=== PATIENT | female | born 1945 | race Caucasian/White ===

== ENCOUNTER → 2020-03-09 10:10 | Outpatient (REF) | payer MEDICARE, SELFPAY ==
--- NOTE | 2020-03-09 | NM_ITS ---
Lexiscan Myocardial perfusion study Indication: Chest pain, assess for coronary artery disease and ischemia Technique: The patient was brought in for a Lexiscan perfusion study on 03/09/2020 and was injected 0.4 mg of Lexiscan intravenously. Within a minute of this injection 25 mCi of sestamibi was given intravenously. Images were obtained using the SPECT gamma camera interlaced with the gating device. Images were obtained in supine position. Resting perfusion study was performed on 03/12/2020. Patient was administered 25 mCi of sestamibi intravenously at rest. Images were then obtained in supine position. Total DLP 55mGy-cm. Images were processed with the software and compared side to side in short axis, horizontal long axis and vertical long axis views. Findings: Raw acquisition was reviewed. The stress perfusion study showed no significant perfusion abnormality. Both uncorrected as well as CT attenuation corrected images were reviewed. The gated study shows normal LV systolic function with calculated LVEF of > 75%. LV cavity is normal in size. The gated study shows normal wall thickening and contraction of segments. Resting study shows no significant perfusion abnormality. Gating at rest reveals normal wall motion with ejection fraction at > 75%. The findings are consistent with no reversible or fixed perfusion abnormality. Impression: 1. Myocardial perfusion imaging study shows normal myocardial perfusion. No evidence of any ischemia or infarction. 2. Gated LVEF is > 75%. 3. Transient ischemic dilatation not present. EKG component of the test reported separately.
--- NOTE | 2020-03-09 10:00 | CA_ITS ---
Acquisition Time: 2020-03-09 10:19:34 Total Exercise Time: 00:05:44 Test Indications: COPD, CAD Medications: SEE CARD Protocol: JOSE E Max HR: 131 BPM 89% of Pred: 147 BPM Max BP: 178/060 mmHG Max Work Load: 2.7 METS Pt attempted exercise, however unable to walk on the treadmil. Test switched to Lexiscan. Pt tolerated well. Denies any anginal sx. Pt reports to have a headache , sx reversed with Aminophyline 75 mg IV. Tylenol 650 mg ordered. EKG without any arrhythmias, Non-diagnostic for ischemia. Nuclear images to follow. Normotensive response to test. Test reviewed with Dr. Hardy. Referred By: Bronson Hardy Overread By: Mariel Brian
[2020-03-09 14:01] LABS: MANUAL DIFF FLAG NO
[2020-03-09 14:08] LABS: Basophils Percent Auto 0.2 % (0-2); Eosinophils Absolute Auto 0.1 X10*3/uL (0.0-0.4); Eosinophils Percent Auto 0.6 % (0-4); Hematocrit 43.1 % (37-47); Hemoglobin 13.6 g/dl (12.0-16.0); Imm Gran Abs Auto 0.06 X10*3/uL (0.00-0.03); Imm Gran Pct Auto 0.5 % (0.0-0.4); Lymphocytes Percent Auto 15.6 % (20-40); Mean Corpuscular HGB Conc 31.6 g/dl (31.0-35.0); Mean Corpuscular Hemoglobin 30.1 pg (27.0-33.0); Mean Corpuscular Volume 95.4 fL (80-98); Mean Platelet Volume 8.8 fL (9.4-12.3); Monocytes Absolute Auto 0.8 X10*3/uL (0.1-1.2); Monocytes Percent Auto 6.1 % (2-11); Neutrophils Absolute Auto 9.8 X10*3/uL (2.0-8.3); Platelet Count 274 X10*3/uL (160-400); Red Blood Count 4.52 X10*6/uL (4.20-5.50); Red Cell Distribution Width 14.7 % (11.0-16.0); White Blood Count 12.7 X10*3/uL (4.8-10.8)
[2020-03-09 14:41] LABS: Alanine Aminotransferase 8 U/L (0-31); Albumin Level 4.2 g/dL (3.5-5.0); Alkaline Phosphatase 133 U/L (39-117); Anion Gap 12 (12-20); Aspartate Amino Transferase 16 U/L (5-31); Bilirubin Total 0.3 mg/dL (0.0-1.0); Blood Urea Nitrogen 13 mg/dL (9-16); Calcium 9.2 mg/dL (8.4-10.2); Carbon Dioxide 26 mmol/L (22-29); Chloride 106 mmol/L (96-108); Estimated Glomerular Filt Rate > 60; Glucose Random 88 mg/dL (60-115); Potassium 3.6 mmol/l (3.3-5.1); Sodium 140 mmol/L (135-145); Total Protein 6.7 g/dL (6.5-8.0)
[2020-03-09 14:54] LABS: TSH reflex Free T4 0.86 mIU/mL (0.32-4.0)
[2020-03-09 15:30] LABS: Vitamin B12 368 pg/mL (200-900)
[2020-03-12 14:37] LABS: LDL Cholesterol Direct 54 mg/dL (<100)
== END ==
LOC: HO.CARD 10:10
PROVIDERS: Absent Provider Internal Medicine; PCP Internal Medicine; Visit Provider Internal Medicine
DX: R07.2 Precordial pain (principal); E78.5 Hyperlipidemia, unspecified; J44.9 Chronic obstructive pulmonary disease, unspecified; M85.80 Other specified disorders of bone density and structure, unspecified site; I65.23 Occlusion and stenosis of bilateral carotid arteries; I25.10 Atherosclerotic heart disease of native coronary artery without angina pectoris; F17.200 Nicotine dependence, unspecified, uncomplicated; K21.9 Gastro-esophageal reflux disease without esophagitis; M25.50 Pain in unspecified joint; I48.0 Paroxysmal atrial fibrillation; Z99.81 Dependence on supplemental oxygen
CPT/HCPCS: 36415; 78452; 80053; 82607; 83721; 84443; 85025; 93017; A9500; J0280; J2785

== ENCOUNTER 2020-03-15 13:44 | Outpatient (REF) | payer MEDICARE, SELFPAY ==
--- NOTE | 2020-03-15 | MM_ITS ---
EXAMINATION: MM SCREENING DIGITAL BREAST TOMOSYNTHESIS, BILATERAL CLINICAL INFORMATION: Screening. Asymptomatic. The lifetime risk of breast cancer based on the Tyrer-Cuzick Model is 1%. COMPARISON: Mammography: 11/03/2017, 06/13/2016 TECHNIQUE: Digital breast tomosynthesis is performed in both the craniocaudal and mediolateral oblique views along with computer-aided detection (CAD). Synthesized 2D images are generated from the tomosynthesis. FINDINGS: There are scattered areas of fibroglandular density (ACR BI-RADS breast composition Category b). There are no significant masses, abnormal calcifications, or other abnormalities. There are scattered bilateral round and coarse and vascular calcifications again seen. No significant changes. IMPRESSION: No mammographic evidence of malignancy. ASSESSMENT: BI-RADS 2: Benign RECOMMENDATION: Routine annual mammography screening. This patient's information was entered into a reminder system with a target due date for their next mammogram.
== END 2020-03-15 13:45 | disposition home or self-care (01) ==
LOC: HO.MAMMO 13:44
PROVIDERS: PCP Internal Medicine; Visit Provider Internal Medicine
DX: Z12.31 Encounter for screening mammogram for malignant neoplasm of breast (principal)
CPT/HCPCS: 77063; 77067; 78014

== ENCOUNTER → 2020-03-22 09:08 | Outpatient (BNVA) | payer MEDICARE, SELFPAY | PROVIDERS: PCP Anesthesiology; Visit Provider Internal Medicine | DX: R07.2 Precordial pain (principal); I25.10 Atherosclerotic heart disease of native coronary artery without angina pectoris; I48.0 Paroxysmal atrial fibrillation; I65.23 Occlusion and stenosis of bilateral carotid arteries; R20.0 Anesthesia of skin; F17.200 Nicotine dependence, unspecified, uncomplicated | CPT/HCPCS: 99214 ==

== ENCOUNTER 2020-04-18 10:45 | Outpatient (REF) | payer MEDICARE, SELFPAY ==
--- NOTE | 2020-04-18 10:51 | CT_ITS ---
EXAMINATION: CT ANGIOGRAM HEAD CT ANGIOGRAM NECK CLINICAL INFORMATION: Anesthesia of skin. COMPARISON: CT head from 12/12/2018. Brain MRI from 08/25/2017. TECHNIQUE: Initial noncontrast warehouse shipping supervisor imaging of the head and neck was performed. Noncontrast head CT was also performed. Test bolus sequences followed by intravenous administration 80 mL of Omnipaque 350. Helical imaging was performed in the axial plane from the aortic arch to the skull vertex. Delayed postcontrast imaging of the head was also performed. The data was processed at the research technologist's workstation for generation of MIP sequences. Angled MIPs and volume rendered reformatted images were also generated at an offline 3D workstation. Stenoses are assessed in accordance with NASCET criteria unless otherwise indicated. DLP: 1993 mGy-cm This CT examination was performed using dose optimization techniques as appropriate, variously including the following: *Automated exposure control. *Adjustment of mA and/or kV according to patient size (this includes techniques or standardized protocols for targeted exams where dose is matched to indication/reason for exam; i.e. extremities or head). *Use of iterative reconstruction technique. FINDINGS: CT Head: There is no evidence of acute intracranial hemorrhage or edematous territorial infarction. Scattered hypoattenuation in the periventricular and deep white matter are consistent with mild to moderate microangiopathy. Grey-white matter differentiation is preserved. The ventricles are normal in size and configuration. No evidence for obstructive hydrocephalus. No abnormal mass effect or midline shift. No extra-axial fluid collections. No pathologic intra-axial enhancement or regional oligemia. No acute soft tissue or osseous abnormalities. The patient is edentulous.Moderate rightward nasal septal deviation. Mild mucosal thickening of the paranasal sinuses. The mastoid air cells and middle ear cavities are clear. CT Neck: The thyroid gland and remaining cervical soft tissues are within normal limits. Moderate multilevel degenerative spondyloarthropathy of the cervical spine. Straightening of the normal cervical lordosis. Advanced degenerative disc disease from C3-C7 with disc-osteophyte complexes. Moderate facet and uncovertebral joint arthropathy leads to osseous encroachment on the neural foramina from C3-C7. CT Upper Chest: The visualized lung apices are notable for moderate underlying centrilobular emphysema. Moderate subpleural irregular reticulations. Neck CTA: Aortic Arch: Normal contour and caliber with moderate calcific atherosclerotic disease. Two vessel branching pattern of the arch with left common carotid artery arising from the brachiocephalic trunk. Great Vessel Origins: No significant stenosis of the branch origins. Right Common Carotid Artery: Normal opacification without focal stenosis or occlusion. Cervical Right Internal Carotid Artery: Calcific atherosclerotic disease of the carotid bulb and proximal internal carotid artery causing less than 50% stenosis. Left Common Carotid Artery: Normal opacification without focal stenosis or occlusion. Cervical Left Internal Carotid Artery: Calcific atherosclerotic disease of the carotid bulb and proximal internal carotid artery causing less than 50% stenosis. Cervical Right Vertebral Artery: Co-dominant. Normal opacification without focal stenosis or occlusion. Cervical Left Vertebral Artery: Co-dominant. Normal opacification without focal stenosis or occlusion. Brain CTA: Intracranial Internal Carotid Arteries: Calcific atherosclerotic disease of the intracranial internal carotid arteries without occlusion or flow-limiting stenosis. Normal contrast opacification of the petrous, cavernous, paraophthalmic, and supraclinoid segments of the internal carotid arteries without focal stenosis. There is a 0.1 cm infundibulum at the origin of the right posterior communicating artery. Right Anterior Cerebral Artery: There is a 0.25 cm saccular aneurysm projecting posteriorly and inferiorly from the distal A1 segment of the right anterior cerebral artery (image [id number]). Otherwise, normal A1 segment. Normal opacification of the distal segments of the CLARE. Left Anterior Cerebral Artery: Normal A1 segment. Normal opacification of the distal segments of the CLARE. Anterior Communicating Artery: Normal. Right Middle Cerebral Artery: Normal opacification of the M1 segment of the MCA without focal stenosis or occlusion. Normal arborization of the distal segments. Left Middle Cerebral Artery: Normal opacification of the M1 segment of the MCA without focal stenosis or occlusion. Normal arborization of the distal segments. Right Vertebral Artery: Normal opacification of the V4 segment. Normal opacification of the proximal segments of the posterior inferior cerebellar artery. Left Vertebral Artery: Normal opacification of the V4 segment. Normal opacification of the proximal segments of the posterior inferior cerebellar artery. Basilar Artery: Normal opacification without focal stenosis or occlusion. Normal appearance of the proximal superior cerebellar arteries. Right Posterior Cerebral Artery: Normal P1 segment. Normal opacification of the distal segments of the WAREHOUSE SHIPPING SUPERVISOR. Left Posterior Cerebral Artery: The P1 segment is atretic. origin of the WAREHOUSE SHIPPING SUPERVISOR with robust opacification of the posterior communicating artery. Normal opacification of the distal segments of the WAREHOUSE SHIPPING SUPERVISOR. Normal opacification of the superior sagittal, straight, transverse, and sigmoid sinuses. CT/CT angio head neck IMPRESSION: 1. No evidence of acute intracranial hemorrhage or edematous territorial infarction. 2. CTA of the head and neck without proximal occlusion or flow-limiting stenosis. Atherosclerotic disease of the bilateral ICAs causes less than 50% stenoses. 3. There is a 0.25 cm saccular aneurysm arising from the distal A1 segment of the right CLARE. 4. Mild to moderate underlying microangiopathy. 5. Emphysema.
[2020-04-18 11:39] LABS: Anion Gap 12 (12-20); Blood Urea Nitrogen 18 mg/dL (9-16); Calcium 8.6 mg/dL (8.4-10.2); Carbon Dioxide 24 mmol/L (22-29); Chloride 108 mmol/L (96-108); Estimated Glomerular Filt Rate > 60; Glucose Random 111 mg/dL (60-115); Potassium 3.8 mmol/l (3.3-5.1); Sodium 140 mmol/L (135-145)
[2020-04-18] MEDS: iohexoL 350 MG/ML 100 ML INFUS..BTL IV (12:56)
== END 2020-04-18 10:46 | disposition home or self-care (01) ==
LOC: HO.CT 10:45
PROVIDERS: Visit Provider Internal Medicine
DX: I48.0 Paroxysmal atrial fibrillation (principal); R20.0 Anesthesia of skin
CPT/HCPCS: 70496; 70498; 80048; Q9967

== ENCOUNTER → 2020-04-25 12:48 | Outpatient (BNVA) | payer MEDICARE, SELFPAY | PROVIDERS: PCP Internal Medicine; Referring Provider Internal Medicine; Visit Provider Internal Medicine | DX: I25.10 Atherosclerotic heart disease of native coronary artery without angina pectoris (principal); I48.0 Paroxysmal atrial fibrillation; I65.23 Occlusion and stenosis of bilateral carotid arteries; R07.2 Precordial pain; R20.0 Anesthesia of skin; F17.200 Nicotine dependence, unspecified, uncomplicated; Z79.01 Long term (current) use of anticoagulants; Z79.899 Other long term (current) drug therapy | CPT/HCPCS: 99212 ==

== ENCOUNTER 2020-07-04 13:49 | Outpatient (REF) | payer MEDICARE, SELFPAY | END 2020-07-04 13:50 | disposition home or self-care (01) | LOC: HO.LAB 13:49 | PROVIDERS: Visit Provider Nurse Practitioner Family | DX: R31.9 Hematuria, unspecified (principal); N39.0 Urinary tract infection, site not specified | CPT/HCPCS: 87086 ==

== ENCOUNTER → 2020-09-04 13:27 | Outpatient (BNVA) | payer OTHER, SELFPAY | PROVIDERS: PCP Internal Medicine; Visit Provider Internal Medicine | DX: Z13.89 Encounter for screening for other disorder (principal) | CPT/HCPCS: Q3014 ==

== ENCOUNTER 2020-10-19 11:10 | Outpatient (REF) | payer OTHER, SELFPAY ==
--- NOTE | ~2020-10-19 | XR_ITS ---
EXAMINATION: XR LUMBOSACRAL SPINE CLINICAL INFORMATION: Low back pain COMPARISON: Previous x-ray April [address] of the abdomen and pelvis March 2019 TECHNIQUE: Three views of the lumbosacral spine. FINDINGS: There is curvature of the lumbar spine to the right. Bone alignment is otherwise normal. There are L1, L2 and L4 vertebral body compression fractures. The L4 vertebral body compression fracture appears slightly increased from prior exam April 2018. No new fracture is seen. There is degenerative disc disease and facet arthritis of the lower lumbar spine. There is evidence of atherosclerotic disease. There is soft tissue calcification in the left upper quadrant. This projects anteriorly on the lateral view and may represent something in the stomach. XR/XR lumbar spine 2-3V IMPRESSION: L1, L2 and L4 vertebral body compression fractures. The L4 vertebral body compression fracture appears increased from previous exams. Degenerative changes of the lower lumbar spine.
[2020-10-19 14:06] LABS: Hematocrit 41.2 % (37-47); Hemoglobin 13.1 g/dl (12.0-16.0)
[2020-10-19 14:19] LABS: Alanine Aminotransferase 10 U/L (0-31); Albumin Level 4.1 g/dL (3.5-5.0); Alkaline Phosphatase 153 U/L (39-117); Anion Gap 16 (12-20); Aspartate Amino Transferase 18 U/L (5-31); Bilirubin Total 0.6 mg/dL (0.0-1.0); Blood Urea Nitrogen 8 mg/dL (9-16); Calcium 9.3 mg/dL (8.4-10.2); Carbon Dioxide 25 mmol/L (22-29); Chloride 105 mmol/L (96-108); Cholesterol 150 mg/dL; Estimated Glomerular Filt Rate > 60; Glucose Fasting 94 mg/dL (60-99); HDL Cholesterol 67 mg/dL; LDL Cholesterol Calculated 59 mg/dl; Magnesium 1.9 mg/dL (1.6-2.6); Potassium 3.6 mmol/L (3.3-5.1); Sodium 142 mmol/L (135-145); Total Protein 6.8 g/dL (6.5-8.0); Triglycerides 121 mg/dL
== END 2020-10-19 11:11 | disposition home or self-care (01) ==
LOC: HO.HMGCLDS 11:10
PROVIDERS: PCP Internal Medicine; Visit Provider Internal Medicine
DX: M54.5 Low back pain (principal); F41.8 Other specified anxiety disorders; I10 Essential (primary) hypertension; E78.9 Disorder of lipoprotein metabolism, unspecified; I48.0 Paroxysmal atrial fibrillation; F17.200 Nicotine dependence, unspecified, uncomplicated; Z91.09 Other allergy status, other than to drugs and biological substances
CPT/HCPCS: 36415; 72100; 80053; 80061; 83735; 85014; 85018

== ENCOUNTER 2021-01-16 13:58 | Outpatient (REF) | payer OTHER, SELFPAY ==
[2021-01-16 16:23] LABS: MANUAL DIFF FLAG NO
[2021-01-16 16:27] LABS: Basophils Absolute Auto 0.1 X10*3/uL (0.0-0.2); Basophils Percent Auto 0.5 % (0-2); Eosinophils Absolute Auto 0.1 X10*3/uL (0.0-0.4); Eosinophils Percent Auto 0.7 % (0-4); Hematocrit 39.5 % (37-47); Hemoglobin 12.7 g/dl (12.0-16.0); Imm Gran Abs Auto 0.05 X10*3/uL (0.00-0.03); Imm Gran Pct Auto 0.5 % (0.0-0.4); Lymphocytes Absolute Auto 2.5 X10*3/uL (1.2-4.9); Lymphocytes Percent Auto 23.1 % (20-40); Mean Corpuscular HGB Conc 32.2 g/dl (31.0-35.0); Mean Corpuscular Hemoglobin 29.7 pg (27.0-33.0); Mean Corpuscular Volume 92.5 fL (80-98); Mean Platelet Volume 9.4 fL (9.4-12.3); Monocytes Absolute Auto 0.7 X10*3/uL (0.1-1.2); Monocytes Percent Auto 6.8 % (2-11); Neutrophils Absolute Auto 7.4 X10*3/uL (2.0-8.3); Neutrophils Percent Auto 68.4 % (45-73); Platelet Count 370 X10*3/uL (160-400); Red Blood Count 4.27 X10*6/uL (4.20-5.50); Red Cell Distribution Width 15.4 % (11.0-16.0); White Blood Count 10.8 X10*3/uL (4.8-10.8)
[2021-01-16 17:02] LABS: Alanine Aminotransferase < 6 U/L (0-31); Albumin Level 4.1 g/dL (3.5-5.0); Alkaline Phosphatase 132 U/L (39-117); Anion Gap 16 (12-20); Aspartate Amino Transferase 17 U/L (5-31); Bilirubin Total 0.5 mg/dL (0.0-1.0); Blood Urea Nitrogen 7 mg/dL (9-16); Calcium 9.8 mg/dL (8.4-10.2); Carbon Dioxide 23 mmol/L (22-29); Chloride 106 mmol/L (96-108); Estimated Glomerular Filt Rate > 60; Glucose Random 87 mg/dL (60-115); Potassium 3.8 mmol/L (3.3-5.1); Sodium 141 mmol/L (135-145); Total Protein 6.7 g/dL (6.5-8.0)
== END 2021-01-16 13:59 | disposition home or self-care (01) ==
LOC: HO.HMGCLDS 13:58
PROVIDERS: PCP Internal Medicine; Visit Provider Internal Medicine
DX: Z01.818 Encounter for other preprocedural examination (principal); F41.8 Other specified anxiety disorders; I10 Essential (primary) hypertension; E78.9 Disorder of lipoprotein metabolism, unspecified
CPT/HCPCS: 36415; 80053; 85025

== ENCOUNTER 2021-06-13 10:43 | Outpatient (REF) | payer OTHER, SELFPAY ==
--- NOTE | ~2021-06-13 | CT_ITS ---
EXAMINATION: CT ABDOMEN AND PELVIS WITH CONTRAST CLINICAL INFORMATION: Unspecified abdominal pain COMPARISON: 03/17/2019 TECHNIQUE: Multidetector volumetric images were obtained from the superior aspect of the liver through the pubic symphysis following administration 85 mL of Omnipaque 350 intravenous contrast. Sagittal and coronal reformatted images were obtained on the technologist's workstation. Oral contrast: Yes This CT examination was performed using dose optimization techniques as appropriate, variously including the following: *Automated exposure control *Adjustment of mA and/or kV according to patient size (this includes techniques or standardized protocols for targeted exams where dose is matched to indication/reason for exam; i.e. extremities or head) *Use of iterative reconstruction technique DLP: 239 mGy-cm FINDINGS: LUNG BASES: The visualized lung bases are unremarkable. LIVER, GALLBLADDER, AND BILIARY TREE: The liver is normal in size, shape, and attenuation. No focal hepatic lesion or biliary ductal dilatation is present. The gallbladder is unremarkable with no evidence of radiopaque gallstones, gallbladder wall thickening, or obvious pericholecystic inflammatory changes. PANCREAS: Unremarkable. SPLEEN: Unremarkable. ADRENAL GLANDS: Unremarkable. KIDNEYS AND URETERS: The kidneys are normal in size, shape, and attenuation. No hydronephrosis, hydroureter, or calculi seen. No perinephric stranding. BLADDER: Unremarkable. GASTROINTESTINAL TRACT: Small bowel and colon are non-dilated. No bowel wall thickening. No pericolonic inflammatory changes to suggest colitis or diverticulitis. ABDOMINAL WALL: No significant hernia is appreciated. LYMPH NODES: Normal. VASCULAR: Moderate atherosclerosis of the abdominal aorta. No aneurysm. There is moderate atherosclerosis of the celiac and superior mesenteric artery origins and bilateral renal artery origins. PELVIC VISCERA: Suspect hysterectomy. No pelvic mass. OSSEOUS STRUCTURES: Progressive compression of the L4 vertebral body. Stable compression of the L2 vertebral body. CT/CT abdomen pelvis w con IMPRESSION: No explanation for abdominal pain. Fleischner guidelines were followed.
[2021-06-13 11:51] LABS: Blood Urea Nitrogen 8 mg/dL (9-16); Estimated Glomerular Filt Rate > 60
[2021-06-13] MEDS: Barium Sulfate Oral (Berry) 450 ML ORAL.SUSP 900 ML PO (14:39)
[2021-06-13] MEDS: iohexoL 350 MG/ML 100 ML INFUS..BTL IV (14:40)
== END 2021-06-13 10:44 | disposition home or self-care (01) ==
LOC: HO.CT 10:43
PROVIDERS: PCP Internal Medicine; Visit Provider Internal Medicine
DX: G89.29 Other chronic pain (principal); M54.9 Dorsalgia, unspecified; S32.009S Unspecified fracture of unspecified lumbar vertebra, sequela; X58.XXXS Exposure to other specified factors, sequela; Y93.9 Activity, unspecified; Y92.9 Unspecified place or not applicable; Y99.8 Other external cause status; R10.9 Unspecified abdominal pain; R63.4 Abnormal weight loss; R63.0 Anorexia; Z72.0 Tobacco use
CPT/HCPCS: 36415; 74177; 82565; 84520; Q9967

== ENCOUNTER → 2021-06-24 14:35 | Outpatient (BNVA) | payer OTHER, SELFPAY | PROVIDERS: PCP Internal Medicine; Visit Provider Internal Medicine | DX: J44.9 Chronic obstructive pulmonary disease, unspecified (principal); Z87.891 Personal history of nicotine dependence | CPT/HCPCS: 99212 ==

== ENCOUNTER → 2021-06-26 14:30 | Outpatient (BNVA) | payer OTHER, SELFPAY | PROVIDERS: PCP Internal Medicine; Referring Provider Internal Medicine; Visit Provider Internal Medicine | DX: I25.10 Atherosclerotic heart disease of native coronary artery without angina pectoris (principal); I48.0 Paroxysmal atrial fibrillation; I65.23 Occlusion and stenosis of bilateral carotid arteries; F17.210 Nicotine dependence, cigarettes, uncomplicated; Z79.01 Long term (current) use of anticoagulants; Z79.899 Other long term (current) drug therapy | CPT/HCPCS: 93005; 99212 ==

== ENCOUNTER 2021-07-31 14:15 | Outpatient (REF) | payer MEDICARE, SELFPAY ==
--- NOTE | ~2021-07-31 | XR_ITS ---
EXAMINATION: XR CHEST CLINICAL INFORMATION: COPD COMPARISON: February 25, 2019 and December 12, 2018 TECHNIQUE: 2 views of the chest were obtained. FINDINGS: There is hyperinflation lungs. No acute parenchymal disease is appreciated. No pneumothorax or pleural effusion. Heart normal size. No evidence of pulmonary edema. Status post previous left shoulder surgery. There is osteopenia visualized bones. XR/XR chest 2V IMPRESSION: Hyperinflation without acute parenchymal disease.
== END 2021-07-31 14:16 | disposition home or self-care (01) ==
LOC: HO.HMGCX 14:15
PROVIDERS: Visit Provider Internal Medicine
DX: J44.9 Chronic obstructive pulmonary disease, unspecified (principal)
CPT/HCPCS: 71046

== ENCOUNTER 2021-08-01 13:37 | Outpatient (REF) | payer MEDICARE, SELFPAY ==
--- NOTE | ~2021-08-01 | MR_ITS ---
EXAMINATION: MR LUMBAR SPINE WITHOUT CONTRAST CLINICAL INFORMATION: 76-year-old with complaints of low back pain, right hip and leg pain anteriorly in the right leg and foot. Radiculopathy, lumbar region, low back pain. COMPARISON: 12/17/2017 MRI TECHNIQUE: MRI of the lumbar spine was obtained using routine sequences without contrast. FINDINGS: Coronal Alignment: Slight upper lumbar dextrocurvature and partially visualized thoracic levocurvature similar to previous study. Sagittal Alignment: There is 2 mm of grade 1 degenerative spondylolisthesis at L5-S1 which has developed since previous exam. Otherwise lumbar lordotic curvature is relatively maintained. Lumbosacral Junction: Normal. Vertebral Bodies: [id number] compression deformity noted along the superior endplate of L5 asymmetric to the left has developed since previous exam with a central predominance. Since the previous study, there has been approximately 40-50% loss of height of the L4 vertebral body, consistent with a compression fracture, which appears incompletely healed. There is a stable mild anterior wedge compression deformity of L2. There is also a stable mild anterior wedge compression deformity of L1. Disc Spaces and Endplates: Multilevel disc desiccation is again noted. Remodeling of the endplates at L4-L5 and L3-L4 have occurred since the previous exam related to the L4 compression fracture. Prominent anterior marginal spondylosis at L4-L5 and L3-L4 has developed, partially related to the anteropulsion of L4 with mild retropulsion of the superior and inferior endplates of L4 as well. Disc space height loss and disc desiccation at L5-S1 is stable. Anterolateral spondylosis at L2-L3 and L1-L2 are similar to previous study. Spinal Canal: No abnormal developmental findings. Bone Marrow: Type I degenerative marrow signal changes are noted along the endplates at L5-S1 which have developed since previous exam. There are type I degenerative marrow signal changes along the inferior endplate of L3 also developed since previous exam. Minimal type I degenerative endplate change along the anterior aspect of the superior endplate of L4. Mild marrow edema noted along the superior endplate of L4 with low T1 signal likely indicates a nonhealed compression fracture. Conus Medullaris: Terminates at L1. Morphology and signal is normal. Intradural Nerve Roots: Within normal limits. L5-S1: Small central extruded disc herniation with slight cephalad migration is noted with mild indentation of the ventral thecal sac superimposed on diffuse disc bulging somewhat progressed from previous study. Moderate bilateral facet arthropathy appears slightly more prominent on current exam. Marked right-sided paravertebral disc osteophyte complex appears slightly more prominent. Moderate to severe right-sided neural foraminal stenosis and moderate left-sided neural foraminal stenosis have progressed from previous study, with right L5 nerve root impingement progressed. No significant canal stenosis. L4-L5: Diffuse disc bulging with a superimposed right subarticular to foraminal disc herniation progressed from previous study, with flattening of the dural sac asymmetric to the right, partly related to a mild degree of retropulsion of the inferior endplate from the L4 compression fracture. There is moderate bilateral facet arthropathy progressed from previous study, now with mild right subarticular recess stenosis without significant central spinal canal stenosis. Severe right-sided neural foraminal stenosis markedly progressed from previous exam. There is also severe left-sided neural foraminal stenosis progressed from previous study with bilateral L4 nerve root impingement, right more than left. L3-L4: Diffuse disc bulging noted asymmetric to the left progressed from previous study, with flattening of the dural sac, bilateral facet arthropathy and ligamentum flavum thickening progressed from previous study. There is a superimposed left paramedian extruded disc herniation with cephalad migration and indentation of the left ventral thecal sac. There is moderate left subarticular recess stenosis which has developed on current study without definite neural impingement. No significant central spinal canal stenosis. There is moderate left-sided neural foraminal stenosis, with asymmetric disc bulging abutting the exiting left L3 nerve root on current exam. L2-L3: Minimal posterolateral foraminal disc protrusions, right more than left, slightly more apparent on the right without neural impingement. Bilateral facet arthropathy similar to previous exam. No significant canal stenosis or neural foraminal compromise. L1-L2: Small bilateral foraminal disc protrusions stable in appearance without neural impingement, with stable ligamentum flavum thickening and facet arthrosis. No canal or neural foraminal stenosis. Paraspinal/Retroperitoneal: The paravertebral soft tissues appear unremarkable. MR/MR lumbar spine wo con IMPRESSION: 1. Interval moderate compression fracture of the L4 vertebral body which is not yet healed. Interval mild to moderate compression fracture deformity along the superior and plate of L5 asymmetric to the left which appears predominately healed. Stable mild compression fracture deformities of L1 and L2. 2. Multilevel disc bulging and facet arthropathy, some of which is progressed from previous study as described above, with a left paramedian extruded disc herniation with cephalad migration at L3-L4 on current exam. Mild right subarticular recess stenosis at L4-L5 on current study and [id number] left subarticular recess stenosis at L3-L4 also developed since previous exam. No central spinal canal stenosis. 3. Multilevel bilateral neural foraminal stenosis, progressed at multiple levels as detailed above with multilevel bilateral exiting neural impingement as described by level above.
== END 2021-08-01 13:38 | disposition home or self-care (01) ==
LOC: HO.MRI 13:37
PROVIDERS: Visit Provider Internal Medicine
DX: M54.16 Radiculopathy, lumbar region (principal); S32.009A Unspecified fracture of unspecified lumbar vertebra, initial encounter for closed fracture
CPT/HCPCS: 72148

== ENCOUNTER 2021-08-13 15:51 | Outpatient (REF) | payer MEDICARE, SELFPAY ==
--- NOTE | ~2021-08-13 | CT_ITS ---
EXAMINATION: CT CHEST SCREENING CLINICAL INFORMATION: Current smoker. 67 pack year history. COMPARISON: Previous chest CTA April 2016 TECHNIQUE: Multidetector volumetric CT imaging of the chest is performed without contrast using low dose technique. Additional 2D coronal and sagittal reformatted images and axial 3D maximum intensity projection (MIP) images are generated on the CT workstation. This CT examination was performed using dose optimization techniques as appropriate, variously including the following: *Automated exposure control *Adjustment of mA and/or kV according to patient size (this includes techniques or standardized protocols for targeted exams where dose is matched to indication/reason for exam; i.e. extremities or head) *Use of iterative reconstruction technique DLP: 42 mGy-cm FINDINGS: LUNGS: There is evidence of emphysema. There is biapical pleural and parenchymal scarring. There is scarring or subsegmental atelectasis in the anterior segment of the right upper lobe. There is a 3 mm right upper lobe nodule, axial image 218 series 5. There is a 2 mm peripheral or subpleural probably calcified left upper lobe nodule, axial image 261 series 5. There are several small peripheral or subpleural nodules or areas of pleural thickening in the major fissure. There is endobronchial soft tissue opacification in the right lower lobe, for example, axial image 317 series 5. There are increased peripheral reticular markings at the lung bases, right greater than left, questionable for mild interstitial disease. No endobronchial or endotracheal lesion is seen. MEDIASTINUM: The heart does not appear enlarged. There is coronary artery calcification. There is a small pericardial effusion. The mediastinum is otherwise normal. PLEURA: There is no pleural effusion. No pleural mass or thickening. AXILLA: No lymphadenopathy. UPPER ABDOMEN: There is evidence of atherosclerotic disease. OSSEOUS STRUCTURES: There is an old mild T9 vertebral body compression fracture. There are degenerative changes of the spine. There are postsurgical changes to the left shoulder. CT/CT lung screening IMPRESSION: Emphysema. Biapical pleural parenchymal scarring. Scarring or subsegmental atelectasis in the anterior segment of the right upper lobe. Small pulmonary nodules or micronodules. Question mild interstitial disease at the lung bases. Coronary artery calcification and severe atherosclerotic disease. Small pericardial effusion. ASSESSMENT: Lung-RADS category 2: Benign RECOMMENDATION: Annual low-dose chest CT follow-up recommended.
== END 2021-08-13 15:52 | disposition home or self-care (01) ==
LOC: HO.CT 15:51
PROVIDERS: Visit Provider Surgery
DX: Z12.2 Encounter for screening for malignant neoplasm of respiratory organs (principal); F17.210 Nicotine dependence, cigarettes, uncomplicated
CPT/HCPCS: 71271

== ENCOUNTER 2021-09-06 | Outpatient (REF) | payer OTHER, SELFPAY | END 2021-09-06 00:01 | LOC: CF | PROVIDERS: Visit Provider Physician Assistant Medical | DX: Z87.891 Personal history of nicotine dependence (principal) | CPT/HCPCS: G0296 ==

== ENCOUNTER → 2021-09-13 15:46 | Outpatient (BNVA) | payer OTHER, SELFPAY | PROVIDERS: PCP Internal Medicine; Visit Provider Nurse Practitioner Family | DX: M25.561 Pain in right knee (principal); M25.551 Pain in right hip; M25.552 Pain in left hip; M79.7 Fibromyalgia; M51.36 Other intervertebral disc degeneration, lumbar region; M43.06 Spondylolysis, lumbar region; M54.16 Radiculopathy, lumbar region | CPT/HCPCS: 99202 ==

== ENCOUNTER → 2021-10-11 13:43 | Outpatient (BNVA) | payer OTHER, SELFPAY | PROVIDERS: PCP Internal Medicine; Visit Provider Nurse Practitioner Family | DX: Z51.81 Encounter for therapeutic drug level monitoring (principal); F11.20 Opioid dependence, uncomplicated; M79.7 Fibromyalgia; M54.16 Radiculopathy, lumbar region; M51.36 Other intervertebral disc degeneration, lumbar region; M54.9 Dorsalgia, unspecified; G89.29 Other chronic pain | CPT/HCPCS: Q3014 ==

== ENCOUNTER 2021-12-10 06:07 | Outpatient (REF) | payer OTHER, SELFPAY ==
--- NOTE | ~2021-12-10 | FL_ITS ---
EXAMINATION: XR FLUOROSCOPY WITH IMAGES CLINICAL INFORMATION: Radiculopathy lumbar region. COMPARISON: None. TECHNIQUE: Fluoroscopy performed by Anya Anderson. Fluoroscopy time: 0.3 minutes DAP: 2.6 Gycm2 Images: 1 FINDINGS: Lateral view of the lower lumbar spine demonstrates needle placement and contrast injection over the right posterior elements at L4-L5. FL/FL guidance in treatment room IMPRESSION: Fluoroscopy guidance for pain management procedure.
== END 2021-12-10 06:08 | disposition home or self-care (01) ==
LOC: HO.RADIR 06:07
PROVIDERS: Visit Provider Anesthesiology
DX: M54.16 Radiculopathy, lumbar region (principal); M51.36 Other intervertebral disc degeneration, lumbar region; M79.7 Fibromyalgia
CPT/HCPCS: 62323; J3300

== ENCOUNTER 2022-01-10 12:16 | Outpatient (REF) | payer OTHER, SELFPAY ==
[2022-01-10 13:35] LABS: MANUAL DIFF FLAG NO
[2022-01-10 13:49] LABS: Basophils Absolute Auto 0.1 X10*3/uL (0.0-0.2); Basophils Percent Auto 0.4 % (0-2); Eosinophils Percent Auto 0.4 % (0-4); Hematocrit 41.4 % (37.0-47.0); Hemoglobin 13.6 g/dl (12.0-16.0); Imm Gran Abs Auto 0.12 X10*3/uL (0.00-0.03); Imm Gran Pct Auto 1.1 % (0.0-0.4); Lymphocytes Absolute Auto 2.3 X10*3/uL (1.2-4.9); Lymphocytes Percent Auto 20.4 % (20-40); Mean Corpuscular HGB Conc 32.9 g/dl (31.0-35.0); Mean Corpuscular Hemoglobin 29.8 pg (27.0-33.0); Mean Corpuscular Volume 90.8 fL (80.0-98.0); Mean Platelet Volume 8.6 fL (9.4-12.3); Monocytes Absolute Auto 0.8 X10*3/uL (0.1-1.2); Monocytes Percent Auto 7.3 % (2-11); Neutrophils Absolute Auto 7.9 x10*3/uL (2.0-8.3); Neutrophils Percent Auto 70.4 % (45-73); Platelet Count 305 X10*3/uL (160-400); Red Blood Count 4.56 X10*6/uL (4.20-5.50); Red Cell Distribution Width 19.3 % (11.0-16.0); White Blood Count 11.1 X10*3/uL (4.8-10.8)
[2022-01-10 13:58] LABS: Appearance Urine HAZY; Color Urine YELLOW; Glucose Urine UA NEG (NEG); Leukocyte Esterase Urine NEG (NEG); Nitrite Urine NEG (NEG); Specific Gravity - Urine <= 1.005 (1.005-1.025); UACC Culture Trigger NO; Urine Blood 1+ (NEG); Urine Ketones NEG (NEG); Urine Protein NEG (NEG-TRACE)
[2022-01-10 14:00] LABS: Alanine Aminotransferase 12 U/L (0-31); Albumin Level 4.5 g/dL (3.5-5.0); Alkaline Phosphatase 125 U/L (39-117); Anion Gap 15 (12-20); Aspartate Amino Transferase 23 U/L (5-31); Bilirubin Total 0.6 mg/dL (0.0-1.0); Blood Urea Nitrogen 13 mg/dL (9-16); Calcium 9.5 mg/dL (8.4-10.2); Carbon Dioxide 25 mmol/L (22-29); Chloride 106 mmol/L (96-108); Cholesterol 161 mg/dL; Estimated Glomerular Filt Rate > 60; Glucose Fasting 89 mg/dL (60-99); HDL Cholesterol 77 mg/dL; LDL Cholesterol Calculated 58 mg/dl; Potassium 3.5 mmol/L (3.3-5.1); Sodium 142 mmol/L (135-145); Total Protein 7.1 g/dL (6.5-8.0); Triglycerides 132 mg/dL
[2022-01-10 14:21] LABS: TSH reflex Free T4 1.08 uIU/mL (0.32-4.0)
[2022-01-10 14:31] LABS: WBC Urine 0-2 /HPF (0-4)
== END 2022-01-10 12:17 | disposition home or self-care (01) ==
LOC: HO.HMGCLDS 12:16
PROVIDERS: PCP Nurse Practitioner Family; Visit Provider Nurse Practitioner Family
DX: Z00.00 Encounter for general adult medical examination without abnormal findings (principal); R35.0 Frequency of micturition
CPT/HCPCS: 36415; 80053; 80061; 81001; 84443; 85025; 87086

== ENCOUNTER → 2022-02-24 16:03 | Outpatient (BNVA) | payer OTHER, SELFPAY | PROVIDERS: PCP Nurse Practitioner Family; Visit Provider Anesthesiology | DX: M54.16 Radiculopathy, lumbar region (principal); M51.36 Other intervertebral disc degeneration, lumbar region; M79.7 Fibromyalgia; G89.29 Other chronic pain; M54.9 Dorsalgia, unspecified; Z87.81 Personal history of (healed) traumatic fracture | CPT/HCPCS: 99212 ==

== ENCOUNTER 2022-03-19 13:05 | Outpatient (REF) | payer OTHER, SELFPAY | END 2022-03-19 13:06 | disposition home or self-care (01) | LOC: HO.RESP 13:05 | PROVIDERS: PCP Nurse Practitioner Family; Visit Provider Internal Medicine | DX: Z13.89 Encounter for screening for other disorder (principal) ==

== ENCOUNTER 2022-07-02 10:22 | Outpatient (REF) | payer OTHER, SELFPAY ==
--- NOTE | ~2022-07-02 | XR_ITS ---
EXAMINATION: XR CHEST CLINICAL INFORMATION: Acute bronchitis COMPARISON: Chest radiograph 07/31/[address] chest 08/13/2021 TECHNIQUE: 2 views of the chest were obtained. FINDINGS: Again seen are hyperinflated lungs consistent with COPD. No other significant abnormality is noted involving the heart, lungs, mediastinum, bony thorax or soft tissues. XR/XR chest 2V IMPRESSION: COPD. No acute intrathoracic disease.
== END 2022-07-02 10:23 | disposition home or self-care (01) ==
LOC: HO.HMGCX 10:22
PROVIDERS: PCP Nurse Practitioner Family; Visit Provider Internal Medicine
DX: J20.9 Acute bronchitis, unspecified (principal)
CPT/HCPCS: 71046

== ENCOUNTER → 2022-09-15 13:47 | Outpatient (BNVA) | payer OTHER, SELFPAY | PROVIDERS: PCP Nurse Practitioner Family; Visit Provider Anesthesiology | DX: J44.9 Chronic obstructive pulmonary disease, unspecified (principal); Z87.891 Personal history of nicotine dependence | CPT/HCPCS: 94618; 99212 ==

== ENCOUNTER 2022-10-03 11:23 | Day surgery (SDC) | payer OTHER, SELFPAY ==
[2022-09-30 15:27] VITALS: BMI 21.2
--- NOTE | 2022-10-01 10:41 | HO.ANESPROP2 ---
Documented by User: Shahida Hightower NP 10/02/22 10:51 HPI - Anesthesia Eval Consult details Narrative: 77yo F for Spinal Cord Stimulation Trial Previously cancelled self d/t illness 07/2022. Pulmo eval 09/2022 - does not need supplemental O2 by 6 minute walk test, pending overnight oximetry, cough and congestion since restarting smoking Cardio eval 06/2021 - stable (notifed Juma at pain management that patient will need cardiac eval prior to implant) Xarelto for afib - ok'd to hold preop by cardiology [facility] Active Problems Active Problems: All Active Problems (Updated 09/30/22 @ 15:26 by Rachel Simpson, HAIDER) Precordial chest pain (Acute) Arm numbness (Acute) Lipid disorder (Acute) Environmental allergies (Acute) Hypertension, essential (Acute) Bronchitis (Acute) Compression fracture of lumbar spine, non-traumatic (Acute) Weight loss (Acute) Lack of appetite (Acute) Recurrent closed fracture of lumbar vertebra (Acute) Chronic back pain (Acute) Abdominal discomfort (Acute) Lumbar radiculitis (Acute) Recurrent fracture of lumbar vertebra (Acute) Neuropathy (Acute) Acute bronchitis (Acute) Pain management (Acute) Coronary artery disease (Acute) Right knee pain (Acute) Bilateral hip pain (Acute) Fibromyalgia (Acute) Lumbar spondylolysis (Acute) Lumbar degenerative disc disease (Acute) Lumbar radiculopathy (Acute) Major depression, recurrent (Acute) Anxiety, generalized (Acute) Physical exam (Acute) Urinary frequency (Acute) Leukocytosis (Acute) History of vertebral compression fracture (Acute) Chronic pain syndrome (Acute) Brain aneurysm (Acute) Atherosclerotic cardiovascular disease (Acute) Bilateral carotid artery stenosis (Acute) PAF (paroxysmal atrial fibrillation) (Acute ~04/2016) COPD (chronic obstructive pulmonary disease) (Acute) Personal history of nicotine dependence (Acute) Depression with anxiety (Acute) Past Medical History Medical History (Updated 09/30/22 @ 15:26 by Rachel Simpson, HAIDER) Atherosclerotic cardiovascular disease Basal cell carcinoma Bilateral carotid artery stenosis Brain aneurysm COPD (chronic obstructive pulmonary disease) Depression with anxiety History of COVID-19 (~06/2021) History of non-ST elevation myocardial infarction (NSTEMI) (~04/2016) Osteopenia (~2009) PAF (paroxysmal atrial fibrillation) (~04/2016) Personal history of nicotine dependence Family History Family History Father No problems noted. Mother No problems noted. Brother Stroke Surgical History Surgical History History of arthroscopic surgery of shoulder (~2009) History of bladder surgery History of carpal tunnel release History of inguinal hernia repair, bilateral (~2018) History of skin surgery History of thumb surgery History of total hysterectomy History of tubal ligation Social History Social History Housing: Other Housing Other:: mobile home Are you a primary child care lead teacher to a significant other at home: No Do you presently have visiting nurse or other home services: Yes ([facility]) Patient Tobacco Use Status: Current everyday Tobacco user Tobacco use type: Cigarette Cigarettes Per Day: 10 Years Smoked: 68 e-Cigarette/Vaping Use: Never Used Second Hand Smoke Exposure: Yes Use of substances other than those prescribed or required for medical reasons: Yes Have you been hit, kicked, punched, or otherwise hurt by someone within the past year? If so, by whom?: No Are you DNR?: No Advance Directives: Yes Advance Directives Information Provided: Yes Advance Directives on File: Yes Advance Directives Date on File: 12/20/18 Recently lost weight without trying: No Eating poorly because of decreased appetite: No Nutrition Risks: Surgical patient >75years Poor oral hygiene: No (upper & lower denture) Current occupational status: retired and disabled Cognitive needs: No Hearing needs: No Vision needs: No Meds Allergies Allergy/AdvReac Type Severity Reaction Status Date / Time Cephalosporins Allergy Unknown UNKNOWN Verified 09/15/22 15:52 [CEPHALOSPORINS] clonidine [CLONIDINE] Allergy Unknown UNKNOWN Verified 09/15/22 15:52 gabapentin [GABAPENTIN] Allergy Unknown UNKNOWN Verified 09/15/22 15:52 mirtazapine [From REMERON] Allergy Unknown UNKNOWN Verified 09/15/22 15:52 naproxen Allergy Unknown UNKNOWN Verified 09/15/22 15:52 tramadol Allergy Unknown UNKNOWN Verified 09/15/22 15:52 bupropion [From WELLBUTRIN] AdvReac Unknown Shaky Verified 09/15/22 15:52 Home Medications Medication Instructions Recorded Confirmed Last Taken Type clonazepam 0.5 mg tablet 0.5 mg PO TID PRN Anxiety 03/08/20 09/30/22 Unknown History trazodone 150 mg tablet 150 mg PO BEDTIME 03/08/20 09/30/22 Unknown History calcium carbonate 500 mg calcium 500 mg PO DAILY 05/15/22 09/30/22 Unknown History (1,250 mg) chewable tablet (Calcium 500) psyllium husk 0.52 gram capsule 0.52 g PO DAILY 05/15/22 09/30/22 Unknown History (Fiber (psyllium husk)) guaifenesin 400 mg tablet (Chest 400 mg PO QID 07/02/22 Unknown History Congestion Relief) nystatin 100,000 unit/mL oral 4 ml PO TID PRN 09/15/22 Unknown History suspension Exam Exam Date and Time: October 01, 2022 1041 Height,Weight and Vital Signs: Height 5 ft Weight 49.442 kg Pertinent Lab Results Pertinent Lab Results: Laboratory Tests 01/10/22 01/10/22 12:27 12:27 WBC 11.1 H Hgb 13.6 Hct 41.4 Plt Count 305 Sodium 142 Potassium 3.5 Chloride 106 Carbon Dioxide 25 BUN 13 D Creatinine 0.70 Narrative Narrative: From 06/2021 cardiology office visit: Coronary CT from 2018-moderate calcific plaque, most evident in the mid LAD where it is nearly circumferential with moderate luminal narrowing in the 50-69% range.? Moderate nearly circumferential calcific plaque in the mid RCA with about 50% stenosis.? Mild scattered narrowings elsewhere. Neck CTA with nonobstructive disease in both carotids.? However there was 0.25 cm saccular aneurysm noted.? There was microangiopathy. Assessment and Plan Assessment Anesthesia Assessment: Chart Reviewed Documented by User: Jc Posadas MD 10/03/22 13:33 [facility] Past Medical History Medical History (Updated 09/30/22 @ 15:26 by Rachel Simpson RN) Atherosclerotic cardiovascular disease Basal cell carcinoma Bilateral carotid artery stenosis Brain aneurysm COPD (chronic obstructive pulmonary disease) Depression with anxiety History of COVID-19 (~06/2021) History of non-ST elevation myocardial infarction (NSTEMI) (~04/2016) Osteopenia (~2009) PAF (paroxysmal atrial fibrillation) (~04/2016) Personal history of nicotine dependence Family History Family History Father No problems noted. Mother No problems noted. Brother Stroke Family history of problems with anesthesia: No Surgical History Surgical History History of arthroscopic surgery of shoulder (~2009) History of bladder surgery History of carpal tunnel release History of inguinal hernia repair, bilateral (~2018) History of skin surgery History of thumb surgery History of total hysterectomy History of tubal ligation History of Problems with Anesthesia: No Social History Social History Housing: Other Housing Other:: mobile home Are you a primary child care lead teacher to a significant other at home: No Do you presently have visiting nurse or other home services: Yes ([facility]) Patient Tobacco Use Status: Current everyday Tobacco user Tobacco use type: Cigarette Cigarettes Per Day: 10 Years Smoked: 68 e-Cigarette/Vaping Use: Never Used Second Hand Smoke Exposure: Yes Use of substances other than those prescribed or required for medical reasons: Yes Have you been hit, kicked, punched, or otherwise hurt by someone within the past year? If so, by whom?: No Are you DNR?: No Advance Directives: Yes Advance Directives Information Provided: Yes Advance Directives on File: Yes Advance Directives Date on File: 12/20/18 Recently lost weight without trying: No Eating poorly because of decreased appetite: No Nutrition Risks: Surgical patient >75years Poor oral hygiene: No (upper & lower denture) Current occupational status: retired and disabled Cognitive needs: No Hearing needs: No Vision needs: No Meds Allergies Allergy/AdvReac Type Severity Reaction Status Date / Time Cephalosporins Allergy Unknown UNKNOWN Verified 09/15/22 15:52 [CEPHALOSPORINS] clonidine [CLONIDINE] Allergy Unknown UNKNOWN Verified 09/15/22 15:52 gabapentin [GABAPENTIN] Allergy Unknown UNKNOWN Verified 09/15/22 15:52 mirtazapine [From REMERON] Allergy Unknown UNKNOWN Verified 09/15/22 15:52 naproxen Allergy Unknown UNKNOWN Verified 09/15/22 15:52 tramadol Allergy Unknown UNKNOWN Verified 09/15/22 15:52 bupropion [From WELLBUTRIN] AdvReac Unknown Shaky Verified 09/15/22 15:52 Home Medications Medication Instructions Recorded Confirmed Last Taken Type clonazepam 0.5 mg tablet 0.5 mg PO TID PRN Anxiety 03/08/20 09/30/22 Unknown History trazodone 150 mg tablet 150 mg PO BEDTIME 03/08/20 09/30/22 Unknown History calcium carbonate 500 mg calcium 500 mg PO DAILY 05/15/22 09/30/22 Unknown History (1,250 mg) chewable tablet (Calcium 500) psyllium husk 0.52 gram capsule 0.52 g PO DAILY 05/15/22 09/30/22 Unknown History (Fiber (psyllium husk)) guaifenesin 400 mg tablet (Chest 400 mg PO QID 07/02/22 Unknown History Congestion Relief) nystatin 100,000 unit/mL oral 4 ml PO TID PRN 09/15/22 Unknown History suspension Exam Airway Mallampati Class: II TM Dist: >3cm Neck ROM: Limited Heart: rrr Lungs: decreased bs bilat Assessment and Plan Assessment Anesthesia Assessment: Anesthesia Plan Discussed Final Anesthetic Review Family History of Problems with Anesthesia: No History of Problems with Anesthesia: No NPO: Yes ASA Class: IV Final Preanesthetic Review: No Changes in Pt Med Stat, Meds/Allgs Chart Reviewed, Consent Obtained/Reviewed and Anes Risks/Benef Reviewed Patient Risk: High Procedure Risk: Intermediate Anesthetic Plan Anesthetic Plan: MAC: and Agree w/ Assess. and Plan Disposition: Standard PACU
--- NOTE | ~2022-10-03 | FL_ITS ---
EXAMINATION: FL FLUOROSCOPY GUIDANCE IN OR CLINICAL INFORMATION: Spinal cord sterilization trial. COMPARISON: Fluoroscopy for pain management 12/10/2021 TECHNIQUE: Fluoroscopy Supervised By: Dr. Shmuel Mena. Fluoroscopy Time: 2.5 minutes. Cumulative Dose: 38.9 mGy. DAP: 4.83 Gy-cm2. Images: 6. FINDINGS: There are posterior epidural electrodes overlying from T8 to T11 vertebra for pain management. There is mild degenerative disc changes T12-L1 disc level with spondylosis. No lytic or sclerotic process seen. FL/FL guidance in OR IMPRESSION: Fluoroscopy guidance was provided for pain management to the referring physician. No radiologist was present.
[2022-10-03 12:14] VITALS: BP 106/67; PULSE 91; RESP 16; TEMP 36.8; O2SAT 95
--- NOTE | 2022-10-03 12:24 | PC.NURSE ---
MD BRITT AWARE OF PATIENTS TWO FALLS WITH IN THE LAST 1-1/2 WEEKS. FIRST FALL TRIPPED AND FELL HITTING LEFT POSTERIOR HEAD. NO LOC. NO N/V. NO HEMATOMA NOTED. LUMP NOTED. SECOND FALL WITH TRIMMING BUSHES IN THE YARD AND FELL HITTING THE FROM LEFT SIDE OF HER FOREHEAD. NO LOC. NO HEMATOMA NOTED. SHE FELL ON THURSDAY. STOPPED HER XARELTO ON THURSDAY. NO HEMATOMAS NOTED. NO BRUISING. NEUROS INTACT. CLEAR SPEECH. 2MM REACTIVE PUPILS. SYMM SMILE. EQUAL HAND GRASPS.
[2022-10-03] MEDS: Lactated Ringers 1,000 ML 50 ML IVCONT (12:35)
--- NOTE | 2022-10-03 14:22 | MHC.SHP ---
Pre-Procedural Eval Section A Date of Service: 10/03/22 The patient is an INPATIENT: No Changes since office visit: Yes Patient answered all questions The History & Physical has been completed within 30 days and I have reviewed it.: No Section B Chief Complaint: Other intervertebral disc degeneration, lumbar reg Details of Present Illness: As above Relevant Family History (Specify if Yes): No Relevant Social History: None Present Medications: see Short Stay Collaborative assessment Medical History: No relevant PMH History of Previous Operations: Relevant previous surgery/procedure and date(s) Allergies: Allergies Allergy/AdvReac Type Severity Reaction Status Date / Time Cephalosporins Allergy Unknown UNKNOWN Verified 09/15/22 15:52 [CEPHALOSPORINS] clonidine [CLONIDINE] Allergy Unknown UNKNOWN Verified 09/15/22 15:52 gabapentin [GABAPENTIN] Allergy Unknown UNKNOWN Verified 09/15/22 15:52 mirtazapine [From REMERON] Allergy Unknown UNKNOWN Verified 09/15/22 15:52 naproxen Allergy Unknown UNKNOWN Verified 09/15/22 15:52 tramadol Allergy Unknown UNKNOWN Verified 09/15/22 15:52 bupropion [From WELLBUTRIN] AdvReac Unknown Shaky Verified 09/15/22 15:52 Review of Systems Sugical H&P ROS: Negative: Constitution, Neurological, Psychiatric, Hem-Onc, Allergic/Immunologic, Gastrointestinal, Genitourinary, Integumentary, Endocrine and Eyes/Ears/Nose/Throat and Yes, Specify: Cardiovascular (carotid stenosis), Respiratory (COPD, current smoker) and Musculoskeletal (h/o vertebral compression f-xs) Exam Surgical H&P Exam: Normal: HEENT, Normal: Heart, Normal: Lungs, Normal: Extremities, Normal: Abdomen, Normal: Skin and Normal: Neurological Plan Diagnosis/Plan: Unchanged I have reviewed the history and physical and performed a pertinent physical examination on my patient. No changes have occurred unless specified. Time Spent With Patient Time: Total time managing care of this patient today _5___ minutes.
[2022-10-03 16:00] VITALS: BP 98/50; PULSE 69; RESP 16; TEMP 36.8; O2SAT 94
[2022-10-03 16:15] VITALS: BP 104/41; PULSE 69; RESP 16; TEMP 36.7; O2SAT 94
--- NOTE | 2022-10-03 16:18 | PM.OP ---
Brief Operative Note Date of Service: 10/03/22 Pre-op diagnosis: SPONDYLOSIS LUMBAR SPINE WITH RADICULOPATHY Post-op diagnosis: same Procedure: TRIAL of NEVRO SCS Implants: none permanent Surgeon: Shmuel Mena MD Anesthesia: MAC Was an Recreational Vehicle Resort Manager used for this Procedure?: No Estimated blood loss (mL): 0 Pathology: none sent Condition: stable Disposition: PACU
--- NOTE | 2022-10-03 16:19 | W.PM.OPN ---
Operative Note Operative Note Date of Service: 10/03/22 Narrative: trial of Nevro spinal cord stimulator. Tova is very pleasant 77 years old female? who is here for the trial of spinal cord stimulator Nevro for the treatment of Spondylosis of lumbar spine with radiculopathy and pain related to multiple old compression fracture of the lumbar spine vertebra is.. Preoperatively patient received?? clindamycin 300 mg IV intravenously approximately 30 minute before the procedure.? After obtaining informed consent patient was brought to the operating room, she was positioned?? Prone on the operating table, [place] [employer] monitors were applied and patient was? sedated. ? Time-out was performed delineating correct site, side, the nature of the procedure, patient's allergy, preoperative antibiotic if needed.? All operating room staff was participating in OR time-out procedure. Patient's entire back was prepped with ChloraPrep twice and draped with full body fenestrated drape.? Sterilely draped C-arm was brought over operating field and sqare picture of T11-T12, L1, L2 vertebrae as were demonstrated on the screen.?The decision was made to concentrate the attention on T12- L1 interlaminar space.? The location of the projection of the right pedicle center of the _L2 vertebra was found on the skin using C-arm.? This location was injected with mixture of lidocaine 2% and ropivacaine 0.5% 5 cc.? After that 11 blade was used to make a bettie on the skin.? 10 cm 14 gauge introducer epidural needle was inserted through the bettie and advanced to? T12-L1 epidural interspace.? The advancement of the needle was performed on anterior posterior and lateral views.?ADRIANNE to air was used to detect epidural space. ? . the needle was advancing to were the [id number] interspace on anterior posterior and lateral views.Guitar wire and loss of resistance technique were used to locate epidural space.? When guitar wire was spread in the epidural fashion, epidural lead was inserted through the needle and it was advanced to top T8 position PRACTICALLY at THE MIDLINE in the posterior epidural space.? After that location of the projection of the LEFT pedicle center of the? L2 vertebra was found on the skin using C-arm.? This location was injected with mixture of lidocaine 2% and ropivacaine 0.5% 5 cc.? After that 11 blade was used to make a bettie on the skin.? 10 cm 14 gauge? introducer epidural needle was inserted through the bettie and advanced to T12-L1 epidural interspace.? The advancement of the needle was done on AP and lateral views, ADRIANNE to air was used to detect epidural space, guitar wire was advanced to the needle and was spreading in epidural fashion and after that epidural stimulation lead was inserted through the needle and was advancing to the posterior epidural space to the level of T9 upper third of the vertebra with the position slightly left to midline? right inserted wire. The position of the leads verified on anterior posterior and lateral views,The stilets and epidural needle were withdrawn and care was taken not to dislodge the epidural leads. The anchoring devices were dislodged on the leads and advanced to the level of the skin.? The anchoring device was sutured with two 0-0 silk sutures for each anchor? to the skin of the patient.? The screws were tighten on the anchoring devices until 3 clicks were heard. The leads were connected to testing device.? Bacitracin ointment was applied to the entrance point of the needle entrance on the right.? Sterile dressing applied.? The lead was connected to stimulating device which was taped to the skin. The impedance was checked and it was appropriate. The patient tolerated procedure well.? she was taken outside of the operating room to recovery room where she recovered uneventfully.
[2022-10-03 16:30] VITALS: BP 107/52; PULSE 74; RESP 16; O2SAT 92
== END 2022-10-03 16:54 | disposition home or self-care (01) ==
PROVIDERS: PCP Nurse Practitioner Family; Visit Provider Anesthesiology
PROC: (CPT 63650; principal; 2022-10-03 13:00)
DX: M51.36 Other intervertebral disc degeneration, lumbar region (principal); M47.26 Other spondylosis with radiculopathy, lumbar region; G89.4 Chronic pain syndrome; M54.9 Dorsalgia, unspecified; R53.83 Other fatigue; M79.7 Fibromyalgia; M85.80 Other specified disorders of bone density and structure, unspecified site; Z87.81 Personal history of (healed) traumatic fracture; I25.10 Atherosclerotic heart disease of native coronary artery without angina pectoris; I48.0 Paroxysmal atrial fibrillation; I25.2 Old myocardial infarction; J44.9 Chronic obstructive pulmonary disease, unspecified; R63.4 Abnormal weight loss; Z68.21 Body mass index [BMI] 21.0-21.9, adult; F41.8 Other specified anxiety disorders; Z88.8 Allergy status to other drugs, medicaments and biological substances; Z99.89 Dependence on other enabling machines and devices; F17.210 Nicotine dependence, cigarettes, uncomplicated; Z86.16 Personal history of COVID-19
CPT/HCPCS: 63650 ×2; C1713; C1897; J2795

== ENCOUNTER 2022-10-09 09:49 | Outpatient (REF) | payer OTHER, SELFPAY ==
--- NOTE | ~2022-10-09 | XR_ITS ---
EXAMINATION: XR HIP, LEFT CLINICAL INFORMATION: Unilateral primary osteoarthritis. COMPARISON: None available. TECHNIQUE: Two views of the left hip. FINDINGS: Mild decrease in the left hip joint space is seen. No bony erosive changes, fracture or dislocation. Mild periarticular spurring is seen lateral hip joint The soft tissues are normal. XR/XR hip LT min 2V IMPRESSION: Mild degenerative changes left hip. No visible acute fracture or dislocation.
== END 2022-10-09 09:50 | disposition home or self-care (01) ==
LOC: HO.XRAY 09:49
PROVIDERS: PCP Nurse Practitioner Family; Visit Provider Anesthesiology
DX: M16.12 Unilateral primary osteoarthritis, left hip (principal); M79.7 Fibromyalgia; M51.36 Other intervertebral disc degeneration, lumbar region; M54.9 Dorsalgia, unspecified; Z87.81 Personal history of (healed) traumatic fracture
CPT/HCPCS: 73502; 99212

== ENCOUNTER 2022-12-12 14:43 | Outpatient (REF) | payer OTHER, SELFPAY ==
[2022-12-21 05:28] LABS: Methylmalonic Acid 129 nmol/L (87-318)
== END 2022-12-12 14:44 | disposition home or self-care (01) ==
LOC: HO.HMGCLDS 14:43
PROVIDERS: PCP Nurse Practitioner Family; Visit Provider Nurse Practitioner Family
DX: R41.3 Other amnesia (principal)
CPT/HCPCS: 36415; 82607; 82746; 83921

== ENCOUNTER 2023-01-13 11:07 | Outpatient (REF) | payer OTHER, SELFPAY ==
[2023-01-13 13:50] LABS: Appearance Urine Clear; Color Urine Yellow; Glucose Urine UA Negative (Negative); Leukocyte Esterase Urine Trace (Negative); Nitrite Urine Negative (Negative); Specific Gravity - Urine 1.015 (1.005-1.025); UMIC TRIGGER UACC YES; Urine Blood Trace (Negative); Urine Ketones Negative (Negative); Urine Protein Negative (Neg-Trace)
[2023-01-13 13:55] LABS: Bacteria Urine None Seen (None Seen); Hyaline Casts Urine 0-2 /LPF (0-2); Squamous Epithelial Cell Urine 0-2 /HPF (0-2); WBC Urine 0-5 /HPF (0-5)
== END 2023-01-13 11:08 | disposition home or self-care (01) ==
LOC: HO.HMGCLDS 11:07
PROVIDERS: PCP Nurse Practitioner Family; Visit Provider Nurse Practitioner Family
DX: I25.10 Atherosclerotic heart disease of native coronary artery without angina pectoris (principal); E78.9 Disorder of lipoprotein metabolism, unspecified
CPT/HCPCS: 81001

== ENCOUNTER 2023-01-13 12:44 | Outpatient (AMB) | payer OTHER, SELFPAY ==
--- NOTE | 2023-01-13 13:20 | MHC.OFFWIV ---
Intake Vital Signs 01/13/23 13:21 Height 5 ft Weight 50.802 kg BMI 21.9 BP 120/72 Blood Pressure Location Lt brachial Position Sitting Pulse 91 Pulse Source Pulse Oximeter Temp 96.7 F L Temp Source Temporal Artery Scan Pulse Oximetry (%) 95 Oxygen Delivery Method Room Air Intake Visit Reasons: EP ?Center EYE (both) Intake Note: Pt is here c/o bilateral pink eye for the last few weeks. Patient Tobacco Use Status: Current everyday Tobacco user Allergies Cephalosporins [CEPHALOSPORINS] Allergy (Unknown, Verified 01/13/23 13:21) UNKNOWN clonidine [CLONIDINE] Allergy (Unknown, Verified 01/13/23 13:21) UNKNOWN gabapentin [GABAPENTIN] Allergy (Unknown, Verified 01/13/23 13:21) UNKNOWN mirtazapine [From REMERON] Allergy (Unknown, Verified 01/13/23 13:21) UNKNOWN naproxen Allergy (Unknown, Verified 01/13/23 13:21) UNKNOWN tramadol Allergy (Unknown, Verified 01/13/23 13:21) UNKNOWN bupropion [From WELLBUTRIN] Adverse Reaction (Unknown, Verified 01/13/23 13:21) Shaky Do you need a note to return to daycare/school/sports/work: No HPI HPI Comments History of Present Illness Details 77-year-old female presents for recurrent conjunctivitis. She states that ever since she got her cataracts removed that she gets conjunctivitis son a regular basis. She states that the erythromycin eye ointment does not work for her because she cannot see after she uses it. She has been using old eyedrops from her cataract surgery to help alleviate her symptoms. Her 2nd concern is dysuria. She did provide a urine sample this morning, and states that she has had the symptoms for a few days now. She does not report any fevers or chills, denies abdominal pain, nausea, vomiting, or weakness. [facility] Medical History Atherosclerotic cardiovascular disease Basal cell carcinoma Bilateral carotid artery stenosis Brain aneurysm COPD (chronic obstructive pulmonary disease) Depression with anxiety History of COVID-19 (~06/2021) History of non-ST elevation myocardial infarction (NSTEMI) (~04/2016) Osteopenia (~2009) PAF (paroxysmal atrial fibrillation) (~04/2016) Personal history of nicotine dependence Surgical History History of arthroscopic surgery of shoulder (~2009) History of bladder surgery History of carpal tunnel release History of inguinal hernia repair, bilateral (~2018) History of skin surgery History of thumb surgery History of total hysterectomy History of tubal ligation Family History Father No problems noted. Mother No problems noted. Brother Stroke Social History Housing: Other Housing Other:: mobile home Are you a primary acute care certified nursing assistant to a significant other at home: No Do you presently have visiting nurse or other home services: Yes ([facility]) Patient Tobacco Use Status: Current everyday Tobacco user Tobacco use type: Cigarette Cigarettes Per Day: 10 Years Smoked: 68 e-Cigarette/Vaping Use: Never Used Second Hand Smoke Exposure: Yes Advance Directives Date on File: 12/20/18 Current occupational status: retired and disabled Cognitive needs: No Hearing needs: No Vision needs: No Review of Systems Const Details: Constitutional: No Fever, No Chills ENT/Mouth: No Ear Pain, No Hoarseness, No sore throat Eyes: Positive bilateral Eye irritation and redness, No Swelling, No Foreign Body Cardiovascular: No Chest Pain, No SOB Respiratory: No Cough, No Dyspnea Gastrointestinal: No Nausea, No Vomiting, No Diarrhea, No abdominal Pain Genitourinary: Positive Dysuria, No Hematuria Musculoskeletal: No joint pain, No Myalgias, No Joint Swelling Skin: No Skin lacerations, No rash Neuro: No Weakness, No Numbness, No Paresthesias, No Dizziness, No Headache All systems reviewed & are unremarkable except as noted in HPI and below Physical Exam Vital Signs: Last Vital Signs Temp 96.7 F L 01/13/23 13:21 Pulse 91 01/13/23 13:21 BP 120/72 01/13/23 13:21 Pulse Ox 95 01/13/23 13:21 Oxygen Delivery Method Room Air 01/13/23 13:21 BMI result Body Mass Index 21.9 Appearance: Alert. Oriented X3. No acute distress. Eyes: Pupils equal, round and reactive to light. Sclera nonicteric. Bilateral conjunctivitis, clear drainage noted. ENT: Pharynx normal. No vertebral tenderness or step-offs. No nuchal rigidity. No mastoid tenderness. Neck: Normal inspection. Neck supple. CVS: Normal heart rate and rhythm. Pulses normal. Respiratory: No respiratory distress. Breath sounds normal. Skin: Skin warm and dry. Normal skin color. Normal skin turgor. Extremities: No lower extremity edema. Gait is well balanced well coordinated. Neuro: No motor deficit. No sensory deficit. Cranial nerves 2-12 intact. Assessment & Plan Assessment & Plan (1) Conjunctivitis, acute, bilateral: Code(s): H10.33 - Unspecified acute conjunctivitis, bilateral (2) UTI (urinary tract infection): Code(s): N39.0 - Urinary tract infection, site not specified Qualifiers: Urinary tract infection type: site unspecified Hematuria presence: with hematuria Qualified Code(s): N39.0 - Urinary tract infection, site not specified; R31.9 - Hematuria, unspecified Plan 77-year-old female presents with bilateral conjunctivitis. She has had recurrent conjunctivitis over the past few months and was given both erythromycin and polymyxin, states that the erythromycin is intolerable because she cannot see after she uses it. She has been using her old eye drops that were given to her for her cataract surgery. She states that those drops are not helpful. She does not report any risk of foreign body, does not wear contact lenses, and does not report changes in vision. Her conjunctivae are erythematous with clear drainage. Patient is adamant that she requires eyedrops to help alleviate this symptom. I did discuss antibiotic stewardship, however she is not interested in this conversation and is demanding these drops. Patient's request was respected. Patient's 2nd concern was dysuria, which she mentioned as she was walking out the door. Patient did provide a urine sample earlier today, which is indicative of urinary tract infection. Patient does not report any abdominal flank pain. Denies nausea and vomiting. When asked about her allergy symptoms to cephalosporins, patient states that does not what her reaction is and stated that she is not allergic to any medication. Will treat with cefuroxime 500 mg twice a day for the next 7 days. Patient does understand that she must drink plenty of fluids. Supportive measures with Tylenol and Motrin. Patient verbalized understanding of discharge instructions. Verbalized understandings of signs and symptoms indicating need for emergent intervention. Medications: New cefuroxime axetil 500 mg PO Q12H 5 days 10 tabs 0RF neomycin-polymyxin B-dexameth 3.5mg/mL-10,000 unit/mL-0.1 % Apply 1 drop to each eye every 12 hours for the next 7 days. 1 drp ophthalmic (eye) Q12H 5 mL 0RF Patient Instructions: You were evaluated for multiple concerns. Her 1st concern was bilateral conjunctivitis. Please use polymyxin drops as directed to each eye. Wash her hands before and after applying the ointment. 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 For your urinary tract infection please take cefuroxime. Take cefuroxime 500 mg every 12 hours for the next 7 days. Drink plenty of fluids. Alternate Tylenol 650 mg every 6 hours and Motrin 600 mg every 6 hours as needed for pain and fever management. Consider taking these medications 3 hours apart so you have pain and fever management every 3 hours. Write down what time you take these medications to prevent accidental overdose. Motrin is the same medication as Advil and ibuprofen. Tylenol is the same medication as acetaminophen. Thank you for choosing this urgent care for evaluation. Please follow-up with primary care physician as needed. Return to the emergency department for any new, concerning, or worsening symptoms. Coding Level of Care Code Est Pt Level 3 (44375) Diagnoses Conjunctivitis, acute, bilateral H10.33 UTI (urinary tract infection) N39.0; R31.9 Urinary tract infection type: site unspecified Hematuria presence: with hematuria
[2023-01-13 13:21] VITALS: BP 120/72; PULSE 91; TEMP 35.9; O2SAT 95; BMI 21.9
== END 2023-01-13 16:20 | disposition home or self-care (01) ==
PROVIDERS: PCP Nurse Practitioner Family; Visit Provider Nurse Practitioner Family
DX: H10.33 Unspecified acute conjunctivitis, bilateral (principal); N39.0 Urinary tract infection, site not specified; R31.9 Hematuria, unspecified
CPT/HCPCS: 99213

== ENCOUNTER 2023-02-19 13:01 | Outpatient (AMB) | payer OTHER, SELFPAY ==
--- NOTE | 2023-02-19 13:02 | A.OFFPC_ITS ---
Vital Signs 02/19/23 13:04 Height 5 ft Weight 110 lb BMI 21.5 BP 108/80 Blood Pressure Location Lt brachial Position Sitting Pulse 90 Pulse Source Pulse Oximeter Pulse Oximetry (%) 97 Oxygen Delivery Method Room Air Intake Visit Reasons: Eye drainage Allergies Cephalosporins [CEPHALOSPORINS] Allergy (Unknown, Verified 02/19/23 17:20) UNKNOWN clonidine [CLONIDINE] Allergy (Unknown, Verified 02/19/23 17:20) UNKNOWN gabapentin [GABAPENTIN] Allergy (Unknown, Verified 02/19/23 17:20) UNKNOWN mirtazapine [From REMERON] Allergy (Unknown, Verified 02/19/23 17:20) UNKNOWN naproxen Allergy (Unknown, Verified 02/19/23 17:20) UNKNOWN tramadol Allergy (Unknown, Verified 02/19/23 17:20) UNKNOWN bupropion [From WELLBUTRIN] Adverse Reaction (Unknown, Verified 02/19/23 17:20) [place] Medication List - Last Reconciled 02/19/[address] [facility]- albuterol sulfate 90 mcg/actuation 2 puffs PO Q6H PRN 30 days albuterol sulfate 2.5 mg (3 mL) inhalation TID atorvastatin 40 mg PO DAILY calcium carbonate (Calcium 500) 500 mg PO DAILY cefuroxime axetil 500 mg PO Q12H 5 days cetirizine 5 mg (1/2 x 10 mg) PO DAILY PRN 90 days cholecalciferol (vitamin D3) 50 mcg PO ONCE 90 days clonazepam 0.5 mg PO TID PRN diltiazem HCl ER (Tiadylt ER) 120 mg PO DAILY [[facility] Attn: Angela Bowman FAX [phone] tel [phone] ext [phone]] fluticasone propionate 110 mcg/actuation (Flovent HFA) 1 puff inhalation BID lidocaine 5% 1 appl topical BEDTIME PRN 30 days memantine (Namenda) 5 mg PO QAM neomycin-polymyxin B-dexameth 3.5mg/mL-10,000 unit/mL-0.1 % 1 drp ophthalmic (eye) Q12H ofloxacin 0.3% 2 drps ophthalmic (eye) QID pregabalin 50 mg PO BID 30 days rivaroxaban (Xarelto) 20 mg PO DAILY 90 days trazodone 150 mg PO BEDTIME Tobacco use date assessed: 11/13/22 Fall risk assessment: No Falls in past year Last assessed Fall Risk: 02/19/23 Dental Screening Dental Screen Date: 02/19/23 Was dental information given to patient?: Patient declined HPI Eye drainage HPI Details Pt reports erythema and drainage of her bilat eyes, left>right. She has been seen in the walk-in multiple times and was treated for conjunctivitis. Pt reports that her symptoms tend to decrease, but then return. She wakes up with dryness and crust of her eyes. This has been ongoing since October. Will refer to ophthalmology. Will also send ofloxacin drops. Denies fever, chills, and dizziness. [facility] Medical History Atherosclerotic cardiovascular disease Basal cell carcinoma Bilateral carotid artery stenosis Brain aneurysm COPD (chronic obstructive pulmonary disease) Depression with anxiety History of COVID-19 (~06/2021) History of non-ST elevation myocardial infarction (NSTEMI) (~04/2016) Osteopenia (~2009) PAF (paroxysmal atrial fibrillation) (~04/2016) Personal history of nicotine dependence Surgical History History of inguinal hernia repair, bilateral (~2018) History of skin surgery History of arthroscopic surgery of shoulder (~2009) History of carpal tunnel release History of bladder surgery History of thumb surgery History of tubal ligation History of total hysterectomy Family History Father No problems noted. Mother No problems noted. Brother Stroke Social History Housing: Other Housing Other:: mobile home Are you a primary career counselor to a significant other at home: No Do you presently have visiting nurse or other home services: Yes ([facility]) Patient Tobacco Use Status: Current everyday Tobacco user Tobacco use type: Cigarette Cigarettes Per Day: 10 Years Smoked: 68 e-Cigarette/Vaping Use: Never Used Second Hand Smoke Exposure: Yes Advance Directives Date on File: 12/20/18 Current occupational status: retired and disabled Cognitive needs: No Hearing needs: No Vision needs: No Questionnaire Thrive Questionnaire Date Thrive assessed: 01/08/22 ARPITA-7 AMB Questionnaire ARPITA-7 Date ARPITA - 7 assessed: 01/08/22 Source: Developed by Drs. Celso Chauhan, Naila Wilkins, Isael French and colleagues, with an educational edmundo from [employer]. Review of Systems Const Reports as per HPI Physical exam (Primary Care) Vital Signs: Last Vital Signs Pulse 90 02/19/23 13:04 BP 108/80 02/19/23 13:04 Pulse Ox 97 02/19/23 13:04 Oxygen Delivery Method Room Air 02/19/23 13:04 BMI result Body Mass Index 21.5 Tobacco/Smoking Status: Tobacco use Status Tobacco use date assessed 11/13/22 02/19/23 13:07 Patient Tobacco Use Status Current everyday Tobacco 02/19/23 13:07 Tobacco use type Cigarette 02/19/23 13:07 e-Cigarette/Vaping Use Never Used 02/19/23 13:07 Thrive Assessment: Date of Thrive Assessment Date Thrive assessed 01/08/22 02/19/23 13:07 Const General: cooperative Orientation/consciousness: patient oriented x3 Eyes Other: bilat scleras erythematous, left>right, clear drainage to bilat eyes, left>right Resp Effort & Inspection: normal respiratory effort Auscultation: clear to auscultation bilaterally Cardio Rate: regular rate Rhythm: regular rhythm Heart sounds: S1 normal heart sound present, S2 normal heart sound present and Murmur heart sound present systolic Neuro General: patient oriented x3 Psych Appearance: grossly normal Mental Status: mental status grossly normal Speech and movement: Normal speech and movement present Affect: normal affect Attitude: cooperative Thought process: Normal thought process present Thought content: Normal thought content present Insight: Good insight present (Psych) Judgement: Good judgement present (Psych) Assessment and Plan Assessment & Plan (1) Redness of eye, left: Code(s): H57.89 - Other specified disorders of eye and adnexa Plan: Referred to ophthalmology (2) Eye drainage: Code(s): H57.89 - Other specified disorders of eye and adnexa Plan: Referred to ophthalmology Plan The patient agreed to the use of a medical lab tech instructor for this encounter. Scribed for MAYA Yeung by Tiana Millan medical lab tech instructor, on 02/19/2023 at 13:20 EST. Orders: Referrals Ophthalmology Referral H57.89 - Other specified disorders of eye and adnexa Medications: New ofloxacin 0.3% 2 drps ophthalmic (eye) QID 10 mL 0RF Coding Level of Care Code Est Pt Level 3 (38993) Diagnoses Redness of eye, left H57.89 Eye drainage H57.89
[2023-02-19 13:04] VITALS: BP 108/80; PULSE 90; O2SAT 97; BMI 21.5
== END 2023-02-19 14:25 | disposition home or self-care (01) ==
PROVIDERS: PCP Nurse Practitioner Family; Visit Provider Nurse Practitioner Family
DX: H57.89 Other specified disorders of eye and adnexa (principal)
CPT/HCPCS: 99213

== ENCOUNTER → 2023-02-23 16:10 | Outpatient (BNVA) | payer OTHER, SELFPAY | PROVIDERS: PCP Nurse Practitioner Family; Referring Provider Nurse Practitioner Family; Visit Provider Nurse Practitioner Family | DX: Z01.810 Encounter for preprocedural cardiovascular examination (principal); I25.10 Atherosclerotic heart disease of native coronary artery without angina pectoris; I48.0 Paroxysmal atrial fibrillation; I65.23 Occlusion and stenosis of bilateral carotid arteries; I10 Essential (primary) hypertension | CPT/HCPCS: 93005; 99212 ==

== ENCOUNTER 2023-02-23 16:11 | Outpatient (AMB) | payer OTHER, SELFPAY ==
--- NOTE | 2023-02-23 16:11 | MHC.OFFVIS ---
Intake Vital Signs 02/23/23 16:12 Height 5 ft Weight 110 lb BMI 21.5 BP 120/74 Blood Pressure Location Lt brachial Position Sitting Pulse 88 Intake Visit Reasons: pre op Intake Note: pre-op Quality Process Engineer Required: No Allergies Cephalosporins [CEPHALOSPORINS] Allergy (Unknown, Verified 02/23/23 16:15) UNKNOWN clonidine [CLONIDINE] Allergy (Unknown, Verified 02/23/23 16:15) UNKNOWN gabapentin [GABAPENTIN] Allergy (Unknown, Verified 02/23/23 16:15) UNKNOWN mirtazapine [From REMERON] Allergy (Unknown, Verified 02/23/23 16:15) UNKNOWN naproxen Allergy (Unknown, Verified 02/23/23 16:15) UNKNOWN tramadol Allergy (Unknown, Verified 02/23/23 16:15) UNKNOWN bupropion [From WELLBUTRIN] Adverse Reaction (Unknown, Verified 02/23/23 16:15) Shaky Medication List - Last Reconciled 02/23/23 by NATALIE CharlesC albuterol sulfate 90 mcg/actuation 2 puffs PO Q6H PRN 30 days albuterol sulfate 2.5 mg (3 mL) inhalation TID atorvastatin 40 mg PO DAILY calcium carbonate (Calcium 500) 500 mg PO DAILY cefuroxime axetil 500 mg PO Q12H 5 days cetirizine 5 mg (1/2 x 10 mg) PO DAILY PRN 90 days cholecalciferol (vitamin D3) 50 mcg PO ONCE 90 days clonazepam 0.5 mg PO TID PRN diltiazem HCl ER (Tiadylt ER) 120 mg PO DAILY [[facility] [employer] Attn: Angela Bowman FAX [phone] tel [phone] ext [phone]] fluticasone propionate 110 mcg/actuation (Flovent HFA) 1 puff inhalation BID lidocaine 5% 1 appl topical BEDTIME PRN 30 days memantine (Namenda) 5 mg PO QAM neomycin-polymyxin B-dexameth 3.5mg/mL-10,000 unit/mL-0.1 % 1 drp ophthalmic (eye) Q12H ofloxacin 0.3% 2 drps ophthalmic (eye) QID pregabalin 50 mg PO BID 30 days rivaroxaban (Xarelto) 20 mg PO DAILY 90 days trazodone 150 mg PO BEDTIME HPI pre op HPI Details Tova is a 78-year-old female past medical history of smoking, hypertension, hyperlipidemia, carotid stenosis, coronary artery disease, paroxysmal atrial fibrillation who presents for follow-up and preop cardiac evaluation. Her last prior visit to our office was 06/26/2021. Today she reports she has been doing generally well over the last year and half. She has been experiencing some chronic back pain and will be undergoing a spinal stimulator placement this Thursday. She had the trial stimulator placed and it gave her full relief of her discomfort. She has not been having any concerning chest discomfort. She has COPD and has some shortness of breath with activity. She denies PND, orthopnea or edema. She denies heart palpitations, dizziness, presyncope, syncope, falls. She ambulates steadily with a cane. She reports good activity tolerance and is able to climb the for stairs getting into her home. She is taking her medications as directed. She has placed her Xarelto on hold today for her procedure. No bleeding issues reported. [facility] Medical History Atherosclerotic cardiovascular disease Basal cell carcinoma Bilateral carotid artery stenosis Brain aneurysm COPD (chronic obstructive pulmonary disease) Depression with anxiety History of COVID-19 (~06/2021) History of non-ST elevation myocardial infarction (NSTEMI) (~04/2016) Osteopenia (~2009) PAF (paroxysmal atrial fibrillation) (~04/2016) Personal history of nicotine dependence Surgical History History of inguinal hernia repair, bilateral (~2018) History of skin surgery History of arthroscopic surgery of shoulder (~2009) History of carpal tunnel release History of bladder surgery History of thumb surgery History of tubal ligation History of total hysterectomy Family History Father No problems noted. Mother No problems noted. Brother Stroke Social History Housing: Other Housing Other:: mobile home Are you a primary patient centered care specialist to a significant other at home: No Do you presently have visiting nurse or other home services: Yes ([facility]) Patient Tobacco Use Status: Current everyday Tobacco user Tobacco use type: Cigarette Cigarettes Per Day: 10 Years Smoked: 68 e-Cigarette/Vaping Use: Never Used Second Hand Smoke Exposure: Yes Advance Directives Date on File: 12/20/18 Current occupational status: retired and disabled Cognitive needs: No Hearing needs: No Vision needs: No Review of Systems Const All systems reviewed & are unremarkable except as noted in HPI and below ENT Reports dizziness Card Denies chest pain, Denies chest pain at rest, Denies chest pain with activity, Denies rapid heart rate, Denies pedal edema, Denies edema, Denies leg edema, Denies lightheadedness, Denies palpitations, Denies dyspnea, Denies dyspnea on exertion and Denies orthopnea Resp Denies cough, Denies dyspnea and Denies dyspnea on exertion GI Denies hematochezia and Denies change in stool character Musc Details: uses cane Reports abnormal gait, Reports limited range of motion, Denies muscle cramps, Denies muscle weakness, Denies numbness, Denies radiating pain into limb, Denies stiffness and Denies tingling Neuro Reports abnormal gait, Reports dizziness, Denies numbness and Denies tingling Endo Denies palpitations Physical Exam Vital Signs: Last Vital Signs Pulse 88 02/23/23 16:12 BP 120/74 02/23/23 16:12 BMI result Body Mass Index 21.5 Const General: cooperative, healthy appearing, comfortable and no acute distress Orientation/consciousness: patient oriented x3 Neck Neck: Yes normal visual inspection Resp Effort & Inspection: normal respiratory effort Auscultation: clear to auscultation bilaterally, no crackles, no rales, no rhonchi and no wheezes Cardio Jugular venous distension: no JVD Rate: regular rate Rhythm: regular rhythm Heart sounds: S1 normal heart sound present, S2 normal heart sound present, no murmurs and no rubs Neuro General: patient oriented x3 Extrem General: Yes normal to inspection Psych Appearance: grossly normal Mental Status: mental status grossly normal Speech and movement: Normal speech and movement present Office Procedures EKG Details: Today, read by me, normal sinus rhythm, right atrial enlargement, incomplete right bundle branch block, rate 88, QTC 457 millisecond [id number], Complete Assessment & Plan Assessment & Plan (1) Atherosclerotic cardiovascular disease: Comment: Coronary CT from 2018-moderate calcific plaque, most evident in the mid LAD where it is nearly circumferential with moderate luminal narrowing in the 50-69% range. Moderate nearly circumferential calcific plaque in the mid RCA with about 50% stenosis. Mild scattered narrowings elsewhere. Code(s): I25.10 - Atherosclerotic heart disease of [place] coronary artery without angina pectoris Plan: History of CAD, nonobstructive based on coronary CTA in 2018. She did undergo a nuclear stress test 03/09/2020 showing normal myocardial perfusion imaging with EF greater than 75%. She had echocardiogram 04/26/2019 showing EF greater than 70%, no valve abnormality and no regional wall motion abnormalities. EKG done today showing normal sinus rhythm, right atrial enlargement, incomplete right bundle branch block, rate 88. No acute ST or T-wave abnormalities. She denies any anginal sounding symptoms. She does have COPD which she says has been stable. At this time will have her continue on atorvastatin with ideal LDL goal less than 70. Labs done 01/10/2022 showed LDL 58. She will need an updated lipid profile. She is not on aspirin as she is on Xarelto. She will continue on diltiazem. Signs and symptoms of angina reviewed. Cardiology follow-up 6 months. The importance of routine follow-up reviewed with her. (2) PAF (paroxysmal atrial fibrillation): Onset Date: ~04/2016 Comment: (onset 04/2016) - follows w/[facility]--last saw 06/2021-states has not been called for follow-up appt Code(s): I48.0 - Paroxysmal atrial fibrillation Plan: History of paroxysmal atrial fibrillation. Had been on amiodarone in the past, no longer is. Currently just on diltiazem for heart rate control. EKG done today showing normal sinus rhythm. Patient denies having any heart palpitations since her last visit. She has not felt that she was in atrial fibrillation at any point. She has been taking Xarelto for anticoagulation. No bleeding issues reported. Continue current treatment (3) Bilateral carotid artery stenosis: Code(s): I65.23 - Occlusion and stenosis of bilateral carotid arteries Plan: Head and neck CTA done 04/18/2020 showed atherosclerotic disease of the bilateral ICAs causing less than 50% stenosis. Continue with good blood pressure and cholesterol control. (4) Hypertension, essential: Code(s): I10 - Essential (primary) hypertension Plan: Well controlled at present. No med changes made (5) Preop cardiovascular exam: Code(s): Z01.810 - Encounter for preprocedural cardiovascular examination Plan: Preop for spinal stimulator placement on 02/27/2023. Known history of nonobstructive coronary artery disease, paroxysmal atrial fibrillation. No recent ischemic evaluation. Will arrange for pharmacological nuclear stress test this week. Preop clearance to be completed once test results are known. Coding Level of Care Code Est Pt Level 4 (42066) Diagnoses Atherosclerotic cardiovascular disease I25.10 PAF (paroxysmal atrial fibrillation) I48.0 Bilateral carotid artery stenosis I65.23 Hypertension, essential I10 Preop cardiovascular exam Z01.810 CPT Codes EKG - CPT: [id number], Complete ([id number]) Time Spent (min) 28
[2023-02-23 16:12] VITALS: BP 120/74; PULSE 88; BMI 21.5
== END 2023-02-23 16:42 | disposition home or self-care (01) ==
PROVIDERS: PCP Nurse Practitioner Family; Referring Provider Nurse Practitioner Family; Visit Provider Nurse Practitioner Family
DX: I48.0 Paroxysmal atrial fibrillation (principal)
CPT/HCPCS: 93010; 99214

== ENCOUNTER → 2023-02-25 10:50 | Outpatient (REF) | payer OTHER, SELFPAY ==
--- NOTE | ~2023-02-25 | NM_ITS ---
Lexiscan Myocardial perfusion study Indication: Preoperative cardiac vascular evaluation Technique: The patient was brought in for a Lexiscan perfusion study on 02/25/2023 and was injected 0.4 mg of Lexiscan intravenously. Within a minute of this injection 25 mCi of sestamibi was given intravenously. Images were obtained using the SPECT gamma camera interlaced with the gating device. Images were obtained in supine position. Resting perfusion study was performed on 02/26/2023. Patient was administered 25 mCi of sestamibi intravenously at rest. Images were then obtained in supine position. Images were processed with the software and compared side to side in short axis, horizontal long axis and vertical long axis views. Total DLP 69mGy-cm. Findings: Raw acquisition reviewed. Arms by the patient's side. The stress perfusion study showed no significant perfusion abnormality. Both uncorrected as well as CT attenuation corrected images were reviewed. The gated study shows normal LV systolic function with calculated LVEF of 67%. LV cavity is normal in size. The gated study shows normal wall thickening and contraction of segments. Resting study shows no significant perfusion abnormality. Gating at rest reveals normal wall motion. Visually normal LVEF. Calculated value not accurate. The findings are consistent with no clear reversible or fixed perfusion defects. NM/NM cardiolite stress test Impression: 1. Myocardial perfusion imaging study shows normal myocardial perfusion. 2. Gated LVEF is 67% during stress. 3. Transient ischemic dilatation not present. EKG component of the test reported separately.
--- NOTE | 2023-02-25 10:59 | CA_ITS ---
Acquisition Time: 2023-02-25 11:07:19 Total Exercise Time: 00:02:00 Test Indications: CAD Medications: SEE H Protocol: LEXISCAN Max HR: 131 BPM 90% of Pred: 144 BPM Max BP: 124/070 mmHG Max Work Load: 1.0 METS Pharmacolgoical stress test with Lexiscan injection while sitting and kicking her legs, without anginal symptoms, with isolated PAC and PVCs, with normotensive response to injection, with nondiagnostic EKGs. Aminophylline 75mg IVP given to reverse Lexiscan. Nuclear images pending. Test reviewed with Dr. Gonsalez. Referred By: Crista Burgos Overread By: Jesusita Johnson
== END ==
LOC: HO.CARD 10:50
PROVIDERS: PCP Nurse Practitioner Family; Visit Provider Nurse Practitioner Family
DX: Z01.810 Encounter for preprocedural cardiovascular examination (principal); I48.0 Paroxysmal atrial fibrillation; I25.10 Atherosclerotic heart disease of native coronary artery without angina pectoris
CPT/HCPCS: 78452; 93017; A9500; J0280; J2785

== ENCOUNTER → 2023-02-25 10:59 | Outpatient (BNV) | payer OTHER, SELFPAY | PROVIDERS: PCP Nurse Practitioner Family; Visit Provider Nurse Practitioner | DX: I25.10 Atherosclerotic heart disease of native coronary artery without angina pectoris (principal) | CPT/HCPCS: 78452; 93016; 93018 ==

== ENCOUNTER 2023-02-27 06:39 | Day surgery (SDC) | payer OTHER, SELFPAY ==
[2023-02-25 15:50] VITALS: BMI 21.5
--- NOTE | 2023-02-26 11:52 | P.CONAN_ITS ---
Documented by User: Shahida Hightower NP 02/26/23 15:10 HPI - Anesthesia Eval Consult details Narrative: Pending nuc med for cardiac clearance Pulmo eval 09/2022 - does not need supplemental O2 by 6 minute walk test, pending overnight oximetry, cough and congestion since restarting smoking Cardio eval 02/2023 - t/c with Crista Burgos NP. OK to proceed with low-intermed risk. Xarelto for afib PMFSH Active Problems Active Problems: All Active Problems (Updated 02/23/23 @ 16:47 by Crista Burgos NP-C) Preop cardiovascular exam (Acute) Eye drainage (Acute) Redness of eye, left (Acute) Memory loss (Acute) Conjunctivitis, acute, bilateral (Acute) Arthritis of left hip (Acute) Precordial chest pain (Acute) Arm numbness (Acute) Lipid disorder (Acute) Environmental allergies (Acute) Hypertension, essential (Acute) Bronchitis (Acute) Compression fracture of lumbar spine, non-traumatic (Acute) Weight loss (Acute) Lack of appetite (Acute) Recurrent closed fracture of lumbar vertebra (Acute) Chronic back pain (Acute) Abdominal discomfort (Acute) Lumbar radiculitis (Acute) Recurrent fracture of lumbar vertebra (Acute) Neuropathy (Acute) Acute bronchitis (Acute) Pain management (Acute) Coronary artery disease (Acute) Right knee pain (Acute) Bilateral hip pain (Acute) Fibromyalgia (Acute) Lumbar spondylolysis (Acute) Lumbar degenerative disc disease (Acute) Lumbar radiculopathy (Acute) Major depression, recurrent (Acute) Anxiety, generalized (Acute) Physical exam (Acute) Urinary frequency (Acute) Leukocytosis (Acute) History of vertebral compression fracture (Acute) Chronic pain syndrome (Acute) Brain aneurysm (Acute) Atherosclerotic cardiovascular disease (Acute) Bilateral carotid artery stenosis (Acute) PAF (paroxysmal atrial fibrillation) (Acute ~04/2016) COPD (chronic obstructive pulmonary disease) (Acute) Personal history of nicotine dependence (Acute) Depression with anxiety (Acute) Past Medical History Medical History Atherosclerotic cardiovascular disease Basal cell carcinoma Bilateral carotid artery stenosis Brain aneurysm COPD (chronic obstructive pulmonary disease) Depression with anxiety History of COVID-19 (~06/2021) History of non-ST elevation myocardial infarction (NSTEMI) (~04/2016) Osteopenia (~2009) PAF (paroxysmal atrial fibrillation) (~04/2016) Personal history of nicotine dependence Family History Family History Father No problems noted. Mother No problems noted. Brother Stroke Family history of problems with anesthesia: No Surgical History Surgical History History of inguinal hernia repair, bilateral (~2018) History of skin surgery History of arthroscopic surgery of shoulder (~2009) History of carpal tunnel release History of bladder surgery History of thumb surgery History of tubal ligation History of total hysterectomy History of Problems with Anesthesia: No Social History Social History Housing: Other Housing Other:: mobile home Are you a primary career discovery teacher to a significant other at home: No Do you presently have visiting nurse or other home services: Yes ([facility]) Patient Tobacco Use Status: Current everyday Tobacco user Tobacco use type: Cigarette Cigarettes Per Day: 0.5 Years Smoked: 68 e-Cigarette/Vaping Use: Never Used Second Hand Smoke Exposure: Yes Use of substances other than those prescribed or required for medical reasons: Yes Are you DNR?: No Advance Directives: No Advance Directives Information Provided: Yes Advance Directives on File: No Advance Directives Date on File: 12/20/18 Current occupational status: retired and disabled Cognitive needs: No Hearing needs: No Vision needs: No Meds Allergies Allergy/AdvReac Type Severity Reaction Status Date / Time Cephalosporins Allergy Unknown UNKNOWN Verified 02/23/23 16:15 [CEPHALOSPORINS] clonidine [CLONIDINE] Allergy Unknown UNKNOWN Verified 02/23/23 16:15 gabapentin [GABAPENTIN] Allergy Unknown UNKNOWN Verified 02/23/23 16:15 mirtazapine [From REMERON] Allergy Unknown UNKNOWN Verified 02/23/23 16:15 naproxen Allergy Unknown UNKNOWN Verified 02/23/23 16:15 tramadol Allergy Unknown UNKNOWN Verified 02/23/23 16:15 bupropion [From WELLBUTRIN] AdvReac Unknown Shaky Verified 02/23/23 16:15 Home Medications Medication Instructions Recorded Confirmed Last Taken Type clonazepam 0.5 mg tablet 0.5 mg PO TID PRN Anxiety 03/08/20 02/23/23 Unknown History trazodone 150 mg tablet 150 mg PO BEDTIME 03/08/20 02/23/23 Unknown History calcium carbonate 500 mg calcium 500 mg PO DAILY 05/15/22 02/23/23 Unknown History (1,250 mg) chewable tablet (Calcium 500) Exam Exam Date and Time: February 26, 2023 1152 Height,Weight and Vital Signs: Height 5 ft Weight 49.895 kg Assessment and Plan Assessment Anesthesia Assessment: Chart Reviewed Final Anesthetic Review Family History of Problems with Anesthesia: No History of Problems with Anesthesia: No Documented by User: Nicolasa Marte MD 02/27/23 08:23 [facility] Past Medical History Medical History Atherosclerotic cardiovascular disease Basal cell carcinoma Bilateral carotid artery stenosis Brain aneurysm COPD (chronic obstructive pulmonary disease) Depression with anxiety History of COVID-19 (~06/2021) History of non-ST elevation myocardial infarction (NSTEMI) (~04/2016) Osteopenia (~2009) PAF (paroxysmal atrial fibrillation) (~04/2016) Personal history of nicotine dependence Family History Family History Father No problems noted. Mother No problems noted. Brother Stroke Surgical History Surgical History History of inguinal hernia repair, bilateral (~2018) History of skin surgery History of arthroscopic surgery of shoulder (~2009) History of carpal tunnel release History of bladder surgery History of thumb surgery History of tubal ligation History of total hysterectomy Social History Social History Housing: Other Housing Other:: mobile home Are you a primary career discovery teacher to a significant other at home: No Do you presently have visiting nurse or other home services: Yes ([facility]NA) Patient Tobacco Use Status: Current everyday Tobacco user Tobacco use type: Cigarette Cigarettes Per Day: 0.5 Years Smoked: 68 e-Cigarette/Vaping Use: Never Used Second Hand Smoke Exposure: Yes Use of substances other than those prescribed or required for medical reasons: Yes Are you DNR?: No Advance Directives: No Advance Directives Information Provided: Yes Advance Directives on File: No Advance Directives Date on File: 12/20/18 Current occupational status: retired and disabled Cognitive needs: No Hearing needs: No Vision needs: No Meds Allergies Allergy/AdvReac Type Severity Reaction Status Date / Time Cephalosporins Allergy Unknown UNKNOWN Verified 02/23/23 16:15 [CEPHALOSPORINS] clonidine [CLONIDINE] Allergy Unknown UNKNOWN Verified 02/23/23 16:15 gabapentin [GABAPENTIN] Allergy Unknown UNKNOWN Verified 02/23/23 16:15 mirtazapine [From REMERON] Allergy Unknown UNKNOWN Verified 02/23/23 16:15 naproxen Allergy Unknown UNKNOWN Verified 02/23/23 16:15 tramadol Allergy Unknown UNKNOWN Verified 02/23/23 16:15 bupropion [From WELLBUTRIN] AdvReac Unknown Shaky Verified 02/23/23 16:15 Home Medications Medication Instructions Recorded Confirmed Last Taken Type clonazepam 0.5 mg tablet 0.5 mg PO TID PRN Anxiety 03/08/20 02/23/23 Unknown History trazodone 150 mg tablet 150 mg PO BEDTIME 03/08/20 02/23/23 Unknown History calcium carbonate 500 mg calcium 500 mg PO DAILY 05/15/22 02/23/23 Unknown History (1,250 mg) chewable tablet (Calcium 500) Exam Airway Mallampati Class: III TM Dist: >3cm Neck ROM: Full Denture: Upper and Lower Lungs: clear Assessment and Plan Final Anesthetic Review NPO: Yes ASA Class: III Final Preanesthetic Review: No Changes in Pt Med Stat, Meds/Allgs Chart Reviewed, Consent Obtained/Reviewed and Anes Risks/Benef Reviewed Patient Risk: Intermediate Procedure Risk: Low Anesthetic Plan Anesthetic Plan: GA Disposition: Standard PACU
[2023-02-27] VITALS (8 sets, daily range): BP systolic 107–164; BP diastolic 45–83; PULSE 70–78; RESP 10–17; TEMP 36.6–36.8; O2SAT 94–99
--- NOTE | ~2023-02-27 | FL_ITS ---
EXAMINATION: XR FLUOROSCOPY WITH IMAGES CLINICAL INFORMATION: Spinal cord stimulation. COMPARISON: Previous exam most recent September 2022 TECHNIQUE: Fluoroscopy Supervised By: Dr. Shmuel Mena. Fluoroscopy Time: 12.8 minutes. Cumulative Dose: 118 mGy. DAP: 3.20 Gycm2. Images: 7. FINDINGS: Fluoroscopy guidance for spinal cord stimulator. Initial image demonstrates angle stimulator lead projecting over the lower thoracic spinal canal. Final image demonstrates 2 stimulator leads projecting over the lower thoracic spinal canal. FL/FL guidance in OR IMPRESSION: Fluoroscopy guidance for spinal cord stimulation.
--- NOTE | 2023-02-27 08:10 | MHC.SHP ---
Pre-Procedural Eval Section A Date of Service: 02/27/23 Section B Chief Complaint: Other spondylosis with radiculopathy, lumbar regio Details of Present Illness: chronic pain syndrome plus as above Relevant Family History (Specify if Yes): No Relevant Social History: None Present Medications: None Medical History: No relevant PMH History of Previous Operations: No relevant previous surgery Allergies: Allergies Allergy/AdvReac Type Severity Reaction Status Date / Time Cephalosporins Allergy Unknown UNKNOWN Verified 02/23/23 16:15 [CEPHALOSPORINS] clonidine [CLONIDINE] Allergy Unknown UNKNOWN Verified 02/23/23 16:15 gabapentin [GABAPENTIN] Allergy Unknown UNKNOWN Verified 02/23/23 16:15 mirtazapine [From REMERON] Allergy Unknown UNKNOWN Verified 02/23/23 16:15 naproxen Allergy Unknown UNKNOWN Verified 02/23/23 16:15 tramadol Allergy Unknown UNKNOWN Verified 02/23/23 16:15 bupropion [From WELLBUTRIN] AdvReac Unknown Shaky Verified 02/23/23 16:15 Review of Systems Sugical H&P ROS: Negative: Constitution, Neurological, Psychiatric, Hem-Onc, Allergic/Immunologic, Gastrointestinal, Genitourinary, Integumentary, Endocrine and Eyes/Ears/Nose/Throat and Yes, Specify: Cardiovascular (peripheral vscular disease, CAD.), Respiratory (COPD) and Musculoskeletal (chronic pain syndrome, spondylosis lumbar spine.) Exam Surgical H&P Exam: Normal: HEENT, Normal: Heart, Normal: Lungs, Normal: Extremities, Normal: Abdomen, Normal: Skin and Normal: Neurological Plan Diagnosis/Plan: Unchanged I have reviewed the history and physical and performed a pertinent physical examination on my patient. No changes have occurred unless specified. Time Spent With Patient Time: Total time managing care of this patient today __5__ minutes.
--- NOTE | 2023-02-27 11:21 | P.BOP_ITS ---
Brief Operative Note Date of Service: 02/27/23 Pre-op diagnosis: Chronic pain syndrome Post-op diagnosis: same Procedure: Implantation of Nevro SCS Implants: Nevro omnia battery and 2 epidural leads Surgeon: Shmuel Mena MD Anesthesia: GETA Was an Kennel Manager used for this Procedure?: No Estimated blood loss (mL): 14 Pathology: none sent Condition: stable Disposition: PACU
--- NOTE | 2023-02-27 11:25 | P.OP_ITS ---
Operative Note Operative Note Date of Service: 02/27/23 Narrative: Tova is very pleasant 78 years old female who came today the operating room for the implant of Nevro spinal cord stimulator for the treatment of mostly axial lower back pain . After obtaining informed consent patient was brought to the operating room, she was positioned supine on the stretcher, [employer] physiology monitors were applied and patient was induced with general anesthesia with endotracheal i ntubation.? After that patient was transferred on the operating table prone, all pressure points were protected. ? Time-out was performed delineating correct site, side, the nature of the procedure, patient's allergy, preoperative antibiotic if needed.? All operating room staff was participating in OR time-out procedure. Time-out was performed delineating correct site, side, the nature of the procedure, patient's allergy, preoperative antibiotic.? All operating room staff was participating in OR time-out procedure. Patient's entire back was prepped with ChloraPrep twice and draped with full body drape including Ioban film.? Sterilely draped C-arm was brought over operating field and square picture of T12, L1, L2?vertebrae? were demonstrated on the screen.? THE PROJECTION OF? L1-L2 and L3?SPINOUS PROCESSES TO THE SKIN WERE INFILTRATED WITH LIDOCAINE 2% MIXED WITH BUPIVACAINE 0.5%.? 5. CM LONG VERTICAL INCISION using a 10 blade scalpel WAS PERFORMED IN STRICT MIDLINE VERTICAL FASHION.? THOROUGH HEMOSTASIS WAS PERFORMED using electrocautery. ?Thorough tissue dissections was performed until prevertebral fascia was freed from overlying tissues.? Attention FIRST? was concentrated on the RIGHT T12-L1 epidural interspace.? The location of the projection of the right pedicle center of the?L2?vertebra was found on the prevertebral fascia using C-arm. 10 cm 14 gauge straight introducer epidural needle was inserted through the fascia and advanced toward?T12-L1 epidural interspace.? The advancement of the needle was performed on anterior posterior and lateral views.? Guitar wire and loss of resistance technique were used to locate epidural space.?When loss of resistance was felt in the needle, guitar wire was obtained inserted into the needle and spread in epidural fashion. After that epidural lead was inserted through the needle and it was advanced to the position in the POSTERIOR EPIDURAL SPACE strictly on the MIDLINE at the posterior T8 vertebral body body epidural space. The location of the lead was verified by lateral x-ray in the posterior epidural space. After that location of the projection of the LEFT pedicle center of the L2 vertebra was found -using C-arm.? This location was injected with mixture of lidocaine 2% and Marcaine 0.5% 5 cc.? Again here 10 cm 14 gauge straight epidural needle was inserted through the prevertebral fascia and advanced to T12-L1 intervertebral interspace now on the left side.? Loss of resistance to air technique was used to locate epidural space and guitar wire was used to confirm position of the epidural space. When guitar wire was spread in the epidural fashion, epidural lead was inserted through the needle and advanced to the T9 POSTERIOR EPIDURAL SPACE?LEFT to the existing LEAD.? THE LOCATION OF BOTH LEADS in the posterior epidural space WAS VERIFIED ON ANTERIOR POSTERIOR AND LATERAL VIEWS. After satisfactory position of the leads were established the needles were withdrawn, the stylette wires were removed from the epidural leads.? The anchoring devices were dislodged on the leads and advanced to the level of the prevertebral fascia.? The anchoring devices were advanced along the epidural leads and dislodged on epidural leads at the level of prevertebral fascia.? They were sutured to prevertebral fascia with 2 separate Tycron 1-0 sutures per each anchoring device.? The fixating screws were fixed until 3 clicks were heard on each anchoring device. After that the wound was irrigated with copious amount of Vancomycin containing normal saline and packed with Vancomycin soaked 4 x 4. ?After that attention was concentrated on the right upper buttock??of the patient?where he wanted the? battery to be implanted.?Using 10 scalpel 6 cm long horizontal incision was performed 3 cm below the projection to the skin of the right iliac creest. ? The wound was deepened and widened and thorough hemostasis was performed. The pocket was created to accommodate the battery. Irrigation with vancomycin containing saline was performed.After that the? tunneling device was used to connect midline incision and the right upper buttock incision. Thorough hemostasis was performed. ?? After that tunneling device was used to connect both wounds and dislodge epidural leads from midline wound to the lateral wound in the upper Left buttock..? The epidural lead's contacting ends were connected to the battery. The impedance was satisfactory. After that both wounds were thoroughly irrigated with normal saline containing vancomycin.? Tycron 1 0 Sutures were applied to the most superior lateral and most superior medial corners of the? wound.? Those sutures were tied after the battery was inserted into the pocket with the epidural leads collected behind the body of the battery.. After that 0 Polisorb sutures were used to close both wounds.?0-2 Polisorb surures were used to approximate the level of the skin on the both wounds.? Emilee were applied to skin level.? Bacitracin ointment was smeared on the staple line.? Sterile dressing was applied.? Abdominal binder was applied.? The patient was transferred to the stretcher, awaken, and in stable condition transferred to PACU.?
== END 2023-02-27 12:58 | disposition home or self-care (01) ==
PROVIDERS: PCP Nurse Practitioner Family; Visit Provider Anesthesiology
PROC: (CPT 63685; principal; 2023-02-27 08:20)
DX: M47.26 Other spondylosis with radiculopathy, lumbar region (principal); M51.36 Other intervertebral disc degeneration, lumbar region; M16.12 Unilateral primary osteoarthritis, left hip; G89.4 Chronic pain syndrome; M85.80 Other specified disorders of bone density and structure, unspecified site; M79.7 Fibromyalgia; I48.0 Paroxysmal atrial fibrillation; I25.10 Atherosclerotic heart disease of native coronary artery without angina pectoris; I10 Essential (primary) hypertension; I25.2 Old myocardial infarction; E78.5 Hyperlipidemia, unspecified; F41.8 Other specified anxiety disorders; J44.9 Chronic obstructive pulmonary disease, unspecified; Z99.89 Dependence on other enabling machines and devices; Z79.01 Long term (current) use of anticoagulants; Z79.51 Long term (current) use of inhaled steroids; Z88.8 Allergy status to other drugs, medicaments and biological substances; Z88.1 Allergy status to other antibiotic agents; Z86.16 Personal history of COVID-19; F17.210 Nicotine dependence, cigarettes, uncomplicated; Z87.81 Personal history of (healed) traumatic fracture
CPT/HCPCS: 63685; 63650 ×2; C1713; C1778; C1787; C1816; J2250; J2371; J2405; J2795; J3010; J3370

== ENCOUNTER → 2023-02-27 06:39 | Outpatient (BNV) | payer OTHER, SELFPAY | PROVIDERS: PCP Nurse Practitioner Family; Visit Provider Anesthesiology | DX: G89.4 Chronic pain syndrome (principal) | CPT/HCPCS: 63650; 63685 ==

== ENCOUNTER 2023-03-05 09:26 | Outpatient (AMB) | payer OTHER, SELFPAY ==
[2023-03-05 09:41] VITALS: BP 130/60; PULSE 104; RESP 14; O2SAT 94; BMI 21.1
--- NOTE | 2023-03-05 09:41 | A.OFFVIS_ITS ---
Intake Vital Signs 03/05/23 09:41 Height 5 ft Weight 108 lb 4 oz BMI 21.1 BP 130/60 Blood Pressure Location Lt brachial Position Sitting Respiration 14 Pulse 104 H Pulse Source Pulse Oximeter Pulse Oximetry (%) 94 Oxygen Delivery Method Room Air Intake Visit Reasons: S/p NEVRO SCS Implant 02/27/23/CONFIRMED Intake Note: patient comes in for post-op week 1. Allergies Cephalosporins [CEPHALOSPORINS] Allergy (Unknown, Verified 03/05/23 09:41) UNKNOWN clonidine [CLONIDINE] Allergy (Unknown, Verified 03/05/23 09:41) UNKNOWN gabapentin [GABAPENTIN] Allergy (Unknown, Verified 03/05/23 09:41) UNKNOWN mirtazapine [From REMERON] Allergy (Unknown, Verified 03/05/23 09:41) UNKNOWN naproxen Allergy (Unknown, Verified 03/05/23 09:41) UNKNOWN tramadol Allergy (Unknown, Verified 03/05/23 09:41) UNKNOWN bupropion [From WELLBUTRIN] Adverse Reaction (Unknown, Verified 03/05/23 09:41) Xochitl HPI HPI Comments History of Present Illness Details Tova is in the office today S/p implantation of the SCS Nevro on 02/27/23. She reports strong postoperative pain syndrome which interferes with her perception of the SCS function. The devise is on minimal power now. She continues to take oral opioids for postoperative pain. The dressing was removed: the wounds are clean no swelling , no redness, no pathological discharge, minimal tenderness on palpation. Next time she is here we will remove the madonna and will start the device on full power. By that time her postop pain must be much better. Trial of the SCS Nevro with good results in September of 2022. Prior: Right L5-S1 interlaminar PADMINI with Dr. Mena on 11/19/21. Tova is 77 years old female who is suffering from degenerative disc disease with radiculopathy, chronic syndrome, spondylosis of lumbar spine. She has axial lower back pain with radiation into lower extremities. She received epidural steroid injections in the past with less than initial results according to the patient's. She wants some permanent pain improvement. She was offered Nevro SCS, she went for psychological evaluation and she was approved for trial procedure. New appointment is after the trial. came to the office for the follow-up after epidural steroid injection it was done L5-S1 epidural steroid injection on the premise that she received multiple epidural steroid injections in the past.? Today she insisted that those epidural steroid injections never worked.? She is interested in some permanent solutions of her procedure.? We discussed Nevro spinal cord stimulator.? I explained to the patient psychological evaluation.? She signed the consent for psych evaluation.? Unfortunately the brochure for never SCS was not today in the office and we will mail these brochure to her as soon as it is available for us.? Because the psychological evaluation is being backed up I will schedule appointment this patient with me in 2 months. Patient is a pleasant 76 years old female presents today for initial evaluation of chronic ?whole body pain? and chronic right lumbar radiculopathy that has been progressively worsening over the last year. She presents in significant distress due to lumbar pain especially with bending forward and flexion and limited extension. Denies trauma, injury or falls but reports few years ago her back was hurting significantly after heavy snow shoveling. Patient reports her back pain travels upward and also radiates to her right hip, right buttocks, and down into her right lower leg laterally to the ankle with mild numbness and tingling. Pain described as constant aching, stabbing, sharp, tiring, and exhausting. It interferes with her daily activities, functioning and sleep. Patient was previously followed by Dr. Baker in [place] for pain management and received multiple therapeutic injections, last injection on 03/13/20 bilateral L5-S1 lumbar PADMINI with good results. Per old records review, the patient was also referred to Dr. Stone at [facility] on 09/2018 for disc herniations and nerve compression. Patient denies previous back surgery. She has a history of recurrent spinal fractures, L1 and L2 stable compression fractures and L4 compression fracture has not yet healed. Patient was evaluated by [facility] vascular services for possible kyphoplasty on 05/2019 but reports it has not been done. She is a chronic current everyday smoker with a 50+ pack years, now at 5-7 cig/day and marijuana use. Patient reports she has been losing weight of 30 lbs in about 5-6 months, with decreased appetite due to constant pain. 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 Patient reports she feels fatigued with low energy levels all the time, and was recommended to drink Ensure. She reports being diagnosed with fibromyalgia a long time ago. Denies any fever, malaise, abdominal or groin pain, dizziness, chest pain, bladder/bowel dysfunction or saddle anesthesia. She reports intermittent weakness and ambulates with antalgic gate and use of cane. She also tried gabapentin which has not been helpful. No previous physical therapy done and patient currently unable to participate in formal PT due to significant pain and her current condition. Recent lumbar MRI is noted below, with significant advancement of multilevel disc bulging and facet arthropathy, multilevel bilateral neural foraminal stenosis, mild to moderate compression fracture L1, L2, and L4. Since the previous study, there has been approximately 40-50% loss of height of the L4 vertebral body, consistent with a compression fracture, which appears incompletely healed. Mild right subarticular recess stenosis at L4-L5 on and [id number] left subarticular recess stenosis at L3-L4 and no central spinal canal stenosis, grade 1 degenerative spondylolisthesis at L5-S1. Moderate to severe right-sided neural foraminal stenosis and moderate left-sided neural foraminal stenosis have progressed from previous study, with right L5 nerve root impingement progressed.? I will send medical records release requests to [facility] vascular Dr. Dugan last evaluation report with spine fluoroscopy for kyphoplasty and [facility] neurosurgeon Dr. Stone for surgical evaluation for back surgery in 2019. Patient with extensive cardiac history, has been on Xarelto to maintain her sinu s rhythm with a history of atrial fibrillation due COPD exacerbation.?She is interested to repeat lumbar ESIs as well as non-opioid medical management to alleviate her pain. [facility] Medical History Atherosclerotic cardiovascular disease Basal cell carcinoma Bilateral carotid artery stenosis Brain aneurysm COPD (chronic obstructive pulmonary disease) Depression with anxiety History of COVID-19 (~06/2021) History of non-ST elevation myocardial infarction (NSTEMI) (~04/2016) Osteopenia (~2009) PAF (paroxysmal atrial fibrillation) (~04/2016) Personal history of nicotine dependence Surgical History History of inguinal hernia repair, bilateral (~2018) History of skin surgery History of arthroscopic surgery of shoulder (~2009) History of carpal tunnel release History of bladder surgery History of thumb surgery History of tubal ligation History of total hysterectomy Family History Father No problems noted. Mother No problems noted. Brother Stroke Social History Housing: Other Housing Other:: mobile home Are you a primary hospice patient care secretary to a significant other at home: No Do you presently have visiting nurse or other home services: Yes ([facility]NA) Patient Tobacco Use Status: Current everyday Tobacco user Tobacco use type: Cigarette Cigarettes Per Day: 0.5 Years Smoked: 68 e-Cigarette/Vaping Use: Never Used Second Hand Smoke Exposure: Yes Advance Directives Date on File: 12/20/18 Current occupational status: retired and disabled Cognitive needs: No Hearing needs: No Vision needs: No Review of Systems Const All systems reviewed & are unremarkable except as noted in HPI and below ENT Reports Normal hearing present Neuro Reports Normal hearing present and Denies Sensory deficit (Neuro) Physical Exam Vital Signs: Last Vital Signs Pulse 104 H 03/05/23 09:41 Resp 14 03/05/23 09:41 BP 130/60 03/05/23 09:41 Pulse Ox 94 03/05/23 09:41 Oxygen Delivery Method Room Air 03/05/23 09:41 BMI result Body Mass Index 21.1 Const General: cooperative and healthy appearing Nutritional Appearance: well nourished Orientation/consciousness: patient oriented x3 Limitations: no limitations HEENT Head: Yes normal to inspection Ears: hearing grossly normal bilaterally and external ears normal Face and sinus: Yes normal facial exam and Yes face symmetric Eyes Other: Right and left eye: Bulbar conjunctiva is congested. General: appearance normal, both eyes and all related structures Visual Escamilla: normal visual escamilla by confrontation Pupils: Equal, round and reactive pupils present EOM: EOMs intact bilaterally Neck Neck: Yes normal visual inspection Chest Chest palpation & inspection: normal palpation of entire chest wall Resp Effort & Inspection: normal respiratory effort, able to speak in complete sentences, normal respiratory pattern, no audible wheezes, no cough and respiratory effort not decreased Cardio Jugular venous distension: no JVD GI Inspection: Yes normal to inspection Palpation (GI): Soft to palpation General: Yes no CVA tenderness Back/Spine/Pelvis Other: Patient is able to walk on heels and tip toes with cane and mild difficulty. Back extension and forward flexion easily reproduces patient's severe lower back pain. Demonstrates 4/5 strength of quadriceps bilaterally as well as flexion/dorsiflexion of bilateral feet against resistance. Significant TTP in projection of the bilateral SIJ. Jose Miguel test and Stinchfield test resulted in significant pain in the projection SIJ bilaterally. Unable to perform further testing due to exacerbation in pain. Bilateral groin pain with hip internal and external rotations. Back: no CVA tenderness Skin General skin exam: no rashes or lesions noted and dry skin Neuro General: patient oriented x3 Cranial nerves: Yes Equal, round and reactive pupils present and Yes Normal hearing present Cognition (Neuro): normal cognition Gait exam (Neuro): Antalgic gait present and No Assistive device used Motor exam (neuro): no tremor noted Sensory Exam: No Sensory deficit (Neuro) Deep tendon reflexes (DTR's): Right patellar reflex intensity grade: 1+, Left patellar reflex intensity grade: 1+, Right ankle reflex intensity grade: 1+ and Left ankle reflex intensity grade: 1+ Coordination: Romberg test negative Extrem General: Yes full ROM, Yes capillary refill normal, Yes no clubbing, cyanosis or edema and Yes no calf tenderness Psych Appearance: grossly normal Mental Status: mental status grossly normal Speech and movement: Clear speech present Affect: normal affect Attitude: cooperative Thought process: Normal thought process present Thought content: Normal thought content present, suicidality, no hallucinations and No Depressive thoughts present Insight: Good insight present (Psych) Judgement: Good judgement present (Psych) Assessment & Plan Assessment & Plan (1) Fibromyalgia: Code(s): M79.7 - Fibromyalgia (2) Lumbar radiculopathy: Code(s): M54.16 - Radiculopathy, lumbar region (3) Lumbar degenerative disc disease: Code(s): M51.36 - Other intervertebral disc degeneration, lumbar region (4) Chronic back pain: Code(s): M54.9 - Dorsalgia, unspecified; G89.29 - Other chronic pain (5) Chronic pain syndrome: Code(s): G89.4 - Chronic pain syndrome (6) History of vertebral compression fracture: Code(s): Z87.81 - Personal history of (healed) traumatic fracture (7) Arthritis of left hip: Code(s): M16.12 - Unilateral primary osteoarthritis, left hip Plan Right L5-S1 interlaminar PADMINI 11/19/21 w resulted in pain aggravation. Patient has combination of axial lumbar and thoracic back pain and radiation of the pain into right lower extremity. She has significant osteoporosis. She is also on Xarelto which her meal temperer allows her to stop provided that she understands that it will slightly increase the risk of stroke for her. trial of SCS Nevro. She reports 80% pain relief on her lower back pain with radiation into the right lower extremity however the pain in the axial sacral and coccygeal spine remains untouched by the stimulation. Also reports no pain improvement on the left hip pain with radiation into the left groin. I suspected she has left hip arthritis, I offered her hip x-ray and after that I will perform left hip steroid injection. She was not decisive whether not she wants the permanent implant of Nevro SCS. Eventually she thought that the partial cover of pain is better than none and decided to go for the SCS Nevro implant. Dressing change today as above - the machine is on minimal power now. Next week madonna removal and we will start full amplitude and frequency stimulation. Coding Level of Care Code Est Pt Level 4 (16159) Diagnoses Fibromyalgia M79.7 Lumbar radiculopathy M54.16 Lumbar degenerative disc disease M51.36 Chronic back pain M54.9; G89.29 Chronic pain syndrome G89.4 History of vertebral compression fracture Z87.81 Arthritis of left hip M16.12
== END 2023-03-05 10:00 | disposition home or self-care (01) ==
PROVIDERS: PCP Nurse Practitioner Family; Visit Provider Anesthesiology
DX: M79.7 Fibromyalgia (principal); M54.16 Radiculopathy, lumbar region; M51.36 Other intervertebral disc degeneration, lumbar region; M54.9 Dorsalgia, unspecified; G89.29 Other chronic pain; G89.4 Chronic pain syndrome; Z87.81 Personal history of (healed) traumatic fracture; M16.12 Unilateral primary osteoarthritis, left hip
CPT/HCPCS: 99024

== ENCOUNTER → 2023-03-05 09:26 | Outpatient (BNVA) | payer OTHER, SELFPAY | PROVIDERS: PCP Nurse Practitioner Family; Visit Provider Anesthesiology | DX: G89.4 Chronic pain syndrome (principal); M79.7 Fibromyalgia; M54.16 Radiculopathy, lumbar region; M51.36 Other intervertebral disc degeneration, lumbar region; G89.29 Other chronic pain; M54.9 Dorsalgia, unspecified; M16.12 Unilateral primary osteoarthritis, left hip; Z87.81 Personal history of (healed) traumatic fracture | CPT/HCPCS: 99212 ==

== ENCOUNTER 2023-03-09 14:19 | Outpatient (AMB) | payer OTHER, SELFPAY ==
--- NOTE | 2023-03-09 14:23 | A.OFFVIS_ITS ---
Intake Vital Signs 03/09/23 14:25 Height 5 ft Weight 109 lb BMI 21.3 BP 110/60 Blood Pressure Location Lt brachial Position Sitting Pulse 90 Pulse Source Pulse Oximeter Pulse Oximetry (%) 95 Oxygen Delivery Method Room Air Intake Visit Reasons: COPD Intake Note: pt is here for follow up and states she is coughing, wheezing and shortness of breath, as the same as last visit. Doper Operator Required: No Allergies Cephalosporins [CEPHALOSPORINS] Allergy (Unknown, Verified 03/09/23 14:41) UNKNOWN clonidine [CLONIDINE] Allergy (Unknown, Verified 03/09/23 14:41) UNKNOWN gabapentin [GABAPENTIN] Allergy (Unknown, Verified 03/09/23 14:41) UNKNOWN mirtazapine [From REMERON] Allergy (Unknown, Verified 03/09/23 14:41) UNKNOWN naproxen Allergy (Unknown, Verified 03/09/23 14:41) UNKNOWN tramadol Allergy (Unknown, Verified 03/09/23 14:41) UNKNOWN bupropion [From WELLBUTRIN] Adverse Reaction (Unknown, Verified 03/09/23 14:41) Shaky Medication List - Last Reconciled 03/09/23 by Satinder Granados MD albuterol sulfate 90 mcg/actuation 2 puffs PO Q6H PRN 30 days albuterol sulfate 2.5 mg (3 mL) inhalation TID atorvastatin 40 mg PO DAILY calcium carbonate (Calcium 500) 500 mg PO DAILY cetirizine 5 mg (1/2 x 10 mg) PO DAILY PRN 90 days cholecalciferol (vitamin D3) 50 mcg PO ONCE 90 days clindamycin HCl 300 mg PO Q6H 14 days clonazepam 0.5 mg PO TID PRN diltiazem HCl ER (Tiadylt ER) 120 mg PO DAILY [[facility] to [facility] Attn: Angela Bowman FAX [phone] tel [phone] ext [phone]] fluticasone propionate 110 mcg/actuation (Flovent HFA) 1 puff inhalation BID lidocaine 5% 1 appl topical BEDTIME PRN 30 days memantine (Namenda) 5 mg PO QAM neomycin-polymyxin B-dexameth 3.5mg/mL-10,000 unit/mL-0.1 % 1 drp ophthalmic (eye) Q12H ofloxacin 0.3% 2 drps ophthalmic (eye) QID pregabalin 50 mg PO BID 30 days rivaroxaban (Xarelto) 20 mg PO DAILY 90 days trazodone 150 mg PO BEDTIME Do you need a note to return to daycare/school/sports/work: No HPI COPD HPI Details This 78 years old thin build very pleasant lady, Tova, is here for 4 months follow-up. She continues to smoke, currently half pack of cigarettes a day. Has mild intermittent cough, and gets short of breath if she walks around with a cane, Her walking is impaired because of ongoing back pain. Just recently she has a stimulator placed in the back to control pain. Her respiratory status is the staying stable. She uses O2 2 L/minute at night. [facility] Medical History (Updated 03/09/23 @ 15:02 by Satinder Granados MD) Nocturnal hypoxemia Basal cell carcinoma History of COVID-19 (~06/2021) Personal history of nicotine dependence Osteopenia (~2009) History of non-ST elevation myocardial infarction (NSTEMI) (~04/2016) COPD (chronic obstructive pulmonary disease) Depression with anxiety Brain aneurysm Bilateral carotid artery stenosis PAF (paroxysmal atrial fibrillation) (~04/2016) Atherosclerotic cardiovascular disease Surgical History History of inguinal hernia repair, bilateral (~2018) History of skin surgery History of arthroscopic surgery of shoulder (~2009) History of carpal tunnel release History of bladder surgery History of thumb surgery History of tubal ligation History of total hysterectomy Family History Father No problems noted. Mother No problems noted. Brother Stroke Social History Housing: Other Housing Other:: mobile home Are you a primary hiv/aids care nurse to a significant other at home: No Do you presently have visiting nurse or other home services: Yes (VNA) Patient Tobacco Use Status: Current everyday Tobacco user Tobacco use type: Cigarette Cigarettes Per Day: 0.5 Years Smoked: 68 e-Cigarette/Vaping Use: Never Used Second Hand Smoke Exposure: Yes Advance Directives Date on File: 12/20/18 Current occupational status: retired and disabled Cognitive needs: No Hearing needs: No Vision needs: No Review of Systems Const All systems reviewed & are unremarkable except as noted in HPI and below Eyes Reports no additional complaints ENT Reports no additional complaints Card Denies chest pain and Reports irregular heart rhythm (Paroxysmal atrial fib) Resp Reports as per HPI GI Reports no additional complaints Reports no additional complaints Musc Reports back pain (Chronic, due to compression fractures) Skin/Breast Reports dry skin Neuro Reports memory loss (Minimal) Psych Reports anxiety (Controlled) and Reports memory loss (Minimal) Physical Exam Vital Signs: Last Vital Signs Pulse 90 03/09/23 14:25 BP 110/60 03/09/23 14:25 Pulse Ox 95 03/09/23 14:25 Oxygen Delivery Method Room Air 03/09/23 14:25 BMI result Body Mass Index 21.3 Const General: comfortable, no acute distress, alert and awake Orientation/consciousness: patient oriented x3 HEENT Head: Yes normal to inspection General nose exam: No nasal polyps present and No nasal discharge present Face and sinus: Yes sinuses nontender Mouth: oropharynx normal Throat: Yes posterior oropharynx normal Eyes General: appearance normal, both eyes and all related structures Neck Neck: Yes normal visual inspection, Yes no lymphadenopathy, Yes trachea midline and Yes no JVD Thyroid: Thyroid normal Chest Chest palpation & inspection: normal inspection of the chest, normal palpation of entire chest wall and no tenderness Resp Other: Percussion note hyper-resonant. Breath sounds are distant with prolonged expiratory phase, No wheezes or rhonchi are heard. Cardio Palpation: normal PMI Rate: regular rate Rhythm: regular rhythm Heart sounds: no gallops and no murmurs GI Palpation (GI): Soft to palpation, nontender, No hepatosplenomegaly present and no masses Auscultation: normal bowel sounds Back/Spine/Pelvis Thoracic/Lumbar Spine: thoracic and lumbar spine normal to inspection and thoraco-lumbar ROM limited Skin General skin exam: no rashes or lesions noted and dry skin Neuro General: patient oriented x3 and no focal motor deficits Cranial nerves: Yes CN's II-XII intact bilaterally Extrem General: Yes normal to inspection, Yes no clubbing, cyanosis or edema and Yes no calf tenderness Psych Appearance: grossly normal and well kempt Speech and movement: Normal speech and movement present Results Reviewed Results Reviewed: Patient had overnight oximetry recording on 09/23--09/24 O2 sat below 88% for 1 hour and 51 minute Assessment & Plan Assessment & Plan (1) COPD (chronic obstructive pulmonary disease): Comment: Has history of chronic obstructive pulmonary disease for the past many years, a relatively stable. Mostly , stable but having increased cough and congested feeling since she started smoking again. [place] : I counseled her strongly that she should quit smoking completely. Continue Flovent-110 2 puffs b.i.d.. ProAir 2 puffs Q 4-6 hours p.r.n.. Albuterol solution in the nebulizer, Q 4-6 hours p.r.n., do not use ProAir and albuterol updraft at the same time. Code(s): J44.9 - Chronic obstructive pulmonary disease, unspecified (2) Personal history of nicotine dependence: Comment: (onset 9yo, x 67yrs, max 1ppd, now <1/2ppd - 50+PYH) Patient is participating in Annual lung screening program. [place] : Talked to her at length about smoking, try to convince her to quit smoking. Offered script for nicotine patch but she does not want to use it. She did promise to me that she is going to cut down the number by half, and hopefully in the next 6 months will be able. to quit completely Code(s): Z87.891 - Personal history of nicotine dependence (3) Nocturnal hypoxemia: Comment: Overnight oximetry recording on 09/23/182022, recorded O2 sat below 88% for 1 hour 51 minutes. She remains on O2 2 L/minute at night. On her last visit she had 6 minutes walk test. And did not qualify for daytime oxygen Code(s): G47.34 - Idiopathic sleep related nonobstructive alveolar hypoventilation Coding Level of Care Code Est Pt Level 3 (41354) Diagnoses COPD (chronic obstructive pulmonary disease) J44.9 Personal history of nicotine dependence Z87.891 Nocturnal hypoxemia G47.34
[2023-03-09 14:25] VITALS: BP 110/60; PULSE 90; O2SAT 95; BMI 21.3
== END 2023-03-09 14:54 | disposition home or self-care (01) ==
PROVIDERS: PCP Nurse Practitioner Family; Visit Provider Internal Medicine
DX: J44.9 Chronic obstructive pulmonary disease, unspecified (principal); Z87.891 Personal history of nicotine dependence; G47.34 Idiopathic sleep related nonobstructive alveolar hypoventilation
CPT/HCPCS: 99213

== ENCOUNTER → 2023-03-09 14:19 | Outpatient (BNVA) | payer OTHER, SELFPAY | PROVIDERS: Visit Provider Internal Medicine | DX: J44.9 Chronic obstructive pulmonary disease, unspecified (principal); G47.34 Idiopathic sleep related nonobstructive alveolar hypoventilation; F17.210 Nicotine dependence, cigarettes, uncomplicated; Z99.81 Dependence on supplemental oxygen | CPT/HCPCS: 99212 ==

== ENCOUNTER 2023-03-12 09:34 | Outpatient (AMB) | payer OTHER, SELFPAY ==
--- NOTE | 2023-03-12 09:35 | MHC.OFFVIS ---
Intake Vital Signs 03/12/23 09:44 Height 5 ft Weight 110 lb 6 oz BMI 21.6 BP 102/62 Blood Pressure Location Rt brachial Position Sitting Respiration 14 Pulse 98 Pulse Source Pulse Oximeter Pulse Oximetry (%) 95 Oxygen Delivery Method Room Air Intake Visit Reasons: S/p NEVRO SCS Implant 02/27/23 Intake Note: patient comes in for s/p Nevro SCS Implant 02/27/23. Allergies Cephalosporins [CEPHALOSPORINS] Allergy (Unknown, Verified 03/12/23 09:47) UNKNOWN clonidine [CLONIDINE] Allergy (Unknown, Verified 03/12/23 09:47) UNKNOWN gabapentin [GABAPENTIN] Allergy (Unknown, Verified 03/12/23 09:47) UNKNOWN mirtazapine [From REMERON] Allergy (Unknown, Verified 03/12/23 09:47) UNKNOWN naproxen Allergy (Unknown, Verified 03/12/23 09:47) UNKNOWN tramadol Allergy (Unknown, Verified 03/12/23 09:47) UNKNOWN bupropion [From WELLBUTRIN] Adverse Reaction (Unknown, Verified 03/12/23 09:47) Shaky HPI HPI Comments History of Present Illness Details Tova is in the office today S/p implantation of the SCS Nevro on 02/27/23. She reports strong postoperative pain syndrome which interferes with her perception of the SCS function. The devise is on minimal power now. She continues to take oral opioids for postoperative pain. The dressing was removed: the wounds are clean, no redness, no pathological discharge, minimal tenderness on palpation, minimal swelling is detected with small area of the skin excoriation at lower wound at her buttock The madonna were removed today and the edges of the skin are competent. Decided not to charge the device today, bicitracin ointment applied. We will wait for one more week with the charge, I will schedule her for the nursing wisit in one one week - we will charge it at that time provided there is no complications at the wounds sites. Trial of the SCS Nevro with good results in September of 2022. Prior: Right L5-S1 interlaminar PADMINI with Dr. Mena on 11/19/21. Tova is 77 years old female who is suffering from degenerative disc disease with radiculopathy, chronic syndrome, spondylosis of lumbar spine. She has axial lower back pain with radiation into lower extremities. She received epidural steroid injections in the past with less than initial results according to the patient's. She wants some permanent pain improvement. She was offered Nevro SCS, she went for psychological evaluation and she was approved for trial procedure. New appointment is after the trial. came to the office for the follow-up after epidural steroid injection it was done L5-S1 epidural steroid injection on the premise that she received multiple epidural steroid injections in the past.? Today she insisted that those epidural steroid injections never worked.? She is interested in some permanent solutions of her procedure.? We discussed Nevro spinal cord stimulator.? I explained to the patient psychological evaluation.? She signed the consent for psych evaluation.? Unfortunately the brochure for never SCS was not today in the office and we will mail these brochure to her as soon as it is available for us.? Because the psychological evaluation is being backed up I will schedule appointment this patient with me in 2 months. Patient is a pleasant 76 years old female presents today for initial evaluation of chronic ?whole body pain? and chronic right lumbar radiculopathy that has been progressively worsening over the last year. She presents in significant distress due to lumbar pain especially with bending forward and flexion and limited extension. Denies trauma, injury or falls but reports few years ago her back was hurting significantly after heavy snow shoveling. Patient reports her back pain travels upward and also radiates to her right hip, right buttocks, and down into her right lower leg laterally to the ankle with mild numbness and tingling. Pain described as constant aching, stabbing, sharp, tiring, and exhausting. It interferes with her daily activities, functioning and sleep. Patient was previously followed by Dr. Baker in [place] for pain management and received multiple therapeutic injections, last injection on 03/13/20 bilateral L5-S1 lumbar PADMINI with good results. Per old records review, the patient was also referred to Dr. Stone at [facility] on 09/2018 for disc herniations and nerve compression. Patient denies previous back surgery. She has a history of recurrent spinal fractures, L1 and L2 stable compression fractures and L4 compression fracture has not yet healed. Patient was evaluated by [facility] vascular services for possible kyphoplasty on 05/2019 but reports it has not been done. She is a chronic current everyday smoker with a 50+ pack years, now at 5-7 cig/day and marijuana use. Patient reports she has been losing weight of 30 lbs in about 5-6 months, with decreased appetite due to constant pain. 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 Patient reports she feels fatigued with low energy levels all the time, and was recommended to drink Ensure. She reports being diagnosed with fibromyalgia a long time ago. Denies any fever, malaise, abdominal or groin pain, dizziness, chest pain, bladder/bowel dysfunction or saddle anesthesia. She reports intermittent weakness and ambulates with antalgic gate and use of cane. She also tried gabapentin which has not been helpful. No previous physical therapy done and patient currently unable to participate in formal PT due to significant pain and her current condition. Recent lumbar MRI is noted below, with significant advancement of multilevel disc bulging and facet arthropathy, multilevel bilateral neural foraminal stenosis, mild to moderate compression fracture L1, L2, and L4. Since the previous study, there has been approximately 40-50% loss of height of the L4 vertebral body, consistent with a compression fracture, which appears incompletely healed. Mild right subarticular recess stenosis at L4-L5 on and [id number] left subarticular recess stenosis at L3-L4 and no central spinal canal stenosis, grade 1 degenerative spondylolisthesis at L5-S1. Moderate to severe right-sided neural foraminal stenosis and moderate left-sided neural foraminal stenosis have progressed from previous study, with right L5 nerve root impingement progressed.? I will send medical records release requests to [facility] vascular Dr. Dugan last evaluation report with spine fluoroscopy for kyphoplasty and [facility] neurosurgeon Dr. Stone for surgical evaluation for back surgery in 2019. Patient with extensive cardiac history, has been on Xarelto to maintain her sinus rhythm with a history of atrial fibrillation due COPD exacerbation.?She is interested to repeat lumbar ESIs as well as non-opioid medical management to alleviate her pain. [facility] Medical History (Updated 03/09/23 @ 15:02 by Satinder Granados MD) Nocturnal hypoxemia Basal cell carcinoma History of COVID-19 (~06/2021) Personal history of nicotine dependence Osteopenia (~2009) History of non-ST elevation myocardial infarction (NSTEMI) (~04/2016) COPD (chronic obstructive pulmonary disease) Depression with anxiety Brain aneurysm Bilateral carotid artery stenosis PAF (paroxysmal atrial fibrillation) (~04/2016) Atherosclerotic cardiovascular disease Surgical History History of inguinal hernia repair, bilateral (~2018) History of skin surgery History of arthroscopic surgery of shoulder (~2009) History of carpal tunnel release History of bladder surgery History of thumb surgery History of tubal ligation History of total hysterectomy Family History Father No problems noted. Mother No problems noted. Brother Stroke Social History Housing: Other Housing Other:: mobile home Are you a primary resident care spec to a significant other at home: No Do you presently have visiting nurse or other home services: Yes ([facility]) Patient Tobacco Use Status: Current everyday Tobacco user Tobacco use type: Cigarette Cigarettes Per Day: 0.5 Years Smoked: 68 e-Cigarette/Vaping Use: Never Used Second Hand Smoke Exposure: Yes Advance Directives Date on File: 12/20/18 Current occupational status: retired and disabled Cognitive needs: No Hearing needs: No Vision needs: No Review of Systems Const All systems reviewed & are unremarkable except as noted in HPI and below ENT Reports Normal hearing present Neuro Reports Normal hearing present and Denies Sensory deficit (Neuro) Physical Exam Vital Signs: Last Vital Signs Pulse 98 03/12/23 09:44 Resp 14 03/12/23 09:44 BP 102/62 03/12/23 09:44 Pulse Ox 95 03/12/23 09:44 Oxygen Delivery Method Room Air 03/12/23 09:44 BMI result Body Mass Index 21.6 Const General: cooperative and healthy appearing Nutritional Appearance: well nourished Orientation/consciousness: patient oriented x3 Limitations: no limitations HEENT Head: Yes normal to inspection Ears: hearing grossly normal bilaterally and external ears normal Face and sinus: Yes normal facial exam and Yes face symmetric Eyes Other: Right and left eye: Bulbar conjunctiva is congested. Resp Effort & Inspection: normal respiratory effort, able to speak in complete sentences, normal respiratory pattern, no audible wheezes, no cough and respiratory effort not decreased Cardio Jugular venous distension: no JVD GI Inspection: Yes normal to inspection Palpation (GI): Soft to palpation General: Yes no CVA tenderness Back/Spine/Pelvis Other: Patient is able to walk on heels and tip toes with cane and mild difficulty. Back extension and forward flexion easily reproduces patient's severe lower back pain. Demonstrates 4/5 strength of quadriceps bilaterally as well as flexion/dorsiflexion of bilateral feet against resistance. Significant TTP in projection of the bilateral SIJ. Jose Miguel test and Stinchfield test resulted in significant pain in the projection SIJ bilaterally. Unable to perform further testing due to exacerbation in pain. Bilateral groin pain with hip internal and external rotations. Back: no CVA tenderness Skin General skin exam: no rashes or lesions noted and dry skin Neuro General: patient oriented x3 Cranial nerves: Yes Normal hearing present Cognition (Neuro): normal cognition Gait exam (Neuro): Antalgic gait present and No Assistive device used Motor exam (neuro): no tremor noted Sensory Exam: No Sensory deficit (Neuro) Deep tendon reflexes (DTR's): Right patellar reflex intensity grade: 1+, Left patellar reflex intensity grade: 1+, Right ankle reflex intensity grade: 1+ and Left ankle reflex intensity grade: 1+ Coordination: Romberg test negative Extrem General: Yes full ROM, Yes capillary refill normal, Yes no clubbing, cyanosis or edema and Yes no calf tenderness Psych Appearance: grossly normal Mental Status: mental status grossly normal Speech and movement: Clear speech present Affect: normal affect Attitude: cooperative Thought process: Normal thought process present Thought content: Normal thought content present, suicidality, no hallucinations and No Depressive thoughts present Insight: Good insight present (Psych) Judgement: Good judgement present (Psych) Assessment & Plan Assessment & Plan (1) Fibromyalgia: Code(s): M79.7 - Fibromyalgia (2) Lumbar radiculopathy: Code(s): M54.16 - Radiculopathy, lumbar region (3) Lumbar degenerative disc disease: Code(s): M51.36 - Other intervertebral disc degeneration, lumbar region (4) Chronic back pain: Code(s): M54.9 - Dorsalgia, unspecified; G89.29 - Other chronic pain (5) Chronic pain syndrome: Code(s): G89.4 - Chronic pain syndrome (6) History of vertebral compression fracture: Code(s): Z87.81 - Personal history of (healed) traumatic fracture (7) Arthritis of left hip: Code(s): M16.12 - Unilateral primary osteoarthritis, left hip Plan Right L5-S1 interlaminar PADMINI 11/19/21 w resulted in pain aggravation. Patient has combination of axial lumbar and thoracic back pain and radiation of the pain into right lower extremity. She has significant osteoporosis. She is also on Xarelto which her contract clerk allows her to stop provided that she understands that it will slightly increase the risk of stroke for her. trial of SCS Nevro. She reports 80% pain relief on her lower back pain with radiation into the right lower extremity however the pain in the axial sacral and coccygeal spine remains untouched by the stimulation. Also reports no pain improvement on the left hip pain with radiation into the left groin. She was not decisive whether not she wants the permanent implant of Nevro SCS. Eventually she thought that the partial cover of pain is better than none and decided to go for the SCS Nevro implant. Dressing change today as above - the machine is still on minimal power now.[place] removed as above. Decided to wait for 1 more week with the full charge of the device due to minimal wound changes as above. Next week nursing appointment- if everything is healed OK - we will charge the devise and start it at the full power. Coding Level of Care Code Est Pt Level 4 (43667) Diagnoses Fibromyalgia M79.7 Lumbar radiculopathy M54.16 Lumbar degenerative disc disease M51.36 Chronic back pain M54.9; G89.29 Chronic pain syndrome G89.4 History of vertebral compression fracture Z87.81 Arthritis of left hip M16.12
[2023-03-12 09:44] VITALS: BP 102/62; PULSE 98; RESP 14; O2SAT 95; BMI 21.6
== END 2023-03-12 09:56 | disposition home or self-care (01) ==
PROVIDERS: PCP Nurse Practitioner Family; Visit Provider Anesthesiology
DX: M79.7 Fibromyalgia (principal); M54.16 Radiculopathy, lumbar region; M51.36 Other intervertebral disc degeneration, lumbar region; M54.9 Dorsalgia, unspecified; G89.29 Other chronic pain; G89.4 Chronic pain syndrome; Z87.81 Personal history of (healed) traumatic fracture; M16.12 Unilateral primary osteoarthritis, left hip
CPT/HCPCS: 99214

== ENCOUNTER → 2023-03-12 09:34 | Outpatient (BNVA) | payer OTHER, SELFPAY | PROVIDERS: PCP Nurse Practitioner Family; Visit Provider Anesthesiology | DX: M16.12 Unilateral primary osteoarthritis, left hip (principal); M79.7 Fibromyalgia; M54.16 Radiculopathy, lumbar region; M51.36 Other intervertebral disc degeneration, lumbar region; M54.9 Dorsalgia, unspecified; G89.4 Chronic pain syndrome; Z87.81 Personal history of (healed) traumatic fracture | CPT/HCPCS: 99212 ==

== ENCOUNTER → 2023-03-18 11:05 | Outpatient (BNVA) | payer OTHER, SELFPAY | PROVIDERS: PCP Nurse Practitioner Family; Visit Provider Anesthesiology | DX: Z48.00 Encounter for change or removal of nonsurgical wound dressing (principal); Z96.82 Presence of neurostimulator | CPT/HCPCS: 99211 ==

== ENCOUNTER 2023-04-07 14:25 | Outpatient (REF) | payer OTHER, SELFPAY ==
[2023-04-07 16:26] LABS: Appearance Urine Clear; Color Urine Orange; Glucose Urine UA 100 mg/dL (Negative); Leukocyte Esterase Urine Trace (Negative); Nitrite Urine Positive (Negative); UMIC TRIGGER UACC YES; Urine Blood Trace (Negative); Urine Ketones Trace mg/dL (Negative); Urine Protein 100 (2+) mg/dL (Neg-Trace)
[2023-04-07 17:14] LABS: Bacteria Urine None Seen (None Seen); Calcium Oxalate Crystals Urine Present; Hyaline Casts Urine 0-2 /LPF (0-2); RBC Urine 0-2 /HPF (0-2); Squamous Epithelial Cell Urine 0-2 /HPF (0-2); UACC Culture Trigger YES; WBC Urine 0-5 /HPF (0-5)
== END 2023-04-07 14:26 | disposition home or self-care (01) ==
LOC: HO.HMGCLDS 14:25
PROVIDERS: PCP Nurse Practitioner Family; Visit Provider Nurse Practitioner Family
DX: R30.0 Dysuria (principal)
CPT/HCPCS: 81001; 81003; 87086

== ENCOUNTER 2023-06-04 13:40 | Emergency (ER) | payer OTHER, SELFPAY ==
--- OUTSIDE RECORDS SUMMARY | 2023-06-04 15:55 | XMS_ITS | Patient Health Record ---
Author Name Unknown [facility] Address [address] [facility] [place] [address] Care Team Providers Care Service Associate Name Role Phone Jung Randhawa Primary Care Provider Unav Mireya Khan Unavailable [phone] ALLERGIES Allergen (clinical drug ingredient) Drug/Non Drug Allergy documented on EMR Reaction Allergy Type Onset Date Status Medicinal cephalosporin and acting as antibacterial agent (FN) Cephalosporin (uncoded) Unknown Allergy Active bupropion BuPROPion HCl Unknown Drug Allergy Act cordell gabapentin Gabapentin Unknown Drug Allergy Activ e mirtazapine Mirtazapine Unknown Drug Allergy Act cordell naproxen Naproxen Unknown Drug Allergy Active mirtazapine Remeron Unknown Drug Allergy Activ e tramadol Tramadol HCl Unknown Drug Allergy Acti ve clonidine CloNIDine Unknown Drug Allergy Active REASON FOR REFERRAL No Information MEDICATIONS Medication SIG (Take, Route, Frequency, Duration) Notes Start Date End Date Status dilTIAZem HCl 120 MG as directed Orally Active Xarelto 10 MG 1 tablet with food O rally Once a day for 30 day(s) Active Multi For Her - as directed Orally Active Walking Boot/Pneumatic As directed Wear Daily for Until further notice 12/06/2019 Active Vitamin D3 Active traZODone HCl 150 MG 1 tablet at bedtime Orally Once a day for 30 day(s) Active clonazePAM 0.5 MG 1 tablet at bedtime Orally Once a day Active Cetirizine HCl 10 MG 1 tablet Orally Onc e a day for 30 day(s) Active Atorvastatin Calcium 40 MG 1 tablet Oral ly Once a day for 30 day(s) Active SOCIAL HISTORY Tobacco Use: Social History Observation Description Date Details (start date - stop date) Current Smoker NA - NA Sex Assigned At : Social History Observation Description Sex Assigned At Unknown Tobacco Use/Smoking Question Answer Notes Are you a: current smoker How many cigarettes a day do you smoke? 6-10 Alcohol Screen Question Answer Notes Did you have a drink containing alcohol in the p ast year? No Points 0 Interpretation Negative Tobacco use other than smoking: Question Answer Notes Are you an other tobacco user? No VITAL SIGNS Blood pressure diastolic 60 mm Hg 12/12/2022 Height 5 ft in 04/07/2023 Blood pressure systolic 120 mm Hg 12/12/2022 Weight 109 lbs 04/07/2023 BMI 21.29 kg/m2 04/07/2023 Encounters Encounter Location Date Provider Diagnosis [facility] [address] 10/01/2022 Mireya Darby [facility] [address] 12/12/2022 Mireya Perica Fungal infection of nail B35.1 ; Pain of toe of right foot M79.674 and Pain of toe of left foot M79.[address] [address] 03/17/2023 Mireya Darby [facility] [address] 04/07/2023 Mireya Perica Fungal infection of nail B35.1 ; Pain of toe of right foot M79.674 and Pain of toe of left foot M79.675 ASSESSMENTS Encounter Date Diagnosis Assessment Notes Treatment Notes Treatment Clinical Notes 12/12/2022 Pain of toe of right foot (ICD-10 - M79.674) 12/12/2022 Fungal infection of nail (ICD-10 - B35.1) 04/07/2023 Pain of toe of right foot (ICD-10 - M79.674) 04/07/2023 Fungal infection of nail (ICD-10 - B35.1) 04/07/2023 Pain of toe of left foot (ICD-10 - M79.675) 12/12/2022 Pain of toe of left foot (ICD-10 - M79.675) PLAN OF TREATMENT Pending Test Test Name Order Date X ray : Foot, left 3V 12/06/2019 X ray : Foot, left 3V 11/29/2019 [id number] Unna Boot 11/29/2019 Next Appt Details Provider Name:Mireya Suzanne castillo, 06/30/2023 02:00:00 PM, [address] [place], [address], Insurance Providers Payer Name Payer Address Payer Phone Subscriber Number Group Number Insured Name Patient Relationship to Insured Coverage Start Date Coverage End Date [facility] [employer] Claims [address] [place] [address] [id number] Tova Lopez Self - patient is the insured MEDICAL (GENERAL) HISTORY Medical History History ICD Code Anxiety Arthritis asthma Cancer Fibromyalgia Heart disease Hepatitis C COPD Osteoporosis Sciatica Warts Measles Surgical History Surgery Date(Month/Year) hysterectomy Hernia Repair X2 tubal ligation cancer surgery- nose and leg carpal tunnel surgery
== END 2023-06-04 16:24 | disposition left against medical advice (07) ==
LOC: HO.ED 15:54
PROVIDERS: Emergency Provider Emergency Medicine; PCP Nurse Practitioner Family
DX: R06.02 Shortness of breath (principal)

== ENCOUNTER 2023-06-05 12:39 | Emergency (ER) | payer OTHER, SELFPAY ==
--- NOTE | ~2023-06-05 | XR_ITS ---
EXAMINATION: XR CHEST CLINICAL INFORMATION: Left lower lobe bronchi COMPARISON: July 02, [address] scan of August 13, 2021 TECHNIQUE: 2 views of the chest were obtained. FINDINGS: No significant abnormality is noted involving the heart, lungs, mediastinum, bony thorax or soft tissues. Spinal stimulator wires seen with tip at the level of the T6-T7 disc space. There is a focal bulge anteriorly of the distal thoracic aorta which was present on prior CT scan. Status post left shoulder surgery. XR/XR chest 2V IMPRESSION: No acute disease.
--- NOTE | 2023-06-05 12:53 | ECG_ITS ---
Test Reason : chest tightness Blood Pressure : / mmHG Vent. Rate : 074 BPM Atrial Rate : 074 BPM P-R Int : 144 ms QRS Dur : 086 ms QT Int : 398 ms P-R-T Axes : 069 043 040 degrees QTc Int : 441 ms Artifact in tracing Normal sinus rhythm Possible Left atrial enlargement Borderline ECG When compared with ECG of 12-NOV-2018 14:31, No significant changes seen Referred By: Kamille Cox Electronically Signed By:BRISSA VAZQUEZ
--- NOTE | 2023-06-05 14:05 | ED_ITS ---
HPI - General Adult General Chief complaint: General Medical Stated complaint: Chest Tightness COPD Time Seen by Provider: 06/05/23 16:18 Source: patient Mode of arrival: ambulatory Limitations: no limitations History of Present Illness HPI narrative: 78-year-old female history of COPD, bronchitis hypertension, ACS presents to ED for coughing green phlegm, nasal congestion, head congestion and chills. Patient denies any chest pain or shortness of breath. Patient denies any pleurisy, leg swelling, calf pain, or coughing up blood. Patient states usually when she gets those episodes primary care provider gives her Z-Nigel and prednisone but she was not able to see her primary care provider today Related Data Home Medications Medication Instructions Recorded Confirmed clonazepam 0.5 mg tablet 0.5 mg PO TID PRN Anxiety 03/08/20 03/18/23 trazodone 150 mg tablet 150 mg PO BEDTIME 03/08/20 03/18/23 calcium carbonate 500 mg calcium 500 mg PO DAILY 05/15/22 03/18/23 (1,250 mg) chewable tablet (Calcium 500) Previous Rx's Medication Instructions Recorded pregabalin 50 mg capsule 50 mg PO BID 30 days #60 caps 11/21/21 lidocaine 5 % topical ointment 1 appl topical BEDTIME PRN pain 30 12/03/21 days #60 grams cholecalciferol (vitamin D3) 50 50 mcg PO ONCE 90 days #90 caps 07/12/22 mcg (2,000 unit) capsule Ensure #30 ea 09/23/22 diltiazem HCl 120 mg capsule,24 120 mg PO DAILY #30 caps 10/15/22 hr,extended release (Tiadylt ER) [id number]-[id number]-nhppqoyv 3.5 1 drp ophthalmic (eye) Q12H #5 mL 01/13/23 mg/mL-10,000 unit/mL-0.1% eye drops ofloxacin 0.3 % eye drops 2 drp ophthalmic (eye) QID #10 mL 02/19/23 clindamycin HCl 300 mg capsule 300 mg PO Q6H 14 days #56 caps 02/27/23 albuterol sulfate 2.5 mg/3 mL 2.5 mg (3 mL) inhalation TID #180 03/28/23 (0.083 %) solution for nebulization mL albuterol sulfate 90 mcg/actuation 2 puff PO Q6H PRN bronchospasm 30 03/28/23 aerosol inhaler days #8.5 grams cetirizine 10 mg tablet 5 mg (1/2 x 10 mg) PO DAILY PRN 03/28/23 for allergies 90 days #45 tabs fluticasone propionate 110 1 puff inhalation BID #36 grams 03/28/23 mcg/actuation HFA aerosol inhaler (Flovent HFA) atorvastatin 40 mg tablet 40 mg PO DAILY #90 tabs 03/30/23 rivaroxaban 20 mg tablet (Xarelto) 20 mg PO DAILY 90 days #90 tabs 03/30/23 memantine 5 mg tablet (Namenda) 5 mg PO QAM #90 tabs 04/02/23 sulfamethoxazole 800 1 tab PO BID 3 days #6 tabs 04/08/23 mg-trimethoprim 160 mg tablet (Bactrim DS) azithromycin 250 mg tablet See Rx Instructions PO .COMPLEX #6 06/05/23 tabs prednisone 20 mg tablet 40 mg (2 x 20 mg) PO DAILY 5 days 06/05/23 #10 tabs Allergies Allergy/AdvReac Type Severity Reaction Status Date / Time Cephalosporins Allergy Unknown UNKNOWN Verified 06/05/23 14:06 [CEPHALOSPORINS] clonidine [CLONIDINE] Allergy Unknown UNKNOWN Verified 06/05/23 14:06 gabapentin [GABAPENTIN] Allergy Unknown UNKNOWN Verified 06/05/23 14:06 mirtazapine [From REMERON] Allergy Unknown UNKNOWN Verified 06/05/23 14:06 naproxen Allergy Unknown UNKNOWN Verified 06/05/23 14:06 tramadol Allergy Unknown UNKNOWN Verified 06/05/23 14:06 bupropion [From WELLBUTRIN] AdvReac Unknown Shaky Verified 06/05/23 14:06 Review of Systems Review of Systems: nasal congestion, head congestion, coughing up green phlegh, chills Yes all other systems are reviewed and are negative [facility], [facility] Past Medical History Medical History (Updated 06/05/23 @ 16:55 by ALVA Rios) Nocturnal hypoxemia Basal cell carcinoma History of COVID-19 (~06/2021) Personal history of nicotine dependence Osteopenia (~2009) History of non-ST elevation myocardial infarction (NSTEMI) (~04/2016) COPD (chronic obstructive pulmonary disease) Depression with anxiety Brain aneurysm Bilateral carotid artery stenosis PAF (paroxysmal atrial fibrillation) (~04/2016) Atherosclerotic cardiovascular disease Surgical History History of inguinal hernia repair, bilateral (~2018) History of skin surgery History of arthroscopic surgery of shoulder (~2009) History of carpal tunnel release History of bladder surgery History of thumb surgery History of tubal ligation History of total hysterectomy Family History Family History Father No problems noted. Mother No problems noted. Brother Stroke Social History Social History Housing: Other Housing Other:: mobile home Are you a primary wound care nurse to a significant other at home: No Do you presently have visiting nurse or other home services: Yes (VNA) Patient Tobacco Use Status: Current everyday Tobacco user Tobacco use type: Cigarette Cigarettes Per Day: 0.5 Years Smoked: 68 e-Cigarette/Vaping Use: Never Used Second Hand Smoke Exposure: Yes Advance Directives: Yes Advance Directives Information Provided: No Advance Directives on File: No Advance Directives Date on File: 12/20/18 Current occupational status: retired and disabled Cognitive needs: No Hearing needs: No Vision needs: No Physical Exam ED Vital Signs: Vital Signs - 24 hr 06/05/23 14:07 06/05/23 16:26 06/05/23 16:56 Temperature 98.2 F 98.1 F Pulse Rate 70 72 87 Respiratory Rate 18 18 19 Blood Pressure 132/61 134/63 Pulse Oximetry 95 97 95 Oxygen Delivery Method Room Air Room Air BMI result Body Mass Index 21.5 Const General: cooperative, healthy appearing, comfortable, no acute distress, well developed and alert Orientation/consciousness: oriented to person, oriented to place, oriented to time and patient oriented x3 HENMT Head: Yes normal to inspection, Yes No palpable skull fracture present, Yes normocephalic and Yes atraumatic Throat: Yes posterior oropharynx normal, Yes tonsils normal and Yes uvula midline Eyes General: appearance normal, both eyes and all related structures Neck Neck: Yes normal visual inspection, Yes full ROM, Yes no lymphadenopathy, Yes no meningeal signs, Yes trachea midline, Yes supple, No anterior neck swelling and No tender Chest Chest palpation & inspection: normal inspection of the chest and normal palpation of entire chest wall Resp Effort & Inspection: normal respiratory effort and able to speak in complete sentences Auscultation: wheezes expiratory wheezes (mild) Cardio Jugular venous distension: no JVD Heart sounds: S1 normal heart sound present and S2 normal heart sound present GI Inspection: Yes normal to inspection Palpation (GI): Soft to palpation, not firm, nontender, no guarding and not rigid General: Yes no CVA tenderness Back/Spine/Pelvis Back: no CVA tenderness and No back tenderness Skin General skin exam: no rashes or lesions noted, elasticity normal and turgor normal Neuro General: oriented to person, oriented to place, oriented to time, patient oriented x3, gait normal, tone normal, moves all extremities, Normal light touch and pain sensation, no meningeal signs, no focal motor deficits, CN's II-XI intact bilaterally and normal sensation to monofilament Extrem Other: bilateral lower extremity negative for swelling, pitting edema, or calf tenderness. General: Yes normal to inspection and Yes full ROM Psych Appearance: grossly normal, well kempt and not disheveled Course Course Course Narrative: This is a rapid medical exam: Additional HPI, ROS, PE not included below will be deferred to primary provider. Patient is a 78-year-old female with history of COPD, NSTEMI, brain aneurism, carotid artery stenosis, paroxysmal afib presenting to the ED with complaint of nasal congestion for the past 5 days. Reports history of COPD and states PCP typically prescribes a z pack and prednisone with cold symptoms. Denies fevers, chest pain, palpitations. Left lower lobe rhonchi noted in triage. Plan: viral swabs and CXR Medical Decision Making Medical Decision Making MDM Narrative: 78-year-old female Past medical history of bronchitis, COPD, hypertension presents to the ED for coughing, green phlegm, body aches, nasal congestion, head congestion, and chills with body aches. patient denies any chest pain or shortness of breath. Patient well-appearing. Patient requesting antibiotics steroids to treat her bronchitis which is a usual treatment from primary care provider. EKG negative STEMI. SARs negative. Chest x-ray negative pneumonia. not suspecting myocardial infarction. Not suspect of hear tfailure. not suspecting PE. patient informed to stop smoking. NO need for labs. Differential Diagnosis Differential Diagnoses: The differential diagnosis associated with the presentation includes ( COVID, RSV, influenza, pneumonia, bronchitis, COPD) Admission/Observation Consideration of admission/observation: Escalation of care including admission/observation considered Lab Data MDM Lab Attestation statement: I reviewed the patient's lab results. Labs: Lab Results 06/05/23 Range/Units 15:06 Influenza Type A (PCR) NEGATIVE (Negative) Influenza Type B (PCR) NEGATIVE (Negative) RSV RNA Qual (PCR) NEGATIVE (Negative) SARS-CoV-2 RNA (RT-PCR) NEGATIVE (Negative) Independent Interpretation I performed an independent interpretation of an: Plain X-Ray Radiology Impression Discussion of test interpretation with radiology: I have reviewed the radiologist's reading. External Record Review External record reviewed: Other ( prior visit) Prescription Management I considered prescription management with: Antibiotic and Other (Steroids) Discharge Plan Discharge Clinical Impression: Bronchitis Patient Disposition: Home, Self-Care Instructions: Acute Bronchitis (ED) Additional Instructions: return to ED immediately for chest pain, shortness of breath, coughing up blood, leg swelling, calf pain, chest pain on inspiration, or any other conc erning symptoms. Please follow-up with the primary care provider. Use albuterol inhaler / nebulizer as needed Prescriptions: New prednisone 20 mg tablet 40 mg PO DAILY 5 Days Qty: 10 0RF azithromycin 250 mg tablet See Rx Instructions .ROUTE .COMPLEX Qty: 6 0RF Rx Instructions: For 250 mg dose pack: take 500 mg today (day 1), then 250 mg for 4 days (days 2-5) No Action pregabalin 50 mg capsule 50 mg PO BID 30 Days Qty: 60 0RF cholecalciferol (vitamin D3) 50 mcg (2,000 unit) capsule 50 mcg PO ONCE 90 Days Qty: 90 1RF (DME) Ensure See Rx Instructions .Route .MEDSUPPLY Qty: 30 11RF Rx Instructions: [facility] [employer] Straw[facility] to [facility] Attn: Angela Bowman FAX [phone] tel [phone] ext [phone] diltiazem HCl [Tiadylt ER] 120 mg capsule,extended release 24 hr 120 mg PO DAILY Qty: 30 0RF Rx Instructions: OVERDUE FOR APPT. PLEASE CALL [phone] TO SCHEDULE FOLLOW UP FOR 2022 SO WE CAN CONTINUE REFILLING. albuterol sulfate 90 mcg/actuation HFA aerosol inhaler 2 puff PO Q6H PRN (Reason: bronchospasm) 30 Days Qty: 8.5 3RF albuterol sulfate 2.5 mg /3 mL (0.083 %) solution for nebulization 2.5 mg inhalation TID Qty: 180 3RF cetirizine 10 mg tablet 5 mg PO DAILY PRN (Reason: for allergies) 90 Days Qty: 45 1RF Flovent HFA 110 mcg/actuation HFA aerosol inhaler 1 puff inhalation BID Qty: 36 1RF Xarelto 20 mg tablet 20 mg PO DAILY 90 Days Qty: 90 3RF atorvastatin 40 mg tablet 40 mg PO DAILY Qty: 90 3RF memantine [Namenda] 5 mg tablet 5 mg PO QAM Qty: 90 1RF sulfamethoxazole-trimethoprim [Bactrim DS] 800-160 mg tablet 1 tab PO BID 3 Days Qty: 6 0RF clindamycin HCl 300 mg capsule 300 mg PO Q6H 14 Days Qty: 56 1RF Rx Instructions: Take probiotics OTC 25 billion cultures in between the doses of the antibiotics. neomycin-polymyxin B-dexameth 3.5mg/mL-10,000 unit/mL-0.1 % drops,suspension 1 drp ophthalmic (eye) Q12H Qty: 5 0RF Rx Instructions: Apply 1 drop to each eye every 12 hours for the next 7 days. ofloxacin 0.3 % drops 2 drp ophthalmic (eye) QID Qty: 10 0RF lidocaine 5 % ointment 1 appl topical BEDTIME PRN (Reason: pain) 30 Days Qty: 60 0RF calcium carbonate [Calcium 500] 500 mg calcium (1,250 mg) tablet,chewable 500 mg PO DAILY trazodone 150 mg tablet 150 mg PO BEDTIME clonazepam 0.5 mg tablet 0.5 mg PO TID PRN (Reason: Anxiety) Interventions: ED Discharge Assessment Last Done: 06/05/23 17:01 Discharge Date/Time: 06/05/23 17:01 Print Language: Samoan
[2023-06-05 14:07] VITALS: BP 132/61; PULSE 70; RESP 18; TEMP 36.8; O2SAT 95; BMI 21.5
[2023-06-05 16:09] LABS: Influenza A PCR NEGATIVE (Negative); Influenza B PCR NEGATIVE (Negative); Resp Syncy Virus RNA Qual PCR NEGATIVE (Negative); SARS COV2 PCR INHOUSE NEGATIVE (Negative)
[2023-06-05 16:26] VITALS: BP 134/63; PULSE 72; RESP 18; TEMP 36.7; O2SAT 97
[2023-06-05 16:56] VITALS: PULSE 87; RESP 19; O2SAT 95
== END 2023-06-05 17:01 | disposition home or self-care (01) ==
PROVIDERS: Registered Nurse Emergency; Emergency Provider Emergency Medicine; PCP Nurse Practitioner Family
DX: J40 Bronchitis, not specified as acute or chronic (principal); R07.89 Other chest pain; R05.9 Cough, unspecified; R09.81 Nasal congestion; J44.9 Chronic obstructive pulmonary disease, unspecified; I25.2 Old myocardial infarction; I48.0 Paroxysmal atrial fibrillation; Z20.822 Contact with and (suspected) exposure to COVID-19; Z20.828 Contact with and (suspected) exposure to other viral communicable diseases
CPT/HCPCS: 0241U; 71046; 93005; 99283; 99284

== ENCOUNTER → 2023-06-05 12:53 | Outpatient (BNV) | payer OTHER, SELFPAY | PROVIDERS: PCP Nurse Practitioner Family; Visit Provider Internal Medicine | DX: R07.89 Other chest pain (principal) | CPT/HCPCS: 93010 ==

== ENCOUNTER 2023-07-30 15:03 | Outpatient (AMB) | payer OTHER, SELFPAY ==
[2023-07-30 15:18] VITALS: BP 112/60; PULSE 113; TEMP 36.8; O2SAT 94; BMI 22.1
--- NOTE | 2023-07-30 15:18 | AM.OFFWIN_ITS ---
Intake Vital Signs 07/30/23 15:18 Height 5 ft Weight 113 lb 4 oz BMI 22.1 BP 112/60 Blood Pressure Location Rt brachial Position Sitting Pulse 113 H Pulse Source Pulse Oximeter Temp 98.3 F Temp Source Oral Pulse Oximetry (%) 94 Oxygen Delivery Method Room Air Intake Visit Reasons: EP cough congestion headache Intake Note: pt is here for c.o cough, congestion, headache Patient Tobacco Use Status: Current everyday Tobacco user Allergies Cephalosporins [CEPHALOSPORINS] Allergy (Unknown, Verified 07/30/23 15:20) UNKNOWN clonidine [CLONIDINE] Allergy (Unknown, Verified 07/30/23 15:20) UNKNOWN gabapentin [GABAPENTIN] Allergy (Unknown, Verified 07/30/23 15:20) UNKNOWN mirtazapine [From REMERON] Allergy (Unknown, Verified 07/30/23 15:20) UNKNOWN naproxen Allergy (Unknown, Verified 07/30/23 15:20) UNKNOWN tramadol Allergy (Unknown, Verified 07/30/23 15:20) UNKNOWN bupropion [From WELLBUTRIN] Adverse Reaction (Unknown, Verified 07/30/23 15:20) Shaky Do you need a note to return to daycare/school/sports/work: Yes HPI HPI Comments History of Present Illness Details 78 y/o female patient who presents to [facility] in clinic with c/o URI symptoms. [facility] Medical History (Updated 06/05/23 @ 16:55 by ALVA Rios) Nocturnal hypoxemia Basal cell carcinoma History of COVID-19 (~06/2021) Personal history of nicotine dependence Osteopenia (~2009) History of non-ST elevation myocardial infarction (NSTEMI) (~04/2016) COPD (chronic obstructive pulmonary disease) Depression with anxiety Brain aneurysm Bilateral carotid artery stenosis PAF (paroxysmal atrial fibrillation) (~04/2016) Atherosclerotic cardiovascular disease Surgical History History of inguinal hernia repair, bilateral (~2018) History of skin surgery History of arthroscopic surgery of shoulder (~2009) History of carpal tunnel release History of bladder surgery History of thumb surgery History of tubal ligation History of total hysterectomy Family History Father No problems noted. Mother No problems noted. Brother Stroke Social History Housing: Other Housing Other:: mobile home Are you a primary career development coordinator to a significant other at home: No Do you presently have visiting nurse or other home services: Yes (VNA) Patient Tobacco Use Status: Current everyday Tobacco user Tobacco use type: Cigarette Cigarettes Per Day: 0.5 Years Smoked: 68 e-Cigarette/Vaping Use: Never Used Second Hand Smoke Exposure: Yes Advance Directives Date on File: 12/20/18 Current occupational status: retired and disabled Cognitive needs: No Hearing needs: No Vision needs: No Physical Exam Vital Signs: Last Vital Signs Temp 98.3 F 07/30/23 15:18 Pulse 113 H 07/30/23 15:18 BP 112/60 07/30/23 15:18 Pulse Ox 94 07/30/23 15:18 Oxygen Delivery Method Room Air 07/30/23 15:18 BMI result Body Mass Index 22.1 Office Procedures Nebulizer Treatment Nebulizer Treatment 47200-[id number]/MDI RX initial, or Nebulizer Subsequent Treatment Office Meds ipratropium 0.5 mg-albuterol 3 mg (2.5 mg base)/3 mL nebulization soln Performing Provider: Melodie Go NP Performing Location: [facility] Administered by: Aylin Higuera RN on 07/30/23 15:57 Dose Route Admin Location Dispensed Lot Number Expiration Date [employer] Shield Installer 3 mL inhalation 3 mL [id number] 03/08/24 6348-5259-60 [facility] Assessment & Plan Assessment & Plan (1) Upper respiratory infection: Code(s): J06.9 - Acute upper respiratory infection, unspecified Qualifiers: URI type: acute nasopharyngitis (common cold) Qualified Code(s): J00 - Acute nasopharyngitis [common cold] Plan: - Warm fluids - Rest - Abx as prescribed - Neb at home as instructed (2) COPD with acute exacerbation: Code(s): J44.1 - Chronic obstructive pulmonary disease with (acute) exacerbation Plan: - Warm fluids - Rest - Abx as prescribed - Neb at home as instructed Orders: Orders SARS-CoV2/FLU/RSV Today J00 - Acute nasopharyngitis [common cold] AMB Nebulizer Treatment Today J00 - Acute nasopharyngitis [common cold] Medications: New azithromycin 500 mg PO DAILY 3 days 3 tabs 0RF J44.1 - Chronic obstructive pulmonary disease with (acute) exacerbation lefamulin 600 mg PO Q12H 5 days 10 tabs 0RF J44.1 - Chronic obstructive pulmonary disease with (acute) exacerbation ipratropium-albuterol 0.5 mg-3 mg(2.5 mg base)/3 mL 3 mL inhalation Q4-6H PRN 90 mL 0RF wheezing J44.1 - Chronic obstructive pulmonary disease with (acute) exacerbation prednisone 50 mg PO DAILY 5 days 5 tabs 0RF J44.1 - Chronic obstructive pulmonary disease with (acute) exacerbation Coding Level of Care Code Est Pt Level 4 (36642) Diagnoses Acute nasopharyngitis J00 URI type: acute nasopharyngitis (common cold) COPD with acute exacerbation J44.1 CPT Codes Nebulizer Treatment - Nebulizer Treatment, initial or subsequent: 74402- Nebulizer/MDI RX initial, or Nebulizer Subsequent Treatment ([id number]) Time Spent (min) 25
== END 2023-07-30 16:03 | disposition home or self-care (01) ==
PROVIDERS: PCP Nurse Practitioner Family; Visit Provider Nurse Practitioner Family
DX: J00 Acute nasopharyngitis [common cold] (principal); J44.1 Chronic obstructive pulmonary disease with (acute) exacerbation
CPT/HCPCS: 94640; 99214; J7620

== ENCOUNTER 2023-07-30 15:43 | Outpatient (REF) | payer OTHER, SELFPAY ==
[2023-07-31 11:50] LABS: Influenza A PCR NEGATIVE (Negative); Influenza B PCR NEGATIVE (Negative); Resp Syncy Virus RNA Qual PCR NEGATIVE (Negative); SARS COV2 PCR INHOUSE NEGATIVE (Negative)
== END 2023-07-30 15:44 | disposition home or self-care (01) ==
LOC: HO.LAB 15:43
PROVIDERS: Visit Provider Nurse Practitioner Family
DX: J00 Acute nasopharyngitis [common cold] (principal); Z11.52 Encounter for screening for COVID-19; Z20.828 Contact with and (suspected) exposure to other viral communicable diseases
CPT/HCPCS: 0241U

== ENCOUNTER 2023-08-03 11:01 | Emergency (ER) | payer OTHER, SELFPAY ==
[2023-08-03] VITALS (7 sets, daily range): BP systolic 140–161; BP diastolic 66–85; PULSE 74–110; RESP 15–20; TEMP 36.7–37; O2SAT 87–98; BMI 18.0
--- NOTE | 2023-08-03 | ECG_ITS ---
Test Reason : CHEST PAIN Blood Pressure : / mmHG Vent. Rate : 085 BPM Atrial Rate : 085 BPM P-R Int : 150 ms QRS Dur : 096 ms QT Int : 384 ms P-R-T Axes : 076 057 058 degrees QTc Int : 456 ms Artifact in tracing Normal sinus rhythm Cannot rule out Anterior infarct , age undetermined Abnormal ECG When compared with ECG of 05-JUN-2023 13:09, No significant change was found Referred By: Generic ED Physician Electronically Signed By:BRISSA VAZQUEZ
--- NOTE | ~2023-08-03 | XR_ITS ---
EXAMINATION: XR CHEST CLINICAL INFORMATION: Cough. COMPARISON: Chest 06/05/2023. TECHNIQUE: Frontal view of the chest was obtained. FINDINGS: The lungs are well-expanded and clear acute pneumonic process. There is a round nodule in the left CP angle measuring 6 mm. It was not seen on the recent chest x-ray 06/05/2023. Question artifact versus primary nodule. Heart size and pulmonary vascularity is normal. No gross bony abnormality seen there are dual spinal electrodes with their tips centered approximately T7-T8 disc level XR/XR chest 1V IMPRESSION: No acute pulmonary process seen. There is a small nodule left CP angle question artifact versus primary lung nodule is not seen on recent exam 06/05/2023. Recommend CT chest correlation
--- NOTE | 2023-08-03 11:29 | PC.NURSE ---
Pt presents to ED from home via EMS. Pt reports having a cold since February that has not gone away. Pt is a smoker, cigarettes and marijuana daily. Pt has O2 at home PRN but has not been using it. Pt reports worsening SOB and productive cough w/ green mucus X3 days, reports she is on prednisone and z-pack from her PCP. EMS gave pt Duoneb and 125 mg of Solu-medrol via IVP through 20G in left AC. Pt reports feeling better from interventions. Pt alert and oriented, breathing even and unlabored, skin WNL. No outward distress noted. Pt denies any pain, N/V/D. Pt on bedside spool cleaner, NSR. SPO2 on 2L O2 95%.
[2023-08-03 11:37] LABS: MANUAL DIFF FLAG NO
--- NOTE | 2023-08-03 11:40 | ED_ITS ---
HPI - SOB/Dyspnea General Chief Complaint: Upper Respiratory Symptoms Stated Complaint: PROD COUGH,SOB 93% RA X3 DAYS PER EMS Time Seen by Provider: 08/03/23 11:28 Source: patient Limitations: no limitations History of Present Illness HPI Narrative: 78 years old of female presented to the emergency department complaining of shortness of breath she has history of COPD, she ran out of oxygen at home. Denies any fever any chills any vomiting MD elicited complaint: shortness of breath Pertinent past history: COPD Onset (ago): day(s) (3) Context: recent illness Timing: constant Severity: moderate Exacerbating factors: nothing Relieving factors: nothing Associated symptoms: denies other symptoms Related Data Home Medications Medication Instructions Recorded Confirmed clonazepam 0.5 mg tablet 0.5 mg PO TID PRN Anxiety 03/08/20 03/18/23 calcium carbonate 500 mg calcium 500 mg PO DAILY 05/15/22 03/18/23 (1,250 mg) chewable tablet (Calcium 500) Previous Rx's Medication Instructions Recorded lidocaine 5 % topical ointment 1 appl topical BEDTIME PRN pain 30 12/03/21 days #60 grams cholecalciferol (vitamin D3) 50 50 mcg PO ONCE 90 days #90 caps 07/12/22 mcg (2,000 unit) capsule Ensure #30 ea 09/23/22 albuterol sulfate 2.5 mg/3 mL 2.5 mg (3 mL) inhalation TID #180 03/28/23 (0.083 %) solution for nebulization mL albuterol sulfate 90 mcg/actuation 2 puff PO Q6H PRN bronchospasm 30 03/28/23 aerosol inhaler days #8.5 grams fluticasone propionate 110 1 puff inhalation BID #36 grams 03/28/23 mcg/actuation HFA aerosol inhaler (Flovent HFA) atorvastatin 40 mg tablet 40 mg PO DAILY #90 tabs 03/30/23 rivaroxaban 20 mg tablet (Xarelto) 20 mg PO DAILY 90 days #90 tabs 03/30/23 memantine 5 mg tablet (Namenda) 5 mg PO QAM #90 tabs 04/02/23 diltiazem HCl 120 mg capsule,24 120 mg PO DAILY #30 caps 06/09/23 hr,extended release (Tiadylt ER) azithromycin 500 mg tablet 500 mg PO DAILY 3 days #3 tabs 02/22/24 ipratropium 0.5 mg-albuterol 3 mg 3 ml inhalation Q4-6H PRN wheezing 07/30/23 (2.5 mg base)/3 mL nebulization #90 mL soln lefamulin 600 mg tablet 600 mg PO Q12H 5 days #10 tabs 07/30/23 prednisone 50 mg tablet 50 mg PO DAILY 5 days #5 tabs 07/30/23 cetirizine 10 mg tablet 5 mg (1/2 x 10 mg) PO DAILY PRN 08/02/23 for allergies 90 days #45 tabs budesonide 1 mg/2 mL suspension 1 mg (2 mL) inhalation DAILY #60 mL 08/03/23 for nebulization (Pulmicort) doxycycline monohydrate 100 mg 100 mg PO BID #14 caps 08/03/23 capsule (Monodox) prednisone 20 mg tablet 60 mg (3 x 20 mg) PO DAILY #12 tabs 08/03/23 Allergies Allergy/AdvReac Type Severity Reaction Status Date / Time Cephalosporins Allergy Unknown UNKNOWN Verified 08/03/23 11:11 [CEPHALOSPORINS] clonidine [CLONIDINE] Allergy Unknown UNKNOWN Verified 08/03/23 11:11 gabapentin [GABAPENTIN] Allergy Unknown UNKNOWN Verified 08/03/23 11:11 mirtazapine [From REMERON] Allergy Unknown UNKNOWN Verified 08/03/23 11:11 naproxen Allergy Unknown UNKNOWN Verified 08/03/23 11:11 tramadol Allergy Unknown UNKNOWN Verified 08/03/23 11:11 bupropion [From WELLBUTRIN] AdvReac Unknown Shaky Verified 08/03/23 11:11 Review of Systems 2 Constitutional: Constitutional: Reports no additional constitutional complaints Eyes: Eyes: Reports no additional eye complaints Respiratory: Respiratory: Reports as per HPI Neurologic: Reports system reviewed and no additional complaints, except as documented [facility] Past Medical History Attestation statement: The following information was validated with the patient. [facility] Narrative: COPD O2 dependent Source: unable to obtain Medical History Nocturnal hypoxemia Basal cell carcinoma History of COVID-19 (~06/2021) Personal history of nicotine dependence Osteopenia (~2009) History of non-ST elevation myocardial infarction (NSTEMI) (~04/2016) COPD (chronic obstructive pulmonary disease) Depression with anxiety Brain aneurysm Bilateral carotid artery stenosis PAF (paroxysmal atrial fibrillation) (~04/2016) Atherosclerotic cardiovascular disease Surgical History History of inguinal hernia repair, bilateral (~2018) History of skin surgery History of arthroscopic surgery of shoulder (~2009) History of carpal tunnel release History of bladder surgery History of thumb surgery History of tubal ligation History of total hysterectomy Family History Family History Father No problems noted. Mother No problems noted. Brother Stroke Social History Social History Housing: Other Housing Other:: mobile home Are you a primary healthcare applications analyst to a significant other at home: No Do you presently have visiting nurse or other home services: Yes ([facility]) Patient Tobacco Use Status: Current everyday Tobacco user Tobacco use type: Cigarette Cigarettes Per Day: 0.5 Years Smoked: 68 Smoked in Last 30 Days: Yes e-Cigarette/Vaping Use: Never Used Second Hand Smoke Exposure: Yes Use of substances other than those prescribed or required for medical reasons: Yes Substance Use Type: Marijuana Advance Directives: Yes Advance Directives on File: Yes Advance Directives Date on File: 12/20/18 Current occupational status: retired and disabled Cognitive needs: No Hearing needs: No Vision needs: No Physical Exam 2 Vital Signs: Vital Signs: Last Vital Signs Temp 98.3 F 08/03/23 14:06 Pulse 80 08/03/23 14:06 Resp 16 08/03/23 14:06 BP 150/85 H 08/03/23 14:06 Pulse Ox 96 08/03/23 14:06 O2 Del Method Nasal Cannula 08/03/23 14:06 O2 Flow Rate 2 08/03/23 14:06 Oxygen Flow Rate 2 08/03/23 11:25 BMI result Body Mass Index 18.0 Const: General: cooperative Nutritional Appearance: average body habitus Orientation/consciousness: patient oriented x3 Limitations: no limitations HEENT: Head: Yes normal to inspection Ears: hearing grossly normal bilaterally General nose exam: Normal external nose present Face and sinus: Yes normal facial exam Mouth: Normal oral and palatal mucosa present Throat: Yes posterior oropharynx normal Neck: Neck: Yes normal visual inspection Thyroid: Thyroid normal Chest: Chest palpation & inspection: normal inspection of the chest Resp: Effort & Inspection: normal respiratory effort Auscultation: rhonchi Cardio: Jugular venous distension: no JVD Rate: regular rate Rhythm: r egular rhythm GI: Inspection: Yes normal to inspection Palpation (GI): Soft to palpation Auscultation: normal bowel sounds Skin: General skin exam: no rashes or lesions noted and elasticity normal L esions: no lesions Neuro: General: patient oriented x3 Course Reevaluation(s) Reevaluation #1: Patient remained clinically stable at chest x-ray was negative blood work was essentially normal except potassium in low. I consulted with the transplant case managergeothermal production manager therapist we arranged home oxygen also will send a prescription for prednisone doxycycline I will treat as exacerbation of COPD but again I think she is okay to be discharged home she was observed in the emergency room a few hours and she remained in stable condition. Time: 15:07 Medical Decision Making Medical Decision Making [facility] Narrative: Patient presented with shortness of breath she ran out of oxygen at home, will obtain a chest x-ray anyway labs COVID Differential Diagnosis Differential Diagnoses: The differential diagnosis associated with the presentation includes COPD exacerbation/pneumonia/COVID Admission/Observation Consideration of admission/observation: Escalation of care including admission/observation considered Lab Data [facility] Lab Attestation statement: I reviewed the patient's lab results. 08/03/23 11:32 08/03/23 11:32 Labs: Lab Results 08/03/23 Range/Units 11:32 WBC 8.4 (4.8-10.8) X10*3/uL RBC 4.22 (4.20-5.50) X10*6/uL Hgb 13.1 (12.0-16.0) g/dl Hct 39.8 (37.0-47.0) % MCV 94.3 (80.0-98.0) fL MCH 31.0 (27.0-33.0) pg MCHC 32.9 (31.0-35.0) g/dl RDW 15.9 (11.0-16.0) % Plt Count 232 (160-400) X10*3/uL MPV 8.2 L (9.4-12.3) fL Immature Gran % (Auto) 0.5 H (0.0-0.4) % Neut % (Auto) 63.9 (45-73) % Lymph % (Auto) 28.7 (20-40) % Cabell % (Auto) 6.6 (2-11) % Eos % (Auto) 0.1 (0-4) % Baso % (Auto) 0.2 (0-2) % Lymph # (Auto) 2.4 (1.2-4.9) X10*3/uL [place]ell # (Auto) 0.6 (0.1-1.2) X10*3/uL Eos # (Auto) 0.0 (0.0-0.4) X10*3/uL Baso # (Auto) 0.0 (0.0-0.2) X10*3/uL Abs Immat Gran (auto) 0.04 H (0.00-0.03) X10*3/uL Absolute Neuts (auto) 5.4 (2.0-8.3) x10*3/uL Absolute Nucleated RBC 0.000 (0.0-0.012) X10*3/uL Nucleated RBC % (auto) 0.0 (0.0-0.2) /100WBC Sodium 144 (135-145) mmol/L Potassium 3.1 L (3.3-5.1) mmol/L Chloride 110 H (96-108) mmol/L Carbon Dioxide 25 (22-29) mmol/L Anion Gap 12 (12-20) BUN 18 H (9-16) mg/dL Creatinine 0.77 (0.5-1.4) mg/dL Estim Creat Clear Calc 46.8 Estimated GFR > 60 Random Glucose 84 (60-115) mg/dL Calcium 8.8 D (8.4-10.2) mg/dL Influenza Type A (PCR) NEGATIVE (Negative) Influenza Type B (PCR) NEGATIVE (Negative) RSV RNA Qual (PCR) NEGATIVE (Negative) SARS-CoV-2 RNA (RT-PCR) NEGATIVE (Negative) Discharge Plan Discharge Clinical Impression: COPD exacerbation Patient Disposition: Home, Self-Care Instructions: COPD (Chronic Obstructive Pulmonary Disease) (DC) Prescriptions: New prednisone 20 mg tablet 60 mg PO DAILY Qty: 12 0RF doxycycline monohydrate [Monodox] 100 mg capsule 100 mg PO BID Qty: 14 0RF No Action cholecalciferol (vitamin D3) 50 mcg (2,000 unit) capsule 50 mcg PO ONCE 90 Days Qty: 90 1RF (DME) Ensure See Rx Instructions .Route .MEDSUPPLY Qty: 30 11RF Rx Instructions: [facility] [employer] Strawberries to [facility] Attn: Angela Bowman FAX [phone] tel [phone] ext [phone] albuterol sulfate 90 mcg/actuation HFA aerosol inhaler 2 puff PO Q6H PRN (Reason: bronchospasm) 30 Days Qty: 8.5 3RF albuterol sulfate 2.5 mg /3 mL (0.083 %) solution for nebulization 2.5 mg inhalation TID Qty: 180 3RF Flovent HFA 110 mcg/actuation HFA aerosol inhaler 1 puff inhalation BID Qty: 36 1RF Xarelto 20 mg tablet 20 mg PO DAILY 90 Days Qty: 90 3RF atorvastatin 40 mg tablet 40 mg PO DAILY Qty: 90 3RF memantine [Namenda] 5 mg tablet 5 mg PO QAM Qty: 90 1RF diltiazem HCl [Tiadylt ER] 120 mg capsule,extended release 24 hr 120 mg PO DAILY Qty: 30 6RF cetirizine 10 mg tablet 5 mg PO DAILY PRN (Reason: for allergies) 90 Days Qty: 45 1RF budesonide [Pulmicort] 1 mg/2 mL suspension for nebulization 1 mg inhalation DAILY Qty: 60 0RF azithromycin 500 mg tablet 500 mg PO DAILY 3 Days Qty: 3 0RF prednisone 50 mg tablet 50 mg PO DAILY 5 Days Qty: 5 0RF lefamulin 600 mg tablet 600 mg PO Q12H 5 Days Qty: 10 0RF ipratropium-albuterol 0.5 mg-3 mg(2.5 mg base)/3 mL solution for nebulization 3 ml inhalation Q4-6H PRN (Reason: wheezing) Qty: 90 0RF lidocaine 5 % ointment 1 appl topical BEDTIME PRN (Reason: pain) 30 Days Qty: 60 0RF calcium carbonate [Calcium 500] 500 mg calcium (1,250 mg) tablet,chewable 500 mg PO DAILY clonazepam 0.5 mg tablet 0.5 mg PO TID PRN (Reason: Anxiety) Referrals: Jung Schaefer, CAMBERING MACHINE OPERATOR-BC [Primary Care Provider] - 2 days
[2023-08-03 11:41] LABS: Basophils Percent Auto 0.2 % (0-2); Eosinophils Percent Auto 0.1 % (0-4); Hematocrit 39.8 % (37.0-47.0); Hemoglobin 13.1 g/dl (12.0-16.0); Imm Gran Abs Auto 0.04 X10*3/uL (0.00-0.03); Imm Gran Pct Auto 0.5 % (0.0-0.4); Lymphocytes Absolute Auto 2.4 X10*3/uL (1.2-4.9); Lymphocytes Percent Auto 28.7 % (20-40); Mean Corpuscular HGB Conc 32.9 g/dl (31.0-35.0); Mean Corpuscular Volume 94.3 fL (80.0-98.0); Mean Platelet Volume 8.2 fL (9.4-12.3); Monocytes Absolute Auto 0.6 X10*3/uL (0.1-1.2); Monocytes Percent Auto 6.6 % (2-11); Neutrophils Absolute Auto 5.4 x10*3/uL (2.0-8.3); Neutrophils Percent Auto 63.9 % (45-73); Platelet Count 232 X10*3/uL (160-400); Red Blood Count 4.22 X10*6/uL (4.20-5.50); Red Cell Distribution Width 15.9 % (11.0-16.0); White Blood Count 8.4 X10*3/uL (4.8-10.8)
[2023-08-03 11:54] LABS: Anion Gap 12 (12-20); Blood Urea Nitrogen 18 mg/dL (9-16); Calcium 8.8 mg/dL (8.4-10.2); Carbon Dioxide 25 mmol/L (22-29); Chloride 110 mmol/L (96-108); Creatinine Clr Calc Pharmacy 46.8; Estimated Glomerular Filt Rate > 60; Glucose Random 84 mg/dL (60-115); Potassium 3.1 mmol/L (3.3-5.1); Sodium 144 mmol/L (135-145)
[2023-08-03 12:20] LABS: Influenza A PCR NEGATIVE (Negative); Influenza B PCR NEGATIVE (Negative); Resp Syncy Virus RNA Qual PCR NEGATIVE (Negative); SARS COV2 PCR INHOUSE NEGATIVE (Negative)
--- NOTE | 2023-08-03 13:48 | MHC.CM.ED ---
Received case management consult from Dr Roth. Patient came to the ER due to shortness of breath and being out of oxygen. Met with patient and her son Keyur in regards to discharge planning. Patient lives alone, ambulates with a cane and uses [facility] for oxygen services. PCP verified. Copy of HCP verified to be on file. Patient states she intermittently uses oxygen, needed it this morning and it wasn't working. T/W verified patient has a concentrator at home, not oxygen tanks. RT Jian spoke with [employer]. They will replace her concentrator. Jian will provide an oxygen tank for her to go home. Keyur will transport patient home. Patient, Ray, Nat MALONEY and Dr Roth all aware and agreeable to d/c plan.
[2023-08-03] MEDS: Doxycycline Monohydrate 100 MG CAPSULE PO (15:18)
[2023-08-03] MEDS: Potassium Chloride ER 20 MEQ TAB.ER.PRT PO (15:18)
[2023-08-03] MEDS: methylPREDNISolone Sod Succ 125 MG/2 ML VIAL IVPUSH (15:18)
--- NOTE | 2023-08-03 16:48 | PC.NURSE ---
Pt asked for IV to be taken out due to pain, adamant. IV removed. Pt staying as phy obs due to oxygen tank issue at home.
--- NOTE | 2023-08-03 18:01 | MHC.CM.ED ---
Per Respiratory therapy: [facility] services with [facility] have been arranged, but needs authorization from [facility]. Pt will stay overnight, with expected discharge for tomorrow, 08/04 with home oxygen services.
--- NOTE | 2023-08-03 19:58 | MHC.EDTECH ---
Patient given a dinner tray
[2023-08-03] MEDS: clonazePAM 0.5 MG TABLET PO (20:39)
[2023-08-03] MEDS: traZODone HCL 100 MG TABLET 150 MG PO (20:39)
[2023-08-04 00:23] VITALS: BP 163/81; PULSE 61; RESP 15; TEMP 36.7; O2SAT 96
--- NOTE | 2023-08-04 02:51 | PC.NURSE ---
Addendum entered by Val Eagle 08/04/23 03:00: pt on 2L nasal cannula upon arrival to [facility]. Original Note: this rn assumed care of pt. pt transported from main ed to [facility], pt placed in hospital bed. no acute distress noted, respirations even and unlabored.
--- NOTE | 2023-08-04 07:25 | PC.NURSE ---
Addendum entered by Leah Severino RN 08/04/23 09:51: med rec cancelled per [facility] since pt is due to be discharged at some point today. Addendum entered by Jeanette Mejia [facility] 08/04/23 07:42: Patient is being discharged today and is currently not admitted. RN can do med rec if needed, pharmacy will prioritize admissions and attempt this med rec after. Original Note: called pharmacy for med rec per [facility].
--- NOTE | 2023-08-04 08:30 | PC.RT ---
pt was seen yesterday by me as she had oxygen issues at home. Pt does have home oxygen but pt states her 02 concentrator is broken and she ran out of oxygen tanks. Thus the reason why she is here. I spoke with her [facility] and they need authorization for her new script. Which means this: She was evlauted in the ED yesterday and now she will require 2 liters of oxygen during ambulation. Her prior script was only for night time. Now that her sript has change, we need authorixation from her insurance which is [facility]. I am wating for [facility] to call me so we can get this done for her today and discharge home.
--- NOTE | 2023-08-04 09:52 | PC.NURSE ---
assumed care of pt at 0700. pt a&o x4, calm, and cooperative. pt ambulated to bathroom with 1 assist/standby and portable O2 tank. back to bed and consumed breakfast. pt denies pain. rr even/unlabored. plan is for new prescription for continuous O2 at home. awaiting insurance auth. then plan to d/c. call dawson within reach. plan of care ongoing.
--- NOTE | 2023-08-04 09:58 | PHA.MEDREC ---
Pharmacy Consult ? Medication Reconciliation Pharmacy has completed the medication reconciliation. Spoke with patient who had a list with her a bedside.
--- NOTE | 2023-08-04 11:49 | MHC.CM.ED ---
Patient remains in Er overflow. Per Jerry, RT patient has been approved for oxygen. [facility] oxygen tanks to the hospital and then arrange a concentrator once patient gets home. Patient, Emerita Trivedi RN and Mila CALLE made aware. Continue to monitor for d/c needs.
[2023-08-04 13:56] VITALS: BP 147/71; PULSE 82; RESP 20; TEMP 37; O2SAT 92
--- NOTE | 2023-08-04 14:12 | PC.NURSE ---
Patient's son approaching RN station asking where O2 tanks are, son called insurance who states they never got a request form and gave him a number to send an expedited request form to. RT Jerry & Woody Case Management made aware. Jerry RT in contact with [facility] regarding location of the o2 tanks.
[2023-08-04] MEDS: Rivaroxaban 20 MG TABLET PO (15:38)
[2023-08-04] MEDS: Atorvastatin Calcium 40 MG TABLET PO (15:38)
--- NOTE | 2023-08-04 16:15 | MHC.CM.ED ---
HCP faxed to Thao at [facility] (fax [phone]) at Thao's request. Copies given to jodie.
--- NOTE | 2023-08-04 16:30 | PC.RT ---
I have spoke to [facility] 6 times today asking about patients oxygen tanks to be delivered. [facility] Rep says that Insurance [employer] company still has not have pre-authorization. Pt already has oxygen at home so this is just a script change. [facility] rep did says that someone should be here soon for 02 tank drop off and then the patient can go home and be also set up with her new concentrator. Son very upset and doesn't understand why it is taking so long. I did call Taylor Yadav and she did talk with family.
[2023-08-04] MEDS: dilTIAZem HCL CD 120 MG CAP.ER.DEG PO (17:58)
== END 2023-08-04 18:05 | disposition home or self-care (01) ==
PROVIDERS: Emergency Provider Emergency Medicine; PCP Nurse Practitioner Family
DX: J44.1 Chronic obstructive pulmonary disease with (acute) exacerbation (principal); Z99.81 Dependence on supplemental oxygen; Z11.52 Encounter for screening for COVID-19; Z20.828 Contact with and (suspected) exposure to other viral communicable diseases
CPT/HCPCS: 0241U; 71045; 80048; 85025; 93005; 99285; J2930

== ENCOUNTER → 2023-08-03 11:19 | Outpatient (BNV) | payer OTHER, SELFPAY | PROVIDERS: Emergency Provider Emergency Medicine; PCP Nurse Practitioner Family; Visit Provider Internal Medicine | DX: R94.31 Abnormal electrocardiogram [ECG] [EKG] (principal) | CPT/HCPCS: 93010 ==

== ENCOUNTER 2023-08-11 12:50 | Inpatient (IN) | payer OTHER, SELFPAY ==
[2023-08-11] VITALS (7 sets, daily range): BP systolic 103–130; BP diastolic 49–74; PULSE 89–130; RESP 18–22; TEMP 36.9–39.2; O2SAT 88–100; BMI 21.9
--- NOTE | ~2023-08-11 | XR_ITS ---
EXAMINATION: XR CHEST CLINICAL INFORMATION: SOB COMPARISON: None available. TECHNIQUE: 2 views of the chest were obtained. FINDINGS: The lungs are well-expanded and clear. Heart size and pulmonary vascularity is normal. No gross bony abnormality seen. There are posterior spinal electrodes in mid dorsal spine. There is mild compression deformity T10 vertebra, new versus old. XR/XR chest 2V IMPRESSION: No acute intracranial process seen.
--- NOTE | 2023-08-11 12:58 | ED_ITS ---
HPI - General Adult General Chief complaint: Dyspnea Stated complaint: SOB,88% RA,DUINEB GIVEN PER EMS Time Seen by Provider: 08/11/23 12:58 Source: patient and EMS Mode of arrival: EMS Limitations: no limitations History of Present Illness HPI narrative: Patient is a 78 year old, assigned female at , with a history of HTN, CAD, B/L carotid artery stenosis, A fib, brain aneurism, fibromyalgia, and COPD presents to the ED for a 5 hour history of SOB. Patient reports upon waking up this morning she was struggling to breathe. She reports being hospitalized a week ago for similar symptoms and she was sent home on oxygen and antibiotics. Patient reports compliance with her ABX, oxygen, and all home meds. Patient endorses persistent nasal congestion dating back to February and a recent onset of a headache and generalized weakness. Patient denies dizziness, lightheadedness, acute vision changes, chest pain, urinary/bowel symptoms, and body aches. Denies recent travel and sick contacts. MD complaint: SOB Onset (ago): hour(s) (5) Radiation: non-radiation Severity: mild Severity scale (1-10): 3 Relieving factors: none Exacerbating factors: none Associated symptoms: headaches, shortness of breath and weakness Treatments prior to arrival: other (Given solumedrol, DuoNeb, and oxygen by EMS prior to arrival) Related Data Home Medications Medication Instructions Recorded Confirmed clonazepam 0.5 mg tablet 0.5 mg PO TID PRN Anxiety 03/08/20 08/04/23 meclizine 25 mg tablet 25 mg PO DAILY PRN Vertigo 08/04/23 08/04/23 omeprazole 20 mg capsule,delayed 20 mg PO DAILY 08/04/23 08/04/23 release trazodone 150 mg tablet 150 mg PO BEDTIME PRN insomnia 08/04/23 08/04/23 Previous Rx's Medication Instructions Recorded Ensure #30 ea 09/23/22 albuterol sulfate 2.5 mg/3 mL 2.5 mg (3 mL) inhalation TID #180 03/28/23 (0.083 %) solution for nebulization mL albuterol sulfate 90 mcg/actuation 2 puff PO Q6H PRN bronchospasm 30 03/28/23 aerosol inhaler days #8.5 grams fluticasone propionate 110 1 puff inhalation BID #36 grams 03/28/23 mcg/actuation HFA aerosol inhaler (Flovent HFA) atorvastatin 40 mg tablet 40 mg PO DAILY #90 tabs 03/30/23 rivaroxaban 20 mg tablet (Xarelto) 20 mg PO DAILY 90 days #90 tabs 03/30/23 diltiazem HCl 120 mg capsule,24 120 mg PO DAILY #30 caps 06/09/23 hr,extended release (Tiadylt ER) ipratropium 0.5 mg-albuterol 3 mg 3 ml inhalation Q4-6H PRN wheezing 07/30/23 (2.5 mg base)/3 mL nebulization #90 mL soln doxycycline monohydrate 100 mg 100 mg PO BID #14 caps 08/03/23 capsule (Monodox) prednisone 20 mg tablet 60 mg (3 x 20 mg) PO DAILY #12 tabs 08/03/23 Allergies Allergy/AdvReac Type Severity Reaction Status Date / Time Cephalosporins Allergy Unknown UNKNOWN Verified 08/11/23 13:17 [CEPHALOSPORINS] clonidine [CLONIDINE] Allergy Unknown UNKNOWN Verified 08/11/23 13:17 gabapentin [GABAPENTIN] Allergy Unknown UNKNOWN Verified 08/11/23 13:17 mirtazapine [From REMERON] Allergy Unknown UNKNOWN Verified 08/11/23 13:17 naproxen Allergy Unknown UNKNOWN Verified 08/11/23 13:17 tramadol Allergy Unknown UNKNOWN Verified 08/11/23 13:17 bupropion [From WELLBUTRIN] AdvReac Unknown Shaky Verified 08/11/23 13:17 Review of Systems 2 Constitutional: Constitutional: Denies chills, Denies fever(s), Reports headache(s), Denies night sweats and Reports weakness Eyes: Eyes: Reports no additional eye complaints, Denies blurry vision, Denies change in vision, Denies diplopia, Denies eye discharge, Denies loss of vision and Denies eye pain ENT: Reports Normal hearing present, Denies dizziness, Reports headache(s), Reports nasal congestion and Denies sore throat Cardiovascular: Cardiovascular: Denies chest pain, Denies lightheadedness, Denies Loss of Consciousness and Reports dyspnea Respiratory: Respiratory: Reports cough and Reports dyspnea Gastrointestinal: Gastrointestinal: Reports no additional gastrointestinal complaints, Denies abdominal pain, Denies melena, Denies hematochezia, Denies change in bowel habits and Denies change in stool character Genitourinary: Genitourinary: Denies hematuria, Denies urinary frequency, Denies dysuria, Denies urinary incontinence, Denies urinary hesitancy and Denies urinary urgency Musculoskeletal: Musculoskeletal: Reports no additional musculoskeletal complaints, Denies numbness and Denies tingling Neurologic: Reports Normal hearing present, Denies dizziness, Reports headache(s), Denies loss of vision, Denies numbness, Denies tingling and Reports weakness Psychiatric: Psychiatric: Reports no additional psychiatric complaints Endocrine: Endocrine: Reports no additional endocrine complaints Hematologic/Lymphatic: Hematologic/Lymphatic: Reports no additional hematologic/lymphatic complaints Allergic/Immunologic: Allergic/Immunologic: Reports no additional allergic/immunologic complaints [facility] Past Medical History Medical History Nocturnal hypoxemia Basal cell carcinoma History of COVID-19 (~06/2021) Personal history of nicotine dependence Osteopenia (~2009) History of non-ST elevation myocardial infarction (NSTEMI) (~04/2016) COPD (chronic obstructive pulmonary disease) Depression with anxiety Brain aneurysm Bilateral carotid artery stenosis PAF (paroxysmal atrial fibrillation) (~04/2016) Atherosclerotic cardiovascular disease Surgical History History of inguinal hernia repair, bilateral (~2018) History of skin surgery History of arthroscopic surgery of shoulder (~2009) History of carpal tunnel release History of bladder surgery History of thumb surgery History of tubal ligation History of total hysterectomy Family History Family History Father No problems noted. Mother No problems noted. Brother Stroke Social History Social History Housing: Other Housing Other:: mobile home Are you a primary memory care program director to a significant other at home: No Do you presently have visiting nurse or other home services: Yes (VNA) Patient Tobacco Use Status: Current everyday Tobacco user Tobacco use type: Cigarette Cigarettes Per Day: 0.5 Years Smoked: 68 Smoked in Last 30 Days: No e-Cigarette/Vaping Use: Never Used Second Hand Smoke Exposure: Yes Use of substances other than those prescribed or required for medical reasons: No Substance Use Type: Marijuana Advance Directives: Yes Advance Directives on File: Yes Advance Directives Date on File: 08/03/23 Current occupational status: retired and disabled Cognitive needs: No Hearing needs: No Vision needs: No Physical Exam ED Vital Signs: Vital Signs - 24 hr 08/11/23 13:03 08/11/23 13:19 08/11/23 13:50 Temperature 102.5 F H Pulse Rate 129 H 122 H 130 H Respiratory Rate 22 H 20 Blood Pressure 116/74 126/68 Pulse Oximetry 90 L 92 Oxygen Delivery Method Nasal Cannula Nasal Cannula Oxygen Flow Rate 4 08/11/23 15:04 Temperature 98.4 F Pulse Rate 114 H Respiratory Rate 19 Blood Pressure 97/58 L Pulse Oximetry 100 Oxygen Delivery Method Nasal Cannula Oxygen Flow Rate 4 BMI result Body Mass Index 21.9 Const General: cooperative, alert and awake Orientation/consciousness: patient oriented x3 Limitations: no limitations HENMT Head: Yes normal to inspection Ears: hearing grossly normal bilaterally General nose exam: Normal external nose present Face and sinus: Yes normal facial exam Eyes General: appearance normal, both eyes and all related structures Resp Effort & Inspection: able to speak in complete sentences, audible wheezes and Actively coughing Auscultation: wheezes expiratory wheezes and lower bilaterally Cardio Palpation: normal PMI Rate: tachycardic Rhythm: regular rhythm Neuro General: patient oriented x3 Cranial nerves: Yes Normal hearing present Medications Administered Discontinued Medications Generic Name Dose Route Start Last Admin Trade Name Freq PRN Reason Stop Dose Admin Acetaminophen 650 mg 08/11/23 13:16 08/11/23 13:38 Acetaminophen 325 Mg Tablet PO 08/11/23 13:17 650 mg ONCE ONE Administration Levalbuterol HCl 2.5 mg/ 0 mg 08/11/23 13:13 08/11/23 13:19 Ipratropium [place] 0.5 mg INHALE 08/11/23 13:14 1 dose ONCE ONE Administration Sodium Chloride 1,000 mls @ 999 mls/hr 08/11/23 13:30 08/11/23 13:31 Ns IV 08/11/23 14:30 999 mls/hr .Q1H1M KELLY Administration Levofloxacin 750 mg in 150 mls @ 100 mls/hr 08/11/23 13:17 08/11/23 13:48 Levaquin IV 08/11/23 14:46 100 mls/hr ONCE ONE Administration Medical Decision Making Medical Decision Making MDM Narrative: Patient is a 78 year old assigned female at with a history of COPD on 2LPM of oxygen at baseline presenting to the emergency department today with increased shortness of breath and feeling generally unwell. Patient's physical exam was as noted in the physical exam portion of this note. Patient's blood work showed a slightly elevated WBC count of 13.4 but was otherwise unremarkable. Patient's COVID-19 and RSV tests were negative. Patient's influenza test was positive. Patient's EKG was unremarkable. Patient's chest x- ray showed no acute process. Patient was febrile. Patient's clinical presentation is most consistent with influenza and not sepsis (@1500). Patient was initially 88% on her normal 2 liters of oxygen. Patient was upped to 4 lpm and is saturating in the low 90s. I spoke to the hospitalist who agreed to admission. I explained my physical exam findings as well as all test results to the patient. I answered all questions asked by the patient. Patient verbalized agreement and understanding with this treatment plan and admission. Differential Diagnosis Differential Diagnoses: The differential diagnosis associated with the presentation includes Influenza PNA COPD exacerbation Admission/Observation Consideration of admission/observation: Escalation of care including admission/observation considered Patient admitted. Consult Healthcare Provider Management of the patient was discussed with: Hospitalist (agreed to admission as noted in the MDM Rationale portion of this note.) Lab Data [facility] Lab Attestation statement: I reviewed the patient's lab results. My interpretation of these results are in the MDM Rationale portion of this note. 08/11/23 13:31 08/11/23 13:31 Labs: Lab Results 08/11/23 Range/Units 13:31 WBC 13.4 H (4.8-10.8) X10*3/uL RBC 4.97 (4.20-5.50) X10*6/uL Hgb 15.3 (12.0-16.0) g/dl Hct 45.1 (37.0-47.0) % MCV 90.7 (80.0-98.0) fL MCH 30.8 (27.0-33.0) pg MCHC 33.9 (31.0-35.0) g/dl RDW 15.9 (11.0-16.0) % Plt Count 269 (160-400) X10*3/uL MPV 8.2 L (9.4-12.3) fL Immature Gran % (Auto) 1.7 H (0.0-0.4) % Neut % (Auto) 79.4 H (45-73) % Lymph % (Auto) 14.4 L (20-40) % [place] % (Auto) 4.2 (2-11) % Eos % (Auto) 0.2 (0-4) % Baso % (Auto) 0.1 (0-2) % Lymph # (Auto) 1.9 (1.2-4.9) X10*3/uL [place] # (Auto) 0.6 (0.1-1.2) X10*3/uL Eos # (Auto) 0.0 (0.0-0.4) X10*3/uL Baso # (Auto) 0.0 (0.0-0.2) X10*3/uL Abs Immat Gran (auto) 0.23 H (0.00-0.03) X10*3/uL Absolute Neuts (auto) 10.6 H (2.0-8.3) x10*3/uL Absolute Nucleated RBC 0.000 (0.0-0.012) X10*3/uL Nucleated RBC % (auto) 0.0 (0.0-0.2) /100WBC Sodium 136 (135-145) mmol/L Potassium 3.6 (3.3-5.1) mmol/L Chloride 101 (96-108) mmol/L Carbon Dioxide 25 (22-29) mmol/L Anion Gap 14 (12-20) BUN 17 H (9-16) mg/dL Creatinine 0.85 (0.5-1.4) mg/dL Estim Creat Clear Calc 40.4 Estimated GFR > 60 Random Glucose 101 (60-115) mg/dL Lactic Acid 1.9 (0.5-2.0) mmol/L Calcium 9.3 (8.4-10.2) mg/dL Magnesium 1.6 (1.6-2.6) mg/dL Total Bilirubin 0.7 (0.0-1.0) mg/dL AST 27 (5-31) U/L ALT 13 (0-31) U/L Alkaline Phosphatase 140 H (39-117) U/L Troponin I High Sens 11.5 (<3.5-17.0) ng/L Total Protein 7.0 (6.5-8.0) g/dL Albumin 4.0 (3.5-5.0) g/dL Influenza Type A (PCR) POSITIVE A (Negative) Influenza Type B (PCR) NEGATIVE (Negative) RSV RNA Qual (PCR) NEGATIVE (Negative) SARS-CoV-2 RNA (RT-PCR) NEGATIVE (Negative) Independent Interpretation I performed an independent interpretation of an: EKG and Plain X-Ray Interpretation: My interpretation is in agreement with the radiologist's impression of this imaging study. - EXAMINATION: XR CHEST CLINICAL INFORMATION: SOB COMPARISON: None available. TECHNIQUE: 2 views of the chest were obtained. FINDINGS: The lungs are well-expanded and clear. Heart size and pulmonary vascularity is normal. No gross bony abnormality seen. There are posterior spinal electrodes in mid dorsal spine. There is mild compression deformity T10 vertebra, new versus old. XR/XR chest 2V IMPRESSION: No acute intracranial process seen. Dictated By: Rohan Celeste MD Signed By: Electronically signed by Rohan Celeste MD 08/11/23 1502 - Vent. Rate: 126 BPM Atrial Rate: 126 BPM P-R Int: 132 ms QRS Dur: 080 ms QT Int: 308 ms P-R-T Axes: 081 064 079 degrees QTc Int: 446 ms Sinus tachycardia Otherwise normal ECG When compared with ECG of 03-AUG-2023 11:19, T wave amplitude has increased in Inferior leads Nonspecific T wave abnormality no longer evident in Anterior leads DD/ 1317 Radiology Impression Discussion of test interpretation with radiology: I have reviewed the radiologist's reading. Independent Historian Clinical information obtained from an independent historian. History obtained from or confirmed by: EMS (EMS provided additional history and confirmed the history provided by the patient.) Critical Care Time Critical Care Time Critical Care Time: Yes Total Critical Care Time: 45 Attestation: I spent 45 minutes of Critical Care Time with this patient. This does not include time spent on separately reported billable procedures. Discharge Plan Discharge Clinical Impression: Influenza Patient Disposition: Admitted As Inpatient Prescriptions: No Action (DME) Ensure See Rx Instructions .Route .MEDSUPPLY Qty: 30 11RF Rx Instructions: Chocolate & Strawberries to [facility] Attn: Angela Bowman FAX [phone] tel [phone] ext [phone] albuterol sulfate 90 mcg/actuation HFA aerosol inhaler 2 puff PO Q6H PRN (Reason: bronchospasm) 30 Days Qty: 8.5 3RF albuterol sulfate 2.5 mg /3 mL (0.083 %) solution for nebulization 2.5 mg inhalation TID Qty: 180 3RF Flovent HFA 110 mcg/actuation HFA aerosol inhaler 1 puff inhalation BID Qty: 36 1RF Xarelto 20 mg tablet 20 mg PO DAILY 90 Days Qty: 90 3RF atorvastatin 40 mg tablet 40 mg PO DAILY Qty: 90 3RF diltiazem HCl [Tiadylt ER] 120 mg capsule,extended release 24 hr 120 mg PO DAILY Qty: 30 6RF prednisone 20 mg tablet 60 mg PO DAILY Qty: 12 0RF doxycycline monohydrate [Monodox] 100 mg capsule 100 mg PO BID Qty: 14 0RF meclizine 25 mg Tablet 25 mg PO DAILY PRN (Reason: Vertigo) omeprazole 20 mg Capsule,Delayed Release(Dr/Ec) 20 mg PO DAILY trazodone 150 mg tablet 150 mg PO BEDTIME PRN (Reason: insomnia) ipratropium-albuterol 0.5 mg-3 mg(2.5 mg base)/3 mL solution for nebulization 3 ml inhalation Q4-6H PRN (Reason: wheezing) Qty: 90 0RF clonazepam 0.5 mg tablet 0.5 mg PO TID PRN (Reason: Anxiety)
--- NOTE | 2023-08-11 12:59 | ECG_ITS ---
Test Reason : sob Blood Pressure : / mmHG Vent. Rate : 126 BPM Atrial Rate : 126 BPM P-R Int : 132 ms QRS Dur : 080 ms QT Int : 308 ms P-R-T Axes : 081 064 079 degrees QTc Int : 446 ms Sinus tachycardia Otherwise normal ECG When compared with ECG of 03-AUG-2023 11:19, T wave amplitude has increased in Inferior leads Nonspecific T wave abnormality no longer evident in Anterior leads Referred By: Huong Navarro Electronically Signed By:Pedro Gonsalez
[2023-08-11] MEDS: levalbuterol HCL 2.5 MG, Ipratropium Bromide 0.5 MG INHALE (13:19)
[2023-08-11] MEDS: 0.9 % Sodium Chloride 1,000 ML 999 ML IV (13:31)
[2023-08-11 13:37] LABS: MANUAL DIFF FLAG NO
[2023-08-11] MEDS: Acetaminophen 325 MG TABLET 650 MG PO (13:38)
[2023-08-11 13:41] LABS: Basophils Percent Auto 0.1 % (0-2); Eosinophils Percent Auto 0.2 % (0-4); Hematocrit 45.1 % (37.0-47.0); Hemoglobin 15.3 g/dl (12.0-16.0); Imm Gran Abs Auto 0.23 X10*3/uL (0.00-0.03); Imm Gran Pct Auto 1.7 % (0.0-0.4); Lymphocytes Absolute Auto 1.9 X10*3/uL (1.2-4.9); Lymphocytes Percent Auto 14.4 % (20-40); Mean Corpuscular HGB Conc 33.9 g/dl (31.0-35.0); Mean Corpuscular Hemoglobin 30.8 pg (27.0-33.0); Mean Corpuscular Volume 90.7 fL (80.0-98.0); Mean Platelet Volume 8.2 fL (9.4-12.3); Monocytes Absolute Auto 0.6 X10*3/uL (0.1-1.2); Monocytes Percent Auto 4.2 % (2-11); Neutrophils Absolute Auto 10.6 x10*3/uL (2.0-8.3); Neutrophils Percent Auto 79.4 % (45-73); Platelet Count 269 X10*3/uL (160-400); Red Blood Count 4.97 X10*6/uL (4.20-5.50); Red Cell Distribution Width 15.9 % (11.0-16.0); White Blood Count 13.4 X10*3/uL (4.8-10.8)
--- NOTE | 2023-08-11 13:45 | PC.NURSE ---
Patient comes to ER for SOB while at home, patient is alert and oriented, skin warm to touch, patient reports no pain, lung sounds clear, diminished in bases,patient has junky cough, patient tachy 120s-130s, ST on monitor.
[2023-08-11] MEDS: levoFLOXacin/D5W 750 MG/150 ML PIGGYBACK 100 MG IV (13:48)
[2023-08-11 13:55] LABS: Lactic Acid 1.9 mmol/L (0.5-2.0)
[2023-08-11 14:00] LABS: Alanine Aminotransferase 13 U/L (0-31); Alkaline Phosphatase 140 U/L (39-117); Anion Gap 14 (12-20); Aspartate Amino Transferase 27 U/L (5-31); Bilirubin Total 0.7 mg/dL (0.0-1.0); Blood Urea Nitrogen 17 mg/dL (9-16); Calcium 9.3 mg/dL (8.4-10.2); Carbon Dioxide 25 mmol/L (22-29); Chloride 101 mmol/L (96-108); Creatinine Clr Calc Pharmacy 40.4; Estimated Glomerular Filt Rate > 60; Glucose Random 101 mg/dL (60-115); Magnesium 1.6 mg/dL (1.6-2.6); Potassium 3.6 mmol/L (3.3-5.1); Sodium 136 mmol/L (135-145)
[2023-08-11 14:04] LABS: Troponin-I High Sensitivity 11.5 ng/L (<3.5-17.0)
[2023-08-11 14:22] LABS: Influenza A PCR POSITIVE (Negative); Influenza B PCR NEGATIVE (Negative); Resp Syncy Virus RNA Qual PCR NEGATIVE (Negative); SARS COV2 PCR INHOUSE NEGATIVE (Negative)
--- NOTE | 2023-08-11 15:14 | P.HPHOSP_ITS ---
History of Present Illness Date of Service: 08/11/23 Chief Complaint: SOB 78 year old woman with hypertension, coronary artery disease, bilateral carotid stenosis, AFib presented to the ER with shortness breath. She reported that she felt shortness of breath today and then noticed later in the day that her oxygen was kinked min that she was not getting enough oxygen. She reported that since February of last year she has been feeling pretty unwell from her COPD and has been more short of breath in the last several days. She reported her last cigarette was approximately 7 days ago and has not smoked since, she has been smoking since he was 9 years old. She denied fever, chills, nausea, vomiting, diarrhea, recent travel, sick contacts. She reports presenting to the ER a week ago for similar symptoms and she was sent home on oxygen and antibiotics. Patient reports compliance with her ABX, oxygen, and all home meds. Labs WNL, mildly elevated WBC, blood pressure on the lower side. She was given a dose of Levaquin, Tylenol, Solu-Medrol, levalbuterol in 1 L of IV fluid. She will be admitted for further management and treatment of acute hypoxic respiratory failure secondary to influenza a and COPD exacerbation. Review of Systems 2 Review of Systems: Denies any recent fever chills or decrease in appetite respiratory See HPI cardiovascular Denied chest pain gastrointestinal denies any dysphagia abdominal pain nausea vomiting or diarrhea genitourinary denies any dysuria frequency or hematuria musculoskeletal denies any joint pain or swelling neuropsych denies any weakness or seizures all other systems reviewed are negative [facility] Medical History Nocturnal hypoxemia Basal cell carcinoma History of COVID-19 (~06/2021) Personal history of nicotine dependence Osteopenia (~2009) History of non-ST elevation myocardial infarction (NSTEMI) (~04/2016) COPD (chronic obstructive pulmonary disease) Depression with anxiety Brain aneurysm Bilateral carotid artery stenosis PAF (paroxysmal atrial fibrillation) (~04/2016) Atherosclerotic cardiovascular disease Family History Father No problems noted. Mother No problems noted. Brother Stroke Surgical History History of inguinal hernia repair, bilateral (~2019) History of skin surgery History of arthroscopic surgery of shoulder (~2009) History of carpal tunnel release History of bladder surgery History of thumb surgery History of tubal ligation History of total hysterectomy Social History Housing: Other Housing Other:: mobile home Are you a primary team primary care physician to a significant other at home: No Do you presently have visiting nurse or other home services: Yes (VNA) Patient Tobacco Use Status: Current everyday Tobacco user Tobacco use type: Cigarette Cigarettes Per Day: 0.5 Years Smoked: 68 Smoked in Last 30 Days: No e-Cigarette/Vaping Use: Never Used Second Hand Smoke Exposure: Yes Use of substances other than those prescribed or required for medical reasons: No Substance Use Type: Marijuana Advance Directives: Yes Advance Directives on File: Yes Advance Directives Date on File: 08/03/23 Current occupational status: retired and disabled Cognitive needs: No Hearing needs: No Vision needs: No Meds Allergies Allergy/AdvReac Type Severity Reaction Status Date / Time Cephalosporins Allergy Unknown UNKNOWN Verified 08/11/23 13:17 [CEPHALOSPORINS] clonidine [CLONIDINE] Allergy Unknown UNKNOWN Verified 08/11/23 13:17 gabapentin [GABAPENTIN] Allergy Unknown UNKNOWN Verified 08/11/23 13:17 mirtazapine [From REMERON] Allergy Unknown UNKNOWN Verified 08/11/23 13:17 naproxen Allergy Unknown UNKNOWN Verified 08/11/23 13:17 tramadol Allergy Unknown UNKNOWN Verified 08/11/23 13:17 bupropion [From WELLBUTRIN] AdvReac Unknown Shaky Verified 08/11/23 13:17 Home Medications Medication Instructions Recorded Confirmed Last Taken Type clonazepam 0.5 mg tablet 0.5 mg PO TID PRN Anxiety 03/08/20 08/04/23 Unknown History meclizine 25 mg tablet 25 mg PO DAILY PRN Vertigo 08/04/23 08/04/23 Unknown History omeprazole 20 mg capsule,delayed 20 mg PO DAILY 08/04/23 08/04/23 Unknown History release trazodone 150 mg tablet 150 mg PO BEDTIME PRN insomnia 08/04/23 08/04/23 Unknown History Physical Exam 2 Vital Signs and Narrative: Vital Signs: Last Vital Signs Temp 98.4 F 08/11/23 15:04 Pulse 114 H 08/11/23 15:04 Resp 19 08/11/23 15:04 BP 97/58 L 08/11/23 15:04 Pulse Ox 100 08/11/23 15:04 O2 Del Method Nasal Cannula 08/11/23 15:04 O2 Flow Rate 4 08/11/23 15:04 BMI result Body Mass Index 21.9 Appearing in no acute distress head is normocephalic atraumatic eyes pupils are PERRLA sclera is anicteric mouth throat mucous membranes are intact and moist neck is supple no lymphadenopathy, no JVD noted lung sounds mild expiratory wheezing heart regular rate rhythm, clear S1, S2 positive bowel sounds, abdomen is soft, nontender neuro patient is alert x3, no focal deficits Results Labs 08/11/23 13:31 08/11/23 13:31 Labs: Laboratory Results - last 24 hr 08/11/23 13:31 MCV 90.7 MCH 30.8 MCHC 33.9 RDW 15.9 Plt Count 269 MPV 8.2 L Immature Gran % (Auto) 1.7 H Neut % (Auto) 79.4 H Lymph % (Auto) 14.4 L [place] % (Auto) 4.2 Eos % (Auto) 0.2 Baso % (Auto) 0.1 Lymph # (Auto) 1.9 [place] # (Auto) 0.6 Eos # (Auto) 0.0 Baso # (Auto) 0.0 Abs Immat Gran (auto) 0.23 H Absolute Neuts (auto) 10.6 H Absolute Nucleated RBC 0.000 Nucleated RBC % (auto) 0.0 Anion Gap 14 Estim Creat Clear Calc 40.4 Estimated GFR > 60 Random Glucose 101 Lactic Acid 1.9 Calcium 9.3 Magnesium 1.6 Total Bilirubin 0.7 AST 27 ALT 13 Alkaline Phosphatase 140 H Troponin I High Sens 11.5 Total Protein 7.0 Albumin 4.0 Influenza Type A (PCR) POSITIVE A Influenza Type B (PCR) NEGATIVE RSV RNA Qual (PCR) NEGATIVE SARS-CoV-2 RNA (RT-PCR) NEGATIVE Imaging Radiologist's Impressions: Impressions Chest X-Ray 08/11/23 14:38 IMPRESSION: No acute intracranial process seen. Assessment and Plan (1) Influenza: Status: Acute (2) Nocturnal hypoxemia: Status: Acute Plan 78 year old women admitted with acute Hypoxic respiratory failure secondary to COPD and Influenza Viral sepsis Fever, tachycardia, tachypnea, Influenza A Treat symptoms Acute hypoxic respiratory failure secondary to Influenza A and COPD exacerbation with likely bronchitis Tamiflu IV solumedrol scheduled duonebs supplemental oxygen Azithromycin PAF CCB, xarelto CAD CCB, statin GERD PPI Mental health continue home medications DVT prophylaxis with xarelto Full code patient will require at least 48 hours for tx of resp failure secondary to COPD and flu requiring close monitoring due to resp failure and patients hx of CAD Quality Stroke Does the patient have a stroke diagnosis?: No VTE Prior VTE?: No VTE Risk Level:: Medical - moderate - high VTE Device Contraindication: Treatment Not Indicated VTE Drug Contraindication: N/A - Med Ordered
--- NOTE | 2023-08-11 16:55 | PHA.MEDREC ---
Pharmacy Consult ? Medication Reconciliation Pharmacy has completed the medication reconciliation. Patient just discharge from [facility] on 08/04/23 where med rec was completed by FELIZ Fraire. Spoke with patient who reported medications. Report clonazepam she takes BID instead of prn. Patient reported pravastatin but only has claim history for atorvastatin. Patient reports 2 more days of doxycycline. Alessandra Suarez, PharmD
[2023-08-11] MEDS: Azithromycin 500 MG in 0.9 % Sodium Chloride 250 ML 125 MG IV (17:22)
[2023-08-11] MEDS: Enoxaparin Sodium 40 MG/0.4 ML SYRINGE SUBCUT (17:24)
[2023-08-11 17:45] LABS: Troponin-I High Sensitivity 59.5 ng/L (<3.5-17.0)
[2023-08-11 20:45] LABS: Troponin-I High Sensitivity 181.7 ng/L (<3.5-17.0)
--- NOTE | 2023-08-11 20:56 | PC.NURSE ---
Critical lab received: Troponin 181.7 [place] text sent to Dr. José Luis Shipman. No new orders received at this time.
[2023-08-11] MEDS: Fluticasone Propionate 100 MCG BLST.W.DEV 1 PUFF INHALE (21:35)
[2023-08-11] MEDS: clonazePAM 0.5 MG TABLET PO (22:09)
[2023-08-11] MEDS: traZODone HCL 50 MG TABLET 150 MG PO (22:09)
[2023-08-12] VITALS (10 sets, daily range): BP systolic 104–145; BP diastolic 61–89; PULSE 70–109; RESP 18–24; TEMP 36–36.9; O2SAT 91–97
[2023-08-12] MEDS: 0.9 % Sodium Chloride Flush 3 ML SYRINGE IVFLUSH ×4 (00:28→20:08)
--- NOTE | 2023-08-12 02:25 | MHC.EDTECH ---
This tech took over care of patient at 0100AM,Hourly rounds and vitals completed,patient was a 1 assist to commode with a steady gait,patient urinated a small amount,lane-care giving, Belonging list completed and copy placed in chart.call dawson in reach
--- NOTE | 2023-08-12 04:08 | MHC.EDTECH ---
Hourly rounds completed,patient is resting comfortably at this time,call dawson in reach
[2023-08-12] MEDS: Albuterol Sulfate 90 MCG 8 GM INHALER 2 PUFF INHALE ×2 (04:16→08:17)
--- NOTE | 2023-08-12 04:24 | PC.NURSE ---
Pt reports nasal congestion. Pt is requesting flonase nasal spray that she uses at home that provides relief with this issue. [address] text sent to Dr. José Luis Shipman.
--- NOTE | 2023-08-12 05:37 | MHC.EDTECH ---
Hourly rounds and vitals completed,patient is resting comfortably at this time,call dawson in reach
[2023-08-12 06:20] LABS: Alanine Aminotransferase 11 U/L (0-31); Albumin Level 3.3 g/dL (3.5-5.0); Alkaline Phosphatase 109 U/L (39-117); Anion Gap 9 (12-20); Aspartate Amino Transferase 26 U/L (5-31); Bilirubin Total 0.5 mg/dL (0.0-1.0); Blood Urea Nitrogen 16 mg/dL (9-16); Calcium 8.4 mg/dL (8.4-10.2); Carbon Dioxide 23 mmol/L (22-29); Chloride 108 mmol/L (96-108); Creatinine Clr Calc Pharmacy 47.7; Estimated Glomerular Filt Rate > 60; Glucose Random 149 mg/dL (60-115); Magnesium 1.8 mg/dL (1.6-2.6); Potassium 3.7 mmol/L (3.3-5.1); Sodium 136 mmol/L (135-145); Total Protein 5.9 g/dL (6.5-8.0)
[2023-08-12 06:23] LABS: Hematocrit 37.5 % (37.0-47.0); Hemoglobin 12.6 g/dl (12.0-16.0); Mean Corpuscular HGB Conc 33.6 g/dl (31.0-35.0); Mean Corpuscular Hemoglobin 30.8 pg (27.0-33.0); Mean Corpuscular Volume 91.7 fL (80.0-98.0); Mean Platelet Volume 8.3 fL (9.4-12.3); Platelet Count 231 X10*3/uL (160-400); Red Blood Count 4.09 X10*6/uL (4.20-5.50); Red Cell Distribution Width 15.7 % (11.0-16.0); White Blood Count 8.5 X10*3/uL (4.8-10.8)
[2023-08-12] MEDS: Atorvastatin Calcium 40 MG TABLET PO (08:01)
[2023-08-12] MEDS: Rivaroxaban 20 MG TABLET PO (08:01)
[2023-08-12] MEDS: dilTIAZem HCL CD 120 MG CAP.ER.DEG PO (08:02)
[2023-08-12] MEDS: clonazePAM 0.5 MG TABLET PO ×2 (08:02→20:08)
[2023-08-12] MEDS: Omeprazole 20 MG CAPSULE.DR PO (08:02)
[2023-08-12] MEDS: Oseltamivir Phosphate 75 MG CAPSULE PO (08:03)
[2023-08-12] MEDS: Fluticasone Propionate 100 MCG BLST.W.DEV 1 PUFF INHALE ×2 (08:12→19:52)
--- NOTE | 2023-08-12 09:40 | HO.PM.IMPN ---
Subjective Subjective Date of Service: 08/12/23 Physical Exam Vital Signs: Vital Signs: Last Vital Signs Temp 96.8 F 08/12/23 08:00 Pulse 100 08/12/23 08:00 Resp 18 08/12/23 08:00 BP 133/89 08/12/23 08:00 Pulse Ox 93 08/12/23 08:00 O2 Del Method Nasal Cannula 08/12/23 08:00 O2 Flow Rate 4 08/12/23 08:00 BMI result Body Mass Index 21.9 Objective Data Active Medications Acetaminophen (Acetaminophen 325 Mg Tablet) 650 mg PO Q6H PRN PRN Reason: Pain, Mild (Pain Scale 1-3) Albuterol Sulfate (Albuterol Sulfate 90 Mcg 8 Gm Inhaler) 2 puff INHALE Q6H PRN PRN Reason: bronchospasm Last Admin: 08/12/23 08:17 Dose: 2 puff Documented By: PARESH Atorvastatin Calcium (Atorvastatin Calcium 40 Mg Tablet) 40 mg PO DAILY [facility] Last Admin: 08/12/23 08:01 Dose: 40 mg Documented By: BRIANA Clonazepam (Clonazepam 0.5 Mg Tablet) 0.5 mg PO BID [facility] Last Admin: 08/12/23 08:02 Dose: 0.5 mg Documented By: BRIANA Diltiazem HCl (Diltiazem Hcl Cd 120 Mg Cap.Er.Deg) 120 mg PO DAILY [facility]; Protocol Last Admin: 08/12/23 08:02 Dose: 120 mg Documented By: BRIANA Enoxaparin Sodium (Enoxaparin Sodium 40 Mg/0.4 Ml Syringe) 40 mg SUBCUT Q24H [facility] Last Admin: 08/11/23 17:24 Dose: 40 mg Documented By: VIKRAM Fluticasone Propionate (Fluticasone Propionate 100 Mcg Blst.W.Dev) 1 puff INHALE RBID [facility] Last Admin: 08/12/23 08:12 Dose: 1 puff Documented By: PARESH Azithromycin 500 mg/ Sodium (Chloride) 250 mls @ 125 mls/hr IV Q24H [facility] Last Infusion: 08/11/23 19:22 Dose: Infused Documented By: DIOGENES Meclizine HCl (Meclizine Hcl 25 Mg Tablet) 25 mg PO DAILY PRN PRN Reason: Vertigo Omeprazole (Omeprazole 20 Mg Capsule.) 20 mg PO DAILY@0630 [facility] Last Admin: 08/12/23 08:02 Dose: 20 mg Documented By: BRIANA Ondansetron HCl (Ondansetron Hcl 4 Mg/2 Ml Vial) 4 mg IVPUSH Q8H PRN PRN Reason: Nausea and Vomiting Oseltamivir Phosphate (Oseltamivir Phosphate 30 Mg Capsule) 30 mg PO BID [facility] Stop: 08/16/23 21:01 Rivaroxaban (Rivaroxaban 20 Mg Tablet) 20 mg PO DAILY [facility] Last Admin: 08/12/23 08:01 Dose: 20 mg Documented By: BRIANA Sodium Chloride (0.9 % Sodium Chloride Flush 3 Ml Syringe) 3 ml IVFLUSH QSHIFT [facility] Last Admin: 08/12/23 08:03 Dose: 3 ml Documented By: BRIANA Trazodone HCl (Trazodone Hcl 50 Mg Tablet) 150 mg PO BEDTIME [facility] Last Admin: 08/11/23 22:09 Dose: 150 mg Documented By: DIOGENES Labs 08/12/23 05:50 08/12/23 05:50 Labs: Laboratory Results - last 24 hr 08/11/23 08/11/23 08/11/23 13:31 15:46 19:57 MCV 90.7 MCH 30.8 MCHC 33.9 RDW 15.9 Plt Count 269 MPV 8.2 L Immature Gran % (Auto) 1.7 H Neut % (Auto) 79.4 H Lymph % (Auto) 14.4 L [place] % (Auto) 4.2 Eos % (Auto) 0.2 Baso % (Auto) 0.1 Lymph # (Auto) 1.9 [place] # (Auto) 0.6 Eos # (Auto) 0.0 Baso # (Auto) 0.0 Abs Immat Gran (auto) 0.23 H Absolute Neuts (auto) 10.6 H Absolute Nucleated RBC 0.000 Nucleated RBC % (auto) 0.0 Anion Gap 14 Estim Creat Clear Calc 40.4 Estimated GFR > 60 Random Glucose 101 Lactic Acid 1.9 Calcium 9.3 Magnesium 1.6 Total Bilirubin 0.7 AST 27 ALT 13 Alkaline Phosphatase 140 H Troponin I High Sens 11.5 59.5 H* D 181.7 H* D Total Protein 7.0 Albumin 4.0 Influenza Type A (PCR) POSITIVE A Influenza Type B (PCR) NEGATIVE RSV RNA Qual (PCR) NEGATIVE SARS-CoV-2 RNA (RT-PCR) NEGATIVE 08/12/23 05:50 MCV 91.7 MCH 30.8 MCHC 33.6 RDW 15.7 Plt Count 231 MPV 8.3 L Immature Gran % (Auto) Neut % (Auto) Lymph % (Auto) [place] % (Auto) Eos % (Auto) Baso % (Auto) Lymph # (Auto) [place] # (Auto) Eos # (Auto) Baso # (Auto) Abs Immat Gran (auto) Absolute Neuts (auto) Absolute Nucleated RBC 0.000 Nucleated RBC % (auto) 0.0 Anion Gap 9 L Estim Creat Clear Calc 47.7 Estimated GFR > 60 Random Glucose 149 H Lactic Acid Calcium 8.4 D Magnesium 1.8 Total Bilirubin 0.5 AST 26 ALT 11 Alkaline Phosphatase 109 Troponin I High Sens Total Protein 5.9 L Albumin 3.3 L Influenza Type A (PCR) Influenza Type B (PCR) RSV RNA Qual (PCR) SARS-CoV-2 RNA (RT-PCR) Assessment and Plan (1) Influenza: Status: Acute Plan 78 year old women admitted with acute Hypoxic respiratory failure secondary to COPD and Influenza Viral sepsis Fever, tachycardia, tachypnea, Influenza A Treat symptoms Acute hypoxic respiratory failure secondary to Influenza A and COPD exacerbation with likely bronchitis Tamiflu prednisone 40 mg daily scheduled duonebs supplemental oxygen Azithromycin PAF CCB, xarelto CAD statin GERD PPI Mental health continue home medications DVT prophylaxis with xarelto Full code patient will require at least 48 hours for tx of resp failure secondary to COPD and flu requiring close monitoring due to resp failure and patients hx of CAD Quality Stroke Does the patient have a stroke diagnosis?: No VTE Prior VTE?: No VTE Risk Level:: Medical - moderate - high VTE Device Contraindication: Treatment Not Indicated VTE Drug Contraindication: N/A - Med Ordered
[2023-08-12] MEDS: predniSONE 20 MG TABLET 40 MG PO (09:46)
--- NOTE | 2023-08-12 10:27 | MHC.CM.PN ---
pt lives in a mobile home had no previous servies has a ride home home 02
[2023-08-12] MEDS: Albuterol/Iprat 2.5/0.5MG 3 ML AMPUL.NEB INHALE (11:37)
[2023-08-12] MEDS: Fluticasone Propionate Nasal 16 GM SPRAY 1 SPRAY NOSTRIL-B (13:03)
--- NOTE | 2023-08-12 15:32 | PC.RT ---
pt has home oxygen. She is on 2 liters with ambulation and Nocturnal at 2 liters pt has [employer] as a DME
[2023-08-12] MEDS: Acetaminophen 325 MG TABLET 650 MG PO (15:37)
[2023-08-12] MEDS: Enoxaparin Sodium 40 MG/0.4 ML SYRINGE SUBCUT (17:05)
[2023-08-12] MEDS: Azithromycin 500 MG in 0.9 % Sodium Chloride 250 ML 125 MG IV (17:05)
[2023-08-12] MEDS: Oseltamivir Phosphate 30 MG CAPSULE PO (20:08)
[2023-08-12] MEDS: traZODone HCL 50 MG TABLET 150 MG PO (20:08)
[2023-08-13] VITALS (7 sets, daily range): BP systolic 114–141; BP diastolic 61–92; PULSE 67–93; RESP 14–19; TEMP 36.2–37.2; O2SAT 91–97
[2023-08-13] MEDS: Oseltamivir Phosphate 30 MG CAPSULE PO ×2 (07:49→20:26)
[2023-08-13] MEDS: dilTIAZem HCL CD 120 MG CAP.ER.DEG PO (07:49)
[2023-08-13] MEDS: predniSONE 20 MG TABLET 40 MG PO (07:49)
[2023-08-13] MEDS: clonazePAM 0.5 MG TABLET PO ×2 (07:49→20:26)
[2023-08-13] MEDS: Atorvastatin Calcium 40 MG TABLET PO (07:49)
[2023-08-13] MEDS: Rivaroxaban 20 MG TABLET PO (07:49)
[2023-08-13] MEDS: Fluticasone Propionate 100 MCG BLST.W.DEV 1 PUFF INHALE ×2 (08:01→19:34)
[2023-08-13] MEDS: Albuterol/Iprat 2.5/0.5MG 3 ML AMPUL.NEB INHALE ×2 (08:04→19:34)
--- NOTE | 2023-08-13 12:57 | HO.PM.IMPN ---
Subjective Subjective Date of Service: 08/13/23 Interval History: seen and examined this morning follow up for copd exacerbation, influenza reporting sob, nasal congestion, cough, still requiring supplemental o2 Review of Systems Review of Systems: Yes all other systems are reviewed and are negative Constitutional Constitutional: Denies chills and Denies fever(s) Cardiovascular Cardiovascular: Denies chest pain and Denies palpitations Respiratory Respiratory: Reports cough Endocrine Endocrine: Denies palpitations Physical Exam Vital Signs: Vital Signs: Last Vital Signs Temp 97.1 F 08/13/23 07:01 Pulse 83 08/13/23 08:04 Resp 16 08/13/23 08:04 BP 129/73 08/13/23 07:01 Pulse Ox 96 08/13/23 07:01 O2 Del Method Nasal Cannula 08/13/23 07:01 O2 Flow Rate 3 08/13/23 07:01 BMI result Body Mass Index 21.9 Const: General: cooperative, comfortable, alert and awake Nutritional Appearance: thin Orientation/consciousness: patient oriented x3 Resp: Effort & Inspection: normal respiratory effort, able to speak in complete sentences, no respiratory distress and no use of accessory muscles Cardio: Rate: regular rate GI: Inspection: No distended Palpation (GI): Soft to palpation and nontender Neuro: General: patient oriented x3, moves all extremities and CN's II-XI intact bilaterally Extrem: General: Yes no pedal edema Objective Data Active Medications Acetaminophen (Acetaminophen 325 Mg Tablet) 650 mg PO Q6H PRN PRN Reason: Pain, Mild (Pain Scale 1-3) Last Admin: 08/12/23 15:37 Dose: 650 mg Documented By: DARLIN Albuterol Sulfate (Albuterol Sulfate 90 Mcg 8 Gm Inhaler) 2 puff INHALE Q6H PRN PRN Reason: bronchospasm Last Admin: 08/12/23 08:17 Dose: 2 puff Documented By: PARESH Albuterol/Ipratropium (Albuterol/Iprat 2.5/0.5mg 3 Ml Ampul.Neb) 3 ml INHALE RBID [facility] Last Admin: 08/13/23 08:04 Dose: 3 ml Documented By: WILLIAM Atorvastatin Calcium (Atorvastatin Calcium 40 Mg Tablet) 40 mg PO DAILY [facility] Last Admin: 08/13/23 07:49 Dose: 40 mg Documented By: GREGG Clonazepam (Clonazepam 0.5 Mg Tablet) 0.5 mg PO BID [facility] Last Admin: 08/13/23 07:49 Dose: 0.5 mg Documented By: GREGG Diltiazem HCl (Diltiazem Hcl Cd 120 Mg Cap.Er.Deg) 120 mg PO DAILY [facility]; Protocol Last Admin: 08/13/23 07:49 Dose: 120 mg Documented By: GREGG Enoxaparin Sodium (Enoxaparin Sodium 40 Mg/0.4 Ml Syringe) 40 mg SUBCUT Q24H [facility] Last Admin: 08/12/23 17:05 Dose: 40 mg Documented By: DARLIN Fluticasone Propionate (Fluticasone Propionate 100 Mcg Blst.W.Dev) 1 puff INHALE RBID [facility] Last Admin: 08/13/23 08:01 Dose: 1 puff Documented By: WILLIAM Fluticasone Propionate (Fluticasone Propionate Nasal 16 Gm [place]) 1 spray NOSTRIL-B BID PRN PRN Reason: Dry Nasal Passages Last Admin: 08/12/23 13:03 Dose: 1 spray Documented By: DARLIN Comments: pharmacy bringing new label. Azithromycin 500 mg/ Sodium (Chloride) 250 mls @ 125 mls/hr IV Q24H [facility] Last Infusion: 08/12/23 19:46 Dose: Infused Documented By: FREDY Meclizine HCl (Meclizine Hcl 25 Mg Tablet) 25 mg PO DAILY PRN PRN Reason: Vertigo Omeprazole (Omeprazole 20 Mg Capsule.) 20 mg PO DAILY@0630 [facility] Last Admin: 08/12/23 08:02 Dose: 20 mg Documented By: BRIANA Ondansetron HCl (Ondansetron Hcl 4 Mg/2 Ml Vial) 4 mg IVPUSH Q8H PRN PRN Reason: Nausea and Vomiting Oseltamivir Phosphate (Oseltamivir Phosphate 30 Mg Capsule) 30 mg PO BID [facility] Stop: 08/16/23 21:01 Last Admin: 08/13/23 07:49 Dose: 30 mg Documented By: GREGG Prednisone (Prednisone 20 Mg Tablet) 40 mg PO DAILY [facility] Last Admin: 08/13/23 07:49 Dose: 40 mg Documented By: GREGG Rivaroxaban (Rivaroxaban 20 Mg Tablet) 20 mg PO DAILY [facility] Last Admin: 08/13/23 07:49 Dose: 20 mg Documented By: GREGG Sodium Chloride (0.9 % Sodium Chloride Flush 3 Ml Syringe) 3 ml IVFLUSH QSHIFT [facility] Last Admin: 08/13/23 08:50 Dose: Not Given Documented By: GREGG Non-Admin Reason: Previously Administered Trazodone HCl (Trazodone Hcl 50 Mg Tablet) 150 mg PO BEDTIME [facility] Last Admin: 08/12/23 20:08 Dose: 150 mg Documented By: FREDY Labs 08/12/23 05:50 08/12/23 05:50 Microbiology Microbiology Results: Microbiology 08/11/23 13:48 Blood Culture - Preliminary Blood - Venous No growth after 24 hours. 08/11/23 13:31 Blood Culture - Preliminary Blood - Venous No growth after 24 hours. Assessment and Plan (1) Influenza: Status: Acute (2) COPD (chronic obstructive pulmonary disease): Status: Acute Plan 78 year old women admitted with acute Hypoxic respiratory failure secondary to COPD and Influenza Viral sepsis Fever, tachycardia, tachypnea due to Influenza A fever resolved, tachycardia and tachypnea resolved Acute hypoxic respiratory failure secondary to Influenza A and COPD exacerbation with likely bronchitis continue Tamiflu continue prednisone 40 mg daily continue azithromycin scheduled duonebs supplemental oxygen, wean as tolerated; uses noctural oxygen at baseline elevated troponin no chest pain likely due to demand, but since was increasing, will repeat to confirm PAF continue diltiazem, xarelto CAD statin GERD PPI Mental health continue home medications DVT prophylaxis with xarelto Full code dispo - seen by PT, recommend home without services when medically ready require ongoing inpatient stay for tx of resp failure secondary to COPD and flu requiring close monitoring due to resp failure and patients hx of CAD Quality Stroke Does the patient have a stroke diagnosis?: No VTE Prior VTE?: No VTE Risk Level:: Medical - moderate - high VTE Device Contraindication: Treatment Not Indicated VTE Drug Contraindication: N/A - Med Ordered
[2023-08-13] MEDS: Fluticasone Propionate Nasal 16 GM SPRAY 1 SPRAY NOSTRIL-B (13:58)
[2023-08-13 14:16] LABS: Troponin-I High Sensitivity 75.5 ng/L (<3.5-17.0)
[2023-08-13] MEDS: 0.9 % Sodium Chloride Flush 3 ML SYRINGE IVFLUSH ×2 (17:28→20:26)
[2023-08-13] MEDS: Azithromycin 500 MG in 0.9 % Sodium Chloride 250 ML 125 MG IV (17:28)
[2023-08-13] MEDS: traZODone HCL 50 MG TABLET 150 MG PO (20:26)
[2023-08-14 03:11] VITALS: BP 110/56; PULSE 74; RESP 18; TEMP 36.5; O2SAT 99
[2023-08-14] MEDS: Omeprazole 20 MG CAPSULE.DR PO (06:04)
[2023-08-14 08:00] VITALS: BP 106/61; PULSE 86; RESP 18; TEMP 36.2; O2SAT 92
[2023-08-14] MEDS: Fluticasone Propionate 100 MCG BLST.W.DEV 1 PUFF INHALE (08:11)
[2023-08-14 08:15] VITALS: PULSE 74; RESP 18; O2SAT 96
[2023-08-14] MEDS: Albuterol/Iprat 2.5/0.5MG 3 ML AMPUL.NEB INHALE (08:15)
[2023-08-14] MEDS: predniSONE 20 MG TABLET 40 MG PO (08:19)
[2023-08-14] MEDS: Atorvastatin Calcium 40 MG TABLET PO (08:19)
[2023-08-14] MEDS: Oseltamivir Phosphate 30 MG CAPSULE PO (08:19)
[2023-08-14] MEDS: dilTIAZem HCL CD 120 MG CAP.ER.DEG PO (08:19)
[2023-08-14] MEDS: clonazePAM 0.5 MG TABLET PO (08:19)
[2023-08-14] MEDS: Rivaroxaban 20 MG TABLET PO (08:19)
[2023-08-14] MEDS: 0.9 % Sodium Chloride Flush 3 ML SYRINGE IVFLUSH (08:20)
--- NOTE | 2023-08-14 11:38 | PC.RT ---
pt sats on room air were 90%-93%. Pt was off oxygen for appx. 20 minutes. She does not need it at rest. Pt will still need 2 liters for ambulation and nocturnal per her last prescription. She has a [employer] o2 tank at bedside for discharge today.
--- NOTE | 2023-08-14 11:49 | P.DS_ITS ---
DS: Providers Provider Date of Service: 08/14/23 Date of admission: 08/11/23 15:30 Date of discharge: 08/14/23 Primary care physician: Jung Schaefer [facility] Attending physician on discharge: Darin Tay Discharging clinician: Denise Arenas DS: Diagnosis Discharge Diagnosis (1) Influenza: Status: Acute (2) COPD (chronic obstructive pulmonary disease): Status: Acute (3) Acute bronchitis: Status: Acute DS: Summary Hospital Course Hospital Course: From H&P on the day of admission 78 year old woman with hypertension, coronary artery disease, bilateral carotid stenosis, AFib presented to the ER with shortness breath. She reported that she felt shortness of breath today and then noticed later in the day that her oxygen was kinked min that she was not getting enough oxygen. She reported that since February of last year she has been feeling pretty unwell from her COPD and has been more short of breath in the last several days. She reported her last cigarette was approximately 7 days ago and has not smoked since, she has been smoking since he was 9 years old. She denied fever, chills, nausea, vomiting, diarrhea, recent travel, sick contacts. She reports presenting to the ER a week ago for similar symptoms and she was sent home on oxygen and antibiotics. Patient reports compliance with her ABX, oxygen, and all home meds. Labs WNL, mildly elevated WBC, blood pressure on the lower side. She was given a dose of Levaquin, Tylenol, Solu-Medrol, levalbuterol in 1 L of IV fluid. She will be admitted for further management and treatment of acute hypoxic respiratory failure secondary to influenza a and COPD exacerbation. Viral sepsis Fever, tachycardia, tachypnea due to Influenza A/ viral sepsis. fever resolved, tachycardia and tachypnea resolved Acute hypoxic respiratory failure secondary to Influenza A and COPD exacerbation with likely bronchitis She was treated with Tamiflu , oral steroids and azithromycin. uses oxygen at night and prn. she was weaned off of oxygen at rest, her breathing has improved and she is eager to return home. elevated troponin no chest pain. likely due to demand,repeat trending down Patient was evaluated by Physical therapy, she was able to ambulate without any significant shortness of breath. She was deemed to be at her functional baseline with good safety awareness and did not meet criteria for home physical therapy. Time Attestation Total time managing care of this patient today: 36 mintues. Discharge Coordination Time (in mins): 36 Quality: Safe Use of Opioids Does Pt have an Active Cancer Diagnosis on the Problem List?: No Quality: Stroke Does the patient have a stroke diagnosis?: No Physical Exam Vital Signs: Vital Signs: Last Vital Signs Temp 97.1 F 08/14/23 08:00 Pulse 74 08/14/23 08:15 Resp 18 08/14/23 08:15 BP 106/61 08/14/23 08:00 Pulse Ox 92 08/14/23 08:00 O2 Del Method Nasal Cannula 08/14/23 08:00 O2 Flow Rate 3.0 08/14/23 08:00 BMI result Body Mass Index 21.9 Const: General: cooperative, comfortable, alert and awake Nutritional Appearance: thin Orientation/consciousness: patient oriented x3 Resp: Effort & Inspection: normal respiratory effort, able to speak in complete sentences, no respiratory distress and no use of accessory muscles Cardio: Rate: regular rate GI: Inspection: No distended Palpation (GI): Soft to palpation and nontender Neuro: General: patient oriented x3, moves all extremities and CN's II-XI in tact bilaterally Extrem: General: Yes no pedal edema DS: Data Data Completed and Pending Labs on day of discharge: Laboratory Results - last 24 hr 08/13/23 13:38 Troponin I High Sens 75.5 H* D Preliminary micro results at discharge 08/11/23 13:48 Blood Culture - Preliminary Blood - Venous No growth after 48 hours. 08/11/23 13:31 Blood Culture - Preliminary Blood - Venous No growth after 48 hours. Discharge Plan Discharge Anticipated Discharge Date/Time: 08/14/23 11:32 Patient Disposition: Home, Self-Care Discharge Diagnosis: influenza copd exacerbation/acute bronchitis Referrals: Jung Schaefer [employer] [employer] [Primary Care Provider] - 1 Week Discharge Medications: New prednisone 20 mg Tablet 40 mg PO DAILY 3 Days Qty: 6 0RF oseltamivir 30 mg Capsule 30 mg PO BID Qty: 5 0RF azithromycin 250 mg tablet 250 mg PO DAILY 3 Days Qty: 3 0RF Continued albuterol sulfate 90 mcg/actuation HFA aerosol inhaler 2 puff PO Q6H PRN (Reason: bronchospasm) 30 Days Qty: 8.5 3RF albuterol sulfate 2.5 mg /3 mL (0.083 %) solution for nebulization 2.5 mg inhalation TID Qty: 180 3RF Flovent HFA 110 mcg/actuation HFA aerosol inhaler 1 puff inhalation BID Qty: 36 1RF Xarelto 20 mg tablet 20 mg PO DAILY 90 Days Qty: 90 3RF atorvastatin 40 mg tablet 40 mg PO DAILY Qty: 90 3RF diltiazem HCl [Tiadylt ER] 120 mg capsule,extended release 24 hr 120 mg PO DAILY Qty: 30 6RF meclizine 25 mg Tablet 25 mg PO DAILY PRN (Reason: Vertigo) omeprazole 20 mg Capsule,Delayed Release(Dr/Ec) 20 mg PO DAILY trazodone 150 mg tablet 150 mg PO BEDTIME ipratropium-albuterol 0.5 mg-3 mg(2.5 mg base)/3 mL solution for nebulization 3 ml inhalation Q4-6H PRN (Reason: wheezing) Qty: 90 0RF clonazepam 0.5 mg tablet 0.5 mg PO BID Discontinued doxycycline monohydrate [Monodox] 100 mg capsule 100 mg PO BID Qty: 14 0RF Rx Instructions: FINISH 08/12/23 No Action (DME) Ensure See Rx Instructions .Route .MEDSUPPLY Qty: 30 11RF Rx Instructions: [facility] [employer] to [facility] Attn: Angela Bowman FAX [phone] tel [phone] ext [phone] Discharge Orders: Discharge Order (Routine); Ordered 08/14/23 Ordered By: Denise Arenas Activity on Discharge: As tolerated Stand Alone Forms: Patient Portal Discharge page Care Plan Goals: see below Health Concerns: influenza copd exacerbation acute bronchitis Plan of Treatment: Complete course of antibiotics as prescribed Complete course of Tamiflu for influenza Complete short course of steroids Continue home breathing treatments Call to schedule a follow-up appointment with PCP Call 911 or return to the emergency department for any new worsening symptoms Assessment: see discharge summary
--- NOTE | 2023-08-14 12:38 | PC.NURSE ---
While pt in bathroom, HR increased to 140 on counter hand, sinus tachycardia. Pt asymptomatic, no chest pain, lightheadedness or dizziness. Radial pulse 100. ALVA Bojorquez made aware.
--- NOTE | 2023-08-14 12:40 | MHC.CM.PN ---
pt dcd home no servies indicated
== END 2023-08-14 14:18 | disposition home or self-care (01) | DRG 871 ==
LOC: HO.ED 15:19 → HO.EDOVER 15:55 → HO.S3 08-12 07:29
PROVIDERS: Internal Medicine; Physician Assistant Medical; Admitting Provider Nurse Practitioner Acute Care; Emergency Provider Student in an Organized Health Care Education/Training Program; PCP Nurse Practitioner Family; Visit Provider Physician Assistant Medical
DX: A41.89 Other specified sepsis (principal); J96.01 Acute respiratory failure with hypoxia; J44.1 Chronic obstructive pulmonary disease with (acute) exacerbation; I25.10 Atherosclerotic heart disease of native coronary artery without angina pectoris; J10.1 Influenza due to other identified influenza virus with other respiratory manifestations; I48.0 Paroxysmal atrial fibrillation; K21.9 Gastro-esophageal reflux disease without esophagitis; Z20.822 Contact with and (suspected) exposure to COVID-19; Z99.81 Dependence on supplemental oxygen; Z87.891 Personal history of nicotine dependence; Z79.51 Long term (current) use of inhaled steroids; Z79.899 Other long term (current) drug therapy
CPT/HCPCS: 0241U; 36415; 71046; 80053; 83605; 83735; 84484; 85025; 85027; 87040; 93005; 94640; 97161; 99285; J0456; J1650; J1956

== ENCOUNTER → 2023-08-11 12:59 | Outpatient (BNV) | payer OTHER, SELFPAY | PROVIDERS: Admitting Provider Nurse Practitioner Acute Care; Emergency Provider Student in an Organized Health Care Education/Training Program; PCP Nurse Practitioner Family; Visit Provider Internal Medicine Cardiovascular Disease | DX: R00.0 Tachycardia, unspecified (principal) | CPT/HCPCS: 93010 ==

== ENCOUNTER → 2023-08-11 15:30 | Outpatient (BNV) | payer OTHER, SELFPAY | PROVIDERS: Admitting Provider Nurse Practitioner Acute Care; Emergency Provider Student in an Organized Health Care Education/Training Program; PCP Nurse Practitioner Family; Visit Provider Nurse Practitioner Acute Care | DX: J44.1 Chronic obstructive pulmonary disease with (acute) exacerbation (principal); J96.01 Acute respiratory failure with hypoxia; J11.1 Influenza due to unidentified influenza virus with other respiratory manifestations | CPT/HCPCS: 99223; 99232; 99239 ==

== ENCOUNTER 2023-08-17 16:04 | Outpatient (AMB) | payer OTHER, SELFPAY ==
[2023-08-17 16:06] VITALS: BP 140/60; PULSE 76; O2SAT 93; BMI 22.3
--- NOTE | 2023-08-17 16:06 | MHC.PC.OV ---
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 Accompanied by: Self / Same As Patient Allergies Cephalosporins [CEPHALOSPORINS] Allergy (Unknown, Verified 08/17/23 16:07) UNKNOWN clonidine [CLONIDINE] Allergy (Unknown, Verified 08/17/23 16:07) UNKNOWN gabapentin [GABAPENTIN] Allergy (Unknown, Verified 08/17/23 16:07) UNKNOWN mirtazapine [From REMERON] Allergy (Unknown, Verified 08/17/23 16:07) UNKNOWN naproxen Allergy (Unknown, Verified 08/17/23 16:07) UNKNOWN tramadol Allergy (Unknown, Verified 08/17/23 16:07) UNKNOWN bupropion [From WELLBUTRIN] Adverse Reaction (Unknown, Verified 08/17/23 16:07) Shaky Tobacco use date assessed: 08/17/23 Fall risk assessment: 1 Fall in past year Last assessed Fall Risk: 08/17/23 Dental Screening Dental Screen Date: 08/17/23 Did you have a dental visit in the last 12 months?: Yes Did you have a dental problem in the last 6 months where you did not have access to dental care?: No Was dental information given to patient?: Patient has dentist HPI Annual PE HPI Details Pt was seen in the ER on 3/5 c/o shortness of breath. Pt was given solu-medrol, duoneb, and oxygen by EMS. Labs showed slightly elevated WBC count of 13.4, otherwise unremarkable. She was negative for COVID and RSV. Pt tested positive for influenza A. EKG was unremarkable. Chest XR showed no acute process. Pt was febrile. She was initially satting 88% on 2L oxygen, this was increased to 4L and pt started saturating in the low 90s. Pt was given levaquin, tylenol, solu-medrol, and levalbuterol in 1L IV fluids. She was admitted for acute hypoxic respiratory failure secondary to influenza A and COPD exacerbation. Pt's fever resolved. Her tachycardia and tachypnea also resolved. She was d/c with tamiflu, prednisone, and azithromycin. Pt reports doing well. She is wearing 2L O2 (which is set up at her house). She reports some intermittent shortness of breath when she is off oxygen. Pt is following up with pulmonology and cardiology in the near future. She has not smoked in over a week. Denies fever, chills, and chest pain. [facility] Medical History (Updated 08/17/23 @ 17:07 by MAYA Hartley) Nocturnal hypoxemia Basal cell carcinoma History of COVID-19 (~06/2021) Personal history of nicotine dependence Osteopenia (~2009) History of non-ST elevation myocardial infarction (NSTEMI) (~04/2016) COPD (chronic obstructive pulmonary disease) Depression with anxiety Brain aneurysm Bilateral carotid artery stenosis PAF (paroxysmal atrial fibrillation) (~04/2016) Atherosclerotic cardiovascular disease Surgical History History of inguinal hernia repair, bilateral (~2018) History of skin surgery History of arthroscopic surgery of shoulder (~2009) History of carpal tunnel release History of bladder surgery History of thumb surgery History of tubal ligation History of total hysterectomy Family History Father No problems noted. Mother No problems noted. Brother Stroke Social History Household Members: None Housing: Other Housing Other:: mobile home Are you a primary medical care evaluation specialist to a significant other at home: No Do you presently have visiting nurse or other home services: Yes ([facility] q6 months) Patient Tobacco Use Status: Former Tobacco user Tobacco use type: Cigarette Cigarettes Per Day: 0.5 Years Smoked: 68 e-Cigarette/Vaping Use: Former Use Second Hand Smoke Exposure: Yes Substance Use Type: Marijuana Advance Directives Date on File: 08/03/23 service: No Current occupational status: retired and disabled Cognitive needs: No Hearing needs: No Vision needs: No Questionnaire Thrive Questionnaire Date Thrive assessed: 08/12/23 ARPITA-7 AMB Questionnaire ARPITA-7 Date ARPITA - 7 assessed: 01/08/22 Source: Developed by Drs. Celso Chauhan, Naila Wilkins, Iasel French and colleagues, with an educational edmundo from [employer]. Review of Systems Const Reports as per HPI Physical exam (Primary Care) Vital Signs: Last Vital Signs Pulse 76 08/17/23 16:06 BP 120/60 08/17/23 17:10 Pulse Ox 93 08/17/23 16:06 Oxygen Delivery Method Room Air 08/17/23 16:06 BMI result Body Mass Index 22.3 Tobacco/Smoking Status: Tobacco use Status Tobacco use date assessed 08/17/23 08/17/23 16:09 Patient Tobacco Use Status Former Tobacco user 08/17/23 16:09 Tobacco use type Cigarette 08/17/23 16:09 e-Cigarette/Vaping Use Former Use 08/17/23 16:09 Thrive Assessment: Date of Thrive Assessment Date Thrive assessed 08/12/23 08/17/23 16:09 Const General: cooperative Orientation/consciousness: patient oriented x3 Resp Effort & Inspection: normal respiratory effort Auscultation: diminished lung sounds (though moving air) bilateral Cardio Rate: regular rate Rhythm: regular rhythm Heart sounds: S1 normal heart sound present and S2 normal heart sound present Neuro General: patient oriented x3 Extrem Right lower extremity: no edema Left lower extremity: no edema Psych Appearance: grossly normal Mental Status: mental status grossly normal Speech and movement: Normal speech and movement present Affect: normal affect Attitude: cooperative Thought process: Normal thought process present Thought content: Normal thought content present Insight: Good insight present (Psych) Judgement: Good judgement present (Psych) Assessment and Plan Assessment & Plan (1) Influenza: Code(s): J11.1 - Influenza due to unidentified influenza virus with other respiratory manifestations (2) COPD (chronic obstructive pulmonary disease): Code(s): J44.9 - Chronic obstructive pulmonary disease, unspecified Plan: following up with pulmonary, pt has quit smoking, in good spirits Plan The patient agreed to the use of a bilingual medical receptionist for this encounter. Scribed for MAYA Yeung by Tiana Millan bilingual medical receptionist, on 08/17/2023 at 16:55 EST. Medications: New cholecalciferol (vitamin D3) 50 mcg PO DAILY 90 caps 0RF Coding Level of Care Code Est Pt Level 3 (56424) Diagnoses Influenza J11.1 COPD (chronic obstructive pulmonary disease) J44.9
[2023-08-17 17:10] VITALS: BP 120/60
== END 2023-08-17 17:15 | disposition home or self-care (01) ==
PROVIDERS: PCP Nurse Practitioner Family; Visit Provider Nurse Practitioner Family
DX: J11.1 Influenza due to unidentified influenza virus with other respiratory manifestations (principal); J44.9 Chronic obstructive pulmonary disease, unspecified
CPT/HCPCS: 99213

== ENCOUNTER 2023-10-05 13:26 | Outpatient (AMB) | payer OTHER, SELFPAY ==
[2023-10-05 14:25] VITALS: BP 114/72; PULSE 82; BMI 23.1
--- NOTE | 2023-10-05 14:25 | MHC.OFFVIS ---
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: No Allergies Cephalosporins [CEPHALOSPORINS] Allergy (Unknown, Verified 10/05/23 14:27) UNKNOWN clonidine [CLONIDINE] Allergy (Unknown, Verified 10/05/23 14:27) UNKNOWN gabapentin [GABAPENTIN] Allergy (Unknown, Verified 10/05/23 14:27) UNKNOWN mirtazapine [From REMERON] Allergy (Unknown, Verified 10/05/23 14:27) UNKNOWN naproxen Allergy (Unknown, Verified 10/05/23 14:27) UNKNOWN tramadol Allergy (Unknown, Verified 10/05/23 14:27) UNKNOWN bupropion [From WELLBUTRIN] Adverse Reaction (Unknown, Verified 10/05/23 14:27) Shaky Medication List - Last Reconciled 10/05/23 by NATALIE CharlesC albuterol sulfate 90 mcg/actuation 2 puffs PO Q6H PRN 30 days albuterol sulfate 2.5 mg (3 mL) inhalation TID atorvastatin 40 mg PO DAILY cholecalciferol (vitamin D3) 50 mcg PO DAILY clonazepam 0.5 mg PO BID diltiazem HCl ER (Tiadylt ER) 120 mg PO DAILY [Ensure Chocolate ] fluticasone propionate 110 mcg/actuation (Flovent HFA) 1 puff inhalation BID ipratropium-albuterol 0.5 mg-3 mg(2.5 mg base)/3 mL 3 mL inhalation Q4-6H PRN meclizine 25 mg PO DAILY PRN rivaroxaban (Xarelto) 20 mg PO DAILY 90 days trazodone 150 mg PO BEDTIME HPI HPI RS 6 month f/u HS: Details: Tova is a 78-year-old female with past medical history of hypertension, hyperlipidemia, COPD, carotid stenosis, nonobstructive CAD, paroxysmal atrial fibrillation who was recently admitted to [facility] with increased shortness of breath and treated for hypoxic respiratory failure. Her troponin levels were elevated and it was thought to be related to demand. She now presents for follow-up. Today she reports she has been doing better since her hospital discharge. She feels her breathing is almost back to normal. She does not require oxygen during the daytime. She will wear it at night as needed. No PND, orthopnea or edema. No chest discomfort at rest or with activity. No lightheadedness, presyncope, syncope, falls. She is chronic back pain and had a spinal stimulator placed since last visit. She continues to have back, hip and thigh pain bilateral. She uses a cane for ambulation. She is taking her meds as directed. [facility] Medical History Nocturnal hypoxemia Basal cell carcinoma History of COVID-19 (~06/2021) Personal history of nicotine dependence Osteopenia (~2009) History of non-ST elevation myocardial infarction (NSTEMI) (~04/2016) COPD (chronic obstructive pulmonary disease) Depression with anxiety Brain aneurysm Bilateral carotid artery stenosis PAF (paroxysmal atrial fibrillation) (~04/2016) Atherosclerotic cardiovascular disease Surgical History History of inguinal hernia repair, bilateral (~2018) History of skin surgery History of arthroscopic surgery of shoulder (~2009) History of carpal tunnel release History of bladder surgery History of thumb surgery History of tubal ligation History of total hysterectomy Family History Father No problems noted. Mother No problems noted. Brother Stroke Social History Household Members: None Housing: Other Housing Other:: mobile home Are you a primary neurocritical care physician to a significant other at home: No Do you presently have visiting nurse or other home services: Yes ([facility] q6 months) Patient Tobacco Use Status: Former Tobacco user Tobacco use type: Cigarette Cigarettes Per Day: 0.5 Years Smoked: 68 e-Cigarette/Vaping Use: Former Use Second Hand Smoke Exposure: Yes Substance Use Type: Marijuana Advance Directives Date on File: 08/03/23 service: No Current occupational status: retired and disabled Cognitive needs: No Hearing needs: No Vision needs: No Review of Systems Const All systems reviewed & are unremarkable except as noted in HPI and below ENT Denies dizziness Card Denies chest pain, Denies chest pain at rest, Denies chest pain with activity, Denies rapid heart rate, Denies pedal edema, Denies edema, Denies leg edema, Denies lightheadedness, Denies palpitations, Denies dyspnea, Reports dyspnea on exertion and Denies orthopnea Resp Denies cough, Denies dyspnea and Reports dyspnea on exertion GI Denies hematochezia and Denies change in stool character Musc Details: back, hip and thigh pain Reports abnormal gait, Denies limited range of motion, Denies muscle cramps, Denies muscle weakness, Denies numbness, Denies radiating pain into limb, Denies stiffness and Denies tingling Neuro Reports abnormal gait, Denies dizziness, Denies numbness and Denies tingling Endo Denies palpitations Physical Exam Vital Signs: Last Vital Signs Pulse 82 10/05/23 14:25 BP 114/72 10/05/23 14:25 BMI result Body Mass Index 23.1 Const General: cooperative, healthy appearing, comfortable and no acute distress Orientation/consciousness: patient oriented x3 Neck Neck: Yes normal visual inspection and Yes no JVD Resp Effort & Inspection: normal respiratory effort Auscultation: clear to auscultation bilaterally, no crackles, no rales, no rhonchi and no wheezes Cardio Jugular venous distension: no JVD Rate: regular rate Rhythm: regular rhythm Heart sounds: S1 normal heart sound present, S2 normal heart sound present, no murmurs and no rubs Neuro General: patient oriented x3 Extrem General: Yes normal to inspection, No no pedal edema and No calf tenderness Psych Appearance: grossly normal Mental Status: mental status grossly normal Speech and movement: Normal speech and movement present Assessment & Plan Assessment & Plan (1) COPD exacerbation: Code(s): J44.1 - Chronic obstructive pulmonary disease with (acute) exacerbation Category: Medical Plan: Recent [facility] admission for hypoxic respiratory failure, COPD exacerbation. Did not appear to have Congestive heart failure. Troponin levels were elevated up to 181.7 and thought to be related to demand. She does have p.r.n. oxygen to use at home. She continues to smoke marijuana. At this point she says her breathing has greatly improved. She is only using oxygen nighttime. On examination today she does not appear fluid overloaded. Signs and symptoms of heart failure reviewed with her. (2) Elevated troponin: Code(s): R79.89 - Other specified abnormal findings of blood chemistry Category: Medical Plan: Troponin elevation during recent hospital admission. EKG did not show acute ST and T-wave abnormalities. Echocardiogram was not done at that time. A nuclear stress test had been done 02/26/2023 which showed normal myocardial perfusion imaging. She has a reported history of nonobstructive CAD. She has no reports of anginal sounding symptoms. At this time will check an echocardiogram to assess for reduction in EF or regional wall motion abnormalities. Plan to call her with results. She has not on aspirin as she is on Xarelto. She is on atorvastatin and on diltiazem. Beta-babs is avoided as she has COPD. (3) Atherosclerotic cardiovascular disease: Comment: Coronary CT from 2018-moderate calcific plaque, most evident in the mid LAD where it is nearly circumferential with moderate luminal narrowing in the 50-69% range. Moderate nearly circumferential calcific plaque in the mid RCA with about 50% stenosis. Mild scattered narrowings elsewhere. Code(s): I25.10 - Atherosclerotic heart disease of [place] coronary artery without angina pectoris Category: Medical Plan: As above (4) PAF (paroxysmal atrial fibrillation): Onset Date: ~04/2016 Comment: (onset 04/2016) - follows w/[facility]--last saw 06/2021-states has not been called for follow-up appt Code(s): I48.0 - Paroxysmal atrial fibrillation Category: Medical Plan: History of paroxysmal atrial fibrillation. Currently suppressed with diltiazem. Pulse is regular on examination today. She is on Xarelto for anticoagulation. No bleeding issues reported. Continue current management. (5) Bilateral carotid artery stenosis: Code(s): I65.23 - Occlusion and stenosis of bilateral carotid arteries Category: Medical Plan: History of bilateral carotid stenosis. CTA of the head and neck done 04/18/2020 shows atherosclerotic disease of bilateral ICAs causing less than 50% stenosis. Patient reports that her brother has had a stroke in the past. Will update a carotid ultrasound to assess for degree of ICA stenosis. Continue statin and Xarelto. (6) Hospital discharge follow-up: Code(s): Z09 - Encounter for follow-up examination after completed treatment for conditions other than malignant neoplasm Category: Medical Plan: As above Plan Time spent on chart review, documentation, interview and assessment Orders: Orders CA echo transthoracic complete 10/05/23 I25.10 - Atherosclerotic heart disease of [place] coronary artery without angina pectoris, R79.89 - Other specified abnormal findings of blood chemistry US carotid duplex BI 10/05/23 I65.23 - Occlusion and stenosis of bilateral carotid arteries Coding Level of Care Code Est Pt Level 4 (04997) Diagnoses COPD exacerbation J44.1 Elevated troponin R79.89 Atherosclerotic cardiovascular disease I25.10 PAF (paroxysmal atrial fibrillation) I48.0 Bilateral carotid artery stenosis I65.23 Hospital discharge follow-up Z09 Time Spent (min) 30
== END 2023-10-05 15:02 | disposition home or self-care (01) ==
PROVIDERS: PCP Nurse Practitioner Family; Visit Provider Nurse Practitioner Family
DX: J44.1 Chronic obstructive pulmonary disease with (acute) exacerbation (principal); R79.89 Other specified abnormal findings of blood chemistry; I25.10 Atherosclerotic heart disease of native coronary artery without angina pectoris; I48.0 Paroxysmal atrial fibrillation; I65.23 Occlusion and stenosis of bilateral carotid arteries; Z09 Encounter for follow-up examination after completed treatment for conditions other than malignant neoplasm
CPT/HCPCS: 99214

== ENCOUNTER → 2023-10-05 13:26 | Outpatient (BNVA) | payer OTHER, SELFPAY | PROVIDERS: PCP Nurse Practitioner Family; Visit Provider Nurse Practitioner Family | DX: R79.89 Other specified abnormal findings of blood chemistry (principal); I25.10 Atherosclerotic heart disease of native coronary artery without angina pectoris; I48.0 Paroxysmal atrial fibrillation; I65.23 Occlusion and stenosis of bilateral carotid arteries; J44.9 Chronic obstructive pulmonary disease, unspecified; Z79.01 Long term (current) use of anticoagulants; Z79.899 Other long term (current) drug therapy | CPT/HCPCS: 99212 ==

== ENCOUNTER 2023-10-19 15:11 | Outpatient (AMB) | payer OTHER, SELFPAY ==
[2023-10-19 15:20] VITALS: BP 112/72; PULSE 104; O2SAT 96; BMI 22.6
--- NOTE | 2023-10-19 15:20 | A.OFFVIS_ITS ---
Vital Signs 10/19/23 15:20 Height 5 ft Weight 115 lb 11.883 oz BMI 22.6 BP 112/72 Blood Pressure Location Lt brachial Position Sitting Pulse 104 H Pulse Source Pulse Oximeter Pulse Oximetry (%) 96 Oxygen Delivery Method Room Air Intake Visit Reasons: copd Intake Note: pt is here for follow up and states she is having issues with her spinal implant, her breathing is a little off with coughing, and some short of breath. Credit Administration Officer Required: No Allergies Cephalosporins [CEPHALOSPORINS] Allergy (Unknown, Verified 10/19/23 15:38) UNKNOWN clonidine [CLONIDINE] Allergy (Unknown, Verified 10/19/23 15:38) UNKNOWN gabapentin [GABAPENTIN] Allergy (Unknown, Verified 10/19/23 15:38) UNKNOWN mirtazapine [From REMERON] Allergy (Unknown, Verified 10/19/23 15:38) UNKNOWN naproxen Allergy (Unknown, Verified 10/19/23 15:38) UNKNOWN tramadol Allergy (Unknown, Verified 10/19/23 15:38) UNKNOWN bupropion [From WELLBUTRIN] Adverse Reaction (Unknown, Verified 10/19/23 15:38) Shaky Medication List - Last Reconciled 10/19/23 by Satinder Granados MD albuterol sulfate 90 mcg/actuation 2 puffs PO Q6H PRN 30 days albuterol sulfate 2.5 mg (3 mL) inhalation TID atorvastatin 40 mg PO DAILY cholecalciferol (vitamin D3) 50 mcg PO DAILY clonazepam 0.5 mg PO BID diltiazem HCl ER (Tiadylt ER) 120 mg PO DAILY [Ensure Chocolate ] fluticasone propionate 110 mcg/actuation (Flovent HFA) 1 puff inhalation BID ipratropium-albuterol 0.5 mg-3 mg(2.5 mg base)/3 mL 3 mL inhalation Q4-6H PRN meclizine 25 mg PO DAILY PRN rivaroxaban (Xarelto) 20 mg PO DAILY 90 days trazodone 150 mg PO BEDTIME Do you need a note to return to daycare/school/sports/work: No HPI HPI copd: Details: MARRY IS 78 YEARS OLD VERY PLEASANT FEMALE. SHE IS HERE FOR 6 MONTHS FOLLOW-UP RECENTLY ADMITTED TO THE HOSPITAL FOR A FEW DAYS WITH AN ACUTE EXACERBATION. SHE IS DOING OKAY AND SHE IS HAPPY THAT FOR THE LAST 3 WEEKS SHE HAS NOT SMOKED. SHE USES O2 2 L/MINUTE AT NIGHT FOR NOCTURNAL HYPOXEMIA HAS NOT REQUIRED TO USE OXYGEN DURING THE DAYTIME. SHE WALKS AROUND IN THE HOUSE WITHOUT MUCH SHORTNESS OF BREATH. COUGH ONLY ONCE IN A WHILE. AND SHE USES HER RESCUE INHALER ONLY ONCE IN A WHILE. [facility] Medical History Nocturnal hypoxemia Basal cell carcinoma History of COVID-19 (~06/2021) Personal history of nicotine dependence Osteopenia (~2009) History of non-ST elevation myocardial infarction (NSTEMI) (~04/2016) COPD (chronic obstructive pulmonary disease) Depression with anxiety Brain aneurysm Bilateral carotid artery stenosis PAF (paroxysmal atrial fibrillation) (~04/2016) Atherosclerotic cardiovascular disease Surgical History History of inguinal hernia repair, bilateral (~2018) History of skin surgery History of arthroscopic surgery of shoulder (~2009) History of carpal tunnel release History of bladder surgery History of thumb surgery History of tubal ligation History of total hysterectomy Family History Father No problems noted. Mother No problems noted. Brother Stroke Social History Household Members: None Housing: Other Housing Other:: mobile home Are you a primary cna caregiver to a significant other at home: No Do you presently have visiting nurse or other home services: Yes ([facility] q6 months) Patient Tobacco Use Status: Current someday Tobacco user Tobacco use type: Cigarette Cigarette Packs Per Day: 2 Cigarettes Per Day: 0.5 Years Smoked: 68 e-Cigarette/Vaping Use: Former Use Second Hand Smoke Exposure: Yes Substance Use Type: Marijuana Advance Directives Date on File: 08/03/23 service: No Current occupational status: retired and disabled Cognitive needs: No Hearing needs: No Vision needs: No Review of Systems Const All systems reviewed & are unremarkable except as noted in HPI and below Eyes Reports no additional complaints ENT Reports no additional complaints Card Denies chest pain and Reports irregular heart rhythm (Paroxysmal atrial fib) Resp Reports as per HPI GI Reports no additional complaints Reports no additional complaints Musc Reports back pain (Chronic, due to compression fractures) Skin/Breast Reports dry skin Neuro Reports memory loss (Minimal) Psych Reports anxiety (Controlled) and Reports memory loss (Minimal) Physical Exam Vital Signs: Last Vital Signs Pulse 104 H 10/19/23 15:20 BP 112/72 10/19/23 15:20 Pulse Ox 96 10/19/23 15:20 Oxygen Delivery Method Room Air 10/19/23 15:20 BMI result Body Mass Index 22.6 Const General: comfortable, no acute distress, alert and awake Orientation/consciousness: patient oriented x3 HEENT Head: Yes normal to inspection General nose exam: No nasal polyps present and No nasal discharge present Face and sinus: Yes sinuses nontender Mouth: oropharynx normal Throat: Yes posterior oropharynx normal Eyes General: appearance normal, both eyes and all related structures Neck Neck: Yes normal visual inspection, Yes no lymphadenopathy, Yes trachea midline and Yes no JVD Thyroid: Thyroid normal Chest Chest palpation & inspection: normal inspection of the chest, normal palpation of entire chest wall and no tenderness Resp Other: Percussion note hyper-resonant. Breath sounds are distant with prolonged expiratory phase, No wheezes or rhonchi are heard. Cardio Palpation: normal PMI Rate: regular rate Rhythm: regular rhythm Heart sounds: no gallops and no murmurs GI Palpation (GI): Soft to palpation, nontender, No hepatosplenomegaly present and no masses Auscultation: normal bowel sounds Back/Spine/Pelvis Thoracic/Lumbar Spine: thoracic and lumbar spine normal to inspection and thoraco-lumbar ROM limited Skin General skin exam: no rashes or lesions noted and dry skin Neuro General: patient oriented x3 and no focal motor deficits Cranial nerves: Yes CN's II-XII intact bilaterally Extrem General: Yes normal to inspection, Yes no clubbing, cyanosis or edema and Yes no calf tenderness Psych Appearance: grossly normal and well kempt Speech and movement: Normal speech and movement present Office Procedures Spirometry Testing Spirometry Comments: In office Spirometry testing completed. Results printed to Dr Granados. [id number] Spirometry Results Reviewed Results Reviewed: SPIROMETRY FVC 99%. FEV1. 67% FEV1/FVC 52 FEF 25-75 39%. c/w moderately severe obstructive airway disorder Assessment & Plan Assessment & Plan (1) COPD (chronic obstructive pulmonary disease): Comment: MARRY HAS CUSTODIAL DIAGNOSIS OF CHRONIC OBSTRUCTIVE PULMONARY DISEASE WHICH IS MODERATELY SEVERE. REMAINS STABLE AND CONTROLLED WITH HER CURRENT REGIMEN. Code(s): J44.9 - Chronic obstructive pulmonary disease, unspecified Category: Medical Plan: ADVISED TO CONTINUE FLOVENT HFA-110 2 PUFFS B.I.D. IPRATROPIUM-ALBUTEROL 3 MALE IN NEBULIZER Q 4-6 HOURS P.R.N. ALBUTEROL HFA 2 PUFFS Q 4-6 HOURS P.R.N. WHEN OUTDOORS (2) Personal history of nicotine dependence: Comment: (onset 9yo, x 67yrs, max 1ppd, now <1/2ppd - 50+PYH) Patient is participating in Annual lung screening program. [place] : Talked to her at length about smoking, try to convince her to quit smoking. She is happy that since her admission in the hospital a few weeks ago she has not smoked. She is also happy that she is saving about 40 dollars per month , by not buying cigarettes. Code(s): Z87.891 - Personal history of nicotine dependence Category: Medical Plan: Commended for not smoking, Encouraged to stay off smoking in future. Coding Level of Care Code Est Pt Level 3 (75705) Diagnoses COPD (chronic obstructive pulmonary disease) J44.9 Personal history of nicotine dependence Z87.891 CPT Codes Spirometry - CPT: 89765- Spirometry ([id number])
== END 2023-10-19 16:01 | disposition home or self-care (01) ==
PROVIDERS: PCP Nurse Practitioner Family; Visit Provider Internal Medicine
DX: J44.9 Chronic obstructive pulmonary disease, unspecified (principal); Z87.891 Personal history of nicotine dependence
CPT/HCPCS: 94010; 99213

== ENCOUNTER → 2023-10-19 15:11 | Outpatient (BNVA) | payer OTHER, SELFPAY | PROVIDERS: PCP Nurse Practitioner Family; Visit Provider Internal Medicine | DX: J44.9 Chronic obstructive pulmonary disease, unspecified (principal); Z87.891 Personal history of nicotine dependence | CPT/HCPCS: 94010; 99212 ==

== ENCOUNTER → 2023-10-26 12:32 | Outpatient (REF) | payer OTHER, SELFPAY ==
--- NOTE | ~2023-10-26 | US_ITS ---
EXAMINATION: US EXTRACRANIAL CAROTID DUPLEX, BILATERAL CLINICAL INFORMATION: Occlusion and stenosis of the carotid arteries COMPARISON: None available. TECHNIQUE: Real-time ultrasound and Doppler techniques (integrating B-mode 2-D vascular images, Doppler spectral analysis and color-flow Doppler imaging) were utilized to interrogate the extracranial carotid arteries, the vertebral arteries and proximal subclavian arteries bilaterally. The degree of stenosis is determined by criteria similar to NASCET. FINDINGS: Right Side: 1. There is mild atherosclerotic plaque seen in the bifurcation/proximal ICA region. 2. The common carotid artery PSV proximally is 66 cm/s and distally 60 cm/s. 3. The proximal internal carotid artery velocities are 58 cm/s systolic and 16 cm/s diastolic. 4. The proximal external carotid artery PSV is 95 cm/s. 5. The vertebral artery shows antegrade flow. 6. The subclavian artery waveforms are normal. Left Side: 1. There is mild atherosclerotic plaque seen in the bifurcation/proximal ICA region. 2. The common carotid artery PSV proximally is 76 cm/s and distally 62 cm/s. 3. The proximal internal carotid artery velocities are 68 cm/s systolic and 21 cm/s diastolic. 4. The proximal external carotid artery PSV is 90 cm/s. 5. The vertebral artery shows antegrade flow. 6. The subclavian artery waveforms are normal. US/US carotid duplex BI IMPRESSION: 1. RIGHT: Minimal, non-hemodynamically significant stenosis of the proximal right internal carotid artery corresponding to a 0-49% stenosis by velocity criteria. 2. LEFT: Minimal, non-hemodynamically significant stenosis of the proximal left internal carotid artery corresponding to a 0-49% stenosis by velocity criteria.
--- NOTE | 2023-10-26 12:37 | CA_ITS ---
Transthoracic Echocardiogram Patient (Last, First, Middle): Tova Lopez E Gender: Female Date of : 1945 Age: 78 Procedure Date: 10/26/2023 Procedure Type: Transthoracic Echocardiogram Location: OP Height: 152.4 cm Weight: 52.16 kg BSA: 1.48 m2 Heart Rate: bpm Flow Match Sofa Cutter: KRISTOPHER Referring MD: Crista Burgos SHOVEL LOGGER-Abelino Symptoms: R79.89 - Other specified abnormal findings of blood chemistry Study Quality: Good ECG Rhythm: Sinus Conclusions: - The left ventricular systolic function is normal. The visually estimated ejection fraction is between 60-65%. - No obvious valvular pathology seen on this study. Findings Left Ventricle Normal left ventricular cavity size. There is normal left ventricular wall thickness. The left ventricular systolic function is normal. The visually estimated ejection fraction is between 60-65%. There is no evidence of regional wall motion abnormalities. Diastolic function is normal for age. Right Ventricle Normal right ventricular cavity size and systolic function. Atria Both atria are normal in size. Aortic Valve There is a normal trileaflet aortic valve. There is no aortic valve stenosis. There is no aortic valve regurgitation. Mitral Valve The mitral valve appears normal. There is no mitral valve regurgitation. There is no mitral valve stenosis. Pulmonic Valve The pulmonic valve is likely normal. Tricuspid Valve There is trace tricuspid valve regurgitation. There is no evidence of pulmonary hypertension. Great Vessels The sinuses of valsalva is normal in size. Venous The inferior vena cava is normal in size and collapses greater than 50% with inspiration. Pericardium/Pleural There is no evidence of pericardial effusion. Prior Study Comparison No significant change compared to prior study dated: 04/26/2019. Recommendations, Care & Conclusions No obvious valvular pathology seen on this study. Measurements 2D Linear Measurements IVSd: 0.88 0.6-0.9/0.6-1.0 cm LVIDd: 3.32 3.9-5.3/4.2-5.9 cm LVIDd Index: 2.24 2.4-3.2/2.2-3.1 cm/m2 LVIDs: 2.11 2.0-3.6 cm LVPWd: 0.96 0.7-1.1 cm Ao Root: 2.70 2.1-3.5 cm LA Diam: 2.10 2.7-3.8/3.0-4.0 cm LAIDs Index: 1.42 1.5-2.3 cm/m2 LV Mass: 105.07 67-162/88-224 g LV Mass Index: 71.00 43-95/49-115 g/m2 LVOT Diam: 2.00 3.0+(-)1.3 cm 2D Systolic Function EF 4C: 57.40 >55% EF 2C: 53.10 >55% EF BiP: 55.80 >55% Mitral Valve MV Pk E: 0.65 MV PK A: 1.04 MV Decel Time: 213.00 E/A: 0.60 E'Lateral: 6.20 E'Medial: 5.66 E/E' Med: 11.40 E/E' Lat: 10.40 PHT: 62.00 MVA PHT: 3.55 Decel [place]: 3.04 Aortic Valve AoV Pk Gabriel: 1.05 AoV Mn Gabriel: 0.73 AoV VTI: 0.24 AoV Pk Grad: 4.00 Aov Mn Grad: 3.00 ALICIA Cont.VTI: 2.76 LVOT LVOT Pk Gabriel: 0.82 LVOT Mn Gabriel: 0.53 LVOT VTI: 0.21 LVOT Pk Grad: 3.00 LVOT Mn Grad: 1.00 LVOT Diam: 2.00 LVOT Area: 3.14 Diastolic Function MV Pk E: 0.65 MV Pk A: 1.04 E/A: 0.60 E'Medial: 5.66 E/E' Med: 11.40 E' Laterial: 6.20 E/E' Lat: 10.40 Right Ventricle TAPSE (mm): 18.00 TVS' Gabriel: 8.00 Tricuspid Valve TR Pk Gabriel: 2.08 TR Pk Grad: 17.00 RA Press: 3.00 RVSP: 20.00 Great Vessels Aorta Ao Root-2D: 2.70 2.0-3.7 cm Pulmonary Valve PV Pk Gabriel: 0.82 Peak PV Grad: 3.00 Updated in Other Vendor System with Status of Final Bronson Hardy MD electronically signed on 10/27/2023 9:15:06 AM with status of Final
== END ==
LOC: HO.CARD 12:32
PROVIDERS: PCP Nurse Practitioner Family; Visit Provider Nurse Practitioner Family
DX: I25.10 Atherosclerotic heart disease of native coronary artery without angina pectoris (principal); I65.23 Occlusion and stenosis of bilateral carotid arteries; R79.89 Other specified abnormal findings of blood chemistry
CPT/HCPCS: 93306; 93880

== ENCOUNTER → 2023-10-26 12:37 | Outpatient (BNV) | payer OTHER, SELFPAY | PROVIDERS: PCP Nurse Practitioner Family; Visit Provider Internal Medicine | DX: I36.1 Nonrheumatic tricuspid (valve) insufficiency (principal); R79.89 Other specified abnormal findings of blood chemistry | CPT/HCPCS: 93306 ==

== ENCOUNTER 2023-12-07 14:18 | Outpatient (REF) | payer OTHER, SELFPAY ==
--- NOTE | ~2023-12-07 | XR_ITS ---
EXAMINATION: XR THORACIC SPINE CLINICAL INFORMATION: Mechanical complication of implanted electronic neuro, patient states she has too much jewelry and refused to move. Visualization limited due to overlying jewelry. COMPARISON: Chest radiograph of 08/11/2023, 06/05/2023. CT lung screening August 13, 2021. TECHNIQUE: 4 views of the thoracic spine. FINDINGS: The bones are diffusely demineralized. Mild thoracolumbar scoliosis with multilevel degenerative changes. Extensive atherosclerotic aortic calcifications with focal bulging anteriorly of the distal thoracic aorta as noted on 06/05/2023 exam which could be better evaluated with dedicated views of the chest. Degenerative changes on very limited images of the cervical spine could be evaluated with dedicated cervical spine radiographs. Evaluation substantially limited due to overlying jewelry. Redemonstration of mild compression deformity of T9 thoracic vertebra. Redemonstration of posterior spinal electrodes in mid dorsal spine. XR/XR thoracic spine 3V IMPRESSION: 1. Mild thoracolumbar scoliosis with multilevel degenerative changes. 2. Redemonstration of mild compression deformity of T9 vertebral body, better characterized on CT scan of the chest of August 13, 2021.
== END 2023-12-07 14:19 | disposition home or self-care (01) ==
LOC: HO.XRAY 14:18
PROVIDERS: PCP Nurse Practitioner Family; Visit Provider Anesthesiology
DX: T85.192A Other mechanical complication of implanted electronic neurostimulator of spinal cord electrode (lead), initial encounter (principal); M79.7 Fibromyalgia
CPT/HCPCS: 72072; 99212

== ENCOUNTER 2023-12-07 14:18 | Outpatient (AMB) | payer OTHER, SELFPAY ==
--- NOTE | 2023-12-07 14:53 | A.OFFVIS_ITS ---
Vital Signs 12/07/23 15:24 Height 5 ft Weight 110 lb 8 oz BMI 21.6 BP 102/60 Blood Pressure Location Lt brachial Position Sitting Respiration 14 Pulse 102 H Pulse Source Pulse Oximeter Pulse Oximetry (%) 93 Oxygen Delivery Method Room Air Intake Visit Reasons: discuss Nevro SCS removal Intake Note: Patient comes in to discuss Nevro SCS removal. Reports pain 12/15. Allergies Cephalosporins [CEPHALOSPORINS] Allergy (Unknown, Verified 12/07/23 15:26) UNKNOWN clonidine [CLONIDINE] Allergy (Unknown, Verified 12/07/23 15:26) UNKNOWN gabapentin [GABAPENTIN] Allergy (Unknown, Verified 12/07/23 15:26) UNKNOWN mirtazapine [From REMERON] Allergy (Unknown, Verified 12/07/23 15:26) UNKNOWN naproxen Allergy (Unknown, Verified 12/07/23 15:) UNKNOWN tramadol Allergy (Unknown, Verified 12/07/23 15:26) UNKNOWN bupropion [From WELLBUTRIN] Adverse Reaction (Unknown, Verified 12/07/23 15:26) Xochitl DESOUZA Comments Details: Tova is back in my office after more than 1 year of absence. She received Nevro spinal cord stimulator for the treatment of lower back pain mostly axial in nature. Today she came in my office and reported that spinal cord stimulator is not helping her back. She states that she spoke with Nevro SCS representatives and tried to adjust the stimulation however it was not successful. I decided to send her for the x-ray of the thoracic spine to verify appropriate position of the epidural leads. Epidural leads are positioned appropriately with the tip of the 1st lead closely attached to bottom of T7 vertebra and the 2nd lead positioned in the projection of the top of T9 vertebra. Both leads on the lateral view positioned in the posterior epidural space. Therefore failure of spinal cord stimulator can not be explained by mouth position. She requests me to remove spinal cord stimulator. I can not do this procedure on her insistence. However 1st I would like to hear from the Nevro SCS wire rope sales representative on whether this case could be salvageable by changing stimulation. She reported now the pain radiating into bilateral lower extremities. Possibility exists to turn the device on low frequency stimulation to to help lower extremity pain. [facility] Medical History Nocturnal hypoxemia Basal cell carcinoma History of COVID-19 (~06/2021) Personal history of nicotine dependence Osteopenia (~2009) History of non-ST elevation myocardial infarction (NSTEMI) (~04/2016) COPD (chronic obstructive pulmonary disease) Depression with anxiety Brain aneurysm Bilateral carotid artery stenosis PAF (paroxysmal atrial fibrillation) (~04/2016) Atherosclerotic cardiovascular disease Surgical History History of inguinal hernia repair, bilateral (~2018) History of skin surgery History of arthroscopic surgery of shoulder (~2009) History of carpal tunnel release History of bladder surgery History of thumb surgery History of tubal ligation History of total hysterectomy Family History Father No problems noted. Mother No problems noted. Brother Stroke Social History Household Members: None Housing: Other Housing Other:: mobile home Are you a primary lawn care technician to a significant other at home: No Do you presently have visiting nurse or other home services: Yes ([facility] q6 months) Patient Tobacco Use Status: Current someday Tobacco user Tobacco use type: Cigarette Cigarette Packs Per Day: 2 Cigarettes Per Day: 0.5 Years Smoked: 68 e-Cigarette/Vaping Use: Former Use Second Hand Smoke Exposure: Yes Substance Use Type: Marijuana Advance Directives Date on File: 08/03/23 service: No Current occupational status: retired and disabled Cognitive needs: No Hearing needs: No Vision needs: No Review of Systems Const All systems reviewed & are unremarkable except as noted in HPI and below Physical Exam Vital Signs: Last Vital Signs Pulse 102 H 12/07/23 15:24 Resp 14 12/07/23 15:24 BP 102/60 12/07/23 15:24 Pulse Ox 93 12/07/23 15:24 Oxygen Delivery Method Room Air 12/07/23 15:24 BMI result Body Mass Index 21.6 Const General: cooperative and healthy appearing Nutritional Appearance: well nourished Limitations: no limitations Resp Effort & Inspection: normal respiratory effort, able to speak in complete sentences, normal respiratory pattern, no audible wheezes, no cough and respirat ory effort not decreased Cardio Jugular venous distension: no JVD GI Inspection: Yes normal to inspection Palpation (GI): Soft to palpation General: Yes no CVA tenderness Back/Spine/Pelvis Other: Patient is able to walk on heels and tip toes with cane and mild difficulty. Back extension and forward flexion easily reproduces patient's severe lower back pain. Demonstrates 4/5 strength of quadriceps bilaterally as well as flexion/dorsiflexion of bilateral feet against resistance. Significant TTP in projection of the bilateral SIJ. Jose Miguel test and Stinchfield test resulted in significant pain in the projection SIJ bilaterally. Unable to perform further testing due to exacerbation in pain. Bilateral groin pain with hip internal and external rotations. Back: no CVA tenderness Skin General skin exam: no rashes or lesions noted and dry skin Extrem General: Yes full ROM, Yes capillary refill normal, Yes no clubbing, cyanosis or edema and Yes no calf tenderness Psych Appearance: grossly normal Mental Status: mental status grossly normal Speech and movement: Clear speech present Affect: normal affect Attitude: cooperative Thought process: Normal thought process present Thought content: Normal thought content present, suicidality, no hallucinations and No Depressive thoughts present Insight: Good insight present (Psych) Judgement: Good judgement present (Psych) Assessment & Plan Assessment & Plan (1) Spinal cord stimulator dysfunction: Code(s): T85.192A - Other mechanical complication of implanted electronic neurostimulator of spinal cord electrode (lead), initial encounter Category: Medical (2) Fibromyalgia: Code(s): M79.7 - Fibromyalgia Category: Medical (3) Lumbar radiculopathy: Code(s): M54.16 - Radiculopathy, lumbar region Category: Medical (4) Lumbar degenerative disc disease: Code(s): M51.36 - Other intervertebral disc degeneration, lumbar region Category: Medical (5) Chronic back pain: Code(s): M54.9 - Dorsalgia, unspecified; G89.29 - Other chronic pain Category: Medical (6) Chronic pain syndrome: Code(s): G89.4 - Chronic pain syndrome Category: Medical (7) History of vertebral compression fracture: Code(s): Z87.81 - Personal history of (healed) traumatic fracture Category: Medical (8) Arthritis of left hip: Code(s): M16.12 - Unilateral primary osteoarthritis, left hip Category: Medical Plan Right L5-S1 interlaminar PADMINI 11/19/21 w resulted in pain aggravation. Patient has combination of axial lumbar and thoracic back pain and radiation of the pain into right lower extremity. She has significant osteoporosis. She is also on Xarelto which her administrative coordinator allows her to stop provided that she understands that it will slightly increase the risk of stroke for her. trial of SCS Nevro results: 80% pain relief on her lower back pain with radiation into the right lower extremity however the pain in the axial sacral and coccygeal spine remains untouched by the stimulation. Also reports no pain improvement on the left hip pain with radiation into the left groin. She was not been decisive whether or not she wants the permanent implant of Nevro SCS. Eventually she thought that the partial cover of pain is better than none and decided to go for the SCS Nevro implant Now she reports that her pain is not covered at all. I will discuss it with SCS Nevro wire rope sales representative. If she insists on removal of the device I will schedule her for removal. Orders: Orders XR thoracic spine 3V 12/07/23 T85.192A - Other mechanical complication of implanted electronic neurostimulator of spinal cord electrode (lead), initial encounter Coding Level of Care Code Est Pt Level 3 (67587) Diagnoses Spinal cord stimulator dysfunction T85.192A Fibromyalgia M79.7 Lumbar radiculopathy M54.16 Lumbar degenerative disc disease M51.36 Chronic back pain M54.9; G89.29 Chronic pain syndrome G89.4 History of vertebral compression fracture Z87.81 Arthritis of left hip M16.12
[2023-12-07 15:24] VITALS: BP 102/60; PULSE 102; RESP 14; O2SAT 93; BMI 21.6
== END 2023-12-07 15:08 | disposition home or self-care (01) ==
PROVIDERS: PCP Nurse Practitioner Family; Visit Provider Anesthesiology
DX: T85.192A Other mechanical complication of implanted electronic neurostimulator of spinal cord electrode (lead), initial encounter (principal); M79.7 Fibromyalgia; M54.16 Radiculopathy, lumbar region; M51.36 Other intervertebral disc degeneration, lumbar region; M54.9 Dorsalgia, unspecified; G89.29 Other chronic pain; G89.4 Chronic pain syndrome; Z87.81 Personal history of (healed) traumatic fracture; M16.12 Unilateral primary osteoarthritis, left hip
CPT/HCPCS: 99213

== ENCOUNTER 2023-12-14 10:27 | Outpatient (AMB) | payer OTHER, SELFPAY ==
[2023-12-14 10:36] VITALS: BP 106/74; PULSE 90; TEMP 36.6; O2SAT 97; BMI 21.4
--- NOTE | 2023-12-14 10:36 | MHC.OFFWIV ---
Intake Vital Signs 12/14/23 10:36 Height 5 ft Weight 109 lb 8 oz BMI 21.4 BP 106/74 Blood Pressure Location Rt brachial Position Sitting Pulse 90 Pulse Source Pulse Oximeter Temp 97.8 F Temp Source Oral Pulse Oximetry (%) 97 Intake Visit Reasons: EP lower back rt leg pain Intake Note: pt is here for lower back right leg pain Patient Tobacco Use Status: Current someday Tobacco user Allergies Cephalosporins [CEPHALOSPORINS] Allergy (Unknown, Verified 12/14/23 10:36) UNKNOWN clonidine [CLONIDINE] Allergy (Unknown, Verified 12/14/23 10:36) UNKNOWN gabapentin [GABAPENTIN] Allergy (Unknown, Verified 12/14/23 10:36) UNKNOWN mirtazapine [From REMERON] Allergy (Unknown, Verified 12/14/23 10:36) UNKNOWN naproxen Allergy (Unknown, Verified 12/14/23 10:36) UNKNOWN tramadol Allergy (Unknown, Verified 12/14/23 10:36) UNKNOWN bupropion [From WELLBUTRIN] Adverse Reaction (Unknown, Verified 12/14/23 10:36) [place] Do you need a note to return to daycare/school/sports/work: No HPI HPI Comments History of Present Illness Details Patient is a 78-year-old female complaining of worsening chronic back pain. She states she had a spinal stimulator implanted about a year ago and she noticed a few months ago it stopped working as well. She states she did have a fall over the winter onto her right hip, she slipped in the snow. She states she got an x-ray of her low back on December 06 but she does not have the reading yet, and she is wondering if something happened with a spinal stimulator. She states she is using it as directed for up to 4 hours and does not get any relief from it. She states [facility] came to her house on Thursday and yesterday and gave her a Toradol injection which seemed to help. However she states she has reduced eating and drinking because she is in so much pain. She states she can only walk hunched over. She states she goes to pain management, Dr. Underwood is the doctor who implanted the stimulator and they have called their office but have not been able to get an appointment for follow-up. She did state she was trouble shooting with the company who implanted the stimulator but when they called this morning, she was still sleeping and she has not called them back. [facility] Medical History Nocturnal hypoxemia Basal cell carcinoma History of COVID-19 (~06/2021) Personal history of nicotine dependence Osteopenia (~2009) History of non-ST elevation myocardial infarction (NSTEMI) (~04/2016) COPD (chronic obstructive pulmonary disease) Depression with anxiety Brain aneurysm Bilateral carotid artery stenosis PAF (paroxysmal atrial fibrillation) (~04/2016) Atherosclerotic cardiovascular disease Surgical History History of inguinal hernia repair, bilateral (~2018) History of skin surgery History of arthroscopic surgery of shoulder (~2009) History of carpal tunnel release History of bladder surgery History of thumb surgery History of tubal ligation History of total hysterectomy Family History Father No problems noted. Mother No problems noted. Brother Stroke Social History Household Members: None Housing: Other Housing Other:: mobile home Are you a primary transitional care liaison to a significant other at home: No Do you presently have visiting nurse or other home services: Yes ([facility] q6 months) Patient Tobacco Use Status: Current someday Tobacco user Tobacco use type: Cigarette Cigarette Packs Per Day: 2 Cigarettes Per Day: 0.5 Years Smoked: 68 e-Cigarette/Vaping Use: Former Use Second Hand Smoke Exposure: Yes Substance Use Type: Marijuana Advance Directives Date on File: 08/03/23 service: No Current occupational status: retired and disabled Cognitive needs: No Hearing needs: No Vision needs: No Physical Exam Vital Signs: Last Vital Signs Temp 97.8 F 12/14/23 10:36 Pulse 90 12/14/23 10:36 BP 106/74 12/14/23 10:36 Pulse Ox 97 12/14/23 10:36 BMI result Body Mass Index 21.4 Const General: cooperative and well developed Orientation/consciousness: patient oriented x3 Limitations: wheelchair HEENT Head: Yes normal to inspection Eyes General: appearance normal, both eyes and all related structures Neck Neck: Yes normal visual inspection and Yes full ROM Resp Effort & Inspection: normal respiratory effort and able to speak in complete sentences Back/Spine/Pelvis Thoracic/Lumbar Spine: pain with thoraco-lumbar ROM, thoraco-lumbar ROM limited, No thoracic spinal tenderness and No lumbar spinal tenderness Skin General skin exam: no rashes or lesions noted Neuro General: patient oriented x3 Extrem General: Yes normal to inspection Assessment & Plan Assessment & Plan (1) Back pain: Code(s): M54.9 - Dorsalgia, unspecified Qualifiers: Back pain location: low back pain Chronicity: chronic Back pain laterality: bilateral Sciatica presence: without sciatica Qualified Code(s): M54.50 - Low back pain, unspecified; G89.29 - Other chronic pain Plan: Patient states she was getting Toradol from visiting nurse but she is on Xarelto so she should not be taking Toradol. She said it did give her a little bit of relief, in that light, I will prescribe a burst of prednisone hoping the anti-inflammatory effect we will help her with her back pain. Also recommended Voltaren gel and lidocaine patches. Also recommended that she follow up with the company who controls her spinal stimulator to see if they can change the settings. Apparently they did leave her a message at 07:00. And I highly recommended she follow up with pain management to continue the conversation about her spinal stimulator. Also recommended trying to increase her p.o. intake, using ensure shakes and electrolyte drinks. Explained to patient the risks and benefits of prednisone, noted that it could help stimulate her appetite a little bit as well. Plan see above Medications: New prednisone 40 mg (2 x 20 mg) PO DAILY 10 tabs 0RF Coding Level of Care Code Est Pt Level 4 (58685) Diagnoses Chronic bilateral low back pain without sciatica M54.50; G89.29 Back pain location: low back pain Chronicity: chronic Back pain laterality: bilateral Sciatica presence: without sciatica
== END 2023-12-14 11:57 | disposition home or self-care (01) ==
PROVIDERS: PCP Nurse Practitioner Family; Visit Provider Physician Assistant
DX: M54.50 Low back pain, unspecified (principal); G89.29 Other chronic pain
CPT/HCPCS: 99214

== ENCOUNTER 2023-12-17 14:58 | Outpatient (AMB) | payer OTHER, SELFPAY ==
--- NOTE | 2023-12-17 15:00 | A.OFFVIS_ITS ---
Vital Signs 12/17/23 15:12 Height 5 ft Weight 109 lb BMI 21.3 BP 123/57 L Blood Pressure Location Lt brachial Position Sitting Respiration 14 Pulse 75 Pulse Source Pulse Oximeter Pulse Oximetry (%) 95 Oxygen Delivery Method Room Air Intake Visit Reasons: discuss xray results Intake Note: Patient comes in to discuss xrays results. Reports pain 03/17. Allergies Cephalosporins [CEPHALOSPORINS] Allergy (Unknown, Verified 12/17/23 15:12) UNKNOWN clonidine [CLONIDINE] Allergy (Unknown, Verified 12/17/23 15:12) UNKNOWN gabapentin [GABAPENTIN] Allergy (Unknown, Verified 12/17/23 15:12) UNKNOWN mirtazapine [From REMERON] Allergy (Unknown, Verified 12/17/23 15:12) UNKNOWN naproxen Allergy (Unknown, Verified 12/17/23 15:12) UNKNOWN tramadol Allergy (Unknown, Verified 12/17/23 15:12) UNKNOWN bupropion [From WELLBUTRIN] Adverse Reaction (Unknown, Verified 12/17/23 15:12) Xochitl DESOUZA Comments Details: Tova is back in my office after more than 1 year of absence. She received Nevro spinal cord stimulator for the treatment of lower back pain mostly axial in nature. Today she came in my office and reported that spinal cord stimulator is not helping her back pain. She also reported severe discomfort with charging the battery. She also reported that she can not tolerate that battery because it is very painful for her. She also reported pain in the projection of the implantation of the anchor of the epidural stimulating leads. She reports that this area is very painful. She was sent for x-ray of the thoracic spine. The spinal cord positioned appropriately. I suggested that she contact Nevro direct marketing representative and try low frequency paresthesia stimulation to help her pain. Unfortunately patient does not want to try anything. She wants spinal cord stimulator to be removed. She lost a lot of weight and the device is now very shallow under her skin. She reports that she would rather have her regular pain then to have pain from spinal cord stimulator anchor and spinal cord stimulator battery. We decided that I will schedule her for removal of the device as soon as possible. [facility] Medical History Nocturnal hypoxemia Basal cell carcinoma History of COVID-19 (~06/2021) Personal history of nicotine dependence Osteopenia (~2009) History of non-ST elevation myocardial infarction (NSTEMI) (~04/2016) COPD (chronic obstructive pulmonary disease) Depression with anxiety Brain aneurysm Bilateral carotid artery stenosis PAF (paroxysmal atrial fibrillation) (~04/2016) Atherosclerotic cardiovascular disease Surgical History History of inguinal hernia repair, bilateral (~2018) History of skin surgery History of arthroscopic surgery of shoulder (~2009) History of carpal tunnel release History of bladder surgery History of thumb surgery History of tubal ligation History of total hysterectomy Family History Father No problems noted. Mother No problems noted. Brother Stroke Social History Household Members: None Housing: Other Housing Other:: mobile home Are you a primary healthcare specialist to a significant other at home: No Do you presently have visiting nurse or other home services: Yes ([facility] q6 months) Patient Tobacco Use Status: Current someday Tobacco user Tobacco use type: Cigarette Cigarette Packs Per Day: 2 Cigarettes Per Day: 0.5 Years Smoked: 68 e-Cigarette/Vaping Use: Former Use Second Hand Smoke Exposure: Yes Substance Use Type: Marijuana Advance Directives Date on File: 08/03/23 service: No Current occupational status: retired and disabled Cognitive needs: No Hearing needs: No Vision needs: No Review of Systems Const All systems reviewed & are unremarkable except as noted in HPI and below Physical Exam Vital Signs: Last Vital Signs Pulse 75 12/17/23 15:12 Resp 14 12/17/23 15:12 BP 123/57 L 12/17/23 15:12 Pulse Ox 95 12/17/23 15:12 Oxygen Delivery Method Room Air 12/17/23 15:12 BMI result Body Mass Index 21.3 Const General: cooperative and healthy appearing Nutritional Appearance: well nourished Limitations: no limitations Resp Effort & Inspection: normal respiratory effort, able to speak in complete sentences, normal respiratory pattern, no audible wheezes, no cough and respiratory effort not decreased Cardio Jugular venous distension: no JVD GI Inspection: Yes normal to inspection Palpation (GI): Soft to palpation General: Yes no CVA tenderness Back/Spine/Pelvis Other: Patient is able to walk on heels and tip toes with cane and mild difficulty. Back extension and forward flexion easily reproduces patient's severe lower back pain. Demonstrates 4/5 strength of quadriceps bilaterally as well as flexion/dorsiflexion of bilateral feet against resistance. Significant TTP in projection of the bilateral SIJ. Jose Miguel test and Stinchfield test resulted in significant pain in the projection SIJ bilaterally. Unable to perform further testing due to exacerbation in pain. Bilateral groin pain with hip internal and external rotations. Back: no CVA tenderness Skin General skin exam: no rashes or lesions noted and dry skin Extrem General: Yes full ROM, Yes capillary refill normal, Yes no clubbing, cyanosis or edema and Yes no calf tenderness Psych Appearance: grossly normal Mental Status: mental status grossly normal Speech and movement: Clear speech present Affect: normal affect Attitude: cooperative Thought process: Normal thought process present Thought content: Normal thought content present, suicidality, no hallucinations and No Depressive thoughts present Insight: Good insight present (Psych) Judgement: Good judgement present (Psych) Assessment & Plan Assessment & Plan (1) Spinal cord stimulator dysfunction: Code(s): T85.192A - Other mechanical complication of implanted electronic neurostimulator of spinal cord electrode (lead), initial encounter Category: Medical (2) Fibromyalgia: Code(s): M79.7 - Fibromyalgia Category: Medical (3) Lumbar radiculopathy: Code(s): M54.16 - Radiculopathy, lumbar region Category: Medical (4) Lumbar degenerative disc disease: Code(s): M51.36 - Other intervertebral disc degeneration, lumbar region Category: Medical (5) Chronic back pain: Code(s): M54.9 - Dorsalgia, unspecified; G89.29 - Other chronic pain Category: Medical (6) Chronic pain syndrome: Code(s): G89.4 - Chronic pain syndrome Category: Medical (7) History of vertebral compression fracture: Code(s): Z87.81 - Personal history of (healed) traumatic fracture Category: Medical (8) Arthritis of left hip: Code(s): M16.12 - Unilateral primary osteoarthritis, left hip Category: Medical Plan Right L5-S1 interlaminar PADMINI 11/19/21 w resulted in pain aggravation. Patient has combination of axial lumbar and thoracic back pain and radiation of the pain into right lower extremity. She has significant osteoporosis. She is also on Xarelto which her chainman allows her to stop provided that she understands that it will slightly increase the risk of stroke for her. trial of SCS Nevro results: 80% pain relief on her lower back pain with radiation into the right lower extremity however the pain in the axial sacral and coccygeal spine remains untouched by the stimulation. Also reports no pain improvement on the left hip pain with radiation into the left groin. She was not been decisive whether or not she wants the permanent implant of Nevro SCS. Eventually she thought that the partial cover of pain is better than none and decided to go for the SCS Nevro implant Now she reports that her pain is not covered at all. I suggested low frequency stimulation but patient decided to insist on removal of the device. I will schedule her for the procedure as soon as possible. Patient Instructions: I here by testify that I spent 30 minutes in conversation with this patient as well as planning her care and organizing this note. Coding Level of Care Code Est Pt Level 4 (17800) Diagnoses Spinal cord stimulator dysfunction T85.192A Fibromyalgia M79.7 Lumbar radiculopathy M54.16 Lumbar degenerative disc disease M51.36 Chronic back pain M54.9; G89.29 Chronic pain syndrome G89.4 History of vertebral compression fracture Z87.81 Arthritis of left hip M16.12
[2023-12-17 15:12] VITALS: BP 123/57; PULSE 75; RESP 14; O2SAT 95; BMI 21.3
== END 2023-12-17 15:39 | disposition home or self-care (01) ==
PROVIDERS: PCP Nurse Practitioner Family; Visit Provider Anesthesiology
DX: T85.192A Other mechanical complication of implanted electronic neurostimulator of spinal cord electrode (lead), initial encounter (principal); M79.7 Fibromyalgia; M54.16 Radiculopathy, lumbar region; M51.36 Other intervertebral disc degeneration, lumbar region; M54.9 Dorsalgia, unspecified; G89.29 Other chronic pain; G89.4 Chronic pain syndrome; Z87.81 Personal history of (healed) traumatic fracture; M16.12 Unilateral primary osteoarthritis, left hip
CPT/HCPCS: 99214

== ENCOUNTER → 2023-12-17 14:58 | Outpatient (BNVA) | payer OTHER, SELFPAY | PROVIDERS: PCP Nurse Practitioner Family; Visit Provider Anesthesiology | DX: T85.192A Other mechanical complication of implanted electronic neurostimulator of spinal cord electrode (lead), initial encounter (principal); M79.7 Fibromyalgia; M54.16 Radiculopathy, lumbar region; M51.36 Other intervertebral disc degeneration, lumbar region; M54.9 Dorsalgia, unspecified; M16.12 Unilateral primary osteoarthritis, left hip; G89.4 Chronic pain syndrome; Z87.81 Personal history of (healed) traumatic fracture | CPT/HCPCS: 99212 ==

== ENCOUNTER 2023-12-22 10:31 | Outpatient (AMB) | payer OTHER, SELFPAY ==
--- NOTE | 2023-12-22 11:00 | AM.OFFWIN_ITS ---
Intake Vital Signs 12/22/23 11:02 Height 5 ft BP 110/60 Blood Pressure Location Rt brachial Position Sitting Pulse 118 H Pulse Source Pulse Oximeter Temp 97.8 F Temp Source Oral Pulse Oximetry (%) 98 Oxygen Delivery Method Room Air Intake Visit Reasons: EP rt side body pain Patient Tobacco Use Status: Current someday Tobacco user Allergies Cephalosporins [CEPHALOSPORINS] Allergy (Unknown, Verified 12/22/23 11:00) UNKNOWN clonidine [CLONIDINE] Allergy (Unknown, Verified 12/22/23 11:00) UNKNOWN gabapentin [GABAPENTIN] Allergy (Unknown, Verified 12/22/23 11:00) UNKNOWN mirtazapine [From REMERON] Allergy (Unknown, Verified 12/22/23 11:00) UNKNOWN naproxen Allergy (Unknown, Verified 12/22/23 11:00) UNKNOWN tramadol Allergy (Unknown, Verified 12/22/23 11:00) UNKNOWN bupropion [From WELLBUTRIN] Adverse Reaction (Unknown, Verified 12/22/23 11:00) Shaky Do you need a note to return to daycare/school/sports/work: No HPI HPI Comments History of Present Illness Details This is a 78-year-old female with a past medical history of lumbar radiculopathy presenting for evaluation of right-sided low back pain that radiates into her right leg. Patient states that this is a chronic problem and she has a neurostimulator which she states is not working for her pain. Patient states that she is scheduled to have her neurostimulator removed and states that there are no providers currently managing her pain. Patient denies any numbness, tingling or loss of sensation in her right lower extremity. Patient is able to ambulate at home with a cane. Patient states she has only been taking Tylenol without relief of her discomfort. Of note, upon intake the patient was noted to be tachycardic however her heart rate at this time is 88 bpm. [facility] Medical History Nocturnal hypoxemia Basal cell carcinoma History of COVID-19 (~06/2021) Personal history of nicotine dependence Osteopenia (~2009) History of non-ST elevation myocardial infarction (NSTEMI) (~04/2016) COPD (chronic obstructive pulmonary disease) Depression with anxiety Brain aneurysm Bilateral carotid artery stenosis PAF (paroxysmal atrial fibrillation) (~04/2016) Atherosclerotic cardiovascular disease Surgical History History of inguinal hernia repair, bilateral (~2018) History of skin surgery History of arthroscopic surgery of shoulder (~2009) History of carpal tunnel release History of bladder surgery History of thumb surgery History of tubal ligation History of total hysterectomy Family History Father No problems noted. Mother No problems noted. Brother Stroke Social History Household Members: None Housing: Other Housing Other:: mobile home Are you a primary veterinarian laboratory animal care to a significant other at home: No Do you presently have visiting nurse or other home services: Yes ([facility] q6 months) Patient Tobacco Use Status: Current someday Tobacco user Tobacco use type: Cigarette Cigarette Packs Per Day: 2 Cigarettes Per Day: 0.5 Years Smoked: 68 e-Cigarette/Vaping Use: Former Use Second Hand Smoke Exposure: Yes Substance Use Type: Marijuana Advance Directives Date on File: 08/03/23 service: No Current occupational status: retired and disabled Cognitive needs: No Hearing needs: No Vision needs: No Review of Systems Const All systems reviewed & are unremarkable except as noted in HPI and below Denies frequent falls and Denies weakness ENT Denies neck pain Card Denies chest pain Musc Reports back pain, Denies neck pain, Denies numbness and Reports radiating pain into limb (RLE) Skin/Breast Reports system reviewed and no additional complaints, except as documented Neuro Reports no additional complaints, Denies frequent falls, Denies numbness and Denies weakness Psych Reports no additional complaints Physical Exam Vital Signs: Last Vital Signs Temp 97.8 F 12/22/23 11:02 Pulse 118 H 12/22/23 11:02 BP 110/60 12/22/23 11:02 Pulse Ox 98 12/22/23 11:02 Oxygen Delivery Method Room Air 12/22/23 11:02 Pulse is rechecked -- 88bpm Const General: cooperative, no acute distress and well developed Nutritional Appearance: average body habitus Orientation/consciousness: patient oriented x3 Limitations: ambulation with cane Cardio Rate: regular rate (88 bpm) Rhythm: regular rhythm General: Yes no CVA tenderness Back/Spine/Pelvis Back: no CVA tenderness Thoracic/Lumbar Spine: No pain with thoraco-lumbar ROM, paraspinal muscle tenderness on the right greater than left, No thoraco-lumbar spasm, No thoracic spinal tenderness, No lumbar spinal tenderness and No straight leg raise positive Pelvis: sciatic notch tenderness bilateral (right >> left) Sacroiliac joints: on the right tender to palpation Skin General skin exam: no rashes or lesions noted Neuro General: patient oriented x3 Extrem Right lower extremity: normal to inspection (no pain with passive ROM right hip, right knee); no edema Psych Appearance: grossly normal Mental Status: mental status grossly normal Insight: Good insight present (Psych) Judgement: Good judgement present (Psych) Assessment & Plan Assessment & Plan (1) Right-sided low back pain with sciatica: Comment: Patient is currently anticoagulated on Xarelto. Patient will be instructed to continue taking Tylenol and will be prescribed Robaxin. Patient is encouraged to follow up with her primary care provider for ongoing management of her chronic pain. Code(s): M54.41 - Lumbago with sciatica, right side Qualifiers: Chronicity: acute Sciatica laterality: sciatica of right side Qualified Code(s): M54.41 - Lumbago with sciatica, right side Plan: Tylenol q6 to 8 hours as needed and Robaxin q.i.d.. Follow up with PCP on regarding plan for ongoing pain management. Medications: New methocarbamol 750 mg PO QID 20 tabs 0RF Coding Level of Care Code Est Pt Level 3 (22847) Diagnoses Acute right-sided low back pain with right-sided sciatica M54.41 Chronicity: acute Sciatica laterality: sciatica of right side Time Spent (min) 25
[2023-12-22 11:02] VITALS: BP 110/60; PULSE 118; TEMP 36.6; O2SAT 98
== END 2023-12-22 11:58 | disposition home or self-care (01) ==
PROVIDERS: PCP Nurse Practitioner Family; Visit Provider Physician Assistant
DX: M54.41 Lumbago with sciatica, right side (principal)
CPT/HCPCS: 99213

== ENCOUNTER 2023-12-25 11:03 | Outpatient (AMB) | payer OTHER, SELFPAY ==
--- NOTE | 2023-12-25 11:06 | A.OFFVIS_ITS ---
Vital Signs 12/25/23 11:11 Height 5 ft Weight 110 lb BMI 21.5 BP 109/59 L Blood Pressure Location Lt brachial Position Sitting Pulse 95 Pulse Source Pulse Oximeter Pulse Oximetry (%) 96 Oxygen Delivery Method Room Air Intake Visit Reasons: Pain control Intake Note: Pain today 03/17 Billboard Installer Required: No Accompanied by: Self / Same As Patient Allergies Cephalosporins [CEPHALOSPORINS] Allergy (Unknown, Verified 12/25/23 11:12) UNKNOWN clonidine [CLONIDINE] Allergy (Unknown, Verified 12/25/23 11:12) UNKNOWN gabapentin [GABAPENTIN] Allergy (Unknown, Verified 12/25/23 11:12) UNKNOWN mirtazapine [From REMERON] Allergy (Unknown, Verified 12/25/23 11:12) UNKNOWN naproxen Allergy (Unknown, Verified 12/25/23 11:12) UNKNOWN tramadol Allergy (Unknown, Verified 12/25/23 11:12) UNKNOWN bupropion [From WELLBUTRIN] Adverse Reaction (Unknown, Verified 12/25/23 11:12) Xochitl DESOUZA Comments Details: Tova is back in my office with request to start her on opioids to treat her pain. She is very dissatisfied with Nevro spinal cord stimulator. Originally she did not receive very profound results on the trial. However she decided that partial pain relief is better than no pain relief. We went for implantation of the SCS Nevro. However the patient does not report now pain relief from Nevro SCS. Reports only pain aggravation. She reports that there is painful sensation in the projection of the Nevro SCS battery spreading to her flank. She is scheduled for removal of the device on 01/08/2024. She is asking me to prescribe her some medications to alleviate her pain. She was diagnose in the past with neuropathic pain. She tried gabapentin which is giving her side effects. I offered her to start her on Lyrica minimal dose today. I will send prescription to her. I gave her informed consent, opioid information page and opioid agreement pages. She will decide whether she wants to be on chronic opioid therapy. Briefly risks of chronic opioid therapy were discussed. She is 79 years old in few days and cognitive decline on chronic opioid therapy is quite possible. I explained the patient other potential risks of chronic opioid therapy briefly. Also patient is on benzodiazepines prescribed to her by the psychologist. I told the patient that she with her comorbidities will not be on any opioids if she continues benzodiazepines. I recommended the patient to schedule an appointment with her psychologist and try to change her benzodiazepines for some other medications which are less implicated for interactions with opioids. After surgery I will prescribe her short course opioid therapy and I will give her Narcan. She received Nevro spinal cord stimulator for the treatment of lower back pain mostly axial in nature. Today she came in my office and reported that spinal cord stimulator is not helping her back pain. She also reported severe discomfort with charging the battery. She also reported that she can not tolerate that battery because it is very painful for her. She also reported pain in the projection of the implantation of the anchor of the epidural stimulating leads. She reports that this area is very painful. She was sent for x-ray of the thoracic spine. The spinal cord positioned appropriately. I suggested that she contact [facility] community engagement representative and try low frequency paresthesia stimulation to help her pain. Unfortunately patient does not want to try anything. She wants spinal cord stimulator to be removed. She lost a lot of weight and the device is now very shallow under her skin. She reports that she would rather have her regular pain then to have pain from spinal cord stimulator anchor and spinal cord stimulator battery. We decided that I will schedule her for removal of the device as soon as possible. COUNTS INCLUDE 234 BEDS AT THE [facility] Medical History Nocturnal hypoxemia Basal cell carcinoma History of COVID-19 (~06/2021) Personal history of nicotine dependence Osteopenia (~2009) History of non-ST elevation myocardial infarction (NSTEMI) (~04/2016) COPD (chronic obstructive pulmonary disease) Depression with anxiety Brain aneurysm Bilateral carotid artery stenosis PAF (paroxysmal atrial fibrillation) (~04/2016) Atherosclerotic cardiovascular disease Surgical History History of inguinal hernia repair, bilateral (~2018) History of skin surgery History of arthroscopic surgery of shoulder (~2009) History of carpal tunnel release History of bladder surgery History of thumb surgery History of tubal ligation History of total hysterectomy Family History Father No problems noted. Mother No problems noted. Brother Stroke Social History Household Members: None Housing: Other Housing Other:: mobile home Are you a primary laboratory animal care veterinarian to a significant other at home: No Do you presently have visiting nurse or other [facility] services: [facility] Patient Tobacco Use Status: Current someday Tobacco user Tobacco use type: Cigarette Cigarette Packs Per Day: 2 Cigarettes Per Day: 0.5 Years Smoked: 68 e-Cigarette/Vaping Use: Former Use Second Hand Smoke Exposure: Yes Substance Use Type: Marijuana Advance Directives Date on File: 08/03/23 service: No Current occupational status: retired and disabled Cognitive needs: No Hearing needs: No Vision needs: No Review of Systems Const All systems reviewed & are unremarkable except as noted in HPI and below Physical Exam Vital Signs: Last Vital Signs Pulse 95 12/25/23 11:11 BP 109/59 L 12/25/23 11:11 Pulse Ox 96 12/25/23 11:11 Oxygen Delivery Method Room Air 12/25/23 11:11 BMI result Body Mass Index 21.5 Const General: cooperative and healthy appearing Nutritional Appearance: well nourished Limitations: no limitations Resp Effort & Inspection: normal respiratory effort, able to speak in complete sentences, normal respiratory pattern, no audible wheezes, no cough and respiratory effort not decreased Cardio Jugular venous distension: no JVD GI Inspection: Yes normal to inspection Palpation (GI): Soft to palpation General: Yes no CVA tenderness Back/Spine/Pelvis Other: Patient is able to walk on heels and tip toes with cane and mild difficulty. Back extension and forward flexion easily reproduces patient's severe lower back pain. Demonstrates 4/5 strength of quadriceps bilaterally as well as flexion/dorsiflexion of bilateral feet against resistance. Significant TTP in projection of the bilateral SIJ. Jose Miguel test and Stinchfield test resulted in significant pain in the projection SIJ bilaterally. Unable to perform further testing due to exacerbation in pain. Bilateral groin pain with hip internal and external rotations. Back: no CVA tenderness Skin General skin exam: no rashes or lesions noted and dry skin Extrem General: Yes full ROM, Yes capillary refill normal, Yes no clubbing, cyanosis or edema and Yes no calf tenderness Psych Appearance: grossly normal Mental Status: mental status grossly normal Speech and movement: Clear speech present Affect: normal affect Attitude: cooperative Thought process: Normal thought process present Thought content: Normal thought content present, suicidality, no hallucinations and No Depressive thoughts present Insight: Good insight present (Psych) Judgement: Good judgement present (Psych) Assessment & Plan Assessment & Plan (1) Spinal cord stimulator dysfunction: Code(s): T85.192A - Other mechanical complication of implanted electronic neurostimulator of spinal cord electrode (lead), initial encounter Category: Medical (2) Fibromyalgia: Code(s): M79.7 - Fibromyalgia Category: Medical (3) Lumbar radiculopathy: Code(s): M54.16 - Radiculopathy, lumbar region Category: Medical (4) Lumbar degenerative disc disease: Code(s): M51.36 - Other intervertebral disc degeneration, lumbar region Category: Medical (5) Chronic back pain: Code(s): M54.9 - Dorsalgia, unspecified; G89.29 - Other chronic pain Category: Medical (6) Chronic pain syndrome: Code(s): G89.4 - Chronic pain syndrome Category: Medical (7) History of vertebral compression fracture: Code(s): Z87.81 - Personal history of (healed) traumatic fracture Category: Medical (8) Arthritis of left hip: Code(s): M16.12 - Unilateral primary osteoarthritis, left hip Category: Medical Plan Right L5-S1 interlaminar PADMINI 11/19/21 w resulted in pain aggravation. Patient has combination of axial lumbar and thoracic back pain and radiation of the pain into right lower extremity. She has significant osteoporosis. She is also on Xarelto which her call or contact centre team leader allows her to stop provided that she understands that it will slightly increase the risk of stroke for her. trial of SCS Nevro results: 80% pain relief on her lower back pain with radiation into the right lower extremity however the pain in the axial sacral and coccygeal spine remains untouched by the stimulation. Also reports no pain improvement on the left hip pain with radiation into the left groin. She was not been decisive whether or not she wants the permanent implant of Nevro SCS. Eventually she thought that the partial cover of pain is better than none and decided to go for the SCS Nevro implant Now she reports that her pain is not covered at all. She reports severe pain in the projection of the battery. She insists on removal of spinal cord stimulator. She wants to be on chronic opioid therapy. There are so many obstacles for her to be on chronic opioid therapy. She is elderly, she has comorbidities, she is on benzodiazepines. The benzodiazepines are prescribed by psychologist. She received today a package for chronic opioid therapy. If she decides to go for chronic opioid therapy with all the lifestyle implications from chronic opioid therapy she needs to work with her psychologist to stop her benzodiazepines, I can not imagine I will prescribe her chronic opioids with comorbidities she has and receiving benzodiazepines from elsewhere. She also reports that she consumes cannabis, that is another respiratory depressant. I explained to her that if she wants to continue and consider chronic opioid therapy I need to make sure that she purchase her cannabis at the reputable state approve dispensary and not on the street. She is scheduled for SCS removal on 01/08/2024 with diagnosis of dysfunction of the spinal cord stimulator She is also will be prescribed smallest dose of Lyrica, she is very uncomfortable she reports shock-like nerve pains. She can not take NSAIDs because she is on blood thinners. She tried muscle relaxants they were not effective. She tried gabapentin and she was allergic to gabapentin. Medications: New pregabalin (Lyrica) 25 mg PO BID 60 caps 0RF 30 days Patient Instructions: I here by testify that I spent 35 minutes in conversation with this patient as well as planning her care and organizing this note. Coding Level of Care Code Est Pt Level 4 (54387) Diagnoses Spinal cord stimulator dysfunction T85.192A Fibromyalgia M79.7 Lumbar radiculopathy M54.16 Lumbar degenerative disc disease M51.36 Chronic back pain M54.9; G89.29 Chronic pain syndrome G89.4 History of vertebral compression fracture Z87.81 Arthritis of left hip M16.12
[2023-12-25 11:11] VITALS: BP 109/59; PULSE 95; O2SAT 96; BMI 21.5
== END 2023-12-25 11:38 | disposition home or self-care (01) ==
PROVIDERS: PCP Nurse Practitioner Family; Visit Provider Anesthesiology
DX: T85.192A Other mechanical complication of implanted electronic neurostimulator of spinal cord electrode (lead), initial encounter (principal); M79.7 Fibromyalgia; M54.16 Radiculopathy, lumbar region; M51.36 Other intervertebral disc degeneration, lumbar region; M54.9 Dorsalgia, unspecified; G89.29 Other chronic pain; G89.4 Chronic pain syndrome; Z87.81 Personal history of (healed) traumatic fracture; M16.12 Unilateral primary osteoarthritis, left hip
CPT/HCPCS: 99214

== ENCOUNTER → 2023-12-25 11:03 | Outpatient (BNVA) | payer OTHER, SELFPAY | PROVIDERS: PCP Nurse Practitioner Family; Visit Provider Anesthesiology | DX: M79.7 Fibromyalgia (principal); M54.16 Radiculopathy, lumbar region; M51.36 Other intervertebral disc degeneration, lumbar region; G89.4 Chronic pain syndrome; M16.12 Unilateral primary osteoarthritis, left hip; T85.192A Other mechanical complication of implanted electronic neurostimulator of spinal cord electrode (lead), initial encounter; X58.XXXA Exposure to other specified factors, initial encounter; Y93.9 Activity, unspecified; Y92.9 Unspecified place or not applicable; Y99.9 Unspecified external cause status; Z87.81 Personal history of (healed) traumatic fracture | CPT/HCPCS: 99212 ==

== ENCOUNTER 2024-01-08 05:50 | Day surgery (SDC) | payer OTHER, SELFPAY ==
--- NOTE | 2024-01-06 14:45 | P.CONAN_ITS ---
Documented by User: Shahida Hightower NP 01/06/24 15:09 HPI - Anesthesia Eval Consult details Narrative: 78yo F for Removal of Spinal Cord Stimulator C admit 08/2023 with influenza/sepsis, copd exacerbation/acute bronchitis Seen by pulmo and cardiology post-op, improved since discharge Xarelto for afib O2 QHS Per cardiology workload, Crista Burgos NP: She has a known history of nonobstructive coronary artery disease and paroxysmal atrial fibrillation. Last EKG showed sinus rhythm. Recent echo shows normal EF. Nuclear stress test done last fall was normal. She can proceed with her procedure with a intermediate cardiac risk. Anticoagulation can be held as requested. While off anticoagulation she carries an increased risk of stroke. I called and spoke with her and she states understanding. She says she has held it before without any issues. PMFSH Active Problems Active Problems: All Active Problems Right-sided low back pain with sciatica (Acute) Back pain (Acute) Spinal cord stimulator dysfunction (Acute) Hospital discharge follow-up (Acute) Elevated troponin (Acute) Influenza (Acute) Preop cardiovascular exam (Acute) Eye drainage (Acute) Redness of eye, left (Acute) Memory loss (Acute) Conjunctivitis, acute, bilateral (Acute) Arthritis of left hip (Acute) Precordial chest pain (Acute) Arm numbness (Acute) Lipid disorder (Acute) Environmental allergies (Acute) Hypertension, essential (Acute) Bronchitis (Acute) Compression fracture of lumbar spine, non-traumatic (Acute) Weight loss (Acute) Lack of appetite (Acute) Recurrent closed fracture of lumbar vertebra (Acute) Chronic back pain (Acute) Abdominal discomfort (Acute) Lumbar radiculitis (Acute) Recurrent fracture of lumbar vertebra (Acute) Neuropathy (Acute) Acute bronchitis (Acute) Pain management (Acute) Coronary artery disease (Acute) Right knee pain (Acute) Bilateral hip pain (Acute) Fibromyalgia (Acute) Lumbar spondylolysis (Acute) Lumbar degenerative disc disease (Acute) Lumbar radiculopathy (Acute) Major depression, recurrent (Acute) Anxiety, generalized (Acute) Physical exam (Acute) Urinary frequency (Acute) Leukocytosis (Acute) History of vertebral compression fracture (Acute) Chronic pain syndrome (Acute) Brain aneurysm (Acute) Atherosclerotic cardiovascular disease (Acute) Bilateral carotid artery stenosis (Acute) PAF (paroxysmal atrial fibrillation) (Acute ~04/2016) COPD (chronic obstructive pulmonary disease) (Acute) Personal history of nicotine dependence (Acute) Depression with anxiety (Acute) Past Medical History Medical History Nocturnal hypoxemia Basal cell carcinoma History of COVID-19 (~06/2021) Personal history of nicotine dependence Osteopenia (~2009) History of non-ST elevation myocardial infarction (NSTEMI) (~04/2016) COPD (chronic obstructive pulmonary disease) Depression with anxiety Brain aneurysm Bilateral carotid artery stenosis PAF (paroxysmal atrial fibrillation) (~04/2016) Atherosclerotic cardiovascular disease Family History Family History Father No problems noted. Mother No problems noted. Brother Stroke Family history of problems with anesthesia: No Surgical History Surgical History History of inguinal hernia repair, bilateral (~2018) History of skin surgery History of arthroscopic surgery of shoulder (~2009) History of carpal tunnel release History of bladder surgery History of thumb surgery History of tubal ligation History of total hysterectomy History of Problems with Anesthesia: No Social History Social History Household Members: None Housing: Other Housing Other:: mobile home Are you a primary health care administrator to a significant other at home: No Do you presently have visiting nurse or other home services: [facility] Patient Tobacco Use Status: Current everyday Tobacco user Tobacco use type: Cigarette Cigarette Packs Per Day: 0.5 Cigarettes Per Day: 10.0 Years Smoked: 68 e-Cigarette/Vaping Use: Former Use Date Education Initiated: 01/08/24 Use of substances other than those prescribed or required for medical reasons: No Substance Use Type: Marijuana Are you DNR?: No Advance Directives: No Advance Directives Information Provided: Yes Advance Directives Date on File: 08/03/23 service: No Current occupational status: retired and disabled Cognitive needs: No Hearing needs: No Vision needs: No Meds Allergies Allergy/AdvReac Type Severity Reaction Status Date / Time Cephalosporins Allergy Unknown UNKNOWN Verified 01/08/24 06:21 [CEPHALOSPORINS] gabapentin [GABAPENTIN] Allergy Unknown UNKNOWN Verified 01/08/24 06:21 mirtazapine [From REMERON] Allergy Unknown UNKNOWN Verified 01/08/24 06:21 naproxen Allergy Unknown UNKNOWN Verified 01/08/24 06:21 tramadol Allergy Unknown UNKNOWN Verified 01/08/24 06:21 bupropion [From WELLBUTRIN] AdvReac Unknown Shaky Verified 01/08/24 06:21 Home Medications ?Medication ?Instructions ?Recorded ?Confirmed ?Last Taken ?Type clonazepam 0.5 mg tablet 0.5 mg PO BID Anxiety 03/08/20 01/08/24 08/10/23 History meclizine 25 mg tablet 25 mg PO DAILY PRN Vertigo 08/04/23 01/08/24 08/10/23 History trazodone 150 mg tablet 150 mg PO BEDTIME insomnia 08/04/23 01/08/24 08/10/23 History Exam Pertinent Lab Results Pertinent Lab Results: Laboratory Tests 08/12/23 05:50 WBC 8.5 Hgb 12.6 Hct 37.5 Plt Count 231 Sodium 136 Potassium 3.7 Chloride 108 Carbon Dioxide 23 BUN 16 Creatinine 0.72 Narrative Narrative: SPIROMETRY 10/2023 FVC 99%. FEV1. 67% FEV1/FVC 52 FEF 25-75 39%. c/w moderately severe obstructive airway disorder EKG 08/2023 Vent. Rate : 126 BPM Atrial Rate : 126 BPM P-R Int : 132 ms QRS Dur : 080 ms QT Int : 308 ms P-R-T Axes : 081 064 079 degrees QTc Int : 446 ms Sinus tachycardia Otherwise normal ECG When compared with ECG of 03-AUG-2023 11:19, T wave amplitude has increased in Inferior leads Nonspecific T wave abnormality no longer evident in Anterior leads ECHO 10/2023 Conclusions: - The left ventricular systolic function is normal. The visually estimated ejection fraction is between 60-65%. - No obvious valvular pathology seen on this study. US carotid duplex BI 10/2023 IMPRESSION: 1. RIGHT: Minimal, non-hemodynamically significant stenosis of the proximal right internal carotid artery corresponding to a 0-49% stenosis by velocity criteria. 2. LEFT: Minimal, non-hemodynamically significant stenosis of the proximal left internal carotid artery corresponding to a 0-49% stenosis by velocity criteria. Assessment and Plan Assessment Anesthesia Assessment: Chart Reviewed Final Anesthetic Review Family History of Problems with Anesthesia: No History of Problems with Anesthesia: No Documented by User: Jenna Saleh MD 01/08/24 07:49 PMFSH Past Medical History Medical History Nocturnal hypoxemia Basal cell carcinoma History of COVID-19 (~06/2021) Personal history of nicotine dependence Osteopenia (~2009) History of non-ST elevation myocardial infarction (NSTEMI) (~04/2016) COPD (chronic obstructive pulmonary disease) Depression with anxiety Brain aneurysm Bilateral carotid artery stenosis PAF (paroxysmal atrial fibrillation) (~04/2016) Atherosclerotic cardiovascular disease Family History Family History Father No problems noted. Mother No problems noted. Brother Stroke Surgical History Surgical History History of inguinal hernia repair, bilateral (~2018) History of skin surgery History of arthroscopic surgery of shoulder (~2009) History of carpal tunnel release History of bladder surgery History of thumb surgery History of tubal ligation History of total hysterectomy Social History Social History Household Members: None Housing: Other Housing Other:: mobile home Are you a primary health care administrator to a significant other at home: No Do you presently have visiting nurse or other home services: Yes ([facility]6 months) Patient Tobacco Use Status: Current everyday Tobacco user Tobacco use type: Cigarette Cigarette Packs Per Day: 0.5 Cigarettes Per Day: 10.0 Years Smoked: 68 e-Cigarette/Vaping Use: Former Use Date Education Initiated: 01/08/24 Use of substances other than those prescribed or required for medical reasons: No Substance Use Type: Marijuana Are you DNR?: No Advance Directives: No Advance Directives Information Provided: Yes Advance Directives Date on File: 08/03/23 service: No Current occupational status: retired and disabled Cognitive needs: No Hearing needs: No Vision needs: No Meds Allergies Allergy/AdvReac Type Severity Reaction Status Date / Time Cephalosporins Allergy Unknown UNKNOWN Verified 01/08/24 06:21 [CEPHALOSPORINS] gabapentin [GABAPENTIN] Allergy Unknown UNKNOWN Verified 01/08/24 06:21 mirtazapine [From REMERON] Allergy Unknown UNKNOWN Verified 01/08/24 06:21 naproxen Allergy Unknown UNKNOWN Verified 01/08/24 06:21 tramadol Allergy Unknown UNKNOWN Verified 01/08/24 06:21 bupropion [From WELLBUTRIN] AdvReac Unknown Shaky Verified 01/08/24 06:21 Home Medications ?Medication ?Instructions ?Recorded ?Confirmed ?Last Taken ?Type clonazepam 0.5 mg tablet 0.5 mg PO BID Anxiety 03/08/20 01/08/24 08/10/23 History meclizine 25 mg tablet 25 mg PO DAILY PRN Vertigo 08/04/23 01/08/24 08/10/23 History trazodone 150 mg tablet 150 mg PO BEDTIME insomnia 08/04/23 01/08/24 08/10/23 History Exam Airway Mallampati Class: II TM Dist: >3cm Neck ROM: Full Denture: Upper and Lower Heart: rrr Lungs: cta Assessment and Plan Assessment Anesthesia Assessment: Anesthesia Plan Discussed Final Anesthetic Review NPO: Yes ASA Class: III Final Preanesthetic Review: No Changes in Pt Med Stat, Meds/Allgs Chart Reviewed, Consent Obtained/Reviewed and Anes Risks/Benef Reviewed Patient Risk: Intermediate Procedure Risk: Intermediate Anesthetic Plan Anesthetic Plan: MAC: Disposition: Standard PACU
--- NOTE | ~2024-01-08 | FL_ITS ---
EXAMINATION: XR FLUOROSCOPY WITH IMAGES CLINICAL INFORMATION: Spinal cord stimulator removal. COMPARISON: 02/27/2023. TECHNIQUE: Fluoroscopy provided to: Dr. Mena Fluoroscopy time: 0.1 minutes DAP: 0.324 Gycm2 Images: 3 FINDINGS: Reason coned-down images lumbar spine showed dorsal epidural contrast in place and contrast extending into L5 and S1 nerve root sheaths, with removal of a spinal stimulator which is no longer seen. FL/FL guidance in OR IMPRESSION: Fluoroscopic guidance. Please refer to the full operative report for details. Electronically signed by: Frank Johnson MD 03/03/2024 03:47 PM EDT Workstation: [id number]
[2024-01-08 06:36] VITALS: BP 110/52; PULSE 88; RESP 18; TEMP 36.1; O2SAT 95; BMI 21.1
--- NOTE | 2024-01-08 06:47 | P.HPSUR_ITS ---
Pre-Procedural Eval Section A - 24 Hr Update-Section A only Date of Service: 01/08/24 The patient is an INPATIENT: No Changes since office visit: Yes Patient answered all questions The patient has been examined within 24 hours of the surgical procedure. The History & Physical has been completed within 30 days and I have reviewed it.: No Section B - Complete if H&P > 30 days Chief Complaint: Other mechanical complication of implanted electro Details of Present Illness: as above Relevant Family History (Specify if Yes): No Relevant Social History: Tobacco Use Present Medications: see Short Stay [facility] assessment Medical History: No relevant PMH History of Previous Operations: Relevant previous surgery/procedure and date(s) Allergies: Allergies Allergy/AdvReac Type Severity Reaction Status Date / Time Cephalosporins Allergy Unknown UNKNOWN Verified 01/08/24 06:21 [CEPHALOSPORINS] clonidine [CLONIDINE] Allergy Unknown UNKNOWN Verified 01/08/24 06:21 gabapentin [GABAPENTIN] Allergy Unknown UNKNOWN Verified 01/08/24 06:21 mirtazapine [From REMERON] Allergy Unknown UNKNOWN Verified 01/08/24 06:21 naproxen Allergy Unknown UNKNOWN Verified 01/08/24 06:21 tramadol Allergy Unknown UNKNOWN Verified 01/08/24 06:21 bupropion [From WELLBUTRIN] AdvReac Unknown Shaky Verified 01/08/24 06:21 Review of Systems Sugical H&P ROS: Negative: Constitution, Cardiovascular, Respiratory, Neurological, Psychiatric, Hem-Onc, Allergic/Immunologic, Gastrointestinal, Genitourinary, Musculoskeletal, Integumentary, Endocrine and Eyes/Ears/Nose/Throat Exam Surgical H&P Exam: Normal: HEENT, Normal: Heart, Normal: Lungs, Normal: Extremities, Normal: Abdomen, Normal: Skin and Normal: Neurological Plan Diagnosis/Plan: Unchanged I have reviewed the history and physical and performed a pertinent physical examination on my patient. No changes have occurred unless specified. Time Spent With Patient Time: Total time managing care of this patient today __5 __ minutes.
[2024-01-08 06:57] LABS: INTERNATIONAL NORM RATIO 1.1 (0.9-1.1); Prothrombin Time 13.2 SEC (11.1-13.3)
[2024-01-08] MEDS: Lactated Ringers 1,000 ML 100 ML IVCONT (07:12)
[2024-01-08 08:54] VITALS: BP 104/48; PULSE 74; RESP 12; TEMP 36.6; O2SAT 96
[2024-01-08 09:09] VITALS: BP 96/47; PULSE 66; RESP 16; O2SAT 92
--- NOTE | 2024-01-08 09:13 | P.BOP_ITS ---
Brief Operative Note Date of Service: 01/08/24 Pre-op diagnosis: Malfunctioning spinal cord stimulator Post-op diagnosis: same Procedure: Removal of the spinal cord stimulator Implants: None Surgeon: Shmuel Mena MD Was an Finisher Map And Chart used for this Procedure?: No Estimated blood loss (mL): 18 Condition: stable Disposition: PACU
--- NOTE | 2024-01-08 09:14 | W.PM.OPN ---
Operative Note Operative Note Date of Service: 01/08/24 Narrative: Removal of spinal cord stimulator system. After obtaining informed consent and explaining to the patient risks, benefits and alternatives to treat her pain, the patient was brought up to the operating room where she was positioned prone on the operating table [employer] monitors were applied and patient was sedated . All pressure points protected. The patient received antibiotic clindamycin 900 mg intravenously 30 minutes before incision. Time-out was performed delineating correct site and side of the procedure, name and date of of the patient, risk of fire, need for antibiotic prophylaxis risk of DVT and need for DVT prophylaxis. After that the patient entire back was prepped with chloroprep and draped with fool body drape. The location of the implantation of the body of the battery scar in the patient's right upper buttock was infiltrated with lidocaine 2% mixture with bupivacaine 0.5% one-to-one and after that 10 blade scalpel was used to make an incision alongside the previous scar. The wound was widened and deepened until the body of the spinal cord stimulator was detected. No significant bleeding was observed. The anchoring sutures were severed and the body of the spinal cord stimulator battery was delivered to the level of the skin. The epidural leads were severed using heavy suture scissors, the battery was removed from the operating field. After that attention was concentrated on the midline incision scar which also was infiltrated with the same solution of lidocaine and then it was incised using 10 blade scalpel. The length of the incision was 5 cm. Anchors were located under the skin and anchoring sutures were severed using suture scissors. The epidural leads were removed from the epidural space, the tips of the epidural leads were intact. After that the entire epidural leads were removed from the patient's tissue and removed from the operating field. Only after that using electrocautery thorough hemostasis was obtained and wounds were re-irrigated with vancomycin containing irrigation solution. After that 0 Polysorb sutures were used to close both wounds, 2-0 sutures were used to approximate the level of the skin, and after that madonna were applied on both wounds. Bacitracin ointment was applied and dressing was affixed to the patient's skin using Medipore tape. The patient tolerated the procedure well, she was taken outside of the operating room to recovery room where she recovered uneventfully.
[2024-01-08 09:30] VITALS: BP 105/56; PULSE 92; RESP 18; TEMP 36.6; O2SAT 96
[2024-01-08] MEDS: oxyCODONE HCl Immed Release 5 MG TABLET PO (09:51)
== END 2024-01-08 10:21 | disposition home or self-care (01) ==
PROVIDERS: PCP Nurse Practitioner Family; Visit Provider Anesthesiology
PROC: (CPT 63661; principal; 2024-01-08 07:30)
DX: T85.192A Other mechanical complication of implanted electronic neurostimulator of spinal cord electrode (lead), initial encounter (principal); T85.840A Pain due to nervous system prosthetic devices, implants and grafts, initial encounter; G89.28 Other chronic postprocedural pain; Y75.2 Prosthetic and other implants, materials and neurological devices associated with adverse incidents; G89.4 Chronic pain syndrome; M54.16 Radiculopathy, lumbar region; M51.36 Other intervertebral disc degeneration, lumbar region; M79.7 Fibromyalgia; M81.0 Age-related osteoporosis without current pathological fracture; M16.12 Unilateral primary osteoarthritis, left hip; Z87.81 Personal history of (healed) traumatic fracture; Z79.899 Other long term (current) drug therapy; Z88.6 Allergy status to analgesic agent; Z88.8 Allergy status to other drugs, medicaments and biological substances; F17.210 Nicotine dependence, cigarettes, uncomplicated
CPT/HCPCS: 63661; 63688; 36415; 85610; J0736; J2250; J2371; J2704; J2795; J3010; J3370

== ENCOUNTER → 2024-01-08 05:50 | Outpatient (BNV) | payer OTHER, SELFPAY | PROVIDERS: PCP Nurse Practitioner Family; Visit Provider Anesthesiology | DX: T85.192A Other mechanical complication of implanted electronic neurostimulator of spinal cord electrode (lead), initial encounter (principal) | CPT/HCPCS: 63661; 63688 ==

== ENCOUNTER 2024-01-13 09:53 | Outpatient (AMB) | payer OTHER, SELFPAY ==
--- NOTE | 2024-01-13 09:58 | A.OFFVIS_ITS ---
Vital Signs 01/13/24 10:33 Height 5 ft Weight 108 lb 6 oz BMI 21.2 BP 104/58 L Blood Pressure Location Lt brachial Position Sitting Respiration 14 Pulse 60 Pulse Source Pulse Oximeter Pulse Oximetry (%) 100 Oxygen Delivery Method Room Air Intake Visit Reasons: S/p Nevro SCS Explant 01/08/24 Intake Note: Patient comes in for post-op. Reports pain 07/18. Allergies Cephalosporins [CEPHALOSPORINS] Allergy (Unknown, Verified 01/13/24 10:34) UNKNOWN gabapentin [GABAPENTIN] Allergy (Unknown, Verified 01/13/24 10:34) UNKNOWN mirtazapine [From REMERON] Allergy (Unknown, Verified 01/13/24 10:34) UNKNOWN naproxen Allergy (Unknown, Verified 01/13/24 10:34) UNKNOWN tramadol Allergy (Unknown, Verified 01/13/24 10:34) UNKNOWN bupropion [From WELLBUTRIN] Adverse Reaction (Unknown, Verified 01/13/24 10:34) Xochitl DESOUZA Comments Details: Tova is back in my office after the removal of spinal cord stimulator Nevro. She is suffering from axial back pain , she had a history of compression fractures of the vertebra in her spine she has a history of degenerative disc disease and spondylosis of lumbar spine her pain is mostly axial. She was requesting me to insert spinal cord stimulator originally about 1 year ago however later on she stated that spinal cord stimulator does not help her and the battery of the spinal cord stimulator bothers her a lot so she insisted on removal of the spinal cord stimulator. She also was taking into consideration possibility of treatment with us on chronic opioid program. She reported today that she tried oxycodone prescribed to her postoperatively and side effects were unbearable. She was not unable to drink or eat, she reported being drowsy and dizzy and sleepy. This is on minimal doses of oxycodone. Any other opioid medications will do the same for the patient. I do not think she is a good ca ndidate for chronic opioid program. Besides that she is taking chronic benzodiazepines which is high risk for this patient is possibility of respiratory arrest. The removal of the spinal cord stimulator Nevro went uneventfully. I removed the battery and the epidural leads. Today wound was inspected there is no swelling there is no redness no pathological discharge no tenderness on palpation. She reports local tenderness in projection of the midline incision however it looks completely innocent, madonna are competent and wound inches competent. The patient will come here in 1 week and madonna will be removed. Unfortunately with her reports on oxycodone side effects I think she will not be a good candidate for chronic opioid program. All other opioids have the same capability of giving her side effects as above. [facility] Medical History Nocturnal hypoxemia Basal cell carcinoma History of COVID-19 (~06/2021) Personal history of nicotine dependence Osteopenia (~2009) History of non-ST elevation myocardial infarction (NSTEMI) (~04/2016) COPD (chronic obstructive pulmonary disease) Depression with anxiety Brain aneurysm Bilateral carotid artery stenosis PAF (paroxysmal atrial fibrillation) (~04/2016) Atherosclerotic cardiovascular disease Surgical History History of inguinal hernia repair, bilateral (~2018) History of skin surgery History of arthroscopic surgery of shoulder (~2009) History of carpal tunnel release History of bladder surgery History of thumb surgery History of tubal ligation History of total hysterectomy Family History Father No problems noted. Mother No problems noted. Brother Stroke Social History Household Members: None Housing: Other Housing Other:: mobile home Are you a primary healthcare administrative assistant to a significant other at home: No Do you presently have visiting nurse or other home services: [facility] Comment: MEDICATED Patient Tobacco Use Status: Current everyday Tobacco user Tobacco use type: Cigarette Cigarette Packs Per Day: 0.5 Cigarettes Per Day: 10.0 Years Smoked: 68 e-Cigarette/Vaping Use: Former Use Substance Use Type: Marijuana Advance Directives Date on File: 08/03/23 service: No Current occupational status: retired and disabled Cognitive needs: No Hearing needs: No Vision needs: No Review of Systems Const All systems reviewed & are unremarkable except as noted in HPI and below Physical Exam Const General: cooperative and healthy appearing Nutritional Appearance: well nourished Limitations: no limitations Resp Effort & Inspection: normal respiratory effort, able to speak in complete sente nces, normal respiratory pattern, no audible wheezes, no cough and respiratory effort not decreased Cardio Jugular venous distension: no JVD GI Inspection: Yes normal to inspection Palpation (GI): Soft to palpation General: Yes no CVA tenderness Back/Spine/Pelvis Other: Patient is able to walk on heels and tip toes with cane and mild difficulty. Back extension and forward flexion easily reproduces patient's severe lower back pain. Demonstrates 4/5 strength of quadriceps bilaterally as well as flexion/dorsiflexion of bilateral feet against resistance. Significant TTP in projection of the bilateral SIJ. Jose Miguel test and Stinchfield test resulted in significant pain in the projection SIJ bilaterally. Unable to perform further testing due to exacerbation in pain. Bilateral groin pain with hip internal and external rotations. Back: no CVA tenderness Skin General skin exam: no rashes or lesions noted and dry skin Extrem General: Yes full ROM, Yes capillary refill normal, Yes no clubbing, cyanosis or edema and Yes no calf tenderness Psych Appearance: grossly normal Mental Status: mental status grossly normal Speech and movement: Clear speech present Affect: normal affect Attitude: cooperative Thought process: Normal thought process present Thought content: Normal thought content present, suicidality, no hallucinations and No Depressive thoughts present Insight: Good insight present (Psych) Judgement: Good judgement present (Psych) Assessment & Plan Assessment & Plan (1) Spinal cord stimulator dysfunction: Code(s): T85.192A - Other mechanical complication of implanted electronic neurostimulator of spinal cord electrode (lead), initial encounter Category: Medical (2) Fibromyalgia: Code(s): M79.7 - Fibromyalgia Category: Medical (3) Lumbar radiculopathy: Code(s): M54.16 - Radiculopathy, lumbar region Category: Medical (4) Lumbar degenerative disc disease: Code(s): M51.36 - Other intervertebral disc degeneration, lumbar region Category: Medical (5) Chronic back pain: Code(s): M54.9 - Dorsalgia, unspecified; G89.29 - Other chronic pain Category: Medical (6) Chronic pain syndrome: Code(s): G89.4 - Chronic pain syndrome Category: Medical (7) History of vertebral compression fracture: Code(s): Z87.81 - Personal history of (healed) traumatic fracture Category: Medical (8) Arthritis of left hip: Code(s): M16.12 - Unilateral primary osteoarthritis, left hip Category: Medical Plan Right L5-S1 interlaminar PADMINI 11/19/21 w resulted in pain aggravation. Patient has combination of axial lumbar and thoracic back pain and radiation of the pain into right lower extremity. She has significant osteoporosis. 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 trial of SCS Nevro results: 80% pain relief on her lower back pain with radiation into the right lower extremity however the pain in the axial sacral and coccygeal spine remains untouched by the stimulation. Also reports no pain improvement on the left hip pain with radiation into the left groin. She was not been decisive whether or not she wants the permanent implant of Nevro SCS. Eventually she thought that the partial cover of pain is better than none and decided to go for the SCS Nevro implant Later on she reported that her pain is not being helped by spinal cord stimulator, she reported severe pain in the projection of the battery, she insisted to remove spinal cord stimulator. Procedure was performed, the complications not observed. She reports severe pain in the projection of the battery. She insists on r emoval of spinal cord stimulator. She wanted to be on chronic opioid therapy. There are so many obstacles for her to be on chronic opioid therapy. She is elderly, she has comorbidities, she is on benzodiazepines. The benzodiazepines are prescribed by psychologist. Postoperatively she was prescribed oxycodone and she had multiple side effects including anorexia, sleepiness drowsiness. I do not think she is a good candidate for chronic opioid therapy. Patient Instructions: I here by testify that I spent 32 minutes in conversation with this patient as well as planning her care and organizing this note. Coding Level of Care Code Est Pt Level 4 (70133) Diagnoses Spinal cord stimulator dysfunction T85.192A Fibromyalgia M79.7 Lumbar radiculopathy M54.16 Lumbar degenerative disc disease M51.36 Chronic back pain M54.9; G89.29 Chronic pain syndrome G89.4 History of vertebral compression fracture Z87.81 Arthritis of left hip M16.12
[2024-01-13 10:33] VITALS: BP 104/58; PULSE 60; RESP 14; O2SAT 100; BMI 21.2
== END 2024-01-13 10:33 | disposition home or self-care (01) ==
PROVIDERS: PCP Nurse Practitioner Family; Visit Provider Anesthesiology
DX: T85.192A Other mechanical complication of implanted electronic neurostimulator of spinal cord electrode (lead), initial encounter (principal); M79.7 Fibromyalgia; M54.16 Radiculopathy, lumbar region; M51.36 Other intervertebral disc degeneration, lumbar region; M54.9 Dorsalgia, unspecified; G89.29 Other chronic pain; G89.4 Chronic pain syndrome; Z87.81 Personal history of (healed) traumatic fracture; M16.12 Unilateral primary osteoarthritis, left hip
CPT/HCPCS: 99024

== ENCOUNTER → 2024-01-13 09:53 | Outpatient (BNVA) | payer OTHER, SELFPAY | PROVIDERS: PCP Nurse Practitioner Family; Visit Provider Anesthesiology | DX: T85.192D Other mechanical complication of implanted electronic neurostimulator of spinal cord electrode (lead), subsequent encounter (principal); M79.7 Fibromyalgia; M54.16 Radiculopathy, lumbar region; M51.36 Other intervertebral disc degeneration, lumbar region; M54.9 Dorsalgia, unspecified; M16.12 Unilateral primary osteoarthritis, left hip; G89.29 Other chronic pain; Z87.81 Personal history of (healed) traumatic fracture | CPT/HCPCS: 99212 ==

== ENCOUNTER 2024-01-21 09:57 | Outpatient (AMB) | payer OTHER, SELFPAY ==
--- NOTE | 2024-01-21 10:06 | MHC.OFFVIS ---
Vital Signs 01/21/24 10:12 Height 5 ft Weight 107 lb BMI 20.9 BP 130/70 Blood Pressure Location Lt brachial Position Sitting Pulse 100 Pulse Source Pulse Oximeter Pulse Oximetry (%) 96 Oxygen Delivery Method Room Air Intake Visit Reasons: S/p Nevro SCS Explant 01/08/24 (2nd Visit) Intake Note: Pain today 2 Nursing Aide Required: No Accompanied by: Son Allergies Cephalosporins [CEPHALOSPORINS] Allergy (Unknown, Verified 01/13/24 10:34) UNKNOWN gabapentin [GABAPENTIN] Allergy (Unknown, Verified 01/13/24 10:34) UNKNOWN mirtazapine [From REMERON] Allergy (Unknown, Verified 01/13/24 10:34) UNKNOWN naproxen Allergy (Unknown, Verified 01/13/24 10:34) UNKNOWN tramadol Allergy (Unknown, Verified 01/13/24 10:34) UNKNOWN bupropion [From WELLBUTRIN] Adverse Reaction (Unknown, Verified 01/13/24 10:34) Xochitl DESOUZA Comments Details: Patient presents today 2 weeks status post Nevro SCS Explant 01/08/24 for emilee removal. Patient reports axial low back pain has been minimal since SCS removal. Today she rates it at 2/10. The dressings were removed. The two incisional wounds were examined today. They are healing without complications. The wounds were washed with ChloraPrep and emilee were removed today. The wounds are clean, no pathological discharge, no redness, no swelling, no local temperature, no tenderness on palpation. The wounds were washed again with ChloraPrep, Steri-strips and bacitracin ointment with dry sterile dressings were applied. Denies any recent cough, cold, infection, fever, any significant changes in her medical history, medications or recent hospitalizations. PRIOR Dr. Mena 01/13/24: Tova is back in my office after the removal of spinal cord stimulator Nevro. She is suffering from axial back pain , she had a history of compression fractures of the vertebra in her spine she has a history of degenerative disc disease and spondylosis of lumbar spine her pain is mostly axial. She was requesting me to insert spinal cord stimulator originally about 1 year ago however later on she stated that spinal cord stimulator does not help her and the battery of the spinal cord stimulator bothers her a lot so she insisted on removal of the spinal cord stimulator. She also was taking into consideration possibility of treatment with us on chronic opioid program. She reported today that she tried oxycodone prescribed to her postoperatively and side effects were unbearable. She was not unable to drink or eat, she reported being drowsy and dizzy and sleepy. This is on minimal doses of oxycodone. Any other opioid medications will do the same for the patient. I do not think she is a good candidate for chronic opioid program. Besides that she is taking chronic benzodiazepines which is high risk for this patient is possibility of respiratory arrest. The removal of the spinal cord stimulator Maria Luz went uneventfully. I removed the battery and the epidural leads. Today wound was inspected there is no swelling there is no redness no pathological discharge no tenderness on palpation. She reports local tenderness in projection of the midline incision however it looks completely innocent, emilee are competent and wound inches competent. The patient will come here in 1 week and emilee will be removed. Unfortunately with her reports on oxycodone side effects I think she will not be a good candidate for chronic opioid program. All other opioids have the same capability of giving her side effects as above. [facility] Medical History Nocturnal hypoxemia Basal cell carcinoma History of COVID-19 (~06/2021) Personal history of nicotine dependence Osteopenia (~2009) History of non-ST elevation myocardial infarction (NSTEMI) (~04/2016) COPD (chronic obstructive pulmonary disease) Depression with anxiety Brain aneurysm Bilateral carotid artery stenosis PAF (paroxysmal atrial fibrillation) (~04/2016) Atherosclerotic cardiovascular disease Surgical History History of inguinal hernia repair, bilateral (~2018) History of skin surgery History of arthroscopic surgery of shoulder (~2009) History of carpal tunnel release History of bladder surgery History of thumb surgery History of tubal ligation History of total hysterectomy Family History Father No problems noted. Mother No problems noted. Brother Stroke Social History Household Members: None Housing: Other Housing Other:: mobile home Are you a primary hourly caregiver to a significant other at home: No Do you presently have visiting nurse or other home services: Yes ([facility] q6 months) Comment: MEDICATED Patient Tobacco Use Status: Current everyday Tobacco user Tobacco use type: Cigarette Cigarette Packs Per Day: 0.5 Cigarettes Per Day: 10.0 Years Smoked: 68 e-Cigarette/Vaping Use: Former Use Substance Use Type: Marijuana Advance Directives Date on File: 08/03/23 service: No Current occupational status: retired and disabled Cognitive needs: No Hearing needs: No Vision needs: No Review of Systems Const All systems reviewed & are unremarkable except as noted in HPI and below Physical Exam Vital Signs: Last Vital Signs Pulse 100 01/21/24 10:12 BP 130/70 01/21/24 10:12 Pulse Ox 96 01/21/24 10:12 Oxygen Delivery Method Room Air 01/21/24 10:12 BMI result Body Mass Index 20.9 General: Appears afebrile. No acute distress. Alert and oriented. Mood and affect appropriate. Follows and participates in conversation appropriately. Respiratory effort is unlabored. No cough. Able to transition from sit to stand unassisted. Ambulates with mildly antalgic gait with slight limping. Uses cane. Back/Spine/Pelvis Other: Dressing sites are clean, dry, intact. No pathological discharge, no swelling and no erythema. Emilee were removed. Dressings were changed today in the clinic. Cervical Spine: loss of normal cervical lordosis and No Cervical spine tenderness Thoracic/Lumbar Spine: thoracic and lumbar spine normal to inspection, Thoracic/lumbar spine scar(s), pain with thoraco-lumbar ROM, thoraco-lumbar ROM limited, No thoracic spinal tenderness and lumbar spinal tenderness at L4 and at L5 Sacroiliac joints: bilaterally tender to palpation Results Reviewed Results Reviewed: XR THORACIC SPINE 12/07/23 CLINICAL INFORMATION: Mechanical complication of implanted electronic neuro, patient states she has too much jewelry and refused to move. Visualization limited due to overlying jewelry. COMPARISON: Chest radiograph of 08/11/2023, 06/05/2023. CT lung screening August 13, 2021. FINDINGS: The bones are diffusely demineralized. Mild thoracolumbar scoliosis with multilevel degenerative changes. Extensive atherosclerotic aortic calcifications with focal bulging anteriorly of the distal thoracic aorta as noted on 06/05/2023 exam which could be better evaluated with dedicated views of the chest. Degenerative changes on very limited images of the cervical spine could be evaluated with dedicated cervical spine radiographs. Evaluation substantially limited due to overlying jewelry. Redemonstration of mild compression deformity of T9 thoracic vertebra. Redemonstration of posterior spinal electrodes in mid dorsal spine. IMPRESSION: 1. Mild thoracolumbar scoliosis with multilevel degenerative changes. 2. Redemonstration of mild compression deformity of T9 vertebral body, better characterized on CT scan of the chest of August 13, 2021. MR LUMBAR SPINE WITHOUT CONTRAST 08/01/21 CLINICAL INFORMATION: 76-year-old with complaints of low back pain, right hip and leg pain anteriorly in the right leg and foot. Radiculopathy, lumbar region, low back pain. COMPARISON: 12/17/2017 MRI FINDINGS: Coronal Alignment: Slight upper lumbar dextrocurvature and partially visualized thoracic levocurvature similar to previous study. Sagittal Alignment: There is 2 mm of grade 1 degenerative spondylolisthesis at L5-S1 which has developed since previous exam. Otherwise lumbar lordotic curvature is relatively maintained. Lumbosacral Junction: Normal. Vertebral Bodies: Ghal-on-dnevgzlc compression deformity noted along the superior endplate of L5 asymmetric to the left has developed since previous exam with a central predominance. Since the previous study, there has been approximately 40-50% loss of height of the L4 vertebral body, consistent with a compression fracture, which appears incompletely healed. There is a stable mild anterior wedge compression deformity of L2. There is also a stable mild anterior wedge compression deformity of L1. Disc Spaces and Endplates: Multilevel disc desiccation is again noted. Remodeling of the endplates at L4-L5 and L3-L4 have occurred since the previous exam related to the L4 compression fracture. Prominent anterior marginal spondylosis at L4-L5 and L3-L4 has developed, partially related to the anteropulsion of L4 with mild retropulsion of the superior and inferior endplates of L4 as well. Disc space height loss and disc desiccation at L5-S1 is stable. Anterolateral spondylosis at L2-L3 and L1-L2 are similar to previous study. Spinal Canal: No abnormal developmental findings. Bone Marrow: Type I degenerative marrow signal changes are noted along the endplates at L5-S1 which have developed since previous exam. There are type I degenerative marrow signal changes along the inferior endplate of L3 also developed since previous exam. Minimal type I degenerative endplate change along the anterior aspect of the superior endplate of L4. Mild marrow edema noted along the superior endplate of L4 with low T1 signal likely indicates a nonhealed compression fracture. Conus Medullaris: Terminates at L1. Morphology and signal is normal. Intradural Nerve Roots: Within normal limits. L5-S1: Small central extruded disc herniation with slight cephalad migration is noted with mild indentation of the ventral thecal sac superimposed on diffuse disc bulging somewhat progressed from previous study. Moderate bilateral facet arthropathy appears slightly more prominent on current exam. Marked right-sided paravertebral disc osteophyte complex appears slightly more prominent. Moderate to severe right-sided neural foraminal stenosis and moderate left-sided neural foraminal stenosis have progressed from previous study, with right L5 nerve root impingement progressed. No significant canal stenosis. L4-L5: Diffuse disc bulging with a superimposed right subarticular to foraminal disc herniation progressed from previous study, with flattening of the dural sac asymmetric to the right, partly related to a mild degree of retropulsion of the inferior endplate from the L4 compression fracture. There is moderate bilateral facet arthropathy progressed from previous study, now with mild right subarticular recess stenosis without significant central spinal canal stenosis. Severe right-sided neural foraminal stenosis markedly progressed from previous exam. There is also severe left-sided neural foraminal stenosis progressed from previous study with bilateral L4 nerve root impingement, right more than left. L3-L4: Diffuse disc bulging noted asymmetric to the left progressed from previous study, with flattening of the dural sac, bilateral facet arthropathy and ligamentum flavum thickening progressed from previous study. There is a superimposed left paramedian extruded disc herniation with cephalad migration and indentation of the left ventral thecal sac. There is moderate left subarticular recess stenosis which has developed on current study without definite neural impingement. No significant central spinal canal stenosis. There is moderate left-sided neural foraminal stenosis, with asymmetric disc bulging abutting the exiting left L3 nerve root on current exam. L2-L3: Minimal posterolateral foraminal disc protrusions, right more than left, slightly more apparent on the right without neural impingement. Bilateral facet arthropathy similar to previous exam. No significant canal stenosis or neural foraminal compromise. L1-L2: Small bilateral foraminal disc protrusions stable in appearance without neural impingement, with stable ligamentum flavum thickening and facet arthrosis. No canal or neural foraminal stenosis. Paraspinal/Retroperitoneal: The paravertebral soft tissues appear unremarkable. IMPRESSION: 1. Interval moderate compression fracture of the L4 vertebral body which is not yet healed. Interval mild to moderate compression fracture deformity along the superior and plate of L5 asymmetric to the left which appears predominately healed. Stable mild compression fracture deformities of L1 and L2. 2. Multilevel disc bulging and facet arthropathy, some of which is progressed from previous study as described above, with a left paramedian extruded disc herniation with cephalad migration at L3-L4 on current exam. Mild right subarticular recess stenosis at L4-L5 on current study and [id number] left subarticular recess stenosis at L3-L4 also developed since previous exam. No central spinal canal stenosis. 3. Multilevel bilateral neural foraminal stenosis, progressed at multiple levels as detailed above with multilevel bilateral exiting neural impingement as described by level above. XR LUMBOSACRAL SPINE 10/19/20 CLINICAL INFORMATION: Low back pain COMPARISON: Previous x-ray April [address] of the abdomen and pelvis March 2019 FINDINGS: There is curvature of the lumbar spine to the right. Bone alignment is otherwise normal. There are L1, L2 and L4 vertebral body compression fractures. The L4 vertebral body compression fracture appears slightly increased from prior exam April 2018. No new fracture is seen. There is degenerative disc disease and facet arthritis of the lower lumbar spine. There is evidence of atherosclerotic disease. There is soft tissue calcification in the left upper quadrant. This projects anteriorly on the lateral view and may represent something in the stomach. IMPRESSION: L1, L2 and L4 vertebral body compression fractures. The L4 vertebral body compression fracture appears increased from previous exams. Degenerative changes of the lower lumbar spine. Assessment & Plan Assessment & Plan (1) Spinal cord stimulator dysfunction: Code(s): T85.192A - Other mechanical complication of implanted electronic neurostimulator of spinal cord electrode (lead), initial encounter Category: Medical (2) Chronic back pain: Code(s): M54.9 - Dorsalgia, unspecified; G89.29 - Other chronic pain Category: Medical (3) Lumbar radiculitis: Code(s): M54.16 - Radiculopathy, lumbar region Category: Medical (4) Fibromyalgia: Code(s): M79.7 - Fibromyalgia Category: Medical (5) Lumbar spondylolysis: Code(s): M43.06 - Spondylolysis, lumbar region Category: Medical (6) Lumbar degenerative disc disease: Code(s): M51.36 - Other intervertebral disc degeneration, lumbar region Category: Medical Plan The dressings were changed today in the office 2 weeks status post Nevro SCS Explant 01/08/24. The incisions are healing without complications. The wounds were washed with ChloraPrep and emilee were removed today. Patient tolerated staple removal well. The wounds are clean, no pathological discharge, no redness, no swelling, no local temperature, no tenderness on palpation. The wounds were washed again with ChloraPrep, Steri-strips and bacitracin ointment with dry sterile dressings were applied. Patient may remove dressing in 3-4 days and start showering. Activity restrictions and precautions reviewed with patient and family. All questions and concerns have been answered and the patient agreed with the plan. Follow up as needed with Dr. Mena. Coding Level of Care Code Est Pt Level 3 (63623) Diagnoses Spinal cord stimulator dysfunction T85.192A Chronic back pain M54.9; G89.29 Lumbar radiculitis M54.16 Fibromyalgia M79.7 Lumbar spondylolysis M43.06 Lumbar degenerative disc disease M51.36
[2024-01-21 10:12] VITALS: BP 130/70; PULSE 100; O2SAT 96; BMI 20.9
== END 2024-01-21 10:36 | disposition home or self-care (01) ==
PROVIDERS: PCP Nurse Practitioner Family; Visit Provider Nurse Practitioner Family
DX: M54.9 Dorsalgia, unspecified (principal); G89.29 Other chronic pain; M54.16 Radiculopathy, lumbar region; M79.7 Fibromyalgia; M43.06 Spondylolysis, lumbar region; M51.36 Other intervertebral disc degeneration, lumbar region
CPT/HCPCS: 99213

== ENCOUNTER → 2024-01-21 09:57 | Outpatient (BNVA) | payer OTHER, SELFPAY | PROVIDERS: PCP Nurse Practitioner Family; Visit Provider Nurse Practitioner Family | DX: T85.192A Other mechanical complication of implanted electronic neurostimulator of spinal cord electrode (lead), initial encounter (principal); G89.29 Other chronic pain; M54.9 Dorsalgia, unspecified; M54.16 Radiculopathy, lumbar region; M79.7 Fibromyalgia; M43.06 Spondylolysis, lumbar region; M51.36 Other intervertebral disc degeneration, lumbar region; Z98.890 Other specified postprocedural states | CPT/HCPCS: 99212 ==

== ENCOUNTER 2024-03-31 15:28 | Outpatient (AMB) | payer OTHER, SELFPAY ==
[2024-03-31 15:31] VITALS: BP 108/52; PULSE 66; BMI 21.1
--- NOTE | 2024-03-31 15:31 | A.OFFVIS_ITS ---
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 Allergies Cephalosporins [CEPHALOSPORINS] Allergy (Unknown, Verified 03/31/24 15:34) UNKNOWN gabapentin [GABAPENTIN] Allergy (Unknown, Verified 03/31/24 15:34) UNKNOWN mirtazapine [From REMERON] Allergy (Unknown, Verified 03/31/24 15:34) UNKNOWN naproxen Allergy (Unknown, Verified 03/31/24 15:34) UNKNOWN tramadol Allergy (Unknown, Verified 03/31/24 15:34) UNKNOWN bupropion [From WELLBUTRIN] Adverse Reaction (Unknown, Verified 03/31/24 15:34) Shaky Medication List - Last Reconciled 03/31/24 by Crista Burgos [employer]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 albuterol sulfate 2.5 mg (3 mL) inhalation TID albuterol sulfate 90 mcg/actuation 2 puffs PO Q6H PRN 30 days atorvastatin 40 mg PO DAILY cholecalciferol (vitamin D3) 50 mcg PO DAILY clonazepam 0.5 mg PO BID diltiazem HCl ER (Tiadylt ER) 120 mg PO DAILY 90 days [Ensure Chocolate ] fluticasone propionate 110 mcg/actuation 1 puff inhalation BID ipratropium-albuterol 0.5 mg-3 mg(2.5 mg base)/3 mL 3 mL inhalation Q4-6H PRN meclizine 25 mg PO DAILY PRN methocarbamol 750 mg PO QID pregabalin (Lyrica) 25 mg PO BID 30 days rivaroxaban (Xarelto) 20 mg PO DAILY 90 days trazodone 150 mg PO BEDTIME HPI HPI 4 mth f/up: Details: Tova is a 79-year-old female with past medical history of hypertension, hyperl ipidemia, COPD, mild carotid stenosis, nonobstructive CAD, paroxysmal atrial fibrillation, COPD who presents for follow-up. Today she reports she has been doing well since her last visit in September. She denies any chest discomfort at rest or with activity. She does have shortness of breath at times but relates it to her smoking and COPD. She admits to smoking cigarettes and marijuana. No PND, orthopnea or edema. No palpitations, lightheadedness, presyncope, syncope, falls. She will wear oxygen it at night as needed. She is chronic back pain and did have a spinal stimulator in place but has since had it removed. She continues to have chronic back, hip and thigh pain bilateral. She uses a cane for ambulation. She is taking her meds as directed. [facility] Medical History Nocturnal hypoxemia Basal cell carcinoma History of COVID-19 (~06/2021) Personal history of nicotine dependence Osteopenia (~2009) History of non-ST elevation myocardial infarction (NSTEMI) (~04/2016) COPD (chronic obstructive pulmonary disease) Depression with anxiety Brain aneurysm Bilateral carotid artery stenosis PAF (paroxysmal atrial fibrillation) (~04/2016) Atherosclerotic cardiovascular disease Surgical History History of inguinal hernia repair, bilateral (~2018) History of skin surgery History of arthroscopic surgery of shoulder (~2009) History of carpal tunnel release History of bladder surgery History of thumb surgery History of tubal ligation History of total hysterectomy Family History Father No problems noted. Mother No problems noted. Brother Stroke Social History Household Members: None Housing: Other Housing Other:: mobile home Are you a primary youth care professional to a significant other at home: No Do you presently have visiting nurse or other home services: Yes ([facility] q6 months) Comment: MEDICATED Patient Tobacco Use Status: Current everyday Tobacco user Tobacco use type: Cigarette Cigarette Packs Per Day: 0.5 Cigarettes Per Day: 10.0 Years Smoked: 68 e-Cigarette/Vaping Use: Former Use Substance Use Type: Marijuana Advance Directives Date on File: 08/03/23 service: No Current occupational status: retired and disabled Cognitive needs: No Hearing needs: No Vision needs: No Review of Systems Const All systems reviewed & are unremarkable except as noted in HPI and below ENT Denies dizziness Card Denies chest pain, Denies chest pain at rest, Denies chest pain with activity, Denies rapid heart rate, Denies pedal edema, Denies edema, Denies leg edema, Denies lightheadedness, Denies palpitations, Denies dyspnea, Reports dyspnea on exertion and Denies orthopnea Resp Denies cough, Denies dyspnea and Reports dyspnea on exertion GI Denies hematochezia and Denies change in stool character Musc Details: bilateral shoulder pains, leg discomfort, ambulates with cane. Reports abnormal gait, Denies limited range of motion, Denies muscle cramps, Denies muscle weakness, Denies numbness, Denies radiating pain into limb, Denies stiffness and Denies tingling Neuro Reports abnormal gait, Denies dizziness, Denies numbness and Denies tingling Endo Denies palpitations Physical Exam Vital Signs: Last Vital Signs Pulse 66 03/31/24 15:31 BP 108/52 L 03/31/24 15:31 BMI result Body Mass Index 21.1 Const General: cooperative, healthy appearing, comfortable and no acute distress Orientation/consciousness: patient oriented x3 Neck Neck: Yes normal visual inspection and Yes no JVD Resp Effort & Inspection: normal respiratory effort Auscultation: clear to auscultation bilaterally, no crackles, no rales, no rhonchi and no wheezes Cardio Jugular venous distension: no JVD Rate: regular rate Rhythm: regular rhythm Heart sounds: S1 normal heart sound present, S2 normal heart sound present, no murmurs and no rubs Neuro General: patient oriented x3 Extrem General: Yes normal to inspection, No no pedal edema and No calf tenderness Psych Appearance: grossly normal Mental Status: mental status grossly normal Speech and movement: Normal speech and movement present Assessment & Plan Assessment & Plan (1) Atherosclerotic cardiovascular disease: Comment: Coronary CT from 2018-moderate calcific plaque, most evident in the mid LAD where it is nearly circumferential with moderate luminal narrowing in the 50-69% range. Moderate nearly circumferential calcific plaque in the mid RCA with about 50% stenosis. Mild scattered narrowings elsewhere. Code(s): I25.10 - Atherosclerotic heart disease of viejas coronary artery without angina pectoris Category: Medical Plan: History of nonobstructive CAD. Hospital admission for COPD exacerbation/ respiratory failure 08/2023. Troponins elevated at that time and thought to be related to demand ischemia. EKG did not show acute ST and T-wave abnormalities. A nuclear stress test had been done 02/26/2023 which showed normal myocardial perfusion imaging. Echocardiogram was done 10/26/2023 showing EF 60-65%, no regional wall motion abnormalities and no valve abnormalities. On follow-up she reported no anginal sounding symptoms. Today she reports she has been doing generally well. She has chronic shortness of breath with exertion, likely r elated to COPD and ongoing smoking. Will continue med management for stable nonobstructive coronary disease. She has not on aspirin as she is on Xarelto. She is on atorvastatin with ideal LDL goal less than 70. Labs done 01/10/2022 had shown LDL 58. She is due for a repeat and lab orders are in the system. Patient reminded of this. She is on diltiazem for good blood pressure and heart rate control. Blood pressure today 108/52. Beta-babs is avoided as she has COPD. Signs and symptoms of angina reviewed with her. Emergency care if ever needed for symptoms. Cardiology follow-up 6 months, sooner if needed. (2) PAF (paroxysmal atrial fibrillation): Onset Date: ~04/2016 Comment: (onset 04/2016) - follows w/[facility]--last saw 06/2021-states has not been called for follow-up appt Code(s): I48.0 - Paroxysmal atrial fibrillation Category: Medical Plan: History of paroxysmal atrial fibrillation. No recent palpitations to indicate recurrent AF. Clinically in sinus rhythm today. Continue diltiazem for heart rate control. Continue Xarelto for anticoagulation. No bleeding issues reported. (3) Bilateral carotid artery stenosis: Code(s): I65.23 - Occlusion and stenosis of bilateral carotid arteries Category: Medical Plan: History of bilateral carotid stenosis. CTA of the head and neck done 04/18/2020 shows atherosclerotic disease of bilateral ICAs causing less than 50% stenosis. Carotid ultrasound done 10/26/2023 shows right and left ICA each 0-49% stenosis. Continue atorvastatin. Plan Time spent on chart review, documentation, interview and assessment Orders: Orders Comprehensive [facility]. Panel Fast 03/31/24 I25.10 - Atherosclerotic heart disease of viejas coronary artery without angina pectoris Lipid Panel 03/31/24 I25.10 - Atherosclerotic heart disease of viejas coronary artery without angina pectoris Coding Level of Care Code Est Pt Level 4 (22289) Complex EM visit Add On G2211 Diagnoses Atherosclerotic cardiovascular disease I25.10 PAF (paroxysmal atrial fibrillation) I48.0 Bilateral carotid artery stenosis I65.23 Time Spent (min) 28
== END 2024-03-31 16:39 | disposition home or self-care (01) ==
PROVIDERS: PCP Nurse Practitioner Family; Visit Provider Nurse Practitioner Family
DX: I25.10 Atherosclerotic heart disease of native coronary artery without angina pectoris (principal); I48.0 Paroxysmal atrial fibrillation; I65.23 Occlusion and stenosis of bilateral carotid arteries
CPT/HCPCS: 99214; G2211

== ENCOUNTER → 2024-03-31 15:28 | Outpatient (BNVA) | payer OTHER, SELFPAY | PROVIDERS: PCP Nurse Practitioner Family; Visit Provider Nurse Practitioner Family | DX: I25.10 Atherosclerotic heart disease of native coronary artery without angina pectoris (principal); I10 Essential (primary) hypertension; I48.0 Paroxysmal atrial fibrillation; I65.23 Occlusion and stenosis of bilateral carotid arteries | CPT/HCPCS: 99212 ==

== ENCOUNTER 2024-05-18 15:11 | Outpatient (AMB) | payer OTHER, SELFPAY ==
[2024-05-18 15:42] VITALS: BP 106/60; PULSE 97; TEMP 36.7; O2SAT 95; BMI 21.1
--- NOTE | 2024-05-18 15:42 | AM.OFFWIN_ITS ---
Intake Vital Signs 05/18/24 15:42 Height 5 ft Weight 108 lb BMI 21.1 BP 106/60 Blood Pressure Location Lt brachial Position Sitting Pulse 97 Pulse Source Pulse Oximeter Temp 98.0 F Pulse Oximetry (%) 95 Oxygen Delivery Method Room Air Intake Visit Reasons: EP-head concussion Intake Note: pt is here for head concussion Patient Tobacco Use Status: Current everyday Tobacco user Allergies Cephalosporins [CEPHALOSPORINS] Allergy (Unknown, Verified 05/18/24 15:42) UNKNOWN gabapentin [GABAPENTIN] Allergy (Unknown, Verified 05/18/24 15:42) UNKNOWN mirtazapine [From REMERON] Allergy (Unknown, Verified 05/18/24 15:42) UNKNOWN naproxen Allergy (Unknown, Verified 05/18/24 15:42) UNKNOWN tramadol Allergy (Unknown, Verified 05/18/24 15:42) UNKNOWN bupropion [From WELLBUTRIN] Adverse Reaction (Unknown, Verified 05/18/24 15:42) Shaky Do you need a note to return to daycare/school/sports/work: No HPI EP-head concussion HPI Details This note is constructed using voice recognition software. While every effort has been made to ensure accuracy, panel saw operator errors may have been included. The patient is a 79 year old female who presents to the clinic today with concern for concussion. She reports that 3 weeks ago she struck the top of her head on the underside of the table. She is on blood thinners, but did not get evaluated right away. Since that time she has had a headache that has occurred daily. It does go away, but she is using NSAIDs for the pain. She was unaware that she should not be using NSAIDs with the Xarelto. She denies confusion, lightheadedness, dizziness, balance issues, word-finding issues. Symptoms are improving since onset. [facility] Medical History Nocturnal hypoxemia Basal cell carcinoma History of COVID-19 (~06/2021) Personal history of nicotine dependence Osteopenia (~2009) History of non-ST elevation myocardial infarction (NSTEMI) (~04/2016) COPD (chronic obstructive pulmonary disease) Depression with anxiety Brain aneurysm Bilateral carotid artery stenosis PAF (paroxysmal atrial fibrillation) (~04/2016) Atherosclerotic cardiovascular disease Surgical History History of inguinal hernia repair, bilateral (~2018) History of skin surgery History of arthroscopic surgery of shoulder (~2009) History of carpal tunnel release History of bladder surgery History of thumb surgery History of tubal ligation History of total hysterectomy Family History Father No problems noted. Mother No problems noted. Brother Stroke Social History Household Members: None Housing: Other Housing Other:: mobile home Are you a primary rn transitional care to a significant other at home: No Do you presently have visiting nurse or other home services: Yes ([facility] q6 months) Comment: MEDICATED Patient Tobacco Use Status: Current everyday Tobacco user Tobacco use type: Cigarette Cigarette Packs Per Day: 0.5 Cigarettes Per Day: 10.0 Years Smoked: 68 e-Cigarette/Vaping Use: Former Use Substance Use Type: Marijuana Advance Directives Date on File: 08/03/23 service: No Current occupational status: retired and disabled Cognitive needs: No Hearing needs: No Vision needs: No Review of Systems Const All systems reviewed & are unremarkable except as noted in HPI and below Physical Exam Vital Signs: Last Vital Signs Temp 98.0 F 05/18/24 15:42 Pulse 97 05/18/24 15:42 BP 106/60 05/18/24 15:42 Pulse Ox 95 05/18/24 15:42 Oxygen Delivery Method Room Air 05/18/24 15:42 BMI result Body Mass Index 21.1 Const General: cooperative, healthy appearing, comfortable, no acute distress and well developed Orientation/consciousness: patient oriented x3 Limitations: no limitations HEENT Head: Yes normal to inspection Ears: hearing grossly normal bilaterally General nose exam: Normal external nose present Face and sinus: Yes normal facial exam Eyes General: appearance normal, both eyes and all related structures Neck Neck: Yes normal visual inspection and Yes full ROM Resp Effort & Inspection: normal respiratory effort and able to speak in complete sentences Auscultation: clear to auscultation bilaterally Cardio Rate: regular rate Rhythm: regular rhythm Heart sounds: normal S1 and S2 Skin General skin exam: no rashes or lesions noted Neuro General: patient oriented x3 Cranial nerves: Yes CN's II-XII intact bilaterally Extrem General: Yes normal to inspection Assessment & Plan Assessment & Plan (1) Head contusion: Code(s): S00.93XA - Contusion of unspecified part of head, initial encounter Qualifiers: Encounter type: initial encounter Contusion of head detail: scalp Qualified Code(s): S00.03XA - Contusion of scalp, initial encounter Plan: Reviewed with patient the fact that when she is on blood thinners, she should be avoiding any NSAIDs to avoid increasing risk of bleeding. Additionally advised patient that it should she have any additional injuries, she should be evaluated in the emergency room as soon as possible. Given timeline since injury, she no longer is in need of any imaging. I advised her to use acetaminophen for pain, and heat versus ice to the scalp for pain management. We discussed trial of alternate medications should she continue to have pain, however given the risk of side effects, she would like to defer any other medication at this time. Advised patient to follow up with PCP as needed with ongoing or worsening symptoms. Plan See above for full details and plan. Coding Level of Care Code Est Pt Level 3 (12631) Diagnoses Contusion of scalp, initial encounter S00.03XA Encounter type: initial encounter Contusion of head detail: scalp
== END 2024-05-18 16:18 | disposition home or self-care (01) ==
PROVIDERS: PCP Nurse Practitioner Family; Visit Provider Registered Nurse
DX: S00.03XA Contusion of scalp, initial encounter (principal)

== ENCOUNTER → 2024-05-18 15:11 | Outpatient (BNVA) | payer OTHER, SELFPAY | PROVIDERS: PCP Nurse Practitioner Family | DX: S00.03XA Contusion of scalp, initial encounter (principal) | CPT/HCPCS: 99212 ==

== ENCOUNTER 2024-06-16 15:28 | Outpatient (AMB) | payer OTHER, SELFPAY ==
[2024-06-16 15:34] VITALS: BP 98/60; PULSE 114; O2SAT 93; BMI 20.3
--- NOTE | 2024-06-16 15:34 | MHC.OFFVIS ---
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 Allergies Cephalosporins [CEPHALOSPORINS] Allergy (Unknown, Verified 06/16/24 15:57) UNKNOWN gabapentin [GABAPENTIN] Allergy (Unknown, Verified 06/16/24 15:57) UNKNOWN mirtazapine [From REMERON] Allergy (Unknown, Verified 06/16/24 15:57) UNKNOWN naproxen Allergy (Unknown, Verified 06/16/24 15:57) UNKNOWN tramadol Allergy (Unknown, Verified 06/16/24 15:57) UNKNOWN bupropion [From WELLBUTRIN] Adverse Reaction (Unknown, Verified 06/16/24 15:57) Shaky Medication List - Last Reconciled 06/16/24 by Satinder Granados MD albuterol sulfate 90 mcg/actuation 2 puffs PO Q6H PRN albuterol sulfate 2.5 mg (3 mL) inhalation TID atorvastatin 40 mg PO DAILY cholecalciferol (vitamin D3) 50 mcg PO DAILY clonazepam 0.5 mg PO BID diltiazem HCl ER (Tiadylt ER) 120 mg PO DAILY 90 days [Ensure Chocolate ] fluticasone propionate 110 mcg/actuation 1 puff inhalation BID ipratropium-albuterol 0.5 mg-3 mg(2.5 mg base)/3 mL 3 mL inhalation Q4-6H PRN magnesium oxide 420 mg PO BEDTIME meclizine 25 mg PO DAILY PRN pregabalin (Lyrica) 25 mg PO BID 30 days rivaroxaban (Xarelto) 20 mg PO DAILY 90 days trazodone 150 mg PO BEDTIME Do you need a note to return to daycare/school/sports/work: No HPI HPI COPD: Details: Tova, 79 years old very pleasant female is here for follow-up after 6 months. She has been very stable, luckily free of any acute exacerbation. And has been using Flovent-110 on a 1 puff b.i.d.. She does have ipratropium-albuterol solution to use in the nebulizer, which she has been using once a day in the morning and only if needed in the evening. She has albuterol HFA which she hardly needs to use. Still smoking but has cut down to 7 cigarettes a day., trying to gradually cut down the number of cigarettes. Walks around without much shortness of breath. She does have O2 concentrator at home long with cylinders. But she has not been using the oxygen except if she gets tired and short of breath. [facility] Medical History Nocturnal hypoxemia Basal cell carcinoma History of COVID-19 (~06/2021) Personal history of nicotine dependence Osteopenia (~2009) History of non-ST elevation myocardial infarction (NSTEMI) (~04/2016) COPD (chronic obstructive pulmonary disease) Depression with anxiety Brain aneurysm Bilateral carotid artery stenosis PAF (paroxysmal atrial fibrillation) (~04/2016) Atherosclerotic cardiovascular disease Surgical History History of inguinal hernia repair, bilateral (~2018) History of skin surgery History of arthroscopic surgery of shoulder (~2009) History of carpal tunnel release History of bladder surgery History of thumb surgery History of tubal ligation History of total hysterectomy Family History Father No problems noted. Mother No problems noted. Brother Stroke Social History Household Members: None Housing: Other Housing Other:: mobile home Are you a primary healthcare facility administrator to a significant other at home: No Do you presently have visiting nurse or other home services: Yes ([facility] q6 months) Comment: MEDICATED Patient Tobacco Use Status: Current everyday Tobacco user Tobacco use type: Cigarette Cigarette Packs Per Day: 0.5 Cigarettes Per Day: 7 Years Smoked: 68 e-Cigarette/Vaping Use: Former Use Substance Use Type: Marijuana Advance Directives Date on File: 08/03/23 service: No Current occupational status: retired and disabled Cognitive needs: No Hearing needs: No Vision needs: No Review of Systems Const All systems reviewed & are unremarkable except as noted in HPI and below Eyes Reports no additional complaints ENT Reports no additional complaints Card Denies chest pain and Reports irregular heart rhythm (Paroxysmal atrial fib) Resp Reports as per HPI GI Reports no additional complaints Reports no additional complaints Musc Reports back pain (Chronic, due to compression fractures) Skin/Breast Reports dry skin Neuro Reports memory loss (Minimal) Psych Reports anxiety (Controlled) and Reports memory loss (Minimal) Physical Exam Vital Signs: Last Vital Signs Pulse 114 H 06/16/24 15:34 BP 98/60 06/16/24 15:34 Pulse Ox 93 06/16/24 15:34 Oxygen Delivery Method Room Air 06/16/24 15:34 BMI result Body Mass Index 20.3 Const General: comfortable, no acute distress, alert and awake Orientation/consciousness: patient oriented x3 HEENT Head: Yes normal to inspection General nose exam: No nasal polyps present and No nasal discharge present Face and sinus: Yes sinuses nontender Mouth: oropharynx normal Throat: Yes posterior oropharynx normal Eyes General: appearance normal, both eyes and all related structures Neck Neck: Yes normal visual inspection, Yes no lymphadenopathy, Yes trachea midline and Yes no JVD Thyroid: Thyroid normal Chest Chest palpation & inspection: normal inspection of the chest, normal palpation of entire chest wall and no tenderness Resp Other: Percussion note hyper-resonant. Breath sounds are distant with prolonged expiratory phase, No wheezes or rhonchi are heard. Cardio Palpation: normal PMI Rate: regular rate Rhythm: regular rhythm Heart sounds: no gallops and no murmurs GI Palpation (GI): Soft to palpation, nontender, No hepatosplenomegaly present and no masses Auscultation: normal bowel sounds Back/Spine/Pelvis Thoracic/Lumbar Spine: thoracic and lumbar spine normal to inspection and thoraco-lumbar ROM limited Skin General skin exam: no rashes or lesions noted and dry skin Neuro General: patient oriented x3 and no focal motor deficits Cranial nerves: Yes CN's II-XII intact bilaterally Extrem General: Yes normal to inspection, Yes no clubbing, cyanosis or edema and Yes no calf tenderness Psych Appearance: grossly normal and well kempt Speech and movement: Normal speech and movement present Assessment & Plan Assessment & Plan (1) COPD (chronic obstructive pulmonary disease): Comment: TOVA HAS CUSTODIAL DIAGNOSIS OF CHRONIC OBSTRUCTIVE PULMONARY DISEASE WHICH IS MODERATELY SEVERE. REMAINS STABLE AND CONTROLLED WITH HER CURRENT REGIMEN. Code(s): J44.9 - Chronic obstructive pulmonary disease, unspecified Category: Medical Plan: Continue to use Flovent 110 2 puffs b.i.d. Ipratropium-albuterol solution in the nebulizer Q 6 hours p.r.n. ( OK to use up to twice a day ) O2 2 L/minute p.r.n. for any respiratory distress. OK to come for follow-up once a year, and also as needed (2) Personal history of nicotine dependence: Comment: (onset 9yo, x 67yrs, max 1ppd, now <1/2ppd - 50+PYH) . Has cut down to 7 cigarettes a day and is trying to cut down for the. Patient is participating in Annual lung screening program. Code(s): Z87.891 - Personal history of nicotine dependence Category: Medical Plan: [place] : Talked to her at length about smoking, try to convince her to quit smoking. After hospitalization last year she had quit for a while but then went back to smoking. I had a good talk with her and advised her to keep on cutting down the number of cigarettes. She does have nicotine patches at home and will use only as needed. She is not participating in annual lung screening program regularly. Coding Level of Care Code Est Pt Level 3 (98707) Diagnoses COPD (chronic obstructive pulmonary disease) J44.9 Personal history of nicotine dependence Z87.891
--- OUTSIDE RECORDS SUMMARY | 2024-06-16 16:53 | XMS_ITS ---
Author Organization [facility] Address [address] [facility] [place] [address] Care Team Providers Care Pot Feeder Name Role Phone Jung Randhawa Primary Care Provider Unav arpan JaseannaMireya Unavailable [phone] Allergies Allergen (clinical drug ingredient) Drug/Non Drug Allergy documented on EMR Reaction Allergy Type Onset Date Status bupropion BuPROPion HCl Unknown Drug Allergy Act cordell gabapentin Gabapentin Unknown Drug Allergy Activ e mirtazapine Mirtazapine Unknown Drug Allergy Act cordell naproxen Naproxen Unknown Drug Allergy Active mirtazapine Remeron Unknown Drug Allergy Activ e tramadol Tramadol HCl Unknown Drug Allergy Acti ve clonidine CloNIDine Unknown Drug Allergy Active Medicinal cephalosporin and acting as antibacterial agent (FN) Cephalosporins Unknown Drug Allergy Active REASON FOR VISIT Fungal Nails Medications Medication SIG (Take, Route, Frequency, Duration) Notes Start Date End Date Status Walking Boot/Pneumatic As directed Wear Daily for Until further notice 12/06/2019 Not-Taking Atorvastatin Calcium 40 MG 1 tablet Orally Once a day for 30 day(s) Active clonazePAM 0.5 MG 1 tablet at bedtime Orally Once a day Active Vitamin D3 Active traZODone HCl 150 MG 1 tablet at bedtime Orally Once a day for 30 day(s) Active Multi For Her - as directed Orally Active dilTIAZem HCl 120 MG as directed Orally Active Xarelto 10 MG 1 tablet with food Orally Once a day for 30 day(s) Active Cetirizine HCl 10 MG 1 tablet Orally Onc e a day for 30 day(s) Active Social History Tobacco Use: Social History Observation Description Date Details (start date - stop date) Current Smoker NA - NA Tobacco Use/Smoking Question Answer Notes Are you a: current smoker How many cigarettes a day do you smoke? 6-10 Tobacco use other than smoking: Question Answer Notes Are you an other tobacco user? No Vital Signs Height 5 ft in 04/19/2024 Weight 110 lbs 04/19/2024 BMI 21.48 kg/m2 04/19/2024 Encounters Encounter Location Date Provider Diagnosis [facility] [address] [address] 04/19/2024 Mireya Darby Fungal infection of nail B35.1 ; Pain of toe of right foot M79.674 and Pain of toe of left foot M79.675 Assessments Encounter Date Diagnosis (ICD Code) Assessment Notes Treatment Notes Treatment Clinical Notes Section Notes 04/19/2024 Fungal infection of nail (ICD-10 - B35.1) 04/19/2024 Pain of toe of right foot (ICD-10 - M79.674) 04/19/2024 Pain of toe of left foot (ICD-10 - M79.675) Plan Of Treatment Next Appt Details Follow Up: 3 Months, Reason: Provider Name:Mireya castillo, 07/19/2024 01:00:00 PM, [address] [place] [address], [id number], Procedure Notes * Category Sub-Category Detail Notes Debride Nail 6-10 Nail debridement Nail debridem ent performed extensively to reduce/remove overall nail length and girth, subungual debris, and necrotic tissue, by manual and electrical means with use of a nail nipper and/or dremel, to more viable healthy nail plate or bed tissue 6-10. Silver nitrate used for any petechial bleeding as necessary. Patient chooses, no pharmaceutical tx (31255) Progress Notes * Tova LOPEZDOB:1945 (79 yo F)Acc No.[id number]:04/19/2024 Progress Note Patient:?OLENA Tova Provider:?Mireya Darby DPM :1945???Age:79 Y???Sex:Female D ate:04/19/2024 Address: [address] , [id number] Pcp:MONIQUE Yeung Subjective: * Chief Complaints: * ???Fungal Nails * HPI: ???Painful Nails:?Pt States Last PCP Visit:?Date:?08/17/2023 * ROS:?General/Constitutional:?Nausea?denies.?Vomiting?denies.?Hunger Thirst?denies.?Loss appetite?denies.?Chills?denies.?Fatigue?denies.?Fever?denies.?Night Sweats?denies.?Unexplained weight loss?denies.?Unexplained weight gain?denies.?HEENTM:?Dentures?denies.?Dizziness?denies.?Glasses/contacts?admits.?Retinopathy?de nies.?Blurred/double vision?denies.?TMJ?denies.?Discharge/drainage?denies.?Implants?denies.?Sore throat?denies.?Dental implants?denies.?Hard of hearing ?denies.?Difficulty chewing/swallowing/speaking?denies.?Nose bleeds?denies.?Sore mouth?denies.?Respiratory:?On Oxygen?denies.?Pneumonia/pleurisy?denies.?Bronchitis?denies.?Emphysema?denies.?C oughing?denies.?Cough blood?denies.?Shortness of breath?denies.?Wheezing?denies.?Cardiovascular:?Pacemaker?denies.?MVP?denies.?WPW?denies.?CHF?denies.?Heart attack?denies.?Septal defect?denies.?Rapid beat?denies.?Chest pain ?denies.?Atrial Fib.?denies.?Murmur/Palpitations?denies.?Gastrointestinal:?Hemorrhoids?denies.?Stomach/Abdominal pain?denies.?Dark blood stool?denies.?Irritable bowel ?denies.?Constipation?denies.?Diarrhea?denies.?Hematology:?Swelling?denies.?Clots?denies.?Varicose Veins?denies.?Bruising?denies.?Bleeding problem?denies.?Genitourinary:?Blood urine?denies.?Frequent/Painfu/urination/bladder control?denies.?Kidney stones?denies.?Infection (UTI)?denies.?Nephropathy?denies.?sex trans dis (STD)?denies.?Prostate?denies.?Musculoskeletal:?Hammertoes?denies.?Bunions?denies.?Back Pain?denies.?Muscle Cramps/ Resting?denies.?Muscle cramps / walking?denies.?Generalized aches and pains?denies.?Weakness?denies.?Integ.:?Storey?denies.?Scars?denies.?Corns/calluses?denies.?Ingrown nails?denies.?Painful nails?denies.?Open Sores?denies.?Rashes?denies.?Neurologic:?Difficulty sleeping?denies.?Brain disorder?denies.?Numbness?denies.?Balance trouble?denies.?Confusion?denies.?Fainting/blackouts?denies.?Tingling?denies.?Tr emors?denies.? * Medical History:? * Surgical History:?hysterecto my Hernia Repair X2 tubal ligation cancer surgery- nose and leg carpal tunnel surgery spinal stimulator put in and then removed due to pain * Hospitalization/Major Diagno stic Procedure:?[facility] influenza 08/10/2023 * Family History:?Mother: dece ased.?Father: .?Siblings: diagnosed with Diabetic - NIDDM.? * Social History:?Tobacco Use:?Tobacco Use/Smoking?Are you a:?current smoker ?How many cigarettes a day do you smoke??6-10 ?Tobacco use other than smoking?Are you an other tobacco user??No ???Miscellaneous:?Caffeine: yes, 1/2 cup decaf. ?Children: yes. ?Exercise: no. ?Marital status: . 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 * Medications:?TakingMulti For Her - Tablet as directed Orally dilTIAZem HCl 120 MG Tablet as directed Orally Xarelto 10 MG Tablet 1 tablet with food Orally Once a day Cetirizine HCl 10 MG Tablet 1 tablet Orally Once a day Atorvastatin Calcium 40 MG Tablet 1 tablet Orally Once a day clonazePAM 0.5 MG Tablet 1 tablet at bedtime Orally Once a day Vitamin D3 traZODone HCl 150 MG Tablet 1 tablet at bedtime Orally Once a day Taking Multi For Her - Tablet as directed Orally Taking dilTIAZem HCl 120 MG Tablet as directed Orally Taking Xarelto 10 MG Tablet 1 tablet with food Orally Once a day Taking Cetirizine HCl 10 MG Tablet 1 tablet Orally Once a day Taking Atorvastatin Calcium 40 MG Tablet 1 tablet Orally Once a day Taking clonazePAM 0.5 MG Tablet 1 tablet at bedtime Orally Once a day Taking Vitamin D3 Taking traZODone HCl 150 MG Tablet 1 tablet at bedtime Orally Once a day Not-Taking/PRNWalking Boot/Pneumatic As directed Wear Daily Medication List reviewed and reconciled with the patientNot-Taking/PRN Walking Boot/Pneumatic As directed Wear Daily Medication List reviewed and reconciled with the patient * Allergies:?Tramadol HClNapro xenCloNIDineRemeronBuPROPion HClMirtazapineGabapentinCephalosporinsyes[Allergies Verified] Objective: * Vitals:?Ht: 5 ft, Wt: 110, B TN: 21.48, Shoe size: 8, Ht-cm: 152.4 cm, Wt-k.9 kg. * Examination: ???Nails: ?NAILS are:?Elongated, overgrown, dystrophic, lytic, greater than 3mm thick, discolored and friable with crumbly malodorous subungual debris, with pain on palpation , 1-5 B/L.? Assessment: * Assessment: 1.?Pain of toe of right foot - M79.674???2.?Fungal infection of nail - B35.1 (Primary)???3.?Pain of toe of left foot - M79.675??? Plan: * Treatment: * Procedures:?Debride Nail 6-10:?Nail debridement?Nail debridement performed extensively to reduce/remove overall nail length and girth, subungual debris, and necrotic tissue, by manual and electrical means with use of a nail nipper and/or dremel, to more viable healthy nail plate or bed tissue 6-10. Silver nitrate used for any petechial bleeding as necessary. Patient chooses, no pharmaceutical tx (95757).? * Procedure Codes:?48784 DEBRI DE NAIL, 6 OR MORE, Modifiers: XS * Follow Up:?3 Months * Images: * Sign off status: Completed true * Provider:?Mireya Darby, JERARDO Date:?05/2024 Generated for Jacinto delatorre/Love/Tez on:?06/16/2024 04:53 PM EST History and Physical Notes * HPI (History of Present Illness) Category Sub-Category Detail Notes Category Not es Painful Nails Pt States Last PCP Visit: Date:: 08/17/2023 Examination Category Sub-Category Detail Notes Category Not es Nails NAILS are: Elongated, overg rown, dystrophic, lytic, greater than 3mm thick, discolored and friable with crumbly malodorous subungual debris, with pain on palpation , 1-5 B/L
--- OUTSIDE RECORDS SUMMARY | 2024-06-16 16:53 | XMS_ITS ---
[facility] Address [address] [facility] [place] [address] Care Team Providers Care Forepart Laster Name Role Phone Jung Randhawa Primary Care Provider Unav ailable JaseMireya castillo Unavailable [phone] Alexandru Malik Unavailable [phone] Allergies Allergen (clinical drug ingredient) Drug/Non Drug [...] Drug Allergy Active REASON FOR VISIT Fungal Nails, Ingrown Nail Medications Medication SIG (Take, Route, Frequency, Duration) Notes Start Date End Date Status Vitamin D3 Active traZODone HCl 150 MG 1 tablet at bedtime Orally Once a day for 30 day(s) Active Atorvastatin Calcium 40 MG 1 tablet Orally Once a day for 30 day(s) Active clonazePAM 0.5 MG 1 tablet at bedtime Orally Once a day Active Walking Boot/Pneumatic As directed Wear Daily for Until further notice 12/06/2019 Not-Taking Multi For Her - as directed Orally Active Cetirizine HCl 10 MG 1 tablet Orally Onc e a day for 30 day(s) Active dilTIAZem HCl 120 MG as directed Orally Active Xarelto 10 MG 1 tablet with food Orally Once a day for 30 day(s) Active Social [...] No Vital Signs Height 5 ft in 02/03/2024 Weight 114 lbs 02/03/2024 BMI 22.26 kg/m2 02/03/2024 Encounters Encounter Location Date Provider Diagnosis [facility] [place] [address] [place] [address] 02/03/2024 Alexandru Malik Fungal infection of nail B35.1 ; Pain of toe of right foot M79.674 ; Pain of toe of left foot M79.675 and Ingrown nail L60.0 Assessments Encounter Date Diagnosis (ICD Code) Assessment Notes Treatment Notes Treatment Clinical Notes Section Notes 02/03/2024 Fungal infection of nail (ICD-10 - B35.1) 02/03/2024 Pain of toe of right foot (ICD-10 - M79.674) 02/03/2024 Pain of toe of left foot (ICD-10 - M79.675) 02/03/2024 Ingrown nail (ICD-10 - L60.0) Plan Of Treatment Next Appt Details Follow Up: 3 Months, Reason: Provider Name:Mireya castillo, 07/19/2024 01:00:00 PM, [address] [place] [address], [id number], Procedure Notes * Category Sub-Category Detail Notes Nail Avulsion Procedure A fine sterile e levator was placed between the eponychium, nail fold, and nail plate to separate the structures. A sterile nail splitter, and/or sterile 316 blade, was then used to longitudinally section the nail along its entire length through the eponychium to the area under the nail fold. The offending portion of nail was from the nail bed with a rolling action and then removed with a hemostat. No underlying bone was identified. There was minimal bleeding as hemostasis was achieved through the temporary use of either a digital tourniquet or the aforementioned local with epinephrine. A bacitracin sterile dressing was applied. Local wound aftercare instructions were discussed and dispensed. The patient was informed of both conservative and future surgical procedures to prevent recurrence. Tylenol or Motrin was recommended for pain or discomfort (32005) Anesthesia was deferred - PT AB SOLUTELY REFUSES - tolerant to pain without issue/complication Location Lateral nail border , T5 Debride Nail 6-10 Nail debridement Nail debridem ent performed extensively to reduce/remove overall nail length and girth, subungual debris, and necrotic tissue, by manual and electrical means with use of a nail nipper and/or dremel, to more viable healthy nail plate or bed tissue 6-10. Silver nitrate used for any petechial bleeding as necessary. Patient chooses, no pharmaceutical tx (70705) Progress Notes * Tova LOPEZDOB:1945 (79 yo F)Acc No.[id number]:02/03/2024 Progress Note Patient:?Tova Lopez Provider:?Alexandru Malik DPM :1945???Age:79 Y???Sex:Female D ate:02/03/2024 Address: [address] [facility] Pcp:MONIQUE Yeung Subjective: * Chief Complaints: * ???Fungal NailsIngrown Nail * HPI: ???Painful Nails:?Pt States Last PCP Visit:?Date:?08/17/2023 * ROS:?General/Constitutional:?Nausea?denies, denies, denies.?Vomiting?denies, denies, denies.?Hunger Thirst?denies, denies, denies.?Loss appetite?denies, denies, denies.?Chills?denies, denies, denies.?Fatigue?denies, denies, denies.?Fever?denies, denies, denies.?Night Sweats?denies, denies, denies.?Unexplained weight loss?denies, denies, denies.?Unexplained weight gain?denies, denies, denies.?HEENTM:?Dentures?denies, denies, denies.?Dizziness?denies, denies, denies.?Glasses/contacts?admits, admits, admits.?Retinopathy?denies, denies, denies.?Blurred/double vision?denies, denies, denies.?TMJ?denies, denies, denies.?Discharge/drainage?denies, denies, denies.?Implants?denies, denies, denies.?Sore throat?denies, denies, denies.?Dental implants?denies, denies, denies.?Hard of hearing ?denies, denies, denies.?Difficulty chewing/swallowing/speaking denies, denies, denies.?Nose bleeds?denies, denies, denies.?Sore mouth?denies, denies, denies.?Respiratory:?On Oxygen?denies, denies, denies.?Pneumonia/pleurisy?denies, denies, denies.?Bronchitis?denies, denies, denies.?Emphysema?denies, denies, denies.?Coughing?denies, denies, denies.?Cough blood?denies, denies, denies.?Shortness of breath?denies, denies, denies.?Wheezing?denies, denies, denies.?Cardiovascular:?Pacemaker?denies, denies, denies.?MVP?denies, denies, denies.?WPW?denies, denies, denies.?CHF?denies, denies, denies.?Heart attack?denies, denies, denies.?Septal defect?denies, denies, denies.?Rapid beat denies, denies, denies.?Chest pain ?denies, denies, denies.?Atrial Fib.?denies, denies, denies.?Murmur/Palpitations?denies, denies, denies.?Gastrointestinal:?Hemorrhoids?denies, denies, denies.?Stomach/Abdominal pain?denies, denies, denies.?Dark blood stool?denies, denies, denies.?Irritable bowel ?denies, denies, denies.?Constipation?denies, denies, denies.?Diarrhea?denies, denies, denies.?Hematology:?Swelling?denies, denies, denies.?Clots?denies, denies, denies.?Varicose Veins?denies, denies, denies.?Bruising?denies, denies, denies.?Bleeding problem?denies, denies, denies.?Genitourinary:?Blood urine?denies, denies, denies.?Frequent/Painfu/urination/bladder control?denies, denies, denies.?Kidney stones?denies, denies, denies.?Infection (UTI)?denies, denies, denies.?Nephropathy?denies, admits, denies. sex trans dis (STD)?denies, denies, denies.?Prostate?denies, denies, denies.?Musculoskeletal:?Hammertoes?denies, denies, denies.?Bunions?denies, admits, denies.?Back Pain?denies, denies, denies.?Muscle Cramps/ Resting?denies, denies, denies.?Muscle cramps / walking?denies, denies, denies.?Generalized aches and pains?denies, admits, denies.?Weakness?denies, denies, denies.?Integ.:?Storey?denies, denies, denies.?Scars?denies, denies, denies.?Corns/calluses?denies, denies, denies.?Ingrown nails?admits, admits, denies.?Painful nails?admits, denies, denies.?Open Sores?denies, denies, denies.?Rashes?denies, denies, denies.?Neurologic:?Difficulty sleeping?denies, denies, denies.?Brain disorder?denies, denies, denies.?Numbness?denies, denies, denies.?Balance trouble?denies, denies, denies.?Confusion?denies, denies, denies.?Fainting/blackouts?denies, denies, denies.?Tingling?denies, denies, denies.?Tremors?denies, denies, denies.? * Medical History:? * Surgical History:?hysterecto my Hernia Repair X2 tubal ligation cancer surgery- nose and leg carpal tunnel surgery spinal stimulator put in and then removed due to pain * Hospitalization/Major Diagno stic Procedure:?[facility] influenza 08/10/2023 * Family History:?Mother: dece ased.?Father: .?Siblings: diagnosed with Diabetic - NIDDM.? * Social History:?Tobacco Use:?Tobacco Use/Smoking?Are you a:?current smoker ?How many cigarettes a day do you smoke??6-10 ?Tobacco use other than smoking?Are you an other tobacco user??No ???Drugs/Alcohol:?Drugs?Have you used drugs other than those for medical reasons in the past 12 months??No ?Alcohol Screen?Did you have a drink containing alcohol in the past year??No ?Points?0 ?Interpretation?Negative * Medications:?TakingMulti For Her - Tablet as directed Orally dilTIAZem HCl 120 MG Tablet as directed Orally Xarelto 10 MG Tablet 1 tablet with food Orally Once a dayCetirizine HCl 10 MG Tablet 1 tablet Orally Once a dayAtorvastatin Calcium 40 MG Tablet 1 tablet Orally Once a dayclonazePAM 0.5 MG Tablet 1 tablet at bedtime Orally Once a dayVitamin D3 traZODone HCl 150 MG Tablet 1 tablet at bedtime Orally Once a dayTaking Multi For Her - Tablet as directed Orally Taking dilTIAZem HCl 120 MG Tablet as directed Orally Taking Xarelto 10 MG Tablet 1 tablet with food Orally Once a dayTaking Cetirizine HCl 10 MG Tablet 1 tablet Orally Once a dayTaking Atorvastatin Calcium 40 MG Tablet 1 tablet Orally Once a dayTaking clonazePAM 0.5 MG Tablet 1 tablet at bedtime Orally Once a dayTaking Vitamin D3 Taking traZODone HCl 150 MG Tablet 1 tablet at bedtime Orally Once a dayNot-Taking/PRNWalking Boot/Pneumatic As directed Wear DailyMedication List reviewed and reconciled with the patientNot-Taking/PRN Walking Boot/Pneumatic As directed Wear DailyMedication List reviewed and reconciled with the patient * Allergies:?Tramadol HClNapro xenCloNIDineRemeronBuPROPion HClMirtazapineGabapentinCephalosporinsyes[Allergies Verified] Objective: * Vitals:?Ht: 5 ft, Wt: 114, B VA:22.26, Shoe size: 8. * Examination: ???Nails: ?NAILS are:?Elongated, overgrown, dystrophic, lytic, greater than 3mm thick, discolored and friable with crumbly malodorous subungual debris, with pain on palpation , 1-5 B/L.?Ingrown Nail: ?INSPECTION:?Reveals nail incurvation, pain on palpation, groove hypertrophy , Lateral nail border , T7.? Assessment: * Assessment: 1.?Pain of toe of right foot - M79.674?2.?Fungal infection of nail - B35.1 (Primary)?3.?Pain of toe of left foot - M79.675?4.?Ingrown nail - L60.0? Plan: * Treatment: * Procedures:?Debride Nail 6-10:?Nail debridement?Nail debridement performed extensively to reduce/remove overall nail length and girth, subungual debris, and necrotic tissue, by manual and electrical means with use of a nail nipper and/or dremel, to more viable healthy nail plate or bed tissue 6-10. Silver nitrate used for any petechial bleeding as necessary. Patient chooses, no pharmaceutical tx (39136).?Nail Avulsion:?Location?Lateral nail border , T5.?Anesthesia?was deferred - PT ABSOLUTELY REFUSES - tolerant to pain without issue/complication.?Procedure?A fine sterile elevator was placed between the eponychium, nail fold, and nail plate to separate the structures. A sterile nail splitter, and/or sterile 316 blade, was then used to longitudinally section the nail along its entire length through the eponychium to the area under the nail fold. The offending portion of nail was from the nail bed with a rolling action and then removed with a hemostat. No underlying bone was identified. There was minimal bleeding as hemostasis was achieved through the temporary use of either a digital tourniquet or the aforementioned local with epinephrine. A bacitracin sterile dressing was applied. Local wound aftercare instructions were discussed and dispensed. The patient was informed of both conservative and future surgical procedures to prevent recurrence. Tylenol or Motrin was recommended for pain or discomfort (76243).? * Procedure Codes:?37392 DEBRI DE NAIL, 6 OR MORE, Modifiers: XS 34026 Avulsion Plate, Modifiers: T7 * Follow Up:?3 Months * Images: * Sign off status: Completed true * Provider:?Alexandru Malik DPM Date:? 024 Generated for Jacinto delatorre/Love/Tez on:?06/16/2024 04:53 PM EST History and Physical Notes * HPI (History of Present Illness) Category Sub-Category Detail Notes Category Not es Painful Nails Pt States Last PCP Visit: Date:: 08/17/2023 Examination Category Sub-Category Detail Notes Category Not es Ingrown Nail INSPECTION: Reveals nail inc urvation, pain on palpation, groove hypertrophy , Lateral nail border , T7 Nails NAILS are: Elongated, overg rown, dystrophic, lytic, greater than 3mm thick, discolored and friable with crumbly malodorous subungual debris, with pain on palpation , 1-5 B/L
--- OUTSIDE RECORDS SUMMARY | 2024-06-16 16:53 | XMS_ITS ---
Author Organization [facility] Address [address] [place] [address] Care Team Providers Care Time Signal Wirer Name Role Phone Jung Randhawa Primary Care Provider Unav ailable Mireya Darby Unavailable [phone] REASON FOR VISIT Seen Sooner Encounters Encounter Location Date Provider Diagnosis [address] [address] 02/16/2024 Mireya Darby Plan Of Treatment Next Appt Details Provider Name:Mireya castillo, 07/19/2024 01:00:00 PM, [address] [place] [address], [phone], Progress Notes * Tova LOPEZDOB:1945 (79 yo F)Acc No.[id number]:02/16/2024 Progress Note Patient:?Tova LOPEZ Provider:?Mireya Darby DPM :1945???Age:79 Y???Sex:Female D ate:02/16/2024 Address[address] [place] Pcp:MONIQUE Yeung Subjective: * Chief Complaints: * ???1. Seen Sooner. * Medical History:? Objective: * Vitals:? Assessment: Plan: * Treatment: * Images: * The named appointment provid er may or may not be the originator of this progress note, and it is not deemed complete until electronically signed by the appointment provider. Sign off status: Pending * Provider:?Mireya Darby DPM Date:?03/2024 Generated for Jacinto delatorre/Love/Tez on:?06/16/2024 04:53 PM EST
--- OUTSIDE RECORDS SUMMARY | 2024-06-16 16:53 | XMS_ITS | Patient Health Record ---
[facility] Organization [facility] Address [address] [facility] [place] [address] Care Team Providers Care Spring Upholsterer Name Role Phone Jung Randhawa Primary Care Provider Lb adlerelsy JaseMireya castillo Unavailable [phone] Alexandru Malik Unavailable [phone] Allergies Allergen (clinical drug ingredient) Drug/Non Drug [...] agent (FN) Cephalosporins Unknown Drug Allergy Active Reason For Referral No Information Medications Medication SIG (Take, Route, Frequency, Duration) [...] 04/19/2024 Encounters Encounter Location Date Provider Diagnosis [address] [address] 09/01/2023 Mireya Darby Fungal infection of nail B35.1 ; Pain of toe of right foot M79.674 and Pain of toe of left foot M79.[address] [address] 12/01/2023 Mireya Darby Fungal infection of nail B35.1 ; Pain of toe of right foot M79.674 ; Pain of toe of left foot M79.675 and Ingrown nail L60.[address] [address] 02/03/2024 Alexandru Malik Fungal infection of nail B35.1 ; Pain of toe of right foot M79.674 ; Pain of toe of left foot M79.675 and Ingrown nail L60.[address] [address] 04/19/2024 Mireya Darby Fungal infection of nail B35.1 ; Pain of toe of right foot M79.674 and Pain of toe of left foot M79.[address] [address] 06/30/2023 Mireya Darby Assessments Encounter Date Diagnosis (ICD Code) Assessment Notes Treatment Notes Treatment Clinical Notes Section Notes 09/01/2023 Pain of toe of right foot (ICD-10 - M79.674) 09/01/2023 Fungal infection of nail (ICD-10 - B35.1) 12/01/2023 Fungal infection of nail (ICD-10 - B35.1) 02/03/2024 Pain of toe of right foot (ICD-10 - M79.674) 02/03/2024 Fungal infection of nail (ICD-10 - B35.1) 04/19/2024 Pain of toe of right foot (ICD-10 - M79.674) 04/19/2024 Fungal infection of nail (ICD-10 - B35.1) 02/03/2024 Pain of toe of left foot (ICD-10 - M79.675) 04/19/2024 Pain of toe of left foot (ICD-10 - M79.675) 12/01/2023 Pain of toe of right foot (ICD-10 - M79.674) 09/01/2023 Pain of toe of left foot (ICD-10 - M79.675) 12/01/2023 Pain of toe of left foot (ICD-10 - M79.675) 02/03/2024 Ingrown nail (ICD-10 - L60.0) 12/01/2023 Ingrown nail (ICD-10 - L60.0) Plan Of Treatment Pending Test Test Name Order Date X ray : Foot, left 3V 11/29/2019 X ray : Foot, left 3V 12/06/2019 [id number] Unna Boot 11/29/2019 Next Appt Details Provider Name:Mireya castillo, 07/19/2024 01:00:00 PM, [address] [place], [address], Insurance Providers Payer Name Payer Address Payer Phone Subscriber Number Group Number Insured Name Patient Relationship to Insured Coverage Start Date Coverage End Date [facility] [employer] Claims [address] [facility] [place] [id number] Tova Lopez Self - patient is the insured Medical (General) History Medical History History ICD Code Anxiety Arthritis asthma Cancer Fibromyalgia Heart disease Hepatitis C COPD Osteoporosis Sciatica Warts Measles Surgical History Surgery Date(Month/Year) hysterectomy Hernia Repair X2 tubal ligation cancer surgery- nose and leg carpal tunnel surgery spinal stimulator put in and then remove d due to pain Hospitalization History Reason Date(Month/[place] [facility] [place]
--- OUTSIDE RECORDS SUMMARY | 2024-06-16 16:54 | XMS_ITS | Data Portability ---
Author Organization [facility] Address [address] [place] [address] Care Team Providers Care Lap Grinder Name Role Phone HIM CCA OTHER Assessment Encounter Date Assessment Date Assessment LastModified by Organization Details LastModified Time 11/30/2023 11/30/2023 I provided real -time medical direction via phone for this encounter and was available for additional phone-based assistance as needed. I have reviewed and agree with the Assessment and Plan as documented by the Coal Yard Supervisor. Patient given the opportunity to ask questions. Our service contacted for an assessment of: Chronic BACK pain As per above, patient with hx of chronic pain. No new or worsening red S&S. No new bowel/bladder symptoms. No new gait abnl. No new neurological signs, symptoms or deficits. Per research geneticist on the scene, VSS, non-toxic. Neuro grossly intact. No CKI but does take blood thinners. No NSAID today Impression: Chronic LBP Plan: Tylenol 650 po times one. F/u with PCP. Red flags to be discussed as to when to seek a higher level of care. We discussed the diagnostic uncertainty of home visits and the risk associated with this. In this case, the patient and I felt this to be an acceptable and reasonable amount of risk given the benefit of avoiding an ED visit. We discussed the need to seek care urgently/emergen tly in the setting of any new or worsening serious symptoms [email or web address] Not available 11/30/2023 12:32:44 01/12/2024 01/12/2024 service called for constipation found 78 stefania with hx chronic pain, COPD c/o constipation, conitnued back pain, loss appetitie recently had removal of spinal device for pain control short course PO oxycodone for acute pain control thereafter now experiencing loss appetitie, constipation prior to visit pt took mag hydrox PO with resultant BM current pain adequately controlled with PO acetaminophen VSS reported abd s/nt, slightly distended #Constipation likely opioid related pt continue monitor BM and use mag hydrox PRN expect appetitie to return as constipation resolves continue with planned surgical f/up otherwise return to primary team [email or web address] Not available 01/13/2024 07:44:07 Plan of Treatment Reminders Order Date Submit Date Provider Last Modified By Organization Details Last Modified Time Details Appointments None recorded. Lab None recorded. Referral None recorded. Procedures None recorded. Surgeries None recorded. Imaging None recorded. Medication Orders ketorolac 15 mg/mL injection solution 2023 024 [email or web address] [id number], [address] [place], [address], 22:18:07 ketorolac 30 mg/mL injection solution 2023 024 [email or web address] [id number], [address] [place], [address], 17:51:25 Patient TargetsNo targets recorded. Patient InstructionsNo instructions recorded. Reason for Referral None Reported. Medical Equipment None Reported. Medications Name Sig Start Date Stop Date Status Note LastModified by Organization Details LastModified Time ketorolac 15 mg/mL injection solution Inject 15 mg by intramuscul ar route. 2023 active Not Available Not Available Not Avai lable atorvastatin 40 mg tablet TAKE 1 TABLET BY MOUTH DAILY active Not Available Not Available Not Available ipratropium 0.5 mg-albuterol 3 mg (2.5 mg base)/3 mL nebulization soln INHALE 3 ML INHALED EVERY 4 TO 6 HOURS NEEDED FOR WHEEZING active Not Available Not Available No t Available clindamycin HCl 300 mg capsule PLEASE SEE ATTACHED FOR DETAILED DIRECTIONS active Not Available Not Available N ot Available albuterol sulfate 2.5 mg/3 mL (0.083 %) solution for nebulization INHALE 1 VIAL VIA NEBULIZER THREE TIMES A DAY active Not Available Not Available No t Available cetirizine 10 mg tablet TAKE 1/2 TABLET BY MOUTH DAILY NEEDED FOR ALLERGIES active Not Available Not Available No t Available azithromycin 250 mg tablet TAKE 2 TABLETS BY MOUTH TODAY, THEN TAKE 1 TABLET DAILY FOR 4 DAYS DIRECTED active Not Available Not Available No t Available ofloxacin 0.3 % eye drops PUT 2 DROPS IN TO THE AFFECTED EYE(S) 4 TIMES A DAY active Not Available Not Available Not Available prednisone 20 mg tablet TAKE 2 TABLETS ORALLY DAILY FOR 5 DAYS active Not Available Not Available No t Available clonazepam 0.5 mg tablet TAKE 1 TABLET BY MOUTH THREE TIMES A DAY NEEDED FOR SEVERE ANXIETY active Not Available Not Available No t Available sulfamethoxa zole 800 mg-trimethop rim 160 mg tablet TAKE 1 TAB ORALLY 2 TIMES A DAY FOR 3 DAYS active Not Available Not Available N ot Available prednisolone acetate 1 % eye drops,suspen bakari INSTILL 1 DROP INTO BOTH EYES TWICE A DAY active Not Available Not Available Not Available trazodone 150 mg tablet TAKE 1 TABLET BY MOUTH EVERY DAY AT BEDTIME NEEDED FOR INSOMNIA active Not Available Not Available No t Available neomycin-kira ymyxin-dexam eth 3.5 mg/mL-10,000 unit/mL-0.1% eye drops PUT 1 DROP INTO AFFECTED EYE(S) EVERY 12 HOURS FOR 7 DAYS active Not Available Not Available No t Available prednisone 50 mg tablet TAKE 1 TABLET BY MOUTH EVERY DAY FOR 5 DAYS active Not Available Not Available No t Available polymyxin B sulfate 10,000 unit-trimeth oprim 1 mg/mL eye drops PLEASE SEE ATTACHED FOR DETAILED DIRECTIONS active Not Available Not Available N ot Available ammonium lactate 12 % topical cream APPLY AM AND PM TO THE BODY THROUGHOUT active Not Available Not Available N ot Available cefuroxime axetil 500 mg tablet TAKE 1 TABLET BY MOUTH EVERY 12 HOURS X5 DAYS active Not Available Not Available No t Available albuterol sulfate HFA 90 mcg/actuatio n aerosol inhaler INHALE 2 PUFFS BY MOUTH EVERY 6 HOURS NEEDED FOR BRONCHOSPAS M active Not Available Not Available No t Available oxycodone 5 mg tablet TAKE ONE TABLET EVERY 4 HOURS NEEDED FOR POSTOPERATI VE PAIN FOR 5 DAYS active Not Available Not Available No t Available enoxaparin 40 mg/0.4 mL subcutaneous syringe PLEASE SEE ATTACHED FOR DETAILED DIRECTIONS active Not Available Not Available N ot Available azithromycin 500 mg tablet TAKE 1 TABLET ORALLY DAILY FOR 3 DAYS active Not Available Not Available No t Available memantine 5 mg tablet TAKE 1 TABLET BY MOUTH EVERY MORNING active Not Available Not Available No t Available Flovent HFA 110 mcg/actuatio n aerosol inhaler INHALE 1 PUFF BY MOUTH TWICE DAILY active Not Available Not Available No t Available budesonide 1 mg/2 mL suspension for nebulization INHALE 1 VIAL VIA NEBULZIER ONCE DAILY active Not Available Not Available N ot Available ketorolac 30 mg/mL injection solution Inject 15 mg. 2023 active Not Available Not Available Not Avai lable Xarelto 20 mg tablet TAKE 1 TABLET BY MOUTH DAILY active Not Available Not Available Not Available Tiadylt ER 120 mg capsule,exte nded release TAKE 1 CAPSULE BY MOUTH EVERY DAY active Not Available Not Available No t Available Vitals Date Recorded Respiratory rate Oxygen saturation Oxygen saturation in Arterial blood by Pulse oximetry Heart rate Body temperature Systolic blood pressure Diastolic blood pressure Provider Name and Address Organization Details Last Updated DateTime 4 18 /min 94 % 94 % 99 /min 99.2 [degF] 98 mm[Hg] 60 mm[Hg] Not Available [facility] 4 12:30:09 Date Recorded Respiratory rate Heart rate Body height Body weight Body temperature Oxygen saturation Oxygen saturation in Arterial blood by Pulse oximetry Systolic blood pressure Diastolic blood pressure Provider Name and Address Organization Details Last Updated DateTime 4 18 /min 96 /min 152.4 cm 70216.1 2 g 98.1 [degF] 93 % 93 % 134 mm[Hg] 80 mm[Hg] Not Available [facility] 4 20:33:59 Date Recorded Body temperature Oxygen saturation Oxygen saturation in Arterial blood by Pulse oximetry Heart rate Respiratory rate Systolic blood pressure Diastolic blood pressure Provider Name and Address Organization Details Last Updated DateTime 4 98 [degF] 96 % 96 % 122 /min 16 /min 110 mm[Hg] 60 mm[Hg] Not Available [facility] 4 18:46:11 Date Recorded Body temperature Oxygen saturation Oxygen saturation in Arterial blood by Pulse oximetry Respiratory rate Heart rate Systolic blood pressure Diastolic blood pressure Provider Name and Address Organization Details Last Updated DateTime 4 98.5 [degF] 94 % 94 % 18 /min 77 /min 108 mm[Hg] 56 mm[Hg] Not Available [facility] 4 18:24:53 Social History None recorded. Functional Status None recorded. Mental Status None recorded. Family History Nothing Reported. Medical History No medical history recorded. Gynecological HistoryNo gynecological history recorded. Obstetrics History GPAL:G 0 P 0 0 0 0 Past Encounters Encounter ID Performer Location Encounter Start Date Encounter Closed Date Diagnosis/Indication Diagnosis SNOMED-CT Code Diagnosis ICD10 Code Diagnosis Note [id number] Tori Calzada MD [facility] [address] [place] [address] 11/30/2023 12:30:07 11/30/2023 21:50:24 Chronic low back pain 015814097 M54.50 [id number] Edd Cat MD [facility] [address] [place] [address] 12/11/2023 20:33:57 12/12/2023 20:49:45 Chronic low back pain 372348859 M54.50 Reports acute-on-c hronic low back pain in the setting of malfunctio ca spinal cord stimulator . No new symptomato logy. Requesting pain control. Plan for ketorolac x1 (given report of Xarelto). Recommende d close follow-up with primary surgeon. [id number] Shawna Watts MD [facility] [address] [place] [address] 12/13/2023 17:25:05 12/14/2023 14:46:05 Chronic low back pain 259567205 M54.50 Evaluation in the field was performed by my research geneticist colleague, as noted above, I provided real-time direction and supervisio n for this visit. 78yo F degenerati ve disk disease followed by pain mgmt clinic p/w ongoing back pain with muscle spasm. No new symptomato logy or red flags to warrant emergent imaging. Requesting pain control, on Xaralto and ketorolac x1 given 2d ago (no other NSAIDs). Discussed at length risk for serious (even fatal) GI bleed given use of NSAIDs and anticoagul ation as well as kidney damage iso frequent toradol use. Pt articulate s understand ing and would like to received repeat dose today despite these risks, 15 mg IM given x1 with instructio ns to avoid other NSAIDs. For PCP: encourage urgent appt to discuss pain mgmt strategy as pt is not a good candidate for ongoing use of toradol for pain control. Consider trigger point injections and further investigat ion if implanted leads for ?stimulato r/TENS? are functionin g. We discussed the diagnostic uncertaint y of home visits and the risk associated with this. In this case, the patient and I felt this to be an acceptable and reasonable amount of risk given the benefit of avoiding an ED visit. We discussed the need to seek care urgently/e mergently in the setting of any new or worsening serious symptoms, shortness of breath, cough, chest pain, fever. [id number] Morgan Curtis MD [address] [phone] 01/12/2024 18:24:51 01/13/2024 12:27:40 [facility] [id number] K59.00 Health Concerns Section Related Observation LastModified by Organization Detai ls LastModified Time None Recorded Concern Status LastModified by Organization Details LastModified Time None Recorded Advance Directives Directive None Recorded Payers Encounter Date Sequence Insurance Name Policy Number Policy Richardson Covered Member ID Richardson Member ID Guarantor Name 11/30/2023 1 [facility] - DOS ON OR AFTER 2022 - DUAL ELIGIBLE - HALF-WAY OPTIONS AND ONE CARE (MEDICARE REPLACEMENT/ADV ANTAGE - HMO) Tova Lopez [id number] Tova Lopez 12/11/2023 1 [facility] - DOS ON OR AFTER 2022 - DUAL ELIGIBLE - HALF-WAY OPTIONS AND ONE CARE (MEDICARE REPLACEMENT/ADV ANTAGE - HMO) Tova Lopez [id number] Tova Lopez 12/13/2023 1 [facility] - DOS ON OR AFTER 2022 - DUAL ELIGIBLE - HALF-WAY OPTIONS AND ONE CARE (MEDICARE REPLACEMENT/ADV ANTAGE - HMO) Tova Lopez [id number] Tova Lopez 01/12/2024 1 [facility] - DOS ON OR AFTER 2022 - DUAL ELIGIBLE - HALF-WAY OPTIONS AND ONE CARE (MEDICARE REPLACEMENT/ADV ANTAGE - HMO) Tova Lopez [id number] Tova Lopez Notes Date Note Type Note Provider Name and Address Organization Details Recorded Time 11/30/2023 text/html HPI: 78 y.o. female whos PMH include generalized joint pain, intervertebral disc disorder, osteoarthritis, pulmonary emphysema c.o. severe pain which has worsened. Pain Scale 8/10. Member states pain starts at the waist and radiates to both legs. Denies any other symptoms. .................... .................... .................... .................... .................... .................... .................... . [facility] Nurse Triage Notes (Shahida Dietz): Comments: Reviewed no further info needed.Andre Calzada MD [address] [facility],[address], [place], [address], [facility] 11/30/2023 12:33:07 12/11/2023 text/html [facility] Nurse Triage Notes (Marita Gallegos): Reason For Request: Patient has a Spinal Stimulator in her back and it's not working, now has back and leg pain. Chief Complaints: Pain PMH: COPD/Asthma, Heart Disease Allergies: No Known Pain Assessment: Level 10 out of 10 Comments: Patient states she has a spinal stimulator in back. Not helping for pain. States she couldn't stand up straight due to the pain. Pain radiates down bilateral legs. Took an Ibuprofen 30 min ago. Denies any acute injuries. .................... .................... .................... .................... .................... .................... .................... . Coal Yard Supervisor Note From Maribel Winslow: Sent to a call for a pt complaining of back pain. SC8 arrives on scene, pt is alert and oriented, airway is patent. Pt has chronic back pain and has a nerve stimulator that is not working. Pt states pain radiates bilaterally to legs. Pt had an x-ray on Thursday, and is awaiting results and treatment plan. Pt is on Xarelto, and is advised not to take any Nsaids. Pt has Tylenol on hand, but hasn't taken any today. BP:134/80, P:96, RR:18, SpO2:93% RA, T:98.1; Head: unremarkable; Lung sounds: clear bilaterally; Abdomen: soft, non-tender, no distention; Back: unremarkable; Extremities: unremarkable; Skin: pink,warm, dry; [facility] consulted and orders Toradol 15mg as a one time dose. Toradol 15mg IM administered without incident. Pt states she will follow up with surgeon and PCP. Red flags discussed. Pt has no further questions. .................... .................... .................... .................... .................... .................... .................... . Disposition: Fulfilled Edd Cat MD [address] [place] [address],[address], [place], [address], [employer] 12/11/2023 22:18:20 12/13/2023 text/html [facility] Nurse Triage Notes (Maria Guadalupe Ayala): Reason For Request: Patient has hip and right side body pain. Chief Complaints: Pain PMH: COPD/Asthma, Heart Disease Allergies: No Known Comments: Member calling in to place a referral, identified via name and . Member chronic back pain. Member has a spinal cord stimulator, however, it has not been effective. Member saw doctor on Thursday who ordered an xray to assess if a lead has become dislodge, member has not received the results. Member has taken tylenol with no effect. Member denies any recent falls or trauma. Members whole right side is in pain. Member does take xarelto. Member would like to be evaluated for pain control. .................... .................... .................... .................... .................... .................... .................... . Coal Yard Supervisor Note From Franca You: Community Coal Yard Supervisor Dash You SC6 dispatched to a [facility] for a 78 yof C/O back pain. Upon arrival, the pt was bent over in her recliner, obviously in pain. She stated she had multiple spinal fx and bulging/herniated discs, that she was being treated by a Physician at a pain clinic. She stated she had a spinal stimulator surgically implanted a few months ago, but that she did not feel it gave her any relief. She reported increased pain to her Physician, who ordered x-rays, and did not hear anything back for a week. She was reporting increased pain that interfered w/ her walking, sitting, and sleeping. She was using heat, lidocaine, tylenol, and rest w/ no effect. Right paraspinal muscle visibly larger than her left, hard and painful on palpation. Pt reported pain all down her right side. She denied any bowel or bladder incontinence. She denied BUTLER, fever, dizziness, cough, sore throat, CP, SOB, abd pain, N/V/D, or urinary S/S. [facility] consulted; she was instructed to follow up w/ her pain mgmt Physician, and discuss further/alternative tx. The use of ketorolac w/ anticoagulants and their risks were discussed at length; pt verbalized understanding and still requested ketorolac. She was given 15 mg ketorolac IM, and instructed to go to the ED if the pain was unmanagable. Red flags discussed at length. .................... .................... .................... .................... .................... .................... .................... . Disposition: Fulfilled Shawna Watts MD [address] [facility],[address], [place], [address], [facility] 12/13/2023 20:22:42 01/12/2024 text/html [facility] Nurse Triage Notes (Jeannie Snowden): Reason For Request: pain, pt experinecing numbmess in left hand, just had spinal device removed and has no appetite Chief Complaints: Dehydration PMH: COPD/Asthma, Heart Disease Allergies: Unknown Comments: [employer] verified the member's name//address and phone number. Member is a 78 yr old female PMH > chronic back pain > [place] 5-6 yrs ago, sepsis, COPD , stopped smoking last , no home 02 Allergies> She does but unsure, she has a list Member had a spinal stimulator taken out thursday. Member know has oxycodone . The member has not been able to eat. She is unsure if she is nausea but unable to eat. Member feels she has lost weight since Thursday. Her hand has intermittent numbness. Member had stimulator placed for back pain., it was removed as it wasnt helping. Oxycodone is not a new medication, last BM was . Member does have bowel meds but have not taken them. Member has a follow up tomorrow. REcommended to call sx Education provided on the response time and the member was advised to monitor reported s/s and seek emergency treatment if needed .................... .................... .................... .................... .................... .................... .................... . Coal Yard Supervisor Note From Maribel Winslow: Sent to a call for a pt complaining of back pain after recent surgery. SC8 arrives on scene, pt is alert and oriented, airway is patent. Pt states she recently had her spinal stimulator removed. Pt was instructed to stop Clonazepam, and prescribed Oxycodone and Clonidine. Pt states since taking Oxycodone she has had right side headache from forehead to right posterior neck. Pt also states she has been increasingly anxious and agitated, with little/no appetite, and constipated. Pt states her last dose of Oxycodone was last night, and she has been taking Tylenol for pain. Pt states her back pain is minimal. Pt states she took Milk of Magnesia for constipation, and Clonazepam and feels much better. Pt states her appetite is back as well. Pt will follow up with surgeon tomorrow. Pt denies dizziness, cp, sob, n/v/d, abd pain, fever, or loc. BP:108/56, P:77, RR:18, SpO2:94% RA, T:98.5; Head: unremarkable; Lung sounds: clear bilaterally; Abdomen: distended, otherwise benign; Back: dressing covering surgical site; Extremities: unremarkable; Skin: pink, warm, dry; [facility] consulted and pt is advised to discontinue Oxycodone. Pt advised to continue taking Tylenol for pain, and follow up with surgeon tomorrow. Red flags discussed. Pt has no further questions. .................... .................... .................... .................... .................... .................... .................... . Disposition: Fulfilled Morgan Curtis MD [address] [place] [address],[address], [place], [address], [employer] 01/13/2024 07:44:23 OBGyn Episode No OBEpisode recorded.
--- OUTSIDE RECORDS SUMMARY | 2024-06-16 16:54 | XMS_ITS ---
Author Organization [facility] Address [address] [place] [address] Care Team Providers Care Curtain Worker Name Role Phone Migration, Provider Unavailable [phone] REASON FOR VISIT [facility] Encounters Encounter Location Date Provider Diagnosis [address] [address] 05/16/2023 Provider Migration Plan Of Treatment No Information Progress Notes * DEVIKAMARRY CazaresDOB:1945 (79 yo F)Acc No.[id number]:05/16/2023 Patient:?MARRY HYATT :1945???Age:78 Y???Sex:Female Address:[place] [address], [address] Subjective: * Chief Complaints: * ???[facility] * Medical History:? * Surgical History:? * Hospitalization/Major Diagno stic Procedure:? * Medications:? Objective: * Vitals:? * Physical Examination:? Assessment: Plan: * Treatment: * Procedure Codes:? * * Date:?
--- OUTSIDE RECORDS SUMMARY | 2024-06-16 16:54 | XMS_ITS | Patient Health Record ---
Author Organization [facility] Address [address] [place] [address] Support Name Relationship Address Phone MARRY HYATT Guarantor Unknown [phone] Reason For Referral No Information Plan Of Treatment No Information
--- OUTSIDE RECORDS SUMMARY | 2024-06-16 16:54 | XMS_ITS ---
Author Organization [facility] Address [address] [place] [address] Care Team Providers Care Sample Distributor Name Role Phone Migration, Provider Unavailable [phone] REASON FOR VISIT [facility] Medications Medication SIG (Take, Route, Fr equency, Duration) Notes Start Date End Date Status Eliquis 5 MG TAKE 1 TABLET TWICE A DAY Oral Eliquis 201605/24/2017 Active Encounters Encounter Location Date Provider Diagnosis [address] [address] 05/17/2023 Provider Migration Plan Of Treatment No Information Progress Notes * MARRY HYATTDOB:1945 (79 yo F)Acc No.[id number]:05/17/2023 Patient:?MARRY HYATT :1945???Age:78 Y???Sex:Female Address:[place], [address] Subjective: * Chief Complaints: * ???[facility] * Medical History:? * Surgical History:? * Hospitalization/Major Diagno stic Procedure:? * Medications:?TakingEliquis 5 MG Tablet TAKE 1 TABLET TWICE A DAY Oral , stop date 05/24/2017, Notes to Pharmacist: Kai Eliquis 5 MG Tablet TAKE 1 TABLET TWICE A DAY Oral , stop date 05/24/2017, Notes to Pharmacist: [place] Objective: * Vitals:? * Physical Examination:? Assessment: Plan: * Treatment: * Procedure Codes:? * * Date:?
--- OUTSIDE RECORDS SUMMARY | 2024-06-16 16:55 | XMS_ITS | Data Portability ---
Author Organization [facility] Address [address] [place] [address] Care Team Providers Care Hydropulper Name Role Phone RICKY WATERS Primary Care Provider ALFONZO STEVENSON Marketing Communications Assistant Assessment Encounter Date Assessment Date Assessment LastModified by Organization Details LastModified Time 05/02/2020 05/02/2020 Tova Lopez is a 75 year old woman with low back pain radiating into the both lower extremities. MRI Lumbar spine shows multilevel degenerative changes are present.At L5-S1, disc degeneration disc bulging with superimposed central disc protrusion. There is also right foraminal disc protrusion. Mild ligamentum flavum thickening. Mild narrowing of the central canal. Moderate right and mild left neural foraminal narrowing. She had physical therapy in the past with no pain benefit. Repeat Lumbar epidural steroid injections at L5-S1 level under fluoroscopic guidance was recommended. The risks and benefits of the procedure were discussed in detail. She wishes to proceed. An appointment will be booked after insurance approval. She needs a chair car driver on the day of the procedure. She is on Xarelto and needs to stop the medication three days prior to the injection per anticoagulation guidelines. Her margin analyst states she can stop the medication for the above procedure. [email or web address] Not available 05/02/2020 09:43:09 06/13/2020 06/13/2020 Tova Lopez is a 75 year old woman with low back pain radiating into the both lower extremities. On exam ,she has pain on flexion. Straight leg raising test is positive bilaterally. MRI Lumbar spine shows multilevel degenerative changes are present.At L5-S1, disc degeneration disc bulging with superimposed central disc protrusion. There is also right foraminal disc protrusion. Mild ligamentum flavum thickening. Mild narrowing of the central canal. Moderate right and mild left neural foraminal narrowing. She had physical therapy in the past with no pain benefit. She is here for a repeat Lumbar epidural steroid injections at L5-S1 level under fluoroscopic guidance . The risks and benefits of the procedure were discussed in detail. She wishes to proceed. She is on Xarelto and She can restart Xarelto tomorrow. She will follow up in eight weeks. [email or web address] Not available 06/13/2020 10:04:18 08/02/2020 08/02/2020 Tova Lopez is a 75 year old woman with low back pain radiating into the both lower extremities. MRI Lumbar spine shows multilevel degenerative changes are present.At L5-S1, disc degeneration disc bulging with superimposed central disc protrusion. There is also right foraminal disc protrusion. Mild ligamentum flavum thickening. Mild narrowing of the central canal. Moderate right and mild left neural foraminal narrowing. She had physical therapy in the past with no pain benefit. Repeat Lumbar epidural steroid injections at L5-S1 level under fluoroscopic guidance was recommended. The risks and benefits of the procedure were discussed in detail. She wishes to proceed. An appointment will be booked after insurance approval. She needs a chair car driver on the day of the procedure. She is on Xarelto and needs to stop the medication three days prior to the injection per anticoagulation guidelines. Her margin analyst states she can stop the medication for the above procedure. [email or web address] Not available 08/02/2020 14:07:24 09/12/2020 09/12/2020 Tova Lopez is a 75 year old woman with low back pain radiating into the both lower extremities. On exam ,she has pain on flexion. Straight leg raising test is positive bilaterally. MRI Lumbar spine shows multilevel degenerative changes are present.At L5-S1, disc degeneration disc bulging with superimposed central disc protrusion. There is also right foraminal disc protrusion. Mild ligamentum flavum thickening. Mild narrowing of the central canal. Moderate right and mild left neural foraminal narrowing. She had physical therapy in the past with no pain benefit. She is here for a repeat Lumbar epidural steroid injections at L5-S1 level under fluoroscopic guidance . The risks and benefits of the procedure were discussed in detail. She wishes to proceed. She is on Xarelto and She can restart Xarelto tomorrow. She will follow up in eight weeks. [email or web address] Not available 09/12/2020 16:05:20 11/09/2020 11/09/2020 Tova Lopez is a 75 year old woman with low back pain radiating into the both lower extremities. MRI Lumbar spine shows multilevel degenerative changes are present.At L5-S1, disc degeneration disc bulging with superimposed central disc protrusion. There is also right foraminal disc protrusion. Mild ligamentum flavum thickening. Mild narrowing of the central canal. Moderate right and mild left neural foraminal narrowing. She had physical therapy in the past with no pain benefit. She has had a recent fall and has worsening low back pain. She will call after vertebroplasty for further follow up. [email or web address] Not available 11/14/2020 11:31:13 Plan of Treatment Reminders Order Date Submit Date Provider Last Modified By Organization Details Last Modified Time Details Appointments None record ed. Lab None record ed. Referral None record ed. Procedures None record ed. Surgeries None record ed. Imaging None record ed. Medication Orders None record ed. Patient TargetsNo targets recorded. Patient Instructions Encounter Date Encounter Id Patient Instructions Last Modified By Organization Details Last Modified Time 05/02/2020 [id number] She was advised to continue with activities as tolerated and benefits of smoking cessation were reviewed with her. Telehealth visit: The patient was located at home for this telephone electronic visit and gave consent for this visit to be conducted via telehealth. 15 minutes was spent on this call and greater than 50% of the visit was spent on counseling and coordination of care. [email or web address] Not available 05/02/2020 09:45:02 06/13/2020 [id number] She was advised to continue with activities as tolerated and benefits of smoking cessation were reviewed with her. [email or web address] Not available 06/13/2020 10:02:50 08/02/2020 [id number] She was advised to continue with activities as tolerated and benefits of smoking cessation were reviewed with her. Telehealth visit: The patient was located at home for this telephone electronic visit and gave consent for this visit to be conducted via telehealth. 15 minutes was spent on this call and greater than 50% of the visit was spent on counseling and coordination of care. [email or web address] Not available 08/02/2020 14:07:27 09/12/2020 [id number] She was advised to continue with activities as tolerated and benefits of smoking cessation were reviewed with her. [email or web address] Not available 09/12/2020 16:05:23 11/09/2020 [id number] She was advised to continue with activities as tolerated and benefits of smoking cessation were reviewed with her. Telehealth visit: The patient was located at home for this telephone electronic visit and gave consent for this visit to be conducted via telehealth. 15 minutes was spent on this call and greater than 50% of the visit was spent on counseling and coordination of care. [email or web address] Not available 11/14/2020 11:30:20 Reason for Referral None Reported. Results Created Date Observation Date Name Description Value Unit Range Abnormal Flag Note LastModifiedBy Organization Detail LastModifiedTime 11/14/19 21 10/19/2020 XR, lumba r spine No observ ation record ed. eron [facility] [address] [place], [address], 11/14/2020 11:33:18 Result Notes None recorded. Problems Name Problem SNOMED Code Status Onset Date Resolution Date Notes Provider Name and Address Organization Details Recorded Time Lumbosacral spondylosis without myelopathy [id number] Chidi mas MD [address] [facility] , [address], [place], [address], [place] [facility] 6 18:39:02 Displacement of lumbar intervertebral disc without myelopathy [id number] Chidi mas MD [address] , [address], [place], [address], [place] [facility] 6 18:39:03 Enthesopathy of hip region [id number] Chidi mas MD [address] , [address], [place], [address], [place] [facility] 6 18:39:03 Compression fracture of vertebral column [id number] Chidi mas MD [address] , [address], [place], [address], [place] [facility] 6 18:29:06 Postherpetic neuralgia [id number] Active Nani mas MD [address] , [address], [place], [address], [place] [facility] 8 16:02:07 Lumbosacral radiculitis 56398041 Active Nani mas MD [address] , [address], [place], [address], [place] [facility] 6 18:29:06 Problem Notes None recorded. Procedures Surgical History Date Name Laterality Status Provider Name and Address Organization Details Recorded Time 09/13/19 21 Lumbar Epidural steroid injection under fluoroscopic guidance completed Nani Baker MD [address] , [address], [place], [address], [place] [facility] 09/12/2020 16:06:14 06/13/19 21 Lumbar Epidural steroid injection under fluoroscopic guidance completed Nani Baker MD [address] , [address], [facility] [place], [address], [place] [facility] 06/13/2020 10:03:35 03/13/20 20 Lumbar Epidural steroid injection under fluoroscopic guidance completed Nani Baker MD [address] , [address], [place], [address], [place] [facility] 03/13/2020 15:36:36 10/25/19 20 Lumbar Epidural steroid injection under fluoroscopic guidance completed Nani Baker MD [address] , [address], [place], [address], [place] [facility] 10/27/2019 09:47:43 06/29/19 20 Lumbar Epidural steroid injection under fluoroscopic guidance completed Nani Baker MD [address] , [address], [place], [address], [place] [facility] 06/29/2019 13:58:52 03/16/20 19 Lumbar Epidural steroid injection under fluoroscopic guidance completed Nani Baker MD [address] , [address], [place], [address], [place] [facility] 03/18/2019 15:32:17 05/19/20 18 Lumbar Epidural steroid injection under fluoroscopic guidance completed Nani Baker MD [address] , [address], [place], [address], [place] [facility] 05/19/2018 15:37:32 04/20/20 18 Greater Trochanteric Bursa Steroid Injection completed Nani Baker MD [address] , [address], [place], [address], [place] [facility] 04/20/2018 14:17:28 04/07/20 18 Greater Trochanteric Bursa Steroid Injection completed Nani Baker MD [address] , [address], [place], [address], [place] [facility] 04/07/2018 13:33:14 01/27/20 18 Greater Trochanteric Bursa Steroid Injection completed Nani Baker MD [address] , [address], [place], [address], [place] [facility] 01/28/2018 08:59:37 11/26/19 18 Fluoroscopic Guided Lumbar Facet Steroid Injections of levels completed Nani Baker MD [address] , [address], [place], [address], [place] [facility] 11/26/2017 10:21:29 10/08/19 18 Lumbar Epidural steroid injection under fluoroscopic guidance completed Nani Baker MD [address] , [address], [place], [address], [place] [facility] 10/07/2017 13:42:01 05/19/20 17 Greater Trochanteric Bursa Steroid Injection completed Nani Baker MD [address] , [address], [place], [address], [place] [facility] 05/21/2017 11:06:00 03/17/20 17 Lumbar Epidural steroid injection under fluoroscopic guidance completed Nani Baker MD [address] , [address], [place], [address], [place] [facility] 03/17/2017 13:42:48 04/06/20 14 Lumbar Epidural steroid injection under fluoroscopic guidance completed Nani Baker MD [address] , [address], [place], [address], [place] [facility] 04/06/2014 15:46:14 01/20/20 14 Radiofrequency of Lumbar/Sacral medial branches supplying the facets under fluoroscopic guidance completed Nani Baker MD [address] , [address], [place], [address], [place] [facility] 01/20/2014 11:09:57 12/27/19 14 Radiofrequency of Lumbar/Sacral medial branches supplying the facets under fluoroscopic guidance completed Nani Baker MD [address] , [address], [place], [address], [place] [facility] 12/28/2013 11:18:21 11/08/19 14 Fluoroscopic Guided Lumbar Facet Steroid Injections of levels completed Nani Baker MD [address] , [address], [place], [address], [place] [facility] 11/08/2013 15:17:09 10/25/19 14 Fluoroscopic Guided Lumbar Facet Steroid Injections of levels completed Nani Baker MD [address] , [address], [place], [address], [place] [facility] 10/27/2013 09:17:13 08/01/19 14 Lumbar Epidural steroid injection under fluoroscopic guidance completed Nani Baker MD [address] , [address], [place], [address], [place] [facility] 08/01/2013 14:24:11 04/05/20 13 Fluoroscopic Guided Lumbar Facet Steroid Injections of levels completed Nani Baker MD [address] , [address], [place], [address], [place] [facility] 04/06/2013 09:16:32 03/23/20 13 Fluoroscopic Guided Lumbar Facet Steroid Injections of levels completed Nani Baker MD [address] , [address], [place], [address], [place] [facility] 03/25/2013 11:35:45 01/25/20 13 Lumbar Epidural steroid injection under fluoroscopic guidance completed Nani Baker MD [address] , [address], [place], [address], [place] [facility] 01/24/2013 16:24:03 10/19/19 13 Lumbar Epidural steroid injection under fluoroscopic guidance completed Nani Baker MD [address] , [address], [place], [address], [place] [facility] 10/19/2012 09:47:49 Other completed Nani Baker MD [address] , [address], [place], [address], [place] [facility] 11/08/2013 15:15:18 Tubal Ligation completed Armidathierno Hubbard [place] [facility] 08/05/2012 14:22:46 Hysterectomy completed Armidathierno Hubbard [place] [facility] 08/05/2012 14:25:50 Other completed Armidathierno Hubbard [place] [facility] 08/05/2012 14:22:46 Other completed Armida Hubbard [place] [facility] 08/05/2012 14:25:50 Arthroscopic Surgery completed Armidathierno DarbyHubbard [place] [facility] 08/05/2012 14:25:50 Imaging Results Imaging Date Name Status LastModified by Organiz ation Details LastModified Time 10/19/2020 XR, lumbar spine completed [id number] [place], [address], 11/14/2020 11:33:18 Procedure Notes None recorded. Medical Equipment None Reported. Allergies Allergen ID Allergen Name Allergen Category Reaction Reaction Severity Criticality Documentation Date Start Date Code Code System Note Provider Name and Address Organization Details Recorded Time 19180 naproxen medicatio n Not available Not available Not available 02/23/2017 7258 RxNorm Armida mckeon, [place] [facility] 7 15:04:34 26256 clonidine medicatio n Not available Not available Not available 02/23/2017 2599 RxNorm Armida mckeon, [place] [facility] 7 15:04:42 04906 Wellbutri n medicatio n Not available Not available Not available 02/23/2017 04980 RxNorm Armida mckeon, [place] [facility] 7 15:05:01 69299 mirtazapi ne medicatio n Not available Not available Not available 02/23/2017 04005 RxNorm Armida mckeon, [place] [facility] 7 15:05:39 4741 Remeron medicatio n Not available Not available Not available 08/05/2012 73121 4 RxNorm Armida mckoen, [place] [facility] 3 14:22:46 4742 morphine medicatio n respirato ry distress Not available Not available 08/05/2012 7052 RxNorm Armida mckeon, [place] [facility] 4 10:46:06 5361 sulindac medicatio n arthralgi a (joint pain) Not available Not available 10/18/2012 21957 RxNorm Armida mckeon, [place] [facility] 3 14:30:10 6541 tramadol medicatio n headache Not available Not available 02/24/2013 60884 RxNorm Nani mas MD [facility] [address], [facility] [place], [address] [facility] [place] [facility] 9 10:01:55 9401 Lyrica medicatio n headache Not available Not available 03/29/2014 34215 1 RxNorm Armida mckeon, [place] [facility] 4 10:48:03 Medications Name Sig Start Date Stop Date Status Note LastModified by Organization Details LastModified Time Prescriptio n - Prior Authorizati on Request 04/07 completed Not Available Not Available Not Available carisoprodo l 350 mg tablet TAKE 1 TABLET THREE TIMES A DAY 12/04 completed Not Available Not Available Not Available quetiapine 25 mg tablet active Not Available Not Available Not Available amoxicillin 500 mg capsule 02/18 completed Not Available Not Available Not Available fluconazole 100 mg tablet 12/04 completed Not Available Not Available Not Available atorvastati n 40 mg tablet TAKE 1 TABLET BY MOUTH EVERY DAY active Not Available Not Available No t Available Qvar 80 mcg/actuati on Metered Aerosol oral inhaler INHALE 1 PUFF BY MOUTH TWICE A DAY active Not Available Not Available No t Available nystatin 100,000 unit/mL oral suspension 03/16 completed Not Available Not Available Not Available clonidine HCl 0.1 mg tablet active Not Available Not Available Not Available prednisone 10 mg tablet TAKE 4 TABLET ONCE A DAY ORALLY 05/02 completed Not Available Not Available Not Available doxycycline hyclate 100 mg capsule TAKE 1 CAPSULE BY MOUTH TWICE A DAY WITH FOOD FOR 7 DAYS 06/13 completed Not Available Not Available Not Available atorvastati n 20 mg tablet TAKE 1 TABLET BY MOUTH EVERY DAY 10/07 completed Not Available Not Available Not Available naproxen 375 mg tablet TAKE 1 TABLET EVERY DAY NEEDED 12/04 completed Not Available Not Available Not Available nicotine 14 mg/24 hr daily transdermal patch APPLY 1 PATCH TO SKIN ONCE DAILY 02/23 completed Not Available Not Available Not Available B Complex 1 tablet TAKE 1 TABLET EVERY DAY 05/02 completed Not Available Not Available Not Available albuterol sulfate 2.5 mg/3 mL (0.083 %) solution for nebulizatio n INHALE I STEFFANIE 4 TIMES A DAY FOUR TIMES A DAY NEEDED . DX: J44.9, J45.909, J44.1 active Not Available Not Available No t Available trazodone 50 mg tablet active Not Available Not Available Not Available cetirizine 10 mg tablet TAKE 1 TABLET BY MOUTH EVERY DAY active Not Available Not Available No t Available azithromyci n 250 mg tablet TAKE 2 TABLETS BY MOUTH TODAY, THEN TAKE 1 TABLET DAILY FOR 4 DAYS 11/09 completed Not Available Not Available Not Available pravastatin 40 mg tablet TAKE 1 TABLET BY MOUTH EVERY DAY 02/23 completed Not Available Not Available Not Available ibuprofen 800 mg tablet active Not Available Not Available Not Available diltiazem CD 180 mg capsule,ext ended release 24 hr 11/09 completed Not Available Not Available Not Available fluconazole 150 mg tablet 03/31 completed Not Available Not Available Not Available amiodarone 200 mg tablet TAKE 1 TABLET EVERY DAY 02/07 completed Not Available Not Available Not Available clarithromy yared 500 mg tablet active Not Available Not Available Not Available hydrocodone 5 mg-acetamin ophen 325 mg tablet TAKE 1 2 TABLETS BY MOUTH THREE TIMES A DAY FOR 3 DAYS NEEDED FOR PAIN active Not Available Not Available No t Available prednisone 20 mg tablet TAKE 3 TABS X2DAYS, 2 TABS X3DAYS, 1 TAB X3DAYS THEN 1/2 TAB X4DAYS 11/09 completed Not Available Not Available Not Available clonazepam 0.5 mg tablet TAKE 1 TABLET UP TO THREE TIMES PER DAY NEEDED FOR ANXIETY. active Not Available Not Available No t Available verapamil ER (SR) 180 mg tablet,exte nded release 02/18 completed Not Available Not Available Not Available permethrin 5 % topical cream 12/04 completed Not Available Not Available Not Available sumatriptan 50 mg tablet TAKE 1 TABLET NEEDED ONE TIME ONCE A DAY 12/04 completed Not Available Not Available Not Available sulindac 150 mg tablet active Not Available Not Available Not Available topiramate 25 mg tablet active Not Available Not Available Not Available acetaminoph en 300 mg-codeine 15 mg tablet 05/19 completed Not Available Not Available Not Available metronidazo le 500 mg tablet 11/09 completed Not Available Not Available Not Available acetaminoph en 300 mg-codeine 30 mg tablet 05/02 completed Not Available Not Available Not Available ciprofloxac in 250 mg tablet TAKE 1 TABLET BY MOUTH TWICE A DAY FOR 3 DAYS active Not Available Not Available No t Available trimethopri m 100 mg tablet active Not Available Not Available Not Available ciprofloxac in 500 mg tablet active Not Available Not Available Not Available sulfamethox azole 800 mg-trimetho prim 160 mg tablet TAKE 1 TABLET BY MOUTH TWICE A DAY 11/09 completed Not Available Not Available Not Available quetiapine 100 mg tablet active Not Available Not Available Not Available butalbital- acetaminoph en-caffeine 50 mg-325 mg-40 mg tablet TAKE 1-2 TABLETS ON ONSET OF HEADACHE DIRECTED BY MD *MUST LAST 30DAYS* 02/18 completed Not Available Not Available Not Available Serevent Diskus 50 mcg/dose powder for inhalation INHALE 1 PUFF BY MOUTH TWICE A DAY 02/07 completed Not Available Not Available Not Available oxycodone-a cetaminophe n 5 mg-325 mg tablet TAKE 1 TABLET BY MOUTH EVERY 6 HOURS 05/19 completed Not Available Not Available Not Available clonidine HCl 0.2 mg tablet active Not Available Not Available Not Available famotidine 20 mg tablet TAKE 1 TABLET AT BEDTIME 02/07 completed Not Available Not Available Not Available amitriptyli ne 25 mg tablet active Not Available Not Available Not Available magnesium oxide 400 mg (241.3 mg magnesium) tablet TAKE 1 OR 2 TABS NEEDED ONCE A DAY AT BEDTIME ORALLY 30 DAY(S) 06/29 completed Not Available Not Available Not Available lorazepam 0.5 mg tablet active Not Available Not Available Not Available tamsulosin 0.4 mg capsule active Not Available Not Available Not Available trazodone 100 mg tablet TAKE 1 TABLET AT BEDTIME NEEDED active Not Available Not Available No t Available temazepam 30 mg capsule active Not Available Not Available Not Available meclizine 25 mg tablet TAKE 1 TABLET EVERY DAY NEEDED 02/18 completed Not Available Not Available Not Available sulfacetami de sodium 10 % eye drops active Not Available Not Available Not Available baclofen 10 mg tablet 02/18 completed Not Available Not Available Not Available benzonatate 100 mg capsule TAKE ONE CAPSULE BY MOUTH EVERY 6 HOURS NEEDED FOR COUGH active Not Available Not Available No t Available paroxetine 20 mg tablet active Not Available Not Available Not Available venlafaxine 37.5 mg tablet 02/07 completed Not Available Not Available Not Available trazodone 150 mg tablet TAKE 1 TABLET BY MOUTH ONCE A DAY, AT BEDTIME NEEDED FOR INSOMNIA. active Not Available Not Available No t Available ferrous sulfate 325 mg (65 mg iron) tablet active Not Available Not Available Not Available nitrofurant oin macrocrysta l 100 mg capsule active Not Available Not Available Not Available nystatin 100,000 unit/gram topical cream active Not Available Not Available Not Available lidocaine 5 % topical patch APPLY 1 PATCH BY TRANSDERM AL ROUTE ONCE DAILY (MAY WEAR UP TO 12HOURS.) active Not Available Not Available No t Available polymyxin B sulfate 10,000 unit-trimet hoprim 1 mg/mL eye drops USE 1 DROP IN AFFECTED EYE SIX TIMES A DAY FOR 7 DAYS 02/23 completed Not Available Not Available Not Available Advair Diskus 250 mcg-50 mcg/dose powder for inhalation active Not Available Not Available N ot Available indomethaci n 50 mg capsule TAKE 1 CAPSULE WITH FOOD OR MILK TWICE A DAY ORALLY 10 DAYS 02/07 completed Not Available Not Available Not Available nicotine 21 mg/24 hr daily transdermal patch APPLY 1 PATCH TOPICALLY ONCE A DAY 03/13 completed Not Available Not Available Not Available docusate sodium 100 mg capsule TAKE ONE CAPSULE EVERY DAY NEEDED active Not Available Not Available No t Available omeprazole 20 mg capsule,del ayed release 12/04 completed Not Available Not Available Not Available diltiazem CD 120 mg capsule,ext ended release 24 hr TAKE ONE CAPSULE BY MOUTH EVERY DAY 02/07 completed Not Available Not Available Not Available ammonium lactate 12 % topical cream APPLY AM AND PM TO THE BODY THROUGHOU T active Not Available Not Available No t Available cyanocobala min (vit B-12) 1,[address] 1 TABLET UNDER THE TONGUE AND ALLOW TO DISSOLVE ONCE DAILY active Not Available Not Available No t Available pravastatin 20 mg tablet active Not Available Not Available Not Available mupirocin 2 % topical ointment 03/16 completed Not Available Not Available Not Available mirtazapine 15 mg tablet active Not Available Not Available Not Available ibuprofen 600 mg tablet active Not Available Not Available Not Available levofloxaci n 750 mg tablet 11/09 completed Not Available Not Available Not Available methylpredn isolone 4 mg tablets in a dose pack TAKE 6 TABLETS ON DAY 1 DIRECTED ON PACKAGE AND DECREASE BY 1 TAB EACH DAY FOR A TOTAL OF 6 DAYS 11/25 completed Not Available Not Available Not Available albuterol sulfate HFA 90 mcg/actuati on aerosol inhaler INHALE 2 PUFFS BY MOUTH EVERY 6 HOURS NEEDED active Not Available Not Available No t Available ipratropium bromide 42 mcg (0.06 %) nasal spray INHALE 2 DROPS IN EACH NOSTRIL 3 TIMES DAILY 12/04 completed Not Available Not Available Not Available fluticasone propionate 50 mcg/actuati on nasal spray,suspe nsion active Not Available Not Available Not Available sertraline 50 mg tablet active Not Available Not Available Not Available doxycycline hyclate 100 mg tablet active Not Available Not Available No t Available loratadine 10 mg tablet TAKE 1 TABLET EVERY DAY active Not Available Not Available No t Available diazepam 5 mg tablet active Not Available Not Available No t Available amoxicillin 875 mg-potassiu m clavulanate 125 mg tablet active Not Available Not Available Not Available oxycodone 5 mg tablet TAKE 1 TABLET BY MOUTH EVERY 6 HOURS NEEDED FOR PAIN *DO NOT DRIVE WHILE TAKING THIS MEDICATIO N* active Not Available Not Available No t Available paroxetine ER 12.5 mg tablet,exte nded release 24 hr active Not Available Not Available Not Available Oysco-500 500 mg (as calcium carboante 1,250 mg) tablet TAKE 1 TABLET BY MOUTH ONCE DAILY. WITH MEALS 02/07 completed Not Available Not Available Not Available divalproex ER 250 mg tablet,exte nded release 24 hr TAKE 1 TABLET BY MOUTH AT BEDTIME active Not Available Not Available No t Available Vitamin D3 25 mcg (1,000 unit) tablet active Not Available Not Available Not Available Spiriva with HandiHaler 18 mcg and inhalation capsules TAKE 1 CAPSULE ONCE A DAY 04/27 completed Not Available Not Available Not Available Motion Sickness Relief (meclizine) 25 mg chewable tablet TAKE 1 TABLET BY MOUTH EVERY DAY NEEDED active Not Available Not Available No t Available nitrofurant oin monohydrate /macrocryst als 100 mg capsule TAKE 1 CAPSULE BY MOUTH TWICE A DAY 11/09 completed Not Available Not Available Not Available temazepam 22.5 mg capsule active Not Available Not Available Not Available Flovent HFA 110 mcg/actuati on aerosol inhaler TAKE 1 PUFF INHALATIO N TWICE DAILY 30 DAYS active Not Available Not Available No t Available Chest Congestion Relief 400 mg tablet TAKE 1 TABLET BY MOUTH NEEDED EVERY 4 HOURS FOR 10 DAYS 06/29 completed Not Available Not Available Not Available Lyrica 75 mg capsule TAKE 1 CAPSULE BY MOUTH TWICE A DAY FOR 14 DAYS active Not Available Not Available No t Available Vitamins B Complex 06/30 completed Not Available Not Available Not Available quetiapine 50 mg tablet active Not Available Not Available Not Available Symbicort 160 mcg-4.5 mcg/actuati on HFA aerosol inhaler INHALE 2 PUFFS BY MOUTH TWICE A DAY 06/30 completed Not Available Not Available Not Available diclofenac 1 % topical gel Apply 2 g 3 times a day by topical route for 30 days. active Not Available Not Available No t Available cholecalcif ousmane (vitamin D3) 50 mcg (2,000 unit) capsule TAKE 1 CAPSULE BY MOUTH ONCE DAILY active Not Available Not Available No t Available Prevnar 13 (PF) 0.5 mL intramuscul ar syringe TO BE ADMINISTE RED BY PHARMACIS T FOR IMMUNIZAT ION 03/22 completed Not Available Not Available Not Available butalbital- acetaminoph en-caffeine 50 mg-300 mg-40 mg capsule TAKE 1 TO 2 CAPSULES BY MOUTH DAILY NEEDED FOR HEADACHE active Not Available Not Available No t Available Xarelto 20 mg tablet TAKE 1 TABLET BY MOUTH EVERY DAY active Not Available Not Available No t Available Vicodin 5 mg-300 mg tablet Take 1 tablet every 4 hours by oral route. active Not Available Not Available No t Available Eliquis 5 mg tablet TAKE 1 TABLET TWICE A DAY 11/09 completed Not Available Not Available Not Available Afluria 8518-9308(P F) 45 mcg (15 mcg x 3)/0.5 mL intramuscul ar syringe TO BE ADMINISTE RED BY PHARMACIS T FOR IMMUNIZAT ION active Not Available Not Available No t Available Fluzone High-Dose (PF) 180 mcg/0.5 mL intramuscul ar syringe TO BE ADMINISTE RED BY PHARMACIS T FOR IMMUNIZAT ION active Not Available Not Available No t Available colchicine 0.6 mg capsule 02/07 completed Not Available Not Available Not Available Incruse Ellipta 62.5 mcg/actuati on powder for inhalation INHALE 1 PUFF BY MOUTH DAILY 02/18 completed Not Available Not Available Not Available Fluzone High-Dose (PF) 180 mcg/0.5 mL intramuscul ar syringe TO BE ADMINISTE RED BY PHARMACIS T FOR IMMUNIZAT ION 04/24 completed Not Available Not Available Not Available Readi-Cat 2 2 % (w/v) oral suspension USE DIRECTED 03/16 completed Not Available Not Available Not Available Fluzone High-Dose (PF) 180 mcg/0.5 mL intramuscul ar syringe TO BE ADMINISTE RED BY PHARMACIS T FOR IMMUNIZAT ION 03/22 completed Not Available Not Available Not Available Flucelvax Quad (PF) 60 mcg (15 mcg x 4)/0.5 mL IM syringe 02/07 completed Not Available Not Available Not Available Tiadylt ER 120 mg capsule,ext ended release TAKE 1 CAPSULE BY MOUTH EVERY DAY active Not Available Not Available No t Available Fluzone High-Dose Quad (PF) 240 mcg/0.7 mL IM syringe PHARMACY ADMINISTE RED 05/02 completed Not Available Not Available Not Available Vitals Date Recorded Body height Heart rate Oxygen saturation Oxygen saturation in Arterial blood by Pulse oximetry Systolic blood pressure Diastolic blood pressure Provider Name and Address Organization Details Last Updated DateTime 1 154.94 cm 97 /min 96 % 96 % 149 mm[Hg] 75 mm[Hg] Katie Saleswell [facility] - [facility] 1 09:36:50 Date Recorded Body height Heart rate Oxygen saturation Oxygen saturation in Arterial blood by Pulse oximetry Systolic blood pressure Diastolic blood pressure Provider Name and Address Organization Details Last Updated DateTime 1 154.94 cm 93 /min 96 % 96 % 142 mm[Hg] 100 mm[Hg] Katie Saleswell KARI - [facility] 1 11:00:08 Social History Question Answer Notes LastModified by [facility] Details LastModified Time Tobacco Smoking Status Former Smoker She is on a nicotine patch and states she has quit. Not Available [facility] 03/23/2020 03:16:11 What Is Your Level Of Alcohol Consumption? None [id number] Information not available 03/23/2020 Are You Currently Employed? Yes Disabled [id number] Information not available 03/23/2020 Which Illicit Or Recreational Drugs Have You Used? Marijuana [id number] Information not available 03/23/2020 Education 12 Information no t available 08/05/2012 Live Alone Or With Others? With Others Nephew Information not available 08/05/2012 Marital Status Informatio n not available 08/05/2012 What Was The Date Of Your Most Recent Tobacco Screening? 06/30/2018 [id number] Information not available 03/23/2020 How Much Tobacco Do You Smoke? 0.5 PPD [id number] Information not available 03/23/2020 Sex: Unknown Functional Status None recorded. Mental Status None recorded. Family History Nothing Reported. Medical History Condition Response Anxiety Disorder Y Diabetes Y Coronary Artery Disease Y Hepatitis C Y Arthritis Y High Cholesterol Y Cancer Y COPD Y Asthma Y Osteoporosis Y Gynecological HistoryNo gynecological history recorded. Obstetrics History GPAL:G 0 P 0 0 0 0 Past Encounters Encounter ID Performer Location Encounter Start Date Encounter Closed Date Diagnosis/Indication Diagnosis SNOMED-CT Code Diagnosis ICD10 Code Diagnosis Note [id number] Nani Baker MD PAIN OFFICE [address] [facility] [address] [facility] [place] [address] 08/05/2012 13:21:37 08/05/2012 15:33:38 [id number] Nani Baker MD [facility] [address] [place] [address] 10/18/2012 14:16:54 10/18/2012 15:51:29 [id number] [facility] [address] [place] [address] 11/18/2012 10:11:02 11/18/2012 15:37:35 [id number] [facility] [address] [place] [address] 01/24/2013 13:25:53 01/24/2013 16:24:59 [id number] [facility] [address] [place] [address] 02/24/2013 10:57:59 02/25/2013 09:00:54 [id number] Nani Baker MD [facility] [address] [place] [address] 03/23/2013 13:53:07 03/23/2013 15:41:57 Lumbosacral spondylosis without myelopathy 44175294 Displaceme nt of lumbar intervertebral disc without myelopathy 93404646 [id number] [facility] [address] [place] [address] 04/05/2013 12:57:19 04/05/2013 15:43:47 Lumbosacral spondylosis without myelopathy 28735583 Displaceme nt of lumbar intervertebral disc without myelopathy 32418711 Lumbosacra l radiculitis 60722646 [id number] [facility] [address] [place] [address] 05/04/2013 10:54:36 05/04/2013 15:05:24 Lumbosacral spondylosis without myelopathy 62914046 Displaceme nt of lumbar intervertebral disc without myelopathy 50237018 Lumbosacra l radiculitis 98711887 [id number] [facility] [address] [place] [address] 07/27/2013 09:43:56 07/27/2013 11:42:54 Lumbosacral spondylosis without myelopathy 14394614 Displaceme nt of lumbar intervertebral disc without myelopathy 82662431 Lumbosacra l radiculitis 96413433 [id number] [facility] [address] [place] [address] 08/01/2013 13:26:06 08/02/2013 10:33:30 Lumbosacral spondylosis without myelopathy 45154389 Displaceme nt of lumbar intervertebral disc without myelopathy 28536714 Lumbosacra l radiculitis 19512214 [id number] [facility] [address] [facility] [place] [address] 08/30/2013 10:43:35 09/02/2013 09:22:59 Lumbosacral spondylosis without myelopathy 59248470 Displaceme nt of lumbar intervertebral disc without myelopathy 65495493 Lumbosacra l radiculitis 18395756 [id number] [facility] [address] [facility] [place] [address] 10/06/2013 11:00:49 10/07/2013 11:11:22 Lumbosacral spondylosis without myelopathy 93902535 Displaceme nt of lumbar intervertebral disc without myelopathy 45161580 Lumbosacra l radiculitis 77674775 [id number] [facility] [address] [facility] [place] [address] 10/24/2013 13:22:09 10/27/2013 09:18:15 Lumbosacral spondylosis without myelopathy 52892036 Displaceme nt of lumbar intervertebral disc without myelopathy 27348667 Lumbosacra l radiculitis 01792236 [id number] [facility] [address] [facility] [place] [address] 11/07/2013 10:27:07 11/08/2013 14:06:31 Lumbosacral spondylosis without myelopathy 43939191 Displaceme nt of lumbar intervertebral disc without myelopathy 13449532 Lumbosacra l radiculitis 05317043 [id number] [facility] [address] [facility] [place] [address] 11/29/2013 10:00:54 12/03/2013 16:50:45 Lumbosacral spondylosis without myelopathy 02730532 Displaceme nt of lumbar intervertebral disc without myelopathy 95208942 Lumbosacra l radiculitis 34161370 [id number] Armida Hubbard PAIN OFFICE [address] [facility] [place] [address] 12/26/2013 10:21:37 12/27/2013 15:19:55 Lumbosacral spondylosis without myelopathy 57193917 Displaceme nt of lumbar intervertebral disc without myelopathy 11712772 Lumbosacra l radiculitis 55233430 [id number] [facility] [address] [facility] [place] [address] 01/17/2014 13:07:43 01/18/2014 15:46:33 Lumbosacral spondylosis without myelopathy 58380135 Displaceme nt of lumbar intervertebral disc without myelopathy 93802953 Lumbosacra l radiculitis 33143954 [id number] [facility] [address] [facility] [place] [address] 01/19/2014 10:41:36 01/20/2014 11:12:44 Lumbosacral spondylosis without myelopathy 77726099 Displaceme nt of lumbar intervertebral disc without myelopathy 14698091 Lumbosacra l radiculitis 81727834 [id number] [facility] [address] [facility] [place] [address] 02/21/2014 10:49:23 02/21/2014 11:45:38 Lumbosacral spondylosis without myelopathy 93420008 Displaceme nt of lumbar intervertebral disc without myelopathy 67020315 Lumbosacra l radiculitis 46552168 [id number] [facility] [address] [facility] [place] [address] 03/29/2014 10:32:34 03/29/2014 11:28:43 Lumbosacral spondylosis without myelopathy 09201093 Displaceme nt of lumbar intervertebral disc without myelopathy 34927786 Lumbosacra l radiculitis 28590516 [id number] [facility] [address] [facility] [place] [address] 04/06/2014 14:07:44 04/06/2014 15:48:45 Lumbosacral spondylosis without myelopathy 55005482 Displaceme nt of lumbar intervertebral disc without myelopathy 81413042 Lumbosacra l radiculitis 20858643 [id number] [facility] [address] [place] [address] 04/27/2014 13:56:39 04/29/2014 21:26:25 Lumbosacral spondylosis without myelopathy 82620092 Displaceme nt of lumbar intervertebral disc without myelopathy 02001356 Lumbosacra l radiculitis 29416438 [id number] [facility] [address] [place] [address] 05/17/2014 11:13:27 05/17/2014 15:18:53 Lumbosacral spondylosis without myelopathy 68598356 Displaceme nt of lumbar intervertebral disc without myelopathy 13974598 Lumbosacra l radiculitis 63029040 [id number] [facility] [address] [place] [address] 08/10/2014 15:17:32 08/16/2014 10:42:28 Lumbosacral spondylosis without myelopathy 03129947 Displaceme nt of lumbar intervertebral disc without myelopathy 37413189 Lumbosacra l radiculitis 60772187 [id number] [facility] [address] [place] [address] 09/28/2014 14:00:05 10/01/2014 10:50:12 Lumbosacral spondylosis without myelopathy 55774688 Displaceme nt of lumbar intervertebral disc without myelopathy 07537411 Lumbosacra l radiculitis 13086180 Enthesopat hy of hip region 07750568 Compressio n fracture of vertebral column 75962650 [id number] Nani Baker MD PAIN OFFICE [address] [place] [address] 01/04/2016 10:22:33 01/12/2016 18:39:32 Lumbosacral spondylosis without myelopathy 32843200 M47.817 Displaceme nt of lumbar intervertebral disc without myelopathy 61754866 M51.26 Enthesopat hy of hip region 42804573 M76.9 [id number] Nani Baker MD PAIN OFFICE [address] [facility] [place] [address] 12/04/2016 09:35:15 01/11/2017 18:16:46 Lumbosacral spondylosis without myelopathy 89604152 M47.817 Displaceme nt of lumbar intervertebral disc without myelopathy 54823142 M51.26 Enthesopat hy of hip region 64687062 M76.9 [id number] Nani Baker MD [facility] [address] [facility] [place] [address] 02/23/2017 14:52:43 02/25/2017 15:20:57 Displacement of lumbar intervertebral disc without myelopathy 82240293 M51.26 Lumbosacra l radiculitis 63257301 M54.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 36589915 M47.817 [id number] Nani Baker MD PAIN OFFICE [address] [place] [address] 03/17/2017 13:04:51 03/19/2017 11:14:52 Displacement of lumbar intervertebral disc without myelopathy 17709122 M51.26 Lumbosacra l radiculitis 42979856 M54.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 23203135 M47.817 [id number] Nani Baker MD PAIN OFFICE [address] [place] [address] 03/31/2017 09:22:04 04/01/2017 13:37:43 Lumbosacral radiculitis 74575703 M54.17 Displaceme nt of lumbar intervertebral disc without myelopathy 78245978 M51.26 Lumbosacra l spondylosis without myelopathy 88624752 M47.817 [id number] Nani Baker MD PAIN OFFICE [address] [facility] [place] [address] 04/24/2017 08:50:47 04/24/2017 13:41:37 Lumbosacral radiculitis 81803083 M54.17 Displaceme nt of lumbar intervertebral disc without myelopathy 95780873 M51.26 Lumbosacra l spondylosis without myelopathy 93598036 M47.817 [id number] Nani Baker MD PAIN OFFICE [address] [facility] [place] [address] 05/19/2017 14:06:27 05/21/2017 11:21:34 Lumbosacral radiculitis 74104279 M54.17 Displaceme nt of lumbar intervertebral disc without myelopathy 09813636 M51.26 Lumbosacra l spondylosis without myelopathy 57003251 M47.817 [id number] Nani Baker MD PAIN OFFICE [address] [place] [address] 10/07/2017 11:31:45 10/07/2017 14:36:01 Displacement of lumbar intervertebral disc without myelopathy 95352686 M51.26 Lumbosacra l radiculitis 31011362 M54.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 38777723 M47.817 [id number] Nani Baker MD PAIN OFFICE [address] [place] [address] 11/09/2017 15:30:47 11/13/2017 08:33:20 Postherpetic neuralgia 5050084 B02.29 Lumbosacra l radiculitis 76091334 M54.17 Displaceme nt of lumbar intervertebral disc without myelopathy 07595371 M51.26 Lumbosacra l spondylosis without myelopathy 82573448 M47.817 [id number] Nani Baker MD PAIN OFFICE [address] [place] [address] 11/25/2017 10:19:02 11/26/2017 10:26:57 Displacement of lumbar intervertebral disc without myelopathy 49304056 M51.26 Lumbosacra l radiculitis 28626189 M54.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 92492199 M47.817 [id number] Nani Baker MD PAIN OFFICE [address] [place] [address] 01/26/2018 11:15:45 01/28/2018 09:21:50 Displacement of lumbar intervertebral disc without myelopathy 97765648 M51.26 Lumbosacra l radiculitis 97864548 M54.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 23916599 M47.817 [id number] Nani Baker MD PAIN OFFICE [address] [place] [address] 03/22/2018 14:23:54 03/22/2018 16:13:18 Displacement of lumbar intervertebral disc without myelopathy 68681509 M51.26 Lumbosacra l radiculitis 04688444 M54.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 08587833 M47.817 [id number] Nani Baker MD PAIN OFFICE [address] [place] [address] 04/07/2018 11:29:53 04/08/2018 10:07:21 Displacement of lumbar intervertebral disc without myelopathy 95812474 M51.26 Lumbosacra l radiculitis 51317024 M54.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 76204669 M47.817 [id number] Nani Baker MD PAIN OFFICE [address] [place] [address] 04/20/2018 13:09:21 04/20/2018 15:17:00 Displacement of lumbar intervertebral disc without myelopathy 24833643 M51.26 Lumbosacra l radiculitis 32997826 M54.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 71604603 M47.817 [id number] Nani Baker MD PAIN OFFICE [address] [place] [address] 05/10/2018 10:04:19 05/10/2018 11:17:05 Displacement of lumbar intervertebral disc without myelopathy 19569381 M51.26 Lumbosacra l radiculitis 50460520 M54.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 78231843 M47.817 [id number] Nani Baker MD PAIN OFFICE [address] [place] [address] 05/19/2018 09:56:28 05/19/2018 15:41:12 Displacement of lumbar intervertebral disc without myelopathy 37168325 M51.26 Lumbosacra l radiculitis 16937311 M54.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 63631258 M47.817 [id number] Nani Bakre MD PAIN OFFICE [address] [facility] [place] [address] 05/26/2018 13:50:26 05/26/2018 15:01:39 Compression fracture of vertebral column 34471349 M48.50XA Lumbosacra l radiculitis 60016163 M54.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 33523736 M47.817 Displaceme nt of lumbar intervertebral disc without myelopathy 00870821 M51.26 [id number] Nani Baker MD PAIN OFFICE [address] [facility] [place] [address] 06/30/2018 13:04:08 06/30/2018 15:53:01 Compression fracture of vertebral column 00628811 M48.50XA Lumbosacra l radiculitis 76564766 M54.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 89992842 M47.817 Displaceme nt of lumbar intervertebral disc without myelopathy 12552759 M51.26 [id number] Nani Baker MD PAIN OFFICE [address] [facility] [place] [address] 02/18/2019 11:22:38 02/24/2019 16:59:49 Displacement of lumbar intervertebral disc without myelopathy 79435905 M51.26 Lumbosacra l radiculitis 90905878 M54.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 36311207 M47.817 [id number] Nani Baker MD PAIN OFFICE [address] [facility] [place] [address] 03/16/2019 09:37:32 03/18/2019 15:35:03 Displacement of lumbar intervertebral disc without myelopathy 57750615 M51.26 Lumbosacra l radiculitis 45208156 M54.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 46544414 M47.817 [id number] Nani Baker MD [facility] [address] [place] [address] 04/27/2019 13:01:33 04/29/2019 16:03:44 Displacement of lumbar intervertebral disc without myelopathy 89009519 M51.26 Lumbosacra l radiculitis 07878884 M54.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 49529562 M47.817 [id number] Nani Baker MD [facility] [address] [place] [address] 06/29/2019 11:44:47 06/29/2019 14:05:58 Displacement of lumbar intervertebral disc without myelopathy 05208677 M51.26 Lumbosacra l radiculitis 47202003 M54.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 06270817 M47.817 [id number] Nani Baker MD [facility] [address] [place] [address] 08/08/2019 10:52:11 08/08/2019 11:32:02 Displacement of lumbar intervertebral disc without myelopathy 69037772 M51.26 Lumbosacra l radiculitis 58186605 M54.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 03027285 M47.817 [id number] Nani Baker MD [facility] [address] [place] [address] 10/24/2019 11:08:07 10/24/2019 11:23:30 Displacement of lumbar intervertebral disc without myelopathy 11216628 M51.26 Lumbosacra l radiculitis 00205081 M54.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 36235811 M47.817 [id number] Nani Baker MD [facility] [address] [place] [address] 10/25/2019 13:58:37 10/27/2019 10:16:27 Displacement of lumbar intervertebral disc without myelopathy 52638894 M51.26 Lumbosacra l radiculitis 05029872 M54.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 95725007 M47.817 [id number] Nani Baker MD PAIN OFFICE [address] [place] [address] 11/24/2019 09:33:21 11/24/2019 09:59:39 Displacement of lumbar intervertebral disc without myelopathy 57810003 M51.26 Lumbosacra l radiculitis 79026735 M54.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 41175699 M47.817 [id number] Nani Baker MD [facility] [address] [facility] [place] [address] 02/08/2020 08:30:06 02/08/2020 09:36:12 Displacement of lumbar intervertebral disc without myelopathy 63477252 M51.26 Lumbosacra l radiculitis 85616623 M54.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 34533715 M47.817 [id number] Nani Baker MD PAIN OFFICE [address] Delivery te [facility] [place] [address] 03/13/2020 14:47:56 03/13/2020 16:08:29 Displacement of lumbar intervertebral disc without myelopathy [id number] M51.26 Lumbosacra l radiculitis [id number] M54.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 55627940 M47.817 [id number] Nani Baker MD [facility] [address] Delivery te [facility] [place] [address] 05/02/2020 09:37:41 05/02/2020 09:45:38 Displacement of lumbar intervertebral disc without myelopathy [id number] M51.26 Lumbosacra l radiculitis 46964428 M54.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 78151721 M47.817 [id number] Nani Baker MD PAIN OFFICE [address] Delivery te [facility] [place] [address] 06/13/2020 09:22:04 06/13/2020 13:57:59 Displacement of lumbar intervertebral disc without myelopathy [id number] M51.26 Lumbosacra l radiculitis 16144232 M54.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 68302117 M47.817 [id number] Nani Baker MD PAIN OFFICE [address] [place] [address] 08/02/2020 14:05:18 08/02/2020 14:11:48 Displacement of lumbar intervertebral disc without myelopathy [id number] M51.26 Lumbosacra l radiculitis 68420788 M54.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 38796546 M47.817 [id number] Nani Baker MD PAIN OFFICE [address] [place] [address] 09/12/2020 10:50:25 09/12/2020 16:08:53 Displacement of lumbar intervertebral disc without myelopathy [id number] M51.26 Lumbosacra l radiculitis 56810654 M54.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 03911499 M47.817 [id number] Nani Baker MD PAIN OFFICE [address] [place] [address] 11/09/2020 11:12:28 11/14/2020 11:32:15 Displacement of lumbar intervertebral disc without myelopathy [id number] M51.26 Lumbosacra l radiculitis 77680588 M54.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 90082907 M47.817 Health Concerns Section Related Observation LastModified by Organization Detai ls LastModified Time None Recorded Concern Status LastModified by Organization Details LastModified Time None Recorded Advance Directives Directive None Recorded Payers Encounter Date Sequence Insurance Name Policy Number Policy Richardson Covered Member ID Richardson Member ID Guarantor Name 05/02/2020 1 [facility] - DOS PRIOR TO 2022 - DUAL ELIGIBLE (MEDICARE REPLACEMENT/ADV ANTAGE - HMO) Tova Lopez [id number] Tova Lopez 06/13/2020 1 [facility] - DOS PRIOR TO 2022 - DUAL ELIGIBLE (MEDICARE REPLACEMENT/ADV ANTAGE - HMO) Tova Lopez [id number] Tova Lopez 08/02/2020 1 [facility] - DOS PRIOR TO 2022 - DUAL ELIGIBLE (MEDICARE REPLACEMENT/ADV ANTAGE - HMO) Tova Lopez [id number] Tova Lopez 09/12/2020 1 [facility] - DOS PRIOR TO 2022 - DUAL ELIGIBLE (MEDICARE REPLACEMENT/ADV ANTAGE - HMO) Tova Lopez [id number] Tova Lopez 11/09/2020 1 [facility] - DOS PRIOR TO 2022 - DUAL ELIGIBLE (MEDICARE REPLACEMENT/ADV ANTAGE - HMO) Tova Lopez [id number] Tova Lopez Notes Date Note Type Note Provider Name and Address Organization Details Recorded Time 05/02/2020 text/html This is a follow up after a lumbar epidural steroid injection under fluoroscopic guidance. She reports 90% pain relief for 6 weeks. She is walking better and has been walking one mile a day or more . She has no history of bladder or bowel incontinence. She is complaining of low back pain radiating into both lower extremities with numbness and tingling, right is greater than left for the past few weeks. She is walking with a cane . She has been doing a home exercise program with persistent pain. She had swelling of her feet and had treatment for gout . The swelling has resolved. She has no history of bladder or bowel incontinence. Nani Baker MD [address] [facility] , [address], [place], [address], [facility] 05/07/2020 11:11:41 06/13/2020 text/html She is here for a lumbar epidural steroid injection under fluoroscopic guidance. She has stopped Xarelto for the procedure. Nani Baker MD [address] [facility] , [address], [place], [address], [facility] 06/13/2020 15:54:04 08/02/2020 text/html This is a follow up after a lumbar epidural steroid injection under fluoroscopic guidance. She reports 90% pain relief for 6 weeks. She is walking better and has been walking one mile a day or more . She has no history of bladder or bowel incontinence. She is complaining of low back pain radiating into both lower extremities with numbness and tingling, right is greater than left for the past few weeks. She is walking with a cane . She has been doing a home exercise program with persistent pain. She has no history of bladder or bowel incontinence.She had a fall at home and has a fracture in her right hand for which she is wearing a cast . She is going to [place] for a trip to see her sons. Nani Baker MD [address] [facility] , [address], [place], [address], [facility] - Pain Management 08/10/2020 09:32:56 09/12/2020 text/html She is here for a lumbar epidural steroid injection under fluoroscopic guidance. She has stopped Xarelto for the procedure.She is S/P Fall at home with right wrist injury Nani Baker MD [address] [facility] , [address], [place], [address], [email or web address] - Pain Management 09/12/2020 16:20:02 11/09/2020 text/html This is a follow up . She states she has recently fallen at home and has increasing low back pain. She had X-rays done at [facility] which shows multiple compression fractures L1, L2 and L4 with an increasing compression fracture at L4 which appears new. She states her primary care physician is arranging for her to have a vertebroplasty done. She states she is pretty bed ridden due to pain. She has no history of bladder or bowel incontinence. Nani Baker MD [address] [facility] , [address], [place], [address], [email or web address] 11/14/2020 15:46:05 OBGyn Episode No OBEpisode recorded.
== END 2024-06-16 16:25 | disposition home or self-care (01) ==
PROVIDERS: PCP Nurse Practitioner Family; Visit Provider Internal Medicine
DX: J44.9 Chronic obstructive pulmonary disease, unspecified (principal); Z87.891 Personal history of nicotine dependence
CPT/HCPCS: 99213

== ENCOUNTER → 2024-06-16 15:28 | Outpatient (BNVA) | payer OTHER, SELFPAY | PROVIDERS: PCP Nurse Practitioner Family; Visit Provider Internal Medicine | DX: J44.9 Chronic obstructive pulmonary disease, unspecified (principal); Z79.891 Long term (current) use of opiate analgesic | CPT/HCPCS: 99212 ==

== ENCOUNTER 2024-07-15 14:58 | Outpatient (REF) | payer OTHER, SELFPAY | END 2024-07-15 14:59 | disposition home or self-care (01) | LOC: HO.CT 14:58 | PROVIDERS: PCP Nurse Practitioner Family; Visit Provider Nurse Practitioner Family | DX: S09.90XA Unspecified injury of head, initial encounter (principal) | CPT/HCPCS: 70450 ==

== ENCOUNTER 2024-09-01 11:40 | Outpatient (AMB) | payer OTHER, SELFPAY ==
--- NOTE | 2024-09-01 11:45 | MHC.OFFWIV ---
Intake Vital Signs 09/01/24 11:48 Weight 106 lb 6 oz BP 130/78 Blood Pressure Location Rt brachial Position Sitting Pulse 67 Pulse Source Pulse Oximeter Pulse Oximetry (%) 98 Oxygen Delivery Method Room Air Intake Visit Reasons: EP headaches due to head concussion Patient Tobacco Use Status: Current everyday Tobacco user Allergies Cephalosporins [CEPHALOSPORINS] Allergy (Unknown, Verified 09/01/24 12:03) UNKNOWN gabapentin [GABAPENTIN] Allergy (Unknown, Verified 09/01/24 12:03) UNKNOWN mirtazapine [From REMERON] Allergy (Unknown, Verified 09/01/24 12:03) UNKNOWN naproxen Allergy (Unknown, Verified 09/01/24 12:03) UNKNOWN tramadol Allergy (Unknown, Verified 09/01/24 12:03) UNKNOWN bupropion [From WELLBUTRIN] Adverse Reaction (Unknown, Verified 09/01/24 12:03) Shaky Do you need a note to return to daycare/school/sports/work: No HPI HPI Comments History of Present Illness Details 79 y/o female patient who presents to the walk in clinic with c/o Chronic Headaches for few months now. She suffered a minor head injury - Hit her head against a Kitchen Cabinet back in 05/2024. She ended up with a Small Hematoma right Temporal region that has since been resolved. Pt reports persistent headaches ever since - Had CT Scan Head done 07/18/2024 that showed : Findings: No intra-axial mass, midline shift, hydrocephalus, or acute hemorrhage. No significant atrophy-like change or white matter disease. There is no sinus or mastoid fluid. The orbits are unremarkable. There is no acute fracture. IMPRESSION: No acute intracranial findings. Denies Dizziness, vision changes, Speech or auditory changes, nausea or vomiting. Son reports that Patient does snore at night and she does need use her Oxygen daily due to COPD. She currently takes Xarelto and cannot use NSAIDs. She is worried taking Acetaminophen because she believes it will cause [place] (because the medication bottle has that warning on it). [facility] Medical History (Updated 09/01/24 @ 12:50 by Melodie Go NP) Generalized headaches Nocturnal hypoxemia Basal cell carcinoma History of COVID-19 (~06/2021) Personal history of nicotine dependence Osteopenia (~2009) History of non-ST elevation myocardial infarction (NSTEMI) (~04/2016) COPD (chronic obstructive pulmonary disease) Depression with anxiety Brain aneurysm Bilateral carotid artery stenosis PAF (paroxysmal atrial fibrillation) (~04/2016) Atherosclerotic cardiovascular disease Surgical History History of inguinal hernia repair, bilateral (~2018) History of skin surgery History of arthroscopic surgery of shoulder (~2009) History of carpal tunnel release History of bladder surgery History of thumb surgery History of tubal ligation History of total hysterectomy Family History Father No problems noted. Mother No problems noted. Brother Stroke Social History Household Members: None Housing: Other Housing Other:: mobile home Are you a primary customer care associate to a significant other at home: No Do you presently have visiting nurse or other home services: Yes ([facility] q6 months) Comment: MEDICATED Patient Tobacco Use Status: Current everyday Tobacco user Tobacco use type: Cigarette Cigarette Packs Per Day: 0.5 Cigarettes Per Day: 7 Years Smoked: 68 e-Cigarette/Vaping Use: Former Use Substance Use Type: Marijuana Advance Directives Date on File: 08/03/23 service: No Current occupational status: retired and disabled Cognitive needs: No Hearing needs: No Vision needs: No Review of Systems Const All systems reviewed & are unremarkable except as noted in HPI and below Physical Exam Vital Signs: Last Vital Signs Pulse 67 09/01/24 11:48 BP 130/78 09/01/24 11:48 Pulse Ox 98 09/01/24 11:48 Oxygen Delivery Method Room Air 09/01/24 11:48 Const General: cooperative and no acute distress Nutritional Appearance: well nourished Orientation/consciousness: patient oriented x3 HEENT Head: Yes normocephalic, Yes atraumatic, No Patton's sign, No palpable skull fracture, No Temporal artery tenderness present and No periorbital ecchymosis Ears: external ears normal and TM's normal bilaterally General nose exam: Normal nasal mucous membranes and turbinates present Face and sinus: Yes sinuses nontender Mouth: tongue normal and moist mucous membranes Throat: Yes uvula midline Eyes Pupils: Equal, round and reactive pupils present Resp Effort & Inspection: normal respiratory effort Neuro General: patient oriented x3, gait normal and moves all extremities Cranial nerves: Yes Equal, round and reactive pupils present and Yes Bilaterally intact EOM present Motor exam (neuro): 5/5 motor strength present throughout Psych Speech and movement: Normal speech and movement present Assessment & Plan Assessment & Plan (1) Generalized headaches: Code(s): R51.9 - Headache, unspecified Plan: Advised to take Acetaminophne for pain relief. Acetaminophne is safe to take with Xarelto. Educated on common causes or triggers for chronic headaches and how to avoid them Limit screen time. Use Oxygen Supp as Directed. Need to f/u with PCP for possible Neurology referral and Sleep study. Coding Level of Care Code Est Pt Level 4 (59424) Diagnoses Generalized headaches R51.9 Time Spent (min) 20
[2024-09-01 11:48] VITALS: BP 130/78; PULSE 67; O2SAT 98
--- OUTSIDE RECORDS SUMMARY | 2024-09-01 15:14 | XMS_ITS | Continuity of Care Document ---
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 Patient had been seen approx 1 week ago for same symptoms, negative covid and flu, diagnosed as COPD exacerbation, started on azithro and prednisone. However there was some confusion from patient, she received first dose in home but did not pickup any prescriptions. Received only 1 days treatment. Today states symptoms are the same, having persistent cough, occasionally productive, mild dyspnea, sensation of chest congestion . For medic in home she is awake, alert, in no distress. Her vitals are WNL. Lungs have some coarse rhonchorous breath sounds mainly on the right. Patient has been taking albuterol inhaler at home. No associated chest pain, back pain, pleurisy, hemoptysis. No fevers, nausea/vomiting , abdominal pain. No LE edema, redness, swelling, asymmetry. Denies other ROS. Plan: Impression is that this is likely persistent COPD exacerbation only partially treated, she is amenable to a full course of azithro and prednisone and following up with PMD for recheck. Advised she administer her home nebulizers in addition to her albuterol inhaler given her current lung sounds. Also advised that she will need a recheck with PMD in the next several days and will need a CXR if she has persistent asymmetric lung sounds. I have a lower suspicion at this time for an occult emergency medical condition such as ACS, PE, aortic dissection, AAA, sepsis. Patient instructed to seek care immediately with any acute worsening or change in her symptoms which she understands. Discharged from visit with mandatory timed followup and strict return precautions reviewed. Primary care, consider 48 hour followup and outpatient CXR if symptoms persist. Disposition: We discussed the diagnostic uncertainty of home visits and the risk associated with this. In this case, the patient and I felt this to be an acceptable and reasonable amount of risk given the benefit of avoiding an ED visit. We discussed the need to seek care urgently/emerge ntly in the setting of any new or worsening serious symptoms [id number] Not available 08/03/2024 13:20:31 Plan of Treatment Reminders Order Date Submit Date Provider Last Modified By Organization Details Last Modified Time Details Appointments None recorded. Lab None recorded. Referral None recorded. Procedures None recorded. Surgeries None recorded. Imaging None recorded. Medication Orders azithromyci n 250 mg tablet 2024 025 [facility]armacy #[id number], [address] [place] [address], [id number], 12:50:09 azithromyci n 250 mg tablet 2024 025 [id number], [address] [place], [id number], 5 12:50:08 prednisone 20 mg tablet 2024 [facility] #[id number], [address] [place] [address], [id number], 5 12:50:08 prednisone 20 mg tablet 2024 025 [facility]armacy #[id number], [address] [place] [address], [id number], 5 12:50:57 Patient TargetsNo targets recorded. Patient InstructionsNo instructions recorded. Reason for Referral None Reported. Medical Equipment None Reported. Allergies Allergen ID Allergen Name Allergen Category Reaction Reaction Severity Criticality Documentation Date Start Date Code Code System Note Provider Name and Address Organization Details Recorded Time 28925 tramadol medicatio n Not available Not available Not available 07/26/2024 12890 RxNorm Not Available [facility] - production 16:15:34 Medications Name Sig Start Date Stop Date Status Note LastModified by Organization Details LastModified Time ketorolac 15 mg/mL injection solution Inject 15 mg by intramuscul ar route. 2023 active Not Available Not Available Not Avai lable atorvastatin 40 mg tablet TAKE 1 TABLET BY MOUTH EVERY DAY active Not Available Not Available No t Available clonidine HCl 0.1 mg tablet TAKE 1 TABLET BY MOUTH TWICE A DAY NEEDED FOR ANXIETY/WHITE IC ATTACK active Not Available Not Available No t Available magnesium oxide 420 mg tablet TAKE 1 TABLET BY MOUTH AT BEDTIME active Not Available Not Available No t Available ipratropium 0.5 mg-albuterol 3 mg (2.5 mg base)/3 mL nebulization soln INHALE 3 ML INHALED EVERY 4 TO 6 HOURS NEEDED FOR WHEEZING active Not Available Not Available No t Available clindamycin HCl 300 mg capsule PLEASE SEE ATTACHED FOR DETAILED DIRECTIONS active Not Available Not Available N ot Available albuterol sulfate 2.5 mg/3 mL (0.083 %) solution for nebulization 2.5 MG (3 ML) INHALED 3 TIMES A DAY active Not Available Not Available No t Available cetirizine 10 mg tablet TAKE 5 MG (1/2 X 10 MG) ORALLY DAILY NEEDED FOR FOR ALLERGIES FOR 90 DAYS active Not Available Not Available Not Available azithromycin 250 mg tablet TAKE 1 TABLET (250 MG) BY ORAL ROUTE ONCE DAILY FOR 4 DAYS active Not Available Not Available No t Available ofloxacin 0.3 % eye drops PUT 2 DROPS IN TO THE AFFECTED EYE(S) 4 TIMES A DAY active Not Available Not Available Not Available prednisone 20 mg tablet TAKE 2 TABLETS BY MOUTH EVERY DAY FOR 4 DAYS active Not Available Not Available No t Available clonazepam 0.5 mg tablet TAKE 1 TABLET BY MOUTH THREE TIMES A DAY DIRECTED NEEDED FOR SEVERE ANXIETY active Not Available Not Available No t Available sulfamethoxa zole 800 mg-trimethop rim 160 mg tablet TAKE 1 TAB ORALLY 2 TIMES A DAY FOR 3 DAYS active Not Available Not Available N ot Available prednisolone acetate 1 % eye drops,suspen bakari INSTILL 1 DROP INTO BOTH EYES TWICE A DAY active Not Available Not Available Not Available methocarbamo l 750 mg tablet 750 MG ORALLY 4 TIMES A DAY active Not Available [...] mcg/actuatio n aerosol inhaler INHALE 2 PUFFS ORALLY EVERY 6 HOURS NEEDED FOR BRONCHOSPAS M FOR 30 DAYS active Not Available Not Available No t Available fluticasone propionate 110 mcg/actuatio n HFA aerosol inhaler INHALE 1 PUFF TWICE A DAY active Not Available Not Available No t Available oxycodone 5 mg tablet TAKE 1 TABLET BY MOUTH EVERY 4 HOURS NEEDED FOR POST OPERATIVE PAIN X5 DAYS active Not Available Not Available [...] Not Available Not Available No t Available nitrofuranto in monohydrate/ macrocrystal s 100 mg capsule TAKE 1 CAPSULE BY MOUTH TWICE A DAY DIRECTED active Not Available Not Available No t Available pregabalin 25 mg capsule TAKE 1 TABLET ORALLY 2 TIMES A DAY FOR 30 DAYS active Not Available Not Available Not Available budesonide 1 mg/2 mL suspension for nebulization INHALE 1 VIAL VIA NEBULZIER ONCE DAILY active Not Available Not Available N ot Available oseltamivir 30 mg capsule TAKE 1 CAPSULE BY MOUTH TWICE A DAY active Not Available Not Available No t Available cholecalcife rol (vitamin D3) 50 mcg (2,000 unit) capsule TAKE 1 CAPSULE BY MOUTH EVERY DAY active Not Available Not Available No t Available ketorolac 30 mg/mL injection solution Inject 15 mg. 2023 active Not Available Not Available Not Avai lable Xarelto 20 mg tablet TAKE 1 TABLET BY MOUTH EVERY DAY active Not Available Not Available No t Available Tiadylt ER 120 mg capsule,exte nded release TAKE 1 CAPSULE BY MOUTH DAILY active Not Available Not Available Not Available Vitals Date Recorded Heart rate Respiratory rate Body temperature Oxygen saturation Oxygen saturation in Arterial blood by Pulse oximetry Systolic blood pressure Diastolic blood pressure Provider Name and Address Organization Details Last Updated DateTime 5 81 /min 18 /min 97.9 [degF] 96 % 96 % 130 mm[Hg] 82 mm[Hg] Not Available [facility] 12:44:18 Social History None recorded. Functional Status None recorded. Mental Status None recorded. Family History Nothing Reported. Medical History No medical history recorded. Gynecological HistoryNo gynecological history recorded. Obstetrics History GPAL:G 0 P 0 0 0 0 Past Encounters Encounter ID Performer Location Encounter Start Date Encounter Closed Date Diagnosis/Indication Diagnosis SNOMED-CT Code Diagnosis ICD10 Code Diagnosis Note [id number] Mirza De Leon MD [facility] [address] [place] [phone] 07/26/2024 18:40:40 07/27/2024 10:40:18 Acute exacerbation of chronic obstructive pulmonary disease 694269750 J44.1 Symptoms c/w COPD exacerbati on; worsening SOB and sputum production . Negative flu/COVID. Will treat with Z-pack and Prednisone burst similar to prior episodes. Discussed red flag signs for which to seek higher level of care. [id number] Frank Vuong MD [facility] [address] [place] [phone] 08/03/2024 12:44:16 08/03/2024 15:59:11 Acute exacerbation of chronic obstructive pulmonary disease 611719889 J44.1 Health Concerns Section Related Observation LastModified by Organization Detai ls LastModified Time None Recorded Concern Status LastModified by Organization Details LastModified Time None Recorded Payers Encounter Date Sequence Insurance Name Policy Number Policy Richardson Covered Member ID Richardson Member ID Guarantor Name 08/03/2024 1 [facility] - DOS ON OR AFTER 2022 - DUAL ELIGIBLE - JAIL OPTIONS AND ONE CARE (MEDICARE REPLACEMENT/ADV ANTAGE - HMO) Tova Lopez [id number] Tova Lopez Notes Date Note Type Note Provider Name and Address Organization Details Recorded Time 08/03/2024 text/html [facility] Nurse Triage Notes (Gamalielhilary Maria Guadalupe): Reason For Request: Pt reporting a cold>chest feels tight>COPD>started in her head then graduated to her chest>trouble breathingDenies: Increased work of breathing/labored ? with or without fever Unable to speak in full sentences without distress Discoloration of skin -cyanosis Needs to sleep sitting up, can? t catch breath Shortness of breath in setting of confusion Chief Complaints: Breathing Problems, Common Cold, Cough, DizzinessPMH: COPD/Asthma, Coronary Artery Disease, Arrhythmias (e.g., Atrial Fibrillation), Hyperlipidemia, Myocardial InfarctionPMH Reviewed at 08/03/2024Allergies Reviewed at 08/03/2024:Comments: Patient calling in to place a referral, identified via name and . Patient with history of afib on xaretlo. Patient has more allergies but cannot recall at this time. Patient seen 07/28 and was given prednisone and a zpak, patient looking for the same treatment. She did have an appt this afternoon with her PCP but canceled due to feeling sick. Patient woke up today stuffy with chest congestion, a productive cough, shortness of breath with occasional dizziness and fatigue. She denies fever/chill, no nausea or vomiting, +diarrhea. Patient has 2 inhalers and a neb which does help symptoms. She also has prn o2 which she has not had to wear. Patient is speaking in full, clear and complete sentences during intake. She would like to be evaluated. ................... ................... ................... ................... ................... ................... ................... ........ Grain Unloader Note From Eduardo Rascon: Dispatched to the call address for the female with URI symptoms. Pt states she was seen last week for the same thing and was given a single dose of Prednisone (40mg) and Azithromycin (500mg) and nothing else. Pt complains of headaches, productive cough with yellow/green sputum, malaise and lethargy. She denies chest pain, diff breathing/sob, fevers, n/v/d or any other complaints at this time. She has MDI and nebulizer, she has only used her MDI with good effect. Pt was found sitting on opening door, CAOx4, airway open and patent, breathing non labored, able to speak in full sentences, -JVD, -HEENT, skin PWD with good turgor, mucous membranes pink and moist, +CMSx4, -edema/swelling, abd soft non tender/distended, lungs with slight wheezing and right sided rhonchi. [facility]. Pt given 40mg PO prednisone and 500mg PO Azithromycin. Scripts called into preferred pharmacy. Red flags discussed. ALL times are approx. [facility] [place] Orders: azithromycin 250 mg tablet: Administered prednisone 20 mg tablet: Administered ................... ................... ................... ................... ................... ................... ................... ........ [facility] [place]ed: Frank Vuong ................... ................... ................... ................... ................... ................... ................... ........ Disposition: Fulfilled Frank Vuong MD [address] [facility],[address], [place], [address], AJAY MICHAEL 08/03/2024 13:20:37 OBGyn Episode No OBEpisode recorded.
--- OUTSIDE RECORDS SUMMARY | 2024-09-01 15:14 | XMS_ITS | Data Portability ---
Author Organization [employer] [place] [employer] Address [address] [place] [address] Care Team Providers Care Reclaimer Name Role Phone HIM CCA OTHER KAREN JOHNSTON Primary Care Provider Assessment Encounter Date Assessment Date Assessment LastModified by Organization Details LastModified Time 01/12/2024 01/12/2024 service called for constipation found [...] primary team [email or web address] Not available 01/13/2024 07:44:07 08/03/2024 08/03/2024 Impression: 79yo/f with hx of COPD on 02 PRN requesting evaluation for cough and dyspnea. [...] pain, back pain, pleurisy, hemoptysis. No fevers, nausea/vomiting, abdominal pain. No LE edema, redness, swelling, [...] of any new or worsening serious symptoms [email or web address] Not available 08/03/2024 13:20:31 Plan of Treatment Reminders Order Date Submit Date Provider Last Modified By Organization Details Last Modified Time Details Appointments None recorded. Lab rapid SARS CoV 2 Ag, QL IA, respiratory specimen 2024 025 [facility], [address] [place] [address], [id number], 19:17:19 rapid flu (A+B) 2024 025 [facility], [address] [place] [address], [phone], 19:17:43 Referral None recorded. Procedures None recorded. Surgeries None recorded. Imaging None recorded. Medication Orders azithromyci n 250 mg tablet 2024 [facility]/Pharmacy #[id number], [address] [place], [address], 12:50:09 azithromyci n 250 mg tablet 2024 025 [email or web address] 84 [facility]/Pharmacy #0315, [address] [place], [address], 5 12:50:08 prednisone 20 mg tablet 2024 025 [email or web address] 84 [facility]/Pharmacy #0315, [address] [place], [address], 5 12:50:08 prednisone 20 mg tablet 2024 025 [facility]/Pharmacy #0315, [address] [place], [address], 5 12:50:57 prednisone 20 mg tablet 2024 025 [email or web address] [facility]/Pharmacy #0315, [address] [place], [address], 5 18:44:48 prednisone 20 mg tablet 2024 025 [facility], [address] [place], [address], 5 18:44:49 azithromyci n 500 mg tablet 2024 025 [email or web address] [facility]/Pharmacy #0315, [address] [place], [address], 5 18:44:48 azithromyci n 250 mg tablet 2024 025 [facility], [address] [place], [address], 5 18:44:50 ketorolac 30 mg/mL injection solution 2023 024 [email or web address] [facility]/Pharmacy #0315, [address] [place], [address], 4 17:51:25 ketorolac 15 mg/mL injection solution 2023 024 [email or web address], [address] [place], [address], 4 22:18:07 Patient TargetsNo targets recorded. Patient InstructionsNo instructions recorded. Reason for Referral None Reported. Results Created Date Observation Date Name Description Value Unit Range Abnormal Flag Note LastModifiedBy Organization Detail LastModifiedTime 07/26/19 25 07/26/2024 rapid flu (A+B) Flu negati ve Not Available [facility] ed [address] [place] [address], [phone], 07/26/2024 18:42:19 07/26/19 25 07/26/2024 rapid SARS CoV 2 Ag, QL IA, respi rator y speci men rapid SARS CoV 2 Ag, QL IA, respiratory specimen negati ve Not Available [facility] ed [address] [place] [address], [id number], 07/26/2024 18:42:18 Result Notes None recorded. Medical Equipment None Reported. Allergies Allergen ID Allergen Name Allergen Category Reaction Reaction Severity Criticality Documentation Date Start Date Code Code System Note Provider Name and Address Organization Details Recorded Time 56516 tramadol medicatio n Not available Not available Not available 07/26/2024 59829 RxNorm Not Available [facility] - [facility] 5 16:15:34 Medications Name Sig Start Date Stop [...] Not Available Not Available Vitals Date Recorded Respiratory rate Heart rate Body height Body weight Body temperature Oxygen saturation Oxygen saturation in Arterial blood by Pulse oximetry Systolic blood pressure Diastolic blood pressure Provider Name and Address Organization Details Last Updated DateTime 4 18 /min 96 /min 152.4 cm 60393.1 2 g 98.1 [degF] 93 % 93 % 134 mm[Hg] 80 mm[Hg] Not Available [facility] - production 4 20:33:59 Date Recorded Body temperature Oxygen saturation Oxygen saturation in Arterial blood by Pulse oximetry Heart rate Respiratory rate Systolic blood pressure Diastolic blood pressure Provider Name and Address Organization Details Last Updated DateTime 4 98 [degF] 96 % 96 % 122 /min 16 /min 110 mm[Hg] 60 mm[Hg] Not Available [facility] - production 4 18:46:11 Date Recorded Body temperature Oxygen saturation Oxygen saturation in Arterial blood by Pulse oximetry Respiratory rate Heart rate Systolic blood pressure Diastolic blood pressure Provider Name and Address Organization Details Last Updated DateTime 4 98.5 [degF] 94 % 94 % 18 /min 77 /min 108 mm[Hg] 56 mm[Hg] Not Available [employer] [facility] - production 4 18:24:53 Date Recorded Body height Heart rate Body weight Body temperature Respiratory rate Oxygen saturation Oxygen saturation in Arterial blood by Pulse oximetry Systolic blood pressure Diastolic blood pressure Provider Name and Address Organization Details Last Updated DateTime 5 152.4 cm 101 /min 21734.3 44 g 98.4 [degF] 18 /min 97 % 97 % 125 mm[Hg] 84 mm[Hg] Not Available [employer] - 5 18:40:45 Date Recorded Heart rate Respiratory rate Body temperature Oxygen saturation Oxygen saturation in Arterial blood by Pulse oximetry Systolic blood pressure Diastolic blood pressure Provider Name and Address Organization Details Last Updated DateTime 5 81 /min 18 /min 97.9 [degF] 96 % 96 % 130 mm[Hg] 82 mm[Hg] Not Available [employer] 5 12:44:18 Social History None recorded. Functional Status None recorded. Mental Status None recorded. Family History Nothing Reported. Medical History No medical history recorded. Gynecological HistoryNo gynecological history recorded. Obstetrics History GPAL:G 0 P 0 0 0 0 Past Encounters Encounter ID Performer Location Encounter Start Date Encounter Closed Date Diagnosis/Indication Diagnosis SNOMED-CT Code Diagnosis ICD10 Code Diagnosis Note [id number] Tori Calzada MD [facility] - [facility] [address] [place] [phone] 11/30/2023 12:30:07 11/30/2023 21:50:24 Chronic low back pain 654689658 M54.50 [id number] Edd Cat MD [facility] - [facility] [address] [place] [phone] 12/11/2023 20:33:57 12/12/2023 20:49:45 Chronic low back pain 364247549 M54.50 Reports acute-on-c hronic low back pain in the setting of malfunctio ca spinal cord stimulator . No new symptomato logy. Requesting pain control. Plan for ketorolac x1 (given report of Xarelto). Recommende d close follow-up with primary surgeon. [id number] Shawna Watts MD Main - [place] [phone] 12/13/2023 17:25:05 12/14/2023 14:46:05 Chronic low back pain 404040977 M54.50 Evaluation in the field was performed by my web production manager colleague, as noted above, I provided real-time [...] shortness of breath, cough, chest pain, fever. [id number] Morgan Curtis MD [facility] - [facility] [address] [place] [phone] 01/12/2024 18:24:51 01/13/2024 12:27:40 Constipation 61953851 K59.00 [id number] Mirza De Leon MD Main - [facility] [address] [place] [address] 0 07/26/2024 18:40:40 07/27/2024 10:40:18 Acute exacerbation of chronic obstructive pulmonary disease 628041102 J44.1 Symptoms c/w COPD exacerbati on; worsening SOB and sputum production . Negative flu/COVID. Will treat with Z-pack and Prednisone burst similar to prior episodes. Discussed red flag signs for which to seek higher level of care. [id number] Frank Vuong MD [facility] - [facility] [address] [place] [phone] 08/03/2024 12:44:16 08/03/2024 15:59:11 Acute exacerbation of chronic obstructive pulmonary disease 641867204 J44.1 Health Concerns Section Related Observation LastModified by Organization Detai ls LastModified Time None Recorded Concern Status LastModified by Organization Details LastModified Time None Recorded Advance Directives Directive None Recorded Payers Encounter Date Sequence Insurance Name Policy Number Policy Richardson Covered Member ID Richardson Member ID Guarantor Name 12/11/2023 1 [employer] C[employer] - DOS ON OR AFTER 2022 - DUAL ELIGIBLE - PENITENTIARY OPTIONS AND ONE CARE (MEDICARE REPLACEMENT/ADV ANTAGE - HMO) Tova Lopez [id number] Tova Lopez 12/13/2023 1 [employer] - DOS ON OR AFTER 2022 - DUAL ELIGIBLE - PENITENTIARY OPTIONS AND ONE CARE (MEDICARE REPLACEMENT/ADV ANTAGE - HMO) Tova Lopez [id number] Tova Lopez 01/12/2024 1 [employer] - DOS ON OR AFTER 2022 - DUAL ELIGIBLE - PENITENTIARY OPTIONS AND ONE CARE (MEDICARE REPLACEMENT/ADV ANTAGE - HMO) Tova Lopez [id number] Tova Lopez 07/26/2024 1 [email or web address] CARE ALLIANCE - DOS ON OR AFTER 2022 - DUAL ELIGIBLE - PENITENTIARY OPTIONS AND ONE CARE (MEDICARE REPLACEMENT/ADV ANTAGE - HMO) Tova Lopez [id number] Tova Lopez 08/03/2024 1 [facility] - DOS ON OR AFTER 2022 - DUAL ELIGIBLE - PENITENTIARY OPTIONS AND ONE CARE (MEDICARE REPLACEMENT/ADV ANTAGE - HMO) Tova Lopez [id number] Tova Venne Notes Date Note Type Note Provider Name and Address Organization Details Recorded Time 12/11/2023 text/html [facility] Nurse Triage Notes (GabrielrebeccaMarita): Reason For Request: Patient has a Spinal [...] .................... .................... .................... .................... .................... .................... . Snorkelling Instructor Note From Maribel Winslow: Sent to a [...] Back: unremarkable; Extremities: unremarkable; Skin: pink,warm, dry; [facility] consulted and orders Toradol 15mg as a one time dose. Toradol 15mg IM administered without incident. Pt states she will follow up with surgeon and PCP. Red flags discussed. Pt has no further questions. .................... .................... .................... .................... .................... .................... .................... . Disposition: Fulfilled Edd Cat MD [address] [facility],[address], [place], [address], [employer] 12/11/2023 22:18:20 12/13/2023 text/html [facility] Nurse Triage Notes (Maria Guadalpue Ayala): Reason For Request: Patient has hip [...] .................... .................... .................... .................... .................... .................... . Snorkelling Instructor Note From Franca You: Community Snorkelling Instructor Dash You SC6 dispatched to a p & s surgery center for a 78 yof C/O back [...] SOB, abd pain, N/V/D, or urinary S/S. [facility] consulted; she was instructed to follow up [...] . Disposition: Fulfilled Shawna Watts MD [address] [facility],[address], [place], [address], [employer] 12/13/2023 20:22:42 01/12/2024 text/html [facility] Nurse Triage Notes (Jeannie Snowden): Reason For Request: pain, pt experinecing numbmess in left hand, just had spinal device removed and has no appetite Chief Complaints: Dehydration PMH: COPD/Asthma, Heart Disease Allergies: Unknown Comments: Electrical Cad Technician verified the member's name//address and phone number. Member is a 78 yr old female PMH > chronic back pain > [place] 5-6 yrs ago, sepsis, COPD , stopped [...] .................... .................... .................... .................... .................... .................... . Snorkelling Instructor Note From Maribel Winslow: Sent to a [...] .................... .................... .................... .................... .................... . Disposition: Rene Curtis MD [address] [place] [address],[address], [place], [address], [employer] 01/13/2024 07:44:23 07/26/2024 text/html [facility] Nurse Triage Notes (Maria Guadalupe Ayala - HAIDER): Reason For Request: Pt just woke up and is feeling extremely ill, pt has no strength. Pt states she has cold symptoms that are not improving Chief Complaints: Weakness, Fatigue, Common cold symptoms, Cough PMH: COPD/Asthma, Coronary Artery Disease, Arrhythmias (e.g., Atrial Fibrillation), Hyperlipidemia, Myocardial Infarction PMH Reviewed at 07/26/2024 16:19 Allergies Reviewed at 07/26/2024:19 Comments: Patient calling in to place a referral, identified via name and . In addition to PMH patient has afib on xarelto. Patient has more allergies, but cannot recall at this time. Patient with cold symptoms since last Thursday. Patient reports a productive cough, stuffy/runny nose, chest congestion and wheezing, shortness of breath and headaches, loss of smell. She denies chest pain, no fever/chills, no nausea, vomiting or diarrhea, no dizziness. Patient has prn o2, but has not had to wear it, she also uses an inhaler. Patient also notes, hitting her head last week, seen by , sent to have a CT head, finding were unremarkable, however, she continues to have severe headaches, has an appt on Thursday with her PCP to discuss a possible MRI. She would like to be evaluated. Snorkelling Instructor Organization Information for Sybil Baldomeroyuri Owens Legal Name: [employer] ? Address: [address] [place] [address], Wire Spiral Binder: Xavier Garcia MD CLIA No.: [id number] Snorkelling Instructor POC Test Results from Devine Baldomeroyuri CONTRERAS Rapid COVID antigen (18:34:14) COVID: - Attachments uploaded as part of this test result can be found under Documents section. Rapid influenza antigen (18:34:15) Flu: - .................... .................... .................... .................... .................... .................... .................... . Snorkelling Instructor Note From Shital Devine: MIH makes pt contact. She is standing in her kitchen wearing her pajamas and heating up a cup of coffee in the microwave. She is generally well-appearing and smells of fresh cigarette smoke. She makes eye contact and invites [facility] to sit down. She sounds congested when she speaks, bu no stridor or sonorous respirations are present. No facial droop, slurred speech, or one-sided weakness are observed and she is not bleeding anywhere. Pt endorses cold symptoms including rhinitis, nasal congestion, and chest congestion x7 days. She says today she feels very fatigued, as she was restless and up and down last night, but she slept [id number] today. She became concerned w/ the fatigue and when she couldn't smell her cigarette as she was smoking. She denies cp, palpitations, sob, n/v/d, increased inhaler usage, abd pain, or sore throat. She endorses increased sputum that is occasionally green-tinged along w/ some yellow to green mucous from her nose. In the past, her PCP has put her on a prednisone taper and a Z-pietro when she gets sick. [facility] obtains vital signs and pt is assessed. Lung sounds reveal expiratory wheezes in the apices and clear sounds in the remaining lobes. Remaining physical exam is unremarkable. [facility] contacts [facility] and discusses the above. [facility] orders 40mg prednisone and 500mg azithromycin PO and calls in prescription for the pt. [facility] administers all medications and informs pt of red flags s/s. She thanks [facility] for coming. [facility] is clear. Report completed by ALEJO Devine [id number]. [facility] Lab Orders: rapid SARS CoV 2 Ag, QL IA, respiratory specimen: Performed rapid flu (A+B): Performed [facility] Medication Orders: prednisone 20 mg tablet: Administered azithromycin 500 mg tablet: Administered Comment: 2x 250mg tabs .................... .................... .................... .................... .................... .................... .................... . [facility] Consulted: Danie De Leon .................... .................... .................... .................... .................... .................... .................... . Disposition: Fulfilled Mirza De Leon MD [address] [place] [address],[address], [place], [address], [employer] 07/26/2024 20:20:55 08/03/2024 text/html [facility] Nurse Triage Notes (Maria Guadalupe Ayala): Reason For Request: Pt reporting a cold>chest [...] Atrial Fibrillation), Hyperlipidemia, Myocardial InfarctionPMH Reviewed at 08/03/2024 - 18Allergies Reviewed at 08/03/2024 - :18Comments: Patient calling in to place a referral, [...] intake. She would like to be evaluated. .................... .................... .................... .................... .................... .................... .................... . Snorkelling Instructor Note From Eduardo Rascon: Dispatched to the [...] with slight wheezing and right sided rhonchi. [facility] consulted. Pt given 40mg PO prednisone and 500mg PO Azithromycin. Scripts called into preferred pharmacy. Red flags discussed. ALL times are approx. [facility] Medication Orders: azithromycin 250 mg tablet: Administered prednisone 20 mg tablet: Administered .................... .................... .................... .................... .................... .................... .................... . [facility] Consulted: Frank Vuong .................... .................... .................... .................... .................... .................... .................... . Disposition: Fulfilled Frank Vuong MD [address] [facility],[address], [place], [address], [employer], [facility] 08/03/2024 13:20:37 OBGyn Episode No OBEpisode recorded.
--- OUTSIDE RECORDS SUMMARY | 2024-09-01 15:14 | XMS_ITS | Data Portability ---
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 She needs a guard driver on the day of the procedure. She is on Xarelto and needs to stop the medication three days prior to the injection per anticoagulation guidelines. Her sales and events coordinator states she can stop the medication for [...] booked after insurance approval. She needs a guard driver on the day of the procedure. She is on Xarelto and needs to stop the medication three days prior to the injection per anticoagulation guidelines. Her sales and events coordinator states she can stop the medication for [...] By Organization Details Last Modified Time 05/02/2020 [id number] She was advised to continue with activities [...] care. [email or web address] Not available 05/02/2020 09:45:02 06/13/2020 [id number] She was advised to continue with activities as tolerated and benefits of smoking cessation were reviewed with her. [email or web address] Not available 06/13/2020 10:02:50 08/02/2020 [id number] She was advised to continue with activities [...] care. [email or web address] Not available 08/02/2020 14:07:27 09/12/2020 [id number] She was advised to continue with activities as tolerated and benefits of smoking cessation were reviewed with her. [email or web address] Not available 09/12/2020 16:05:23 11/09/2020 [id number] She was advised to continue with activities [...] spine No observ ation record ed. eron [facility] [address] [place], [address], 11/14/2020 11:33:18 Result Notes None recorded. Problems Name Problem SNOMED Code Status Onset Date Resolution Date Notes Provider Name and Address Organization Details Recorded Time Lumbosacral spondylosis without myelopathy [id number] Chidi mas MD [address] [facility] , [address], [place], [address], [place] [facility] 6 18:39:02 Displacement of lumbar intervertebral disc without myelopathy 78362003 Chidi mas MD [address] , [address], [place], [address], [place] [facility] 6 18:39:03 Enthesopathy of hip region 59385448 Chidi mas MD [address] , [address], [place], [address], [place] [facility] 6 18:39:03 Compression fracture of vertebral column 16326725 Chidi mas MD [address] , [address], [place], [address], [place] [facility] 6 18:29:06 Postherpetic neuralgia 9300680 Active Nani mas MD [address] , [address], [place], [address], [place] [facility] 8 16:02:07 Lumbosacral radiculitis 02372797 Active Nani mas MD [address] , [address], [place], [address], [place] [facility] 6 18:29:06 Problem Notes None recorded. Procedures Surgical History Date Name Laterality Status Provider Name and Address Organization Details Recorded Time 09/13/19 21 Lumbar Epidural steroid injection under fluoroscopic guidance completed Nani Baker MD [address] , [address], [place], [address], [place] [facility] 09/12/2020 16:06:14 06/13/19 21 Lumbar Epidural steroid injection under fluoroscopic guidance completed Nani Baker MD [address] , [address], [facility] [place], [address], [place] [facility] 06/13/2020 10:03:35 03/13/20 20 Lumbar Epidural steroid injection under fluoroscopic guidance completed Nani Baker MD [address] , [address], [place], [address], [place] [facility] 03/13/2020 15:36:36 10/25/19 20 Lumbar Epidural steroid injection under fluoroscopic guidance completed Nani Baker MD [address] , [address], [place], [address], [place] [facility] 10/27/2019 09:47:43 06/29/19 20 Lumbar Epidural steroid injection under fluoroscopic guidance completed Nani Baker MD [address] , [address], [place], [address], [place] [facility] 06/29/2019 13:58:52 03/16/20 19 Lumbar Epidural steroid injection under fluoroscopic guidance completed Nani Baker MD [address] , [address], [place], [address], [place] [facility] 03/18/2019 15:32:17 05/19/20 18 Lumbar Epidural steroid injection under fluoroscopic guidance completed Nani Baker MD [address] , [address], [place], [address], [place] [facility] 05/19/2018 15:37:32 04/20/20 18 Greater Trochanteric Bursa Steroid Injection completed Nani Baker MD [address] , [address], [place], [address], [place] [facility] 04/20/2018 14:17:28 04/07/20 18 Greater Trochanteric Bursa Steroid Injection completed Nani Baker MD [address] , [address], [place], [address], [place] [facility] 04/07/2018 13:33:14 01/27/20 18 Greater Trochanteric Bursa Steroid Injection completed Nani Baker MD [address] , [address], [place], [address], [place] [facility] 01/28/2018 08:59:37 11/26/19 18 Fluoroscopic Guided Lumbar Facet Steroid Injections of levels completed Nani Baker MD [address] , [address], [place], [address], [place] [facility] 11/26/2017 10:21:29 10/08/19 18 Lumbar Epidural steroid injection under fluoroscopic guidance completed Nani Baker MD [address] , [address], [place], [address], [place] [facility] 10/07/2017 13:42:01 05/19/20 17 Greater Trochanteric Bursa Steroid Injection completed Nani Baker MD [address] , [address], [place], [address], [place] [facility] 05/21/2017 11:06:00 03/17/20 17 Lumbar Epidural steroid injection under fluoroscopic guidance completed Nani Baker MD [address] , [address], [place], [address], [place] [facility] 03/17/2017 13:42:48 04/06/20 14 Lumbar Epidural steroid injection under fluoroscopic guidance completed Nani Baker MD [address] , [address], [place], [address], [place] [facility] 04/06/2014 15:46:14 01/20/20 14 Radiofrequency of Lumbar/Sacral medial branches supplying the facets under fluoroscopic guidance completed Nani Baker MD [address] , [address], [place], [address], [place] [facility] 01/20/2014 11:09:57 12/27/19 14 Radiofrequency of Lumbar/Sacral medial branches supplying the facets under fluoroscopic guidance completed Nani Baker MD [address] , [address], [place], [address], [place] [facility] 12/28/2013 11:18:21 11/08/19 14 Fluoroscopic Guided Lumbar Facet Steroid Injections of levels completed Nani Baker MD [address] , [address], [place], [address], [place] [facility] 11/08/2013 15:17:09 10/25/19 14 Fluoroscopic Guided Lumbar Facet Steroid Injections of levels completed Nani Baker MD [address] , [address], [place], [address], [place] [facility] 10/27/2013 09:17:13 08/01/19 14 Lumbar Epidural steroid injection under fluoroscopic guidance completed Nani Baker MD [address] , [address], [place], [address], [place] [facility] 08/01/2013 14:24:11 04/05/20 13 Fluoroscopic Guided Lumbar Facet Steroid Injections of levels completed Nani Baker MD [address] , [address], [place], [address], [place] [facility] 04/06/2013 09:16:32 03/23/20 13 Fluoroscopic Guided Lumbar Facet Steroid Injections of levels completed Nani Baker MD [address] , [address], [place], [address], [place] [facility] 03/25/2013 11:35:45 01/25/20 13 Lumbar Epidural steroid injection under fluoroscopic guidance completed Nani Baker MD [address] , [address], [place], [address], [place] [facility] 01/24/2013 16:24:03 10/19/19 13 Lumbar Epidural steroid injection under fluoroscopic guidance completed Nani Baker MD [address] , [address], [place], [address], [place] [facility] 10/19/2012 09:47:49 Other completed Nani Baker MD [address] , [address], [place], [address], [place] [facility] 11/08/2013 [...] LastModified Time 10/19/2020 XR, lumbar spine completed [address] [place], [address], 11/14/2020 11:33:18 Procedure Notes None recorded. Medical Equipment None Reported. Allergies Allergen ID Allergen Name Allergen Category Reaction Reaction Severity Criticality Documentation Date Start Date Code Code System Note Provider Name and Address Organization Details Recorded Time 28515 naproxen medicatio n Not available Not available Not available 02/23/2017 7258 RxNorm Armida mckeon, [place] [facility] 7 15:04:34 79397 clonidine medicatio n Not available Not available Not available 02/23/2017 2599 RxNorm Armida [place]ckeon, [place] [facility] 7 15:04:42 44135 Wellbutri n medicatio n Not available Not available Not available 02/23/2017 82480 RxNorm Armida mckeon, [place] [facility] 7 15:05:01 70060 mirtazapi ne medicatio n Not available Not available Not available 02/23/2017 95693 RxNorm Armida mckeon, [place] [facility] 7 15:05:39 4741 Remeron medicatio n Not available Not available Not available 08/05/2012 34396 4 RxNorm Armida mckeon, [place] [facility] 3 14:22:46 4742 morphine medicatio n respirato ry distress Not available Not available 08/05/2012 7052 RxNorm Armida mckeon, [place] [facility] 4 10:46:06 5361 sulindac medicatio n arthralgi a (joint pain) Not available Not available 10/18/2012 84148 RxNorm Armida mckeon, [place] [facility] 3 14:30:10 6541 tramadol medicatio n headache Not available Not available 02/24/2013 33156 RxNorm Nani mas MD [facility] , [address], [facility] [place], [address] [facility] [place] [facility] 9 10:01:55 9401 Lyrica medicatio n headache Not available Not available 03/29/2014 65701 1 RxNorm Armida mckeon, [place] - [place] [...] Not Available Not Available Not Available Afluria 2826-2610(P F) 45 mcg (15 mcg x 3)/0.5 [...] Social History Question Answer Notes LastModified by Joognuizat ion Details LastModified Time Tobacco Smoking Status Former Smoker She is on a nicotine patch and states she has quit. Not Available [facility] 03/23/2020 03:16:11 What Is Your Level Of Alcohol Consumption? None [id number] Information not available 03/23/2020 Are You Currently Employed? Yes Disabled [id number] Information not available 03/23/2020 Which Illicit Or Recreational Drugs Have You Used? Marijuana [id number] Information not available 03/23/2020 Education 12 Information no t available 08/05/2012 Live Alone Or With Others? With Others Nephew Information not available 08/05/2012 Marital Status Informatio n not available 08/05/2012 What Was The Date Of Your Most Recent Tobacco Screening? 06/30/2018 [id number] Information not available 03/23/2020 How Much Tobacco Do You Smoke? 0.5 PPD [id number] Information not available 03/23/2020 Sex: Unknown Functional [...] SNOMED-CT Code Diagnosis ICD10 Code Diagnosis Note [id number] Nani Baker MD PAIN OFFICE [address] [facility] [address] [facility] [place] [place] [address] 08/05/2012 13:21:37 08/05/2012 15:33:38 28035 Nani Baker MD [facility] [address] [place] [address] 10/18/2012 14:16:54 10/18/2012 15:51:29 18601 [facility] [address] [place] [address] 11/18/2012 10:11:02 11/18/2012 15:37:35 61452 [facility] [address] [place] [address] 01/24/2013 13:25:53 01/24/2013 16:24:59 74588 [facility] PA[facility] [address] [place] [address] 02/24/2013 10:57:59 02/25/2013 09:00:54 92193 Nani Baker MD [facility] PA[facility] [address] [place] [address] 03/23/2013 13:53:07 03/23/2013 15:41:57 Lumbosacral spondylosis without myelopathy 72488615 Displaceme nt of lumbar intervertebral disc without myelopathy 71537686 49212 [facility] [address] [place] [address] 04/05/2013 12:57:19 04/05/2013 15:43:47 Lumbosacral spondylosis without myelopathy 69682221 Displaceme nt of lumbar intervertebral disc without myelopathy 82302370 Lumbosacra l radiculitis 42240537 05359 [facility] PA[facility] [address] [place] [address] 05/04/2013 10:54:36 05/04/2013 15:05:24 Lumbosacral spondylosis without myelopathy 51966432 Displaceme nt of lumbar intervertebral disc without myelopathy 88113095 Lumbosacra l radiculitis 97676886 46877 [facility] PA[facility] [address] [place] [address] 07/27/2013 09:43:56 07/27/2013 11:42:54 Lumbosacral spondylosis without myelopathy 79327813 Displaceme nt of lumbar intervertebral disc without myelopathy 87926536 Lumbosacra l radiculitis 27591190 45188 [facility] PA[facility] [address] [place] [address] 08/01/2013 13:26:06 08/02/2013 10:33:30 Lumbosacral spondylosis without myelopathy 21652674 Displaceme nt of lumbar intervertebral disc without myelopathy 73951892 Lumbosacra l radiculitis 63417287 12434 [facility] PA[facility] [address] [facility] [place] [place] [address] 08/30/2013 10:43:35 09/02/2013 09:22:59 Lumbosacral spondylosis without myelopathy 17254361 Displaceme nt of lumbar intervertebral disc without myelopathy 62248076 Lumbosacra l radiculitis 41809282 15160 [facility] PA[facility] [address] [facility] [place] [address] 10/06/2013 11:00:49 10/07/2013 11:11:22 Lumbosacral spondylosis without myelopathy 93207604 Displaceme nt of lumbar intervertebral disc without myelopathy 58620102 Lumbosacra l radiculitis 04140170 50635 SV PAIN OFFICE [address] [facility] [place] [place] [address] 10/24/2013 13:22:09 10/27/2013 09:18:15 Lumbosacral spondylosis without myelopathy 12417097 Displaceme nt of lumbar intervertebral disc without myelopathy 30074362 Lumbosacra l radiculitis 83126678 03622 [facility] PA[facility] [address] [facility] [place] [place] [address] 11/07/2013 10:27:07 11/08/2013 14:06:31 Lumbosacral spondylosis without myelopathy 16407836 Displaceme nt of lumbar intervertebral disc without myelopathy 59652020 Lumbosacra l radiculitis 65030967 53714 [facility] PA[facility] [address] [facility] [place] [place] [address] 11/29/2013 10:00:54 12/03/2013 16:50:45 Lumbosacral spondylosis without myelopathy 25780753 Displaceme nt of lumbar intervertebral disc without myelopathy 12327356 Lumbosacra l radiculitis 21652565 38870 Armida Hubbard PAIN OFFICE [address] [facility] [place] [place] [address] 12/26/2013 10:21:37 12/27/2013 15:19:55 Lumbosacral spondylosis without myelopathy 83804360 Displaceme nt of lumbar intervertebral disc without myelopathy 19260068 Lumbosacra l radiculitis 91858765 91742 [facility] PAIN OFF[facility] [address] [facility] [place] [address] 01/17/2014 13:07:43 01/18/2014 15:46:33 Lumbosacral spondylosis without myelopathy 08739648 Displaceme nt of lumbar intervertebral disc without myelopathy 23753244 Lumbosacra l radiculitis 08980076 06220 [facility] PA[facility] [address] [facility] [place] [place] [address] 01/19/2014 10:41:36 01/20/2014 11:12:44 Lumbosacral spondylosis without myelopathy 91910691 Displaceme nt of lumbar intervertebral disc without myelopathy 67486937 Lumbosacra l radiculitis 93405219 69206 [facility] PA[facility] [address] [facility] [place] [place] [address] 02/21/2014 10:49:23 02/21/2014 11:45:38 Lumbosacral spondylosis without myelopathy 42612595 Displaceme nt of lumbar intervertebral disc without myelopathy 84659664 Lumbosacra l radiculitis 72798212 04335 [facility] PAIN OFF[facility] [address] [facility] [place] [place] [address] 03/29/2014 10:32:34 03/29/2014 11:28:43 Lumbosacral spondylosis without myelopathy 83658151 Displaceme nt of lumbar intervertebral disc without myelopathy 80922854 Lumbosacra l radiculitis 40601675 94883 [facility] PAIN OFF[facility] [address] [facility] [place] [place] [address] 04/06/2014 14:07:44 04/06/2014 15:48:45 Lumbosacral spondylosis without myelopathy 52523137 Displaceme nt of lumbar intervertebral disc without myelopathy 75713120 Lumbosacra l radiculitis 41009226 59952 [facility] PAIN OFFICE [address] [place] [address] 04/27/2014 13:56:39 04/29/2014 21:26:25 Lumbosacral spondylosis without myelopathy 55548639 Displaceme nt of lumbar intervertebral disc without myelopathy 19054388 Lumbosacra l radiculitis 99385282 40062 [facility] PAIN OFF[facility] [address] [place] [address] 05/17/2014 11:13:27 05/17/2014 15:18:53 Lumbosacral spondylosis without myelopathy 88690962 Displaceme nt of lumbar intervertebral disc without myelopathy 54126736 Lumbosacra l radiculitis 69528390 14030 [facility] PAIN OFF[facility] [address] [place] [address] 08/10/2014 15:17:32 08/16/2014 10:42:28 Lumbosacral spondylosis without myelopathy 46986950 Displaceme nt of lumbar intervertebral disc without myelopathy 20817736 Lumbosacra l radiculitis 51201692 01662 SV PAIN OFF[facility] [address] [place] [address] 09/28/2014 14:00:05 10/01/2014 10:50:12 Lumbosacral spondylosis without myelopathy 01389435 Displaceme nt of lumbar intervertebral disc without myelopathy 40689150 Lumbosacra l radiculitis 21146651 Enthesopat hy of hip region 34765747 Compressio n fracture of vertebral column 72664025 54794 Nani Baker MD PAIN OFFICE [address] [place] [address] 01/04/2016 10:22:33 01/12/2016 18:39:32 Lumbosacral spondylosis without myelopathy 42232157 M47.817 Displaceme nt of lumbar intervertebral disc without myelopathy 73681599 M51.26 Enthesopat hy of hip region 27817839 M76.9 11945 Nani Baker MD PAIN OFFICE [address] [facility] [place] [place] [address] 12/04/2016 09:35:15 01/11/2017 18:16:46 Lumbosacral spondylosis without myelopathy 96427887 M47.817 Displaceme nt of lumbar intervertebral disc without myelopathy 92569366 M51.26 Enthesopat hy of hip region 55925283 M76.9 21074 Nani Baker MD [facility] PAIN OFFICE [address] [facility] [place] [place] [address] 02/23/2017 14:52:43 02/25/2017 15:20:57 Displacement of lumbar intervertebral disc without myelopathy 84442029 M51.26 Lumbosacra l radiculitis 73208057 M54.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 43952930 M47.817 30803 Nani Baker MD PAIN OFFICE [address] [place] [address] 03/17/2017 13:04:51 03/19/2017 11:14:52 Displacement of lumbar intervertebral disc without myelopathy 43852272 M51.26 Lumbosacra l radiculitis 16482364 M54.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 01960106 M47.817 40108 Nani Baker MD PAIN OFFICE [address] [place] [address] 03/31/2017 09:22:04 04/01/2017 13:37:43 Lumbosacral radiculitis 81198935 M54.17 Displaceme nt of lumbar intervertebral disc without myelopathy 87153413 M51.26 Lumbosacra l spondylosis without myelopathy 49076811 M47.817 63177 Nani Baker MD PAIN OFFICE [address] [facility] [place] [address] 04/24/2017 08:50:47 04/24/2017 13:41:37 Lumbosacral radiculitis 03976099 M54.17 Displaceme nt of lumbar intervertebral disc without myelopathy 22114513 M51.26 Lumbosacra l spondylosis without myelopathy 86112440 M47.817 50025 Nani Baker MD PAIN OFFICE [address] [facility] [place] [address] 05/19/2017 14:06:27 05/21/2017 11:21:34 Lumbosacral radiculitis 63687202 M54.17 Displaceme nt of lumbar intervertebral disc without myelopathy 68090061 M51.26 Lumbosacra l spondylosis without myelopathy 35762207 M47.817 83515 Nani Baker MD PAIN OFFICE [address] [place] [address] 10/07/2017 11:31:45 10/07/2017 14:36:01 Displacement of lumbar intervertebral disc without myelopathy 38646844 M51.26 Lumbosacra l radiculitis 62877414 M54.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 57144915 M47.817 87179 Nani Baker MD PAIN OFFICE [address] [place] [address] 11/09/2017 15:30:47 11/13/2017 08:33:20 Postherpetic neuralgia 3410038 B02.29 Lumbosacra l radiculitis 54933951 M54.17 Displaceme nt of lumbar intervertebral disc without myelopathy 06605261 M51.26 Lumbosacra l spondylosis without myelopathy 98937441 M47.817 35606 Nani Baker MD PAIN OFFICE [address] [place] [address] 11/25/2017 10:19:02 11/26/2017 10:26:57 Displacement of lumbar intervertebral disc without myelopathy 02538416 M51.26 Lumbosacra l radiculitis 40773924 M54.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 51627347 M47.817 85925 Nani Baker MD PAIN OFFICE [address] [place] [address] 01/26/2018 11:15:45 01/28/2018 09:21:50 Displacement of lumbar intervertebral disc without myelopathy 88249672 M51.26 Lumbosacra l radiculitis 61361555 M54.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 97206634 M47.817 67837 Nani Baker MD PAIN OFFICE [address] [place] [address] 03/22/2018 14:23:54 03/22/2018 16:13:18 Displacement of lumbar intervertebral disc without myelopathy 85798475 M51.26 Lumbosacra l radiculitis 46322229 M54.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 80367424 M47.817 96632 Nani Baker MD PAIN OFFICE [address] [place] [address] 04/07/2018 11:29:53 04/08/2018 10:07:21 Displacement of lumbar intervertebral disc without myelopathy 94264484 M51.26 Lumbosacra l radiculitis 24539846 M54.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 08282344 M47.817 31981 Nani Baker MD PAIN OFFICE [address] [place] [address] 04/20/2018 13:09:21 04/20/2018 15:17:00 Displacement of lumbar intervertebral disc without myelopathy 39169668 M51.26 Lumbosacra l radiculitis 54960420 M54.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 75009510 M47.817 87400 Nani Baker MD PAIN OFFICE [address] [place] [address] 05/10/2018 10:04:19 05/10/2018 11:17:05 Displacement of lumbar intervertebral disc without myelopathy 73955894 M51.26 Lumbosacra l radiculitis 63485089 M54.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 38246824 M47.817 16054 Nani Baker MD PAIN OFFICE [address] [place] [address] 05/19/2018 09:56:28 05/19/2018 15:41:12 Displacement of lumbar intervertebral disc without myelopathy 06589969 M51.26 Lumbosacra l radiculitis 17035965 M54.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 74382947 M47.817 95025 Nani Baker MD PAIN OFFICE [address] [facility] [place] [address] 05/26/2018 13:50:26 05/26/2018 15:01:39 Compression fracture of vertebral column 60230209 M48.50XA Lumbosacra l radiculitis 19337641 M54.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 72694935 M47.817 Displaceme nt of lumbar intervertebral disc without myelopathy 31858558 M51.26 21374 Nani Baker MD PAIN OFFICE [address] [facility] [place] [address] 06/30/2018 13:04:08 06/30/2018 15:53:01 Compression fracture of vertebral column 77657119 M48.50XA Lumbosacra l radiculitis 39391283 M54.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 54322196 M47.817 Displaceme nt of lumbar intervertebral disc without myelopathy 47169627 M51.26 42689 Nani Baker MD PAIN OFFICE [address] [facility] [place] [place] [address] 02/18/2019 11:22:38 02/24/2019 16:59:49 Displacement of lumbar intervertebral disc without myelopathy 00454931 M51.26 Lumbosacra l radiculitis 48500811 M54.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 14140741 M47.817 32745 Nani Baker MD PAIN OFFICE [address] [facility] [place] [place] [address] 03/16/2019 09:37:32 03/18/2019 15:35:03 Displacement of lumbar intervertebral disc without myelopathy 32299423 M51.26 Lumbosacra l radiculitis 65924909 M54.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 34655015 M47.817 93143 Nani Baker MD SV PAIN OFFICE [address] [place] [address] 04/27/2019 13:01:33 04/29/2019 16:03:44 Displacement of lumbar intervertebral disc without myelopathy 65512135 M51.26 Lumbosacra l radiculitis 05513890 M54.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 70732095 M47.817 23649 Nani Baker MD SV PAIN OFFICE [address] [place] [address] 06/29/2019 11:44:47 06/29/2019 14:05:58 Displacement of lumbar intervertebral disc without myelopathy 86901177 M51.26 Lumbosacra l radiculitis 37358594 M54.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 20974839 M47.817 22470 Nani Baker MD SV PAIN OFFICE [address] [place] [address] 08/08/2019 10:52:11 08/08/2019 11:32:02 Displacement of lumbar intervertebral disc without myelopathy 66921067 M51.26 Lumbosacra l radiculitis 53344061 M54.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 74895898 M47.817 62682 Nani Baker MD SV PAIN OFFICE [address] [place] [address] 10/24/2019 11:08:07 10/24/2019 11:23:30 Displacement of lumbar intervertebral disc without myelopathy 87376854 M51.26 Lumbosacra l radiculitis 03732101 M54.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 68673517 M47.817 75035 Nani Baker MD SV PAIN OFFICE [address] [place] [address] 10/25/2019 13:58:37 10/27/2019 10:16:27 Displacement of lumbar intervertebral disc without myelopathy 34738511 M51.26 Lumbosacra l radiculitis 47485368 M54.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 17896601 M47.817 17684 Nani Baker MD PAIN OFFICE [address] [employer] [place] [address] 11/24/2019 09:33:21 11/24/2019 09:59:39 Displacement of lumbar intervertebral disc without myelopathy 67576449 M51.26 Lumbosacra l radiculitis 48763194 M54.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 53156540 M47.817 16003 Nani Baker MD SV PAIN OFFICE [address] [employer] [address] [facility] [place] [address] 02/08/2020 08:30:06 02/08/2020 09:36:12 Displacement of lumbar intervertebral disc without myelopathy 74672016 M51.26 Lumbosacra l radiculitis 54528501 M54.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 26050096 M47.817 66807 Nani Baker MD PAIN OFFICE [address] [facility] [place] [address] 03/13/2020 14:47:56 03/13/2020 16:08:29 Displacement of lumbar intervertebral disc without myelopathy 57914894 M51.26 Lumbosacra l radiculitis 54168375 M54.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 52313944 M47.817 88412 Nani Baker MD SV PAIN OFFICE [address] [facility] [place] [address] 05/02/2020 09:37:41 05/02/2020 09:45:38 Displacement of lumbar intervertebral disc without myelopathy 43738478 M51.26 Lumbosacra l radiculitis 26156788 M54.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 18455494 M47.817 12099 Nani Baker MD PAIN OFFICE [address] [facility] [place] [address] 06/13/2020 09:22:04 06/13/2020 13:57:59 Displacement of lumbar intervertebral disc without myelopathy 25884127 M51.26 Lumbosacra l radiculitis 05949708 M54.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 05152789 M47.817 90589 Nani Baker MD PAIN OFFICE [address] [place] [address] 08/02/2020 14:05:18 08/02/2020 14:11:48 Displacement of lumbar intervertebral disc without myelopathy 39118802 M51.26 Lumbosacra l radiculitis 91055548 M54.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 06809774 M47.817 79529 Nani Baker MD PAIN OFFICE [address] [place] [address] 09/12/2020 10:50:25 09/12/2020 16:08:53 Displacement of lumbar intervertebral disc without myelopathy 55589472 M51.26 Lumbosacra l radiculitis 55113769 M54.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 90431268 M47.817 43890 Nani Baker MD PAIN OFFICE [address] [place] [address] 11/09/2020 11:12:28 11/14/2020 11:32:15 Displacement of lumbar intervertebral disc without myelopathy 00089795 M51.26 Lumbosacra l radiculitis 27977022 M54.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 31113125 M47.817 Health Concerns Section Related Observation LastModified by Organization Detai ls LastModified Time None Recorded Concern Status LastModified by Organization Details LastModified Time None Recorded Advance Directives Directive None Recorded Payers Encounter Date Sequence Insurance Name Policy Number Policy Richardson Covered Member ID Richardson Member ID Guarantor Name 05/02/2020 1 [facility] - DOS PRIOR TO 2022 - DUAL ELIGIBLE (MEDICARE REPLACEMENT/ADV ANTAGE - HMO) Tova Lopez [id number] Tova Lopez 06/13/2020 1 [facility] - DOS PRIOR TO 2022 - DUAL ELIGIBLE (MEDICARE REPLACEMENT/ADV ANTAGE - HMO) Tova Lopez [id number] Tova Lopez 08/02/2020 1 [facility] - DOS PRIOR TO 2022 - DUAL ELIGIBLE (MEDICARE REPLACEMENT/ADV ANTAGE - HMO) Tova Lopez [id number] Tova Lopez 09/12/2020 1 [facility] - DOS PRIOR TO 2022 - DUAL ELIGIBLE (MEDICARE REPLACEMENT/ADV ANTAGE - HMO) Tova Lopez [id number] Tova Lopez 11/09/2020 1 [facility] - DOS PRIOR TO 2022 - DUAL ELIGIBLE (MEDICARE REPLACEMENT/ADV ANTAGE - HMO) Tova Lopez [id number] Tova Lopez Notes Date Note Type Note [...] or bowel incontinence. Nani Baker MD [address] [facility] , [address], [place], [address], [facility] Pain Management 05/07/2020 11:11:41 06/13/2020 text/html She is here for a lumbar epidural steroid injection under fluoroscopic guidance. She has stopped Xarelto for the procedure. Nani Baker MD [address] [facility] , [address], [place], [address], [facility] Pain Management 06/13/2020 15:54:04 08/02/2020 text/html This [...] a cast . She is going to [place] for a trip to see her sons. Nani Baker MD [address] [facility] , [address], [place], [address], [facility] - Pain Management 08/10/2020 09:32:56 09/12/2020 text/html She is here for a lumbar epidural steroid injection under fluoroscopic guidance. She has stopped Xarelto for the procedure.She is S/P Fall at home with right wrist injury Nani Baker MD [address] [facility] , [address], [place], [address], [facility] - Pain Management 09/12/2020 16:20:02 11/09/2020 text/html This is a follow up . She states she has recently fallen at home and has increasing low back pain. She had X-rays done at [facility] which shows multiple compression fractures L1, L2 and L4 with an increasing compression fracture at L4 which appears new. She states her primary care physician is arranging for her to have a vertebroplasty done. She states she is pretty bed ridden due to pain. She has no history of bladder or bowel incontinence. Nani Baker MD [address] [facility] , [address], [place], [address], [facility] Pain Management 11/14/2020 15:46:05 OBGyn Episode No OBEpisode recorded.
--- OUTSIDE RECORDS SUMMARY | 2024-09-01 15:15 | XMS_ITS ---
Author Organization [facility] Address [address] [place] [address] Care Team Providers Care Cutter Barrel Drum Name Role Phone Migration, Provider Unavailable [phone] REASON FOR VISIT EMR-[facility] Medications Medication SIG (Take, Route, Fr equency, Duration) Notes Start Date End Date Status Eliquis 5 MG TAKE 1 TABLET TWICE A DAY Oral Eliquis 201605/24/2017 Active Encounters Encounter Location Date Provider Diagnosis [address] [address] 05/17/2023 Provider Migration Plan Of Treatment No Information Progress Notes * MARRY HYATTDOB:1945 (79 yo F)Acc No.[id number]:05/17/2023 Patient:?MARRY HYATT :1945???Age:78 Y???Sex:Female Address:[place], [address] Subjective: * Chief Complaints: * ???EMR-[facility] * Medical History:? * Surgical History:? * [...]
--- OUTSIDE RECORDS SUMMARY | 2024-09-01 15:15 | XMS_ITS ---
Author Organization [facility] Address [address] [place] [address] Care Team Providers Care Patient Financial Counselor Name Role Phone Migration, Provider Unavailable [phone] REASON FOR VISIT [facility] Encounters Encounter Location Date Provider Diagnosis [address] [address] 05/16/2023 Provider Migration Plan Of Treatment No Information Progress Notes * OLENAMIKEBERTHADOB:1945 (79 yo F)Acc No.[id number]:05/16/2023 Patient:?MARRY HYATT :1945???Age:78 Y???Sex:Female Address:[place], [address] Subjective: * Chief Complaints: * ???EMR-[facility] * Medical History:? * Surgical History:? * Hospitalization/Major Diagno stic Procedure:? * Medications:? Objective: * Vitals:? * Physical Examination:? Assessment: Plan: * Treatment: * Procedure Codes:? * * Date:?
--- OUTSIDE RECORDS SUMMARY | 2024-09-01 15:15 | XMS_ITS | Patient Health Record ---
Author Organization [facility] Address [address] [place] [address] Support Name Relationship Address Phone MARRY HYATT Guarantor Unknown [phone] Reason For Referral No Information Plan Of Treatment No Information
== END 2024-09-01 12:58 | disposition home or self-care (01) ==
PROVIDERS: PCP Nurse Practitioner Family; Visit Provider Nurse Practitioner Family
DX: R51.9 Headache, unspecified (principal)

== ENCOUNTER → 2024-09-01 11:40 | Outpatient (BNVA) | payer OTHER, SELFPAY | PROVIDERS: PCP Nurse Practitioner Family; Visit Provider Nurse Practitioner Family | DX: R51.9 Headache, unspecified (principal) | CPT/HCPCS: 99212 ==

== ENCOUNTER 2024-09-22 14:10 | Outpatient (AMB) | payer OTHER, SELFPAY ==
--- NOTE | 2024-09-22 14:48 | MHC.OFFWIV ---
Intake Vital Signs 09/22/24 14:57 Weight 106 lb BP 122/78 Blood Pressure Location Lt brachial Position Sitting Pulse 94 Pulse Source Pulse Oximeter Pulse Oximetry (%) 93 Oxygen Delivery Method Room Air Intake Visit Reasons: EP-lower back pain Intake Note: Patient here because she had a fall at a hospital about 2 weeks ago and is now having lower back pain. Patient Tobacco Use Status: Current everyday Tobacco user Allergies Cephalosporins [CEPHALOSPORINS] Allergy (Unknown, Verified 09/01/24 12:03) UNKNOWN gabapentin [GABAPENTIN] Allergy (Unknown, Verified 09/01/24 12:03) UNKNOWN mirtazapine [From REMERON] Allergy (Unknown, Verified 09/01/24 12:03) UNKNOWN naproxen Allergy (Unknown, Verified 09/01/24 12:03) UNKNOWN tramadol Allergy (Unknown, Verified 09/01/24 12:03) UNKNOWN bupropion [From WELLBUTRIN] Adverse Reaction (Unknown, Verified 09/01/24 12:03) Shaky Do you need a note to return to daycare/school/sports/work: No HPI HPI Comments History of Present Illness Details History of Present Illness - The patient is a 79-year-old female presenting with low back pain following a syncopal episode. - Approximately two weeks ago, she fainted after receiving distressing news about her sister's , resulting in a fall where she landed on a concrete floor. - Initial discomfort was not significant, but pain developed later and is localized to the right low back, primarily bothering her during certain activities. - The pain is non-radiating and does not extend into the legs or buttocks. She denies any excretory control issues. - She has a history of sciatica that was previously severe but resolved with medical treatment, and she has tried Tylenol and home therapy without significant relief. Physical Exam General: Cooperative, healthy appearing, comfortable, no acute distress and well developed Orientation: Patient oriented x3 Limitations: No limitations Head: Normal to inspection Ears: Hearing grossly normal bilaterally Nose: Normal External nose present Face and sinus: Normal facial exam Eyes: Appearance normal, both eyes and all related structures Neck: Normal visual inspection and Yes full ROM Respiratory: Normal respiratory effort and able to speak in complete sentences. Back/spine: no ttp cervical, thoracic or lumbar spine, ttp of right sided lumbar area Skin: No rashes or lesions noted Neuro: Patient oriented x3 Extremities: Normal to inspection [facility] Medical History (Updated 09/23/24 @ 10:27 by Radha West PA-C) Generalized headaches Nocturnal hypoxemia Basal cell carcinoma History of COVID-19 (~06/2021) Personal history of nicotine dependence Osteopenia (~2009) History of non-ST elevation myocardial infarction (NSTEMI) (~04/2016) COPD (chronic obstructive pulmonary disease) Depression with anxiety Brain aneurysm Bilateral carotid artery stenosis PAF (paroxysmal atrial fibrillation) (~04/2016) Atherosclerotic cardiovascular disease Surgical History History of inguinal hernia repair, bilateral (~2018) History of skin surgery History of arthroscopic surgery of shoulder (~2009) History of carpal tunnel release History of bladder surgery History of thumb surgery History of tubal ligation History of total hysterectomy Family History Father No problems noted. Mother No problems noted. Brother Stroke Social History Household Members: None Housing: Other Housing Other:: mobile home Are you a primary intensive care anaesthetist to a significant other at home: No Do you presently have visiting nurse or other home services: Yes ([facility] months) Comment: MEDICATED Patient Tobacco Use Status: Current everyday Tobacco user Tobacco use type: Cigarette Cigarette Packs Per Day: 0.5 Cigarettes Per Day: 7 Years Smoked: 68 e-Cigarette/Vaping Use: Former Use Substance Use Type: Marijuana Advance Directives Date on File: 08/03/23 service: No Current occupational status: retired and disabled Cognitive needs: No Hearing needs: No Vision needs: No Review of Systems Const All systems reviewed & are unremarkable except as noted in HPI and below Physical Exam Vital Signs: Last Vital Signs Pulse 94 09/22/24 14:57 BP 122/78 09/22/24 14:57 Pulse Ox 93 09/22/24 14:57 Oxygen Delivery Method Room Air 09/22/24 14:57 Assessment & Plan Assessment & Plan (1) Right-sided low back pain without sciatica: Code(s): M54.50 - Low back pain, unspecified Qualifiers: Chronicity: acute Qualified Code(s): M54.50 - Low back pain, unspecified Plan: The patient is diagnosed with low back pain due to a fall after a syncope episode. A lumbar spine x-ray is ordered to exclude fractures, though caution is advised against NSAIDs due to her blood thinner use. Ice, rest, and acetaminophen are recommended, alongside a cyclobenzaprine prescription for muscle tension relief. The importance of tracking symptoms and having the x-ray done if worsened was discussed, with the note that the order is valid for several months. Possible drowsiness and fall risk from cyclobenzaprine were noted. Follow-up is based on symptom progression. Pateint declined physical therapy referral at this time. Patient was informed and verbally consented to the use of an ambient scribe for clinic note documentation during this visit. Orders: Orders XR lumbar spine 4V min 09/22/24 M54.5 - Low back pain Medications: New cyclobenzaprine 5 mg PO Q8H PRN 20 tabs 0RF Muscle Spasm Coding Level of Care Code Est Pt Level 4 (68382) Diagnoses Acute right-sided low back pain without sciatica M54.50 Chronicity: acute
[2024-09-22 14:57] VITALS: BP 122/78; PULSE 94; O2SAT 93
--- OUTSIDE RECORDS SUMMARY | 2024-09-22 17:13 | XMS_ITS | Data Portability ---
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 Lab rapid SARS CoV 2 Ag, QL IA, respiratory specimen [address], [phone] 19:17:19 rapid flu (A+B) [address], [phone] 19:17:43 Referral None recorded. Procedures None recorded. Surgeries None recorded. Imaging None recorded. Medication Orders azithromyci n 250 mg tablet 2024 025 [facility]/Pharmacy #0319, [address] [place], [address], 12:50:09 azithromyci n 250 mg tablet 2024 025 [email or web address] [facility]/Pharmacy #0315, [address] [place], [address], 5 12:50:08 prednisone 20 mg tablet 2024 025 [email or web address] 84 [facility]/Pharmacy #0315, [address] [place], [address], 5 12:50:08 prednisone 20 mg tablet 2024 025 [facility]/Pharmacy #0315, [address] [place], [address], 5 12:50:57 prednisone 20 mg tablet 2024 025 [email or web address] [facility]/Pharmacy #0315, [address] [place], [address], 5 18:44:48 prednisone 20 mg tablet 2024 025 [facility]/Pharmacy #0315, [address] [place] [address], [address], 5 18:44:49 azithromyci n 500 mg tablet 2024 025 [email or web address] [facility]/Pharmacy #0315, [address] [place] [address], [address], 5 18:44:48 azithromyci n 250 mg tablet 2024 025 [facility]/Pharmacy #0315, [address] [place] [address], [address], 5 18:44:50 ketorolac 30 mg/mL injection solution 2023 024 [email or web address] [facility]/Pharmacy #0315, [address] [place] [address], [address], 4 17:51:25 ketorolac 15 mg/mL injection solution 2023 024 [email or web address] [facility]/Pharmacy #0315, [address] [place] [address], [address], 22:18:07 Patient TargetsNo targets recorded. Patient InstructionsNo instructions recorded. Reason for Referral None Reported. Results Created Date Observation Date Name Description Value Unit Range Abnormal Flag Note LastModifiedBy Organization Detail LastModifiedTime 07/26/1907/26/2024 rapid flu (A+B) Flu negati ve Not Available [facility] ed [address] [place] [address], [phone] 07/26/2024 18:42:19 07/26/1907/26/2024 rapid SARS CoV 2 Ag, QL IA, respi rator y speci men rapid SARS CoV 2 Ag, QL IA, respiratory specimen negati ve Not Available [facility] ed [address] [place] [address], [id number] 07/26/2024 18:42:18 Result Notes None recorded. Medical Equipment None Reported. Allergies Allergen ID Allergen Name Allergen Category Reaction Reaction Severity Criticality Documentation Date Start Date Code Code System Note Provider Name and Address Organization Details Recorded Time 18299 tramadol medicatio n Not available Not available Not available 07/26/2024 30579 RxNorm Not Available [facility] - production 16:15:34 [...] 4 18 /min 96 /min 152.4 cm 80968.1 2 g 98.1 [degF] 93 % 93 % 134 mm[Hg] 80 mm[Hg] Not Available [employer] 4 20:33:59 Date Recorded Body temperature Oxygen saturation Oxygen saturation in Arterial blood by Pulse oximetry Heart rate Respiratory rate Systolic blood pressure Diastolic blood pressure Provider Name and Address Organization Details Last Updated DateTime 4 98 [degF] 96 % 96 % 122 /min 16 /min 110 mm[Hg] 60 mm[Hg] Not Available [employer] 4 18:46:11 Date Recorded Body temperature Oxygen saturation Oxygen saturation in Arterial blood by Pulse oximetry Respiratory rate Heart rate Systolic blood pressure Diastolic blood pressure Provider Name and Address Organization Details Last Updated DateTime 4 98.5 [degF] 94 % 94 % 18 /min 77 /min 108 mm[Hg] 56 mm[Hg] Not Available [facility] - production 4 18:24:53 Date Recorded Body height Heart rate Body weight Body temperature Respiratory rate Oxygen saturation Oxygen saturation in Arterial blood by Pulse oximetry Systolic blood pressure Diastolic blood pressure Provider Name and Address Organization Details Last Updated DateTime 5 152.4 cm 101 /min 23134.3 44 g 98.4 [degF] 18 /min 97 % 97 % 125 mm[Hg] 84 mm[Hg] Not Available [employer] [facility] production 5 18:40:45 Date Recorded Heart rate Respiratory rate Body temperature Oxygen saturation Oxygen saturation in Arterial blood by Pulse oximetry Systolic blood pressure Diastolic blood pressure Provider Name and Address Organization Details Last Updated DateTime 5 81 /min 18 /min 97.9 [degF] 96 % 96 % 130 mm[Hg] 82 mm[Hg] Not Available [employer] 5 12:44:18 Social History None recorded. Functional Status None recorded. Mental Status None recorded. Family History Nothing Reported. Medical History No medical history recorded. Gynecological HistoryNo gynecological history recorded. Obstetrics History GPAL:G 0 P 0 0 0 0 Past Encounters Encounter ID Performer Location Encounter Start Date Encounter Closed Date Diagnosis/Indication Diagnosis SNOMED-CT Code Diagnosis ICD10 Code Diagnosis Note [id number] Tori Calzada MD [facility] [address] [place] [id number] 11/30/2023 12:30:07 11/30/2023 21:50:24 Chronic low back pain 861218467 M54.50 [id number] Edd Cat MD [facility] [address] [place] [id number] 12/11/2023 20:33:57 12/12/2023 20:49:45 Chronic low back pain 090726242 M54.50 Reports acute-on-c hronic low back pain in the setting of malfunctio ca spinal cord stimulator . No new symptomato logy. Requesting pain control. Plan for ketorolac x1 (given report of Xarelto). Recommende d close follow-up with primary surgeon. [id number] Shawna Watts MD [facility] [address] [place] [phone] 12/13/2023 17:25:05 12/14/2023 14:46:05 Chronic low back pain 809498454 M54.50 Evaluation in the field was performed by my lead operator colleague, as noted above, I provided real-time [...] shortness of breath, cough, chest pain, fever. [id number] Morgan Curtis MD [facility] [address] [place] [id number] 01/12/2024 18:24:51 01/13/2024 12:27:40 Constipation 10750982 K59.00 [id number] Mirza De Leon MD [facility] [address] [place] [id number] 07/26/2024 18:40:40 07/27/2024 10:40:18 Acute exacerbation of chronic obstructive pulmonary disease 308438325 J44.1 Symptoms c/w COPD exacerbati on; worsening SOB and sputum production . Negative flu/COVID. Will treat with Z-pack and Prednisone burst similar to prior episodes. Discussed red flag signs for which to seek higher level of care. [id number] Frank Vuong MD [facility] [address] [place] [phone] 08/03/2024 12:44:16 08/03/2024 15:59:11 Acute exacerbation of chronic obstructive pulmonary disease 828541037 J44.1 Health Concerns Section Related Observation LastModified by Organization Detai ls LastModified Time None Recorded Concern Status LastModified by Organization Details LastModified Time None Recorded Advance Directives Directive None Recorded Payers Encounter Date Sequence Insurance Name Policy Number Policy Richardson Covered Member ID Richardson Member ID Guarantor Name 12/11/2023 1 [facility] [employer] ALLI[facility] - DOS ON OR AFTER 2022 - DUAL ELIGIBLE - ASSISTED OPTIONS AND ONE CARE (MEDICARE REPLACEMENT/ADV ANTAGE - HMO) Tova Lopez [id number] Tova Lopez 12/13/2023 1 [employer] - DOS ON OR AFTER 2022 - DUAL ELIGIBLE - ASSISTED OPTIONS AND ONE CARE (MEDICARE REPLACEMENT/ADV ANTAGE - HMO) Tova Lopez [id number] Tova Lopez 01/12/2024 1 [facility] [employer] - DOS ON OR AFTER 2022 - DUAL ELIGIBLE - ASSISTED OPTIONS AND ONE CARE (MEDICARE REPLACEMENT/ADV ANTAGE - HMO) Tova Lopez [id number] Tova Lopez 07/26/2024 1 [employer] ALLIANCE - DOS ON OR AFTER 2022 - DUAL ELIGIBLE - ASSISTED OPTIONS AND ONE CARE (MEDICARE REPLACEMENT/ADV ANTAGE - HMO) Tova Lopez [id number] Tova Lopez 08/03/2024 1 [employer]IANCE - DOS ON OR AFTER 2022 - DUAL ELIGIBLE - ASSISTED OPTIONS AND ONE CARE (MEDICARE REPLACEMENT/ADV ANTAGE - HMO) Tova Lopez [id number] Tova Lopez Notes Date Note Type Note Provider Name and Address Organization Details Recorded Time 12/11/2023 text/html [facility] Nurse Triage Notes (Marita [...] .................... .................... .................... .................... .................... .................... . Tourist Escort Note From Maribel Winslow: Sent to a [...] Back: unremarkable; Extremities: unremarkable; Skin: pink,warm, dry; [facility] consulted and orders Toradol 15mg as a one time dose. Toradol 15mg IM administered without incident. Pt states she will follow up with surgeon and PCP. Red flags discussed. Pt has no further questions. .................... .................... .................... .................... .................... .................... .................... . Disposition: Fulfilled Edd Cat MD [address] [facility],[address], [place], [address], [facility] 12/11/2023 22:18:20 12/13/2023 text/html [facility] Nurse Triage Notes (Maria Guadalupe [...] .................... .................... .................... .................... .................... .................... . Tourist Escort Note From Franca You: Community Tourist Escort Dash You SC6 dispatched to a [facility] for a 78 yof C/O back pain. [...] SOB, abd pain, N/V/D, or urinary S/S. [facility] consulted; she was instructed to follow up [...] . Disposition: Fulfilled Shawna Watts MD [address] [facility],[address], [place], [address], [facility] 12/13/2023 20:22:42 01/12/2024 text/html [facility] Nurse Triage Notes (Jeannie Snowden): Reason For Request: pain, pt experinecing numbmess in left hand, just had spinal device removed and has no appetite Chief Complaints: Dehydration PMH: COPD/Asthma, Heart Disease Allergies: Unknown Comments: [employer] verified the member's name//address and phone number. Member is a 78 yr old female PMH > chronic back pain > [place] 5-6 yrs ago, sepsis, COPD , stopped [...] .................... .................... .................... .................... .................... .................... . Tourist Escort Note From Maribel Winslow: Sent to a [...] site; Extremities: unremarkable; Skin: pink, warm, dry; C consulted and pt is advised to discontinue Oxycodone. Pt advised to continue taking Tylenol for pain, and follow up with surgeon tomorrow. Red flags discussed. Pt has no further questions. .................... .................... .................... .................... .................... .................... .................... . Disposition: Fulfilled Morgan Curtis MD [address] [place] [address],[address], [place], [address], [facility] 01/13/2024 07:44:23 07/26/2024 text/html [facility] Nurse Triage Notes (Maria Guadalupe Ayala - HAIDER): Reason For Request: Pt just woke up and is feeling extremely ill, pt has no strength. Pt states she has cold symptoms that are not improving Chief Complaints: Weakness, Fatigue, Common cold symptoms, Cough PMH: COPD/Asthma, Coronary Artery Disease, Arrhythmias (e.g., Atrial Fibrillation), Hyperlipidemia, Myocardial Infarction PMH Reviewed at 07/26/2024 - 16:19 Allergies Reviewed at 07/26/2024 - 16:19 Comments: Patient calling in to place a [...] MRI. She would like to be evaluated. Tourist Escort Organization Information for Shital Devine DIANEFlorianaudrey Legal Name: [employer]? ? Address: [address] [place] [address], Mat Cutter: Xavier Garcia MD [place] No.: [id number] Tourist Escort POC Test Results from [facility] DIANE Rapid COVID antigen (18:34:14) COVID: - Attachments uploaded as part of this test result can be found under Documents section. Rapid influenza antigen (18:34:15) Flu: - .................... .................... .................... .................... .................... .................... .................... . Tourist Escort Note From Devine Jenniferjeremy: BOLA makes pt contact. She is standing in her kitchen wearing her pajamas and heating up a cup of coffee in the microwave. She is generally well-appearing and smells of fresh cigarette smoke. She makes eye contact and invites ELAINA to sit down. She sounds congested when [...] and down last night, but she slept [id number] today. She became concerned w/ the fatigue [...] and a Z-pietro when she gets sick. [facility] obtains vital signs and pt is assessed. Lung sounds reveal expiratory wheezes in the apices and clear sounds in the remaining lobes. Remaining physical exam is unremarkable. [facility] contacts [facility] and discusses the above. [facility] orders 40mg prednisone and 500mg azithromycin PO and calls in prescription for the pt. [facility] administers all medications and informs pt of red flags s/s. She thanks [facility] for coming. [facility] is clear. Report completed by ALEJO Devine [id number]. [facility] Lab Orders: rapid SARS CoV 2 Ag, QL IA, respiratory specimen: Performed rapid flu (A+B): Performed [facility] Medication Orders: prednisone 20 mg tablet: Administered azithromycin 500 mg tablet: Administered Comment: 2x 250mg tabs .................... .................... .................... .................... .................... .................... .................... . [facility] Consulted: Danie De Leon.................. .................... .................... .................... .................... .................... .................... . Disposition: Fulfilled Mirza De Leon MD [address] [facility],[address], [place], [address], [facility] 07/26/2024 20:20:55 08/03/2024 text/html [facility] Nurse Triage [...] Atrial Fibrillation), Hyperlipidemia, Myocardial InfarctionPMH Reviewed at 08/03/2024:18Allergies Reviewed at 08/03/2024:18Comments: Patient calling in to place a referral, [...] .................... .................... .................... .................... .................... .................... . Tourist Escort Note From Eduardo Rascon: Dispatched to the [...] with slight wheezing and right sided rhonchi. [facility] consulted. Pt given 40mg PO prednisone and 500mg PO Azithromycin. Scripts called into preferred pharmacy. Red flags discussed. ALL times are approx. [facility] Medication Orders: azithromycin 250 mg tablet: Administered prednisone 20 mg tablet: Administered .................... .................... .................... .................... .................... .................... .................... . [facility] Consulted: Frank Vuong .................... .................... .................... .................... .................... .................... .................... . Disposition: Fulfilled Frank Vuong MD [address] [facility],[address], [place], [address], [employer] 08/03/2024 13:20:37 OBGyn Episode No OBEpisode recorded.
--- OUTSIDE RECORDS SUMMARY | 2024-09-22 17:13 | XMS_ITS | Data Portability ---
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 She is on Xarelto and needs to stop the medication three days prior to the injection per anticoagulation guidelines. Her ring spinner states she can stop the medication for [...] booked after insurance approval. 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 She is on Xarelto and needs to stop the medication three days prior to the injection per anticoagulation guidelines. Her ring spinner states she can stop the medication for [...] By Organization Details Last Modified Time 05/02/2020 [id number] She was advised to continue with activities [...] care. [email or web address] Not available 05/02/2020 09:45:02 06/13/2020 [id number] She was advised to continue with activities as tolerated and benefits of smoking cessation were reviewed with her. [email or web address] Not available 06/13/2020 10:02:50 08/02/2020 [id number] She was advised to continue with activities [...] care. [email or web address] Not available 08/02/2020 14:07:27 09/12/2020 [id number] She was advised to continue with activities as tolerated and benefits of smoking cessation were reviewed with her. [email or web address] Not available 09/12/2020 16:05:23 11/09/2020 [id number] She was advised to continue with activities [...] spine No observ ation record ed. eron [facility] [address] [place], [address], 11/14/2020 11:33:18 Result Notes None recorded. Problems Name Problem SNOMED Code Status Onset Date Resolution Date Notes Provider Name and Address Organization Details Recorded Time Lumbosacral spondylosis without myelopathy [id number] Chidi mas MD [address] [facility] , [address], [place], [address], [place] [facility] 6 18:39:02 Displacement of lumbar intervertebral disc without myelopathy 98406809 Chidi mas MD [address] , [address], [place], [address], [place] [facility] 6 18:39:03 Enthesopathy of hip region 44390826 Chidi mas MD [address] , [address], [place], [address], [place] [facility] 6 18:39:03 Compression fracture of vertebral column 89807347 Chidi mas MD [address] , [address], [place], [address], [place] [facility] 6 18:29:06 Postherpetic neuralgia 8488998 Active Nani mas MD [address] , [address], [place], [address], [place] [facility] 8 16:02:07 Lumbosacral radiculitis 69769601 Active Nani mas MD [address] , [address], [place], [address], [place] [facility] 6 18:29:06 Problem Notes None recorded. Procedures Surgical History Date Name Laterality Status Provider Name and Address Organization Details Recorded Time 09/13/19 21 Lumbar Epidural steroid injection under fluoroscopic guidance completed Nani Baker MD [address] , [address], [place], [address], [place] [facility] 09/12/2020 16:06:14 06/13/19 21 Lumbar Epidural steroid injection under fluoroscopic guidance completed Nani Baker MD [address] , [address], [facility] [place], [address], [place] [facility] 06/13/2020 10:03:35 03/13/20 20 Lumbar Epidural steroid injection under fluoroscopic guidance completed Nani Baker MD [address] , [address], [place], [address], [place] [facility] 03/13/2020 15:36:36 10/25/19 20 Lumbar Epidural steroid injection under fluoroscopic guidance completed Nani Baker MD [address] , [address], [place], [address], [place] [facility] 10/27/2019 09:47:43 06/29/19 20 Lumbar Epidural steroid injection under fluoroscopic guidance completed Nani Baker MD [address] , [address], [place], [address], [place] [facility] 06/29/2019 13:58:52 03/16/20 19 Lumbar Epidural steroid injection under fluoroscopic guidance completed Nani Baker MD [address] , [address], [place], [address], [place] [facility] 03/18/2019 15:32:17 05/19/20 18 Lumbar Epidural steroid injection under fluoroscopic guidance completed Nani Baker MD [address] , [address], [place], [address], [place] [facility] 05/19/2018 15:37:32 04/20/20 18 Greater Trochanteric Bursa Steroid Injection completed Nani Baker MD [address] , [address], [place], [address], [place] [facility] 04/20/2018 14:17:28 04/07/20 18 Greater Trochanteric Bursa Steroid Injection completed Nani Baker MD [address] , [address], [place], [address], [place] [facility] 04/07/2018 13:33:14 01/27/20 18 Greater Trochanteric Bursa Steroid Injection completed Nani Baker MD [address] , [address], [place], [address], [place] [facility] 01/28/2018 08:59:37 11/26/19 18 Fluoroscopic Guided Lumbar Facet Steroid Injections of levels completed Nani Baker MD [address] , [address], [place], [address], [place] [facility] 11/26/2017 10:21:29 10/08/19 18 Lumbar Epidural steroid injection under fluoroscopic guidance completed Nani Baker MD [address] , [address], [place], [address], [place] [facility] 10/07/2017 13:42:01 05/19/20 17 Greater Trochanteric Bursa Steroid Injection completed Nani Baker MD [address] , [address], [place], [address], [place] [facility] 05/21/2017 11:06:00 03/17/20 17 Lumbar Epidural steroid injection under fluoroscopic guidance completed Nani Baker MD [address] , [address], [place], [address], [place] [facility] 03/17/2017 13:42:48 04/06/20 14 Lumbar Epidural steroid injection under fluoroscopic guidance completed Nani Baker MD [address] , [address], [place], [address], [place] [facility] 04/06/2014 15:46:14 01/20/20 14 Radiofrequency of Lumbar/Sacral medial branches supplying the facets under fluoroscopic guidance completed Nani Baker MD [address] , [address], [place], [address], [place] [facility] 01/20/2014 11:09:57 12/27/19 14 Radiofrequency of Lumbar/Sacral medial branches supplying the facets under fluoroscopic guidance completed Nani Baker MD [address] , [address], [place], [address], [place] [facility] 12/28/2013 11:18:21 11/08/19 14 Fluoroscopic Guided Lumbar Facet Steroid Injections of levels completed Nani Baker MD [address] , [address], [place], [address], [place] [facility] 11/08/2013 15:17:09 10/25/19 14 Fluoroscopic Guided Lumbar Facet Steroid Injections of levels completed Nani Baker MD [address] , [address], [place], [address], [place] [facility] 10/27/2013 09:17:13 08/01/19 14 Lumbar Epidural steroid injection under fluoroscopic guidance completed Nani Baker MD [address] , [address], [place], [address], [place] [facility] 08/01/2013 14:24:11 04/05/20 13 Fluoroscopic Guided Lumbar Facet Steroid Injections of levels completed Nani Baker MD [address] , [address], [place], [address], [place] [facility] 04/06/2013 09:16:32 03/23/20 13 Fluoroscopic Guided Lumbar Facet Steroid Injections of levels completed Nani Baker MD [address] , [address], [place], [address], [place] [facility] 03/25/2013 11:35:45 01/25/20 13 Lumbar Epidural steroid injection under fluoroscopic guidance completed Nani Baker MD [address] , [address], [place], [address], [place] [facility] 01/24/2013 16:24:03 10/19/19 13 Lumbar Epidural steroid injection under fluoroscopic guidance completed Nani Baker MD [address] , [address], [place], [address], [place] [facility] 10/19/2012 09:47:49 Other completed Nani Baker MD [address] , [address], [place], [address], [place] [facility] 11/08/2013 [...] LastModified Time 10/19/2020 XR, lumbar spine completed [address] [place], [address], 11/14/2020 11:33:18 Procedure Notes None recorded. Medical Equipment None Reported. Allergies Allergen ID Allergen Name Allergen Category Reaction Reaction Severity Criticality Documentation Date Start Date Code Code System Note Provider Name and Address Organization Details Recorded Time 71443 naproxen medicatio n Not available Not available Not available 02/23/2017 7258 RxNorm Armida mckeon, [place] [facility] 7 15:04:34 87677 clonidine medicatio n Not available Not available Not available 02/23/2017 2599 RxNorm Armida mckeon, [place] [facility] 7 15:04:42 97198 Wellbutri n medicatio n Not available Not available Not available 02/23/2017 24815 RxNorm Armida mckeon, [place] [facility] 7 15:05:01 51496 mirtazapi ne medicatio n Not available Not available Not available 02/23/2017 81961 RxNorm Armida mckeon, [place] [facility] 7 15:05:39 4741 Remeron medicatio n Not available Not available Not available 08/05/2012 46212 4 RxNorm Armida mckeon, [place] [facility] 3 14:22:46 4742 morphine medicatio n respirato ry distress Not available Not available 08/05/2012 7052 RxNorm Armida mckeon, [place] [facility] 4 10:46:06 5361 sulindac medicatio n arthralgi a (joint pain) Not available Not available 10/18/2012 14686 RxNorm Armida mckeon, [place] [facility] 3 14:30:10 6541 tramadol medicatio n headache Not available Not available 02/24/2013 70538 RxNorm [facility] mas [facility] [address], [facility] [place], [address] [facility] [place] [facility] 9 10:01:55 9401 Lyrica medicatio n headache Not available Not available 03/29/2014 66396 1 RxNorm Armida mckeon, [place] [...] Not Available Not Available Not Available Afluria 1634-3313(P F) 45 mcg (15 mcg x 3)/0.5 [...] Social History Question Answer Notes LastModified by [email or web address] ion Details LastModified Time Tobacco Smoking Status Former Smoker She is on a nicotine patch and states she has quit. [facility] Available [facility] 03/23/2020 03:16:11 What Is Your Level Of Alcohol Consumption? None [id number] Information not available 03/23/2020 Are You Currently Employed? Yes Disabled [id number] Information not available 03/23/2020 Which Illicit Or Recreational Drugs Have You Used? Marijuana [id number] Information not available 03/23/2020 Education 12 Information no t available 08/05/2012 Live Alone Or With Others? With Others Nephew Information not available 08/05/2012 Marital Status Informatio n not available 08/05/2012 What Was The Date Of Your Most Recent Tobacco Screening? 06/30/2018 [id number] Information not available 03/23/2020 How Much Tobacco Do You Smoke? 0.5 PPD [id number] Information not available 03/23/2020 Sex: Unknown Functional Status None recorded. Mental Status None recorded. Family History Nothing Reported. Medical History Condition Response Diabetes Y Anxiety Disorder Y Coronary Artery Disease Y Hepatitis C Y Arthritis Y High Cholesterol Y Cancer Y COPD Y Asthma Y Osteoporosis Y Gynecological HistoryNo gynecological history recorded. Obstetrics History GPAL:G 0 P 0 0 0 0 Past Encounters Encounter ID Performer Location Encounter Start Date Encounter Closed Date Diagnosis/Indication Diagnosis SNOMED-CT Code Diagnosis ICD10 Code Diagnosis Note [id number] Nnai Baker MD PAIN OFFICE [address] [facility] [address] [facility] [place] [address] 08/05/2012 13:21:37 08/05/2012 15:33:38 [id number] Nani Baker MD [facility] [address] [place] [address] 10/18/2012 14:16:54 10/18/2012 15:51:29 [id number] [facility] [address] [place] [address] 11/18/2012 10:11:02 11/18/2012 15:37:35 [id number] [facility] [address] [place] [address] 01/24/2013 13:25:53 01/24/2013 16:24:59 [id number] [facility] [address] [place] [address] 02/24/2013 10:57:59 02/25/2013 09:00:54 [id number] Nani Baker MD [facility] [address] [place] [address] 03/23/2013 13:53:07 03/23/2013 15:41:57 Lumbosacral spondylosis without myelopathy 11900922 Displaceme nt of lumbar intervertebral disc without myelopathy 28004742 [id number] [facility] [address] [place] [address] 04/05/2013 12:57:19 04/05/2013 15:43:47 Lumbosacral spondylosis without myelopathy 39672796 Displaceme nt of lumbar intervertebral disc without myelopathy 21547390 Lumbosacra l radiculitis 37436811 01518 [facility] [address] [place] [address] 05/04/2013 10:54:36 05/04/2013 15:05:24 Lumbosacral spondylosis without myelopathy 80727167 Displaceme nt of lumbar intervertebral disc without myelopathy 47234398 Lumbosacra l radiculitis 33590567 28075 [facility] [address] [place] [address] 07/27/2013 09:43:56 07/27/2013 11:42:54 Lumbosacral spondylosis without myelopathy 87525364 Displaceme nt of lumbar intervertebral disc without myelopathy 02678898 Lumbosacra l radiculitis 04790698 24812 [facility] [address] [place] [address] 08/01/2013 13:26:06 08/02/2013 10:33:30 Lumbosacral spondylosis without myelopathy 27307076 Displaceme nt of lumbar intervertebral disc without myelopathy 64926159 Lumbosacra l radiculitis 44190271 23699 [facility] [address] [facility] [place] [address] 08/30/2013 10:43:35 09/02/2013 09:22:59 Lumbosacral spondylosis without myelopathy 05079424 Displaceme nt of lumbar intervertebral disc without myelopathy 56408013 Lumbosacra l radiculitis 40686628 58310 [facility] [address] [facility] [place] [address] 10/06/2013 11:00:49 10/07/2013 11:11:22 Lumbosacral spondylosis without myelopathy 34938765 Displaceme nt of lumbar intervertebral disc without myelopathy 33842637 Lumbosacra l radiculitis 12518200 69064 [facility] [address] [facility] [place] [address] 10/24/2013 13:22:09 10/27/2013 09:18:15 Lumbosacral spondylosis without myelopathy 86953252 Displaceme nt of lumbar intervertebral disc without myelopathy 28579319 Lumbosacra l radiculitis 88650731 42876 [facility] [address] [facility] [place] [address] 11/07/2013 10:27:07 11/08/2013 14:06:31 Lumbosacral spondylosis without myelopathy 98232665 Displaceme nt of lumbar intervertebral disc without myelopathy 41550787 Lumbosacra l radiculitis 02644731 40818 [facility] [address] [facility] [place] [address] 11/29/2013 10:00:54 12/03/2013 16:50:45 Lumbosacral spondylosis without myelopathy 80914682 Displaceme nt of lumbar intervertebral disc without myelopathy 22131347 Lumbosacra l radiculitis 66580306 [id number] Armida Hubbard PAIN OFFICE [address] [facility] [place] [address] 12/26/2013 10:21:37 12/27/2013 15:19:55 Lumbosacral spondylosis without myelopathy 38020857 Displaceme nt of lumbar intervertebral disc without myelopathy 55226683 Lumbosacra l radiculitis 32492331 56450 [facility] [address] [facility] [place] [address] 01/17/2014 13:07:43 01/18/2014 15:46:33 Lumbosacral spondylosis without myelopathy 21972740 Displaceme nt of lumbar intervertebral disc without myelopathy 88734234 Lumbosacra l radiculitis 98747604 32455 [facility] [address] [facility] [place] [address] 01/19/2014 10:41:36 01/20/2014 11:12:44 Lumbosacral spondylosis without myelopathy 82303931 Displaceme nt of lumbar intervertebral disc without myelopathy 66498836 Lumbosacra l radiculitis 29141254 59775 [facility] [address] [facility] [place] [address] 02/21/2014 10:49:23 02/21/2014 11:45:38 Lumbosacral spondylosis without myelopathy 09706763 Displaceme nt of lumbar intervertebral disc without myelopathy 34805750 Lumbosacra l radiculitis 96858452 19980 [facility] [address] [facility] [place] [address] 03/29/2014 10:32:34 03/29/2014 11:28:43 Lumbosacral spondylosis without myelopathy 72131047 Displaceme nt of lumbar intervertebral disc without myelopathy 18841847 Lumbosacra l radiculitis 44750295 55271 [facility] [address] [facility] [place] [address] 04/06/2014 14:07:44 04/06/2014 15:48:45 Lumbosacral spondylosis without myelopathy 83066002 Displaceme nt of lumbar intervertebral disc without myelopathy 13839426 Lumbosacra l radiculitis 54299373 68474 [facility] [address] [place] [address] 04/27/2014 13:56:39 04/29/2014 21:26:25 Lumbosacral spondylosis without myelopathy 94368758 Displaceme nt of lumbar intervertebral disc without myelopathy 98923662 Lumbosacra l radiculitis 13901585 04521 [facility] [address] [place] [place] [address] 05/17/2014 11:13:27 05/17/2014 15:18:53 Lumbosacral spondylosis without myelopathy 53360769 Displaceme nt of lumbar intervertebral disc without myelopathy 76660833 Lumbosacra l radiculitis 31457037 76360 [facility] [address] [place] [address] 08/10/2014 15:17:32 08/16/2014 10:42:28 Lumbosacral spondylosis without myelopathy 21162046 Displaceme nt of lumbar intervertebral disc without myelopathy 97271730 Lumbosacra l radiculitis 94653925 99861 [facility] [address] [place] [address] 09/28/2014 14:00:05 10/01/2014 10:50:12 Lumbosacral spondylosis without myelopathy 90556188 Displaceme nt of lumbar intervertebral disc without myelopathy 39407314 Lumbosacra l radiculitis 03610720 Enthesopat hy of hip region 02634765 Compressio n fracture of vertebral column 21114866 [id number] Nani Baker MD PAIN OFFICE [address] [employer] [place] [address] 01/04/2016 10:22:33 01/12/2016 18:39:32 Lumbosacral spondylosis without myelopathy 76729687 M47.817 Displaceme nt of lumbar intervertebral disc without myelopathy 22915558 M51.26 Enthesopat hy of hip region 49791465 M76.9 [id number] Nani Baker MD PAIN OFFICE [address] [facility] [place] [address] 12/04/2016 09:35:15 01/11/2017 18:16:46 Lumbosacral spondylosis without myelopathy 77120344 M47.817 Displaceme nt of lumbar intervertebral disc without myelopathy 04839848 M51.26 Enthesopat hy of hip region 39520212 M76.9 [id number] Nani Baker MD [facility] [address] [facility] [place] [address] 02/23/2017 14:52:43 02/25/2017 15:20:57 Displacement of lumbar intervertebral disc without myelopathy 79482360 M51.26 Lumbosacra l radiculitis 77768836 M54.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 26065318 M47.817 [id number] Nani Baker MD PAIN OFFICE [address] [place] [address] 03/17/2017 13:04:51 03/19/2017 11:14:52 Displacement of lumbar intervertebral disc without myelopathy 16281654 M51.26 Lumbosacra l radiculitis 51361386 M54.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 79174527 M47.817 [id number] Nani Baker MD PAIN OFFICE [address] [place] [address] 03/31/2017 09:22:04 04/01/2017 13:37:43 Lumbosacral radiculitis 87297621 M54.17 Displaceme nt of lumbar intervertebral disc without myelopathy 15086103 M51.26 Lumbosacra l spondylosis without myelopathy 20528476 M47.817 [id number] Nani Baker MD PAIN OFFICE [address] [facility] [place] [address] 04/24/2017 08:50:47 04/24/2017 13:41:37 Lumbosacral radiculitis 84413960 M54.17 Displaceme nt of lumbar intervertebral disc without myelopathy 59326887 M51.26 Lumbosacra l spondylosis without myelopathy 69132274 M47.817 [id number] Nani Baker MD PAIN OFFICE [address] [facility] [place] [address] 05/19/2017 14:06:27 05/21/2017 11:21:34 Lumbosacral radiculitis 85533640 M54.17 Displaceme nt of lumbar intervertebral disc without myelopathy 92227395 M51.26 Lumbosacra l spondylosis without myelopathy 80551640 M47.817 [id number] Nani Baker MD PAIN OFFICE [address] [place] [address] 10/07/2017 11:31:45 10/07/2017 14:36:01 Displacement of lumbar intervertebral disc without myelopathy 48471968 M51.26 Lumbosacra l radiculitis 24991026 M54.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 12621105 M47.817 [id number] Nani Baker MD PAIN OFFICE [address] [place] [place] [address] 11/09/2017 15:30:47 11/13/2017 08:33:20 Postherpetic neuralgia 1114797 B02.29 Lumbosacra l radiculitis 77362319 M54.17 Displaceme nt of lumbar intervertebral disc without myelopathy 59767141 M51.26 Lumbosacra l spondylosis without myelopathy 75342695 M47.817 [id number] Nani Baker MD PAIN OFFICE [address] [place] [address] 11/25/2017 10:19:02 11/26/2017 10:26:57 Displacement of lumbar intervertebral disc without myelopathy 77695112 M51.26 Lumbosacra l radiculitis 21388836 M54.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 81552876 M47.817 [id number] Nani Baker MD PAIN OFFICE [address] [place] [address] 01/26/2018 11:15:45 01/28/2018 09:21:50 Displacement of lumbar intervertebral disc without myelopathy 49665845 M51.26 Lumbosacra l radiculitis 63057195 M54.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 12698248 M47.817 [id number] Nani Baker MD PAIN OFFICE [address] [place] [address] 03/22/2018 14:23:54 03/22/2018 16:13:18 Displacement of lumbar intervertebral disc without myelopathy 11443739 M51.26 Lumbosacra l radiculitis 43220675 M54.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 51407208 M47.817 [id number] Nani Baker MD PAIN OFFICE [address] [place] [address] 04/07/2018 11:29:53 04/08/2018 10:07:21 Displacement of lumbar intervertebral disc without myelopathy 37447144 M51.26 Lumbosacra l radiculitis 15459545 M54.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 40567837 M47.817 [id number] Nani Baker MD PAIN OFFICE [address] [place] [place] [address] 04/20/2018 13:09:21 04/20/2018 15:17:00 Displacement of lumbar intervertebral disc without myelopathy 50958724 M51.26 Lumbosacra l radiculitis 91879910 M54.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 57479612 M47.817 [id number] Nani Baker MD PAIN OFFICE [address] [place] [address] 05/10/2018 10:04:19 05/10/2018 11:17:05 Displacement of lumbar intervertebral disc without myelopathy 72060386 M51.26 Lumbosacra l radiculitis 18043516 M54.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 13115861 M47.817 [id number] Nani Baker MD PAIN OFFICE [address] [place] [address] 05/19/2018 09:56:28 05/19/2018 15:41:12 Displacement of lumbar intervertebral disc without myelopathy 39649348 M51.26 Lumbosacra l radiculitis 68100143 M54.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 51663512 M47.817 [id number] Nani Baker MD PAIN OFFICE [address] [address] [facility] [place] [address] 05/26/2018 13:50:26 05/26/2018 15:01:39 Compression fracture of vertebral column 51059944 M48.50XA Lumbosacra l radiculitis 87515972 M54.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 54606608 M47.817 Displaceme nt of lumbar intervertebral disc without myelopathy 08541653 M51.26 [id number] Nani Baker MD PAIN OFFICE [address] [address] [facility] [place] [address] 06/30/2018 13:04:08 06/30/2018 15:53:01 Compression fracture of vertebral column 06059244 M48.50XA Lumbosacra l radiculitis 21719878 M54.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 48109245 M47.817 Displaceme nt of lumbar intervertebral disc without myelopathy 70225208 M51.26 [id number] Nani Baker MD PAIN OFFICE [address] [address] [facility] [place] [address] 02/18/2019 11:22:38 02/24/2019 16:59:49 Displacement of lumbar intervertebral disc without myelopathy 20789252 M51.26 Lumbosacra l radiculitis 18186380 M54.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 46618527 M47.817 [id number] Nani Baker MD PAIN OFFICE [address] [address] [facility] [place] [address] 03/16/2019 09:37:32 03/18/2019 15:35:03 Displacement of lumbar intervertebral disc without myelopathy 65600715 M51.26 Lumbosacra l radiculitis 52637254 M54.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 43411629 M47.817 [id number] Nani Baker MD [facility] [address] [place] [address] 04/27/2019 13:01:33 04/29/2019 16:03:44 Displacement of lumbar intervertebral disc without myelopathy 14818309 M51.26 Lumbosacra l radiculitis 84518351 M54.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 18661905 M47.817 36046 Nani Baker MD [facility] [address] [place] [address] 06/29/2019 11:44:47 06/29/2019 14:05:58 Displacement of lumbar intervertebral disc without myelopathy 36650722 M51.26 Lumbosacra l radiculitis 93298981 M54.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 86547230 M47.817 [id number] Nani Baker MD [facility] [address] [place] [place] [address] 08/08/2019 10:52:11 08/08/2019 11:32:02 Displacement of lumbar intervertebral disc without myelopathy 28858243 M51.26 Lumbosacra l radiculitis 41642279 M54.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 29936149 M47.817 70450 Nani Baker MD [facility] [address] [place] [place] [address] 10/24/2019 11:08:07 10/24/2019 11:23:30 Displacement of lumbar intervertebral disc without myelopathy 24334649 M51.26 Lumbosacra l radiculitis 94445139 M54.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 02452558 M47.817 [id number] Nani Baker MD [facility] [address] [place] [address] 10/25/2019 13:58:37 10/27/2019 10:16:27 Displacement of lumbar intervertebral disc without myelopathy 29507389 M51.26 Lumbosacra l radiculitis 92831396 M54.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 99978997 M47.817 53487 Nani Baker MD PAIN OFFICE [address] [employer] [place] [address] 11/24/2019 09:33:21 11/24/2019 09:59:39 Displacement of lumbar intervertebral disc without myelopathy 28288387 M51.26 Lumbosacra l radiculitis 89013449 M54.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 48376807 M47.817 [id number] Nani Baker MD [facility] [address] [employer] [address] [facility] [place] [address] 02/08/2020 08:30:06 02/08/2020 09:36:12 Displacement of lumbar intervertebral disc without myelopathy 84252399 M51.26 Lumbosacra l radiculitis 41842247 M54.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 50113760 M47.817 [id number] Nani Baker MD PAIN OFFICE [address] [address] [facility] [place] [address] 03/13/2020 14:47:56 03/13/2020 16:08:29 Displacement of lumbar intervertebral disc without myelopathy 20706564 M51.26 Lumbosacra l radiculitis 65670215 M54.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 86546516 M47.817 [id number] Nani Baker MD [facility] [address] [address] [facility] [place] [address] 05/02/2020 09:37:41 05/02/2020 09:45:38 Displacement of lumbar intervertebral disc without myelopathy 25739760 M51.26 Lumbosacra l radiculitis 40049854 M54.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 11085868 M47.817 [id number] Nani Baker MD PAIN OFFICE [address] [address] [facility] [place] [address] 06/13/2020 09:22:04 06/13/2020 13:57:59 Displacement of lumbar intervertebral disc without myelopathy 39018112 M51.26 Lumbosacra l radiculitis 76578902 M54.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 15599104 M47.817 [id number] Nani Baker MD PAIN OFFICE [address] [address] [place] [address] 08/02/2020 14:05:18 08/02/2020 14:11:48 Displacement of lumbar intervertebral disc without myelopathy 67793445 M51.26 Lumbosacra l radiculitis 22424536 M54.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 59889199 M47.817 [id number] Nani Baker MD PAIN OFFICE [address] [address] [address] [place] [address] 09/12/2020 10:50:25 09/12/2020 16:08:53 Displacement of lumbar intervertebral disc without myelopathy 27501701 M51.26 Lumbosacra l radiculitis 27074564 M54.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 03434964 M47.817 [id number] Nani Baker MD PAIN OFFICE [address] [place] [place] [address] 11/09/2020 11:12:28 11/14/2020 11:32:15 Displacement of lumbar intervertebral disc without myelopathy 57887969 M51.26 Lumbosacra l radiculitis 31450343 M54.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 50960764 M47.817 Health Concerns Section Related Observation LastModified by Organization Detai ls LastModified Time None Recorded Concern Status LastModified by Organization Details LastModified Time None Recorded Advance Directives Directive None Recorded Payers Encounter Date Sequence Insurance Name Policy Number Policy Richardson Covered Member ID Richardson Member ID Guarantor Name 05/02/2020 1 [facility] - DOS PRIOR TO 2022 - DUAL ELIGIBLE (MEDICARE REPLACEMENT/ADV ANTAGE - HMO) Tova Lopez [id number] Tova Lopez 06/13/2020 1 [facility] [employer] - DOS PRIOR TO 2022 - DUAL ELIGIBLE (MEDICARE REPLACEMENT/ADV ANTAGE - HMO) Tova Lopez [id number] Tova Lopez 08/02/2020 1 [facility] [employer] - DOS PRIOR TO 2022 - DUAL ELIGIBLE (MEDICARE REPLACEMENT/ADV ANTAGE - HMO) Tova Lopez [id number] Tova Lopez 09/12/2020 1 [facility] [employer] - DOS PRIOR TO 2022 - DUAL ELIGIBLE (MEDICARE REPLACEMENT/ADV ANTAGE - HMO) Tova Lopez [id number] Tova Lopez 11/09/2020 1 [facility] [employer] - DOS PRIOR TO 2022 - DUAL ELIGIBLE (MEDICARE REPLACEMENT/ADV ANTAGE - HMO) Tova Lopez [id number] Tova Lopez Notes Date Note Type Note [...] or bowel incontinence. Nani Baker MD [address] [facility] , [address], [place], [address], [facility] Pain Management 05/07/2020 11:11:41 06/13/2020 text/html She is here for a lumbar epidural steroid injection under fluoroscopic guidance. She has stopped Xarelto for the procedure. Nani Baker MD [address] [facility] [address] , [address], [place], [address], [facility] Pain Management 06/13/2020 15:54:04 08/02/2020 text/html This [...] a cast . She is going to [place] for a trip to see her sons. Nani Baker MD [address] [facility] , [address], [place], [address], [facility] - Pain Management 08/10/2020 09:32:56 09/12/2020 text/html She is here for a lumbar epidural steroid injection under fluoroscopic guidance. She has stopped Xarelto for the procedure.She is S/P Fall at home with right wrist injury Nani Baker MD [address] [facility] , [address], [place], [address], [facility] - Pain Management 09/12/2020 16:20:02 11/09/2020 text/html This is a follow up . She states she has recently fallen at home and has increasing low back pain. She had X-rays done at [facility] which shows multiple compression fractures L1, L2 and L4 with an increasing compression fracture at L4 which appears new. She states her primary care physician is arranging for her to have a vertebroplasty done. She states she is pretty bed ridden due to pain. She has no history of bladder or bowel incontinence. Nani Baker MD [address] , [address], [place], [address], [facility] Pain Management 11/14/2020 15:46:05 OBGyn Episode No OBEpisode recorded.
--- OUTSIDE RECORDS SUMMARY | 2024-09-22 17:13 | XMS_ITS ---
Author Organization [facility] Address [address] [place] [address] Care Team Providers Care Statistics Intern Name Role Phone Migration, Provider Unavailable [phone] REASON FOR VISIT [facility] Encounters Encounter Location Date Provider Diagnosis [address] [address] 05/16/2023 Provider Migration Plan Of Treatment No Information Progress Notes * OLENAMIKEBERTHADOB:1945 (79 yo F)Acc No.[id number]:05/16/2023 Patient:?MARRY HYATT :1945???Age:78 Y???Sex:Female Address:[place], [address] Subjective: * Chief Complaints: * ???[facility] * Medical History:? * Surgical History:? * Hospitalization/Major Diagno stic Procedure:? * Medications:? Objective: * Vitals:? * Physical Examination:? Assessment: Plan: * Treatment: * Procedure Codes:? * * Date:?
--- OUTSIDE RECORDS SUMMARY | 2024-09-22 17:13 | XMS_ITS ---
Author Organization [facility] Address [address] [place] [address] Care Team Providers Care Account Services Associate Name Role Phone Migration, Provider Unavailable [phone] REASON FOR VISIT [facility] Medications Medication SIG (Take, Route, Fr equency, Duration) Notes Start Date End Date Status Eliquis 5 MG TAKE 1 TABLET TWICE A DAY Oral Eliquis 201605/24/2017 Active Encounters Encounter Location Date Provider Diagnosis [address] [address] 05/17/2023 Provider Migration Plan Of Treatment No Information Progress Notes * MARRY HYATTDOB:1945 (79 yo F)Acc No.[id number]:05/17/2023 Patient:?MARRY HYATT :1945???Age:78 Y???Sex:Female Address:[place], [address] Subjective: * Chief Complaints: * ???EMR-[facility] * Medical History:? * Surgical History:? * [...]
--- OUTSIDE RECORDS SUMMARY | 2024-09-22 17:14 | XMS_ITS | Patient Health Record ---
Author Organization [facility] Address [address] [place] [address] Support Name Relationship Address Phone MARRY HYATT Guarantor Unknown [phone] Reason For Referral No Information Plan Of Treatment No Information
== END 2024-09-22 15:40 | disposition home or self-care (01) ==
PROVIDERS: PCP Nurse Practitioner Family; Visit Provider Physician Assistant
DX: M54.50 Low back pain, unspecified (principal)

== ENCOUNTER → 2024-09-22 14:10 | Outpatient (BNVA) | payer OTHER, SELFPAY | PROVIDERS: PCP Nurse Practitioner Family; Visit Provider Physician Assistant | DX: M54.50 Low back pain, unspecified (principal) | CPT/HCPCS: 99212 ==

== ENCOUNTER 2024-10-03 12:51 | Outpatient (AMB) | payer OTHER, SELFPAY ==
[2024-10-03 12:56] VITALS: BP 104/62; PULSE 91; BMI 20.2
--- NOTE | 2024-10-03 12:56 | A.OFFVIS_ITS ---
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: No Allergies Cephalosporins [CEPHALOSPORINS] Allergy (Unknown, Verified 10/03/24 12:59) UNKNOWN gabapentin [GABAPENTIN] Allergy (Unknown, Verified 10/03/24 12:59) UNKNOWN mirtazapine [From REMERON] Allergy (Unknown, Verified 10/03/24 12:59) UNKNOWN naproxen Allergy (Unknown, Verified 10/03/24 12:59) UNKNOWN tramadol Allergy (Unknown, Verified 10/03/24 12:59) UNKNOWN bupropion [From WELLBUTRIN] Adverse Reaction (Unknown, Verified 10/03/24 12:59) Shaky Medication List - Last Reconciled 10/03/24 by Crista Burgos NP-C albuterol sulfate 90 mcg/actuation 2 puffs PO Q6H PRN albuterol sulfate 2.5 mg (3 mL) inhalation TID atorvastatin 40 mg PO DAILY cetirizine 10 mg PO DAILY cholecalciferol (vitamin D3) 50 mcg PO DAILY clonazepam 0.5 mg PO BID cyclobenzaprine 5 mg PO Q8H PRN diltiazem HCl ER (Tiadylt ER) 120 mg PO DAILY 90 days [Ensure Chocolate ] fluticasone propionate 110 mcg/actuation 1 puff inhalation BID ipratropium-albuterol 0.5 mg-3 mg(2.5 mg base)/3 mL 3 mL inhalation Q4-6H PRN magnesium oxide 420 mg PO BEDTIME meclizine 25 mg PO DAILY PRN pregabalin (Lyrica) 25 mg PO BID 30 days rivaroxaban (Xarelto) 20 mg PO DAILY 90 days trazodone 150 mg PO BEDTIME HPI HPI 6m follow up: Details: Tova is a 79-year-old female with past medical history of hypertension, hyperlipidemia, COPD, mild carotid stenosis, nonobstructive CAD, paroxysmal atrial fibrillation, COPD who presents for follow-up. Today she reports she has been doing well since her last visit in March. She denies any chest discomfort at rest or with activity. She does have shortness of breath at times but relates it to her smoking and COPD. She admits to smoking cigarettes and marijuana. She has reduced her cigarettes down from 2 packs a day down to 6 cigarettes per day. No PND, orthopnea or edema. No palpitations, lightheadedness, presyncope, syncope, falls. She will wear oxygen it at night as needed. She is chronic back, hip and thigh pain which persists. She uses a cane for ambulation. She is taking her meds as directed. [facility] Medical History Generalized headaches Nocturnal hypoxemia Basal cell carcinoma History of COVID-19 (~06/2021) Personal history of nicotine dependence Osteopenia (~2009) History of non-ST elevation myocardial infarction (NSTEMI) (~04/2016) COPD (chronic obstructive pulmonary disease) Depression with anxiety Brain aneurysm Bilateral carotid artery stenosis PAF (paroxysmal atrial fibrillation) (~04/2016) Atherosclerotic cardiovascular disease Surgical History History of inguinal hernia repair, bilateral (~2018) History of skin surgery History of arthroscopic surgery of shoulder (~2009) History of carpal tunnel release History of bladder surgery History of thumb surgery History of tubal ligation History of total hysterectomy Family History Father No problems noted. Mother No problems noted. Brother Stroke Social History Household Members: None Housing: Other Housing Other:: mobile home Are you a primary patient centered care specialist to a significant other at home: No Do you presently have visiting nurse or other home services: Yes ([facility]) Comment: MEDICATED Patient Tobacco Use Status: Current everyday Tobacco user Tobacco use type: Cigarette Cigarette Packs Per Day: 0.5 Cigarettes Per Day: 7 Years Smoked: 68 e-Cigarette/Vaping Use: Former Use Substance Use Type: Marijuana Advance Directives Date on File: 08/03/23 service: No Current occupational status: retired and disabled Cognitive needs: No Hearing needs: No Vision needs: No Review of Systems Const All systems reviewed & are unremarkable except as noted in HPI and below ENT Denies dizziness Card Denies chest pain, Denies chest pain at rest, Denies chest pain with activity, Denies rapid heart rate, Denies pedal edema, Denies edema, Denies leg edema, Denies lightheadedness, Denies palpitations, Denies dyspnea, Reports dyspnea on exertion and Denies orthopnea Resp Denies cough, Denies dyspnea and Reports dyspnea on exertion GI Denies hematochezia and Denies change in stool character Musc Denies abnormal gait, Denies limited range of motion, Denies muscle cramps, Denies muscle weakness, Denies numbness, Denies radiating pain into limb, Denies stiffness and Denies tingling Neuro Denies abnormal gait, Denies dizziness, Denies numbness and Denies tingling Endo Denies palpitations Physical Exam Vital Signs: BMI result Body Mass Index 20.2 Const General: cooperative, healthy appearing, comfortable and no acute distress Orientation/consciousness: patient oriented x3 Neck Neck: Yes normal visual inspection and Yes no JVD Resp Effort & Inspection: normal respiratory effort Auscultation: clear to auscultation bilaterally, no crackles, no rales, no rhonchi and no wheezes Cardio Jugular venous distension: no JVD Rate: regular rate Rhythm: regular rhythm Heart sounds: S1 normal heart sound present, S2 normal heart sound present, no murmurs and no rubs Neuro General: patient oriented x3 Extrem General: Yes normal to inspection, No no pedal edema and No calf tenderness Psych Appearance: grossly normal Mental Status: mental status grossly normal Speech and movement: Normal speech and movement present Office Procedures EKG Details: Today, read by me, normal sinus rhythm, biatrial enlargement, incomplete right bundle branch block, rate 91, QTC 464 millisecond [id number], Complete Assessment & Plan Assessment & Plan (1) Atherosclerotic cardiovascular disease: Comment: Coronary CT from 2018-moderate calcific plaque, most evident in the mid LAD where it is nearly circumferential with moderate luminal narrowing in the 50-69% range. Moderate nearly circumferential calcific plaque in the mid RCA with about 50% stenosis. Mild scattered narrowings elsewhere. Code(s): I25.10 - Atherosclerotic heart disease of [place] coronary artery without angina pectoris Category: Medical Plan: Coronary CT scan 2018 showed nonobstructive disease. Nuclear stress test done showed normal myocardial perfusion imaging. Echocardiogram done 10/26/2023 showing EF 60-65%, no regional wall motion abnormalities and no valve abnormalities. Currently no anginal symptoms. She does have some chronic exertional shortness of breath which can be explained by COPD and smoking. Continue med management for stable CAD. She has not on aspirin as she is on Xarelto. She is on atorvastatin with ideal LDL goal less than 70. She is on diltiazem for good blood pressure and heart rate control. Blood pressure today 104/62. Beta-babs is avoided due to COPD. Signs and symptoms of angina reviewed with her. Updated labs are due, orders entered in patient informed. Smoking cessation discussed. Cardiology follow-up 6 months, sooner if needed. (2) PAF (paroxysmal atrial fibrillation): Onset Date: ~04/2016 Comment: (onset 04/2016) - follows w/[facility]--last saw 06/2021-states has not been called for follow-up appt Code(s): I48.0 - Paroxysmal atrial fibrillation Category: Medical Plan: History of paroxysmal atrial fibrillation. No recent palpitations to indicate recurrent AF. EKG today showing normal sinus rhythm. Continue diltiazem for heart rate control. Continue Xarelto for anticoagulation. No bleeding issues reported. Labs ordered. (3) Bilateral carotid artery stenosis: Code(s): I65.23 - Occlusion and stenosis of bilateral carotid arteries Category: Medical Plan: History of bilateral carotid stenosis. CTA of the head and neck done 04/18/2020 shows atherosclerotic disease of bilateral ICAs causing less than 50% stenosis. Carotid ultrasound done 10/26/2023 shows right and left ICA each 0-49% stenosis. Continue atorvastatin. Plan Time spent on chart review, documentation, interview and assessment Orders: Orders Complete Blood Count Auto Diff Today I48.0 - Paroxysmal atrial fibrillation Coding Level of Care Code Est Pt Level 4 (25803) Complex EM visit Add On G2211 Diagnoses Atherosclerotic cardiovascular disease I25.10 PAF (paroxysmal atrial fibrillation) I48.0 Bilateral carotid artery stenosis I65.23 CPT Codes EKG - CPT: 22407-Ozyrvjjhifkixovap, Complete ([id number]) Time Spent (min) 28
--- OUTSIDE RECORDS SUMMARY | 2024-10-03 15:14 | XMS_ITS | Data Portability ---
Author Organization [employer] Address [address] [place] [address] Care Team Providers Care Supervisor Tumbling And Rolling Name Role Phone HIM CCA OTHER KAREN JOHNSTON Primary Care Provider [phone] Assessment Encounter Date Assessment Date Assessment LastModified [...] of any new or worsening serious symptoms Not available 08/03/2024 13:20:31 Plan of Treatment Reminders Order Date Submit Date Provider Last Modified By Organization Details Last Modified Time Details Appointments None recorded. Lab rapid SARS CoV 2 Ag, QL [place], respiratory specimen [address], [phone] 19:17:19 rapid flu (A+B) [address], [phone] 19:17:43 Referral None recorded. Procedures None recorded. Surgeries None recorded. Imaging None recorded. Medication Orders azithromyci n 250 mg tablet 2024 025 [facility]12, [address] [place], [address], 12:50:09 azithromyci n 250 mg tablet 2024 025 [email or web address] [address] [facility] #0315, [address] [place], [address], 5 12:50:08 prednisone 20 mg tablet 2024 025 [email or web address] [address] [facility], [address] [place], [address], 5 12:50:08 prednisone 20 mg tablet 2024 025 [facility]0315, [address] [place], [address], 5 12:50:57 prednisone 20 mg tablet 2024 025 [email or web address] [facility] #0315, [address] [place], [address], 5 18:44:48 prednisone 20 mg tablet 2024 025 [facility], [address] [place] [address], [address], 5 18:44:49 azithromyci n 500 mg tablet 2024 025 [email or web address] [facility], [address] [place] [address], [address], 5 18:44:48 azithromyci n 250 mg tablet 2024 025 [facility], [address] [place] [address], [address], 5 18:44:50 ketorolac 30 mg/mL injection solution 2023 024 [email or web address] [facility], [address] [place] [address], [address], 4 17:51:25 ketorolac 15 mg/mL injection solution 2023 024 [email or web address] [facility], [address] [place] [address], [address], 22:18:07 Patient TargetsNo targets recorded. Patient InstructionsNo instructions recorded. Reason for Referral None Reported. Results Created Date Observation Date Name Description Value Unit Range Abnormal Flag Note LastModifiedBy Organization Detail LastModifiedTime 07/26/1907/26/2024 rapid flu (A+B) Flu negati ve Not Available [facility] ed [address] [place] [address], [phone] 07/26/2024 18:42:19 07/26/1907/26/2024 rapid SARS CoV 2 Ag, QL IA, respi rator y speci men rapid SARS CoV 2 Ag, QL IA, respiratory specimen negati ve Not Available [facility] ed [address] [place] [address], [phone] 07/26/2024 18:42:18 Result Notes None recorded. Medical Equipment None Reported. Allergies Allergen ID Allergen Name Allergen Category Reaction Reaction Severity Criticality Documentation Date Start Date Code Code System Note Provider Name and Address Organization Details Recorded Time 00975 tramadol medicatio n Not available Not available Not available 07/26/2024 28765 RxNorm Not Available [facility] - production 16:15:34 [...] 4 18 /min 96 /min 152.4 cm 04996.1 2 g 98.1 [degF] 93 % 93 % 134 mm[Hg] 80 mm[Hg] Not Available [employer] 4 20:33:59 Date Recorded Body temperature Oxygen saturation Oxygen saturation in Arterial blood by Pulse oximetry Heart rate Respiratory rate Systolic blood pressure Diastolic blood pressure Provider Name and Address Organization Details Last Updated DateTime 4 98 [degF] 96 % 96 % 122 /min 16 /min 110 mm[Hg] 60 mm[Hg] Not Available [employer] 4 18:46:11 Date Recorded Body temperature Oxygen saturation Oxygen saturation in Arterial blood by Pulse oximetry Respiratory rate Heart rate Systolic blood pressure Diastolic blood pressure Provider Name and Address Organization Details Last Updated DateTime 4 98.5 [degF] 94 % 94 % 18 /min 77 /min 108 mm[Hg] 56 mm[Hg] Not Available [employer] [facility] 4 18:24:53 Date Recorded Body height Heart rate Body weight Body temperature Respiratory rate Oxygen saturation Oxygen saturation in Arterial blood by Pulse oximetry Systolic blood pressure Diastolic blood pressure Provider Name and Address Organization Details Last Updated DateTime 5 152.4 cm 101 /min 11330.3 44 g 98.4 [degF] 18 /min 97 % 97 % 125 mm[Hg] 84 mm[Hg] Not Available [employer] [facility] [employer] 5 18:40:45 Date Recorded Heart rate Respiratory rate Body temperature Oxygen saturation Oxygen saturation in Arterial blood by Pulse oximetry Systolic blood pressure Diastolic blood pressure Provider Name and Address Organization Details Last Updated DateTime 5 81 /min 18 /min 97.9 [degF] 96 % 96 % 130 mm[Hg] 82 mm[Hg] Not Available [employer] 5 12:44:18 Social History None recorded. Functional Status None recorded. Mental Status None recorded. Family History Nothing Reported. Medical History No medical history recorded. Gynecological HistoryNo gynecological history recorded. Obstetrics History GPAL:G 0 P 0 0 0 0 Past Encounters Encounter ID Performer Location Encounter Start Date Encounter Closed Date Diagnosis/Indication Diagnosis SNOMED-CT Code Diagnosis ICD10 Code Diagnosis Note [id number] Tori Calzada MD [facility] [address] [place] [phone] 11/30/2023 12:30:07 11/30/2023 21:50:24 Chronic low back pain 669137060 M54.50 [id number] Edd Cat MD [facility] [address] [place] [phone] 0 12/11/2023 20:33:57 12/12/2023 20:49:45 Chronic low back pain 994074604 M54.50 Reports acute-on-c hronic low back pain in the setting of malfunctio ca spinal cord stimulator . No new symptomato logy. Requesting pain control. Plan for ketorolac x1 (given report of Xarelto). Recommende d close follow-up with primary surgeon. [id number] Shawna Watts MD [facility] [address] [place] [phone] 12/13/2023 17:25:05 12/14/2023 14:46:05 Chronic low back pain 708190978 M54.50 Evaluation in the field was performed by my central supply nurse colleague, as noted above, I provided real-time [...] shortness of breath, cough, chest pain, fever. [id number] Morgan Curtis MD [facility] [address] [place] [phone] 01/12/2024 18:24:51 01/13/2024 12:27:40 Constipation [id number] K59.00 [id number] Mirza De Leon MD [facility] [address] [place] [phone] 07/26/2024 18:40:40 07/27/2024 10:40:18 Acute exacerbation of chronic obstructive pulmonary disease 408164943 J44.1 Symptoms c/w COPD exacerbati on; worsening SOB and sputum production . Negative flu/COVID. Will treat with Z-pack and Prednisone burst similar to prior episodes. Discussed red flag signs for which to seek higher level of care. [id number] Frank Vuong MD [facility] [address] [place] [phone] 08/03/2024 12:44:16 08/03/2024 15:59:11 Acute exacerbation of chronic obstructive pulmonary disease 136924426 J44.1 Health Concerns Section Related Observation LastModified by Organization Detai ls LastModified Time None Recorded Concern Status LastModified by Organization Details LastModified Time None Recorded Advance Directives Directive None Recorded Payers Encounter Date Sequence Insurance Name Policy Number Policy Richardson Covered Member ID Richardson Member ID Guarantor Name 12/11/2023 1 [facility] [employer] - DOS ON OR AFTER 2022 - DUAL ELIGIBLE - ASSISTED OPTIONS AND ONE CARE (MEDICARE REPLACEMENT/ADV ANTAGE - HMO) Tova Lopez [id number] Tova Lopez 12/13/2023 1 [employer] - DOS ON OR AFTER 2022 - DUAL ELIGIBLE - ASSISTED OPTIONS AND ONE CARE (MEDICARE REPLACEMENT/ADV ANTAGE - HMO) Tova Lopez [id number] Tova Lopez 01/12/2024 1 [facility] [employer] [employer] - DOS ON OR AFTER 2022 - DUAL ELIGIBLE - ASSISTED OPTIONS AND ONE CARE (MEDICARE REPLACEMENT/ADV ANTAGE - HMO) Tova Lopez [id number] Tova Lopez 07/26/2024 1 [employer] - DOS ON OR AFTER 2022 - DUAL ELIGIBLE - ASSISTED OPTIONS AND ONE CARE (MEDICARE REPLACEMENT/ADV ANTAGE - HMO) Tova Lopez [id number] Tova Lopez 08/03/2024 1 [employer] - DOS ON OR AFTER 2022 - DUAL ELIGIBLE - ASSISTED OPTIONS AND ONE CARE (MEDICARE REPLACEMENT/ADV ANTAGE - HMO) Tova Lopez [id number] Tova Lopez Notes Date Note Type Note [...] .................... .................... .................... .................... .................... .................... . Slat Twister Note From Maribel Winslow: Sent to a [...] Back: unremarkable; Extremities: unremarkable; Skin: pink,warm, dry; [facility] [place] and orders Toradol 15mg as a one time dose. Toradol 15mg IM administered without incident. Pt states she will follow up with surgeon and PCP. Red flags discussed. Pt has no further questions. .................... .................... .................... .................... .................... .................... .................... . Disposition: Fulfilled Edd Cat MD [address] [facility],[address], [place], [phone], [employer] 12/11/2023 22:18:20 12/13/2023 text/html CRC Nurse Triage [...] .................... .................... .................... .................... .................... .................... . Slat Twister Note From Franca You: Community Slat Twister Dash You SC6 dispatched to a [facility] for a 78 yof C/O back pain. [...] SOB, abd pain, N/V/D, or urinary S/S. [facility] consulted; she was instructed to follow up [...] Fulfilled Shawna Watts MD [address] [facility],[address], [place], [phone], [employer] 12/13/2023 20:22:42 01/12/2024 text/html CRC Nurse Triage Notes (Jeannie Snowden): Reason For Request: pain, pt experinecing numbmess in left hand, just had spinal device removed and has no appetite Chief Complaints: Dehydration PMH: COPD/Asthma, Heart Disease Allergies: Unknown Comments: Medical Art Therapist verified the member's name//address and phone number. Member is a 78 yr old female PMH > chronic back pain > [place] 5-6 yrs ago, sepsis, COPD , stopped [...] .................... .................... .................... .................... .................... .................... . Slat Twister Note From Maribel Winslow: Sent to a [...] .................... . Disposition: Fulfilled Morgan Curtis MD [address] [place] [address],[address], [place], [address], [employer] 01/13/2024 07:44:23 07/26/2024 text/html CRC Nurse Triage [...] MRI. She would like to be evaluated. Slat Twister Organization Information for Shital Devine DIANEFlorianaudrey Legal Name: [employer]? ? Address: [address] [place] [address], Telephone Directory Deliverer: Xavier Garcia MD IA No.: [id number] Slat Twister POC Test Results from Shital Devine DIANE Rapid COVID antigen (18:34:14) COVID: - Attachments uploaded as part of this test result can be found under Documents section. Rapid influenza antigen (18:34:15) Flu: - .................... .................... .................... .................... .................... .................... .................... . Slat Twister Note From Devine Jenniferjeremy: BOLA makes pt [...] and down last night, but she slept [id number] today. She became concerned w/ the fatigue [...] and a Z-pietro when she gets sick. [facility] obtains vital signs and pt is assessed. Lung sounds reveal expiratory wheezes in the apices and clear sounds in the remaining lobes. Remaining physical exam is unremarkable. [facility] contacts [facility] and discusses the above. [facility] orders 40mg prednisone and 500mg azithromycin PO and calls in prescription for the pt. [facility] administers all medications and informs pt of red flags s/s. She thanks [facility] for coming. [facility] is clear. Report completed by ALEJO Devine [id number]. [facility] Lab Orders: rapid SARS CoV 2 Ag, QL IA, respiratory specimen: Performed rapid flu (A+B): Performed [facility] Medication Orders: prednisone 20 mg tablet: Administered azithromycin 500 mg tablet: Administered Comment: 2x 250mg tabs .................... .................... .................... .................... .................... .................... .................... . [facility] Consulted: Danie De Leon.................. .................... .................... .................... .................... .................... .................... . Disposition: Fulfilled Mirza De Leon MD [address] [facility],[address], [place], [address], [employer] 07/26/2024 20:20:55 08/03/2024 text/html CRC Nurse Triage [...] .................... .................... .................... .................... .................... .................... . Slat Twister Note From Eduardo Rascon: Dispatched to the [...] wheezing and right sided rhonchi. [facility] [place]. Pt given 40mg PO prednisone and 500mg PO Azithromycin. Scripts called into preferred pharmacy. Red flags discussed. ALL times are approx. [facility] Medication Orders: azithromycin 250 mg tablet: Administered prednisone 20 mg tablet: Administered .................... .................... .................... .................... .................... .................... .................... . [facility] Consulted: Frank Vuong .................... .................... .................... .................... .................... .................... .................... . Disposition: Fulfilled Frank Vuong MD [address] [facility],[address], [place], [phone], [employer] 08/03/2024 13:20:37 OBGyn Episode No OBEpisode recorded.
--- OUTSIDE RECORDS SUMMARY | 2024-10-03 15:15 | XMS_ITS | Data Portability ---
Author Organization [facility] PA[facility] Address [address] [place] [address] Care Team Providers Care Cash Controller Name Role Phone RICKY WATERS Primary Care Provider ALFONZO STEVENSON Gre Instructor Assessment Encounter Date Assessment Date Assessment LastModified [...] booked after insurance approval. 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 She is on Xarelto and needs to stop the medication three days prior to the injection per anticoagulation guidelines. Her director recreation states she can stop the medication for [...] booked after insurance approval. 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 She is on Xarelto and needs to stop the medication three days prior to the injection per anticoagulation guidelines. Her director recreation states she can stop the medication for [...] By Organization Details Last Modified Time 05/02/2020 [id number] She was advised to continue with activities [...] care. [email or web address] Not available 05/02/2020 09:45:02 06/13/2020 [id number] She was advised to continue with activities as tolerated and benefits of smoking cessation were reviewed with her. [email or web address] Not available 06/13/2020 10:02:50 08/02/2020 [id number] She was advised to continue with activities [...] care. [email or web address] Not available 08/02/2020 14:07:27 09/12/2020 [id number] She was advised to continue with activities as tolerated and benefits of smoking cessation were reviewed with her. [email or web address] Not available 09/12/2020 16:05:23 11/09/2020 [id number] She was advised to continue with activities [...] spine No observ ation record ed. eron [facility] [address] [place], [address], 11/14/2020 11:33:18 Result Notes None recorded. Problems Name Problem SNOMED Code Status Onset Date Resolution Date Notes Provider Name and Address Organization Details Recorded Time Lumbosacral spondylosis without myelopathy 23300030 Chidi mas MD [address] [facility] , [address], [place], [address], [place] [facility] 6 18:39:02 Displacement of lumbar intervertebral disc without myelopathy 41803543 Chidi mas MD [address] , [address], [place], [address], [place] [facility] 6 18:39:03 Enthesopathy of hip region 07138600 Chidi mas MD [address] , [address], [place], [address], [place] [facility] 6 18:39:03 Compression fracture of vertebral column 73620934 Chidi mas MD [address] , [address], [place], [address], [place] [facility] 6 18:29:06 Postherpetic neuralgia 9303951 Active Nani mas MD [address] , [address], [place], [address], [place] [facility] 8 16:02:07 Lumbosacral radiculitis 92597450 Active Nani mas MD [address] , [address], [place], [address], [place] [facility] 6 18:29:06 Problem Notes None recorded. Procedures Surgical History Date Name Laterality Status Provider Name and Address Organization Details Recorded Time 09/13/19 21 Lumbar Epidural steroid injection under fluoroscopic guidance completed Nani Baker MD [address] , [address], [place], [address], [place] [facility] 09/12/2020 16:06:14 06/13/19 21 Lumbar Epidural steroid injection under fluoroscopic guidance completed Nani Baker MD [address] , [address], [facility] [place], [address], [place] [facility] 06/13/2020 10:03:35 03/13/20 20 Lumbar Epidural steroid injection under fluoroscopic guidance completed Nani Baker MD [address] , [address], [place], [address], [place] [facility] 03/13/2020 15:36:36 10/25/19 20 Lumbar Epidural steroid injection under fluoroscopic guidance completed Nani Baker MD [address] , [address], [place], [address], [place] [facility] 10/27/2019 09:47:43 06/29/19 20 Lumbar Epidural steroid injection under fluoroscopic guidance completed Nani Baker MD [address] , [address], [place], [address], [place] [facility] 06/29/2019 13:58:52 03/16/20 19 Lumbar Epidural steroid injection under fluoroscopic guidance completed Nani Baker MD [address] , [address], [place], [address], [place] [facility] 03/18/2019 15:32:17 05/19/20 18 Lumbar Epidural steroid injection under fluoroscopic guidance completed Nani Baker MD [address] , [address], [place], [address], [place] [facility] 05/19/2018 15:37:32 04/20/20 18 Greater Trochanteric Bursa Steroid Injection completed Nani Baker MD [address] , [address], [place], [address], [place] [facility] 04/20/2018 14:17:28 04/07/20 18 Greater Trochanteric Bursa Steroid Injection completed Nani Baker MD [address] , [address], [place], [address], [place] [facility] 04/07/2018 13:33:14 01/27/20 18 Greater Trochanteric Bursa Steroid Injection completed Nani Baker MD [address] , [address], [place], [address], [place] [facility] 01/28/2018 08:59:37 11/26/19 18 Fluoroscopic Guided Lumbar Facet Steroid Injections of levels completed Nani Baker MD [address] , [address], [place], [address], [place] [facility] 11/26/2017 10:21:29 10/08/19 18 Lumbar Epidural steroid injection under fluoroscopic guidance completed Nani Baker MD [address] , [address], [place], [address], [place] [facility] 10/07/2017 13:42:01 05/19/20 17 Greater Trochanteric Bursa Steroid Injection completed Nani Baker MD [address] , [address], [place], [address], [place] [facility] 05/21/2017 11:06:00 03/17/20 17 Lumbar Epidural steroid injection under fluoroscopic guidance completed Nani Baker MD [address] , [address], [place], [address], [place] [facility] 03/17/2017 13:42:48 04/06/20 14 Lumbar Epidural steroid injection under fluoroscopic guidance completed Nani Baker MD [address] , [address], [place], [address], [place] [facility] 04/06/2014 15:46:14 01/20/20 14 Radiofrequency of Lumbar/Sacral medial branches supplying the facets under fluoroscopic guidance completed Nani Baker MD [address] , [address], [place], [address], [place] [facility] 01/20/2014 11:09:57 12/27/19 14 Radiofrequency of Lumbar/Sacral medial branches supplying the facets under fluoroscopic guidance completed Nani Baker MD [address] , [address], [place], [address], [place] [facility] 12/28/2013 11:18:21 11/08/19 14 Fluoroscopic Guided Lumbar Facet Steroid Injections of levels completed Nani Baker MD [address] , [address], [place], [address], [place] [facility] 11/08/2013 15:17:09 10/25/19 14 Fluoroscopic Guided Lumbar Facet Steroid Injections of levels completed Nani Baker MD [address] , [address], [place], [address], [place] [facility] 10/27/2013 09:17:13 08/01/19 14 Lumbar Epidural steroid injection under fluoroscopic guidance completed Nani Baker MD [address] , [address], [place], [address], [place] [facility] 08/01/2013 14:24:11 04/05/20 13 Fluoroscopic Guided Lumbar Facet Steroid Injections of levels completed Nani Baker MD [address] , [address], [place], [address], [place] [facility] 04/06/2013 09:16:32 03/23/20 13 Fluoroscopic Guided Lumbar Facet Steroid Injections of levels completed Nani Baker MD [address] , [address], [place], [address], [place] [facility] 03/25/2013 11:35:45 01/25/20 13 Lumbar Epidural steroid injection under fluoroscopic guidance completed Nani Baker MD [address] , [address], [place], [address], [place] [facility] 01/24/2013 16:24:03 10/19/19 13 Lumbar Epidural steroid injection under fluoroscopic guidance completed Nani Baker MD [address] , [address], [place], [address], [place] [facility] 10/19/2012 09:47:49 Other completed Nani Baker MD [address] , [address], [place], [address], [place] [facility] 11/08/2013 [...] LastModified Time 10/19/2020 XR, lumbar spine completed [id number] [place], [address], 11/14/2020 11:33:18 Procedure Notes None recorded. Medical Equipment None Reported. Allergies Allergen ID Allergen Name Allergen Category Reaction Reaction Severity Criticality Documentation Date Start Date Code Code System Note Provider Name and Address Organization Details Recorded Time 08281 naproxen medicatio n Not available Not available Not available 02/23/2017 7258 RxNorm Armida mckeon, [place] [facility] 7 15:04:34 04501 clonidine medicatio n Not available Not available Not available 02/23/2017 2599 RxNorm Armida mckeon, [place] [facility] 7 15:04:42 75543 Wellbutri n medicatio n Not available Not available Not available 02/23/2017 26001 RxNorm Armida mckeon, [place] [facility] 7 15:05:01 70976 mirtazapi ne medicatio n Not available Not available Not available 02/23/2017 61875 RxNorm Armida mckeon, [place] [facility] 7 15:05:39 4741 Remeron medicatio n Not available Not available Not available 08/05/2012 76760 4 RxNorm Armida mckeon, [place] [facility] 3 14:22:46 4742 morphine medicatio n respirato ry distress Not available Not available 08/05/2012 7052 RxNorm Armida mckeon, [place] [facility] 4 10:46:06 5361 sulindac medicatio n arthralgi a (joint pain) Not available Not available 10/18/2012 86404 RxNorm Armida mckeon, [place] [facility] 3 14:30:10 6541 tramadol medicatio n headache Not available Not available 02/24/2013 32320 RxNorm Nani mas MD [facility] [address], [facility] [place], [address] [facility] [place] [facility] 9 10:01:55 9401 Lyrica medicatio n headache Not available Not available 03/29/2014 92490 1 RxNorm Armida mckeon, [place] [...] Not Available Not Available Not Available Afluria 0558-6766(P F) 45 mcg (15 mcg x 3)/0.5 [...] Social History Question Answer Notes LastModified by Sensus Experienceizat ion Details LastModified Time Tobacco Smoking Status Former Smoker She is on a nicotine patch and states she has quit. Not Available [facility] 03/23/2020 03:16:11 What Is Your Level Of Alcohol Consumption? None [id number] Information not available 03/23/2020 Are You Currently Employed? Yes Disabled [id number] Information not available 03/23/2020 Which Illicit Or Recreational Drugs Have You Used? Marijuana [id number] Information not available 03/23/2020 Education 12 Information no t available 08/05/2012 Live Alone Or With Others? With Others Nephew Information not available 08/05/2012 Marital Status Informatio n not available 08/05/2012 What Was The Date Of Your Most Recent Tobacco Screening? 06/30/2018 [id number] Information not available 03/23/2020 How Much Tobacco Do You Smoke? 0.5 PPD [id number] Information not available 03/23/2020 Sex: Unknown Functional Status None recorded. Mental Status None recorded. Family History Nothing Reported. Medical History Condition Response Anxiety Disorder Y Diabetes Y Coronary Artery Disease Y Hepatitis C Y Arthritis Y High Cholesterol Y Cancer Y Osteoporosis Y COPD Y Asthma Y Gynecological HistoryNo gynecological history recorded. Obstetrics History GPAL:G 0 P 0 0 0 0 Past Encounters Encounter ID Performer Location Encounter Start Date Encounter Closed Date Diagnosis/Indication Diagnosis SNOMED-CT Code Diagnosis ICD10 Code Diagnosis Note [id number] Nani Baker MD PAIN OFFICE [address] [facility] [address] [facility] [address] 08/05/2012 13:21:37 08/05/2012 15:33:38 [id number] Nani Baker MD [facility] [address] [place] [address] 10/18/2012 14:16:54 10/18/2012 15:51:29 [id number] [facility] [address] [place] [address] 11/18/2012 10:11:02 11/18/2012 15:37:35 [id number] [facility] [address] [place] [address] 01/24/2013 13:25:53 01/24/2013 16:24:59 [id number] [facility] [address] [place] [address] 02/24/2013 10:57:59 02/25/2013 09:00:54 [id number] Nani Baker MD [facility] [address] [place] [address] 03/23/2013 13:53:07 03/23/2013 15:41:57 Lumbosacral spondylosis without myelopathy 54450354 Displaceme nt of lumbar intervertebral disc without myelopathy 98836786 [id number] [facility] [address] [place] [address] 04/05/2013 12:57:19 04/05/2013 15:43:47 Lumbosacral spondylosis without myelopathy 17759225 Displaceme nt of lumbar intervertebral disc without myelopathy 45425662 Lumbosacra l radiculitis 60218635 27650 [facility] [address] [place] [address] 05/04/2013 10:54:36 05/04/2013 15:05:24 Lumbosacral spondylosis without myelopathy 46580275 Displaceme nt of lumbar intervertebral disc without myelopathy 89934462 Lumbosacra l radiculitis 86115865 90823 [facility] [address] [place] [address] 07/27/2013 09:43:56 07/27/2013 11:42:54 Lumbosacral spondylosis without myelopathy 17764247 Displaceme nt of lumbar intervertebral disc without myelopathy 93218257 Lumbosacra l radiculitis 40820577 57608 [facility] [address] [place] [address] 08/01/2013 13:26:06 08/02/2013 10:33:30 Lumbosacral spondylosis without myelopathy 69069842 Displaceme nt of lumbar intervertebral disc without myelopathy 41702006 Lumbosacra l radiculitis 10770724 91732 [facility] [address] [facility] [address] 08/30/2013 10:43:35 09/02/2013 09:22:59 Lumbosacral spondylosis without myelopathy 52404833 Displaceme nt of lumbar intervertebral disc without myelopathy 93568263 Lumbosacra l radiculitis 08115988 80186 [facility] [address] [facility] [address] 10/06/2013 11:00:49 10/07/2013 11:11:22 Lumbosacral spondylosis without myelopathy 32041298 Displaceme nt of lumbar intervertebral disc without myelopathy 22095678 Lumbosacra l radiculitis 07733202 17235 [facility] [address] [facility] [address] 10/24/2013 13:22:09 10/27/2013 09:18:15 Lumbosacral spondylosis without myelopathy 20150152 Displaceme nt of lumbar intervertebral disc without myelopathy 55713536 Lumbosacra l radiculitis 20116233 19865 [facility] [address] [facility] [address] 11/07/2013 10:27:07 11/08/2013 14:06:31 Lumbosacral spondylosis without myelopathy 33672108 Displaceme nt of lumbar intervertebral disc without myelopathy 26745165 Lumbosacra l radiculitis 52077985 64438 [facility] [address] [facility] [address] 11/29/2013 10:00:54 12/03/2013 16:50:45 Lumbosacral spondylosis without myelopathy 94848710 Displaceme nt of lumbar intervertebral disc without myelopathy 27561713 Lumbosacra l radiculitis 97909816 03887 Armida Hubbard PAIN OFFICE [address] [facility] [address] 12/26/2013 10:21:37 12/27/2013 15:19:55 Lumbosacral spondylosis without myelopathy 38710905 Displaceme nt of lumbar intervertebral disc without myelopathy 31863895 Lumbosacra l radiculitis 68281358 41075 [facility] [address] [facility] [address] 01/17/2014 13:07:43 01/18/2014 15:46:33 Lumbosacral spondylosis without myelopathy 72289254 Displaceme nt of lumbar intervertebral disc without myelopathy 46020062 Lumbosacra l radiculitis 31408735 80420 [facility] [address] [facility] [address] 01/19/2014 10:41:36 01/20/2014 11:12:44 Lumbosacral spondylosis without myelopathy 68851918 Displaceme nt of lumbar intervertebral disc without myelopathy 30068738 Lumbosacra l radiculitis 26303383 31038 [facility] [address] [address] [facility] [place] [address] 02/21/2014 10:49:23 02/21/2014 11:45:38 Lumbosacral spondylosis without myelopathy 41310172 Displaceme nt of lumbar intervertebral disc without myelopathy 20587360 Lumbosacra l radiculitis 96943180 70642 [facility] [address] [facility] [address] 03/29/2014 10:32:34 03/29/2014 11:28:43 Lumbosacral spondylosis without myelopathy 95955420 Displaceme nt of lumbar intervertebral disc without myelopathy 89773841 Lumbosacra l radiculitis 53957059 21557 [facility] [address] [facility] [address] 04/06/2014 14:07:44 04/06/2014 15:48:45 Lumbosacral spondylosis without myelopathy 01660464 Displaceme nt of lumbar intervertebral disc without myelopathy 42259196 Lumbosacra l radiculitis 84753772 69799 [facility] PAIN [facility] [address] [place] [address] 04/27/2014 13:56:39 04/29/2014 21:26:25 Lumbosacral spondylosis without myelopathy 90133061 Displaceme nt of lumbar intervertebral disc without myelopathy 40360916 Lumbosacra l radiculitis 63560006 16639 [facility] [address] [place] [address] 05/17/2014 11:13:27 05/17/2014 15:18:53 Lumbosacral spondylosis without myelopathy 83855418 Displaceme nt of lumbar intervertebral disc without myelopathy 15816712 Lumbosacra l radiculitis 33860332 36675 [facility] PA[facility] [address] [place] [address] 08/10/2014 15:17:32 08/16/2014 10:42:28 Lumbosacral spondylosis without myelopathy 60253503 Displaceme nt of lumbar intervertebral disc without myelopathy 81175136 Lumbosacra l radiculitis 31701797 92003 [facility] [address] [place] [address] 09/28/2014 14:00:05 10/01/2014 10:50:12 Lumbosacral spondylosis without myelopathy 24457331 Displaceme nt of lumbar intervertebral disc without myelopathy 56098348 Lumbosacra l radiculitis 29972802 Enthesopat hy of hip region 02929947 Compressio n fracture of vertebral column 83395449 [id number] Nani Baker MD PAIN OFFICE [address] [place] [address] 01/04/2016 10:22:33 01/12/2016 18:39:32 Lumbosacral spondylosis without myelopathy 89897963 M47.817 Displaceme nt of lumbar intervertebral disc without myelopathy 89995923 M51.26 Enthesopat hy of hip region 44411316 M76.9 [id number] Nani Baker MD PAIN OFFICE [address] [facility] [place] [address] 12/04/2016 09:35:15 01/11/2017 18:16:46 Lumbosacral spondylosis without myelopathy 01766003 M47.817 Displaceme nt of lumbar intervertebral disc without myelopathy 27676873 M51.26 Enthesopat hy of hip region 06869867 M76.9 [id number] Nani Baker MD [facility] [address] [facility] [place] [address] 02/23/2017 14:52:43 02/25/2017 15:20:57 Displacement of lumbar intervertebral disc without myelopathy 12319666 M51.26 Lumbosacra l radiculitis 67867883 M54.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 45121849 M47.817 [id number] Nani Baker MD PAIN OFFICE [address] [facility] [address] 03/17/2017 13:04:51 03/19/2017 11:14:52 Displacement of lumbar intervertebral disc without myelopathy 03243442 M51.26 Lumbosacra l radiculitis 17168437 M54.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 13551010 M47.817 [id number] Nani Baker MD PAIN OFFICE [address] [place] [place] [address] 03/31/2017 09:22:04 04/01/2017 13:37:43 Lumbosacral radiculitis 71260369 M54.17 Displaceme nt of lumbar intervertebral disc without myelopathy 33130183 M51.26 Lumbosacra l spondylosis without myelopathy 37250280 M47.817 [id number] Nani Baker MD PAIN OFFICE [address] [facility] [place] [address] 04/24/2017 08:50:47 04/24/2017 13:41:37 Lumbosacral radiculitis 40239463 M54.17 Displaceme nt of lumbar intervertebral disc without myelopathy 99471260 M51.26 Lumbosacra l spondylosis without myelopathy 72348738 M47.817 [id number] Nani Baker MD PAIN OFFICE [address] [facility] [address] [facility] [place] [address] 05/19/2017 14:06:27 05/21/2017 11:21:34 Lumbosacral radiculitis 55866330 M54.17 Displaceme nt of lumbar intervertebral disc without myelopathy 29929822 M51.26 Lumbosacra l spondylosis without myelopathy 25760798 M47.817 [id number] Nani Baker MD PAIN OFFICE [address] [facility] [address] 10/07/2017 11:31:45 10/07/2017 14:36:01 Displacement of lumbar intervertebral disc without myelopathy 97352229 M51.26 Lumbosacra l radiculitis 08555914 M54.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 68910211 M47.817 [id number] Nani Baker MD PAIN OFFICE [address] [place] [address] 11/09/2017 15:30:47 11/13/2017 08:33:20 Postherpetic neuralgia 5153690 B02.29 Lumbosacra l radiculitis 50708748 M54.17 Displaceme nt of lumbar intervertebral disc without myelopathy 53445605 M51.26 Lumbosacra l spondylosis without myelopathy 98453525 M47.817 18867 Nani Baker MD PAIN OFFICE [address] [place] [address] 11/25/2017 10:19:02 11/26/2017 10:26:57 Displacement of lumbar intervertebral disc without myelopathy 52689655 M51.26 Lumbosacra l radiculitis 92773107 M54.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 54479067 M47.817 12530 Nani Baker MD PAIN OFFICE [address] [place] [address] 01/26/2018 11:15:45 01/28/2018 09:21:50 Displacement of lumbar intervertebral disc without myelopathy 65380667 M51.26 Lumbosacra l radiculitis 17184339 M54.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 90339878 M47.817 [id number] Nani Baker MD PAIN OFFICE [address] [place] [address] 03/22/2018 14:23:54 03/22/2018 16:13:18 Displacement of lumbar intervertebral disc without myelopathy 35147239 M51.26 Lumbosacra l radiculitis 51663129 M54.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 86546027 M47.817 [id number] Nani Baker MD PAIN OFFICE [address] [place] [address] 04/07/2018 11:29:53 04/08/2018 10:07:21 Displacement of lumbar intervertebral disc without myelopathy 19944504 M51.26 Lumbosacra l radiculitis 07455663 M54.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 79211431 M47.817 [id number] Nani Baker MD PAIN OFFICE [address] [place] [address] 04/20/2018 13:09:21 04/20/2018 15:17:00 Displacement of lumbar intervertebral disc without myelopathy 78756273 M51.26 Lumbosacra l radiculitis 24417539 M54.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 24574879 M47.817 [id number] Nani Baker MD PAIN OFFICE [address] [place] [address] 05/10/2018 10:04:19 05/10/2018 11:17:05 Displacement of lumbar intervertebral disc without myelopathy 97019366 M51.26 Lumbosacra l radiculitis 51379357 M54.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 17588646 M47.817 [id number] Nani Baker MD PAIN OFFICE [address] [place] [address] 05/19/2018 09:56:28 05/19/2018 15:41:12 Displacement of lumbar intervertebral disc without myelopathy 94657151 M51.26 Lumbosacra l radiculitis 18406681 M54.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 41310853 M47.817 [id number] Nani Baker MD PAIN OFFICE [address] [facility] [address] 05/26/2018 13:50:26 05/26/2018 15:01:39 Compression fracture of vertebral column 58834690 M48.50XA Lumbosacra l radiculitis 11153088 M54.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 84875770 M47.817 Displaceme nt of lumbar intervertebral disc without myelopathy 81287616 M51.26 53624 Nani Baker MD PAIN OFFICE [address] [facility] [address] 06/30/2018 13:04:08 06/30/2018 15:53:01 Compression fracture of vertebral column 87789789 M48.50XA Lumbosacra l radiculitis 61233119 M54.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 63005301 M47.817 Displaceme nt of lumbar intervertebral disc without myelopathy 02660669 M51.26 23841 Nani Baker MD PAIN OFFICE [address] [facility] [place] [address] 02/18/2019 11:22:38 02/24/2019 16:59:49 Displacement of lumbar intervertebral disc without myelopathy 41879266 M51.26 Lumbosacra l radiculitis 72302058 M54.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 04546586 M47.817 84446 Nani Baker MD PAIN OFFICE [address] [facility] [place] [address] 03/16/2019 09:37:32 03/18/2019 15:35:03 Displacement of lumbar intervertebral disc without myelopathy 10300581 M51.26 Lumbosacra l radiculitis 64826299 M54.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 19101957 M47.817 03862 Nani Baker MD SV PAIN OFFICE [address] [place] [address] 04/27/2019 13:01:33 04/29/2019 16:03:44 Displacement of lumbar intervertebral disc without myelopathy 32724756 M51.26 Lumbosacra l radiculitis 71208369 M54.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 57732854 M47.817 23901 Nani Baker MD SV PAIN OFFICE [address] [place] [address] 06/29/2019 11:44:47 06/29/2019 14:05:58 Displacement of lumbar intervertebral disc without myelopathy 49502752 M51.26 Lumbosacra l radiculitis 97960295 M54.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 82904909 M47.817 98525 Nani Baker MD SV PAIN OFFICE [address] [place] [address] 08/08/2019 10:52:11 08/08/2019 11:32:02 Displacement of lumbar intervertebral disc without myelopathy 80769355 M51.26 Lumbosacra l radiculitis 68386799 M54.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 82088782 M47.817 53894 Nani Baker MD SV PAIN OFFICE [address] [place] [address] 10/24/2019 11:08:07 10/24/2019 11:23:30 Displacement of lumbar intervertebral disc without myelopathy 85887125 M51.26 Lumbosacra l radiculitis 87473412 M54.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 19837582 M47.817 72140 Nani Baker MD SV PAIN OFFICE [address] [place] [address] 10/25/2019 13:58:37 10/27/2019 10:16:27 Displacement of lumbar intervertebral disc without myelopathy 76239706 M51.26 Lumbosacra l radiculitis 37574105 M54.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 02010938 M47.817 27986 Nani Baker MD PAIN OFFICE [address] [employer] [employer] [address] 11/24/2019 09:33:21 11/24/2019 09:59:39 Displacement of lumbar intervertebral disc without myelopathy 46790428 M51.26 Lumbosacra l radiculitis 91247541 M54.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 05759296 M47.817 57316 Nani Baker MD SV PAIN OFFICE [address] [employer] [address] [facility] [address] 02/08/2020 08:30:06 02/08/2020 09:36:12 Displacement of lumbar intervertebral disc without myelopathy 13903278 M51.26 Lumbosacra l radiculitis 44441779 M54.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 32157895 M47.817 70479 Nani Baker MD PAIN OFFICE [address] [facility] [address] 03/13/2020 14:47:56 03/13/2020 16:08:29 Displacement of lumbar intervertebral disc without myelopathy 60666145 M51.26 Lumbosacra l radiculitis 98766483 M54.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 04561393 M47.817 32719 Nani Baker MD SV PAIN OFFICE [address] [facility] [address] 05/02/2020 09:37:41 05/02/2020 09:45:38 Displacement of lumbar intervertebral disc without myelopathy 71894295 M51.26 Lumbosacra l radiculitis 70166482 M54.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 44434611 M47.817 33599 Nani Baker MD PAIN OFFICE [address] [facility] [address] 06/13/2020 09:22:04 06/13/2020 13:57:59 Displacement of lumbar intervertebral disc without myelopathy 44538909 M51.26 Lumbosacra l radiculitis 38231052 M54.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 70724127 M47.817 62208 Nani Baker MD PAIN OFFICE [address] [place] [address] 08/02/2020 14:05:18 08/02/2020 14:11:48 Displacement of lumbar intervertebral disc without myelopathy 61353120 M51.26 Lumbosacra l radiculitis 70991859 M54.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 81194594 M47.817 70452 Nani Baker MD PAIN OFFICE [address] [place] [address] 09/12/2020 10:50:25 09/12/2020 16:08:53 Displacement of lumbar intervertebral disc without myelopathy 64276039 M51.26 Lumbosacra l radiculitis 15410196 M54.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 57688012 M47.817 08719 Nani Baker MD PAIN OFFICE [address] [place] [address] 11/09/2020 11:12:28 11/14/2020 11:32:15 Displacement of lumbar intervertebral disc without myelopathy 05375871 M51.26 Lumbosacra l radiculitis 90575221 M54.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 17735612 M47.817 Health Concerns Section Related Observation LastModified by Organization Detai ls LastModified Time None Recorded Concern Status LastModified by Organization Details LastModified Time None Recorded Advance Directives Directive None Recorded Payers Encounter Date Sequence Insurance Name Policy Number Policy Richardson Covered Member ID Richardson Member ID Guarantor Name 05/02/2020 1 [facility] - DOS PRIOR TO 2022 - DUAL ELIGIBLE (MEDICARE REPLACEMENT/ADV ANTAGE - HMO) Tova Lopez [id number] Tova Lopez 06/13/2020 1 [facility] - DOS PRIOR TO 2022 - DUAL ELIGIBLE (MEDICARE REPLACEMENT/ADV ANTAGE - HMO) Tova Lopez [id number] Tova Lopez 08/02/2020 1 [facility] - DOS PRIOR TO 2022 - DUAL ELIGIBLE (MEDICARE REPLACEMENT/ADV ANTAGE - HMO) Tova Lopez [id number] Tova Lopez 09/12/2020 1 [facility] - DOS PRIOR TO 2022 - DUAL ELIGIBLE (MEDICARE REPLACEMENT/ADV ANTAGE - HMO) Tova Lopez [id number] Tova Lopez 11/09/2020 1 [facility] - DOS PRIOR TO 2022 - DUAL ELIGIBLE (MEDICARE REPLACEMENT/ADV ANTAGE - HMO) Tova Lopez [id number] Tova Lopez Notes Date Note Type Note [...] or bowel incontinence. Nani Baker MD [address] [facility] , [address], [place], [address], [facility] Pain [facility] 05/07/2020 11:11:41 06/13/2020 text/html She is here for a lumbar epidural steroid injection under fluoroscopic guidance. She has stopped Xarelto for the procedure. Nani Baker MD [address] [facility] , [address], [place], [address], [facility] 06/13/2020 15:54:04 08/02/2020 text/html This [...] a cast . She is going to [place] for a trip to see her sons. Nani Baker MD [address] [facility] , [address], [place], [address], [facility] - Pain Management 08/10/2020 09:32:56 09/12/2020 text/html She is here for a lumbar epidural steroid injection under fluoroscopic guidance. She has stopped Xarelto for the procedure.She is S/P Fall at home with right wrist injury Nani Baker MD [address] [facility] , [address], [place], [address], [facility] - Pain Management 09/12/2020 16:20:02 11/09/2020 text/html This is a follow up . She states she has recently fallen at home and has increasing low back pain. She had X-[facility] done at [facility] which shows multiple compression fractures L1, L2 and L4 with an increasing compression fracture at L4 which appears new. She states her primary care physician is arranging for her to have a vertebroplasty done. She states she is pretty bed ridden due to pain. She has no history of bladder or bowel incontinence. Nani Baker MD [address] [facility] , [address], [place], [address], [facility] Pain Management 11/14/2020 15:46:05 OBGyn Episode No OBEpisode recorded.
--- OUTSIDE RECORDS SUMMARY | 2024-10-03 15:15 | XMS_ITS | Patient Health Record ---
Author Organization [facility] Address [address] [place] [address] Support Name Relationship Address Phone MARRY HYATT Guarantor Unknown [phone] Reason For Referral No Information Plan Of Treatment No Information
--- OUTSIDE RECORDS SUMMARY | 2024-10-03 15:15 | XMS_ITS ---
Author Organization [facility] Address [address] [place] [address] Care Team Providers Care Supervisor Car Installations Name Role Phone Migration, Provider Unavailable [phone] REASON FOR VISIT EMR-[facility] Encounters Encounter Location Date Provider Diagnosis [address] [address] 05/16/2023 Provider Migration Plan Of Treatment No Information Progress Notes * DEVIKAMARRY CazaresDOB:1945 (79 yo F)Acc No.[id number]:05/16/2023 Patient:?MARRY HYATT :1945???Age:78 Y???Sex:Female Address:[place], [address] Subjective: * Chief Complaints: * ???EMR-[facility] * Medical History:? * Surgical History:? * Hospitalization/Major Diagno stic Procedure:? * Medications:? Objective: * Vitals:? * Physical Examination:? Assessment: Plan: * Treatment: * Procedure Codes:? * * Date:?
--- OUTSIDE RECORDS SUMMARY | 2024-10-03 15:15 | XMS_ITS ---
Author Organization [facility] Address [address] [place] [address] Care Team Providers Care Pen Rider Name Role Phone Migration, Provider Unavailable [phone] REASON FOR VISIT [facility]MR-[facility] Medications Medication SIG (Take, Route, Fr equency, Duration) Notes Start Date End Date Status Eliquis 5 MG TAKE 1 TABLET TWICE A DAY Oral Eliquis 201605/24/2017 Active Encounters Encounter Location Date Provider Diagnosis [address] [address] 05/17/2023 Provider Migration Plan Of Treatment No Information Progress Notes * MARRY HYATTDOB:1945 (79 yo F)Acc No.[id number]:05/17/2023 Patient:?MARRY HYATT :1945???Age:78 Y???Sex:Female Address:[place], [address] Subjective: * Chief Complaints: * ???[facility] * Medical History:? * Surgical History:? * [...]
== END 2024-10-03 13:27 | disposition home or self-care (01) ==
LOC: HO.HCS 12:51
PROVIDERS: PCP Nurse Practitioner Family; Visit Provider Nurse Practitioner Family
DX: I25.10 Atherosclerotic heart disease of native coronary artery without angina pectoris (principal); I48.0 Paroxysmal atrial fibrillation; I65.23 Occlusion and stenosis of bilateral carotid arteries
CPT/HCPCS: 93010; 99214; G2211

== ENCOUNTER → 2024-10-03 12:51 | Outpatient (BNVA) | payer OTHER, SELFPAY | PROVIDERS: PCP Nurse Practitioner Family; Visit Provider Nurse Practitioner Family | DX: I25.10 Atherosclerotic heart disease of native coronary artery without angina pectoris (principal); I48.0 Paroxysmal atrial fibrillation; I65.23 Occlusion and stenosis of bilateral carotid arteries; I51.7 Cardiomegaly; R94.31 Abnormal electrocardiogram [ECG] [EKG] | CPT/HCPCS: 93005; 99212 ==

== ENCOUNTER 2024-10-11 15:22 | Outpatient (AMB) | payer OTHER, SELFPAY ==
[2024-10-11 15:42] VITALS: BP 138/70; PULSE 83; O2SAT 93; BMI 19.5
--- NOTE | 2024-10-11 15:42 | A.OFFPC_ITS ---
Vital Signs 10/11/24 15:42 Height 5 ft Weight 100 lb BMI 19.5 BP 138/70 Blood Pressure Location Lt brachial Position Sitting Pulse 83 Pulse Source Pulse Oximeter Pulse Oximetry (%) 93 Oxygen Delivery Method Room Air Intake Visit Reasons: PE reschedule from 09/19 Ammonia Refrigeration Worker Required: No Accompanied by: Self / Same As Patient Allergies Cephalosporins [CEPHALOSPORINS] Allergy (Unknown, Verified 10/11/24 15:43) UNKNOWN gabapentin [GABAPENTIN] Allergy (Unknown, Verified 10/11/24 15:43) UNKNOWN mirtazapine [From REMERON] Allergy (Unknown, Verified 10/11/24 15:43) UNKNOWN naproxen Allergy (Unknown, Verified 10/11/24 15:43) UNKNOWN tramadol Allergy (Unknown, Verified 10/11/24 15:43) UNKNOWN bupropion [From WELLBUTRIN] Adverse Reaction (Unknown, Verified 10/11/24 15:43) [place] Medication List - Last Reconciled 10/11/24 by Jung Schaefer, [facility]- albuterol sulfate 90 mcg/actuation 2 puffs PO Q6H PRN albuterol sulfate 2.5 mg (3 mL) inhalation TID atorvastatin 40 mg PO DAILY cetirizine 10 mg PO DAILY cholecalciferol (vitamin D3) 50 mcg PO DAILY clonazepam 0.5 mg PO BID cyclobenzaprine 5 mg PO Q8H PRN diltiazem HCl ER (Tiadylt ER) 120 mg PO DAILY 90 days [Ensure Chocolate ] fluticasone propionate 110 mcg/actuation 1 puff inhalation BID ipratropium-albuterol 0.5 mg-3 mg(2.5 mg base)/3 mL 3 mL inhalation Q4-6H PRN magnesium oxide 420 mg PO BEDTIME meclizine 25 mg PO DAILY PRN pregabalin (Lyrica) 25 mg PO BID 30 days rivaroxaban (Xarelto) 20 mg PO DAILY 90 days trazodone 150 mg PO BEDTIME Tobacco use date assessed: 10/11/24 Fall risk assessment: No Falls in past year Last assessed Fall Risk: 10/11/24 Dental Screening Dental Screen Date: 10/11/24 Did you have a dental visit in the last 12 months?: Yes Did you have a dental problem in the last 6 months where you did not have access to dental care?: No Was dental information given to patient?: Patient has dentist HPI PE reschedule from 09/19 HPI Details History of Present Illness The patient is a 79-year-old female presenting for a routine physical exam. Her history includes chronic obstructive pulmonary disease (COPD) with baseline shortness of breath and ongoing tobacco use. She denies any acute exacerbation of her pulmonary symptoms. There is a noted left carotid bruit, and the last carotid ultrasound was reported last year, prompting a repeat ultrasound to reassess. Her dermatological history reveals fair skin with multiple freckles and dry, circular macular lesions on her back. She is under the care of a property inspector for these conditions. Socially, the patient has recently lost her sister, which has caused situational sadness, but she remains engaged and active within her family. She denies depressive symptoms such as suicidal or homicidal ideation. Health Maintenance - Patient refuses colonoscopy and Cologu luciana test. - Patient refuses mammograms. - Smoking cessation advised due to COPD. - Annual carotid ultrasound recommended for further monitoring of the carotid bruit. Social History - Tobacco Use: Patient continues to smok e. - Family Status: Recently lost her siste r, leading to situational sadness. - Activity Level: Active within her fami ly. Review of Systems - Pulmonary: Denies chest pain or increa sed shortness of breath. - Psychiatric: Denies suicidal ideation or homicidal ideation. - General: Denies fevers and chills. -denies any constipation, diarrhea, N/V, fevers chills Physical Exam General: Cooperative, healthy appearing, comfortable, no acute distress and well developed Orientation: Patient oriented x3 Limitations: No limitations Head: Normal to inspection Ears: Hearing grossly normal bilaterally Nose: Normal external nose present Face and sinus: Normal facial exam Eyes: Appearance normal, both eyes and all related structures Neck: Normal visual inspection and Yes full ROM Respiratory: Diminished lung sounds though moving air bilaterally Cardiovascular: Regular rate and rhythm. Normal S1 and S2. Carotid bruit noted at the left side GI: Normal to inspection. Soft to palpation and nontender Skin: Very fair skinned with multiple freckles and some dry, more circular lesions, macular to her back Neuro: Patient oriented x3 Extremities: Normal to inspection Results Plan I addressed the patient's smoking habits and stressed the importance of cessation to improve her COPD. A repeat carotid ultrasound will be conducted to monitor the left carotid bruit. The patient remains under dermatological care for her lesions, and her situational sadness was acknowledged with support provided. She has refused certain screening tests, and while I respect her choices, I will ensure she stays updated with other health measures. Continued follow-up was advised for her COPD and overall health. Discussion Notes I discussed the patient's ongoing COPD management, focusing on smoking cessation due to its adverse effects on her respiratory condition. I ordered a repeat carotid ultrasound based on the presence of the left carotid bruit and previous imaging from last year. The dermatological assessment is consistent with ongoing treatment, and her refusal of screenings like the colonoscopy and mammogram was noted, emphasizing the importance yet respecting her autonomy. We explored her emotional health following her sister's , confirming no current depressive symptoms. Follow-up visits were advised to maintain vigilant monitoring of her health status. MOLST form given to pt to fill out with her HCP (HCP on file already) Patient Instructions - Consider stopping smoking to improve l chandana health. - Schedule a follow-up for a carotid ult rasound. - Continue regular dermatological care f or skin lesions. - Stay active with family and engage in activities that bring massiel. - Return for regular check-ups to monito r health conditions. [facility] Medical History Generalized headaches Nocturnal hypoxemia Basal cell carcinoma History of COVID-19 (~06/2021) Personal history of nicotine dependence Osteopenia (~2009) History of non-ST elevation myocardial infarction (NSTEMI) (~04/2016) COPD (chronic obstructive pulmonary disease) Depression with anxiety Brain aneurysm Bilateral carotid artery stenosis PAF (paroxysmal atrial fibrillation) (~04/2016) Atherosclerotic cardiovascular disease Surgical History History of inguinal hernia repair, bilateral (~2018) History of skin surgery History of arthroscopic surgery of shoulder (~2009) History of carpal tunnel release History of bladder surgery History of thumb surgery History of tubal ligation History of total hysterectomy Family History Father No problems noted. Mother No problems noted. Brother Stroke Social History Household Members: None Housing: Other Housing Other:: mobile home Are you a primary vehicle care specialist to a significant other at home: No Do you presently have visiting nurse or other home services: Yes ([facility] q6 months) Comment: MEDICATED Patient Tobacco Use Status: Current everyday Tobacco user Tobacco use type: Cigarette Cigarette Packs Per Day: 0.5 Cigarettes Per Day: 7 Years Smoked: 68 e-Cigarette/Vaping Use: Former Use Substance Use Type: Marijuana Advance Directives Date on File: 08/03/23 service: No Current occupational status: retired and disabled Cognitive needs: No Hearing needs: No Vision needs: No Questionnaire PHQ-9 Over the last 2 weeks, how often have you been bothered by any of the following problems? 1. Little interest or pleasure in doing things: not at all 2. Feeling down, depressed, or hopeless: not at all 3. Trouble falling or staying asleep, or sleeping too much: not at all 4. Feeling tired or having little energy: not at all 5. Poor appetite or overeating: several days 6. Feeling bad about yourself - or that you are a failure or have let yourself or your family down: not at all 7. Trouble concentrating on things, such as reading the newspaper or watching television: not at all 8. Moving or speaking so slowly that other people could have noticed. Or the opposite - being so fidgety or restless that you have been moving around a lot more than usual: not at all 9. Thoughts that you would be better off or of hurting yourself in some way: not at all Total score: 1 Depression Screening Interpretation: Negative Depression Screening Done: Yes 68695 - PHQ-9 Billing: Yes Source: Developed by Drs. Celso Chauhan, Naila Wilkins, Isael French and colleagues, with an educational edmundo from [employer]. Thrive Questionnaire Date Thrive assessed: 10/11/24 I am a: Patient What is your living situation today?: I have a steady place to live Within the past 12 months, did the food you bought not last and you didn't have the money to get more?: Never true Within the past 12 months, did you worry whether your food would run out before you got money to buy more?: Never true Do you have trouble paying for medicines?: No Do you have trouble getting transportation to medical appointments?: No Do you have trouble paying your heating and electricity bill?: No Do you have trouble taking care of your child, family member or friend?: No Do you have trouble with day-to-day activities such as bathing, preparing meals, shopping, managing finances, etc.?: No Are you currently unemployed and looking for a job?: No Are you interested in more education?: No Please select the resources that you would like help with: None Currently or been in a relationship where the following occur: No concerns reported THRIVE Score: 0 AUDIT C Alcohol Use Questionnaire (AUDIT-C) 1. How often do you have a drink containing alcohol?: Never 3. How often do you have six or more drinks on one occasion?: Never Total Score: 0 Score Reviewed/Action Taken: Yes ARPITA-7 AMB Questionnaire ARPITA-7 Date ARPITA - 7 assessed: 10/11/24 Feeling nervous, anxious, or on edge: 0 = Not at all Not being able to stop or control worryin = Not at all Worrying too much about different things: 0 = Not at all Trouble relaxin = Not at all Being so restless that it is hard to sit still: 0 = Not at all Becoming easily annoyed or irritable: 0 = Not at all Feeling afraid as if something awful might happen: 0 = Not at all Total ARPITA-7 score (0-4 normal; 5-9 mild; 10-14 moderate; 15-21 severe): 0 Source: Developed by Drs. Celso Chauhan, Naila Wilkins, Isael French and colleagues, with an educational edmundo from [employer]. ARPITA-7 Assessment Billing ARPITA-7 Assessment Tool: ARPITA-7 Assessment 25603 Physical exam (Primary Care) Vital Signs: Last Vital Signs Pulse 83 10/11/24 15:42 BP 138/70 10/11/24 15:42 Pulse Ox 93 10/11/24 15:42 Oxygen Delivery Method Room Air 10/11/24 15:42 BMI result Body Mass Index 19.5 Tobacco/Smoking Status: Tobacco use Status Tobacco use date assessed 10/11/24 10/11/24 15:48 Patient Tobacco Use Status Current everyday Tobacco 10/11/24 15:48 Tobacco use type Cigarette 10/11/24 15:48 e-Cigarette/Vaping Use Former Use 10/11/24 15:48 PHQ-9: PHQ-9 Score PHQ-9: Total score 1 10/11/24 15:48 Depression Screening Interpretation: Negative Thrive Assessment: Date of Thrive Assessment Date Thrive assessed 10/11/24 10/11/24 15:48 Currently or been in a relationship where the following occur: No concerns reported Coding Level of Care Code Est Pt Prev Care >65y(75950) Diagnoses Encounter for routine adult physical exam with abnormal findings Z. Vitamin D deficiency E55.9 Carotid bruit R09.89 Additional Codes ARPITA-7 Assessment Billing - ARPITA-7 Assessment Tool: ARPITA-7 Assessment 86137 ([id number]) PHQ-9 - 63028 - PHQ-9 Billing: Yes ([id number]) Assessment & Plan Assessment & Plan (1) Encounter for routine adult physical exam with abnormal findings: Code(s): Z00. - Encounter for general adult medical examination with abnormal findings Category: Medical (2) Vitamin D deficiency: Code(s): E55.9 - Vitamin D deficiency, unspecified Category: Medical (3) Carotid bruit: Code(s): R09.89 - Other specified symptoms and signs involving the circulatory and respiratory systems Category: Medical Plan . Orders: Orders Comprehensive Moody. Panel Fast Today Z00. - Encounter for general adult me dical examination with abnormal findings TSH reflex Free T4 Today Z00. - Encounter for general adult medical examination with abnormal findings UA CC w/rflx Micro + Cult Today Z00. - Encounter for general adult medical examination with abnormal findings Vitamin D 25-OH Total Today E55.9 - Vitamin D deficiency, unspecified US carotid duplex BI Today R09.89 - Other specified symptoms and signs involving the circulatory and respiratory systems Complete Blood Count Auto Diff Today Z00. - Encounter for general adult medical examination with abnormal findings Lipid Panel Today Z00. - Encounter for general adult medical examination with abnormal findings
--- OUTSIDE RECORDS SUMMARY | 2024-10-11 16:32 | XMS_ITS ---
Author Organization [facility] Address [address] [place] [address] Care Team Providers Care Gold And Silver Assayer Name Role Phone Migration, Provider Unavailable [phone] REASON FOR VISIT EMR-[facility] Medications Medication SIG (Take, Route, Fr equency, Duration) Notes Start Date End Date Status Eliquis 5 MG TAKE 1 TABLET TWICE A DAY Oral Eliquis 201605/24/2017 Active Encounters Encounter Location Date Provider Diagnosis [address] [address] 05/17/2023 Provider Migration Plan Of Treatment No Information Progress Notes * MARRY HYATTDOB:1945 (79 yo F)Acc No.[id number]:05/17/2023 Patient:?MARRY HYATT :1945???Age:78 Y???Sex:Female Address:[place], [address] Subjective: * Chief Complaints: * ???EMR-[facility] * Medical History:? * Surgical History:? * [...]
--- OUTSIDE RECORDS SUMMARY | 2024-10-11 16:32 | XMS_ITS | Data Portability ---
Author Organization [facility] Address [address] [place] [address] Care Team Providers Care Medical Facilities Section Director Name Role Phone HIM CCA OTHER KAREN [...] of any new or worsening serious symptoms [id number] Not available 08/03/2024 13:20:31 Plan of Treatment Reminders Order Date Submit Date Provider Last Modified By Organization Details Last Modified Time Details Appointments None recorded. Lab rapid SARS CoV 2 Ag, QL [place], respiratory specimen [address], [id number] 19:17:19 rapid flu (A+B) [address], [address] 19:17:43 Referral None recorded. Procedures None recorded. Surgeries None recorded. Imaging None recorded. Medication Orders azithromyci n 250 mg tablet 2024 025 [facility]armacy #0318, [address] [place], [address], 12:50:09 azithromyci n 250 mg tablet 2024 025 [email or web address] [facility]/Pharmacy #0315, [address] [place], [address], 5 12:50:08 prednisone 20 mg tablet 2024 025 [email or web address] 84 [facility]/Pharmacy #0315, [address] [place], [address], 5 12:50:08 prednisone 20 mg tablet 2024 025 [facility]/Pharmacy #0315, [address] [place], [address], 5 12:50:57 prednisone 20 mg tablet 2024 025 [email or web address] [facility]/Pharmacy #0315, [address] [place], [address], 5 18:44:48 prednisone 20 mg tablet 2024 025 [facility]/Pharmacy #0315, [address] [place] [address], [address], 5 18:44:49 azithromyci n 500 mg tablet 2024 025 [email or web address] [facility]/Pharmacy #0315, [address] [place] [address], [address], 5 18:44:48 azithromyci n 250 mg tablet 2024 025 [facility]armacy #0315, [address] [place] [address], [address], 5 18:44:50 ketorolac 30 mg/mL injection solution 2023 024 [email or web address] [facility]/Pharmacy #0315, [address] [place] [address], [address], 4 17:51:25 ketorolac 15 mg/mL injection solution 2023 024 [email or web address] [facility]/Pharmacy #0315, [address] [place] [address], [address], 22:18:07 Patient TargetsNo targets recorded. Patient InstructionsNo instructions recorded. Reason for Referral None Reported. Results Created Date Observation Date Name Description Value Unit Range Abnormal Flag Note LastModifiedBy Organization Detail LastModifiedTime 07/26/1907/26/2024 rapid flu (A+B) Flu negati ve Not Available [facility] ed [address] [place] [address], [phone] 07/26/2024 18:42:19 07/26/1907/26/2024 rapid SARS CoV 2 Ag, QL IA, respi rator y speci men rapid SARS CoV 2 Ag, QL IA, respiratory specimen negati ve Not Available [facility] ed [address] [place] [address], [phone] 07/26/2024 18:42:18 Result Notes None recorded. Medical Equipment None Reported. Allergies Allergen ID Allergen Name Allergen Category Reaction Reaction Severity Criticality Documentation Date Start Date Code Code System Note Provider Name and Address Organization Details Recorded Time 95335 tramadol medicatio n Not available Not available Not available 07/26/2024 10484 RxNorm Not Available [facility] - production 16:15:34 [...] 4 18 /min 96 /min 152.4 cm 47639.1 2 g 98.1 [degF] 93 % 93 % 134 mm[Hg] 80 mm[Hg] Not Available [facility] 4 20:33:59 Date Recorded Body temperature Oxygen saturation Oxygen saturation in Arterial blood by Pulse oximetry Heart rate Respiratory rate Systolic blood pressure Diastolic blood pressure Provider Name and Address Organization Details Last Updated DateTime 4 98 [degF] 96 % 96 % 122 /min 16 /min 110 mm[Hg] 60 mm[Hg] Not Available [employer] 4 18:46:11 Date Recorded Body temperature Oxygen saturation Oxygen saturation in Arterial blood by Pulse oximetry Respiratory rate Heart rate Systolic blood pressure Diastolic blood pressure Provider Name and Address Organization Details Last Updated DateTime 4 98.5 [degF] 94 % 94 % 18 /min 77 /min 108 mm[Hg] 56 mm[Hg] Not Available [facility] - production 4 18:24:53 Date Recorded Body height Heart rate Body weight Body temperature Respiratory rate Oxygen saturation Oxygen saturation in Arterial blood by Pulse oximetry Systolic blood pressure Diastolic blood pressure Provider Name and Address Organization Details Last Updated DateTime 5 152.4 cm 101 /min 29270.3 44 g 98.4 [degF] 18 /min 97 % 97 % 125 mm[Hg] 84 mm[Hg] Not Available [employer] - production 5 18:40:45 Date Recorded Heart rate Respiratory rate Body temperature Oxygen saturation Oxygen saturation in Arterial blood by Pulse oximetry Systolic blood pressure Diastolic blood pressure Provider Name and Address Organization Details Last Updated DateTime 5 81 /min 18 /min 97.9 [degF] 96 % 96 % 130 mm[Hg] 82 mm[Hg] Not Available [employer] 5 12:44:18 Social History None recorded. Functional Status None recorded. Mental Status None recorded. Family History Nothing Reported. Medical History No medical history recorded. Gynecological HistoryNo gynecological history recorded. Obstetrics History GPAL:G 0 P 0 0 0 0 Past Encounters Encounter ID Performer Location Encounter Start Date Encounter Closed Date Diagnosis/Indication Diagnosis SNOMED-CT Code Diagnosis ICD10 Code Diagnosis Note [id number] Tori Calzada MD [facility] [address] [place] [phone] 11/30/2023 12:30:07 11/30/2023 21:50:24 Chronic low back pain 426475036 M54.50 [id number] Edd Cat MD [facility] [address] [place] [phone] 12/11/2023 20:33:57 12/12/2023 20:49:45 Chronic low back pain 555831703 M54.50 Reports acute-on-c hronic low back pain in the setting of malfunctio ca spinal cord stimulator . No new symptomato logy. Requesting pain control. Plan for ketorolac x1 (given report of Xarelto). Recommende d close follow-up with primary surgeon. 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 [id number] Morgan Curtis MD [facility] [address] [place] [phone] 01/12/2024 18:24:51 01/13/2024 12:27:40 Constipation 28597038 K59.00 [id number] Mirza De Leon MD [facility] [address] [place] [phone] 07/26/2024 18:40:40 07/27/2024 10:40:18 Acute exacerbation of chronic obstructive pulmonary disease 942506796 J44.1 Symptoms c/w COPD exacerbati on; worsening SOB and sputum production . Negative flu/COVID. Will treat with Z-pack and Prednisone burst similar to prior episodes. Discussed red flag signs for which to seek higher level of care. [id number] Frank Vuong MD [facility] [address] [place] [phone] 08/03/2024 12:44:16 08/03/2024 15:59:11 Acute exacerbation of chronic obstructive pulmonary disease 182374245 J44.1 Health Concerns Section Related Observation LastModified by Organization Detai ls LastModified Time None Recorded Concern Status LastModified by Organization Details LastModified Time None Recorded Advance Directives Directive None Recorded Payers Encounter Date Sequence Insurance Name Policy Number Policy Richardson Covered Member ID Richardson Member ID Guarantor Name 12/11/2023 [facility] [employer] - DOS ON OR AFTER 2022 - DUAL ELIGIBLE - NURSING HOME OPTIONS AND ONE CARE (MEDICARE REPLACEMENT/ADV ANTAGE - HMO) Tova Lopez [id number] Tova Lopez 12/13/2023 1 D square [employer] - DOS ON OR AFTER 2022 - DUAL ELIGIBLE - NURSING HOME OPTIONS AND ONE CARE (MEDICARE REPLACEMENT/ADV ANTAGE - HMO) Tova Lopez [id number] Tova Lopez 01/12/2024 1 [facility] [employer] - DOS ON OR AFTER 2022 - DUAL ELIGIBLE - NURSING HOME OPTIONS AND ONE CARE (MEDICARE REPLACEMENT/ADV ANTAGE - HMO) Tova Lopez [id number] Tova Lopez 07/26/2024 1 Lawn [employer] - DOS ON OR AFTER 2022 - DUAL ELIGIBLE - NURSING HOME OPTIONS AND ONE CARE (MEDICARE REPLACEMENT/ADV ANTAGE - HMO) Tova Lopez [id number] Tova Lopez 08/03/2024 1 D square [employer] - DOS ON OR AFTER 2022 - DUAL ELIGIBLE - NURSING HOME OPTIONS AND ONE CARE (MEDICARE REPLACEMENT/ADV ANTAGE - HMO) Tova Lopez [id number] Tova Lopez Notes Date Note Type Note [...] .................... .................... .................... .................... .................... .................... . Chlorine Cell Tender Note From Maribel Winslow: Sent to a [...] . Disposition: Fulfilled Edd Cat MD [address] [facility],[address], [place], [address], [facility] 12/11/2023 22:18:20 12/13/2023 text/html CRC Nurse Triage [...] .................... .................... .................... .................... .................... .................... . Chlorine Cell Tender Note From Franca You: Community Chlorine Cell Tender Dash You SC[facility] 78 yof C/O back [...] . Disposition: Fulfilled Shawna Watts MD [address] [facility],[address], [place], [address], [facility] 12/13/2023 20:22:42 01/12/2024 text/html CRC Nurse Triage Notes (Jeannie Snowden): Reason For Request: pain, pt experinecing numbmess in left hand, just had spinal device removed and has no appetite Chief Complaints: Dehydration PMH: COPD/Asthma, Heart Disease Allergies: Unknown Comments: Chopper Gun Operator verified the member's name//address and phone number. Member is a 78 yr old female PMH > chronic back pain > [place] 5-6 yrs ago, sepsis, COPD , stopped [...] .................... .................... .................... .................... .................... .................... . Chlorine Cell Tender Note From Maribel Winslow: Sent to a [...] .................... . Disposition: Fulfilled Morgan Curtis MD [address] [place] [address],[address], [place], [address], [facility] 01/13/2024 07:44:23 07/26/2024 text/html CRC Nurse Triage [...] MRI. She would like to be evaluated. Chlorine Cell Tender Organization Information for Shital Devine DIANEFlorianaudrey Legal Name: [employer].? Address: [address] [place] [address], Network Relations Consultant: Xavier Garcia MD [place] No.: [id number] Chlorine Cell Tender POC Test Results from Shital Devine DIANE Rapid COVID antigen (18:34:14) COVID: - Attachments uploaded as part of this test result can be found under Documents section. Rapid influenza antigen (18:34:15) Flu: - .................... .................... .................... .................... .................... .................... .................... . Chlorine Cell Tender Note From Devine Baldomeroyuri: BOLA makes pt contact. She is standing [...] and down last night, but she slept [id number] today. She became concerned w/ the fatigue [...] and a Z-pietro when she gets sick. [facility] obtains vital signs and pt is assessed. Lung sounds reveal expiratory wheezes in the apices and clear sounds in the remaining lobes. Remaining physical exam is unremarkable. [facility] contacts [facility] and discusses the above. [facility] orders 40mg prednisone and 500mg azithromycin PO and calls in prescription for the pt. [facility] administers all medications and informs pt of red flags s/s. She thanks [facility] for coming. [facility] is clear. Report completed by ALEJO Devine [id number]. [facility] [...] [facility] Consulted: Danie De Leon .................... .................... .................... .................... .................... .................... .................... . Disposition: Fulfilled Mirza De Leon MD [address] [facility],[address], [place], [address], [facility] 07/26/2024 20:20:55 08/03/2024 text/html CRC Nurse Triage [...] .................... .................... .................... .................... .................... .................... . Chlorine Cell Tender Note From Eduardo Rascon: Dispatched to the [...] . Disposition: Fulfilled Frank Vuong MD [address] [facility],[address], [place], [address], AJAY MICHAEL 08/03/2024 13:20:37 OBGyn Episode No OBEpisode recorded.
--- OUTSIDE RECORDS SUMMARY | 2024-10-11 16:33 | XMS_ITS ---
Author Organization 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 * Surgical History:? * Hospitalization/Major Diagno stic Procedure:? * Medications:? Objective: * Vitals:? * Physical Examination:? Assessment: Plan: * Treatment: * Procedure Codes:? * * Date:?
--- OUTSIDE RECORDS SUMMARY | 2024-10-11 16:33 | XMS_ITS | Data Portability ---
Author Organization [facility] PA[facility] Address [address] [place] [address] Care Team Providers Care Trauma Manager Name Role Phone RICKY WATERS Primary Care Provider ALFONZO STEVENSON Retail Merchandising Manager [phone] Assessment Encounter Date Assessment Date Assessment LastModified [...] booked after insurance approval. She needs a services delivery driver on the day of the procedure. She is on Xarelto and needs to stop the medication three days prior to the injection per anticoagulation guidelines. Her tobacco acreage measurer states she can stop the medication for [...] booked after insurance approval. She needs a services delivery driver on the day of the procedure. She is on Xarelto and needs to stop the medication three days prior to the injection per anticoagulation guidelines. Her tobacco acreage measurer states she can stop the medication for [...] By Organization Details Last Modified Time 05/02/2020 [id number] She was advised to continue with activities [...] care. [email or web address] Not available 05/02/2020 09:45:02 06/13/2020 [id number] She was advised to continue with activities as tolerated and benefits of smoking cessation were reviewed with her. [email or web address] Not available 06/13/2020 10:02:50 08/02/2020 62319 She was advised to continue with activities [...] care. [email or web address] Not available 08/02/2020 14:07:27 09/12/2020 08414 She was advised to continue with activities as tolerated and benefits of smoking cessation were reviewed with her. [email or web address] Not available 09/12/2020 16:05:23 11/09/2020 [id number] She was advised to continue with activities [...] spine No observ ation record ed. eron [facility] [address] [place], [address], 11/14/2020 11:33:18 Result Notes None recorded. Problems Name Problem SNOMED Code Status Onset Date Resolution Date Notes Provider Name and Address Organization Details Recorded Time Lumbosacral spondylosis without myelopathy [id number] Chidi mas MD [address] [facility] , [address], [place], [address], [place] [facility] 6 18:39:02 Displacement of lumbar intervertebral disc without myelopathy 00813435 Chidi mas MD [address] , [address], [place], [address], [place] [facility] 6 18:39:03 Enthesopathy of hip region 48548762 Chidi mas MD [address] , [address], [place], [address], [place] [facility] 6 18:39:03 Compression fracture of vertebral column 51662725 Chidi mas MD [address] , [address], [place], [address], [place] [facility] 6 18:29:06 Postherpetic neuralgia 2702895 Active Nani mas MD [address] , [address], [place], [address], [place] [facility] 8 16:02:07 Lumbosacral radiculitis 30454391 Active Nani mas MD [address] , [address], [place], [address], [place] [facility] 6 18:29:06 Problem Notes None recorded. Procedures Surgical History Date Name Laterality Status Provider Name and Address Organization Details Recorded Time 09/13/19 21 Lumbar Epidural steroid injection under fluoroscopic guidance completed Nani Baker MD [address] , [address], [place], [address], [place] [facility] 09/12/2020 16:06:14 06/13/19 21 Lumbar Epidural steroid injection under fluoroscopic guidance completed Nani Baker MD [address] , [address], [facility] [place], [address], [place] [facility] 06/13/2020 10:03:35 03/13/20 20 Lumbar Epidural steroid injection under fluoroscopic guidance completed Nani Baker MD [address] , [address], [place], [address], [place] [facility] 03/13/2020 15:36:36 10/25/19 20 Lumbar Epidural steroid injection under fluoroscopic guidance completed Nani Baker MD [address] , [address], [place], [address], [place] [facility] 10/27/2019 09:47:43 06/29/19 20 Lumbar Epidural steroid injection under fluoroscopic guidance completed Nani Baker MD [address] , [address], [place], [address], [place] [facility] 06/29/2019 13:58:52 03/16/20 19 Lumbar Epidural steroid injection under fluoroscopic guidance completed Nani Baker MD [address] , [address], [place], [address], [place] [facility] 03/18/2019 15:32:17 05/19/20 18 Lumbar Epidural steroid injection under fluoroscopic guidance completed Nani Baker MD [address] , [address], [place], [address], [place] [facility] 05/19/2018 15:37:32 04/20/20 18 Greater Trochanteric Bursa Steroid Injection completed Nani Baker MD [address] , [address], [place], [address], [place] [facility] 04/20/2018 14:17:28 04/07/20 18 Greater Trochanteric Bursa Steroid Injection completed Nani Baker MD [address] , [address], [place], [address], [place] [facility] 04/07/2018 13:33:14 01/27/20 18 Greater Trochanteric Bursa Steroid Injection completed Nani Baker MD [address] , [address], [place], [address], [place] [facility] 01/28/2018 08:59:37 11/26/19 18 Fluoroscopic Guided Lumbar Facet Steroid Injections of levels completed Nani Baker MD [address] , [address], [place], [address], [place] [facility] 11/26/2017 10:21:29 10/08/19 18 Lumbar Epidural steroid injection under fluoroscopic guidance completed Nani Baker MD [address] , [address], [place], [address], [place] [facility] 10/07/2017 13:42:01 05/19/20 17 Greater Trochanteric Bursa Steroid Injection completed Nani Baker MD [address] , [address], [place], [address], [place] [facility] 05/21/2017 11:06:00 03/17/20 17 Lumbar Epidural steroid injection under fluoroscopic guidance completed Nani Baker MD [address] , [address], [place], [address], [place] [facility] 03/17/2017 13:42:48 04/06/20 14 Lumbar Epidural steroid injection under fluoroscopic guidance completed Nani Baker MD [address] , [address], [place], [address], [place] [facility] 04/06/2014 15:46:14 01/20/20 14 Radiofrequency of Lumbar/Sacral medial branches supplying the facets under fluoroscopic guidance completed Nani Baker MD [address] , [address], [place], [address], [place] [facility] 01/20/2014 11:09:57 12/27/19 14 Radiofrequency of Lumbar/Sacral medial branches supplying the facets under fluoroscopic guidance completed Nani Baker MD [address] , [address], [place], [address], [place] [facility] 12/28/2013 11:18:21 11/08/19 14 Fluoroscopic Guided Lumbar Facet Steroid Injections of levels completed Nani Baker MD [address] , [address], [place], [address], [place] [facility] 11/08/2013 15:17:09 10/25/19 14 Fluoroscopic Guided Lumbar Facet Steroid Injections of levels completed Nani Baker MD [address] , [address], [place], [address], [place] [facility] 10/27/2013 09:17:13 08/01/19 14 Lumbar Epidural steroid injection under fluoroscopic guidance completed Nani Baker MD [address] , [address], [place], [address], [place] [facility] 08/01/2013 14:24:11 04/05/20 13 Fluoroscopic Guided Lumbar Facet Steroid Injections of levels completed Nani Baker MD [address] , [address], [place], [address], [place] [facility] 04/06/2013 09:16:32 03/23/20 13 Fluoroscopic Guided Lumbar Facet Steroid Injections of levels completed Nani Baker MD [address] , [address], [place], [address], [place] [facility] 03/25/2013 11:35:45 01/25/20 13 Lumbar Epidural steroid injection under fluoroscopic guidance completed Nani Baker MD [address] , [address], [place], [address], [place] [facility] 01/24/2013 16:24:03 10/19/19 13 Lumbar Epidural steroid injection under fluoroscopic guidance completed Nani Baker MD [address] , [address], [place], [address], [place] [facility] 10/19/2012 09:47:49 Other completed Nani Baker MD [address] , [address], [place], [address], [place] [facility] 11/08/2013 [...] LastModified Time 10/19/2020 XR, lumbar spine completed [address] [place], [address], 11/14/2020 11:33:18 Procedure Notes None recorded. Medical Equipment None Reported. Allergies Allergen ID Allergen Name Allergen Category Reaction Reaction Severity Criticality Documentation Date Start Date Code Code System Note Provider Name and Address Organization Details Recorded Time 34946 naproxen medicatio n Not available Not available Not available 02/23/2017 7258 RxNorm Armida mckeon, [place] [facility] 7 15:04:34 94472 clonidine medicatio n Not available Not available Not available 02/23/2017 2599 RxNorm Armida mckeon, [place] [facility] 7 15:04:42 12614 Wellbutri n medicatio n Not available Not available Not available 02/23/2017 66762 RxNorm Armida mckeon, [place] [facility] 7 15:05:01 20752 mirtazapi ne medicatio n Not available Not available Not available 02/23/2017 20349 RxNorm Armida mckeon, [place] [facility] 7 15:05:39 4741 Remeron medicatio n Not available Not available Not available 08/05/2012 84143 4 RxNorm Armida mckeon, [place] [facility] 3 14:22:46 4742 morphine medicatio n respirato ry distress Not available Not available 08/05/2012 7052 RxNorm Armida mckeon, [place] [facility] 4 10:46:06 5361 sulindac medicatio n arthralgi a (joint pain) Not available Not available 10/18/2012 90003 RxNorm Armida mckeon, [place] [facility] 3 14:30:10 6541 tramadol medicatio n headache Not available Not available 02/24/2013 85022 RxNorm Nani mas MD [facility] [address], [facility] [place], [address] [facility] [place] [facility] 9 10:01:55 9401 Lyrica medicatio n headache Not available Not available 03/29/2014 72913 1 RxNorm Armida mckeon, [place] - [place] [...] Not Available Not Available Not Available Afluria 6939-7796(P F) 45 mcg (15 mcg x 3)/0.5 [...] Social History Question Answer Notes LastModified by [employer] ion Details LastModified Time Tobacco Smoking Status Former Smoker She is on a nicotine patch and states she has quit. Not Available [facility] 03/23/2020 03:16:11 What Is Your Level Of Alcohol Consumption? None [id number] Information not available 03/23/2020 Are You Currently Employed? Yes Disabled [id number] Information not available 03/23/2020 Which Illicit Or Recreational Drugs Have You Used? Marijuana [id number] Information not available 03/23/2020 Education 12 Information no t available 08/05/2012 Live Alone Or With Others? With Others Nephew Information not available 08/05/2012 Marital Status Informatio n not available 08/05/2012 What Was The Date Of Your Most Recent Tobacco Screening? 06/30/2018 [id number] Information not available 03/23/2020 How Much Tobacco Do You Smoke? 0.5 PPD [id number] Information not available 03/23/2020 Sex: Unknown Functional [...] SNOMED-CT Code Diagnosis ICD10 Code Diagnosis Note [id number] Nani Baker MD PAIN OFFICE [address] [facility] [address] [facility] [[email or web address]] [place] [address] 08/05/2012 13:21:37 08/05/2012 15:33:38 29164 Nani Baker MD PAIN OFFICE [address] [place] [address] 10/18/2012 14:16:54 10/18/2012 15:51:29 00806 Nani Baker MD PAIN OFFICE [address] [facility] [[email or web address]] [place] [address] 11/18/2012 10:11:02 11/18/2012 15:37:35 52839 Nani Baker MD PAIN OFFICE [address] [place] [address] 01/24/2013 13:25:53 01/24/2013 16:24:59 90840 Nani Baker MD PAIN OFFICE [address] [facility] [[email or web address]] [place] [address] 02/24/2013 10:57:59 02/25/2013 09:00:54 25874 Nani Baker MD PAIN OFFICE [address] [facility] [[email or web address]] [place] [address] 03/23/2013 13:53:07 03/23/2013 15:41:57 Lumbosacral spondylosis without myelopathy 25198187 Displaceme nt of lumbar intervertebral disc without myelopathy 83737600 68837 Nani Baker MD PAIN OFFICE [address] [facility] [[email or web address]] [place] [address] 04/05/2013 12:57:19 04/05/2013 15:43:47 Lumbosacral spondylosis without myelopathy 93267461 Displaceme nt of lumbar intervertebral disc without myelopathy 74674257 Lumbosacra l radiculitis 86297177 19327 Nani Baker MD PAIN OFFICE [address] [facility] [[email or web address]] [place] [address] 05/04/2013 10:54:36 05/04/2013 15:05:24 Lumbosacral spondylosis without myelopathy 51381501 Displaceme nt of lumbar intervertebral disc without myelopathy 95585849 Lumbosacra l radiculitis 47309544 13489 Nani Baker MD PAIN OFFICE [address] [employer] [facility] [[email or web address]] [place] [address] 07/27/2013 09:43:56 07/27/2013 11:42:54 Lumbosacral spondylosis without myelopathy 63229400 Displaceme nt of lumbar intervertebral disc without myelopathy 24492038 Lumbosacra l radiculitis 35572359 65527 Nani Baker MD [facility] PAIN OFFICE [address] [employer] [facility] [[email or web address]] [place] [address] 08/01/2013 13:26:06 08/02/2013 10:33:30 Lumbosacral spondylosis without myelopathy 77158662 Displaceme nt of lumbar intervertebral disc without myelopathy 77260471 Lumbosacra l radiculitis 60634286 71985 Nani Baker MD PAIN OFFICE [address] [employer] [employer] [facility] [[email or web address]] [place] [address] 08/30/2013 10:43:35 09/02/2013 09:22:59 Lumbosacral spondylosis without myelopathy 83770626 Displaceme nt of lumbar intervertebral disc without myelopathy 44667738 Lumbosacra l radiculitis 48989017 41243 Nani Baker MD PAIN OFFICE [address] [employer] [facility] [[email or web address]] [place] [address] 10/06/2013 11:00:49 10/07/2013 11:11:22 Lumbosacral spondylosis without myelopathy 16854767 Displaceme nt of lumbar intervertebral disc without myelopathy 95456801 Lumbosacra l radiculitis 38669336 66525 Nani Baker MD [facility] PAIN OFFICE [address] [employer] [facility] [[email or web address]] [place] [address] 10/24/2013 13:22:09 10/27/2013 09:18:15 Lumbosacral spondylosis without myelopathy 95459900 Displaceme nt of lumbar intervertebral disc without myelopathy 46551864 Lumbosacra l radiculitis 85764206 60516 Nani Baker MD PAIN OFFICE [address] [employer] [employer] [facility] [[email or web address]] [place] [address] 11/07/2013 10:27:07 11/08/2013 14:06:31 Lumbosacral spondylosis without myelopathy 57437780 Displaceme nt of lumbar intervertebral disc without myelopathy 98778180 Lumbosacra l radiculitis 15956829 63669 Nani Baker MD PAIN OFFICE [address] [facility] [[email or web address]] [place] [address] 11/29/2013 10:00:54 12/03/2013 16:50:45 Lumbosacral spondylosis without myelopathy 08443138 Displaceme nt of lumbar intervertebral disc without myelopathy 12295785 Lumbosacra l radiculitis 70238261 47606 Nani Baker MD PAIN OFFICE [email or web address] [facility] [[email or web address]] [place] [address] 12/26/2013 10:21:37 12/27/2013 15:19:55 Lumbosacral spondylosis without myelopathy 68700212 Displaceme nt of lumbar intervertebral disc without myelopathy 29404217 Lumbosacra l radiculitis 08034368 95360 Nani Baker MD PAIN OFFICE [email or web address] [facility] [[email or web address]] [place] [address] 01/17/2014 13:07:43 01/18/2014 15:46:33 Lumbosacral spondylosis without myelopathy 49763497 Displaceme nt of lumbar intervertebral disc without myelopathy 76481072 Lumbosacra l radiculitis 75986111 56368 Nani Baker MD PAIN OFFICE [address] [email or web address] [address] 01/19/2014 10:41:36 01/20/2014 11:12:44 Lumbosacral spondylosis without myelopathy 33687569 Displaceme nt of lumbar intervertebral disc without myelopathy 71298945 Lumbosacra l radiculitis 40148097 93476 Nani Baker MD PAIN OFFICE [email or web address] [facility] [[email or web address]] [place] [address] 02/21/2014 10:49:23 02/21/2014 11:45:38 Lumbosacral spondylosis without myelopathy 91395446 Displaceme nt of lumbar intervertebral disc without myelopathy 38823138 Lumbosacra l radiculitis 06312696 57325 Nani Baker MD [facility] PAIN OFFICE [address] [employer] [employer] [facility] [[email or web address]] [place] [address] 03/29/2014 10:32:34 03/29/2014 11:28:43 Lumbosacral spondylosis without myelopathy 88196377 Displaceme nt of lumbar intervertebral disc without myelopathy 71822897 Lumbosacra l radiculitis 84090288 80465 Nani Baker MD PAIN OFFICE [address] [employer] [address] [facility] [[email or web address]] [place] [address] 04/06/2014 14:07:44 04/06/2014 15:48:45 Lumbosacral spondylosis without myelopathy 61744101 Displaceme nt of lumbar intervertebral disc without myelopathy 15465504 Lumbosacra l radiculitis 47934132 82935 Nani Baker MD PAIN OFFICE [address] [employer] [address] [facility] [[email or web address]] [place] [address] 04/27/2014 13:56:39 04/29/2014 21:26:25 Lumbosacral spondylosis without myelopathy 63481176 Displaceme nt of lumbar intervertebral disc without myelopathy 17083112 Lumbosacra l radiculitis 32186217 38847 Nani Baker MD PAIN OFFICE [address] [employer] [address] [facility] [[email or web address]] [place] [address] 05/17/2014 11:13:27 05/17/2014 15:18:53 Lumbosacral spondylosis without myelopathy 21954927 Displaceme nt of lumbar intervertebral disc without myelopathy 38022008 Lumbosacra l radiculitis 44068192 19215 Nani Baker MD PAIN OFFICE [address] [employer] [facility] [[email or web address]] [place] [address] 08/10/2014 15:17:32 08/16/2014 10:42:28 Lumbosacral spondylosis without myelopathy 67942647 Displaceme nt of lumbar intervertebral disc without myelopathy 44510742 Lumbosacra l radiculitis 22747253 27063 Nani Baker MD PAIN OFFICE [address] [employer] [facility] [[email or web address]] [place] [address] 09/28/2014 14:00:05 10/01/2014 10:50:12 Lumbosacral spondylosis without myelopathy 85114091 Displaceme nt of lumbar intervertebral disc without myelopathy 76324363 Lumbosacra l radiculitis 98612899 Enthesopat hy of hip region 33738235 Compressio n fracture of vertebral column 80524726 82619 Nani Baker MD PAIN OFFICE [email or web address] [place] [address] 01/04/2016 10:22:33 01/12/2016 18:39:32 Lumbosacral spondylosis without myelopathy 41926973 M47.817 Displaceme nt of lumbar intervertebral disc without myelopathy 87267743 M51.26 Enthesopat hy of hip region 48717199 M76.9 47652 Nani Baker MD PAIN OFFICE [address] [email or web address] [address] 12/04/2016 09:35:15 01/11/2017 18:16:46 Lumbosacral spondylosis without myelopathy 05734608 M47.817 Displaceme nt of lumbar intervertebral disc without myelopathy 30854027 M51.26 Enthesopat hy of hip region 73355340 M76.9 96217 Nani Baker MD PAIN OFFICE [address] [email or web address] [address] 02/23/2017 14:52:43 02/25/2017 15:20:57 Displacement of lumbar intervertebral disc without myelopathy 74473008 M51.26 Lumbosacra l radiculitis 06986102 M54.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 84905480 M47.817 47887 Nani Baker MD [facility] PAIN OFFICE [email or web address] [place] [address] 03/17/2017 13:04:51 03/19/2017 11:14:52 Displacement of lumbar intervertebral disc without myelopathy 68215630 M51.26 Lumbosacra l radiculitis 30088416 M54.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 06657462 M47.817 38792 Nani Baker MD [facility] PAIN OFFICE [address] [email or web address] [address] 03/31/2017 09:22:04 04/01/2017 13:37:43 Lumbosacral radiculitis 05944188 M54.17 Displaceme nt of lumbar intervertebral disc without myelopathy 00065096 M51.26 Lumbosacra l spondylosis without myelopathy 09836410 M47.817 51523 Nani Baker MD PAIN OFFICE [address] [email or web address] [address] 04/24/2017 08:50:47 04/24/2017 13:41:37 Lumbosacral radiculitis 55131695 M54.17 Displaceme nt of lumbar intervertebral disc without myelopathy 21129007 M51.26 Lumbosacra l spondylosis without myelopathy 71783993 M47.817 81027 Nani Baker MD PAIN OFFICE [address] [employer] [place] [address] 05/19/2017 14:06:27 05/21/2017 11:21:34 Lumbosacral radiculitis 76044924 M54.17 Displaceme nt of lumbar intervertebral disc without myelopathy 28867271 M51.26 Lumbosacra l spondylosis without myelopathy 84779613 M47.817 25257 Nani Baker MD PAIN OFFICE [address] [employer] [place] [address] 10/07/2017 11:31:45 10/07/2017 14:36:01 Displacement of lumbar intervertebral disc without myelopathy 30228117 M51.26 Lumbosacra l radiculitis 54536587 M54.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 32330656 M47.817 73617 Nani Baker MD PAIN OFFICE [address] [employer] [address] [facility] [[email or web address]] [place] [address] 11/09/2017 15:30:47 11/13/2017 08:33:20 Postherpetic neuralgia 2534827 B02.29 Lumbosacra l radiculitis 62656276 M54.17 Displaceme nt of lumbar intervertebral disc without myelopathy 80417740 M51.26 Lumbosacra l spondylosis without myelopathy 14190932 M47.817 26601 Nani Baker MD [facility] PAIN OFFICE [address] [place] [address] 11/25/2017 10:19:02 11/26/2017 10:26:57 Displacement of lumbar intervertebral disc without myelopathy 62019462 M51.26 Lumbosacra l radiculitis 90223944 M54.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 65375132 M47.817 31204 Nani Baker MD [facility] PAIN OFFICE [address] [place] [address] 01/26/2018 11:15:45 01/28/2018 09:21:50 Displacement of lumbar intervertebral disc without myelopathy 74594121 M51.26 Lumbosacra l radiculitis 27153146 M54.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 56930867 M47.817 78155 Nani Baker MD [facility] PAIN OFFICE [address] [email or web address] [address] 03/22/2018 14:23:54 03/22/2018 16:13:18 Displacement of lumbar intervertebral disc without myelopathy 71711050 M51.26 Lumbosacra l radiculitis 57007033 M54.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 04082215 M47.817 94660 Nani Baker MD SV PAIN OFFICE [address] [email or web address] [address] 04/07/2018 11:29:53 04/08/2018 10:07:21 Displacement of lumbar intervertebral disc without myelopathy 24768886 M51.26 Lumbosacra l radiculitis 36564985 M54.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 37597107 M47.817 54286 Nani Baker MD [facility] PAIN OFFICE [address] [place] [address] 04/20/2018 13:09:21 04/20/2018 15:17:00 Displacement of lumbar intervertebral disc without myelopathy 47123990 M51.26 Lumbosacra l radiculitis 37142142 M54.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 96607693 M47.817 76438 Nani Baker MD [facility] PAIN OFFICE [address] [email or web address] [address] 05/10/2018 10:04:19 05/10/2018 11:17:05 Displacement of lumbar intervertebral disc without myelopathy 85093792 M51.26 Lumbosacra l radiculitis 34817416 M54.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 85422172 M47.817 87631 Nani Baker MD [facility] PAIN OFFICE [address] [email or web address] [address] 05/19/2018 09:56:28 05/19/2018 15:41:12 Displacement of lumbar intervertebral disc without myelopathy 13070979 M51.26 Lumbosacra l radiculitis 49407203 M54.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 17986690 M47.817 [id number] Nani Baker MD [facility] [address] [email or web address] [address] 05/26/2018 13:50:26 05/26/2018 15:01:39 Compression fracture of vertebral column 53018870 M48.50XA Lumbosacra l radiculitis 05980738 M54.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 95367744 M47.817 Displaceme nt of lumbar intervertebral disc without myelopathy 23948296 M51.26 91634 Nani Baker MD [facility] [email or web address] [place] [address] 06/30/2018 13:04:08 06/30/2018 15:53:01 Compression fracture of vertebral column 74582733 M48.50XA Lumbosacra l radiculitis 89639583 M54.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 73116518 M47.817 Displaceme nt of lumbar intervertebral disc without myelopathy 30313102 M51.26 55951 Nani Baker MD [facility] [address] [email or web address] [address] 02/18/2019 11:22:38 02/24/2019 16:59:49 Displacement of lumbar intervertebral disc without myelopathy 99896186 M51.26 Lumbosacra l radiculitis 85462999 M54.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 31876430 M47.817 86703 Nani Baker MD PAIN OFFICE [address] [employer] [place] [address] 03/16/2019 09:37:32 03/18/2019 15:35:03 Displacement of lumbar intervertebral disc without myelopathy 51870722 M51.26 Lumbosacra l radiculitis 43023287 M54.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 79183549 M47.817 31651 Nani Baker MD PAIN OFFICE [address] [place] [place] [address] 04/27/2019 13:01:33 04/29/2019 16:03:44 Displacement of lumbar intervertebral disc without myelopathy 25550543 M51.26 Lumbosacra l radiculitis 98818245 M54.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 02948116 M47.817 [id number] Nani Baker MD PAIN OFFICE [address] [employer] [place] [place] [address] 06/29/2019 11:44:47 06/29/2019 14:05:58 Displacement of lumbar intervertebral disc without myelopathy 34628604 M51.26 Lumbosacra l radiculitis 76617486 M54.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 14352623 M47.817 33247 Nani Baker MD PAIN OFFICE [address] [employer] [place] [address] 08/08/2019 10:52:11 08/08/2019 11:32:02 Displacement of lumbar intervertebral disc without myelopathy 17528285 M51.26 Lumbosacra l radiculitis 02740610 M54.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 69383465 M47.817 03265 Nani Baker MD [facility] [address] [place] [address] 10/24/2019 11:08:07 10/24/2019 11:23:30 Displacement of lumbar intervertebral disc without myelopathy 05014575 M51.26 Lumbosacra l radiculitis 58986894 M54.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 31959986 M47.817 73444 Nani Baker MD [facility] [address] [email or web address] [place] [address] 10/25/2019 13:58:37 10/27/2019 10:16:27 Displacement of lumbar intervertebral disc without myelopathy 19161575 M51.26 Lumbosacra l radiculitis 08236197 M54.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 13859174 M47.817 30362 Nani Baker MD [facility] [address] [facility] [[email or web address] [place] [address] 11/24/2019 09:33:21 11/24/2019 09:59:39 Displacement of lumbar intervertebral disc without myelopathy 55935182 M51.26 Lumbosacra l radiculitis 83557594 M54.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 63363459 M47.817 [id number] Nani Baker MD [facility] [address] [facility] [[email or web address]] [place] [address] 02/08/2020 08:30:06 02/08/2020 09:36:12 Displacement of lumbar intervertebral disc without myelopathy 60268290 M51.26 Lumbosacra l radiculitis 25195470 M54.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 61415630 M47.817 06776 Nani Baker MD [facility] [address] [facility] [[email or web address]] [place] [address] 03/13/2020 14:47:56 03/13/2020 16:08:29 Displacement of lumbar intervertebral disc without myelopathy 31407725 M51.26 Lumbosacra l radiculitis 78670784 M54.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 88866204 M47.817 40051 Nani Baker MD [facility] [address] [place] [address] 05/02/2020 09:37:41 05/02/2020 09:45:38 Displacement of lumbar intervertebral disc without myelopathy 01865914 M51.26 Lumbosacra l radiculitis 99878029 M54.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 75723871 M47.817 97578 Nani Baker MD [facility] [address] [place] [address] 06/13/2020 09:22:04 06/13/2020 13:57:59 Displacement of lumbar intervertebral disc without myelopathy 52128797 M51.26 Lumbosacra l radiculitis 10954961 M54.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 90305822 M47.817 [id number] Nani Baker MD [facility] [address] [employer] [place] [address] 08/02/2020 14:05:18 08/02/2020 14:11:48 Displacement of lumbar intervertebral disc without myelopathy 96081643 M51.26 Lumbosacra l radiculitis 68626433 M54.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 79054994 M47.817 75505 Nani Baker MD [facility] [address] [place] [address] 09/12/2020 10:50:25 09/12/2020 16:08:53 Displacement of lumbar intervertebral disc without myelopathy 37734988 M51.26 Lumbosacra l radiculitis 98424059 M54.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 27557522 M47.817 73572 Nani Baker MD [facility] [address] [place] [address] 11/09/2020 11:12:28 11/14/2020 11:32:15 Displacement of lumbar intervertebral disc without myelopathy 33453916 M51.26 Lumbosacra l radiculitis 75574240 M54.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 24985583 M47.817 Health Concerns Section Related Observation LastModified by Organization Detai ls LastModified Time None Recorded Concern Status LastModified by Organization Details LastModified Time None Recorded Advance Directives Directive None Recorded Payers Encounter Date Sequence Insurance Name Policy Number Policy Richardson Covered Member ID Richardson Member ID Guarantor Name 05/02/2020 1 [facility] PRIOR TO 2022 - DUAL ELIGIBLE (MEDICARE REPLACEMENT/ADV ANTAGE - HMO) Tova oJhn [id number] Tova Krishnadarnell 06/13/2020 1 [facility] - DOS PRIOR TO 2022 - DUAL ELIGIBLE (MEDICARE REPLACEMENT/ADV ANTAGE - HMO) Tova John [id number] Tova John 08/02/2020 1 [facility] - DOS PRIOR TO 2022 - DUAL ELIGIBLE (MEDICARE REPLACEMENT/ADV ANTAGE - HMO) Tova John [id number] Tova Lopez 09/12/2020 1 [facility] - DOS PRIOR TO 2022 - DUAL ELIGIBLE (MEDICARE REPLACEMENT/ADV ANTAGE - HMO) Tova John [id number] Tova Kellerdarnell 11/09/2020 1 [facility] - DOS PRIOR TO 2022 - DUAL ELIGIBLE (MEDICARE REPLACEMENT/ADV ANTAGE - HMO) Tova John [id number] Tova John Notes Date Note Type Note Provider Name [...] or bowel incontinence. Nani Baker MD [address] [facility] , [address], [place], [address], [place] - [facility] 05/07/2020 11:11:41 06/13/2020 text/html She is here for a lumbar epidural steroid injection under fluoroscopic guidance. She has stopped Xarelto for the procedure. Nani Baker MD [address] [facility] , [address], [place], [address], [place] - [facility] 06/13/2020 15:54:04 08/02/2020 text/html This [...] a cast . She is going to [place] for a trip to see her sons. Nani Baker MD [address] [facility] , [address], [place], [address], [place] - [facility] 08/10/2020 09:32:56 09/12/2020 text/html She is here for a lumbar epidural steroid injection under fluoroscopic guidance. She has stopped Xarelto for the procedure.She is S/P Fall at home with right wrist injury Nani Baker MD [address] [facility] , [address], [place], [address], [place] - [facility] 09/12/2020 16:20:02 11/09/2020 text/html This is a follow up . She states she has recently fallen at home and has increasing low back pain. She had X-rays done at [facility] which shows multiple compression fractures L1, L2 and L4 with an increasing compression fracture at L4 which appears new. She states her primary care physician is arranging for her to have a vertebroplasty done. She states she is pretty bed ridden due to pain. She has no history of bladder or bowel incontinence. Nani Baker MD [address] [facility] , [address], [place], [address], [facility] - [facility] 11/14/2020 15:46:05 OBGyn Episode No OBEpisode recorded.
--- OUTSIDE RECORDS SUMMARY | 2024-10-11 16:33 | XMS_ITS | Patient Health Record ---
Author Organization [facility] Address [address] [place] [address] Support Name Relationship Address Phone MARRY HYATT Guarantor Unknown [phone] Reason For Referral No Information Plan Of Treatment No Information
== END 2024-10-11 16:41 | disposition home or self-care (01) ==
LOC: HO.HMCC 15:22
PROVIDERS: PCP Nurse Practitioner Family; Visit Provider Nurse Practitioner Family
DX: Z00.01 Encounter for general adult medical examination with abnormal findings (principal); E55.9 Vitamin D deficiency, unspecified; R09.89 Other specified symptoms and signs involving the circulatory and respiratory systems

== ENCOUNTER → 2024-10-11 15:22 | Outpatient (BNVA) | payer OTHER, SELFPAY | PROVIDERS: PCP Nurse Practitioner Family; Visit Provider Nurse Practitioner Family | DX: Z00.01 Encounter for general adult medical examination with abnormal findings (principal); E55.9 Vitamin D deficiency, unspecified; R09.89 Other specified symptoms and signs involving the circulatory and respiratory systems | CPT/HCPCS: 96127; 99397 ==

== ENCOUNTER 2025-04-06 12:43 | Outpatient (AMB) | payer OTHER, SELFPAY ==
--- OUTSIDE RECORDS SUMMARY | 2024-02-16 11:30 | XMS_ITS ---
Author Organization [facility] Address [address] [place] [address] Care Team Providers Care Ship Pilot Dispatcher Name Role Phone Jung Randhawa Primary Care Provider Unav ailable Mireya Darby [phone] REASON FOR VISIT Seen Sooner Encounters Encounter Location Date Provider Diagnosis [facility] [address] [place] [address] 02/16/2024 Mireya Darby Plan Of Treatment Next Appt Details Provider Name:Mireya castillo, 06/20/2025 02:00:00 PM, [address] [place], [address], Progress Notes * Tova LOPEZDOB:1945 (80 yo F)Acc No.[id number]:02/16/2024 Progress Note Patient: Daija MARQUESith Provider: Rocio Darby DPM :1945 A ge:79 Y S ex:Female Date:02/16/2024 Address:[address] [id number] Pcp:MONIQUE Yeung Subjective: * Chief Complaints: * [...] 02/16/2024 Generated for Jacinto delatorre/Love/Tez on: 1 03:35 PM EDT
--- OUTSIDE RECORDS SUMMARY | 2024-12-20 11:30 | XMS_ITS ---
Author Organization [facility] Address [address] [place] [address] Care Team Providers Care Head Batcher Name Role Phone Jung Randhawa Primary Care Provider Unav Mireya Khan Unavailable [phone] Allergies Allergen (clinical drug ingredient) Drug/Non Drug [...] Active Encounters Encounter Location Date Provider Diagnosis [facility] [address] [place] [address] 12/20/2024 Mireya Darby Plan Of Treatment Next Appt Details Provider Name:Mireya Palacios Jase anna, 06/20/2025 02:00:00 PM, [address] [place], [address], Progress Notes * Tova LOPEZDOB:1945 (80 yo F)Acc No.[id number]:12/20/2024 Progress Note Patient: Tova MARQUES Provider: Rocio Darby DPM :1945 A ge:79 Y S ex:Female Date:12/20/2024 Address: [address], [place] , [facility] Pcp:Jung Schaefer NP-BC Subjective: * Chief Complaints: [...] 12/20/2024 Generated for Jacinto delatorre/Love/Tez on: 1 03:34 PM EDT
[2025-04-06 12:50] VITALS: BP 104/62; PULSE 92; BMI 20.8
--- NOTE | 2025-04-06 12:50 | MHC.OFFVIS ---
Vital Signs 04/06/25 12:50 Height 5 ft Weight 106 lb 4.205 oz BMI 20.8 BP 104/62 Blood Pressure Location Lt brachial Position Sitting Pulse 92 Pulse Source Pulse Oximeter Intake Visit Reasons: 6 mth f/up Supervisor Metal Placing Required: No Allergies Cephalosporins (CEPHALOSPORINS) Allergy (Unknown, Verified 04/06/25 12:53) UNKNOWN gabapentin (GABAPENTIN) Allergy (Unknown, Verified 04/06/25 12:53) UNKNOWN mirtazapine (From REMERON) Allergy (Unknown, Verified 04/06/25 12:53) UNKNOWN naproxen Allergy (Unknown, Verified 04/06/25 12:53) UNKNOWN tramadol Allergy (Unknown, Verified 04/06/25 12:53) UNKNOWN bupropion (From WELLBUTRIN) Adverse Reaction (Unknown, Verified 04/06/25 12:53) Shaky Medication List - Last Reconciled 04/06/25 by NATALIE CharlesC albuterol sulfate 90 mcg/actuation 2 puffs PO Q6H PRN albuterol sulfate 2.5 mg (3 mL) inhalation TID atorvastatin 40 mg PO DAILY cetirizine 10 mg PO DAILY cholecalciferol (vitamin D3) 50 mcg PO DAILY clonazepam 0.5 mg PO BID cyclobenzaprine 5 mg PO Q8H PRN diltiazem HCl ER (Tiadylt ER) 120 mg PO DAILY [Ensure Chocolate ] fluticasone propionate 110 mcg/actuation 1 puff inhalation BID ipratropium-albuterol 0.5 mg-3 mg(2.5 mg base)/3 mL 3 mL inhalation Q4-6H PRN magnesium oxide 420 mg PO BEDTIME meclizine 25 mg PO DAILY PRN rivaroxaban (Xarelto) 20 mg PO DAILY 90 days sumatriptan succinate take 1 tab at onset of headache; if no relief may repeat 1 tab after at least 2 hrs; max = 4 tabs/24 hr PO trazodone 150 mg PO BEDTIME HPI HPI 6 mth f/up: Details: Tova is a 80-year-old female with past medical history of hypertension, hyperlipidemia, COPD, mild carotid stenosis, nonobstructive CAD, paroxysmal atrial fibrillation, COPD who presents for follow-up. Today she reports she has been doing well since her last visit in September. She denies any chest discomfort at rest or with activity. She does have shortness of breath with exertion which she states has been unchanged. She has been working on cutting back her smoking and is down to 2 cigaretts per day. Admits to marijuana used. No PND, orthopnea or edema. No palpitations, lightheadedness, presyncope, syncope, falls. She has home O2 but states the tanks are to heavy for her to take out of the house. She is going to talk with pulmonology about getting inogen machine. She is chronic back, hip and thigh pain which persists. She uses a cane for ambulation. She is taking her meds as directed. One of her sons is living with her at this time and will be moving into trailer that is behind hers. [facility] Medical History Generalized headaches Nocturnal hypoxemia Basal cell carcinoma History of COVID-19 (~06/2021) Personal history of nicotine dependence Osteopenia (~2009) History of non-ST elevation myocardial infarction (NSTEMI) (~04/2016) COPD (chronic obstructive pulmonary disease) Depression with anxiety Brain aneurysm Bilateral carotid artery stenosis PAF (paroxysmal atrial fibrillation) (~04/2016) Atherosclerotic cardiovascular disease Surgical History History of inguinal hernia repair, bilateral (~2018) History of skin surgery History of arthroscopic surgery of shoulder (~2009) History of carpal tunnel release History of bladder surgery History of thumb surgery History of tubal ligation History of total hysterectomy Family History Father No problems noted. Mother No problems noted. Brother Stroke Social History Household Members: None Housing: Other Housing Other:: mobile home Are you a primary home care rn to a significant other at home: No Do you presently have visiting nurse or other home services: Yes ([facility] q6 months) Comment: MEDICATED Patient Tobacco Use Status: Current everyday Tobacco user Tobacco use type: Cigarette Cigarette Packs Per Day: 0.5 Cigarettes Per Day: 7 Years Smoked: 68 e-Cigarette/Vaping Use: Former Use Substance Use Type: Marijuana Advance Directives Date on File: 08/03/23 service: No Current occupational status: retired and disabled Cognitive needs: No Hearing needs: No Vision needs: No Review of Systems Const All systems reviewed & are unremarkable except as noted in HPI and below ENT Denies dizziness Card Denies chest pain, Denies chest pain at rest, Denies chest pain with activity, Denies rapid heart rate, Denies pedal edema, Denies edema, Denies leg edema, Denies lightheadedness, Denies palpitations, Denies dyspnea, Reports dyspnea on exertion and Denies orthopnea Resp Denies cough, Denies dyspnea and Reports dyspnea on exertion GI Denies hematochezia and Denies change in stool character Musc Denies abnormal gait, Denies limited range of motion, Denies muscle cramps, Denies muscle weakness, Denies numbness, Denies radiating pain into limb, Denies stiffness and Denies tingling Neuro Denies abnormal gait, Denies dizziness, Denies numbness and Denies tingling Endo Denies palpitations Physical Exam Vital Signs: Last Vital Signs Pulse 92 04/06/25 12:50 BP 104/62 04/06/25 12:50 BMI result Body Mass Index 20.8 Const General: cooperative, healthy appearing, comfortable and no acute distress Orientation/consciousness: patient oriented x3 Neck Neck: Yes normal visual inspection Resp Effort & Inspection: normal respiratory effort Auscultation: clear to auscultation bilaterally, no crackles, no rales, no rhonchi and no wheezes Cardio Rate: regular rate Rhythm: regular rhythm Heart sounds: S1 normal heart sound present, S2 normal heart sound present, no gallops, no murmurs and no rubs Skin General skin exam: no rashes or lesions noted Neuro General: patient oriented x3 Extrem General: Yes normal to inspection, No no pedal edema and No calf tenderness Psych Appearance: grossly normal Mental Status: mental status grossly normal Speech and movement: Normal speech and movement present Assessment & Plan Assessment & Plan (1) Atherosclerotic cardiovascular disease: Comment: Coronary CT from 2018-moderate calcific plaque, most evident in the mid LAD where it is nearly circumferential with moderate luminal narrowing in the 50-69% range. Moderate nearly circumferential calcific plaque in the mid RCA with about 50% stenosis. Mild scattered narrowings elsewhere. Code(s): I25.10 - Atherosclerotic heart disease of [place] coronary artery without angina pectoris Category: Medical Plan: Coronary CTA scan 2018 showed moderate nonobstructive disease. Nuclear stress test done 02/26/2023 showed normal myocardial perfusion imaging. Echocardiogram done 10/26/2023 showing EF 60-65%, no regional wall motion abnormalities and no valve abnormalities. Currently no anginal symptoms. She does have chronic stable exertional shortness of breath which can be explained by COPD and smoking. Continue med management for stable CAD. She has not on aspirin as she is on Xarelto. She is on atorvastatin with ideal LDL goal less than 70. She is on diltiazem for good blood pressure and heart rate control. Blood pressure today 104/62. Beta-babs is avoided due to COPD. Signs and symptoms of angina reviewed with her. Updated labs are due, pt reminded. Smoking cessation discussed. Cardiology follow-up 6 months, sooner if needed. (2) PAF (paroxysmal atrial fibrillation): Onset Date: ~04/2016 Comment: (onset 04/2016) Code(s): I48.0 - Paroxysmal atrial fibrillation Category: Medical Plan: History of paroxysmal atrial fibrillation. No recent palpitations to indicate recurrent AF. EKG last visit showing normal sinus rhythm. Clinically in SR on exam. Continue diltiazem for heart rate control. Continue Xarelto for anticoagulation. No bleeding issues reported. Labs ordered. (3) Bilateral carotid artery stenosis: Code(s): I65.23 - Occlusion and stenosis of bilateral carotid arteries Category: Medical Plan: History of bilateral carotid stenosis. CTA of the head and neck done 04/18/2020 shows atherosclerotic disease of bilateral ICAs causing less than 50% stenosis. Carotid ultrasound done 10/26/2023 shows right and left ICA each 0-49% stenosis. Continue atorvastatin. Plan Time spent on chart review, documentation, interview and assessment Coding Level of Care Code Est Pt Level 4 (34577) Complex EM visit Add On G2211 Diagnoses Atherosclerotic cardiovascular disease I25.10 PAF (paroxysmal atrial fibrillation) I48.0 Bilateral carotid artery stenosis I65.23 Time Spent (min) 28
--- OUTSIDE RECORDS SUMMARY | 2025-04-06 15:35 | XMS_ITS | Data Portability ---
Author Organization [facility] Address [address] [place] [address] Care Team Providers Care Director Executive Communications Name Role Phone RICKY WATERS Primary Care Provider ALFONZO STEVENSON Trade Analyst Assessment Encounter Date Assessment Date Assessment LastModified [...] booked after insurance approval. 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 She is on Xarelto and needs to stop the medication three days prior to the injection per anticoagulation guidelines. Her behavioral health assistant states she can stop the medication for [...] booked after insurance approval. 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 She is on Xarelto and needs to stop the medication three days prior to the injection per anticoagulation guidelines. Her behavioral health assistant states she can stop the medication for [...] up in eight weeks. [email or web address] Not available 09/12/2020 16:05:20 11/09/2020 11/09/2020 Tova [...] call after vertebroplasty for further follow up. [email or web address] Not available 11/14/2020 11:31:13 Plan of Treatment [...] By Organization Details Last Modified Time 05/02/2020 11500 She was advised to continue with activities [...] care. [email or web address] Not available 05/02/2020 09:45:02 06/13/2020 20556 She was advised to continue with activities as tolerated and benefits of smoking cessation were reviewed with her. [email or web address] Not available 06/13/2020 10:02:50 08/02/2020 01907 She was advised to continue with activities [...] care. [email or web address] Not available 08/02/2020 14:07:27 09/12/2020 67342 She was advised to continue with activities as tolerated and benefits of smoking cessation were reviewed with her. [email or web address] Not available 09/12/2020 16:05:23 11/09/2020 32641 She was advised to continue with activities [...] spine No observ ation record ed. eron [facility] [address] [place], [address], 11/14/2020 11:33:18 Result Notes None recorded. Problems Name Problem SNOMED Code Status Onset Date Resolution Date Notes Provider Name and Address Organization Details Recorded Time Lumbosacral spondylosis without myelopathy 89685634 Chidi mas MD [address] , [address], [place], [address], [place] [facility] 6 18:39:02 Displacement of lumbar intervertebral disc without myelopathy 94406022 Chidi mas MD [address] , [address], [place], [address], [place] [facility] 6 18:39:03 Enthesopathy of hip region 63259615 Chidi mas MD [address] , [address], [place], [address], [place] [facility] 6 18:39:03 Compression fracture of vertebral column 68913410 Chidi mas MD [address] , [address], [place], [address], [place] [facility] 6 18:29:06 Postherpetic neuralgia 9077485 Active Nani mas MD [address] , [address], [facility] [place], [address], [place] [facility] 8 16:02:07 Lumbosacral radiculitis 51239495 Active Nani mas MD [address] , [address], [facility] [place], [address], [place] [facility] 6 18:29:06 Problem Notes None recorded. Procedures Surgical History Date Name Laterality Status Provider Name and Address Organization Details Recorded Time 09/13/19 21 Lumbar Epidural steroid injection under fluoroscopic guidance completed Nani Baker MD [address] , [address], [place], [address], [place] [facility] 09/12/2020 16:06:14 06/13/19 21 Lumbar Epidural steroid injection under fluoroscopic guidance completed Nani Baker MD [address] , [address], [place], [address], [place] [facility] 06/13/2020 10:03:35 03/13/20 20 Lumbar Epidural steroid injection under fluoroscopic guidance completed Nani Baker MD [address] , [address], [place], [address], [place] [facility] 03/13/2020 15:36:36 10/25/19 20 Lumbar Epidural steroid injection under fluoroscopic guidance completed Nani Baker MD [address] , [address], [place], [address], [place] [facility] 10/27/2019 09:47:43 06/29/19 20 Lumbar Epidural steroid injection under fluoroscopic guidance completed Nani Baker MD [address] , [address], [place], [address], [place] [facility] 06/29/2019 13:58:52 03/16/20 19 Lumbar Epidural steroid injection under fluoroscopic guidance completed Nani Baker MD [address] , [address], [place], [address], [place] [facility] 03/18/2019 15:32:17 05/19/20 18 Lumbar Epidural steroid injection under fluoroscopic guidance completed Nani Baker MD [address] , [address], [place], [address], [place] [facility] 05/19/2018 15:37:32 04/20/20 18 Greater Trochanteric Bursa Steroid Injection completed Nani Baker MD [address] , [address], [place], [address], [place] [facility] 04/20/2018 14:17:28 04/07/20 18 Greater Trochanteric Bursa Steroid Injection completed Nani Baker MD [address] , [address], [place], [address], [place] [facility] 04/07/2018 13:33:14 01/27/20 18 Greater Trochanteric Bursa Steroid Injection completed Nani Baker MD [address] , [address], [place], [address], [place] [facility] 01/28/2018 08:59:37 11/26/19 18 Fluoroscopic Guided Lumbar Facet Steroid Injections of levels completed Nani Baker MD [address] , [address], [place], [address], [place] [facility] 11/26/2017 10:21:29 10/08/19 18 Lumbar Epidural steroid injection under fluoroscopic guidance completed Nani Baker MD [address] , [address], [place], [address], [place] [facility] 10/07/2017 13:42:01 05/19/20 17 Greater Trochanteric Bursa Steroid Injection completed Nani Baker MD [address] , [address], [place], [address], [place] [facility] 05/21/2017 11:06:00 03/17/20 17 Lumbar Epidural steroid injection under fluoroscopic guidance completed Nani Baker MD [address] , [address], [place], [address], [place] [facility] 03/17/2017 13:42:48 04/06/20 14 Lumbar Epidural steroid injection under fluoroscopic guidance completed Nani Baker MD [address] , [address], [place], [address], [place] [facility] 04/06/2014 15:46:14 01/20/20 14 Radiofrequency of Lumbar/Sacral medial branches supplying the facets under fluoroscopic guidance completed Nani Baker MD [address] , [address], [place], [address], [place] [facility] 01/20/2014 11:09:57 12/27/19 14 Radiofrequency of Lumbar/Sacral medial branches supplying the facets under fluoroscopic guidance completed Nani Baker MD [address] , [address], [place], [address], [place] [facility] 12/28/2013 11:18:21 11/08/19 14 Fluoroscopic Guided Lumbar Facet Steroid Injections of levels completed Nani Baker MD [address] , [address], [place], [address], [place] [facility] 11/08/2013 15:17:09 10/25/19 14 Fluoroscopic Guided Lumbar Facet Steroid Injections of levels completed Nani Baker MD [address] , [address], [place], [address], [place] [facility] 10/27/2013 09:17:13 08/01/19 14 Lumbar Epidural steroid injection under fluoroscopic guidance completed Nani Baker MD [address] , [address], [place], [address], [place] [facility] 08/01/2013 14:24:11 04/05/20 13 Fluoroscopic Guided Lumbar Facet Steroid Injections of levels completed Nani Baker MD [address] , [address], [place], [address], [place] [facility] 04/06/2013 09:16:32 03/23/20 13 Fluoroscopic Guided Lumbar Facet Steroid Injections of levels completed Nani Baker MD [address] , [address], [place], [address], [place] [facility] 03/25/2013 11:35:45 01/25/20 13 Lumbar Epidural steroid injection under fluoroscopic guidance completed Nani Baker MD [address] , [address], [place], [address], [place] [facility] 01/24/2013 16:24:03 10/19/19 13 Lumbar Epidural steroid injection under fluoroscopic guidance completed Nani Baker MD [address] , [address], [place], [address], [place] [facility] 10/19/2012 09:47:49 Other completed Nani Baker MD [address] , [address], [place], [address], [place] [facility] 11/08/2013 15:15:18 Tubal Ligation completed Armida Darbyzier [place] [facility] 08/05/2012 14:22:46 Hysterectomy completed Armida Darbyzier [facility] 08/05/2012 14:25:50 Other completed Armidathierno DarbyHubbard [place] [facility] 08/05/2012 14:22:46 Other completed Armidathierno Guidoer [place] [facility] 08/05/2012 14:25:50 Arthroscopic Surgery completed Armidathierno Hubbard [place] [facility] 08/05/2012 14:25:50 Imaging Results None recorded. Procedure Notes None recorded. Medical Equipment None Reported. Allergies Allergen ID Allergen Name Allergen Category Reaction Reaction Severity Criticality Documentation Date Start Date Code Code System Note Provider Name and Address Organization Details Recorded Time 58581 naproxen medicatio n Not available Not available Not available 02/23/2017 7258 RxNorm Armida Darbyzier linda, [place] [facility] 7 15:04:34 01881 clonidine medicatio n Not available Not available Not available 02/23/2017 2599 RxNorm Armida Darbyzier linda, [place] [facility] 7 15:04:42 32430 Wellbutri n medicatio n Not available Not available Not available 02/23/2017 78984 RxNorm Armida Darbyzier linda, [place] [facility] 7 15:05:01 20964 mirtazapi ne medicatio n Not available Not available Not available 02/23/2017 29322 RxNorm Armida mckeon, [place] [facility] 7 15:05:39 4741 Remeron medicatio n Not available Not available Not available 08/05/2012 43762 4 RxNorm Armida mckeon, [place] [facility] 3 14:22:46 4742 morphine medicatio n respirato ry distress Not available Not available 08/05/2012 7052 RxNorm Armida mckeon, [place] [facility] 4 10:46:06 5361 sulindac medicatio n arthralgi a (joint pain) Not available Not available 10/18/2012 56691 RxNorm Armida mckeon, [place] [facility] 3 14:30:10 6541 tramadol medicatio n headache Not available Not available 02/24/2013 57277 RxNorm Nani mas MD [facility] [address], [facility], [address] [facility] [place] [facility] 9 10:01:55 9401 Lyrica medicatio n headache Not available Not available 03/29/2014 62668 1 RxNorm Armida mckeon, [place] - [place] [...] Not Available Not Available Not Available Afluria 8093-8568(P F) 45 mcg (15 mcg x 3)/0.5 [...] Available Not Available Not Available Fluzone High-Dose 7941-7258 (PF) 180 mcg/0.5 mL intramuscul ar syringe [...] in Arterial blood by Pulse oximetry Systolic And Diastolic Provider Name and Address Organization Details Last Updated DateTime 1 154.94 cm 97 /min 96 % 96 % 149/75 mm[Hg] Katie Chris [facility] 1 09:36:50 Date Recorded Body height Heart rate Oxygen saturation Oxygen saturation in Arterial blood by Pulse oximetry Systolic And Diastolic Provider Name and Address Organization Details Last Updated DateTime 1 154.94 cm 93 /min 96 % 96 % 142/100 mm[Hg] Katie Chris [facility] 1 11:00:08 Social History Question Answer Notes LastModified by [employer] Details LastModified Time Tobacco Smoking Status Former Smoker She is on a nicotine patch and states she has quit. Not Available [facility] 03/23/2020 03:16:11 Which Illicit Or Recreational Drugs Have You Used? Marijuana [id number] Information not available 03/23/2020 Education 12 Information no t available 08/05/2012 Live Alone Or With Others? With Others Nephew [email or web address] Information not available 08/05/2012 Marital Status [email or web address] Informatio n not available 08/05/2012 What Was The Date Of Your Most Recent Tobacco Screening? 06/30/2018 [id number] Information not available 03/23/2020 How Much Tobacco Do You Smoke? 0.5 PPD [id number] Information not available 03/23/2020 Sex: Unknown Functional Status Question Answer Note LastModified by [employer] [facility] Details LastModified Time What is your level of alcohol consumption? None [id number] Information not available 03/23/2020 Are you currently employed? Yes Disabled [id number] Information not available 03/23/2020 Mental Status None recorded. Family History Nothing [...] Diagnosis SNOMED-CT Code Diagnosis ICD10 Code Diagnosis IMO Codes Diagnosis Note [id number] Nani Baker MD PAIN OFFICE [address] [place] [address] 08/05/2012 13:21:37 08/05/2012 15:33:38 45784 Nani Baker MD PAIN OFFICE [address] [facility] [place] [address] 10/18/2012 14:16:54 10/18/2012 15:51:29 21063 Nani Baker MD PAIN OFFICE [address] [place] [address] 11/18/2012 10:11:02 11/18/2012 15:37:35 97938 Nani Baker MD PAIN OFFICE [address] [place] [address] 01/24/2013 13:25:53 01/24/2013 16:24:59 54135 Nani Baker MD PAIN OFFICE [address] [place] [address] 02/24/2013 10:57:59 02/25/2013 09:00:54 77931 Nani Baker MD PAIN OFFICE [address] [place] [address] 03/23/2013 13:53:07 03/23/2013 15:41:57 Lumbosacral spondylosis without myelopathy 13190618 Displaceme nt of lumbar intervertebral disc without myelopathy 89723691 97861 Nani Baker MD PAIN OFFICE [address] [facility] [place] [address] 04/05/2013 12:57:19 04/05/2013 15:43:47 Lumbosacral spondylosis without myelopathy 42753183 Displaceme nt of lumbar intervertebral disc without myelopathy 66951928 Lumbosacra l radiculitis 68118654 07863 Nani Baker MD PAIN OFFICE [address] [facility] [place] [address] 05/04/2013 10:54:36 05/04/2013 15:05:24 Lumbosacral spondylosis without myelopathy 57453144 Displaceme nt of lumbar intervertebral disc without myelopathy 41160825 Lumbosacra l radiculitis 69939167 00431 Nani Baker MD PAIN OFFICE [address] [place] [address] 07/27/2013 09:43:56 07/27/2013 11:42:54 Lumbosacral spondylosis without myelopathy 39404790 Displaceme nt of lumbar intervertebral disc without myelopathy 05380051 Lumbosacra l radiculitis 92772824 06566 Nani Baker MD PAIN OFFICE [address] [facility] [place] [address] 08/01/2013 13:26:06 08/02/2013 10:33:30 Lumbosacral spondylosis without myelopathy 57099344 Displaceme nt of lumbar intervertebral disc without myelopathy 23666870 Lumbosacra l radiculitis 69820926 63873 Nani Baker MD PAIN OFFICE [address] [facility] [place] [address] 08/30/2013 10:43:35 09/02/2013 09:22:59 Lumbosacral spondylosis without myelopathy 58097772 Displaceme nt of lumbar intervertebral disc without myelopathy 87285670 Lumbosacra l radiculitis 48458032 43375 Nani Baker MD PAIN OFFICE [address] [facility] [place] [place] [address] 10/06/2013 11:00:49 10/07/2013 11:11:22 Lumbosacral spondylosis without myelopathy 48140250 Displaceme nt of lumbar intervertebral disc without myelopathy 26479399 Lumbosacra l radiculitis 88650791 43438 Nani Baker MD PAIN OFFICE [address] [facility] [place] [place] [address] 10/24/2013 13:22:09 10/27/2013 09:18:15 Lumbosacral spondylosis without myelopathy 90894882 Displaceme nt of lumbar intervertebral disc without myelopathy 99979167 Lumbosacra l radiculitis 96952588 93715 Nani Baker MD [facility] [address] [facility] [place] [address] 11/07/2013 10:27:07 11/08/2013 14:06:31 Lumbosacral spondylosis without myelopathy 48283992 Displaceme nt of lumbar intervertebral disc without myelopathy 42808736 Lumbosacra l radiculitis 68340187 65321 Nani Baker MD [facility] [address] [facility] [place] [address] 11/29/2013 10:00:54 12/03/2013 16:50:45 Lumbosacral spondylosis without myelopathy 23569487 Displaceme nt of lumbar intervertebral disc without myelopathy 69264086 Lumbosacra l radiculitis 79511607 07218 Nani Baker MD PAIN OFFICE [address] [facility] [place] [address] 12/26/2013 10:21:37 12/27/2013 15:19:55 Lumbosacral spondylosis without myelopathy 18616785 Displaceme nt of lumbar intervertebral disc without myelopathy 58745939 Lumbosacra l radiculitis 62688200 29331 Nani Baker MD PAIN OFFICE [address] [facility] [place] [address] 01/17/2014 13:07:43 01/18/2014 15:46:33 Lumbosacral spondylosis without myelopathy 98927632 Displaceme nt of lumbar intervertebral disc without myelopathy 34674449 Lumbosacra l radiculitis 70672704 71314 Nani Baker MD PAIN OFFICE [address] [facility] [place] [address] 01/19/2014 10:41:36 01/20/2014 11:12:44 Lumbosacral spondylosis without myelopathy 71736457 Displaceme nt of lumbar intervertebral disc without myelopathy 90216327 Lumbosacra l radiculitis 71393624 77110 Nani Baker MD PAIN OFFICE [address] [facility] [place] [address] 02/21/2014 10:49:23 02/21/2014 11:45:38 Lumbosacral spondylosis without myelopathy 66515735 Displaceme nt of lumbar intervertebral disc without myelopathy 15832141 Lumbosacra l radiculitis 65508495 27415 Nani Baker MD PAIN OFFICE [address] [facility] [place] [place] [address] 03/29/2014 10:32:34 03/29/2014 11:28:43 Lumbosacral spondylosis without myelopathy 48324075 Displaceme nt of lumbar intervertebral disc without myelopathy 23582292 Lumbosacra l radiculitis 89388555 79612 Nani Baker MD PAIN OFFICE [address] [place] [address] 04/06/2014 14:07:44 04/06/2014 15:48:45 Lumbosacral spondylosis without myelopathy 22886480 Displaceme nt of lumbar intervertebral disc without myelopathy 15440375 Lumbosacra l radiculitis 94867958 00564 Nani Baker MD PAIN OFFICE [address] [place] [address] 04/27/2014 13:56:39 04/29/2014 21:26:25 Lumbosacral spondylosis without myelopathy 31181089 Displaceme nt of lumbar intervertebral disc without myelopathy 12982186 Lumbosacra l radiculitis 99379864 00409 Nani Baker MD PAIN OFFICE [address] [place] [address] 05/17/2014 11:13:27 05/17/2014 15:18:53 Lumbosacral spondylosis without myelopathy 13323781 Displaceme nt of lumbar intervertebral disc without myelopathy 45043398 Lumbosacra l radiculitis 67944161 61235 Nani Baker MD PAIN OFFICE [address] [place] [address] 08/10/2014 15:17:32 08/16/2014 10:42:28 Lumbosacral spondylosis without myelopathy 31986952 Displaceme nt of lumbar intervertebral disc without myelopathy 87636579 Lumbosacra l radiculitis 84004209 77496 Nani Baker MD PAIN OFFICE [address] [place] [address] 09/28/2014 14:00:05 10/01/2014 10:50:12 Lumbosacral spondylosis without myelopathy 85937941 Displaceme nt of lumbar intervertebral disc without myelopathy 86358434 Lumbosacra l radiculitis 90738097 Enthesopat hy of hip region 41225178 Compressio n fracture of vertebral column 09953210 11355 Nani Baker MD [facility] PAIN OFFICE [address] [place] [address] 01/04/2016 10:22:33 01/12/2016 18:39:32 Lumbosacral spondylosis without myelopathy 41685343 M47.817 Displaceme nt of lumbar intervertebral disc without myelopathy 49233898 M51.26 Enthesopat hy of hip region 93800816 M76.9 84193 Nani Baker MD [facility] PAIN OFFICE [address] [place] [address] 12/04/2016 09:35:15 01/11/2017 18:16:46 Lumbosacral spondylosis without myelopathy 26491904 M47.817 Displaceme nt of lumbar intervertebral disc without myelopathy 40664832 M51.26 Enthesopat hy of hip region 28920548 M76.9 32895 Nani Baker MD [facility] PAIN OFFICE [address] [place] [address] 02/23/2017 14:52:43 02/25/2017 15:20:57 Displacement of lumbar intervertebral disc without myelopathy 60084865 M51.26 Lumbosacra l radiculitis 55794066 M54.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 31985777 M47.817 55818 Nani Baker MD [facility] PAIN OFFICE [address] [place] [address] 03/17/2017 13:04:51 03/19/2017 11:14:52 Displacement of lumbar intervertebral disc without myelopathy 14458145 M51.26 Lumbosacra l radiculitis 02204285 M54.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 36811358 M47.817 93862 Nani Baker MD [facility] PAIN OFFICE [address] [place] [address] 03/31/2017 09:22:04 04/01/2017 13:37:43 Lumbosacral radiculitis 49198813 M54.17 Displaceme nt of lumbar intervertebral disc without myelopathy 93889019 M51.26 Lumbosacra l spondylosis without myelopathy 44498633 M47.817 66411 Nani Baker MD PAIN OFFICE [address] [place] [address] 04/24/2017 08:50:47 04/24/2017 13:41:37 Lumbosacral radiculitis 34867446 M54.17 Displaceme nt of lumbar intervertebral disc without myelopathy 08214538 M51.26 Lumbosacra l spondylosis without myelopathy 77469544 M47.817 79704 Nani Baker MD PAIN OFFICE [address] [place] [address] 05/19/2017 14:06:27 05/21/2017 11:21:34 Lumbosacral radiculitis 77997924 M54.17 Displaceme nt of lumbar intervertebral disc without myelopathy 03620257 M51.26 Lumbosacra l spondylosis without myelopathy 39700814 M47.817 20397 Nani Baker MD PAIN OFFICE [address] [place] [address] 10/07/2017 11:31:45 10/07/2017 14:36:01 Displacement of lumbar intervertebral disc without myelopathy 21094674 M51.26 Lumbosacra l radiculitis 42666115 M54.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 70139733 M47.817 63208 Nani Baker MD PAIN OFFICE [address] [place] [address] 11/09/2017 15:30:47 11/13/2017 08:33:20 Postherpetic neuralgia 5530367 B02.29 Lumbosacra l radiculitis 78945830 M54.17 Displaceme nt of lumbar intervertebral disc without myelopathy 03199329 M51.26 Lumbosacra l spondylosis without myelopathy 89394331 M47.817 55282 Nani Baker MD PAIN OFFICE [address] [place] [address] 11/25/2017 10:19:02 11/26/2017 10:26:57 Displacement of lumbar intervertebral disc without myelopathy 62071064 M51.26 Lumbosacra l radiculitis 65871100 M54.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 59299869 M47.817 94622 Nani Baker MD PAIN OFFICE [address] [address] 01/26/2018 11:15:45 01/28/2018 09:21:50 Displacement of lumbar intervertebral disc without myelopathy 21161260 M51.26 Lumbosacra l radiculitis 30154058 M54.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 02644676 M47.817 13200 Nani Baker MD PAIN OFFICE [address] [place] [address] 03/22/2018 14:23:54 03/22/2018 16:13:18 Displacement of lumbar intervertebral disc without myelopathy 77934709 M51.26 Lumbosacra l radiculitis 94683349 M54.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 01649435 M47.817 06495 Nani Baker MD PAIN OFFICE [address] [place] [address] 04/07/2018 11:29:53 04/08/2018 10:07:21 Displacement of lumbar intervertebral disc without myelopathy 39774520 M51.26 Lumbosacra l radiculitis 57621779 M54.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 14089434 M47.817 86831 Nani Baker MD PAIN OFFICE [address] [place] [address] 04/20/2018 13:09:21 04/20/2018 15:17:00 Displacement of lumbar intervertebral disc without myelopathy 00738687 M51.26 Lumbosacra l radiculitis 83023716 M54.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 91185894 M47.817 48430 Nani Baker MD PAIN OFFICE [address] [place] [address] 05/10/2018 10:04:19 05/10/2018 11:17:05 Displacement of lumbar intervertebral disc without myelopathy 43735483 M51.26 Lumbosacra l radiculitis 88582020 M54.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 13767121 M47.817 36216 Nani Baker MD [facility] PAIN OFFICE [address] [place] [address] 05/19/2018 09:56:28 05/19/2018 15:41:12 Displacement of lumbar intervertebral disc without myelopathy 41768342 M51.26 Lumbosacra l radiculitis 89686208 M54.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 88047256 M47.817 86343 Nani Baker MD PAIN OFFICE [address] [place] [address] 05/26/2018 13:50:26 05/26/2018 15:01:39 Compression fracture of vertebral column 74011491 M48.50XA Lumbosacra l radiculitis 10167543 M54.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 31916302 M47.817 Displaceme nt of lumbar intervertebral disc without myelopathy 45438711 M51.26 20557 Nani Baker MD PAIN OFFICE [address] [place] [address] 06/30/2018 13:04:08 06/30/2018 15:53:01 Compression fracture of vertebral column 41909925 M48.50XA Lumbosacra l radiculitis 41111889 M54.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 69975558 M47.817 Displaceme nt of lumbar intervertebral disc without myelopathy 23913019 M51.26 11210 Nani Baker MD PAIN OFFICE [address] [place] [address] 02/18/2019 11:22:38 02/24/2019 16:59:49 Displacement of lumbar intervertebral disc without myelopathy 15791030 M51.26 Lumbosacra l radiculitis 69012243 M54.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 50544262 M47.817 32215 Nani Baekr MD PAIN OFFICE [address] [facility] [place] [address] 03/16/2019 09:37:32 03/18/2019 15:35:03 Displacement of lumbar intervertebral disc without myelopathy 06435495 M51.26 Lumbosacra l radiculitis 55017211 M54.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 36592775 M47.817 68158 Nani Baker MD PAIN OFFICE [address] [facility] [place] [address] 04/27/2019 13:01:33 04/29/2019 16:03:44 Displacement of lumbar intervertebral disc without myelopathy 85424359 M51.26 Lumbosacra l radiculitis 52694340 M54.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 52915785 M47.817 08148 Nani Baker MD PAIN OFFICE [address] [facility] [place] [place] [address] 06/29/2019 11:44:47 06/29/2019 14:05:58 Displacement of lumbar intervertebral disc without myelopathy 13625012 M51.26 Lumbosacra l radiculitis 76395747 M54.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 81392386 M47.817 28947 Nani Baker MD PAIN OFFICE [address] [facility] [place] [place] [address] 08/08/2019 10:52:11 08/08/2019 11:32:02 Displacement of lumbar intervertebral disc without myelopathy 44756590 M51.26 Lumbosacra l radiculitis 80587320 M54.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 52289091 M47.817 61319 Nani Baker MD PAIN OFFICE [address] [facility] [place] [address] 10/24/2019 11:08:07 10/24/2019 11:23:30 Displacement of lumbar intervertebral disc without myelopathy 75943251 M51.26 Lumbosacra l radiculitis 41032458 M54.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 65780984 M47.817 18015 Nani Baker MD PAIN OFFICE [address] [facility] [place] [address] 10/25/2019 13:58:37 10/27/2019 10:16:27 Displacement of lumbar intervertebral disc without myelopathy 59385382 M51.26 Lumbosacra l radiculitis 28980938 M54.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 16620993 M47.817 09133 Nani Baker MD PAIN OFFICE [address] [facility] [place] [place] [address] 11/24/2019 09:33:21 11/24/2019 09:59:39 Displacement of lumbar intervertebral disc without myelopathy 91775734 M51.26 Lumbosacra l radiculitis 25337675 M54.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 32510395 M47.817 58971 Nani Baker MD PAIN OFFICE [address] [facility] [place] [address] 02/08/2020 08:30:06 02/08/2020 09:36:12 Displacement of lumbar intervertebral disc without myelopathy 76233787 M51.26 Lumbosacra l radiculitis 45683960 M54.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 67465784 M47.817 88979 Nani Baker MD PAIN OFFICE [address] [facility] [place] [address] 03/13/2020 14:47:56 03/13/2020 16:08:29 Displacement of lumbar intervertebral disc without myelopathy 08421333 M51.26 Lumbosacra l radiculitis 00207757 M54.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 96793229 M47.817 54526 Nani Baker MD PAIN OFFICE [address] [facility] [place] [place] [address] 05/02/2020 09:37:41 05/02/2020 09:45:38 Displacement of lumbar intervertebral disc without myelopathy 99244696 M51.26 Lumbosacra l radiculitis 56443942 M54.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 85083863 M47.817 76535 Nani Baker MD PAIN OFFICE [address] [place] [address] 06/13/2020 09:22:04 06/13/2020 13:57:59 Displacement of lumbar intervertebral disc without myelopathy 83205025 M51.26 Lumbosacra l radiculitis 29217393 M54.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 94850597 M47.817 09708 Nani Baker MD PAIN OFFICE [address] [place] [address] 08/02/2020 14:05:18 08/02/2020 14:11:48 Displacement of lumbar intervertebral disc without myelopathy 98217682 M51.26 Lumbosacra l radiculitis 58702922 M54.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 72328461 M47.817 64555 Nani Baker MD PAIN OFFICE [address] [place] [address] 09/12/2020 10:50:25 09/12/2020 16:08:53 Displacement of lumbar intervertebral disc without myelopathy 82305479 M51.26 Lumbosacra l radiculitis 35119331 M54.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 53774000 M47.817 09860 Nani Baker MD PAIN OFFICE [address] [place] [address] 11/09/2020 11:12:28 11/14/2020 11:32:15 Displacement of lumbar intervertebral disc without myelopathy 04836732 M51.26 Lumbosacra l radiculitis 48924446 M54.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 29570149 M47.817 Health Concerns Section Related Observation LastModified by Organization Detai ls LastModified Time None Recorded Concern Status LastModified by Organization Details LastModified Time None Recorded Advance Directives Directive None Recorded Payers Insurance Date Sequence Insurance Name Policy Number Policy Richardson Covered Member ID Richardson Member ID Guarantor Name 06/13/2020 [employer] [id number] Tova Kellerdarnell 06/13/2020 1 [place] [employer] Tova Lopez [id number] Tovatia Kellerdarnell 06/13/2020 2 [place] [facility] Tova Cazares Krishnadarnell [id number] Tova Kellerdarnell 06/13/2020 1 [facility] PRIOR TO 2022 - DUAL ELIGIBLE (MEDICARE REPLACEMENT/AD VANTAGE - HMO) Tova Cazares John [id number] Tova John 06/13/2020 1 [place] [employer] Tova Lopez [id number] Tova John 06/13/2020 1 [place] [facility] Tova John [id number] Tova Kellerdarnell 08/02/2020 1 [employer] - DOS PRIOR TO 2022 - DUAL ELIGIBLE (MEDICARE REPLACEMENT/AD VANTAGE - HMO) Tova John [id number] Tova Kellerdarnell Notes Date Note Type Note Provider Name [...] bladder or bowel incontinence. Nani Baker MD [address] [place] [address] , [address], [place], [address], [place] [facility] 05/07/2020 11:11:41 06/13/2020 text/html She is here for a lumbar epidural steroid injection under fluoroscopic guidance. She has stopped Xarelto for the procedure. Nani Baker MD [address] [facility] , [address], [place], [address], [facility] - [facility] 06/13/2020 15:54:04 08/02/2020 text/html This [...] a cast . She is going to [place] for a trip to see her sons. Nani Baker MD [address] [facility] , [address], [place], [address], [facility] - [facility] 08/10/2020 09:32:56 09/12/2020 text/html She is here for a lumbar epidural steroid injection under fluoroscopic guidance. She has stopped Xarelto for the procedure.She is S/P Fall at home with right wrist injury Nani Baker MD [address] [facility] , [address], [place], [address], [facility] 09/12/2020 16:20:02 11/09/2020 text/html This is a follow up . She states she has recently fallen at home and has increasing low back pain. She had X-rays done at [facility] which shows multiple compression fractures L1, L2 and L4 with an increasing compression fracture at L4 which appears new. She states her primary care physician is arranging for her to have a vertebroplasty done. She states she is pretty bed ridden due to pain. She has no history of bladder or bowel incontinence. Nani Baker MD [address] [facility] , [address], [place], [address], [facility] 11/14/2020 15:46:05 OBGyn Episode No OBEpisode recorded.
--- OUTSIDE RECORDS SUMMARY | 2025-04-06 15:35 | XMS_ITS | Patient Health Record ---
[facility] Address [address] [place] [address] Care Team Providers Care Nitrocellulose Maker Name Role Phone Jung Randhawa Primary Care Provider UnaMireya Jara Unavailable [phone] Allergies Allergen (clinical drug ingredient) Drug/Non Drug [...] Duration) Notes Start Date End Date Status Multi For Her - as directed Orally Active Walking Boot/Pneumatic As directed Wear Daily; Duration: Until further notice 12/06/2019 Not-Taking traZODone HCl 150 MG 1 tablet at bedtime Orally Once a day; Duration: 30 day(s) Active Vitamin D3 Active clonazePAM 0.5 MG 1 tablet at bedtime Orally Once a day Active Atorvastatin Calcium 40 MG 1 tablet Orally Once a day; Duration: 30 day(s) Active Cetirizine HCl 10 MG 1 tablet Orally Onc e a day; Duration: 30 day(s) Not-Taking Xarelto 10 MG 1 tablet with food Orally Once a day; Duration: 30 day(s) Active dilTIAZem HCl 120 MG as directed Orally Active Immunizations Vaccine Route Administration Date Status Comme nts Influenza Unknown 03/11/2024 Administered Social History Tobacco Use: Social History Observation Description Date Details (start date - stop date) Never Smoker NA - NA Tobacco use other than smoking: Question Answer Notes Are you an other tobacco user? No Tobacco Control (Standard) Question Answer Notes Tobacco use: Nonsmoker Additional Findings: Tobacco non-user Current no nsmoker AUDIT-C (Standard) Question Answer Notes Did you have a drink containing alcohol in the p ast year? No Points 0 Interpretation Negative Problems Problem Type SNOMED Code ICD Code Onset Dates Problem Status W/U Status Risk Notes Problem Acquired hammer toe of right foot (4740466491186189) Other hammer toe(s) (acquired), right foot (M20.41) Active confirmed Problem Localized, primary osteoarthritis of the ankle and/or foot (330942700) Arthritis of joint of lesser toe, right (M19.071) Active confirmed Vital Signs Blood pressure diastolic 65 mm Hg 03/07/2025 Height 5 ft in 03/07/2025 Blood pressure systolic 128 mm Hg 03/07/2025 Weight 107 lbs 03/07/2025 BMI 20.89 kg/m2 03/07/2025 Encounters Encounter Location Date Provider Diagnosis [address] [address] 04/19/2024 Mireya Perica Fungal infection of nail B35.1 ; Pain of toe of right foot M79.674 and Pain of toe of left foot M79.[address] [address] 07/19/2024 Mireya Perica Fungal infection of nail B35.1 ; Other hammer toe(s) (acquired), right foot M20.41 ; Pain of toe of right foot M79.674 and Pain of toe of left foot M79.[address] [address] 10/11/2024 Mireya Perica Fungal infection of nail B35.1 ; Pain of toe of right foot M79.674 and Pain of toe of left foot M79.[address] [address] 03/07/2025 Mireya Perica Fungal infection of nail B35.1 ; Pain of toe of right foot M79.674 and Pain of toe of left foot M79.675 [facility] [address] [place] [address] 12/19/2024 Mireya Darby Assessments Encounter Date Diagnosis (ICD Code) Assessment Notes Treatment Notes Treatment Clinical Notes Section Notes 04/19/2024 Pain of toe of right foot (ICD-10 - M79.674) 04/19/2024 Fungal infection of nail (ICD-10 - B35.1) 07/19/2024 Other hammer toe(s) (acquired), right foot (ICD-10 - M20.41) 07/19/2024 Fungal infection of nail (ICD-10 - B35.1) 10/11/2024 Pain of toe of right foot (ICD-10 - M79.674) 10/11/2024 Fungal infection of nail (ICD-10 - B35.1) 03/07/2025 Fungal infection of nail (ICD-10 - B35.1) 03/07/2025 Pain of toe of right foot (ICD-10 - M79.674) 10/11/2024 Pain of toe of left foot (ICD-10 - M79.675) 07/19/2024 Pain of toe of right foot (ICD-10 - M79.674) 04/19/2024 Pain of toe of left foot (ICD-10 - M79.675) 07/19/2024 Pain of toe of left foot (ICD-10 - M79.675) 03/07/2025 Pain of toe of left foot (ICD-10 - M79.675) Plan Of Treatment Pending Test Test Name Order Date X ray : Foot, left 3V 11/29/2019 X ray : Foot, left 3V 12/06/2019 31893- Unna Boot 11/29/2019 Next Appt Details Provider Name:Mireya castillo, 06/20/2025 02:00:00 PM, [address] [place] [address], [address], Insurance Providers Payer Name Payer Address Payer Phone Subscriber Number Group Number Insured Name Patient Relationship to Insured Coverage Start Date Coverage End Date [facility] [employer] Claims [address] [place] [id number] Tova Lopez Self - patient is the insured Medical (General) History Medical History History ICD Code Anxiety Arthritis asthma Cancer Fibromyalgia Heart disease Hepatitis C COPD Osteoporosis Sciatica Warts Measles Surgical History Surgery Date(Month/Year) hysterectomy Hernia Repair X2 tubal ligation cancer surgery- nose and leg carpal tunnel surgery spinal stimulator put in and then remove d due to pain [place] Reason [place] [facility] [place]
--- OUTSIDE RECORDS SUMMARY | 2025-04-06 15:35 | XMS_ITS | Data Portability ---
Author Organization [employer] [facility] Address [address] [place] [address] Care Team Providers Care Senior Production Manager Name Role Phone HIM CCA OTHER KAREN [...] of any new or worsening serious symptoms [email or web address] Not available 08/03/2024 13:20:31 Plan of Treatment Reminders Order Date Submit Date Provider Last Modified By Organization Details Last Modified Time Details Appointments None recorded. Lab rapid SARS CoV 2 Ag, QL IA, respiratory specimen 2024 025 [facility], [address] [place] [address], [id number] 5 19:17:19 rapid flu (A+B) 2024 025 [facility], [address] [place] [address], [id number] 19:17:43 Referral None recorded. Procedures None recorded. Surgeries None recorded. Imaging None recorded. Medication Orders azithromyci n 250 mg tablet 2024 025 [id number], [address] [place] [address], [id number], 12:50:09 azithromyci n 250 mg tablet 2024 025 [email or web address] [address] [facility], [address] [place], [address], 5 12:50:08 prednisone 20 mg tablet 2024 025 [email or web address] 84 [facility], [address] [place], [address], 5 12:50:08 prednisone 20 mg tablet 2024 025 [facility], [address] [place], [address], 5 12:50:57 prednisone 20 mg tablet 2024 025 [email or web address] [facility], [address] [place] [address], [address], 5 18:44:48 prednisone 20 mg tablet 2024 025 [facility], [address] [place] [address], [address], 5 18:44:49 azithromyci n 500 mg tablet 2024 025 [email or web address] [facility], [address] [place] [address], [address], 5 18:44:48 azithromyci n 250 mg tablet 2024 025 [facility], [address] [place] [address], [address], 5 18:44:50 ketorolac 30 mg/mL injection solution 2023 024 [email or web address] [facility], [address] [place] [address], [address], 4 17:51:25 ketorolac 15 mg/mL injection solution 2023 024 [email or web address] [facility], [address] [place] [address], [address], 22:18:07 Patient TargetsNo targets recorded. Patient InstructionsNo instructions recorded. Reason for Referral None Reported. Results Created Date Observation Date Name Description Value Unit Range Abnormal Flag Note LastModifiedBy Organization Detail LastModifiedTime 07/26/1907/26/2024 rapid flu (A+B) Flu negati ve Not Available [facility] ed [address] [place] [address], [phone] 07/26/2024 18:42:19 07/26/1907/26/2024 rapid SARS CoV 2 Ag, QL IA, respi rator y speci men rapid SARS CoV 2 Ag, QL IA, respiratory specimen negati ve Not Available [facility] ed [address] [place] [address], [id number] 07/26/2024 18:42:18 Result Notes None recorded. Medical Equipment None Reported. Allergies Allergen ID Allergen Name Allergen Category Reaction Reaction Severity Criticality Documentation Date Start Date Code Code System Note Provider Name and Address Organization Details Recorded Time 13932 tramadol medicatio n Not available Not available Not available 07/26/2024 05461 RxNorm Not Available [facility] - [facility] 16:15:34 [...] Vitals Date Recorded Body height Heart rate Body weight Body temperature Respiratory rate Oxygen saturation Oxygen saturation in Arterial blood by Pulse oximetry Systolic And Diastolic Provider Name and Address Organization Details Last Updated DateTime 5 152.4 cm 101 /min 17176.3 44 g 98.4 [degF] 18 /min 97 % 97 % 125/84 mm[Hg] Not Available [employer] 5 18:40:45 Date Recorded Heart rate Respiratory rate Body temperature Oxygen saturation Oxygen saturation in Arterial blood by Pulse oximetry Systolic And Diastolic Provider Name and Address Organization Details Last Updated DateTime 5 81 /min 18 /min 97.9 [degF] 96 % 96 % 130/82 mm[Hg] Not Available [employer] [facility] 5 12:44:18 Date Recorded Respiratory rate Heart rate Body height Body weight Body temperature Oxygen saturation Oxygen saturation in Arterial blood by Pulse oximetry Systolic And Diastolic Provider Name and Address Organization Details Last Updated DateTime 4 18 /min 96 /min 152.4 cm 19216.1 2 g 98.1 [degF] 93 % 93 % 134/80 mm[Hg] Not Available [employer] 4 20:33:59 Date Recorded Body temperature Oxygen saturation Oxygen saturation in Arterial blood by Pulse oximetry Heart rate Respiratory rate Systolic And Diastolic Provider Name and Address Organization Details Last Updated DateTime 4 98 [degF] 96 % 96 % 122 /min 16 /min 110/60 mm[Hg] Not Available [employer] 4 18:46:11 Date Recorded Body temperature Oxygen saturation Oxygen saturation in Arterial blood by Pulse oximetry Respiratory rate Heart rate Systolic And Diastolic Provider Name and Address Organization Details Last Updated DateTime 4 98.5 [degF] 94 % 94 % 18 /min 77 /min 108/56 mm[Hg] Not Available [employer] 4 18:24:53 Social History None recorded. Functional Status None recorded. Mental Status None recorded. Family History Nothing Reported. Medical History No medical history recorded. Gynecological HistoryNo gynecological history recorded. Obstetrics History GPAL:G 0 P 0 0 0 0 Past Encounters Encounter ID Performer Location Encounter Start Date Encounter Closed Date Diagnosis/Indication Diagnosis SNOMED-CT Code Diagnosis ICD10 Code Diagnosis IMO Codes Diagnosis Note [id number] Tori Calzada MD [facility] [address] [place] [phone] 11/30/2023 12:30:07 11/30/2023 21:50:24 Chronic low back pain 216083203 M54.50 [id number] Edd Cat MD [facility] [address] [place] [phone] 12/11/2023 20:33:57 12/12/2023 20:49:45 Chronic low back pain 558164166 M54.50 Reports acute-on-c hronic low back pain in the setting of malfunctio ca spinal cord stimulator . No new symptomato logy. Requesting pain control. Plan for ketorolac x1 (given report of Gissell). Recommende d close follow-up with primary surgeon. [id number] Shawna Watts MD [facility] [address] [place] [phone] 12/13/2023 17:25:05 12/14/2023 14:46:05 Chronic low back pain 042395951 M54.50 Evaluation in the field was performed by my automotive service writer colleague, as noted above, I provided real-time [...] shortness of breath, cough, chest pain, fever. [id number] Morgan Curtis MD [facility] [address] [place] [phone] 01/12/2024 18:24:51 01/13/2024 12:27:40 Constipation [id number] K59.00 [id number] Mirza De Leon MD [facility] [address] [place] [phone] 07/26/2024 18:40:40 07/27/2024 10:40:18 Acute exacerbation of chronic obstructive pulmonary disease 924007230 J44.1 Symptoms c/w COPD exacerbati on; worsening SOB and sputum production . Negative flu/COVID. Will treat with Z-pack and Prednisone burst similar to prior episodes. Discussed red flag signs for which to seek higher level of care. [id number] Frank Vuong MD [facility] [address] [place] [phone] 08/03/2024 12:44:16 08/03/2024 15:59:11 Acute exacerbation of chronic obstructive pulmonary disease [id number] J44.1 Health Concerns Section Related Observation LastModified by Organization Detai ls LastModified Time None Recorded Concern Status LastModified by Organization Details LastModified Time None Recorded Advance Directives Directive None Recorded Payers Insurance Date Sequence Insurance Name Policy Number Policy Richardson Covered Member ID Richardson Member ID Guarantor Name 08/03/2024 1 [facility] - DOS ON OR AFTER 2022 - DUAL ELIGIBLE - HALFWAY OPTIONS AND ONE CARE (MEDICARE REPLACEMENT/ADV ANTAGE - HMO) Tova Lopez [id number] Tova Lopez Notes Date Note Type Note [...] .................... .................... .................... .................... .................... .................... . Electrical Laboratory Technician Note From Maribel Winslow: Sent to a [...] Back: unremarkable; Extremities: unremarkable; Skin: pink,warm, dry; [facility] consulted and orders Toradol 15mg as a one time dose. Toradol 15mg IM administered without incident. Pt states she will follow up with surgeon and PCP. Red flags discussed. Pt has no further questions. .................... .................... .................... .................... .................... .................... .................... . Disposition: Fulfilled Edd Cat MD [address] [place] [address],[address], [place], [phone], [facility] 12/11/2023 22:18:20 12/13/2023 text/html CRC Nurse Triage [...] .................... .................... .................... .................... .................... .................... . Electrical Laboratory Technician Note From Franca You: [facility] Electrical Laboratory Technician Dash You SC6 dispatched to a [facility] for a 78 yof C/O [...] SOB, abd pain, N/V/D, or urinary S/S. [facility] consulted; she was instructed [...] . Disposition: Fulfilled Shawna Watts MD [address] [facility],[address], [place], [address], [facility] 12/13/2023 20:22:42 01/12/2024 text/html CRC Nurse Triage Notes (Jeannie Snowden): Reason For Request: pain, pt experinecing numbmess in left hand, just had spinal device removed and has no appetite Chief Complaints: Dehydration PMH: COPD/Asthma, Heart Disease Allergies: Unknown Comments: Engine Emission Technician verified the member's name//address and phone number. Member is a 78 yr old female PMH > chronic back pain > [place] 5-6 yrs ago, sepsis, COPD , stopped [...] .................... .................... .................... .................... .................... .................... . Electrical Laboratory Technician Note From Maribel Winslow: Sent to a [...] .................... .................... .................... .................... . Disposition: Rene Morgan Curtis MD [address] [place] [address],[address], [place], [phone], [employer] Patient Home Monitoring 01/13/2024 07:44:23 07/26/2024 text/html ROS as noted in the HPI CRC Nurse Triage Notes (Maria Guadalupe Ayala - RN): Reason For Request: Pt just woke up and is feeling extremely ill, pt has no strength. Pt states she has cold symptoms that are not improving Chief Complaints: Weakness, Fatigue, Common cold symptoms, Cough PMH: COPD/Asthma, Coronary Artery Disease, Arrhythmias (e.g., Atrial Fibrillation), Hyperlipidemia, Myocardial Infarction PMH Reviewed at 07/26/2024: Allergies Reviewed at 07/26/2024: Comments: Patient calling in to place a [...] MRI. She would like to be evaluated. Electrical Laboratory Technician Organization Information for [facility] Legal Name: [employer]. Address: [address] [place] [address], Software Quality Assurance Specialist: Xavier Garcia MD CLIA No.: [id number] Electrical Laboratory Technician POC Test Results from [facility] Rapid COVID antigen (18:34:14) COVID: - Attachments uploaded as part of this test result can be found under Documents section. Rapid influenza antigen (18:34:15) Flu: - .................... .................... .................... .................... .................... .................... .................... . Electrical Laboratory Technician Note From Shital Devine: [facility] makes pt contact. She is standing in her kitchen wearing her pajamas and heating up a cup of coffee in the microwave. She is generally well-appearing and smells of fresh cigarette smoke. She makes eye contact and invites [facility] to sit down. She sounds congested [...] and down last night, but she slept [id number] today. She became concerned w/ the fatigue [...] and a Z-pietro when she gets sick. [facility] obtains vital signs and pt is assessed. Lung sounds reveal expiratory wheezes in the apices and clear sounds in the remaining lobes. Remaining physical exam is unremarkable. [facility] contacts [facility] and discusses the above. [facility] orders 40mg prednisone and 500mg azithromycin PO and calls in prescription for the pt. [facility] administers all medications and informs pt of red flags s/s. She thanks [facility] for coming. [facility] is clear. Report completed by ALEJO Devine [id number]. [facility] Lab Orders: rapid SARS CoV 2 Ag, QL IA, respiratory specimen: Performed rapid flu (A+B): Performed [facility] Medication Orders: prednisone 20 mg tablet: Administered azithromycin 500 mg tablet: Administered Comment: 2x 250mg tabs .................... .................... .................... .................... .................... .................... .................... . [facility] Consulted: Danie De Leon .................... .................... .................... .................... .................... .................... .................... . Disposition: Fulfilled Mirza De Leon MD [address] [facility],[address], [place], [address], [facility] 07/26/2024 20:20:55 08/03/2024 text/html ROS as noted in the [facility] CRC Nurse Triage Notes (Maria Guadalupe Ayala): Reason For Request: Pt reporting a cold>chest feels tight>COPD>started in her head then graduated to her chest>trouble breathingDenies: Increased work of breathing/labored with or without fever Unable to speak in full sentences without distress Discoloration of skin -cyanosis Needs to sleep sitting up, can t catch breath Shortness of breath in [...] .................... .................... .................... .................... .................... .................... . Electrical Laboratory Technician Note From Eduardo Rascon: Dispatched to the [...] with slight wheezing and right sided rhonchi. [facility] consulted. Pt given 40mg PO prednisone and 500mg PO Azithromycin. Scripts called into preferred pharmacy. Red flags discussed. ALL times are approx. [facility] Medication Orders: azithromycin 250 mg tablet: Administered prednisone 20 mg tablet: Administered .................... .................... .................... .................... .................... .................... .................... . [facility] Consulted: Frank Vuong .................... .................... .................... .................... .................... .................... .................... . Disposition: Fulfilled Frank Vuong MD [address] [facility],[address], [place], [address], [facility] [employer] 08/03/2024 13:20:37 OBGyn Episode No OBEpisode recorded.
== END 2025-04-06 13:16 | disposition home or self-care (01) ==
LOC: HO.HCS 12:44
PROVIDERS: PCP Nurse Practitioner Family; Visit Provider Nurse Practitioner Family
DX: I25.10 Atherosclerotic heart disease of native coronary artery without angina pectoris (principal); I48.0 Paroxysmal atrial fibrillation; I65.23 Occlusion and stenosis of bilateral carotid arteries
CPT/HCPCS: 99214; G2211

== ENCOUNTER → 2025-04-06 12:43 | Outpatient (BNVA) | payer OTHER, SELFPAY | PROVIDERS: PCP Nurse Practitioner Family; Visit Provider Nurse Practitioner Family | DX: I65.23 Occlusion and stenosis of bilateral carotid arteries (principal); I48.0 Paroxysmal atrial fibrillation; I25.10 Atherosclerotic heart disease of native coronary artery without angina pectoris; J44.9 Chronic obstructive pulmonary disease, unspecified; F17.210 Nicotine dependence, cigarettes, uncomplicated | CPT/HCPCS: 99212 ==

== ENCOUNTER 2025-04-27 10:24 | Outpatient (REF) | payer OTHER, SELFPAY ==
[2025-04-27 13:00] LABS: MANUAL DIFF FLAG NO
[2025-04-27 13:11] LABS: Hematocrit 38.2 % (37.0-47.0); Hemoglobin 12.3 g/dl (12.0-16.0); Imm Gran Abs Auto 0.11 X10*3/uL (0.00-0.03); Imm Gran Pct Auto 1.0 % (0.0-0.4); Lymphocytes Absolute Auto 2.5 X10*3/uL (1.2-4.9); Mean Corpuscular HGB Conc 32.2 g/dl (31.0-35.0); Mean Corpuscular Hemoglobin 30.8 pg (27.0-33.0); Mean Corpuscular Volume 95.7 fL (80.0-98.0); NRBC Abs Auto 0.000 X10*3/uL (0.0-0.012); NRBC Pct Auto 0.0 /100WBC (0.0-0.2); Platelet Count 321 X10*3/uL (160-400); Red Blood Count 3.99 X10*6/uL (4.20-5.50); White Blood Count 10.8 X10*3/uL (4.8-10.8)
[2025-04-27 13:38] LABS: Appearance Urine Clear; Glucose Urine UA Negative (Negative); PH 5.5 (5.0-9.0); Specific Gravity - Urine 1.020 (1.005-1.025); UMIC TRIGGER UACC YES
[2025-04-27 13:44] LABS: Alanine Aminotransferase 11 U/L (0-31); Albumin Level 4.3 g/dL (3.5-5.0); Alkaline Phosphatase 105 U/L (39-117); Anion Gap 11 (12-20); Aspartate Amino Transferase 36 U/L (5-31); Blood Urea Nitrogen 17 mg/dL (9-16); Calcium 9.4 mg/dL (8.4-10.2); Carbon Dioxide 27 mmol/L (22-29); Chloride 105 mmol/L (96-108); Cholesterol 113 mg/dL (<200); Estimated Glomerular Filt Rate > 60; HDL Cholesterol 49 mg/dL (>40); Potassium 3.8 mmol/L (3.3-5.1); Sodium 139 mmol/L (135-145); Total Protein 7.4 g/dL (6.5-8.0); Triglycerides 112 mg/dL (<150)
--- OUTSIDE RECORDS SUMMARY | 2025-04-27 15:24 | XMS_ITS | Data Portability ---
Author Organization [employer] [facility], [employer] [facility] Address [address] [place] [address] Care Team Providers Care Outpatient Psychiatrist Name Role Phone HIM CCA OTHER KAREN [...] of any new or worsening serious symptoms [email or web address] Not available 08/03/2024 13:20:31 04/16/2025 04/16/2025 service called for SOB found 80 stefania with hx COPD CAD Afib HL CAD c/o 1d increased WOB, productive cough green sputum denies fever, chills 99.4 108/67 104 19 93%RA coarse BS diffuse COVID neg flu neg #COPD Exacerbation uncomplicated at this time duoneb x1 with good effect po Pred 40mg x1 and follow on course azithro 500mg X1 and follow on course continue home nebs notify service if worsening or no impropvement otherwise return to ptimary team [email or web address] Not available 04/16/2025 18:02:30 Plan of Treatment Reminders Order Date Submit Date Provider Last Modified By Organization Details Last Modified Time Details Appointments None recorded. Lab rapid SARS CoV 2 Ag, QL IA, respiratory specimen 2024 025 [facility], [address] [place] [address], [id number] 19:38:04 rapid flu (A+B) 2024 025 [facility], [address] [place] [address], [phone] 5 19:37:37 rapid SARS CoV 2 Ag, QL IA, respiratory specimen 2024 025 [facility], [address] [place] [address], [phone] 5 19:17:19 rapid flu (A+B) 2024 025 [facility], [address] [place] [address], [address] 5 19:17:43 Referral None recorded. Procedures None recorded. Surgeries None recorded. Imaging None recorded. Medication Orders ipratropium 0.5 mg-albutero l 3 mg (2.5 mg base)/3 mL nebulizatio n soln 2024 025 [facility], [address] [place] [address], [address], 5 17:56:34 azithromyci n 250 mg tablet 2024 025 [facility] [address] [place] [address], [address], 5 17:56:35 azithromyci n 250 mg tablet 2024 025 [facility], [address] [place], [address], 5 17:56:33 prednisone 20 mg tablet 2024 025 [facility], [address] [place], [address], 5 05:01:04 prednisone 20 mg tablet 2024 025 [facility], [address] [place], [address], 5 05:01:04 azithromyci n 250 mg tablet 2024 025 [facility], [address] [place], [address], 5 12:50:09 azithromyci n 250 mg tablet 2024 025 [email or web address] [facility] [address] [place], [address], 5 12:50:08 prednisone 20 mg tablet 2024 025 [facility] [address] [place], [address], 5 05:01:04 prednisone 20 mg tablet 2024 025 [facility] [address] [place], [address], 5 05:01:04 prednisone 20 mg tablet 2024 025 [facility] [address] [place] [address], [address], 5 05:01:04 prednisone 20 mg tablet 2024 025 [facility], [address] [place] [address], [address], 5 05:01:04 azithromyci n 500 mg tablet 2024 025 [email or web address] [facility]acy #[facility]15, [address] [place] [address], [address], 5 18:44:48 azithromyci n 250 mg tablet 2024 025 [facility], [address] [place], [address], 5 18:44:50 ketorolac 30 mg/mL injection solution 2023 024 [email or web address] [facility] [address] [place] [address], [address], 4 17:51:25 Patient TargetsNo targets recorded. Patient InstructionsNo instructions recorded. Reason for Referral None Reported. Results Created Date Observation Date Name Description Value Unit Range Abnormal Flag Note LastModifiedBy Organization Detail LastModifiedTime 07/26/1907/26/2024 rapid flu (A+B) Flu negati ve Not Available [facility] ed [address] [place] [address], [phone] 07/26/2024 18:42:19 07/26/1907/26/2024 rapid SARS CoV 2 Ag, QL IA, respi rator y speci men rapid SARS CoV 2 Ag, QL IA, respiratory specimen negati ve Not Available [facility] ed [address] [place] [address], [phone] 07/26/2024 18:42:18 Result Notes None recorded. Problems Name Problem SNOMED Code Status Onset Date Resolution Date Notes Provider Name and Address Organization Details Recorded Time Postherpetic neuralgia [id number] Chidi Ronquillo MD [address] [place] [address],[address] [place] [address], [phone], [employer], [employer] 5 17:57:14 Compression fracture of vertebral column 48560006 Chidi Ronquillo MD [address] [place] [address],[address] [place] [address], [place], [address], Vee[employer]ED, [employer] 5 17:57:17 Displacement of lumbar intervertebral disc without myelopathy [id number] Chidi Ronquillo MD [address] [place] [address],[address] [place] [address], [address], Hyperoptic, GEOC[employer]ms 5 17:57:19 Enthesopathy of hip region 36035930 Chidi Ronquillo MD [address] [place] [address],[address] [place] [address], [place], [address], Hyperoptic, [employer]ms 5 17:57:21 Lumbosacral radiculitis [id number] Chidi Ronquillo MD [address] [place] [address],[address] [place] [address], [phone], Hyperoptic, [employer]ms 5 17:59:21 Problem Notes None recorded. Medical Equipment None Reported. Allergies Allergen ID Allergen Name Allergen Category Reaction Reaction Severity Criticality Documentation Date Start Date Code Code System Note Provider Name and Address Organization Details Recorded Time 58485 tramadol medicatio n Not available Not available Not available 07/26/2024 07692 RxNorm Not Available [facility] - production 16:15:34 80172 bupropion Not available Not available Not available Not available 04/16/2025 39713 RxNorm Not Available [facility] - External Data [employer] - prod 5 17:40:03 48043 gabapenti n medicatio n Not available Not available Not available 04/16/2025 70260 RxNorm Not Available [facility] - External Data Service - prod 5 17:40:03 45426 mirtazapi ne medicatio n Not available Not available Not available 04/16/2025 36862 RxNorm Not Available [facility] - External Data [employer] - prod 5 17:40:03 05841 naproxen medicatio n Not available Not available Not available 04/16/2025 7258 RxNorm Not Available [facility] - External Data [employer] - prod 5 17:40:03 57986 clonidine medicatio n Not available Not available Not available 04/16/2025 2599 RxNorm Not Available [facility] [employer] External Data [employer] - prod 5 17:40:03 65251 Cephalosp galo (substanc e) medicatio n Not available Not available Not available 04/16/2025 78881 7003 SNOMED Not Available [facility] [employer] External Data [employer] - prod 5 17:40:03 77190 Wellbutri n medicatio n Not available Not available Not available 04/16/2025 11384 RxNorm Not Available [facility] - External Data [employer] - prod 5 17:40:05 51361 Remeron medicatio n Not available Not available Not available 04/16/2025 47042 4 RxNorm Not Available [employer] - prod 5 17:40:05 91299 sulindac medicatio n arthralgi a (joint pain) Not available Not available 04/16/2025 89935 RxNorm Not Available [facility] - External Data Service - prod 17:40:05 77629 Lyrica medicatio n headache Not available Not available 04/16/2025 02900 1 RxNorm Not Available [facility] - External Data Service - prod 17:40:05 Medications Name Sig Start Date Stop Date Status Note LastModified by Organization Details LastModified Time ketorolac 15 mg/mL injection solution Inject 15 mg by intramusc ular route. 2023 active Not Available Not Available Not Avai lable atorvastati n 40 mg tablet TAKE 1 TABLET BY MOUTH EVERY DAY active Not Available Not Available No t Available clonidine HCl 0.1 mg tablet TAKE 1 TABLET BY MOUTH TWICE A DAY NEEDED FOR ANXIETY/P ANIC ATTACK active Not Available Not Available No t Available magnesium oxide 420 mg tablet TAKE 1 TABLET BY MOUTH AT BEDTIME active Not Available Not Available No t Available ipratropium 0.5 mg-albutero l 3 mg (2.5 mg base)/3 mL nebulizatio n soln INHALE 3 ML INHALED EVERY 4 TO 6 HOURS NEEDED FOR WHEEZING active Not Available Not Available No t Available clindamycin HCl 300 mg capsule PLEASE SEE ATTACHED FOR DETAILED DIRECTION S active Not Available Not Available No t Available albuterol sulfate 2.5 mg/3 mL (0.083 %) solution for nebulizatio n 2.5 MG (3 ML) INHALED 3 TIMES A DAY active Not Available Not Available No t Available cetirizine 10 mg tablet TAKE 5 MG (1/2 X 10 MG) ORALLY DAILY NEEDED FOR FOR ALLERGIES FOR 90 DAYS active Not Available Not Available No t Available azithromyci n 250 mg tablet TAKE 1 TABLET (250 MG) BY ORAL ROUTE ONCE DAILY FOR 4 DAYS 2024 active Not Available Not Available Not Avai lable ofloxacin 0.3 % eye drops PUT 2 DROPS IN TO THE AFFECTED EYE(S) 4 TIMES A DAY active Not Available Not Available No t Available prednisone 20 mg tablet Take 2 tablets by oral route for 4 days. 04/27 completed Not Available Not Available Not Available clonazepam 0.5 mg tablet TAKE 1 TABLET BY MOUTH THREE TIMES A DAY DIRECTED NEEDED FOR SEVERE ANXIETY active Not Available Not Available No t Available sulfamethox azole 800 mg-trimetho prim 160 mg tablet TAKE 1 TAB ORALLY 2 TIMES A DAY FOR 3 DAYS active Not Available Not Available No t Available prednisolon e acetate 1 % eye drops,suspe nsion INSTILL 1 DROP INTO BOTH EYES TWICE A DAY active Not Available Not Available No t Available methocarbam ol 750 mg tablet 750 MG ORALLY 4 TIMES A DAY active Not Available Not Available No t Available trazodone 150 mg tablet TAKE 1 TABLET BY MOUTH EVERY DAY AT BEDTIME NEEDED FOR INSOMNIA active Not Available Not Available No t Available neomycin-po lymyxin-dex ameth 3.5 mg/mL-10,00 0 unit/mL-0.1 % eye drops PUT 1 DROP INTO AFFECTED EYE(S) EVERY 12 HOURS FOR 7 DAYS active Not Available Not Available No t Available prednisone 50 mg tablet TAKE 1 TABLET BY MOUTH EVERY DAY FOR 5 DAYS active Not Available Not Available No t Available polymyxin B sulfate 10,000 unit-trimet hoprim 1 mg/mL eye drops PLEASE SEE ATTACHED FOR DETAILED DIRECTION S active Not Available Not Available No t Available ammonium lactate 12 % topical cream APPLY AM AND PM TO THE BODY THROUGHOU T active Not Available Not Available No t Available cefuroxime axetil 500 mg tablet TAKE 1 TABLET BY MOUTH EVERY 12 HOURS X5 DAYS active Not Available Not Available No t Available albuterol sulfate HFA 90 mcg/actuati on aerosol inhaler INHALE 2 PUFFS ORALLY EVERY 6 HOURS NEEDED FOR BRONCHOSP ASM FOR 30 DAYS active Not Available Not Available No t Available fluticasone propionate 110 mcg/actuati on HFA aerosol inhaler INHALE 1 PUFF TWICE A DAY active Not Available Not Available No t Available oxycodone 5 mg tablet TAKE 1 TABLET BY MOUTH EVERY 4 HOURS NEEDED FOR POST OPERATIVE PAIN X5 DAYS active Not Available Not Available No t Available enoxaparin 40 mg/0.4 mL subcutaneou s syringe PLEASE SEE ATTACHED FOR DETAILED DIRECTION S active Not Available Not Available No t Available azithromyci n 500 mg tablet TAKE 1 TABLET ORALLY [...] Available budesonide 1 mg/2 mL suspension for nebulizatio n INHALE 1 VIAL VIA NEBULZIER ONCE DAILY active Not Available Not Available No t Available oseltamivir 30 mg capsule TAKE 1 [...] No t Available Tiadylt ER 120 mg capsule,ext ended release TAKE 1 CAPSULE BY MOUTH DAILY active Not Available Not Available No t Available Vitals Date Recorded Body height Heart rate Body weight Body temperature Respiratory rate Oxygen saturation Systolic And Diastolic Provider Name and Address Organization Details Last Updated DateTime 5 152.4 cm 101 /min 66856.3 44 g 98.4 [degF] 18 /min 97 % 125/84 mm[Hg] Not Available [facility] 5 18:40:45 Date Recorded Heart rate Respiratory rate Body temperature Oxygen saturation Systolic And Diastolic Provider Name and Address Organization Details Last Updated DateTime 5 81 /min 18 /min 97.9 [degF] 96 % 130/82 mm[Hg] Not Available [employer] 5 12:44:18 Date Recorded Body temperature Oxygen saturation Heart rate Respiratory rate Systolic And Diastolic Provider Name and Address Organization Details Last Updated DateTime 4 98 [degF] 96 % 122 /min 16 /min 110/60 mm[Hg] Not Available [facility] 4 18:46:11 Date Recorded Body temperature Oxygen saturation Respiratory rate Heart rate Systolic And Diastolic Provider Name and Address Organization Details Last Updated DateTime 4 98.5 [degF] 94 % 18 /min 77 /min 108/56 mm[Hg] Not Available [facility] 4 18:24:53 Date Recorded Heart rate Body temperature Respiratory rate Body height Body weight Oxygen saturation Systolic And Diastolic Provider Name and Address Organization Details Last Updated DateTime 5 104 /min 99.4 [degF] 19 /min 152.4 cm 05869.7 52 g 93 % 107/67 mm[Hg] Not Available [facility] - production 17:39:41 Social History None recorded. Functional Status None recorded. Mental Status None recorded. Family History Nothing Reported. Medical History No medical history recorded. Gynecological HistoryNo gynecological history recorded. Obstetrics History GPAL:G 0 P 0 0 0 0 Past Encounters Encounter ID Performer Location Encounter Start Date Encounter Closed Date Diagnosis/Indication Diagnosis SNOMED-CT Code Diagnosis ICD10 Code Diagnosis IMO Codes Diagnosis Note [id number] Tori Calzada MD [facility] [address] [place] [phone] 11/30/2023 12:30:07 11/30/2023 21:50:24 Chronic low back pain 307262762 M54.50 [id number] Edd Cat MD [facility] [address] [place] [phone] 12/11/2023 20:33:57 12/12/2023 20:49:45 Chronic low back pain 200285644 M54.50 Reports acute-on-c hronic low back pain in the setting of malfunctio ca spinal cord stimulator . No new symptomato logy. Requesting pain control. Plan for ketorolac x1 (given report of Xarelto). Recommende d close follow-up with primary surgeon. [id number] Shawna Watts MD [facility] [address] [place] [phone] 12/13/2023 17:25:05 12/14/2023 14:46:05 Chronic low back pain 539561342 M54.50 Evaluation in the field was performed by my machine repairman colleague, as noted above, I provided real-time [...] shortness of breath, cough, chest pain, fever. [id number] Rose Ronquillo MD [facility] [address] [place] [phone] 01/12/2024 18:24:51 01/13/2024 12:27:40 Constipation 10907868 K59.00 [id number] Mirza De Leon MD Main [facility] [address] [place], [place] [phone] 07/26/2024 18:40:40 07/27/2024 10:40:18 Acute exacerbation of chronic obstructive pulmonary disease 504147956 J44.1 Symptoms c/w COPD exacerbati on; worsening SOB and sputum production . Negative flu/COVID. Will treat with Z-pack and Prednisone burst similar to prior episodes. Discussed red flag signs for which to seek higher level of care. [id number] Frank Vuong MD [facility] [address] [place] [phone] 08/03/2024 12:44:16 08/03/2024 15:59:11 Acute exacerbation of chronic obstructive pulmonary disease [id number] J44.1 [id number] Rose Ronquillo MD [facility] [address] [place] [phone] 04/16/2025 17:39:35 04/17/2025 11:57:42 Acute exacerbation of chronic obstructive pulmonary disease [id number] J44.1 104833 Health Concerns Section Related Observation LastModified by Organization Detai ls LastModified Time None Recorded Concern Status LastModified by Organization Details LastModified Time None Recorded Advance Directives Directive None Recorded Payers Insurance Date Sequence Insurance Name Policy Number Policy Richardson Covered Member ID Richardson Member ID Guarantor Name 04/16/2025 1 [facility] - DOS ON OR AFTER 2022 - DUAL ELIGIBLE - [employer] AND ONE [employer] (MEDICARE REPLACEMENT/ADV ANTAGE - HMO) Tova Lopez [id number] Tova Lopez Notes Date Note Type Note Provider Name and Address Organization Details Recorded Time 12/13/2023 text/html CRC Nurse Triage Notes (Maria [...] .................... .................... .................... .................... .................... .................... . Filler Shredder Helper Note From Franca You: Community Filler Shredder Helper Dash You SC6 dispatched to a [facility] for a 78 yof C/O back [...] SOB, abd pain, N/V/D, or urinary S/S. [facility] consulted; she was instructed to follow up [...] .................... . Disposition: Fulfilled Shawna Watts MD [address] [place] [address],[address], [place], [phone], [employer] 12/13/2023 20:22:42 01/12/2024 text/html CRC Nurse Triage Notes (Jeannie Snowden): Reason For Request: pain, pt experinecing numbmess in left hand, just had spinal device removed and has no appetite Chief Complaints: Dehydration PMH: COPD/Asthma, Heart Disease Allergies: Unknown Comments: Tour Counselor verified the member's name//address and phone number. Member is a 78 yr old female PMH > chronic back pain > [place] 5-6 yrs ago, sepsis, COPD , stopped [...] .................... .................... .................... .................... .................... .................... . Filler Shredder Helper Note From Maribel Winslow: Sent to a [...] .................... .................... .................... .................... . Disposition: Fulfilled Rose Ronquillo MD [address] [place] [address],[address], [place], [phone], [employer] 01/13/2024 07:44:23 07/26/2024 text/html ROS as noted in the [facility] CRC Nurse Triage Notes (Maria Guadalupe Ayala - RN): Reason For Request: Pt just woke up and is feeling extremely ill, pt has no strength. Pt states she has cold symptoms that are not improving Chief Complaints: Weakness, Fatigue, Common cold symptoms, Cough PMH: COPD/Asthma, Coronary Artery Disease, Arrhythmias (e.g., Atrial Fibrillation), Hyperlipidemia, Myocardial Infarction PMH Reviewed at 07/26/2024 - : Allergies Reviewed at 07/26/2024 - :19 Comments: Patient calling in to place a [...] MRI. She would like to be evaluated. Filler Shredder Helper Organization Information for Shital Devine Legal Name: [employer]. Address: [address] [place] [address], Testing Consultant: Xavier Garcia MD [place] No.: [id number] Filler Shredder Helper POC Test Results from [facility] Rapid COVID antigen (18:34:14) COVID: - Attachments uploaded as part of this test result can be found under Documents section. Rapid influenza antigen (18:34:15) Flu: - .................... .................... .................... .................... .................... .................... .................... . Filler Shredder Helper Note From Shital Devine: [facility] makes pt contact. She is standing in her kitchen wearing her pajamas and heating up a cup of coffee in the microwave. She is generally well-appearing and smells of fresh cigarette smoke. She makes eye contact and invites [facility] to sit down. She sounds congested [...] and down last night, but she slept [id number] today. She became concerned w/ the fatigue [...] and a Z-pietro when she gets sick. [facility] obtains vital signs and pt is assessed. Lung sounds reveal expiratory wheezes in the apices and clear sounds in the remaining lobes. Remaining physical exam is unremarkable. [facility] contacts [facility] and discusses the above. [facility] orders 40mg prednisone and 500mg azithromycin PO and calls in prescription for the pt. [facility] administers all medications and informs pt of red flags s/s. She thanks [facility] for coming. [facility] is clear. Report completed by ALEJO Devine [id number]. [facility] Lab Orders: rapid SARS CoV 2 Ag, QL IA, respiratory specimen: Performed rapid flu (A+B): Performed [facility] Medication Orders: prednisone 20 mg tablet: Administered azithromycin 500 mg tablet: Administered Comment: 2x 250mg tabs .................... .................... .................... .................... .................... .................... .................... . [facility] Consulted: Danie De Leon .................... .................... .................... .................... .................... .................... .................... . Disposition: Rene Mirza De Leon MD [address] [facility],[address], [place], [phone], [employer] 07/26/2024 20:20:55 08/03/2024 text/html ROS as noted in the HPI CRC Nurse Triage Notes (Maria Guadalupe Ayala): [...] Atrial Fibrillation), Hyperlipidemia, Myocardial InfarctionPMH Reviewed at 08/03/202418Allergies Reviewed at 08/03/2024 - :18Comments: Patient calling [...] .................... .................... .................... .................... .................... .................... . Filler Shredder Helper Note From Eduardo Rascon: Dispatched to the [...] with slight wheezing and right sided rhonchi. [facility] consulted. Pt given 40mg PO prednisone and 500mg PO Azithromycin. Scripts called into preferred pharmacy. Red flags discussed. ALL times are approx. [facility] Medication Orders: azithromycin 250 mg tablet: Administered prednisone 20 mg tablet: Administered .................... .................... .................... .................... .................... .................... .................... . [facility] Consulted: Frank Vuong .................... .................... .................... .................... .................... .................... .................... . Disposition: Fulfilled Frank Vuong MD [address] [facility],[address], [place], [phone], [employer] 08/03/2024 13:20:37 04/16/2025 text/html CRC Nurse Triage Notes (Librado Ulloa): Reason For Request: SOB/cold like symptoms Patient Reports: Needs to sleep sitting up, can t catch breath Denies: Increased work of breathing/labored with or without fever Unable to speak in full sentences without distress Discoloration of skin -cyanosis Shortness of breath in setting of confusion Chief Complaints: Breathing Problems, Common Cold PMH: COPD/Asthma, Coronary Artery Disease, Arrhythmias (e.g., Atrial Fibrillation), Hyperlipidemia, Myocardial Infarction PMH Reviewed at 04/16/2025 - 16:54 Allergies Reviewed at 04/16/2025 - 16:54 Comments: 80 y.o female complains of Breathing Problems, Common Cold Patient calling reporting started with cold like symptoms last night. Today reports difficulty breathing, tightness in the chest, and head congestion. Patient reports she wears oxygen as needed, but states I don't know how to get it going . Patient has not checked her oxygen level today. Patient states she did a nebulizer treatment but stopped it because it wasn't really helping . Patient states she has been coughing, reports cough is productive with green sputum. Patient reports taking cough medicine and Tylenol today. Patient speaking in full, complete sentences at time of call. Patient denies fever but does endorse chills. Patient states she has been sleeping most of the day, but has had to prop her pillows up more then normal. I provided information on the mobile health provider response time and advised the patient and/or caregiver to monitor reported signs and symptoms. I discussed the warning signs of when to seek emergency care -Mitchell Ulloa RN Filler Shredder Helper Organization Information for [facility] [employer] Legal Name: [facility] Address: [address] [place] [address], [place] [address], Testing Consultant: Ze ORDAZ No.: [id number] Filler Shredder Helper POC Test Results from [facility] Rapid COVID antigen (17:36:01) COVID: - Attachments uploaded as part of this test result can be found under Documents section. Rapid influenza antigen (17:36:04) Flu: - Attachments uploaded as part of this test result can be found under Documents section. .................... .................... .................... .................... .................... .................... .................... . Filler Shredder Helper Note From Mckenna Lee: Patient chief complained today of cold/ flu-like symptoms which have been occurring for approximately one day prior to [facility] to [place] scene today. Patient notes that she does have a history of COPD and has been having increased levels of weakness as well as a productive cough with green sputum and occasional shortness of breath. Patient knows that she has used her Duo nebulizer with some positive relief. Patient expresses no level of fevers and or chills. Patient today would appreciate a general assessment as well as treatment if possible. Patient currently expresses no signs and symptoms of chest pain, nvd, dizziness and or changes in vision. Patient allergies noted. Non-neural focal exam, AFebrile, all vitals within fully normal limits of the patient. PT able to ambulate at her baseline with no assistance from a walking device and our person. Patient lungs present as congested with slight ronchi in the bases. Benign abdominal exam, no new and or worsening lower extremity edema. Patient is CUELLO X4 with a GCS score of 15. Negative covid/ flu exam. [facility] rose ronquillo consulted Patient is given one Duo nebulizer at scene with slight positive effect. Patient is also given 40 mg of Prednisone oral as well as 500 mg of oral azithromycin continuing prescription sent to local pharmacy in patient choice. Patient is informed to contact her PCP at earliest convenience for follow-up as needed. Patient and family educated on red flag signs and symptoms and told to call emergency services if any present. [facility] Lab Orders: rapid SARS CoV 2 Ag, QL IA, respiratory specimen: Performed rapid flu (A+B): Performed [facility] Medication Orders: ipratropium 0.5 mg-albuterol 3 mg (2.5 mg base)/3 mL nebulization soln: Performed azithromycin 250 mg tablet: Performed prednisone 20 mg tablet: Performed .................... .................... .................... .................... .................... .................... .................... . [facility] Consulted: Rose Ronquillo .................... .................... .................... .................... .................... .................... .................... . Disposition: Fulfilled Rose Ronquillo MD [address] [facility],[address], [place], [address], KARI - [employer], [employer] 04/16/2025 18:42:20 OBGyn Episode No OBEpisode recorded.
--- OUTSIDE RECORDS SUMMARY | 2025-04-27 15:24 | XMS_ITS | Continuity of Care Document ---
Author Organization [facility] Address [address] [place] [address] Care Team Providers Care Barrel Header Name Role Phone HIM CCA OTHER KAREN JOHNSTON Primary Care Provider Assessment Encounter Date Assessment Date Assessment LastModified by Organization Details LastModified Time 04/16/2025 04/16/2025 service called for SOB found [...] Ag, QL IA, respiratory specimen 2024 025 [facility], [address] [place] [address], [phone] 19:38:04 rapid flu (A+B) 2024 025 [facility], [address] [place] [address], [phone] 19:37:37 Referral None recorded. Procedures None recorded. Surgeries None recorded. Imaging None recorded. Medication Orders ipratropium 0.5 mg-albutero l 3 mg (2.5 mg base)/3 mL nebulizatio n soln 2024 025 [id number], [address] [place], [address], 5 17:56:34 azithromyci n 250 mg tablet 2024 025 [id number], [address] [place], [address], 5 17:56:35 azithromyci n 250 mg tablet 2024 025 [id number] [address] [place], [address], 5 17:56:33 prednisone 20 mg tablet 2024 025 [id number] [address] [place], [address], 5 05:01:04 prednisone 20 mg tablet 2024 025 [id number] [address] [place], [address], 5 05:01:04 Patient TargetsNo targets recorded. Patient InstructionsNo instructions recorded. Reason for Referral None Reported. Results Created Date Observation Date Name Description Value Unit Range Abnormal Flag Note LastModifiedBy Organization Detail LastModifiedTime Result Notes None recorded. Problems Name Problem SNOMED Code Status Onset Date Resolution Date Notes Provider Name and Address Organization Details Recorded Time Postherpetic neuralgia [id number] Chidi Ronquillo MD [address] [place] [address],[address] [place], [address], [employer], [employer] 17:57:14 Compression fracture of vertebral column [id number] Chidi Ronquillo MD [address] [place] [address],[address], [place], [address], [employer], [employer] 17:57:17 Displacement of lumbar intervertebral disc without myelopathy [id number] Chidi Ronquillo MD [address] [place] [address],[address], [place], [address], [employer], [employer] 11/09/202 5 17:57:19 Enthesopathy of hip region 75383593 Chidi Ronquillo MD [address] [facility],[address], [place], [address], [employer] 5 17:57:21 Lumbosacral radiculitis [id number] Chidi Ronquillo MD [address] [facility],[address], [place], [address], [employer] 5 17:59:21 Problem Notes None recorded. Medical Equipment None Reported. Allergies Allergen ID Allergen Name Allergen Category Reaction Reaction Severity Criticality Documentation Date Start Date Code Code System Note Provider Name and Address Organization Details Recorded Time 33482 tramadol medicatio n Not available Not available Not available 07/26/2024 [address] Rx[address] [facility] 5 16:15:34 09218 bupropion Not available Not available Not available Not available 04/16/2025 14438 RxNorm Not Available [employer] - [employer] - prod 5 17:40:03 98717 gabapenti n medicatio n Not available Not available Not available 04/16/2025 69318 RxNorm Not Available [employer] - [employer] - prod 5 17:40:03 67052 mirtazapi ne medicatio n Not available Not available Not available 04/16/2025 86184 RxNorm Not Available [employer] [employer] External [employer] - prod 5 17:40:03 02892 naproxen medicatio n Not available Not available Not available 04/16/2025 7258 RxNorm Not Available [employer] - [employer] - prod 5 17:40:03 82584 clonidine medicatio n Not available Not available Not available 04/16/2025 2599 RxNorm Not Available [employer] - External Data [employer] - prod 5 17:40:03 48871 Cephalosp galo (substanc e) medicatio n Not available Not available Not available 04/16/2025 99566 7003 SNOMED Not Available [employer] - [employer] - prod 5 17:40:03 21665 Wellbutri n medicatio n Not available Not available Not available 04/16/2025 78495 RxNorm Not Available [employer] - prod 5 17:40:05 68872 Remeron medicatio n Not available Not available Not available 04/16/2025 51748 4 RxNorm Not Available [employer] - [employer] - prod 5 17:40:05 69702 sulindac medicatio n arthralgi a (joint pain) Not available Not available 04/16/2025 72021 RxNorm Not Available [employer] - prod 5 17:40:05 04065 Lyrica medicatio n headache Not available Not available 04/16/2025 29866 1 RxNorm Not Available [employer] [employer] - prod 17:40:05 Medications [...] Available No t Available Vitals Date Recorded Heart rate Body temperature Respiratory rate Body height Body weight Oxygen saturation Systolic And Diastolic Provider Name and Address Organization Details Last Updated DateTime 5 104 /min 99.4 [degF] 19 /min 152.4 cm 95364.7 52 g 93 % 107/67 mm[Hg] Not Available [facility] - production 5 17:39:41 Social History None recorded. Functional Status None recorded. Mental Status None recorded. Family History Nothing Reported. Medical History No medical history recorded. Gynecological HistoryNo gynecological history recorded. Obstetrics History GPAL:G 0 P 0 0 0 0 Past Encounters Encounter ID Performer Location Encounter Start Date Encounter Closed Date Diagnosis/Indication Diagnosis SNOMED-CT Code Diagnosis ICD10 Code Diagnosis IMO Codes Diagnosis Note [id number] Rose Ronquillo MD [facility] [address] [address] 04/16/2025 17:39:35 04/17/2025 11:57:42 Acute exacerbation of chronic obstructive pulmonary disease 323217752 J44.1 148835 Health Concerns Section Related Observation LastModified by Organization Detai ls LastModified Time None Recorded Concern Status LastModified by Organization Details LastModified Time None Recorded Payers Encounter Date Sequence Insurance Name Policy Number Policy Richardson Covered Member ID Richardson Member ID Guarantor Name 04/16/2025 1 [facility] - DOS ON OR AFTER 2022 - DUAL ELIGIBLE - SKILLED NURSING OPTIONS AND ONE CARE (MEDICARE REPLACEMENT/ADV ANTAGE - HMO) Tova John [id number] Tova John Notes Date Note Type Note Provider Name and Address Organization Details Recorded Time 04/16/2025 text/html CRC Nurse Triage Notes (Librado [...] Myocardial Infarction PMH Reviewed at 04/16/2025 - :54 Allergies Reviewed at 04/16/2025 - :54 Comments: 80 y.o female complains of Breathing [...] signs of when to seek emergency care -H. Ulloa, RN Homeopathic Doctor Organization Information for Mckenna Lee Business Legal Name: [facility] Transportation Address: [address] [place] [address], [place] [address], Shot Coat Tender: Ze ORDAZ No.: [id number] Homeopathic Doctor POC Test Results from Mckenna Lee Rapid COVID antigen (17:36:01) COVID: - Attachments uploaded as part of this test result can be found under Documents section. Rapid influenza antigen (17:36:04) Flu: - Attachments uploaded as part of this test result can be found under Documents section. .................... .................... .................... .................... .................... .................... .................... . Homeopathic Doctor Note From Mckenna Lee: Patient chief complained today of cold/ flu-like symptoms which have been occurring for approximately one day prior to [facility] to [place] scene today. Patient notes that she does [...] score of 15. Negative covid/ flu exam. [facility] rose ronquillo consulted Patient is given one [...] to call emergency services if any present. [facility] Lab Orders: rapid SARS CoV 2 Ag, QL IA, respiratory specimen: Performed rapid flu (A+B): Performed [facility] Medication Orders: ipratropium 0.5 mg-albuterol 3 mg (2.5 mg base)/3 mL nebulization soln: Performed azithromycin 250 mg tablet: Performed prednisone 20 mg tablet: Performed .................... .................... .................... .................... .................... .................... .................... . [facility] Consulted: Rose Ronquillo .................... .................... .................... .................... .................... .................... .................... . Disposition: Fulfilled Rose Ronquillo MD [address] [facility],[address], [place], [address], [employer] 04/16/2025 18:42:20 OBGyn Episode No OBEpisode recorded.
== END 2025-04-27 10:25 | disposition home or self-care (01) ==
LOC: HO.HMGCLDS 10:24
PROVIDERS: PCP Nurse Practitioner Family; Visit Provider Nurse Practitioner Family
DX: Z00.01 Encounter for general adult medical examination with abnormal findings (principal); Z13.29 Encounter for screening for other suspected endocrine disorder; Z13.6 Encounter for screening for cardiovascular disorders; E55.9 Vitamin D deficiency, unspecified
CPT/HCPCS: 36415; 80053; 80061; 81001; 82306; 84443; 85025

== ENCOUNTER 2025-04-28 11:41 | Outpatient (AMB) | payer OTHER, SELFPAY ==
--- OUTSIDE RECORDS SUMMARY | 2024-02-16 10:30 | XMS_ITS ---
Author Organization [facility] Address [address] [place] [address] Care Team Providers Care Car Mover Name Role Phone Jung Randhawa Primary Care Provider Unav ailable Mireya Darby [phone] REASON FOR VISIT Seen Sooner Encounters Encounter Location Date Provider Diagnosis [facility] [address] [place] [address] 02/16/2024 Mireya Darby Plan Of Treatment Next Appt Details Provider Name:Mireya castillo, 06/20/2025 02:00:00 PM, [address] [place], [address], Progress Notes * Tova LOPEZDOB:1945 (80 yo F)Acc No.[id number]:02/16/2024 Progress Note Patient: Daija MARQUESith Provider: Rocio Darby DPM :1945 A ge:79 Y S ex:Female Date:02/16/2024 Address:[address] [id number] Pcp:MONIQUE Yeung Subjective: * Chief Complaints: * [...] 02/16/2024 Generated for Jacinto delatorre/Love/Tez on: 1 06/28/2024 12:32 PM EST
--- OUTSIDE RECORDS SUMMARY | 2024-12-20 10:30 | XMS_ITS ---
Author Organization [facility] Address [address] [place] [address] Care Team Providers Care Transfer And Line Up Worker Name Role Phone Jung Randhawa Primary Care Provider Unav Mireya Khan Unavailable [phone] Allergies Allergen (clinical drug ingredient) Drug/Non Drug [...] Active Encounters Encounter Location Date Provider Diagnosis [facility] [address] [place] [address] 12/20/2024 Mireya Darby Plan Of Treatment Next Appt Details Provider Name:Mireya Palacios Jase anna, 06/20/2025 02:00:00 PM, [address] [place] [address], [phone], Progress Notes * Tova LOPEZDOB:1945 (80 yo F)Acc No.[id number]:12/20/2024 Progress Note Patient: Tova MARQUES Provider: Rocio Darby DPM :1945 A ge:79 Y S ex:Female Date:12/20/2024 Address: [address], [place] , [facility] Pcp:Jung Schaefer NP-BC Subjective: * Chief Complaints: [...] 12/20/2024 Generated for Jacinto delatorre/Love/Tez on: 1 06/28/2024 12:31 PM EST
[2025-04-28 11:43] VITALS: BP 98/54; PULSE 105; TEMP 36.8; O2SAT 94; BMI 20.7
--- NOTE | 2025-04-28 11:43 | MHC.OFFWIV ---
Intake Vital Signs 04/28/25 11:43 Height 5 ft Weight 106 lb BMI 20.7 BP 98/54 L Blood Pressure Location Lt brachial Position Sitting Pulse 105 H Pulse Source Pulse Oximeter Temp 98.2 F Temp Source Oral Pulse Oximetry (%) 94 Oxygen Delivery Method Room Air Intake Visit Reasons: EP Congestion Intake Note: pt presents with chest congestion, yellow mucus productive coughing, sinus congestion, body fatigue x2 wks. pt states nurse from insurance co. visited her at home early last week rx'd prednisione and zpak. h/o COPD, pneumonia Patient Tobacco Use Status: Current everyday Tobacco user Allergies Cephalosporins (CEPHALOSPORINS) Allergy (Unknown, Verified 04/28/25 11:56) UNKNOWN gabapentin (GABAPENTIN) Allergy (Unknown, Verified 04/28/25 11:56) UNKNOWN mirtazapine (From REMERON) Allergy (Unknown, Verified 04/28/25 11:56) UNKNOWN naproxen Allergy (Unknown, Verified 04/28/25 11:56) UNKNOWN tramadol Allergy (Unknown, Verified 04/28/25 11:56) UNKNOWN bupropion (From WELLBUTRIN) Adverse Reaction (Unknown, Verified 04/28/25 11:56) Shaky Do you need a note to return to daycare/school/sports/work: No HPI EP Congestion HPI Details This is a 80-year-old female patient who presents to the walk-in clinic today, with her son present, for report of a greater than 2 week history of chest congestion, productive cough with yellow sputum, sinus pressure, fatigue. She has been using saline spray and nebulizer at home with minimal relief. Earlier last week, she had a home visit from a visiting nurse, who reportedly started her on a 4 day course of prednisone and a Z-Nigel. Viral testing for Cov/Flu were negative. Patient states she has not improved since then. History of COPD. Patient has been checking her SaO2 at home, and reports it is stable around her norm, 92-93% on room air. She states that she is fearful, because she had a similar illness a few years ago, and ended up with pneumonia and sepsis in the hospital. She denies any fevers/chills. [facility] Medical History Generalized headaches Nocturnal hypoxemia Basal cell carcinoma History of COVID-19 (~06/2021) Personal history of nicotine dependence Osteopenia (~2009) History of non-ST elevation myocardial infarction (NSTEMI) (~04/2016) COPD (chronic obstructive pulmonary disease) Depression with anxiety Brain aneurysm Bilateral carotid artery stenosis PAF (paroxysmal atrial fibrillation) (~04/2016) Atherosclerotic cardiovascular disease Surgical History History of inguinal hernia repair, bilateral (~2018) History of skin surgery History of arthroscopic surgery of shoulder (~2009) History of carpal tunnel release History of bladder surgery History of thumb surgery History of tubal ligation History of total hysterectomy Family History Father No problems noted. Mother No problems noted. Brother Stroke Social History Household Members: None Housing: Other Housing Other:: mobile home Are you a primary director of healthcare systems to a significant other at home: No Do you presently have visiting nurse or other home services: Yes ([facility] q6 months) Comment: MEDICATED Patient Tobacco Use Status: Current everyday Tobacco user Tobacco use type: Cigarette Cigarette Packs Per Day: 0.5 Cigarettes Per Day: 7 Years Smoked: 68 e-Cigarette/Vaping Use: Former Use Substance Use Type: Marijuana Advance Directives Date on File: 08/03/23 service: No Current occupational status: retired and disabled Cognitive needs: No Hearing needs: No Vision needs: No Review of Systems Const All systems reviewed & are unremarkable except as noted in HPI and below Physical Exam Vital Signs: Last Vital Signs Temp 98.2 F 04/28/25 11:43 Pulse 105 H 04/28/25 11:43 BP 98/54 L 04/28/25 11:43 Pulse Ox 94 04/28/25 11:43 Oxygen Delivery Method Room Air 04/28/25 11:43 BMI result Body Mass Index 20.7 Const General: cooperative and no acute distress HEENT Head: Yes normal to inspection Ears: hearing grossly normal bilaterally General nose exam: Normal external nose present Face and sinus: Yes normal facial exam Throat: Yes posterior oropharynx normal Neck Neck: Yes no lymphadenopathy Resp Effort & Inspection: normal respiratory effort and Actively coughing Quality: productive Auscultation: clear to auscultation bilaterally and diminished lung sounds bilateral in the lower lung [place] Cardio Rate: regular rate Rhythm: regular rhythm Skin General skin exam: no rashes or lesions noted Extrem General: Yes capillary refill normal and Yes no clubbing, cyanosis or edema Psych Appearance: grossly normal Mental Status: mental status grossly normal Speech and movement: Normal speech and movement present Assessment & Plan Assessment & Plan (1) Chest congestion: Code(s): R09.89 - Other specified symptoms and signs involving the circulatory and respiratory systems Plan: Patient has acute URI/COPD exacerbation. History of hospitalization for pneumonia with similar previous illness. Has failed treatment with z-pack and short course of prednisone, as well as at home saline and nebulizer treatments. Will obtain CXR and start patient on Benzonatate and Augmentin - patient states she can tolerate amox. Will also send refill for neb solution. We reviewed indications, use, possible s/e of medications. She will be informed of XR results once available. If she does not improve with treatment or if she develops worsening symptoms, shortness of breath, or fever, she should go to the ED for evaluation. Patient and son present both verblize understanding and agree to plan. Orders: Orders XR chest 2V Today R09.89 - Other specified symptoms and signs involving the circulatory and respiratory systems Medications: New amoxicillin-pot clavulanate 875-125 mg 1 tab PO BID 14 tabs 0RF 7 days R09.89 - Other specified symptoms and signs involving the circulatory and respiratory systems benzonatate 100 mg PO BID PRN 14 caps 0RF cough 7 days R05.9 - Cough, unspecified Refilled ipratropium-albuterol 0.5 mg-3 mg(2.5 mg base)/3 mL 3 mL inhalation Q4-6H PRN 90 mL 0RF wheezing J44.1 - Chronic obstructive pulmonary disease with (acute) exacerbation Coding Level of Care Code Est Pt Level 4 (71672) Diagnoses Chest congestion R09.89
--- OUTSIDE RECORDS SUMMARY | 2025-04-28 12:32 | XMS_ITS | Encounter Summary ---
Author Organization [facility] Address [address] [place] [address] Encounters * CPT with Medical instED at [facility] on 2025-04-16 { reasonForRequest : SOB/cold like symptoms , patientReports : Needs to sleep sitting up, can t catch breath , denies :[ Increased work of breathing/labored with or without fever , Unable to speak in full sentences without distre ss , Discoloration of skin -cyanosis , Shortness of breath in setting of confusi on ], chiefComplaints : Breathing Problems, Common Cold , pmh :&q uot;COPD/Asthma, Coronary Artery Disease, Arrhythmias (e.g., Atrial Fibrillation), Hyperlipidemia, Myocardial Infarction , allergies : Tramadol , otherAllergies :nul mora, painAssessment : , visitOutcome : , additionalComments : 80 y.o female complains of Breathing Problems, Common Cold\nPatient calling reporting started with cold like symptoms last night. Today reports difficulty breathing, tightness in thechest, and head congestion. Patient reports she wears oxygen as needed, but states \ I don't know how to get it going\ . Patient has not checked her oxygen level today. Patient states she did a nebulizer treatment but stopped it because \ it wasn't really helping\ . Patient states she has been coughing, [...] to seek emergency care -Mitchell Ulloa RN } Patient chief complained today of cold/ flu-like symptoms which have been occurring for approximately one day prior to mih to [place] scene today. Patient notes that she does have a history of COPD and has been having increased levels of weakness as well as a productive cough with green sputum and occasional shortness of breath. Patient knows that she has used her Duo nebulizer with some positive relief. Patient expresses no level of fevers and or chills. Patient today would appreciate a generalassessment as well as treatment if possible. Patient [...] score of 15. Negative covid/ flu exam. [facility] rose ronquillo consulted Patient is given one [...] to call emergency services if any present. IV_(FLUIDS_AND/OR_MEDICATION), MEDICATION_IM, ORAL_MEDICATION, POC_BLOODWORK, POC_FLU_STREP, COVID_TEST Written by Medical Fantasma on 2025-04-16
--- OUTSIDE RECORDS SUMMARY | 2025-04-28 12:32 | XMS_ITS | Patient Health Record ---
Author Organization [facility] Address [address] [place] [address] Care Team Providers Care Rest Room Matron Name Role Phone Jung Randhawa Primary Care Provider UnaMireya Jara Unavailable [phone] Allergies Allergen (clinical drug ingredient) Drug/Non Drug [...] Problem Acquired hammer toe of right foot (7001944908272326) Other hammer toe(s) (acquired), right foot (M20.41) Active confirmed Problem Localized, primary osteoarthritis of the ankle and/or foot (202792555) Arthritis of joint of lesser toe, right (M19.071) Active confirmed Vital Signs Blood pressure diastolic 65 mm Hg 03/07/2025 Height 5 ft in 03/07/2025 Blood pressure systolic 128 mm Hg 03/07/2025 Weight 107 lbs 03/07/2025 BMI 20.89 kg/m2 03/07/2025 Encounters Encounter Location Date Provider Diagnosis [address] [address] 07/19/2024 Mireya Darby Fungal infection of nail B35.1 ; Other hammer toe(s) (acquired), right foot M20.41 ; Pain of toe of right foot M79.674 and Pain of toe of left foot M79.[address] [address] 10/11/2024 Mireya Perica Fungal infection of nail B35.1 ; Pain of toe of right foot M79.674 and Pain of toe of left foot M79.[address] [address] 03/07/2025 Mireya Perica Fungal infection of nail B35.1 ; Pain of toe of right foot M79.674 and Pain of toe of left foot M79.[address] [address] 12/19/2024 Mireya Darby Assessments Encounter Date Diagnosis (ICD Code) Assessment Notes Treatment Notes Treatment Clinical Notes Section Notes 07/19/2024 Other hammer toe(s) (acquired), right foot [...] toe of right foot (ICD-10 - M79.674) 07/19/2024 Pain of toe of left foot (ICD-10 - M79.675) 03/07/2025 Pain of toe of left foot (ICD-10 - M79.675) Plan Of Treatment Pending Test Test Name Order Date X ray : Foot, left 3V 11/29/2019 X ray : Foot, left 3V 12/06/2019 72170- Unna Boot 11/29/2019 Next Appt Details Provider Name:Mireya castillo, 06/20/2025 02:00:00 PM, [address] [place], [address], Insurance Providers Payer Name Payer Address Payer Phone Subscriber Number Group Number Insured Name Patient Relationship to Insured Coverage Start Date Coverage End Date [facility] [place] [employer] Claims [address] [facility] [place] [id number] Tova Lopez Self - patient is the insured Medical (General) History Medical History History ICD Code Anxiety Arthritis asthma Cancer Fibromyalgia Heart disease Hepatitis C COPD Osteoporosis Sciatica Warts Measles Surgical History Surgery Date(Month/Year) hysterectomy Hernia Repair X2 tubal ligation cancer surgery- nose and leg carpal tunnel surgery spinal stimulator put in and then remove d due to pain Hospitalization History Reason Date(Month/Year) [facility] influenza 08/10/2023
--- OUTSIDE RECORDS SUMMARY | 2025-04-28 12:32 | XMS_ITS | Data Portability ---
Author Organization [facility] Pain [facility] ent, PAIN OFFICE Address [address] [place] [address] Care Team Providers Care Flyer Builder Name Role Phone RICKY WATERS Primary Care Provider ALFONZO STEVENSON Printing Specialist Assessment Encounter Date Assessment Date Assessment LastModified [...] booked after insurance approval. She needs a oil transport driver on the day of the procedure. She is on Xarelto and needs to stop the medication three days prior to the injection per anticoagulation guidelines. Her director craft center states she can stop the medication for [...] booked after insurance approval. She needs a oil transport driver on the day of the procedure. She is on Xarelto and needs to stop the medication three days prior to the injection per anticoagulation guidelines. Her director craft center states she can stop the medication for [...] By Organization Details Last Modified Time 05/02/2020 [id number] She was advised to continue with activities [...] care. [email or web address] Not available 05/02/2020 09:45:02 06/13/2020 [id number] She was advised to continue with activities as tolerated and benefits of smoking cessation were reviewed with her. [email or web address] Not available 06/13/2020 10:02:50 08/02/2020 [id number] She was advised to continue with activities [...] care. [email or web address] Not available 08/02/2020 14:07:27 09/12/2020 [id number] She was advised to continue with activities as tolerated and benefits of smoking cessation were reviewed with her. [email or web address] Not available 09/12/2020 16:05:23 11/09/2020 [id number] She was advised to continue with activities [...] spine No observ ation record ed. eron [facility] [address] [place], [address], 11/14/2020 11:33:18 Result Notes None recorded. Problems Name Problem SNOMED Code Status Onset Date Resolution Date Notes Provider Name and Address Organization Details Recorded Time Lumbosacral spondylosis without myelopathy [id number] Chidi mas MD [address] [facility] , [address], [place], [address], [place] [facility] 6 18:39:02 Displacement of lumbar intervertebral disc without myelopathy [id number] Chidi mas MD [address] , [address], [place], [address], [place] [facility] 6 18:39:03 Enthesopathy of hip region 15877550 Chidi mas MD [address] , [address], [place], [address], [place] [facility] 6 18:39:03 Compression fracture of vertebral column 75680415 Chidi mas MD [address] , [address], [place], [address], [place] [facility] 6 18:29:06 Postherpetic neuralgia 0854833 Active Nani mas MD [address] , [address], [place], [address], [place] [facility] 8 16:02:07 Lumbosacral radiculitis 87683284 Active Nani mas MD [address] [facility] , [address], [place], [address], [place] [facility] 6 18:29:06 Problem Notes None recorded. Procedures Surgical History Date Name Laterality Status Provider Name and Address Organization Details Recorded Time 09/13/19 21 Lumbar Epidural steroid injection under fluoroscopic guidance completed Nani Baker MD [address] , [address], [place], [address], [place] [facility] 09/12/2020 16:06:14 06/13/19 21 Lumbar Epidural steroid injection under fluoroscopic guidance completed Nani Baker MD [address] , [address], [place], [address], [place] [facility] 06/13/2020 10:03:35 03/13/20 20 Lumbar Epidural steroid injection under fluoroscopic guidance completed Nani Baker MD [address] [facility] , [address], [place], [address], [place] [facility] 03/13/2020 15:36:36 10/25/19 20 Lumbar Epidural steroid injection under fluoroscopic guidance completed Nani Baker MD [address] , [address], [place], [address], [place] [facility] 10/27/2019 09:47:43 06/29/19 20 Lumbar Epidural steroid injection under fluoroscopic guidance completed Nani Baker MD [address] [facility] , [address], [place], [address], [place] [facility] 06/29/2019 13:58:52 03/16/20 19 Lumbar Epidural steroid injection under fluoroscopic guidance completed Nani Baker MD [address] , [address], [place], [address], [place] [facility] 03/18/2019 15:32:17 05/19/20 18 Lumbar Epidural steroid injection under fluoroscopic guidance completed Nani Baker MD [address] , [address], [place], [address], [place] [facility] 05/19/2018 15:37:32 04/20/20 18 Greater Trochanteric Bursa Steroid Injection completed Nani Baker MD [address] , [address], [place], [address], [place] [facility] 04/20/2018 14:17:28 04/07/20 18 Greater Trochanteric Bursa Steroid Injection completed Nani Baker MD [address] , [address], [place], [address], [place] [facility] 04/07/2018 13:33:14 01/27/20 18 Greater Trochanteric Bursa Steroid Injection completed Nani Baker MD [address] , [address], [place], [address], [place] [facility] 01/28/2018 08:59:37 11/26/19 18 Fluoroscopic Guided Lumbar Facet Steroid Injections of levels completed Nani Baker MD [address] , [address], [place], [address], [place] [facility] 11/26/2017 10:21:29 10/08/19 18 Lumbar Epidural steroid injection under fluoroscopic guidance completed Nani Baker MD [address] , [address], [place], [address], [place] [facility] 10/07/2017 13:42:01 05/19/20 17 Greater Trochanteric Bursa Steroid Injection completed Nani Baker MD [address] , [address], [place], [address], [place] [facility] 05/21/2017 11:06:00 03/17/20 17 Lumbar Epidural steroid injection under fluoroscopic guidance completed Nani Baker MD [address] , [address], [place], [address], [place] [facility] 03/17/2017 13:42:48 04/06/20 14 Lumbar Epidural steroid injection under fluoroscopic guidance completed Nani Baker MD [address] , [address], [place], [address], [place] [facility] 04/06/2014 15:46:14 01/20/20 14 Radiofrequency of Lumbar/Sacral medial branches supplying the facets under fluoroscopic guidance completed Nani Baker MD [address] , [address], [place], [address], [place] [facility] 01/20/2014 11:09:57 12/27/19 14 Radiofrequency of Lumbar/Sacral medial branches supplying the facets under fluoroscopic guidance completed Nani Baker MD [address] , [address], [place], [address], [place] [facility] 12/28/2013 11:18:21 11/08/19 14 Fluoroscopic Guided Lumbar Facet Steroid Injections of levels completed Nani Baker MD [address] , [address], [place], [address], [place] [facility] 11/08/2013 15:17:09 10/25/19 14 Fluoroscopic Guided Lumbar Facet Steroid Injections of levels completed Nani Baker MD [address] , [address], [place], [address], [place] [facility] 10/27/2013 09:17:13 08/01/19 14 Lumbar Epidural steroid injection under fluoroscopic guidance completed Nani Baker MD [address] , [address], [place], [address], [place] [facility] 08/01/2013 14:24:11 04/05/20 13 Fluoroscopic Guided Lumbar Facet Steroid Injections of levels completed Nani Baker MD [address] , [address], [place], [address], [place] [facility] 04/06/2013 09:16:32 03/23/20 13 Fluoroscopic Guided Lumbar Facet Steroid Injections of levels completed Nani Baker MD [address] , [address], [place], [address], [place] [facility] 03/25/2013 11:35:45 01/25/20 13 Lumbar Epidural steroid injection under fluoroscopic guidance completed Nani Baker MD [address] , [address], [place], [address], [place] [facility] 01/24/2013 16:24:03 10/19/19 13 Lumbar Epidural steroid injection under fluoroscopic guidance completed Nani Baker MD [address] , [address], [place], [address], [place] [facility] 10/19/2012 09:47:49 Other completed Nani Baker MD [address] , [address], [place], [address], [place] [facility] 11/08/2013 15:15:18 [...] Name and Address Organization Details Recorded Time 69075 naproxen medicatio n Not available Not available Not available 02/23/2017 7258 [facility]Norm Armida Darbyzier linda, [place] [facility] 7 15:04:34 62572 clonidine medicatio n Not available Not available Not available 02/23/2017 2599 RxNorm Armida Darbyzier linda, [place] [facility] 7 15:04:42 78611 Wellbutri n medicatio n Not available Not available Not available 02/23/2017 18216 RxNorm Armida Darbyzier linda, [place] [facility] 7 15:05:01 70847 mirtazapi ne medicatio n Not available Not available Not available 02/23/2017 11373 RxNorm Armida mckeon, [place] [facility] 7 15:05:39 4741 Remeron medicatio n Not available Not available Not available 08/05/2012 54155 4 RxNorm Armida mckeon, [place] [facility] 3 14:22:46 4742 morphine medicatio n respirato ry distress Not available Not available 08/05/2012 7052 RxNorm Armida mckeon, [place] [facility] 4 10:46:06 5361 sulindac medicatio n arthralgi a (joint pain) Not available Not available 10/18/2012 01330 RxNorm Armida mckeon, [place] [facility] 3 14:30:10 6541 tramadol medicatio n headache Not available Not available 02/24/2013 75313 RxNorm Nani mas MD [facility] [employer] [address] , [address], [facility] [place], [address] [facility] [place] [facility] 9 10:01:55 9401 Lyrica medicatio n headache Not available Not available 03/29/2014 41853 1 RxNorm Armida mckeon, [place] - [place] [...] Not Available Not Available Not Available Afluria 8832-3724(P F) 45 mcg (15 mcg x 3)/0.5 [...] Available Not Available Not Available Fluzone High-Dose 5068-1911 (PF) 180 mcg/0.5 mL intramuscul ar syringe [...] Recorded Body height Heart rate Oxygen saturation Systolic And Diastolic Provider Name and Address Organization Details Last Updated DateTime 06/13/2020 154.94 cm 97 /min 96 % 149/75 mm[Hg] Katie Alford [facility] 06/13/2020 09:36:50 Date Recorded Body height Heart rate Oxygen saturation Systolic And Diastolic Provider Name and Address Organization Details Last Updated DateTime 09/12/2020 154.94 cm 93 /min 96 % 142/100 mm[Hg] Katie Chris [place] [facility] 09/12/2020 11:00:08 Social History Question Answer Notes LastModified by [employer] Details LastModified Time Tobacco Smoking Status Former Smoker She is on a nicotine patch and states she has quit. Not Available [employer] 03/23/2020 03:16:11 Which Illicit Or Recreational Drugs Have You Used? Marijuana [id number] Information not available 03/23/2020 Education 12 Information no t available 08/05/2012 Live Alone Or With Others? With Others Nephew Information not available 08/05/2012 Marital Status Informatio n not available 08/05/2012 What Was The Date Of Your Most Recent Tobacco Screening? 06/30/2018 [id number] Information not available 03/23/2020 How Much Tobacco Do You Smoke? 0.5 PPD [id number] Information not available 03/23/2020 Sex: Unknown Functional Status Question Answer Note LastModified by [employer] Details LastModified Time What is your level of alcohol consumption? None [id number] Information not available 03/23/2020 Are you currently employed? Yes Disabled [id number] Information not available 03/23/2020 Mental Status None [...] ICD10 Code Diagnosis IMO Codes Diagnosis Note 58315 Nani Baker MD PAIN OFFICE [address] [facility] [place] [address] 08/05/2012 13:21:37 08/05/2012 15:33:38 62034 Nani Baker MD PAIN OFFICE [address] [facility] [place] [address] 10/18/2012 14:16:54 10/18/2012 15:51:29 06030 Nani Baker MD PAIN OFFICE [address] [place] [address] 11/18/2012 10:11:02 11/18/2012 15:37:35 87511 Nani Baker MD PAIN OFFICE [address] [place] [address] 01/24/2013 13:25:53 01/24/2013 16:24:59 06664 Nani Baker MD [facility] PAIN OFFICE [address] [place] [address] 02/24/2013 10:57:59 02/25/2013 09:00:54 15613 Nani Baker MD PAIN OFFICE [address] [place] [address] 03/23/2013 13:53:07 03/23/2013 15:41:57 Lumbosacral spondylosis without myelopathy 11318154 Displaceme nt of lumbar intervertebral disc without myelopathy 88700168 09953 Nani Baker MD PAIN OFFICE [address] [place] [address] 04/05/2013 12:57:19 04/05/2013 15:43:47 Lumbosacral spondylosis without myelopathy 00909283 Displaceme nt of lumbar intervertebral disc without myelopathy 25786667 Lumbosacra l radiculitis 17096804 66546 Nani Baker MD PAIN OFFICE [address] [facility] [place] [place] [address] 05/04/2013 10:54:36 05/04/2013 15:05:24 Lumbosacral spondylosis without myelopathy 15840939 Displaceme nt of lumbar intervertebral disc without myelopathy 81988431 Lumbosacra l radiculitis 30851654 17153 Nani Baker MD PAIN OFFICE [address] [place] [address] 07/27/2013 09:43:56 07/27/2013 11:42:54 Lumbosacral spondylosis without myelopathy 48552201 Displaceme nt of lumbar intervertebral disc without myelopathy 02881667 Lumbosacra l radiculitis 85471950 62655 Nani Baker MD PAIN OFFICE [address] [facility] [place] [address] 08/01/2013 13:26:06 08/02/2013 10:33:30 Lumbosacral spondylosis without myelopathy 70871015 Displaceme nt of lumbar intervertebral disc without myelopathy 25448930 Lumbosacra l radiculitis 46245706 67803 Nani Baker MD [facility] PAIN OFFICE [address] [facility] [place] [address] 08/30/2013 10:43:35 09/02/2013 09:22:59 Lumbosacral spondylosis without myelopathy 87232638 Displaceme nt of lumbar intervertebral disc without myelopathy 91039217 Lumbosacra l radiculitis 66243690 72878 Nani Baker MD PAIN OFFICE [address] [facility] [place] [address] 10/06/2013 11:00:49 10/07/2013 11:11:22 Lumbosacral spondylosis without myelopathy 11686776 Displaceme nt of lumbar intervertebral disc without myelopathy 00223686 Lumbosacra l radiculitis 62678619 27548 Nani Baker MD PAIN OFFICE [address] [facility] [place] [address] 10/24/2013 13:22:09 10/27/2013 09:18:15 Lumbosacral spondylosis without myelopathy 08968304 Displaceme nt of lumbar intervertebral disc without myelopathy 42467569 Lumbosacra l radiculitis 50202297 07043 Nani Baker MD PAIN OFFICE [address] [facility] [place] [address] 11/07/2013 10:27:07 11/08/2013 14:06:31 Lumbosacral spondylosis without myelopathy 30986436 Displaceme nt of lumbar intervertebral disc without myelopathy 92752179 Lumbosacra l radiculitis 70556106 10864 Nani Baker MD PAIN OFFICE [address] [facility] [place] [address] 11/29/2013 10:00:54 12/03/2013 16:50:45 Lumbosacral spondylosis without myelopathy 37744757 Displaceme nt of lumbar intervertebral disc without myelopathy 01166983 Lumbosacra l radiculitis 73050493 66952 Nani Baker MD PAIN OFFICE [address] [facility] [place] [address] 12/26/2013 10:21:37 12/27/2013 15:19:55 Lumbosacral spondylosis without myelopathy 85981679 Displaceme nt of lumbar intervertebral disc without myelopathy 19737090 Lumbosacra l radiculitis 11574136 39854 Nani Baker MD [facility] PAIN OFFICE [address] [facility] [place] [address] 01/17/2014 13:07:43 01/18/2014 15:46:33 Lumbosacral spondylosis without myelopathy 99145802 Displaceme nt of lumbar intervertebral disc without myelopathy 29151965 Lumbosacra l radiculitis 71052748 43455 Nani Baker MD PAIN OFFICE [address] [facility] [place] [address] 01/19/2014 10:41:36 01/20/2014 11:12:44 Lumbosacral spondylosis without myelopathy 54485731 Displaceme nt of lumbar intervertebral disc without myelopathy 77720723 Lumbosacra l radiculitis 66288008 25471 Nani Baker MD PAIN OFFICE [address] [facility] [place] [address] 02/21/2014 10:49:23 02/21/2014 11:45:38 Lumbosacral spondylosis without myelopathy 49081136 Displaceme nt of lumbar intervertebral disc without myelopathy 67084073 Lumbosacra l radiculitis 06750121 41459 Nani Baker MD PAIN OFFICE [address] [facility] [place] [address] 03/29/2014 10:32:34 03/29/2014 11:28:43 Lumbosacral spondylosis without myelopathy 53215075 Displaceme nt of lumbar intervertebral disc without myelopathy 50096773 Lumbosacra l radiculitis 03134880 63114 Nani Baker MD [facility] PAIN OFFICE [address] [place] [address] 04/06/2014 14:07:44 04/06/2014 15:48:45 Lumbosacral spondylosis without myelopathy 83209207 Displaceme nt of lumbar intervertebral disc without myelopathy 81242819 Lumbosacra l radiculitis 09644939 86326 Nani Baker MD SV PAIN OFFICE [address] [facility] [place] [address] 04/27/2014 13:56:39 04/29/2014 21:26:25 Lumbosacral spondylosis without myelopathy 32745587 Displaceme nt of lumbar intervertebral disc without myelopathy 72092983 Lumbosacra l radiculitis 12637475 38524 Nani Baker MD SV PAIN OFFICE [address] [place] [address] 05/17/2014 11:13:27 05/17/2014 15:18:53 Lumbosacral spondylosis without myelopathy 92371621 Displaceme nt of lumbar intervertebral disc without myelopathy 92921408 Lumbosacra l radiculitis 63850331 72181 Nani Baker MD PAIN OFFICE [address] [place] [address] 08/10/2014 15:17:32 08/16/2014 10:42:28 Lumbosacral spondylosis without myelopathy 66989299 Displaceme nt of lumbar intervertebral disc without myelopathy 00617377 Lumbosacra l radiculitis 97657675 95281 Nani Baker MD [facility] PAIN OFFICE [address] [place] [address] 09/28/2014 14:00:05 10/01/2014 10:50:12 Lumbosacral spondylosis without myelopathy 46057582 Displaceme nt of lumbar intervertebral disc without myelopathy 09532271 Lumbosacra l radiculitis 49032097 Enthesopat hy of hip region 80616635 Compressio n fracture of vertebral column 55022069 37478 Nani Baker MD SV PAIN OFFICE [address] [facility] [place] [address] 01/04/2016 10:22:33 01/12/2016 18:39:32 Lumbosacral spondylosis without myelopathy 82224415 M47.817 Displaceme nt of lumbar intervertebral disc without myelopathy 99380014 M51.26 Enthesopat hy of hip region 10259692 M76.9 48583 Nani Baker MD PAIN OFFICE [address] [facility] [place] [address] 12/04/2016 09:35:15 01/11/2017 18:16:46 Lumbosacral spondylosis without myelopathy 74357772 M47.817 Displaceme nt of lumbar intervertebral disc without myelopathy 18388074 M51.26 Enthesopat hy of hip region 32340035 M76.9 85546 Nani Baker MD PAIN OFFICE [address] [place] [address] 02/23/2017 14:52:43 02/25/2017 15:20:57 Displacement of lumbar intervertebral disc without myelopathy 26499380 M51.26 Lumbosacra l radiculitis 95512007 M54.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 03252271 M47.817 45615 Nani Baker MD PAIN OFFICE [address] [place] [address] 03/17/2017 13:04:51 03/19/2017 11:14:52 Displacement of lumbar intervertebral disc without myelopathy 32339841 M51.26 Lumbosacra l radiculitis 42156378 M54.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 47759764 M47.817 59462 Nani Baker MD PAIN OFFICE [address] [facility] [place] [address] 03/31/2017 09:22:04 04/01/2017 13:37:43 Lumbosacral radiculitis 84114710 M54.17 Displaceme nt of lumbar intervertebral disc without myelopathy 46253455 M51.26 Lumbosacra l spondylosis without myelopathy 96930463 M47.817 32125 Nani Baker MD [facility] PAIN OFFICE [address] [place] [address] 04/24/2017 08:50:47 04/24/2017 13:41:37 Lumbosacral radiculitis 76852149 M54.17 Displaceme nt of lumbar intervertebral disc without myelopathy 17060896 M51.26 Lumbosacra l spondylosis without myelopathy 29014966 M47.817 79699 Nani Baker MD SV PAIN OFFICE [address] [place] [address] 05/19/2017 14:06:27 05/21/2017 11:21:34 Lumbosacral radiculitis 66238640 M54.17 Displaceme nt of lumbar intervertebral disc without myelopathy 39046930 M51.26 Lumbosacra l spondylosis without myelopathy 44315645 M47.817 47218 Nani Baker MD PAIN OFFICE [address] [place] [address] 10/07/2017 11:31:45 10/07/2017 14:36:01 Displacement of lumbar intervertebral disc without myelopathy 88329484 M51.26 Lumbosacra l radiculitis 62740628 M54.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 05132014 M47.817 45044 Nani Baker MD PAIN OFFICE [address] [place] [address] 11/09/2017 15:30:47 11/13/2017 08:33:20 Postherpetic neuralgia 0440576 B02.29 Lumbosacra l radiculitis 61489588 M54.17 Displaceme nt of lumbar intervertebral disc without myelopathy 72685535 M51.26 Lumbosacra l spondylosis without myelopathy 99507588 M47.817 67051 Nani Baker MD PAIN OFFICE [address] [place] [address] 11/25/2017 10:19:02 11/26/2017 10:26:57 Displacement of lumbar intervertebral disc without myelopathy 44509046 M51.26 Lumbosacra l radiculitis 08898212 M54.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 21495807 M47.817 16904 Nani Baker MD PAIN OFFICE [address] [place] [address] 01/26/2018 11:15:45 01/28/2018 09:21:50 Displacement of lumbar intervertebral disc without myelopathy 92969374 M51.26 Lumbosacra l radiculitis 70562958 M54.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 50295809 M47.817 55685 Nani Baker MD PAIN OFFICE [address] [place] [address] 03/22/2018 14:23:54 03/22/2018 16:13:18 Displacement of lumbar intervertebral disc without myelopathy 88667298 M51.26 Lumbosacra l radiculitis 75931363 M54.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 50628356 M47.817 41161 Nani Baker MD PAIN OFFICE [address] [place] [address] 04/07/2018 11:29:53 04/08/2018 10:07:21 Displacement of lumbar intervertebral disc without myelopathy 77529348 M51.26 Lumbosacra l radiculitis 57938726 M54.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 15746042 M47.817 90812 Nani Baker MD PAIN OFFICE [address] [place] [address] 04/20/2018 13:09:21 04/20/2018 15:17:00 Displacement of lumbar intervertebral disc without myelopathy 50876360 M51.26 Lumbosacra l radiculitis 71766838 M54.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 09146386 M47.817 04209 Nani Baker MD PAIN OFFICE [address] [place] [address] 05/10/2018 10:04:19 05/10/2018 11:17:05 Displacement of lumbar intervertebral disc without myelopathy 64868738 M51.26 Lumbosacra l radiculitis 18380376 M54.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 71526272 M47.817 86552 Nani Baker MD PAIN OFFICE [address] [place] [address] 05/19/2018 09:56:28 05/19/2018 15:41:12 Displacement of lumbar intervertebral disc without myelopathy 95114346 M51.26 Lumbosacra l radiculitis 85926309 M54.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 31872454 M47.817 16566 Nani Baker MD PAIN OFFICE [address] [place] [address] 05/26/2018 13:50:26 05/26/2018 15:01:39 Compression fracture of vertebral column 15446586 M48.50XA Lumbosacra l radiculitis 04638960 M54.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 67054292 M47.817 Displaceme nt of lumbar intervertebral disc without myelopathy 85432024 M51.26 65321 Nani Baker MD PAIN OFFICE [address] [place] [address] 06/30/2018 13:04:08 06/30/2018 15:53:01 Compression fracture of vertebral column 58517987 M48.50XA Lumbosacra l radiculitis 20212118 M54.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 13937471 M47.817 Displaceme nt of lumbar intervertebral disc without myelopathy [id number] M51.26 94998 Nani Baker MD PAIN OFFICE [address] [place] [address] 02/18/2019 11:22:38 02/24/2019 16:59:49 Displacement of lumbar intervertebral disc without myelopathy 83929707 M51.26 Lumbosacra l radiculitis 80675529 M54.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 91127012 M47.817 45745 Nani Baker MD PAIN OFFICE [address] [facility] [place] [address] 03/16/2019 09:37:32 03/18/2019 15:35:03 Displacement of lumbar intervertebral disc without myelopathy 23554727 M51.26 Lumbosacra l radiculitis 33869982 M54.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 96859498 M47.817 32773 Nani Baker MD PAIN OFFICE [address] [facility] [place] [address] 04/27/2019 13:01:33 04/29/2019 16:03:44 Displacement of lumbar intervertebral disc without myelopathy 55099526 M51.26 Lumbosacra l radiculitis 32209491 M54.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 16463325 M47.817 95712 Nani Baker MD PAIN OFFICE [address] [facility] [place] [address] 06/29/2019 11:44:47 06/29/2019 14:05:58 Displacement of lumbar intervertebral disc without myelopathy 55463141 M51.26 Lumbosacra l radiculitis 91323993 M54.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 17958447 M47.817 68986 Nani Baker MD PAIN OFFICE [address] [facility] [place] [address] 08/08/2019 10:52:11 08/08/2019 11:32:02 Displacement of lumbar intervertebral disc without myelopathy 85079939 M51.26 Lumbosacra l radiculitis 98739495 M54.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 75830450 M47.817 05558 Nani Baker MD PAIN OFFICE [address] [facility] [place] [address] 10/24/2019 11:08:07 10/24/2019 11:23:30 Displacement of lumbar intervertebral disc without myelopathy 44921514 M51.26 Lumbosacra l radiculitis 18611157 M54.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 02564327 M47.817 59160 Nani Baker MD SV PAIN OFFICE [address] [place] [address] 10/25/2019 13:58:37 10/27/2019 10:16:27 Displacement of lumbar intervertebral disc without myelopathy 63467199 M51.26 Lumbosacra l radiculitis 73499953 M54.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 29356437 M47.817 17685 Nani Baker MD SV PAIN OFFICE [address] [facility] [place] [address] 11/24/2019 09:33:21 11/24/2019 09:59:39 Displacement of lumbar intervertebral disc without myelopathy 51885377 M51.26 Lumbosacra l radiculitis 70722391 M54.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 32916721 M47.817 23174 Nani Baker MD PAIN OFFICE [address] [facility] [place] [address] 02/08/2020 08:30:06 02/08/2020 09:36:12 Displacement of lumbar intervertebral disc without myelopathy 48971819 M51.26 Lumbosacra l radiculitis 56420943 M54.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 49683959 M47.817 52614 Nani Baker MD PAIN OFFICE [address] [facility] [place] [address] 03/13/2020 14:47:56 03/13/2020 16:08:29 Displacement of lumbar intervertebral disc without myelopathy 80062857 M51.26 Lumbosacra l radiculitis 33861677 M54.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 24652145 M47.817 83551 Nani Baker MD PAIN OFFICE [address] [facility] [place] [address] 05/02/2020 09:37:41 05/02/2020 09:45:38 Displacement of lumbar intervertebral disc without myelopathy 19834320 M51.26 Lumbosacra l radiculitis 62470838 M54.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 03383817 M47.817 84440 Nani Baker MD PAIN OFFICE [address] [place] [address] 06/13/2020 09:22:04 06/13/2020 13:57:59 Displacement of lumbar intervertebral disc without myelopathy 48780847 M51.26 Lumbosacra l radiculitis 22798319 M54.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 48733389 M47.817 13920 Nani Baker MD SV PAIN OFFICE [address] [place] [address] 08/02/2020 14:05:18 08/02/2020 14:11:48 Displacement of lumbar intervertebral disc without myelopathy 54969517 M51.26 Lumbosacra l radiculitis 12245880 M54.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 13842618 M47.817 28511 Nani Baker MD PAIN OFFICE [address] [place] [address] 09/12/2020 10:50:25 09/12/2020 16:08:53 Displacement of lumbar intervertebral disc without myelopathy 30356413 M51.26 Lumbosacra l radiculitis 28735713 M54.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 71484763 M47.817 50895 Nani Baker MD PAIN OFFICE [address] [place] [address] 11/09/2020 11:12:28 11/14/2020 11:32:15 Displacement of lumbar intervertebral disc without myelopathy 36994956 M51.26 Lumbosacra l radiculitis 62027701 M54.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 10421292 M47.817 Health Concerns Section Related Observation LastModified by Organization Detai ls LastModified Time None Recorded Concern Status LastModified by Organization Details LastModified Time None Recorded Advance Directives Directive None Recorded Payers Insurance Date Sequence Insurance Name Policy Number Policy Richardson Covered Member ID Richardson Member ID Guarantor Name 06/13/2020 [employer] [id number] Tova Lopez 06/13/2020 1 [place] [employer] Tova Lopez [id number] Tova Lopez 06/13/2020 2 [place] [facility] Tova Lopez [id number] Tova Lopez 06/13/2020 1 [employer] [facility] [employer] - DOS PRIOR TO 2022 - DUAL ELIGIBLE (MEDICARE REPLACEMENT/AD VANTAGE - HMO) Tova Lopez [id number] Tova Lopez 06/13/2020 1 [place] [employer] Tova Lopez [id number] Tova Lopez 06/13/2020 1 [place] [facility] Tova Lopez [id number] Tova Lopez 08/02/2020 1 [employer] - DOS PRIOR TO 2022 - DUAL ELIGIBLE (MEDICARE REPLACEMENT/AD VANTAGE - HMO) Tova Lopez [id number] Tova Lopez Notes Date Note Type Note [...] bladder or bowel incontinence. Nani Baker MD [address] [place] [address] , [address], [place], [address], [place] - [facility] 05/07/2020 11:11:41 06/13/2020 text/html She is here for a lumbar epidural steroid injection under fluoroscopic guidance. She has stopped Xarelto for the procedure. Nani Baker MD [address] [facility] , [address], [place], [address], [facility] - Pain Management 06/13/2020 15:54:04 08/02/2020 text/html [...] a cast . She is going to [place] for a trip to see her sons. Nani Baker MD [address] [facility] , [address], [place], [address], [facility] - Pain Management 08/10/2020 09:32:56 09/12/2020 text/html She is here for a lumbar epidural steroid injection under fluoroscopic guidance. She has stopped Xarelto for the procedure.She is S/P Fall at home with right wrist injury Nani Baker MD [address] [facility] , [address], [place], [address], [facility] - Pain Management 09/12/2020 16:20:02 11/09/2020 text/html [...] or bowel incontinence. Nani Baker MD [address] [facility] , [address], [place], [address], [facility] - Pain Management 11/14/2020 15:46:05 OBGyn Episode No OBEpisode recorded.
--- OUTSIDE RECORDS SUMMARY | 2025-04-28 12:32 | XMS_ITS | Continuity of Care Document ---
Author Name [facility]ED, Medical Address [address] [place] [address] Organization Unknown Address [address] [place] [address] Medications No known medications Problems No known problems
== END 2025-04-28 12:37 | disposition home or self-care (01) ==
PROVIDERS: PCP Nurse Practitioner Family; Visit Provider Nurse Practitioner Family
DX: R09.89 Other specified symptoms and signs involving the circulatory and respiratory systems (principal)

== ENCOUNTER 2025-04-28 11:41 | Outpatient (REF) | payer OTHER, SELFPAY ==
--- NOTE | ~2025-04-28 | XR_ITS ---
EXAMINATION: XR CHEST CLINICAL INFORMATION: R09.89 - Other specified symptoms and signs involving the circulatory an... COMPARISON: Radiographs on August 11, 2023 TECHNIQUE: 2 views of the chest were obtained. FINDINGS: Devices/Tubes/Lines: Spinal cord stimulator has been removed. Lungs: No focal consolidation or evidence of pulmonary edema. Pleura: No pleural effusion or pneumothorax. Heart/Mediastinum: Cardiomediastinal silhouette is within normal limits. Bones: Unchanged probably chronic mild compression deformity of T10 vertebral body. XR/XR chest 2V IMPRESSION: No acute cardiopulmonary process. Electronically signed by: Brien Eller MD 04/28/2025 01:37 PM [facility]
== END 2025-04-28 11:42 | disposition home or self-care (01) ==
LOC: HO.HMGCX 11:41
PROVIDERS: PCP Nurse Practitioner Family; Visit Provider Nurse Practitioner Family
DX: R09.89 Other specified symptoms and signs involving the circulatory and respiratory systems (principal); J44.1 Chronic obstructive pulmonary disease with (acute) exacerbation; F17.210 Nicotine dependence, cigarettes, uncomplicated
CPT/HCPCS: 71046; 99212

== ENCOUNTER → 2025-04-28 13:14 | Outpatient (BNV) | payer OTHER, SELFPAY | PROVIDERS: PCP Nurse Practitioner Family; Visit Provider Radiology Body Imaging | DX: R09.89 Other specified symptoms and signs involving the circulatory and respiratory systems (principal) | CPT/HCPCS: 71046 ==

== ENCOUNTER 2025-05-11 10:15 | Outpatient (AMB) | payer OTHER, SELFPAY ==
--- OUTSIDE RECORDS SUMMARY | 2024-02-16 10:30 | XMS_ITS ---
Author Organization [facility] Address [address] [place] [address] Care Team Providers Care Maintenance Machinist Name Role Phone Jung Randhawa Primary Care Provider Unav ailable Mireya Darby [phone] REASON FOR VISIT Seen Sooner Encounters Encounter Location Date Provider Diagnosis [facility] [address] [place] [address] 02/16/2024 Mireya Darby Plan Of Treatment Next Appt Details Provider Name:Mireya castillo, 06/20/2025 02:00:00 PM, [address] [place], [address], Progress Notes * Tova LOPEZDOB:1945 (80 yo F)Acc No.[id number]:02/16/2024 Progress Note Patient: Daija MARQUESith Provider: Rocio Darby DPM :1945 A ge:79 Y S ex:Female Date:02/16/2024 Address[address] [id number] Pcp:MONIQUE Yeung Subjective: * Chief Complaints: * 1 . Seen Sooner. * Medical History: Objective: * Vitals: Assessment: Plan: * Treatment: * Images: * The named appointment provid er may or may not be the originator of this progress note, and it is not deemed complete until electronically signed by the appointment provider. Sign off status: Pending * Provider: Rocio Darby, JERARDO Date: 0 02/16/2024 Generated for Jacinto delatorre/Love/Tez on: 1 07/12/2024 12:23 PM EST
--- OUTSIDE RECORDS SUMMARY | 2024-12-20 10:30 | XMS_ITS ---
Author Organization [facility] Address [address] [place] [address] Care Team Providers Care Casserole Preparer Name Role Phone Jung Randhawa Primary Care Provider Unav Mireya Khan Unavailable [phone] Allergies Allergen (clinical drug ingredient) Drug/Non Drug [...] agent (FN) Cephalosporins Unknown Drug Allergy Active Medications Medication SIG (Take, Route, Frequency, Duration) Notes Start Date End Date Status clonazePAM 0.5 MG 1 tablet at bedtime Orally Once a day Active Atorvastatin Calcium 40 MG 1 tablet Orally Once a day; Duration: 30 day(s) Active traZODone HCl 150 MG 1 tablet at bedtime Orally Once a day; Duration: 30 day(s) Active Vitamin D3 Active Walking Boot/Pneumatic As directed Wear Daily; Duration: Until further notice 12/06/2019 Not-Taking dilTIAZem HCl 120 MG as directed Orally Active Multi For Her - as directed Orally Active Cetirizine HCl 10 MG 1 tablet Orally Onc e a day; Duration: 30 day(s) Active Xarelto 10 MG 1 tablet with food Orally Once a day; Duration: 30 day(s) Active Encounters Encounter Location Date Provider Diagnosis [facility] [address] [place] [address] 12/20/2024 Mireya Darby Plan Of Treatment Next Appt Details Provider Name:Mireya Palacios Jase anna, 06/20/2025 02:00:00 PM, [address] [place] [address], [phone], Progress Notes * Tova LOPEZDOB:1945 (80 yo F)Acc No.[id number]:12/20/2024 Progress Note Patient: Tova MARQUES Provider: Rocio Darby DPM :1945 A ge:79 Y S ex:Female Date:12/20/2024 Address: [address], [place] , [facility] Pcp:Jung Schaefer NP-BC Subjective: * Chief Complaints: * * Medical History: A nxiety, Arthritis, Asthma, Cancer, Fibromyalgia, Heart disease, Hepatitis C, COPD, Osteoporosis, Sciatica, Warts, Measles. * Medications: T aking Multi For Her - Tablet as directed Orally , Taking dilTIAZem HCl 120 MG Tablet as directed Orally , Taking Xarelto 10 MG Tablet 1 tablet with food Orally Once a day , Taking Cetirizine HCl 10 MG Tablet 1 tablet Orally Once a day , Taking Atorvastatin Calcium 40 MG Tablet 1 tablet Orally Once a day , Taking clonazePAM 0.5 MG Tablet 1 tablet at bedtime Orally Once a day , Taking Vitamin D3 , Taking traZODone HCl 150 MG Tablet 1 tablet at bedtime Orally Once a day , Not-Taking/PRN Walking Boot/Pneumatic As directed Wear Daily * Allergies: T ramadol HCl, Naproxen, CloNIDine, Remeron, BuPROPion HCl, Mirtazapine, Gabapentin, Cephalosporins. Objective: * Vitals: Assessment: Plan: * Treatment: * Images: * The named appointment provid er may or may not be the originator of this progress note, and it is not deemed complete until electronically signed by the appointment provider. Sign off status: Pending * Provider: Rocio Darby DPM Date: 0 12/20/2024 Generated for Jacinto delatorre/Love/Tez on: 1 07/12/2024 12:22 PM EST
--- NOTE | 2025-05-11 10:31 | A.OFFPC_ITS ---
Vital Signs 05/11/25 10:51 Height 5 ft Weight 107 lb BMI 20.9 BP 128/60 Blood Pressure Location Lt brachial Position Sitting Respiration 16 Intake Visit Reasons: Headaches Accompanied by: Self / Same As Patient Allergies Cephalosporins (CEPHALOSPORINS) Allergy (Unknown, Verified 05/11/25 10:51) UNKNOWN gabapentin (GABAPENTIN) Allergy (Unknown, Verified 05/11/25 10:51) UNKNOWN mirtazapine (From REMERON) Allergy (Unknown, Verified 05/11/25 10:51) UNKNOWN naproxen Allergy (Unknown, Verified 05/11/25 10:51) UNKNOWN tramadol Allergy (Unknown, Verified 05/11/25 10:51) UNKNOWN bupropion (From WELLBUTRIN) Adverse Reaction (Unknown, Verified 05/11/25 10:51) Shaky Medication List - Last Reconciled 05/11/25 by Jung Schaefer [facility]- albuterol sulfate 90 mcg/actuation 2 puffs PO Q6H PRN albuterol sulfate 2.5 mg (3 mL) inhalation TID amoxicillin-pot clavulanate 875-125 mg 1 tab PO BID 7 days atorvastatin 40 mg PO DAILY benzonatate 100 mg PO BID PRN 7 days cetirizine 10 mg PO DAILY cholecalciferol (vitamin D3) 50 mcg PO DAILY clonazepam 0.5 mg PO BID cyclobenzaprine 5 mg PO Q8H PRN diltiazem HCl ER (Tiadylt ER) 120 mg PO DAILY [[employer] ] fluticasone propionate 110 mcg/actuation 1 puff inhalation BID ipratropium-albuterol 0.5 mg-3 mg(2.5 mg base)/3 mL 3 mL inhalation Q4-6H PRN magnesium oxide 420 mg PO BEDTIME meclizine 25 mg PO DAILY PRN rivaroxaban (Xarelto) 20 mg PO DAILY sumatriptan succinate take 1 tab at onset of headache; if no relief may repeat 1 tab after at least 2 hrs; max = 4 tabs/24 hr PO trazodone 150 mg PO BEDTIME Tobacco use date assessed: 05/11/25 Fall risk assessment: 1 Fall in past year Last assessed Fall Risk: 05/11/25 Dental Screening Dental Screen Date: 05/11/25 Did you have a dental visit in the last 12 months?: No Did you have a dental problem in the last 6 months where you did not have access to dental care?: No Was dental information given to patient?: Patient declined HPI Headaches HPI Details Chief Complaint Patient presents for a follow-up visit for ongoing headaches. History of Present Illness The patient is a 80-year-old female presenting for a follow-up for ongoing headaches. She reports the headaches began around August after hitting the top of her head. The headaches originate at the top of her head and can radiate laterally, posteriorly, and anteriorly. A head CT performed in July showed no acute findings (previous to hitting head, though no LOC) Tylenol provides some relief, and she believes sumatriptan also helped. A previous referral to neurology was not completed because her insurance was not accepted. Social History - Insurance: The patient was unable to s ee a neurology specialist previously because they did not accept her insurance. Health Maintenance - Headache prevention: Recommended to st art magnesium and vitamin B2. Review of Systems - Neurological: Reports headaches. - Denies visual changes, blurred vision, numbness, tingling, loss of use of an extremity, or dizziness. - Constitutional: Denies fever or chills . - Cardiovascular: Denies chest pain. - Respiratory: Denies increased shortnes s of breath. - Gastrointestinal: Denies nausea or vom iting. Physical Exam General: Cooperative, healthy appearing, comfortable, no acute distress and well developed Orientation: Patient oriented x3 Limitations: No limitations Head: Normal to inspection Ears: Hearing grossly normal bilaterally Nose: Normal external nose present Face and sinus: Normal facial exam Eyes: Appearance normal, both eyes and all related structures Neck: Normal visual inspection and Yes full ROM Respiratory: Normal respiratory effort and able to speak in complete sentences. Clear/dim Cardiovascular: Regular rate and rhythm. Normal S1 and S2 GI: Normal to inspection. Soft to palpation and nontender Skin: No rashes or lesions noted Neuro: CN2 through 12 intact. Patient oriented x3 Extremities: Normal to inspection Results - Head CT (July): No acute findings (though previous to hitting her head). Plan 1. Post-Concussive Syndrome The patient's ongoing headaches since a head injury in August are concerning for post-concussive syndrome. A new referral will be placed to a different neurology facility for further evaluation, as a previous attempt was unsuccessful due to insurance issues. For abortive therapy, sumatriptan has been prescribed, which the patient believes was helpful previously. For prevention, the patient will start magnesium and vitamin B2. She may continue to use Tylenol for symptomatic relief. Discussion Notes I have discussed my suspicion of post-concussive syndrome with the patient, given her history of hitting her head in August followed by persistent headaches. I informed her that the head CT from July showed no acute issues, which is reassuring. I am placing a new referral to a different neurology facility for specialist evaluation. We discussed treatment options, including the use of sumatriptan for acute headaches and starting magnesium and vitamin B2 for prevention. I advised her to follow up after her neurology appointment. Patient Instructions - A new referral has been made for you t o see a neurology specialist for your headaches. - Please schedule an appointment with em. - You can use Tylenol as needed to help with your headaches. - A prescription for sumatriptan has bee n sent to your pharmacy. - Take one tablet when a headache starts . - To help prevent your headaches, please start taking magnesium and vitamin B2 supplements. - Please schedule a follow-up appointmen t after you have seen the neurologist. [facility] Medical History Generalized headaches Nocturnal hypoxemia Basal cell carcinoma History of COVID-19 (~06/2021) Personal history of nicotine dependence Osteopenia (~2009) History of non-ST elevation myocardial infarction (NSTEMI) (~04/2016) COPD (chronic obstructive pulmonary disease) Depression with anxiety Brain aneurysm Bilateral carotid artery stenosis PAF (paroxysmal atrial fibrillation) (~04/2016) Atherosclerotic cardiovascular disease Surgical History History of inguinal hernia repair, bilateral (~2018) History of skin surgery History of arthroscopic surgery of shoulder (~2009) History of carpal tunnel release History of bladder surgery History of thumb surgery History of tubal ligation History of total hysterectomy Family History Father No problems noted. Mother No problems noted. Brother Stroke Social History Household Members: None Housing: Other Housing Other:: mobile home Are you a primary home care manager rn to a significant other at home: No Do you presently have visiting nurse or other home services: Yes ([facility] q6 months) Comment: MEDICATED Patient Tobacco Use Status: Current everyday Tobacco user Tobacco use type: Cigarette Cigarette Packs Per Day: 0.5 Cigarettes Per Day: 7 Years Smoked: 68 Packs Per Year: 34 Packs per year/per ci.80 e-Cigarette/Vaping Use: Former Use Substance Use Type: Marijuana Advance Directives Date on File: 08/03/23 service: No Current occupational status: retired and disabled Cognitive needs: No Hearing needs: No Vision needs: No Questionnaire Thrive Questionnaire Date Thrive assessed: 10/11/24 ARPITA-7 AMB Questionnaire ARPITA-7 Date ARPITA - 7 assessed: 10/11/24 Source: Developed by Drs. Celso Chauhan, Naila Wilkins, Isael French and colleagues, with an educational edmundo from [employer]. Physical exam (Primary Care) Vital Signs: Last Vital Signs Resp 16 05/11/25 10:51 BP 128/60 05/11/25 10:51 BMI result Body Mass Index 20.9 Tobacco/Smoking Status: Tobacco use Status Tobacco use date assessed 05/11/25 05/11/25 10:53 Patient Tobacco Use Status Current everyday Tobacco 05/11/25 10:32 Tobacco use type Cigarette 05/11/25 10:32 e-Cigarette/Vaping Use Former Use 05/11/25 10:32 Thrive Assessment: Date of Thrive Assessment Date Thrive assessed 10/11/24 05/11/25 10:32 Coding Level of Care Code Est Pt Level 3 (17240) Diagnoses Chronic headaches R51.9; G89.29 Post concussive syndrome F07.81 Assessment & Plan Assessment & Plan (1) Chronic headaches: Code(s): R51.9 - Headache, unspecified; G89.29 - Other chronic pain Category: Medical (2) Post concussive syndrome: Code(s): F07.81 - Postconcussional syndrome Category: Medical Plan . Orders: Referrals Neurology Referral F07.81 - Postconcussional syndrome, G89.29 - Other chronic pain, R51.9 - Headache, unspecified Medications: New clotrimazole 2% (Clotrimazole-3) 1 appful vaginal BEDTIME 21 grams 0RF 3 days riboflavin (vitamin B2) 400 mg PO DAILY 90 tabs 0RF 90 days Refilled magnesium oxide 420 mg PO BEDTIME 30 tabs 4RF
[2025-05-11 10:51] VITALS: BP 128/60; RESP 16; BMI 20.9
--- OUTSIDE RECORDS SUMMARY | 2025-05-11 12:23 | XMS_ITS | Patient Health Record ---
[facility] Address [address] [facility] [place] [address] Care Team Providers Care Database Security Expert Name Role Phone Jung Randhawa Primary Care Provider UnaMireya Jara Unavailable [phone] Allergies Allergen (clinical drug ingredient) Drug/Non Drug [...] Problem Acquired hammer toe of right foot (3949998205977729) Other hammer toe(s) (acquired), right foot (M20.41) Active confirmed Problem Localized, primary osteoarthritis of the ankle and/or foot (625205081) Arthritis of joint of lesser toe, right (M19.071) Active confirmed Vital Signs Blood pressure diastolic 65 mm Hg 03/07/2025 Height 5 ft in 03/07/2025 Blood pressure systolic 128 mm Hg 03/07/2025 Weight 107 lbs 03/07/2025 BMI 20.89 kg/m2 03/07/2025 Encounters Encounter Location Date Provider Diagnosis [address] [address] 07/19/2024 Mireya Darby Fungal infection of nail B35.1 ; Other hammer toe(s) (acquired), right foot M20.41 ; Pain of toe of right foot M79.674 and Pain of toe of left foot M79.[address] [address] 10/11/2024 Mireya Perica Fungal infection of nail B35.1 ; Pain of toe of right foot M79.674 and Pain of toe of left foot M79.[address] [address] 03/07/2025 Mireya Perica Fungal infection of nail B35.1 ; Pain of toe of right foot M79.674 and Pain of toe of left foot M79.[address] [address] 12/19/2024 Mireya Darby Assessments Encounter Date Diagnosis [...] X ray : Foot, left 3V 12/06/2019 [address]4870- Unna Boot 11/29/2019 Next Appt Details Provider Name:Mireya castillo, 06/20/2025 02:00:00 PM, [address] [place], [address], Insurance Providers Payer Name Payer Address Payer Phone Subscriber Number Group Number Insured Name Patient Relationship to Insured Coverage Start Date Coverage End Date [facility] [employer] Claims [address] [facility] [place] [id number] [id number] Tova Lopez Self - patient is the insured Medical (General) History Medical History History ICD Code Anxiety Arthritis asthma Cancer Fibromyalgia Heart disease Hepatitis C COPD Osteoporosis Sciatica Warts Measles Surgical History Surgery Date(Month/Year) hysterectomy Hernia Repair X2 tubal ligation cancer surgery- nose and leg carpal tunnel surgery spinal stimulator put in and then remove d due to pain Hospitalization History Reason Date(Month/Year) [facility]/10/2023
== END 2025-05-11 11:27 | disposition home or self-care (01) ==
LOC: HO.HMCC 10:15
PROVIDERS: PCP Nurse Practitioner Family; Visit Provider Nurse Practitioner Family
DX: R51.9 Headache, unspecified (principal); G89.29 Other chronic pain; F07.81 Postconcussional syndrome

== ENCOUNTER → 2025-05-11 10:15 | Outpatient (BNVA) | payer OTHER, SELFPAY | PROVIDERS: PCP Nurse Practitioner Family; Visit Provider Nurse Practitioner Family | DX: F07.81 Postconcussional syndrome (principal); R51.9 Headache, unspecified; G89.29 Other chronic pain | CPT/HCPCS: 99212 ==